=== PATIENT | male | born 1945 | race Caucasian/White ===

== ENCOUNTER 2023-02-10 18:30 | Outpatient (RCR) | payer MEDICARE, OTHER, SELFPAY | END 2023-03-06 23:59 | disposition home or self-care (01) | LOC: MM 18:30 | PROVIDERS: PCP Family Medicine; Visit Provider Internal Medicine | DX: Z51.81 Encounter for therapeutic drug level monitoring (principal); Z79.01 Long term (current) use of anticoagulants; I82.409 Acute embolism and thrombosis of unspecified deep veins of unspecified lower extremity | CPT/HCPCS: 85610; G0463 ==

== ENCOUNTER 2023-02-14 07:14 | Outpatient (OUT) | payer MEDICARE, OTHER, SELFPAY ==
[2023-02-14 07:53] LABS: Anion Gap 8.2; BUN Creatinine Ratio 20.2; Calcium 9.2 mg/dL (8.5-10.1); Carbon Dioxide 34.7 mmol/L (21.0-32.0); Chloride 102 mmol/L (98-107); Estimated GFR (African America >60 (>=60); Estimated GFR (Non-African Ame 54 (>=60); Glucose 92 mg/dL (74-106); Potassium 3.9 mmol/L (3.5-5.1); Sodium 141 mmol/L (136-145)
[2023-02-14 07:55] LABS: Chol HDL Ratio 3.4; Cholesterol 189 mg/dL (<=200); HDL Cholesterol 56 mg/dL (40-60); Triglycerides 85 mg/dL (<=150)
== END 2023-02-14 07:15 ==
LOC: LAB 07:14
PROVIDERS: PCP Internal Medicine
DX: I50.32 Chronic diastolic (congestive) heart failure (principal); E78.5 Hyperlipidemia, unspecified
CPT/HCPCS: 36415; 80048; 80061

== ENCOUNTER 2023-03-11 10:35 | Outpatient (RCR) | payer MEDICARE, OTHER, SELFPAY | END 2023-04-06 17:13 | disposition home or self-care (01) | LOC: MM 10:35 | PROVIDERS: PCP Internal Medicine; Visit Provider Internal Medicine | DX: Z51.81 Encounter for therapeutic drug level monitoring (principal); Z79.01 Long term (current) use of anticoagulants; I82.409 Acute embolism and thrombosis of unspecified deep veins of unspecified lower extremity; Z86.711 Personal history of pulmonary embolism ==

== ENCOUNTER 2023-03-13 07:43 | Outpatient (OUT) | payer MEDICARE, OTHER, SELFPAY ==
[2023-03-13 08:47] LABS: Basophils Percent Auto 0.5 % (0.2-2.0); Eosinophils Absolute Auto 0.1 10^3/uL (0.0-0.7); Eosinophils Percent Auto 1.3 % (0.9-7.0); Hematocrit 38.8 % (42.0-54.0); Hemoglobin 12.5 g/dL (14.0-18.0); Immature Granulocytes Abs Auto 0.04 10^3/uL (0.00-0.03); Immature Granulocytes Pct Auto 0.5 % (0.0-0.5); Lymphocytes Absolute Auto 1.9 10^3/uL (1.2-3.8); Lymphocytes Percent Auto 24.5 % (20.5-60.0); Mean Corpuscular HGB Conc 32.2 g/dL (29.9-35.2); Mean Corpuscular Hemoglobin 29.6 pg (25.9-34.0); Mean Corpuscular Volume 91.7 fL (80.0-94.0); Mean Platelet Volume 9.9 fL (9.5-13.5); Monocytes Absolute Auto 0.6 10^3/uL (0.3-0.8); Monocytes Percent Auto 7.4 % (1.7-12.0); Neutrophils Absolute Auto 5.1 10^3/uL (1.4-6.5); Neutrophils Percent Auto 65.8 % (43.0-75.0); Platelet Count 263 10^3/uL (150-450); Red Blood Count 4.23 10^6/uL (4.70-6.10); White Blood Count 7.7 10^3/uL (4.0-11.0)
[2023-03-13 09:45] LABS: Alanine Aminotransferase 15 U/L (16-63); Albumin Globulin Ratio 1.1; Albumin Level 3.4 g/dL (3.4-5.0); Alkaline Phosphatase 92 U/L (46-116); Anion Gap 6.6; Aspartate Amino Transferase 14 U/L (15-37); Bilirubin Total 0.5 mg/dL (0.2-1.0); Calcium 8.7 mg/dL (8.5-10.1); Carbon Dioxide 33.8 mmol/L (21.0-32.0); Chloride 104 mmol/L (98-107); Chol HDL Ratio 2.6; Cholesterol 141 mg/dL (<=200); Estimated GFR (African America >60 (>=60); Estimated GFR (Non-African Ame 58 (>=60); Free T3 1.69 pg/mL (2.18-3.98); Glucose 84 mg/dL (74-106); HDL Cholesterol 54 mg/dL (40-60); LDL Cholesterol Calculated 72.4 mg/dL; Potassium 3.4 mmol/L (3.5-5.1); Sodium 141 mmol/L (136-145); Thyroid Stimulating Hormone 1.453 uIU/mL (0.358-3.740); Total Protein 6.4 g/dL (6.4-8.2); Triglycerides 73 mg/dL (<=150); VLDL CHOLESTEROL 14.6 mg/dL
[2023-03-13 09:46] LABS: Estimated Average Glucose 117 mg/dL; Glycohemoglobin A1C 5.7 % (4.5-6.2)
[2023-03-13 10:03] LABS: Prostate Specific Antigen Scrn 0.29 ng/mL (<=4.00)
== END 2023-03-13 07:44 | disposition home or self-care (01) ==
LOC: LAB 07:44
PROVIDERS: PCP Family Medicine; Visit Provider Family Medicine
DX: R53.83 Other fatigue (principal); I10 Essential (primary) hypertension; G47.33 Obstructive sleep apnea (adult) (pediatric); E11.40 Type 2 diabetes mellitus with diabetic neuropathy, unspecified; E78.5 Hyperlipidemia, unspecified; Z12.5 Encounter for screening for malignant neoplasm of prostate
CPT/HCPCS: 36415; 80053; 80061; 83036; 84436; 84443; 84479; 84481; 85025; G0103

== ENCOUNTER 2023-04-07 10:03 | Outpatient (RCR) | payer MEDICARE, OTHER, SELFPAY | END 2023-05-07 17:47 | disposition home or self-care (01) | LOC: MM 10:03 | PROVIDERS: PCP Family Medicine; Visit Provider Internal Medicine | DX: Z51.81 Encounter for therapeutic drug level monitoring (principal); Z79.01 Long term (current) use of anticoagulants; I82.409 Acute embolism and thrombosis of unspecified deep veins of unspecified lower extremity; Z86.711 Personal history of pulmonary embolism | CPT/HCPCS: 85610; G0463 ==

== ENCOUNTER 2023-04-09 07:37 | Outpatient (OUT) | payer MEDICARE, OTHER, SELFPAY ==
[2023-04-09 12:48] VITALS: BP 156/95; PULSE 70; RESP 20; TEMP 37.1; O2SAT 97
--- NOTE | 2023-04-09 12:48 | PC.NURSE ---
Pt. 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 Pt. ambulates with cane. VSS. Denies questions on medication. Medicated with Leqvio 284mg sq to left arm. No bleeding to site. Pt. tolerated without c/o. Pt. taken to car via w/c per this RN. Pt. d/c'd to home.
[2023-04-09] MEDS: INCLISIRAN SODIUM 284 MG/1.5 ML SYRINGE SQ (13:02)
== END 2023-04-09 07:38 | disposition home or self-care (01) ==
LOC: INF 07:38
PROVIDERS: PCP Family Medicine; Visit Provider Nurse Practitioner Family
DX: E78.2 Mixed hyperlipidemia (principal)
CPT/HCPCS: 96372; G0463; J1306

== ENCOUNTER 2023-04-15 13:58 | Outpatient (OUT) | payer MEDICARE, OTHER, SELFPAY ==
--- NOTE | 2023-04-15 14:32 | CA_ITS ---
Patient: YANN FRANCIS Exam Date: 04/15/2023 : 1945 Gender:M Ordering : ERNIE PRECIADOO Admission #: [id number] Family : Order #: [id number] CLICK HERE TO VIEW EXAM ECHOCARDIOGRAM REPORT PROCEDURE: CA ECHO DOPPLER COMPLETE INDICATIONS: Atrial fibrillation, pacemaker, hypertension, DE, PTCA COMPARISON: None. DESCRIPTION: COMPLETE ECHOCARDIOGRAM Real-time transthoracic echocardiography with 2D, M-mode, spectral and color flow Doppler performed. QUALITY: Technically difficult due to patients condition. LEFT VENTRICLE: Normal chamber size. Mild concentric left ventricular hypertrophy. Systolic function is difficult to assess due to poor endocardial border definition but appears at the lower limits of normal. LV EF: Lower limits of normal left ventricular ejection fraction, (50-55%). DIASTOLIC: Diastolic function is indeterminate. ATRIAL SEPTUM: LEFT ATRIUM: Normal chamber size. RIGHT ATRIUM: Normal chamber size. RIGHT VENTRICLE: Normal chamber size. Normal systolic function. Pacer wire present. TRICUSPID VALVE: Normal mobility and thickness. No stenosis with trivial regurgitation. No evidence of pulmonary hypertension. RVSP 32 mmHg MITRAL VALVE: Normal mobility and thickness. No evidence of mitral valve stenosis. There is no mitral annular calcification. No mitral regurgitation. AORTIC VALVE: Not well visualized. No evidence of stenosis. Trivial aortic regurgitation. AORTIC ROOT: Normal diameter and appearance. PULMONIC VALVE: Not well visualized. PERICARDIUM: No evidence of pericardial effusion. IVC: Not well visualized. PLEURA: CONCLUSION: 1. Technically difficult study with poor sound transmission. 2. Mild concentric left ventricular hypertrophy. 3. Systolic function is difficult to assess but appears at the lower limits of normal. LVEF is 50 to 55%. 4. Normal right ventricular size and systolic function. 5. No evidence of significant valvular dysfunction. 6. Normal right-sided pressures. Adult Echocardiography Procedure Report Left Ventricle LVEDD (3.7 - 5.6 cm): 3.76 cm LVESD (2.2 - 4.0 cm): 2.46 cm LVIVS thickness (0.6 - 1.2 cm): 1.25 cm LVPW thickness (0.5 - 1.0 cm): 1.29 cm e': 0.09 m/s E - e': 4.27 LVOT Max Gradient: 2.30 mm[Hg] LVOT Area (cm2): 0.76 m/s Peak Velocity (LVOT): 0.76 m/s Mean Velocity (LVOT): 0.55 m/s LVOT Diameter 2.45 cm Left Atrium LA Volume Index (2D A2C): 30.62 ml/m2 Mitral Valve MV E to A Ratio: 0.40 Mitral Valve A-Wave Peak Velocity: 0.92 m/s Mitral Valve E-Wave Peak Velocity: 0.37 m/s Right Ventricle Aorta AO Root Diam: 3.38 cm Aortic Valve AoV Area (Peak Johnathon): 2.95 cm2, 2.95 cm2 AoV Area (VTI): 2.71 cm2, 2.71 cm2 Peak Velocity(Antegrade Flow): 1.21 m/s Peak Gradient(Antegrade Flow): 5.89 mm[Hg] Mean Velocity(Antegrade Flow): 0.82 m/s Mean Gradient(Antegrade Flow): 3.16 mm[Hg] Velocity Time Integral: 23.52 cm Tricuspid Valve Peak Velocity (Regurgitant Flow): 2.68 m/s Pulmonic Valve Right Atrium Right Atrium Systolic Pressure: 49.63 ml, 49.63 ml Dictated by: Pacheco Hopson M.D. on 04/15/2023 at 17:06 Approved by: Pacheco Hopson M.D. on 04/15/2023 at 17:10
== END 2023-04-15 13:59 | disposition home or self-care (01) ==
LOC: CARD 13:58
PROVIDERS: PCP Family Medicine; Visit Provider Internal Medicine Cardiovascular Disease
DX: I48.0 Paroxysmal atrial fibrillation (principal)
CPT/HCPCS: 93306

== ENCOUNTER 2023-05-08 10:44 | Outpatient (RCR) | payer MEDICARE, OTHER, SELFPAY | END 2023-06-05 17:07 | disposition home or self-care (01) | LOC: MM 10:44 | PROVIDERS: PCP Family Medicine; Visit Provider Internal Medicine | DX: Z51.81 Encounter for therapeutic drug level monitoring (principal); Z79.01 Long term (current) use of anticoagulants; I82.409 Acute embolism and thrombosis of unspecified deep veins of unspecified lower extremity; I25.2 Old myocardial infarction | CPT/HCPCS: 85610; G0463 ==

== ENCOUNTER 2023-06-03 11:59 | Outpatient (OUT) | payer MEDICARE, OTHER, SELFPAY ==
[2023-06-03 07:49] LABS: Basophils Absolute Auto 0.1 10^3/uL (0.0-0.1); Basophils Percent Auto 0.7 % (0.2-2.0); Eosinophils Absolute Auto 0.1 10^3/uL (0.0-0.7); Eosinophils Percent Auto 1.2 % (0.9-7.0); Hemoglobin 13.9 g/dL (14.0-18.0); Immature Granulocytes Abs Auto 0.02 10^3/uL (0.00-0.03); Immature Granulocytes Pct Auto 0.2 % (0.0-0.5); Lymphocytes Absolute Auto 2.1 10^3/uL (1.2-3.8); Lymphocytes Percent Auto 26.6 % (20.5-60.0); Mean Corpuscular HGB Conc 32.3 g/dL (29.9-35.2); Mean Corpuscular Hemoglobin 30.2 pg (25.9-34.0); Mean Corpuscular Volume 93.5 fL (80.0-94.0); Monocytes Absolute Auto 0.6 10^3/uL (0.3-0.8); Monocytes Percent Auto 7.1 % (1.7-12.0); Neutrophils Absolute Auto 5.2 10^3/uL (1.4-6.5); Neutrophils Percent Auto 64.2 % (43.0-75.0); Platelet Count 185 10^3/uL (150-450); Red Cell Distribution Width 12.8 % (11.0-15.0); White Blood Count 8.1 10^3/uL (4.0-11.0)
[2023-06-03 08:09] LABS: Prothrombin Time 16.5 sec (9.0-11.6)
== END 2023-06-03 12:00 | disposition home or self-care (01) ==
LOC: LAB 06-04 11:59
PROVIDERS: PCP Family Medicine
DX: H02.002 Unspecified entropion of right lower eyelid (principal)
CPT/HCPCS: 36415; 85025; 85610

== ENCOUNTER 2023-06-08 03:46 | Outpatient (RCR) | payer MEDICARE, OTHER, SELFPAY | END 2023-07-07 17:48 | disposition home or self-care (01) | LOC: MM 03:46 | PROVIDERS: PCP Family Medicine; Visit Provider Internal Medicine | DX: Z51.81 Encounter for therapeutic drug level monitoring (principal); Z79.01 Long term (current) use of anticoagulants; I25.2 Old myocardial infarction; I82.409 Acute embolism and thrombosis of unspecified deep veins of unspecified lower extremity | CPT/HCPCS: 85610; G0463 ==

== ENCOUNTER 2023-07-08 00:33 | Outpatient (RCR) | payer MEDICARE, OTHER, SELFPAY | END 2023-08-06 16:53 | disposition home or self-care (01) | LOC: MM 00:33 | PROVIDERS: PCP Family Medicine; Visit Provider Internal Medicine | DX: Z51.81 Encounter for therapeutic drug level monitoring (principal); Z79.01 Long term (current) use of anticoagulants; I82.409 Acute embolism and thrombosis of unspecified deep veins of unspecified lower extremity; Z86.711 Personal history of pulmonary embolism | CPT/HCPCS: 85610; G0463 ==

== ENCOUNTER 2023-07-28 12:11 | Outpatient (RCR) | payer MEDICARE, OTHER, SELFPAY ==
[2023-07-28 12:45] VITALS: BP 158/78; PULSE 64; RESP 20; TEMP 36.5; O2SAT 95
--- NOTE | 2023-07-28 13:20 | PC.NURSE ---
1245: Arrived in department for med administration. Denies discomfort except feeling cold. Pleasant and conversive. Denies discomfort at this time. Med administered as ordered; tolerated well. Discharged ambulatory to private vehicle. No distress noted.
[2023-07-28] MEDS: INCLISIRAN SODIUM 284 MG/1.5 ML SYRINGE SQ (14:17)
== END 2023-08-06 23:59 | disposition home or self-care (01) ==
LOC: INF 12:11
PROVIDERS: PCP Family Medicine; Visit Provider Nurse Practitioner Family
DX: E78.2 Mixed hyperlipidemia (principal); Z51.81 Encounter for therapeutic drug level monitoring; Z79.01 Long term (current) use of anticoagulants; I82.409 Acute embolism and thrombosis of unspecified deep veins of unspecified lower extremity; Z86.711 Personal history of pulmonary embolism
CPT/HCPCS: 85610; 96372; G0463; J1306

== ENCOUNTER 2023-08-07 09:40 | Outpatient (RCR) | payer MEDICARE, OTHER, SELFPAY | END 2023-09-04 15:21 | disposition home or self-care (01) | LOC: MM 09:40 | PROVIDERS: PCP Family Medicine; Visit Provider Internal Medicine | DX: Z51.81 Encounter for therapeutic drug level monitoring (principal); Z79.01 Long term (current) use of anticoagulants; Z86.711 Personal history of pulmonary embolism ==

== ENCOUNTER 2023-09-07 02:48 | Outpatient (RCR) | payer MEDICARE, OTHER, SELFPAY | END 2023-10-07 17:06 | disposition home or self-care (01) | LOC: MM 02:48 | PROVIDERS: PCP Family Medicine; Visit Provider Internal Medicine | DX: Z51.81 Encounter for therapeutic drug level monitoring (principal); Z79.01 Long term (current) use of anticoagulants; I82.409 Acute embolism and thrombosis of unspecified deep veins of unspecified lower extremity | CPT/HCPCS: 85610; G0463 ==

== ENCOUNTER 2023-10-08 01:41 | Outpatient (RCR) | payer MEDICARE, OTHER, SELFPAY | END 2023-11-05 17:39 | disposition home or self-care (01) | LOC: MM 01:41 | PROVIDERS: PCP Family Medicine; Visit Provider Internal Medicine | DX: Z51.81 Encounter for therapeutic drug level monitoring (principal); Z79.01 Long term (current) use of anticoagulants; I82.409 Acute embolism and thrombosis of unspecified deep veins of unspecified lower extremity | CPT/HCPCS: 85610; G0463 ==

== ENCOUNTER 2023-11-06 03:21 | Outpatient (RCR) | payer MEDICARE, OTHER, SELFPAY | END 2023-12-04 13:59 | disposition home or self-care (01) | LOC: MM 03:21 | PROVIDERS: PCP Family Medicine; Visit Provider Internal Medicine | DX: Z51.81 Encounter for therapeutic drug level monitoring (principal); Z79.01 Long term (current) use of anticoagulants; I82.409 Acute embolism and thrombosis of unspecified deep veins of unspecified lower extremity; Z86.711 Personal history of pulmonary embolism | CPT/HCPCS: 85610; G0463 ==

== ENCOUNTER 2023-12-07 00:16 | Outpatient (RCR) | payer MEDICARE, OTHER, SELFPAY | END 2024-01-05 17:57 | disposition home or self-care (01) | LOC: MM 00:16 | PROVIDERS: PCP Family Medicine; Visit Provider Internal Medicine | DX: Z51.81 Encounter for therapeutic drug level monitoring (principal); Z79.01 Long term (current) use of anticoagulants; I82.409 Acute embolism and thrombosis of unspecified deep veins of unspecified lower extremity ==

== ENCOUNTER 2024-01-06 04:37 | Outpatient (RCR) | payer MEDICARE, OTHER, SELFPAY | END 2024-02-05 11:54 | disposition home or self-care (01) | LOC: MM 04:37 | PROVIDERS: PCP Family Medicine; Visit Provider Internal Medicine | DX: Z51.81 Encounter for therapeutic drug level monitoring (principal); Z79.01 Long term (current) use of anticoagulants; I82.409 Acute embolism and thrombosis of unspecified deep veins of unspecified lower extremity | CPT/HCPCS: 85610; G0463 ==

== ENCOUNTER 2024-02-08 03:11 | Outpatient (RCR) | payer MEDICARE, OTHER, SELFPAY | END 2024-03-04 10:20 | disposition home or self-care (01) | LOC: MM 03:11 | PROVIDERS: PCP Family Medicine; Visit Provider Internal Medicine | DX: Z51.81 Encounter for therapeutic drug level monitoring (principal); Z79.01 Long term (current) use of anticoagulants; I82.409 Acute embolism and thrombosis of unspecified deep veins of unspecified lower extremity | CPT/HCPCS: 85610; G0463 ==

== ENCOUNTER 2024-03-07 00:33 | Outpatient (RCR) | payer MEDICARE, OTHER, SELFPAY | END 2024-04-06 10:15 | disposition home or self-care (01) | LOC: MM 00:33 | PROVIDERS: PCP Family Medicine; Visit Provider Internal Medicine | DX: Z51.81 Encounter for therapeutic drug level monitoring (principal); Z79.01 Long term (current) use of anticoagulants; I82.409 Acute embolism and thrombosis of unspecified deep veins of unspecified lower extremity | CPT/HCPCS: 85610; G0463 ==

== ENCOUNTER 2024-03-07 07:36 | Outpatient (RCR) | payer MEDICARE, OTHER, SELFPAY ==
[2024-03-07 12:50] VITALS: BP 120/76; PULSE 55; TEMP 36.2; O2SAT 97
[2024-03-07] MEDS: INCLISIRAN SODIUM 284 MG/1.5 ML SYRINGE SQ (12:53)
== END 2024-03-17 15:36 | disposition home or self-care (01) ==
LOC: INF 07:36
PROVIDERS: PCP Family Medicine; Visit Provider Nurse Practitioner Family
DX: E78.2 Mixed hyperlipidemia (principal)
CPT/HCPCS: 96372; J1306

== ENCOUNTER 2024-03-15 12:52 | Outpatient (OUT) | payer MEDICARE, OTHER, SELFPAY ==
--- NOTE | 2024-03-15 12:54 | CA_ITS ---
Patient Name: YANN FRANCIS MR#: [id number] : 1945 Exam Date: 03/15/2024 Ordering Doctor: DR EDUARD MARCELO M.D. ECHOCARDIOGRAM REPORT PROCEDURE: CA ECHO DOPPLER COMPLETE INDICATIONS: Diastolic heart failure, Atrial fibrillation COMPARISON: None. DESCRIPTION: COMPLETE ECHOCARDIOGRAM Real-time transthoracic echocardiography with 2D, M-mode, spectral and color flow Doppler performed. QUALITY: Technical quality was good. LEFT VENTRICLE: Normal chamber size. Thickened septal wall. LV EF: Global left ventricular systolic function is moderately decreased. Visual estimation of left ventricular ejection fraction is 35-40%. Global hypokinesis. DIASTOLIC: Grade 1 diastolic dysfunction. ATRIAL SEPTUM: Inadequately seen. LEFT ATRIUM: Mild dilatation. RIGHT ATRIUM: Mild dilatation. RIGHT VENTRICLE: Normal chamber size. Normal right ventricular systolic function. Pacer wire present. TRICUSPID VALVE: Normal mobility and thickness. No stenosis with trivial regurgitation. No evidence of pulmonary hypertension. RVSP 23mmHg MITRAL VALVE: Normal mobility and thickness. No evidence of mitral valve stenosis. There is no mitral annular calcification. No mitral regurgitation. AORTIC VALVE: Normal trileaflet appearance. No visible sclerosis. Normal leaflet mobility. No evidence of aortic valve stenosis. No aortic regurgitation. AORTIC ROOT: Normal diameter and appearance. PULMONIC VALVE: Grossly normal. No stenosis. No regurgitation. PERICARDIUM: No evidence of pericardial effusion. IVC: Collapses with inspirations. Normal size CONCLUSION: 1. Global left ventricular systolic function is moderately reduced; visually estimated ejection fraction of 35 to 40% 2. Right ventricle is normal in size and systolic function 3. Grade 1 diastolic dysfunction 4. Biatrial enlargement 5. No significant valvular abnormalities Adult Echocardiography Procedure Report Left Ventricle LVEDD (3.7 - 5.6 cm): 4.92 cm LVESD (2.2 - 4.0 cm): 4.09 cm LVIVS thickness (0.6 - 1.2 cm): 1.79 cm LVPW thickness (0.5 - 1.0 cm): 0.82 cm e': 0.08 m/s E - e': 6.38 LVOT Max Gradient: 2.18 mm[Hg] LVOT Area (cm2): 0.74 m/s Peak Velocity (LVOT): 0.74 m/s Mean Velocity (LVOT): 0.48 m/s LVOT Diameter 2.00 cm Left Atrium LA Volume Index (2D A2C): 36.77 ml/m2 Left Atrium Systolic Dimension: 3.38 cm Mitral Valve MV E to A Ratio: 0.55 Mitral Valve A-Wave Peak Velocity: 0.88 m/s Mitral Valve E-Wave Peak Velocity: 0.49 m/s Right Ventricle RV Internal Diastolic Dimension: 3.58 cm Aorta AO Root Diam: 3.35 cm Aortic Valve AoV Area (Peak Johnathon): 1.98 cm2, 1.98 cm2 AoV Area (VTI): 1.81 cm2, 1.81 cm2 Peak Velocity(Antegrade Flow): 1.17 m/s Peak Gradient(Antegrade Flow): 5.49 mm[Hg] Mean Velocity(Antegrade Flow): 0.79 m/s Mean Gradient(Antegrade Flow): 2.91 mm[Hg] Velocity Time Integral: 23.92 cm Tricuspid Valve Peak Velocity (Regurgitant Flow): 2.23 m/s Pulmonic Valve Mean Gradient: 2.86 mm[Hg] Mean Velocity: 0.81 m/s Peak Velocity: 1.13 m/s Peak Gradient: 5.08 mm[Hg] Right Atrium Right Atrium Systolic Pressure: 58.33 ml, 58.33 ml Dictated by: Dai Sanabria M.D. on 03/16/2024 at 10:34 Approved by: Dai Sanabria M.D. on 03/16/2024 at 10:40
== END 2024-03-15 12:53 | disposition home or self-care (01) ==
LOC: CARD 12:52
PROVIDERS: PCP Family Medicine; Visit Provider Internal Medicine Interventional Cardiology
DX: I50.32 Chronic diastolic (congestive) heart failure (principal); I48.0 Paroxysmal atrial fibrillation
CPT/HCPCS: 93306; 93356

== ENCOUNTER 2024-04-01 07:23 | Outpatient (OUT) | payer MEDICARE, OTHER, SELFPAY ==
--- NOTE | 2024-04-01 | PCN_ITS ---
CARDIAC STRESS TEST Requesting Physician: Pacheco Hopson M.D. Procedure Date: 04/01/2024 PERFORMING PROVIDER: Jesús Payne M.D. INDICATION: Heart failure with reduced ejection fraction. STRESS TEST PROTOCOL: Lexiscan myocardial perfusion imaging. Resting heart rate: 75 Max heart rate: 78 Resting blood pressure: 148/88 Maximum blood pressure: 148/88 CONCLUSION: 1. Resting EKG demonstrated paced rhythm. 2. EKG portion of stress test is non-diagnostic due to the paced rhythm. 3. Please refer to separately interpreted and reported nuclear myocardial perfusion imaging. MTDD
--- NOTE | 2024-04-01 07:15 | NM_ITS ---
Patient Name: YANN FRANCIS MR#: [id number] : 1945 Exam Date: 04/01/2024 Ordering Doctor: DR EDUARD MARCELO M.D. RADIOLOGY REPORT PROCEDURE: NM HUY PERF SPECT REST STR COMPARISON: None. INDICATIONS: ACUTE ON CHRONIC SYSTOLIC CONGESTIVE HEART FAILURE TECHNIQUE: Exam Description: Stress/Rest one day protocol gated SPECT Rest Imagin.1 mCi Tc-99m Cardiolite IV on 04/01/2024 Stress Imaging 30.7 mCi Tc-99m Cardiolite IV on 04/01/2024 Exercise Protocol: 0.4 mg Lexiscan given IV Heart Rate (bpm): Rest: 75 Max: 78 PMHR: 55 Blood Pressure: Rest: 148/88 Max: 148/88 Symptoms: Rest and peak stress ECG findings were pending and the exercise portion of the study was pending per attending physician Dr. GALEANA . For more details please see separate cardiac stress test report. FINDINGS: QUALITY OF STUDY: PERFUSION DEFECT: LOCATION: Basal inferior. Mid-inferior. [place]. SIZE: Small (1-2 segments). SEVERITY: Moderate. TYPE: Persistent. WALL MOTION: Moderate hypokinesis: Global LV SIZE: Enlarged; EDV 145 mL. TID / TCD: None; 1.1 LVEF: Abnormal. Calculated EF 46%. SUMMARY: Myocardial perfusion imaging study has ABNORMAL findings. CONCLUSION: 1. 1. No acute or reversible ischemia. 2. Fixed mild ischemia involving the inferior wall and apex. 3. Global hypokinesis of the left ventricle. 4. Mild ventriculomegaly and low left ventricle ejection fraction. Dictated by: Wei Schwartz M.D. on 04/04/2024 at 15:51 Approved by: Wei Schwartz M.D. on 04/04/2024 at 16:03
--- OUTSIDE RECORDS SUMMARY | 2024-04-01 07:25 | XMS_ITS | CCD ---
Author Organization [facility] Care Team Providers Care Material Controller Name Role Phone DORCAS CHIN AM Unavailable Unavailable Arthur, Rashad Unavailable Unavailable HOY, CHARLIE Unavailable Unavailable MARKER, ODESSA J Unavailable Unavailable [place] Unavailable Unavailable DORCAS CHIN AM Unavailable Unavailable [place] Unavailable Unavailable KARIM, ARIANA Unavailable Unavailable PHYSICIAN, DEFAULT Unavailable Unavailable PHYSICIAN, DEFAULT Unavailable Unavailable HOY, CHARLIE Unavailable Unavailable UNKNOWN, PROVIDER Unavailable Unavailable UNKNOWN, PROVIDER Unavailable Unavailable HOY, CHARLIE Unavailable Unavailable HOY, CHARLIE Unavailable Unavailable HUANG, TIGIST Unavailable Unavailable UNKNOWN, PROVIDER Unavailable Unavailable HOY, CHARLIE Unavailable Unavailable HOY, CHARLIE Unavailable Unavailable Lincoln Charlie Primary Care Physician [phone] CUCA MEJIA Attending Unavailable Charan HARRELL Attending Unavailable FAWWAD, GONSALEZ H Admitting Unavailable HOY ., DR GUERRA Primary Care Unavailable FAWWAD, GONSALEZ H Attending Unavailable FAWWAD, GONSALEZ H Attending Unavailable FAWWAD, GONSALEZ H Admitting Unavailable HOY .DR GUERRA Primary Care Unavailable FAWWAD, GONSALEZ H Attending Unavailable FAWWAD, GONSALEZ H Admitting Unavailable HOY .DR GUERRA Primary Care Unavailable FAWWAD, GONSALEZ H Attending Unavailable FAWWAD, GONSALEZ H Admitting Unavailable HOY .DR GUERRA Primary Care Unavailable FAWWAD, GONSALEZ H Attending Unavailable FAWWAD, GONSALEZ H Admitting Unavailable HOY .DR GUERRA Primary Care Unavailable FAWWAD, GONSALEZ H Attending Unavailable FAWWAD, GONSALEZ H Admitting Unavailable HOY .DR GUERRA Primary Care Unavailable FAWWAD, GONSALEZ H Attending Unavailable FAWWAD, GONSALEZ H Admitting Unavailable HOY .DR GUERRA Primary Care Unavailable FAWWAD, GONSALEZ H Admitting Unavailable HOY ., DR GUERRA Primary Care Unavailable FAWWAD, GONSALEZ H Attending Unavailable MATTHEW, REGGIE Attending Unavailable MATTHEW, REGGIE Admitting Unavailable MATTHEW, REGGIE Consulting Unavailable HOY ., DR GUERRA Primary Care Unavailable MATTHEW, REGGIE Attending Unavailable MATTHEW, REGGIE Admitting Unavailable MATTHEW, REGGIE Consulting Unavailable HOY ., DR GUERRA Primary Care Unavailable HOY ., DR GUERRA Primary Care Unavailable SAM JR ., DR JADON Norris Consulting Unavaila ble SAM JR ., DR JADON Norris Attending Unavaila ble SAM JR ., DR JADON Norris Admitting Unavaila ble MATTHEW, REGGIE Admitting Unavailable MATTHEW, REGGIE Consulting Unavailable HOY ., DR GUERRA Primary Care Unavailable MATTHEW, REGGIE Attending Unavailable FAWWAD, GONSALEZ H Attending Unavailable FAWWAD, GONSALEZ H Admitting Unavailable HOY ., DR GUERRA Primary Care Unavailable FAWWAD, GOSNALEZ H Attending Unavailable HOY ., DR GUERRA Primary Care Unavailable FAWWAD, GONSALEZ H Admitting Unavailable FAWWAD, GONSALEZ H Admitting Unavailable HOY ., DR GUERRA Primary Care Unavailable FASIGIFREDO, GONSALEZ H Attending Unavailable ERNIE PRINGLE Referring Unavailable JUDSON HUI Attending Unavailable ERNIE PRINGLE Referring Unavailable EDUARD MARCELO Attending Unavailable ERNIE PRINGLE Referring Unavailable Allergies Allergy Classification Reported Allergen(s) Allergy Type Date of Onset Reaction(s) Facility (3 sources) black walnut pollen extract; Translations: [[id number] REDUCTASE INHIBITORS] Drug Allergy 2 [facility] (2 sources) celecoxib Drug Allergy 2 [facility] (2 sources) HMG-CoA reductase inhibitor; Translations: [statins] Drug allergy Unknown (qualifier value) [facility] (1 source) celecoxib; Translations: [CELECOXIB] Drug Allergy [facility] Medications Current Medications Medication Drug Class(es) Dates Sig (Normalized) Sig (Original) amitriptyline hydrochloride 25 mg oral tablet (1 source) Tricyclic Antidepressant Start: 06-07-2019 take 1 mg by mouth once daily at bedtime amitriptyline 25 mg Tab mg tab(s), Oral, Once a day (at bedtime), Refills(s) 0 Start Date: 06/07/19 Status: Ordered aspirin 81 mg oral tablet (1 source) Platelet Aggregation Inhibitor, Nonsteroidal Anti-inflammatory Drug Start: 06-07-2019 take 1 mg by mouth once daily Adult Aspirin 81 mg oral tablet, chewable mg tab(s), Chewed, Daily, Refills(s) 0 Start Date: 06/07/19 Status: Ordered carvedilol 3.125 mg oral tablet (1 source) alpha-Adrenergic Yuridia, beta-Adrenergic Yuridia Start: 06-07-2019 take 1 mg by mouth twice daily carvedilol 3.125 mg Tab mg tab(s), Oral, BID, Refills(s) 0 Start Date: 06/07/19 Status: Ordered docusate sodium 100 mg oral capsule (1 source) Start: 06-07-2019 take 1 capsule by mouth twice daily as needed for constipation Colace 100 mg Cap 100 mg = 1 cap(s), Oral, BID, PRN for constipation, # 20 cap(s), Refills(s) 0 Start Date: 06/07/19 Status: Ordered erythromycin 0.005 mg/mg ophthalmic ointment (1 source) Macrolide, Macrolide Antimicrobial Start: 08-26-2022 take 3 g into the eye(s) once daily in the evening erythromycin Opth 0.5% Oint Refill(s) 0, 3 gm, APPLY A THIN LAYER TO BOTH EYES EVERY EVENING Start Date: 08/26/22 Status: Ordered ferrous fumarate 325 mg oral tablet (1 source) Start: 06-13-2020 take 1 mg by mouth once daily ferrous fumarate 325 mg oral tablet mg tab(s), Oral, Daily, Refills(s) 0 Start Date: 06/13/20 Status: Ordered Iron 100 Plus (2 sources) Start: 06-07-2019 take 1 tablet by mouth once daily Iron 100 Plus tab(s), Oral, Daily, Refill(s) 0 Start Date: 06/07/19 Status: Ordered Start: 06-07-2019 take 1 tablet by zachery once daily Iron 100 Plus tab(s), Oral, Daily, Refill(s) 0 Start Date: 06/07/19 Status: Ordered 24 hr isosorbide mononitrate 30 mg extended release oral tablet (1 source) Nitrate Vasodilator Start: 06-13-2020 take 1 mg by mouth once daily in the morning isosorbide mononitrate 30 mg ER Tab mg tab(s), Oral, qAM, Refills(s) 0 Start Date: 06/13/20 Status: Ordered Melatonin (1 source) Start: 06-07-2019 melatonin Once a day (at bedtime), Refills(s) 0 Start Date: 06/07/19 Status: Ordered NIFEdipine 30 mg oral tablet (1 source) Dihydropyridine Calcium Channel Yuridia Start: 06-07-2019 take 1 mg by mouth once daily NIFEdipine 30 mg ER Tab mg tab(s), Oral, Daily, Refills(s) 0 Start Date: 06/07/19 Status: Ordered omeprazole 40 mg delayed release oral capsule (1 source) Proton Pump Inhibitor Start: 06-13-2020 take 1 mg by mouth once daily omeprazole 40 mg Cap-DR mg cap(s), Oral, Daily, Refills(s) 0 Start Date: 06/13/20 Status: Ordered Potassium Acetate (1 source) Start: 06-07-2019 potassium acetate Refills(s) 0 Start Date: 06/07/19 Status: Ordered temazepam 30 mg oral capsule (1 source) Benzodiazepine Start: 06-13-2020 take 1 capsule by mouth once daily at bedtime as needed for sleep temazepam 30 mg Cap 30 mg = 1 cap(s), Oral, Once a day (at bedtime), PRN for sleep, Refills(s) 0 Start Date: 06/13/20 Status: Ordered torsemide 20 mg oral tablet (1 source) Loop Diuretic Start: 06-07-2019 take 1 mg by mouth once daily torsemide 20 mg Tab mg tab(s), Oral, Daily, Refills(s) 0 Start Date: 06/07/19 Status: Ordered Vitamin D3 (1 source) Start: 06-07-2019 Vitamin D3 Refills(s) 0 Start Date: 06/07/19 Status: Ordered warfarin sodium 5 mg oral tablet (2 sources) Vitamin K Antagonist Start: 08-26-2022 warfarin 5 mg Tab 108 EA, TAKE DAILY DIRECTED BY COUMADIN CLINIC, Refills(s) 0 Start Date: 08/26/22 Status: Ordered Start: 06-07-2019 warfarin Oral, Daily, Refills(s) 0 Start Date: 06/07/19 Status: Ordered Completed/Discontinued Medications Medication Drug Class(es) Dates Sig (Normalized) Sig (Original) 1 ml enoxaparin sodium 150 mg/ml prefilled syringe (1 source) Low Molecular Weight Heparin Start: 08-26-2022 enoxaparin 150 mg/1 mL SC Mag 10 mL, INJECT 1 SYRINGE SUBCUTANEOUSLY ONCE EVERY EVENING, Refills(s) 0 Start Date: 08/26/22 Status: Ordered Problems Active Problems Problem Classification Problem Date Documented Da te Episodic/Chronic Acute myocardial infarction (1 source) Myocardial infarction 06-03-2019 Chronic Cardiac dysrhythmias (2 sources) Paroxysmal atrial fibrillation; Translations: [Paroxysmal atrial fibrillation] Onset: 10-22-2022 Chronic Chronic kidney disease (2 sources) Chronic kidney disease, unspecified; Translations: [Chronic kidney disease, stage 3 (moderate)] Onset: 05-14-2017 Chronic Conduction disorders (8 sources) Presence of cardiac pacemaker; Translations: [Atrioventricular block, second degree] Onset: 05-14-2017 Chronic Congestive heart failure; nonhypertensive (7 sources) Unspecified diastolic (congestive) heart failure; Translations: [Chronic diastolic (congestive) heart failure] Onset: 05-14-2017 Chronic Coronary atherosclerosis and other heart disease (11 sources) Atherosclerotic heart disease of [place] coronary artery without angina pectoris; 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] Onset: 05-14-2017 06-03-2019 Chronic Coronary atherosclerosis and other heart disease (3 sources) Presence of coronary angioplasty implant and graft; Translations: [PRESENCE OF CORONARY ANGIOPLASTY IMPLANT AND GRAFT] Onset: 05-14-2017 Episodic Diabetes mellitus with complications (1 source) Type 2 diabetes mellitus with diabetic chronic kidney disease; Translations: [TYPE 2 DIABETES MELLITUS W DIABETIC CHRONIC KIDNEY DISEASE] Onset: 05-14-2017 Chronic Diabetes mellitus without complication (1 source) Diabetes mellitus 06-03-2019 Chronic Disorders of lipid metabolism (6 sources) Mixed hyperlipidemia; Translations: [MIXED HYPERLIPIDEMIA] Onset: 07-01-2022 Chronic Esophageal disorders (1 source) Gastro-esophageal reflux disease without esophagitis; Translations: [GASTRO-ESOPHAGEAL REFLUX DISEASE WITHOUT ESOPHAGITIS] Onset: 05-14-2017 Chronic Essential hypertension (3 sources) Hypertensive disorder; Translations: [Essential (primary) hypertension] Onset: 10-22-2022 06-03-2019 Chronic Genitourinary symptoms and ill-defined conditions (1 source) Urge incontinence of urine 06-12-2020 Chronic Hyperplasia of prostate (7 sources) Benign prostatic hyperplasia without lower urinary tract symptoms; Translations: [Benign prostatic hypertrophy with outflow obstruction] Onset: 06-10-2017 Chronic Hypertension with complications and secondary hypertension (2 sources) Hypertensive chronic kidney disease with stage 1 through stage 4 chronic kidney disease, or unspecified chronic kidney disease; Translations: [Hypertensive heart and chronic kidney disease with heart failure and stage 1 through stage 4 chronic kidney disease, or unspecified chronic kidney disease] Onset: 05-14-2017 Chronic Mood disorders (1 source) Depressive disorder 06-03-2019 Chronic Nutritional deficiencies (1 source) Vitamin D deficiency, unspecified; Translations: [VITAMIN D DEFICIENCY, UNSPECIFIED] Onset: 05-14-2017 Chronic Osteoarthritis (1 source) Unspecified osteoarthritis, unspecified site; Translations: [UNSPECIFIED OSTEOARTHRITIS, UNSPECIFIED SITE] Onset: 06-10-2017 Chronic Other aftercare (3 sources) medical terminologist (current) use of anticoagulants; Translations: [medical terminologist (current) use of aspirin] Onset: 05-14-2017 Episodic Other aftercare (5 sources) Encounter for therapeutic drug level monitoring; Translations: [ENC THERAPEUTC DRUG LEVL MONITORING] Onset: 01-03-2023 Episodic Other diseases of kidney and ureters (1 source) Urinary tract obstruction; Translations: [Other obstructive and reflux uropathy] Onset: 08-26-2022 Episodic Other nutritional; endocrine; and metabolic disorders (1 source) Body mass index 40+ - severely obese 06-03-2019 Chronic Other nutritional; endocrine; and metabolic disorders (1 source) Morbid obesity 06-03-2019 Chronic Peripheral and visceral atherosclerosis (1 source) Peripheral vascular disease 06-03-2019 Chronic Phlebitis; thrombophlebitis and thromboembolism (2 sources) 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; Translations: [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] Onset: 10-22-2022 Chronic Phlebitis; thrombophlebitis and thromboembolism (8 sources) Personal history of other venous thrombosis and embolism; Translations: [Acute embolism and thrombosis of unspecified deep veins of unspecified lower extremity] Onset: 05-14-2017 Episodic Pulmonary heart disease (4 sources) Personal history of pulmonary embolism; Translations: [PERSONAL HISTORY OF PULMONARY EMBOLISM] Onset: 06-10-2017 Episodic Residual codes; unclassified (1 source) Sleep apnea 06-03-2019 Chronic Screening or history of mental health and substance abuse (2 sources) Personal history of nicotine dependence; Translations: [Ex-smoker] Onset: 05-14-2017 06-03-2019 Episodic Systemic lupus erythematosus and connective tissue disorders (1 source) Sicca syndrome, unspecified; Translations: [SICCA SYNDROME, UNSPECIFIED] Onset: 06-10-2017 Chronic Unclassified (1 source) Obstructive sleep apnea (adult) (pediatric); Translations: [OBSTRUCTIVE SLEEP APNEA (ADULT) (PEDIATRIC)] Onset: 05-14-2017 Chronic Unclassified (1 source) medical terminologist (current) use of oral hypoglycemic drugs; Translations: [MUSEUM DOCENT (CURRENT) USE OF ORAL HYPOGLYCEMIC DRUGS] Onset: 05-14-2017 Unclassified (2 sources) Unknown / UNK(Unknown) Onset: 05-14-2017 Unclassified (1 source) Stenosis of coronary artery stent, initial encounter; Translations: [STENOSIS OF CORONARY ARTERY STENT, INITIAL ENCOUNTER] Onset: 06-10-2017 Unclassified (1 source) Drug therapy finding 06-03-2019 Past or Other Problems Problem Classification Problem Date Documented Date Episodic/Chronic Complication of device; implant or graft (1 source) Displacement of cardiac electrode, initial encounter; Translations: [DISPLACEMENT OF CARDIAC ELECTRODE, INITIAL ENCOUNTER] Onset: 05-14-2017 Episodic Deficiency and other anemia (1 source) Iron deficiency anemia, unspecified; Translations: [IRON DEFICIENCY ANEMIA, UNSPECIFIED] Onset: 05-14-2017 Episodic Genitourinary symptoms and ill-defined conditions (10 sources) Nocturia; Translations: [Nocturia] Onset: 08-26-2022 Episodic Malaise and fatigue (1 source) Other fatigue; Translations: [OTHER FATIGUE] Onset: 06-10-2017 Episodic Other lower respiratory disease (1 source) Shortness of breath; Translations: [SHORTNESS OF BREATH] Onset: 06-10-2017 Episodic Unclassified (4 sources) Abnormal result of other cardiovascular function study; Translations: [ABNORMAL RESULT OF OTHER CARDIOVASCULAR FUNCTION STUDY] Onset: 06-10-2017 Episodic Results Test Name Value Interpretation Reference Range Facility 36on 03-24-2024 36 Regarding echo resul t from 03/16/2024: MD Sarah Velarde MA Let's get a stress test and see him in the office after that to optimize medical therapy. Patient's made aware. Order faxed to [facility]. [facility] Office Visiton 02-19-2024 Follow-up visit [id number] Panfilo Francis 1945 M Date Provider Department Center 02/19/2024 [facility]EDUARD MARCELO CALLIE Flaherty [facility] Family History Adopted: Yes Level of Service:08547 [place] OFFICE/OUTPATIENT ESTABLISHED MOD MDM 30 MIN [facility] Office Visiton 08-24-2023 Follow-up visit [id number] Panfilo Francis 1945 M Date Provider Department Center 08/24/2023 [place]JUDSON HUI CALLIE Flaherty [facility] Family History Adopted: Yes Level of Service:13963 [place] OFFICE/OUTPATIENT ESTABLISHED MOD MDM 30 MIN [facility] Ambulatory Visit Summaryon 1 10-27-2021 Ambulatory Visit Summary DYLON FRANCIS :1945 Visit Date:08/26/2022 Ambulatory Visit Instructions Your Diagnosis BPH with urinary obstruction Nocturia Frequent urination Other obstructive and reflux uropathy Tests Performed Urnls Dip Stick Auto w/o Microscopy POC 78020 Your Care Team Attending Physician - CUCA MEJIA PA-C Primary Care Physician - Charlie Stark MD This Is Your Medications List Contact prescribing physician if questions or concerns NIFEdipine (NIFEdipine 30 mg ER Tab) amitriptyline (amitriptyline 25 mg Tab) aspirin (Adult Aspirin 81 mg oral tablet, chewable) carvedilol (carvedilol 3.125 mg Tab) cholecalciferol (Vitamin D3) docusate (Colace 100 mg Cap) enoxaparin (enoxaparin 150 mg/1 mL SC Mag) erythromycin ophthalmic (erythromycin Opth 0.5% Oint) ferrous fumarate (ferrous fumarate 325 mg oral tablet) isosorbide mononitrate (isosorbide mononitrate 30 mg ER Tab) melatonin multivitamin with iron (Iron 100 Plus) multivitamin with iron (Iron 100 Plus) omeprazole (omeprazole 40 mg Cap-DR) potassium acetate temazepam (temazepam 30 mg Cap) torsemide (torsemide 20 mg Tab) warfarin warfarin (warfarin 5 mg Tab) Procedures Performed TURP - Transurethral resection of prostate (03/12/2016), Cystourethroscopy with dilation of urethral stricture (02/08/2016), Laser ablation of prostate (07/06/2013), Amputation of finger, Cataract surgery, Circumcision, Colonoscopy, Implantation of heart pacemaker, Placement of stent in cardiac conduit, Procedure on back, Procedure on knee, Tonsillectomy and adenoidectomy. Discharge Vitals Height 178 cm Height 70 in Weight 98.2 kg Weight 216.04 lb BMI 30.99 What to do next You Need to Schedule the Following Appointments Follow Up with CUCA MEJIA PA-C, URL When: Comments: PRN Where: [address] [place] [address] [id number] Medications What How Much When Instructions Unchanged amitriptyline (amitriptyline 25 mg Tab) By Mouth Once a day (at bedtime) Contact prescribing physician if questions or concerns Unchanged aspirin (Adult Aspirin 81 mg oral tablet, chewable) Chewed Every day Contact prescribing physician if questions or concerns Unchanged carvedilol (carvedilol 3.125 mg Tab) By Mouth 2 times a day Contact prescribing physician if questions or concerns Unchanged cholecalciferol (Vitamin D3) Contact prescribing physician if questions or concerns Unchanged docusate (Colace 100 mg Cap) 1 Capsules By Mouth 2 times a day as needed for for constipation Contact prescribing physician if questions or concerns Unchanged enoxaparin (enoxaparin 150 mg/ 1 mL SC Mag) 10 mL, INJECT 1 SYRINGE SUBCUTANEOUSLY ONCE EVERY EVENING Contact prescribing physician if questions or concerns Unchanged erythromycin ophthalmic (erythromycin Opth 0.5% Oint) 3 gm, APPLY A THIN LAYER TO BOTH EYES EVERY EVENING Contact prescribing physician if questions or concerns Unchanged ferrous fumarate (ferrous fumarate 325 mg oral tablet) By Mouth Every day Contact prescribing physician if questions or concerns Unchanged isosorbide mononitrate (isosorbide mononitrate 30 mg ER Tab) By Mouth Once a day (in the morning) Contact prescribing physician if questions or concerns Unchanged melatonin Once a day (at bedtime) Contact prescribing physician if questions or concerns Unchanged multivitamin with iron (Iron 100 Plus) By Mouth Every day Contact prescribing physician if questions or concerns Unchanged multivitamin with iron (Iron 100 Plus) By Mouth Every day Contact prescribing physician if questions or concerns Unchanged NIFEdipine (NIFEdipine 30 mg ER Tab) By Mouth Every day Contact prescribing physician if questions or concerns Unchanged omeprazole (omeprazole 40 mg Cap-DR) By Mouth Every day Contact prescribing physician if questions or concerns Unchanged potassium acetate Contact prescribing physician if questions or concerns Unchanged temazepam (temazepam 30 mg Cap) 1 Capsules By Mouth Once a day (at bedtime) as needed for for sleep Contact prescribing physician if questions or concerns Unchanged torsemide (torsemide 20 mg Tab) By Mouth Every day Contact prescribing physician if questions or concerns Unchanged warfarin By Mouth Every day Contact prescribing physician if questions or concerns Unchanged warfarin (warfarin 5 mg Tab) 108 EA, TAKE DAILY DIRECTED BY COUMADIN CLINIC Contact prescribing physician if questions or concerns Test Results Urnls Dip Stick Auto w/o Microscopy POC 18799 (08/26/2022) Bilirubin Urine Dipstick - Negative Blood Urine Dipstick - Negative Glucose Urine Dipstick - Negative Ketones Urine Dipstick - Negative Leukocytes Urine Dipstick - Trace Nitrite Urine Dipstick - Negative Protein Urine Dipstick - Negative Specific [place] Urine Dipstick - 1.015 Urine Appearance Urine Dipstick - Clear Urine Color Urine Dipstick - Yellow Urobilinogen Urine Dipstick - Normal (more content not included)... Normal [facility] Lab Reportson 08-26-2022 Lab Reports [id number] Normal [facility] Patient Educationon 08-26-20 22 Patient Education Urology Benign Prostatic Hyperplasia Benign prostatic hyperplasia (BPH) is an enlarged prostate gland that is caused by the normal aging process and not by cancer. The prostate is a walnut-sized gland that is involved in the production of semen. It is located in front of the rectum and below the bladder. The bladder stores urine and the urethra is the tube that carries the urine out of the body. The prostate may get bigger as a man gets older. An enlarged prostate can press on the urethra. This can make it harder to pass urine. The build-up of urine in the bladder can cause infection. Back pressure and infection may progress to bladder damage and kidney (renal) failure. What are the causes? This condition is part of a normal aging process. However, not all men develop problems from this condition. If the prostate enlarges away from the urethra, urine flow will not be blocked. If it enlarges toward the urethra and compresses it, there will be problems passing urine. What increases the risk? This condition is more likely to develop in men over the age of 50 years. What are the signs or symptoms? Symptoms of this condition include: ? Getting up often during the night to urinate. ? Needing to urinate frequently during the day. ? Difficulty starting urine flow. ? Decrease in size and strength of your urine stream. ? Leaking (dribbling) after urinating. ? Inability to pass urine. This needs immediate treatment. ? Inability to completely empty your bladder. ? Pain when you pass urine. This is more common if there is also an infection. ? Urinary tract infection (UTI). How is this diagnosed? This condition is diagnosed based on your medical history, a physical exam, and your symptoms. Tests will also be done, such as: ? A post-void bladder scan. This measures any amount of urine that may remain in your bladder after you finish urinating. ? A digital rectal exam. In a rectal exam, your health care provider checks your prostate by putting a lubricated, gloved finger into your rectum to feel the back of your prostate gland. This exam detects the size of your gland and any abnormal lumps or growths. ? An exam of your urine (urinalysis). ? A prostate specific antigen (PSA) screening. This is a blood test used to screen for prostate cancer. ? An ultrasound. This test uses sound waves to electronically produce a picture of your prostate gland. Your health care provider may refer you to a specialist in kidney and prostate diseases (urologist). How is this treated? Once symptoms begin, your health care provider will monitor your condition (active surveillance or watchful waiting). Treatment for this condition will depend on the severity of your condition. Treatment may include: ? Observation and yearly exams. This may be the only treatment needed if your condition and symptoms are mild. ? Medicines to relieve your symptoms, including: ? Medicines to shrink the prostate. ? Medicines to relax the muscle of the prostate. ? Surgery in severe cases. Surgery may include: ? Prostatectomy. In this procedure, the prostate tissue is removed completely through an open incision or with a laparoscope or robotics. ? Transurethral resection of the prostate (TURP). In this procedure, a tool is inserted through the opening at the tip of the penis (urethra). It is used to cut away tissue of the inner core of the prostate. The pieces are removed through the same opening of the penis. This removes the blockage. ? Transurethral incision (TUIP). In this procedure, small cuts are made in the prostate. This lessens the prostate's pressure on the urethra. ? Transurethral microwave thermotherapy (TUMT). This procedure uses microwaves to create heat. The heat destroys and removes a small amount of prostate tissue. ? Transurethral needle ablation (TUNA). This procedure uses radio frequencies to destroy and remove a small amount of prostate tissue. ? Interstitial laser coagulation (ILC). This procedure uses a laser to destroy and remove a small amount of prostate tissue. ? Transurethral electrovaporization (TUVP). This procedure uses electrodes to destroy and remove a small amount of prostate tissue. ? Prostatic urethral lift. This procedure inserts an implant to push the lobes of the prostate away from the urethra. Follow these instructions at home: ? Take skew-iba-[id number] and prescription medicines only as told by your health care provider. ? Monitor your symptoms for any changes. Contact your health care provider with any changes. ? Avoid drinking large amounts of liquid before going to bed or out in public. ? Avoid or reduce how much caffeine or alcohol you drink. ? Give yourself time when you urinate. ? Keep all follow-up visits as told by your health care provider. This is important. Contact a health care provider if: ? You have unexplained back pain. ? Your symptoms do not get better with treatment. ? You d (more content not included)... Normal [facility] Urology Office/Clinic Noteon 08-26-2022 Urology Office/Clinic Note Chief Complaint 1yr PSA HPI Staff DLS pt here today for 1yr w/PSA due to BPH, nocturia and hesitancy. PSA done 08/25/22 0.27 Increased frequency, attributes to water pills. Gets up 1x/night to void. Denies all other complaints at this time. History of Present Illness staff HPI reviewed and agree. Review of Systems PHQ Score Initial Depression Screen Score: 0 no fever, chills, malaise, myalgia. no rash/lesions. no chest pain, palpitations, or SOB. no abdominal pain, nausea, vomiting. no unilateral calf swelling, redness, pain Physical Exam Vitals & Measurements HT: 70 in HT: 178 cm WT: 98.2 kg WT: 216.04 lb BMI: 30.99 General: nontoxic, NAD Mouth: moist mucosa Lungs: normal respiratory effort Cardio: regular rate, good distal perfusion Abdomen: nondistended, no suprapubic distention or tenderness, no CVA tenderness Neurologic: Grossly normal Skin: No rashes or suspicious lesions Assessment/Plan 1. BPH with urinary obstruction (N40.1: Benign prostatic hyperplasia with lower urinary tract symptoms) S/P TURP 03/2016. Pt is currently not taking any BPH medications. Pt denies any recent bothersome urinary sxs. UA today shows trace leukocytes only. pt asymptomatic. PSA 0.27 done 08/25/2022 0.27 done 07/26/2021 0.54 done 06/08/2020 I discussed stopping the PSA checks, due to the PSA stability, and his advancing age. He is aware that his chances of developing and having problems from prostate cancer at this point are quite low. He agrees to stop the PSA checks. 2. Nocturia (R35.1: Nocturia) 1x intermittent 3. Frequent urination (R35.0: Frequency of micturition) Pt states he has increased frequency, but is likely due to water pills. Other obstructive and reflux uropathy (N13.8: Other obstructive and reflux uropathy) offered 1 yr f/u vs PRN. pt agrees w PRN f/u. Pt to call if he encounters any issues. Follow-up With When Contact Information CUCA MEJIA PA-C, URL [address] [place] [address] [phone] Additional Instructions: PRN Patient Education Benign Prostatic Hyperplasia Maadlyn Toledo, personally scribed for Cuca Mejia on 08/26/2022 13:31:22. . Documentation recorded by the scribbal Pedroza accurately reflects the services(s) I performed and decisions made by me. Authenticated by Cuca Mejia PA-C on 08/26/2022 14:28:51. Problem List/Past Medical History Ongoing Anticoagulated BMI 40.0-44.9, adult BPH with urinary obstruction Former smoker Frequent urination Hesitancy Morbid obesity Nocturia Poor urinary stream Urge incontinence Urinary hesitancy Weak urine stream Historical CAD - Coronary artery disease Depression Diabetes mellitus Hypertension Myocardial infarction PVD-peripheral vascular disease Sleep apnea Procedure/Surgical History TURP - Transurethral resection of prostate (03/12/2016), Cystourethroscopy with dilation of urethral stricture (02/08/2016), Laser ablation of prostate (07/06/2013), Amputation of finger, Cataract surgery, Circumcision, Colonoscopy, Implantation of heart pacemaker, Placement of stent in cardiac conduit, Procedure on back, Procedure on knee, Tonsillectomy and adenoidectomy. Medications Adult Aspirin 81 mg oral tablet, chewable, Chewed, Daily amitriptyline 25 mg Tab, Oral, Once a day (at bedtime) carvedilol 3.125 mg Tab, Oral, BID Colace 100 mg Cap, 100 mg= 1 cap(s), Oral, BID, PRN enoxaparin 150 mg/1 mL SC Mag erythromycin Opth 0.5% Oint ferrous fumarate 325 mg oral tablet, Oral, Daily Iron 100 Plus, Oral, Daily Iron 100 Plus, Oral, Daily isosorbide mononitrate 30 mg ER Tab, Oral, qAM melatonin, Once a day (at bedtime) NIFEdipine 30 mg ER Tab, Oral, Daily omeprazole 40 mg Cap-DR, Oral, Daily potassium acetate temazepam 30 mg Cap, 30 mg= 1 cap(s), Oral, Once a day (at bedtime), PRN torsemide 20 mg Tab, Oral, Daily Vitamin D3 warfarin, Oral, Daily warfarin 5 mg Tab Allergies statins (Unknown) Social History Alcohol - Denies Alcohol Use, 06/03/2019 Substance Abuse - Denies Substance Abuse, 06/03/2019 Tobacco Former smoker, quit more than 30 days ago Tobacco Use:. Never Smokeless Tobacco Use:., 08/26/2022 Family History Family history is negative Lab Results Ambulatory Point of Care Results Bilirubin Urine Dipstick: Negative (08/26/22 12:57:00) Blood Urine Dipstick: Negative (08/26/22 12:57:00) Glucose Urine Dipstick: Negative (08/26/22 12:57:00) Ketones Urine Dipstick: Negative (08/26/22 12:57:00) Leukocytes Urine Dipstick: Trace (08/26/22 12:57:00) Nitrite Urine Dipstick: Negative (08/26/22 12:57:00) Protein Urine Dipstick: Negative (08/26/22 12:57:00) Specific [place] Urine Dipstick: 1.015 (08/26/22 12:57:00) Urine Appearance Urine Dipstick: Clear (08/26/22 12:57:00) Urine Color Urine Dipstick: Yellow (08/26/22 12:57:00) Urobilinogen Urine Dipstick: Normal 0.2-1 E (more content not included)... Normal [facility] Comment on above: Result Comment: Electronically Signed By : CUCA MEJIA PA-C\.br\Date and Time Signed: 08/26/22 14:29 EST\.br\Electronically Co-Signed By: Madalyn Pedroza\.br\Date and Time Co-Signed: 08/26/22 13:31 EST PROF CHEM 8 (BAS METB)on Anion gap [Moles/Vol] 5.7 mmol/L Normal [facility] Comment on above: Performed By: #### BMP #### [facility] [address] [address] [address] Wili Cardona Calcium [Mass/Vol] 8.5 mg/dL Normal 8.5-10.1 [facility] Comment on above: Performed By: #### BMP #### [facility] [address] [address] [address] Wili Cardona Chloride [Moles/Vol] 100 mmol/L Normal 98-107 [facility] Comment on above: Performed By: #### BMP #### [facility] [address] [address] [address] Wili Cardona CO2 [Moles/Vol] 36.1 mmol/L Critically high 21.0-32.0 [facility] Comment on above: Performed By: #### BMP #### [facility] [address] [address] [address] Wili Cardona Creatinine [Mass/Vol] 1.29 mg/dL Normal 0.70-1.30 [facility] Comment on above: Performed By: #### BMP #### [facility] [address] [address] [address] Wili Cardona EGFR-AF [place] >60 Normal >=60 [facility] Comment on above: Performed By: #### BMP #### [facility] [address] [place] [address] Dr. Wili Cardona EGFR-NON AF [place] 54 mL/min/1.73m2 Critically low >=60 [facility] Comment on above: Performed By: #### BMP #### [facility] [address] [place] [address] Dr. Wili Cardona Glucose [Mass/Vol] 131 mg/dL Critically high 74-106 [facility] Comment on above: Performed By: #### BMP #### [facility] [address] [place] [address] Dr. Wili Cardona Potassium [Moles/Vol] 3.8 mmol/L Normal 3.5-5.1 [facility] Comment on above: Performed By: #### BMP #### [facility] [address] [place] [address] Dr. Wili Cardona Sodium [Moles/Vol] 138 mmol/L Normal 136-145 [facility] Comment on above: Performed By: #### BMP #### [facility] [address] [place] [address] Dr. Wili Cardona Urea nitrogen [Mass/Vol] 23.0 mg/dL Critically high 7.0-18.0 [facility] Comment on above: Performed By: #### BMP #### [facility] [address] [place] [address] Dr. Wili Cardona Urea nitrogen/Creatin ine [Mass ratio] 17.8 mg/mg Normal [facility] Comment on above: Performed By: #### BMP #### [facility] [address] [place] [address] Dr. Wili Cardona CBC AUTO DIFFon 08-10-2022 BASO # 0.0 103/ul Normal 0.0-0.1 [facility] Comment on above: Performed By: #### CBC #### [facility] [address] [place] [address] Dr. Wili Cardona Basophils/100 WBC (Bld) 0.3 % Normal 0.2-2.0 [facility] Comment on above: Performed By: #### CBC #### [facility] [address] [address] [address] Wili Cardona EO # 0.1 103/ul Normal 0.0-0.7 [facility] Comment on above: Performed By: #### CBC #### [facility] [address] [place] [address] Dr. Wili Cardona Eosinophils/100 WBC (Bld) 1.5 % Normal 0.9-7.0 [facility] Comment on above: Performed By: #### CBC #### [facility] [address] [place] [address] Dr. Wili Cardona Erythrocyte distribution width (RBC) [Ratio] 13.4 % Normal 11.0-15.0 [facility] Comment on above: Performed By: #### CBC #### [facility] [address] [place] [address] Dr. Wili Cardona Hematocrit (Bld) [Volume fraction] 41.1 % Critically low 42.0-54.0 [facility] Comment on above: Performed By: #### CBC #### [facility] [address] [place] [address] Dr. Wili Cardona Hemoglobin (Bld) [Mass/Vol] 13.3 g/dL Critically low 14.0-18.0 [facility] Comment on above: Performed By: #### CBC #### [facility] [address] [place] [address] Dr. Wili Cardona IG # 0.02 10e3/ul Normal 0.00-0.03 [facility] Comment on above: Performed By: #### CBC #### [facility] [address] [place] [address] Dr. Wili Cardona IG % 0.3 % Normal 0.0-0.5 [facility] Comment on above: Performed By: #### CBC #### [facility] [address] [place] [address] Dr. Wili Cardona LYMPH # 1.5 103/ul Normal 1.2-3.8 [facility] Comment on above: Performed By: #### CBC #### [facility] [address] [place] [address] Dr. Wili Cardona Lymphocytes/100 WBC (Bld) 22.7 % Normal 20.5-60.0 [facility] Comment on above: Performed By: #### CBC #### [facility] [address] [place] [address] Dr. Wili Cardona MANUAL DIFF REQ NO Normal [facility] Comment on above: Performed By: #### CBC #### [facility] [address] [place] [address] Dr. Wili Cardona MCH (RBC) [Entitic mass] 30.0 pg Normal 25.9-34.0 [facility] Comment on above: Performed By: #### CBC #### [facility] [address] [place] [address] Dr. Wili Cardona MCHC (RBC) [Mass/Vol] 32.4 g/dL Normal 29.9-35.2 [facility] Comment on above: Performed By: #### CBC #### [facility] [address] [place] [address] Dr. Wili Cardona MCV (RBC) [Entitic vol] 92.6 fL Normal 80.0-94.0 [facility] Comment on above: Performed By: #### CBC #### [facility] [address] [place] [address] Dr. Wili Cardona MONO # 0.5 103/ul Normal 0.3-0.8 [facility] Comment on above: Performed By: #### CBC #### [facility] [address] [place] [address] Dr. Wili Cardona Monocytes/100 WBC (Bld) 7.4 % Normal 1.7-12.0 [facility] Comment on above: Performed By: #### CBC #### [facility] [address] [address] [address] Wili Cardona NEUT # 4.5 103/ul Normal 1.4-6.5 [facility] Comment on above: Performed By: #### CBC #### [facility] [address] [address] [address] Wili Cardona Neutrophils/100 WBC (Bld) 67.8 % Normal 43.0-75.0 [facility] Comment on above: Performed By: #### CBC #### [facility] [address] [place] [address] Dr. Wili Cardona Platelet mean volume (Bld) [Entitic vol] 9.5 fL Normal 9.5-13.5 [facility] Comment on above: Performed By: #### CBC #### [facility] [address] [place] [address] Dr. Wili Cardona PLT 151 103/ul Normal 150-450 [facility] Comment on above: Performed By: #### CBC #### [facility] [address] [place] [address] Dr. Wili Cardona RBC 4.44 106/ul Critically low 4.70-6.10 [facility] Comment on above: Performed By: #### CBC #### [facility] [address] [place] [address] Dr. Wili Cardona WBC 6.6 103/ul Normal 4.0-11.0 [facility] Comment on above: Performed By: #### CBC #### [facility] [address] [place] [address] Dr. Wili Cardona LIPID PROFILEon 04-16-2022 CHOL-HDL RATIO NORM SEE BELOW Normal [facility] Comment on above: Result Comment: 3.3 - 4.4 LOW RISK 4.4 - 7.1 AVERAGE RISK 7.1 - 11.0 MODERATE RISK >11.0 HIGH RISK Performed By: #### L IPID, CMP #### [facility] [address] [place] [address] Dr. Wili Cardona Cholesterol [Mass/Vol] 213 mg/dL Critically high <=200 [facility] Comment on above: Performed By: #### LIPID, CMP #### [facility] [address] [address] [address] Wili Cardona Cholesterol in HDL [Mass/Vol] 54 mg/dL Normal 40-60 [facility] Comment on above: Performed By: #### LIPID, CMP #### [facility] [address] [address] [address] Wili Cardona Cholesterol in LDL [Mass/Vol] 147.2 mg/dL Normal [facility] Comment on above: Performed By: #### LIPID, CMP #### [facility] [address] [address] [address] Wili Cardona Cholesterol.tota l/Cholesterol in HDL [Mass ratio] 3.9 {ratio} Normal [facility] Comment on above: Performed By: #### LIPID, CMP #### [facility] [address] [place] [address] Dr. Wili Cardona HDL NORMAL > or = 60 mg/dl - LO W CARDIOVASCULAR RISK <40 mg/dl - HIGH CARDIOVASCULAR RISK Normal [facility] Comment on above: Performed By: #### LIPID, CMP #### [facility] [address] [place] [address] Dr. Wili Cardona LDL CALC NORMAL SEE BELOW Normal [facility] Comment on above: Result Comment: <100 mg/dl OPTIMAL 100 - 129 mg/dl NEAR OR ABOVE OPTIMAL 130 - 159 mg/dl BORDERLINE HIGH 160 - 189 mg/dl HIGH >190 mg/dl VERY HIGH Performed By: #### L IPID, CMP #### [facility] [address] [address] [address] Wili Cardona Triglyceride [Mass/Vol] 59 mg/dL Normal <=150 [facility] Comment on above: Performed By: #### LIPID, CMP #### [facility] [address] [place] [address] Dr. Wili Cardona VLDL CALC 11.8 mg/dL Normal [facility] Comment on above: Performed By: #### LIPID, CMP #### [facility] [address] [address] [address] Wili Cardona PROF 14(COMP METB)on 022 Albumin [Mass/Vol] 3.2 g/dL Critically low 3.4-5.0 [facility] Comment on above: Performed By: #### LIPID, CMP #### [facility] [address] [address] [address] Wili Cardona Albumin/Globulin [Mass ratio] 0.9 {ratio} Normal [facility] Comment on above: Performed By: #### LIPID, CMP #### [facility] [address] [place] [address] Dr. Wili Cardona ALP [Catalytic activity/Vol] 83 U/L Normal 46-116 [facility] Comment on above: Performed By: #### LIPID, CMP #### [facility] [address] [place] [address] Dr. Wili Cardona ALT [Catalytic activity/Vol] 17 U/L Normal 16-63 [facility] Comment on above: Performed By: #### LIPID, CMP #### [facility] [address] [place] [address] Dr. Wili Cardona Anion gap [Moles/Vol] 10.6 mmol/L Normal [facility] Comment on above: Performed By: #### LIPID, CMP #### [facility] [address] [place] [address] Dr. Wili Cardona AST [Catalytic activity/Vol] 16 U/L Normal 15-37 [facility] Comment on above: Performed By: #### LIPID, CMP #### [facility] [address] [place] [address] Dr. Wili Cardona Bilirubin [Mass/Vol] 0.6 mg/dL Normal 0.2-1.0 [facility] Comment on above: Performed By: #### LIPID, CMP #### [facility] [address] [place] [address] Dr. Wili Cardona Calcium [Mass/Vol] 8.9 mg/dL Normal 8.5-10.1 [facility] Comment on above: Performed By: #### LIPID, CMP #### [facility] [address] [place] [address] Dr. Wili Cardona Chloride [Moles/Vol] 102 mmol/L Normal 98-107 [facility] Comment on above: Performed By: #### LIPID, CMP #### [facility] [address] [place] [address] Dr. Wili Cardona CO2 [Moles/Vol] 32.7 mmol/L Critically high 21.0-32.0 [facility] Comment on above: Performed By: #### LIPID, CMP #### [facility] [address] [place] [address] Dr. Wili Cardona Creatinine [Mass/Vol] 1.13 mg/dL Normal 0.70-1.30 [facility] Comment on above: Performed By: #### LIPID, CMP #### [facility] [address] [place] [address] Dr. Wili Cardona EGFR-AF [place] >60 Normal >=60 [facility] Comment on above: Performed By: #### LIPID, CMP #### [facility] [address] [place] [address] Dr. Wili Cardona EGFR-NON AF [place] >60 Normal >=60 [facility] Comment on above: Performed By: #### LIPID, CMP #### [facility] [address] [place] [address] Dr. Wili Cardona Globulin (S) [Mass/Vol] 3.4 g/dL Normal [facility] Comment on above: Performed By: #### LIPID, CMP #### [facility] [address] [place] [address] Dr. Wili Cardona Glucose [Mass/Vol] 85 mg/dL Normal 74-106 [facility] Comment on above: Performed By: #### LIPID, CMP #### [facility] [address] [place] [address] Dr. Wili Cardona Potassium [Moles/Vol] 5.3 mmol/L Critically high 3.5-5.1 [facility] Comment on above: Performed By: #### LIPID, CMP #### [facility] [address] [place] [address] Dr. Wili Cardona Protein [Mass/Vol] 6.6 g/dL Normal 6.4-8.2 [facility] Comment on above: Performed By: #### LIPID, CMP #### [facility] [address] [address] [address] Wili Cardona Sodium [Moles/Vol] 140 mmol/L Normal 136-145 [facility] Comment on above: Performed By: #### LIPID, CMP #### [facility] [address] [address] [address] Wili Cardona Urea nitrogen [Mass/Vol] 21.0 mg/dL Critically high 7.0-18.0 [facility] Comment on above: Performed By: #### LIPID, CMP #### [facility] [address] [address] [address] Wili Cardona Urea nitrogen/Creatin ine [Mass ratio] 18.6 mg/mg Normal [facility] Comment on above: Performed By: #### LIPID, CMP #### [facility] [address] [place] [address] Dr. Wili Cardona Ambulatory Clinical Summaryo 09-03-2021 Ambulatory Clinical Summary {[id number] Normal [facility] Patient Educationon 09-03-20 Patient Education Urology Benign Prostatic Hyperplasia Benign prostatic hyperplasia (BPH) is an enlarged prostate gland that is caused by the normal aging process and not by cancer. The prostate is a walnut-sized gland that is involved in the production of semen. It is located in front of the rectum and below the bladder. The bladder stores urine and the urethra is the tube that carries the urine out of the body. The prostate may get bigger as a man gets older. An enlarged prostate can press on the urethra. This can make it harder to pass urine. The build-up of urine in the bladder can cause infection. Back pressure and infection may progress to bladder damage and kidney (renal) failure. What are the causes? This condition is part of a normal aging process. However, not all men develop problems from this condition. If the prostate enlarges away from the urethra, urine flow will not be blocked. If it enlarges toward the urethra and compresses it, there will be problems passing urine. What increases the risk? This condition is more likely to develop in men over the age of 50 years. What are the signs or symptoms? Symptoms of this condition include: ? Getting up often during the night to urinate. ? Needing to urinate frequently during the day. ? Difficulty starting urine flow. ? Decrease in size and strength of your urine stream. ? Leaking (dribbling) after urinating. ? Inability to pass urine. This needs immediate treatment. ? Inability to completely empty your bladder. ? Pain when you pass urine. This is more common if there is also an infection. ? Urinary tract infection (UTI). How is this diagnosed? This condition is diagnosed based on your medical history, a physical exam, and your symptoms. Tests will also be done, such as: ? A post-void bladder scan. This measures any amount of urine that may remain in your bladder after you finish urinating. ? A digital rectal exam. In a rectal exam, your health care provider checks your prostate by putting a lubricated, gloved finger into your rectum to feel the back of your prostate gland. This exam detects the size of your gland and any abnormal lumps or growths. ? An exam of your urine (urinalysis). ? A prostate specific antigen (PSA) screening. This is a blood test used to screen for prostate cancer. ? An ultrasound. This test uses sound waves to electronically produce a picture of your prostate gland. Your health care provider may refer you to a specialist in kidney and prostate diseases (urologist). How is this treated? Once symptoms begin, your health care provider will monitor your condition (active surveillance or watchful waiting). Treatment for this condition will depend on the severity of your condition. Treatment may include: ? Observation and yearly exams. This may be the only treatment needed if your condition and symptoms are mild. ? Medicines to relieve your symptoms, including: ? Medicines to shrink the prostate. ? Medicines to relax the muscle of the prostate. ? Surgery in severe cases. Surgery may include: ? Prostatectomy. In this procedure, the prostate tissue is removed completely through an open incision or with a laparoscope or robotics. ? Transurethral resection of the prostate (TURP). In this procedure, a tool is inserted through the opening at the tip of the penis (urethra). It is used to cut away tissue of the inner core of the prostate. The pieces are removed through the same opening of the penis. This removes the blockage. ? Transurethral incision (TUIP). In this procedure, small cuts are made in the prostate. This lessens the prostate's pressure on the urethra. ? Transurethral microwave thermotherapy (TUMT). This procedure uses microwaves to create heat. The heat destroys and removes a small amount of prostate tissue. ? Transurethral needle ablation (TUNA). This procedure uses radio frequencies to destroy and remove a small amount of prostate tissue. ? Interstitial laser coagulation (ILC). This procedure uses a laser to destroy and remove a small amount of prostate tissue. ? Transurethral electrovaporization (TUVP). This procedure uses electrodes to destroy and remove a small amount of prostate tissue. ? Prostatic urethral lift. This procedure inserts an implant to push the lobes of the prostate away from the urethra. Follow these instructions at home: ? Take ulsu-kja-zyisdtb and prescription medicines only as told by your health care provider. ? Monitor your symptoms for any changes. Contact your health care provider with any changes. ? Avoid drinking large amounts of liquid before going to bed or out in public. ? Avoid or reduce how much caffeine or alcohol you drink. ? Give yourself time when you urinate. ? Keep all follow-up visits as told by your health care provider. This is important. Contact a health care provider if: ? You have unexplained back pain. ? Your symptoms do not get better with treatment. ? You d (more content not included)... Normal [facility] Urology Office/Clinic Noteon 09-03-2021 Urology Office/Clinic Note Chief Complaint Patient in office for f/u to PSA HPI Staff Patient in office for f/u to PSA. Previous PSA was done on 06/12/2020 w/a result of 0.33. Most recent PSA was done on 07/26/2021 w/a result of 0.27. States he has been doing well. States he continues to take his water pill as prescribed. Denies any issues or concerns at this time. Dysuria: denies Incomplete bladder emptying: denies Hematuria: denies Frequency: admits, due to water pill Urgency: admits, due to water pill Nocturia: 1 x a night Stream: steady Leaking: denies Post void dripping: denies Wearing pads/ Depends: denies Urge incontinence: denies Stress incontinence: denies Incontinence without Sensory Awareness: denies Abdominal pain: denies Flank pain: denies Sexual complaints: _ History of Present Illness reviewed UA. reviewed PSA. reviewed last encounter. There have been no associated fever, chills, flank pain or blood in the urine. Review of Systems ROS - Provider Constitutional: denies weight loss, denies hot flashes. Eyes: denies eye problems. Gastrointestinal: denies nausea, denies vomiting. Cardiovascular: denies chest pain or angina. Integumentary: no dryness Musculoskeletal: denies musculoskeletal symptoms. ENMT: denies otolaryngeal symptoms. Respiratory: no shortness of breath. Heme/Lymph: denies easy bleeding tendency, denies easy bruising tendency. Psychiatric: no confusion, no anxiety. Genitourinary: denies dysuria, denies hematuria, denies discharge, denies urinary frequency, moderate urinary hesitancy, mild nocturia, denies incontinence, denies genital sores, denies decreased libido, and denies erectile dysfunction. Physical Exam Vitals & Measurements HR: 78(Peripheral) BP: 140/86 WT: 102.6 kg WT: 102.6 kg General Appearance: alert, no distress, well nourished, well developed male. Genitourinary: normal scrotum, normal testes, normal urethra, normal epididymis, normal vas deferens/spermatic cord. Flank Pain: none. Bladder: nonpalpable. Prostate: normal prostate, estimated weight 40 gms, no hard nodule observed. Assessment/Plan This patient has a history of prostatic hyperplasia and is status post transurethral resection of the prostate in 2015. Today states he is voiding without any issues other than occasional urgency. Urinalysis is negative for infection and his PSA is 0.27 ng/mL. Prostate exam reveals a 40 g nonnodular benign feeling prostate. Patient appears to be fairly stable at this point. Our plan will be to check another PSA in 1 year. Contact office if he has any change in his voiding pattern between now and his next visit. 1. BPH with urinary obstruction (N40.1: Benign prostatic hyperplasia with lower urinary tract symptoms) S/P TURP 03/2016. Pt is currently not taking any BPH medications, and is not voicing any urinary concerns. Recent PSA was done 07/26/2021 and was at 0.27. PUJA today was normal. Pt is to call the office if there is any changes in urinary sx. Pt will return in 1 year with PSA. Ordered: PSA Total Urnls Dip Stick Auto w/o Microscopy POC 89100 2. Nocturia (R35.1: Nocturia) 1-2x intermittent Ordered: PSA Total Urnls Dip Stick Auto w/o Microscopy POC 50176 3. Urinary hesitancy (R39.11: Hesitancy of micturition) Pt states that early in the mornings he has a problem getting the stream started, but he has the urge. Ordered: PSA Total I have reviewed the previous health record information and history for this patient from Dr. Harrell Follow-up With When Contact Information Flaco Guzman MD, Jadon Norris, URO In 1 year 09/03/2022 [facility] [address], [place] [address]- Additional Instructions: PSA Patient Education Benign Prostatic Hyperplasia I, Le Fernandes, personally scribed for Dr. Sam on 09/03/2021 12:23:36. . Documentation recorded by the scribe, Le Fernandes, accurately reflects the services(s) I performed and decisions made by me. Authenticated by Dr. Sam on 09/03/2021 12:41:41. Problem List/Past Medical History Ongoing Anticoagulated BMI 40.0-44.9, adult BPH with urinary obstruction Former smoker Frequent urination Hesitancy Morbid obesity Nocturia Poor urinary stream Urge incontinence Urinary hesitancy Weak urine stream Historical CAD - Coronary artery disease Depression Diabetes mellitus Hypertension Myocardial infarction PVD-peripheral vascular disease Sleep apnea Procedure/Surgical History TURP - Transurethral resection of prostate (03/12/2016), Cystourethroscopy with dilation of urethral stricture (02/08/2016), Laser ablation of prostate (07/06/2013), Amputation of finger, Cataract surgery, Circumcision, Colonoscopy, Implantation of heart pacemaker, Placement of stent in cardiac conduit, Procedure on back, Procedure on knee, Tonsillectomy and adenoidectomy. Medications Adult Aspirin 81 mg oral ta (more content not included)... Normal [facility] Comment on above: Result Comment: Electronically Signed By : Flaco Guzman MD, Jadon Norris\.br\Date and Time Signed: 09/03/21 12:42 EST\.br\Electronically Co-Signed By: Le Fernandes MA\.br\Date and Time Co-Signed: 09/03/21 12:23 EST BASIC METABOLIC PANELon 10-0 Calcium 9.0 mg/dL Normal 8.6-10.3 [facility] Comment on above: Order Comment: No: Do not add to previou s draw Performed By: #### 1 0070, [id number], [id number] ####[facility] [place] [address], [facility] Chloride 102 mmol/L Normal 98-107 [facility] Comment on above: Order Comment: No: Do not add to previou s draw Performed By: #### 1 0070, [id number], 00400 ####[facility] [place] [address], [facility] CO2 28 mmol/L Normal 21-31 [facility] Comment on above: Order Comment: No: Do not add to previou s draw Performed By: #### 1 0070, 39278, 36546 ####[facility] [place] [address], [facility] Creatinine 1.17 mg/dL Normal 0.70-1.30 [facility] Comment on above: Order Comment: No: Do not add to previou s draw Performed By: #### 1 0070, 78968, 91354 ####[facility] [place] [address], [facility] eGFR (black) mL/min/{1.73_m2} Normal >60 [facility] Comment on above: Order Comment: No: Do not add to previou s draw Result Comment: Calc ulation may not be valid for patients over 70 years Performed By: #### 1 0070, 75671, 45596 ####[facility] [place] [address], [facility] eGFR (non-black) mL/min/{1.73_m2} Normal >60 [facility] Comment on above: Order Comment: No: Do not add to previou s draw Result Comment: Calc ulation may not be valid for patients over 70 years Performed By: #### 1 0070, 34445, 77131 ####[facility] [place] [address], [facility] Glucose mass conc 87 mg/dL Normal 70-100 [facility] Comment on above: Order Comment: No: Do not add to previou s draw Performed By: #### 1 0070, 40004, 96785 ####[facility] [place] [address], [facility] Potassium molar conc 4.3 mmol/L Normal 3.5-5.1 [facility] Comment on above: Order Comment: No: Do not add to previou s draw Performed By: #### 1 0070, 14908, 89407 ####[facility] [place] [address], [facility] Sodium 136 mmol/L Normal 136-145 [facility] Comment on above: Order Comment: No: Do not add to previou s draw Performed By: #### 1 0070, 32731, 48109 ####[facility] [place] [address], [facility] Urea nitrogen 15 mg/dL Normal 7-25 [facility] Comment on above: Order Comment: No: Do not add to previou s draw Performed By: #### 1 0070, 27256, 01143 ####[facility] [place] [address], [facility] Cardiovascular Lab Reporton 06-12-2017 Cardiovascular Lab Report [facility] Patient Name: Panfilo Francise [facility] MR #: [id number] Physician: Eduard Kathleen M.D.Medicine Service Date: 06/11/2017Division of Birthdate: 4Cardiology Room #: 3AB [id number]ovascular[place] [id number], [place] [address]Ctutf Fax Cardiovascular Laboratory ReportCARDIAC CATHETERIZATION REPORTINDICATION:Dylon Francis is a 71-year-old man, known to have coronary artery diseasestatus post stenting procedures in the past. He was recently evaluated inCardiology Clinic because of recent onset symptoms of shortness of breathon exertion and severe fatigue. A stress test showed lateral ischemia. Hewas referred for cardiac catheterization. He was admitted the night beforefor pre-cath hydration given his chronic kidney insufficiency.PROCEDURES:1. Bilateral selective coronary angiography.2. Limited left femoral angiography.3. Successful balloon dilatation and drug-eluting stenting of 90% stenosis in the proximal ramus vessel with reduction of the stenosis to 0% by deployment of a PROMUS Premier 3.5 x 16 mm drug-eluting stent.4. Administration of intracoronary nitroglycerin.5. Deployment of a vascular access closure device.METHOD:The procedure was explained to the patient with risks and benefits. Hesigned informed consent. He was brought to laborer operator in a fasting state.The Cesar's test was favorable on the left. Access in the left radialartery was attempted using ultrasound guidance, however this artery wasvery small and deemed not usable. Ultrasound of the right radial arterywas performed and this was also deemed to be too small and not usable forcardiac catheterization.Using micropuncture technique, access was obtained under ultrasoundguidance in the left common femoral artery. The inner cannula of themicropuncture catheter was advanced. Limited left femoral angiography wasperformed. The access was deemed to be at a suboptimal location, thereforethis was abandoned and manual compression applied for hemostasis. Accesswas repeated at a higher location using the same technique, limited leftfemoral angiography confirmed adequate position, therefore the access sitewas upsized using serial dilation with a stiff micropuncture catheterfollowed by a dilator of a 5-Slovenian pinnacle sheath. Eventually, we wereable to overcome the subcutaneous tissue and advance the 5-Slovenian pinnaclesheath and secure it in place.Using the angled Glidewire, the wire was advanced across the previouslyplaced aortic stent graft intraluminally and this allowed tracking of5-Slovenian diagnostic catheters. Bilateral selective coronary angiographywas then performed using a 5-Slovenian JL4 and AR modified diagnosticcatheters. Angiography was performed in multiple views.Heparin was administered intravenously and therapeutic ACT confirmed duringthe procedure. A 5-Slovenian XB3.5 guiding catheter was advanced and used toengage the left main coronary ostium. A Unocoinwater wire was advanced intothe distal ramus vessel. Balloon angioplasty in the proximal ramus wasperformed using Emerge 3.0 x 12 mm balloon, inflated at 12 atmospheres.Angiography revealed suboptimal results. Therefore, this was treated usingdeployment of a PROMUS Premier 3.5 x 16 mm drug-eluting stent deployed at11 atmospheres with repeated inflations. Angiography after administrationof intracoronary nitroglycerin showed excellent result with reduction ofthe stenosis to 0%. No evidence of dissection or perforation. The guidingcatheter was removed. The procedure was concluded. The patient was loadedwith 600 mg of Plavix at the end of the procedure. The left femoralarteriotomy site was managed with a 6-Slovenian Angio-Seal device with goodhemostasis. He tolerated the procedure well. He was transferred back tohis room.Total fluoro time 14.05 minutes.Total air Karma 2.016 Gy.Total contrast volume 100 mL.HEMODYNAMICS:AO 158/90, mean 112.CORONARY ANGIOGRAPHY:This is a right dominant circulation.Left main. This arises from left coronary cusp. It trifurcates into leftanterior descending, ramus, and circumflex vessels. Left main free ofdisease.Left anterior descending. This has a previously placed stent in its midsegment. The stent has diffuse 20% in-stent restenosis. A large 1stseptal branch is seen with high-grade stenosis.Ramus vessel. This is a large vessel, it has a 90% proximal stenosis whichwas reduced to 0% by balloon angioplasty and drug-eluting stenting asabove. The mid segment of the ramus vessel has 40% stenosis, followingwhich the vessel bifurcates into 2 branches which were free of significantdisease.Circumflex vessel. This is small and nondominant and free of disease.Right coronary artery. This arises from the right coronary cusp. This nancy large and dominant vessel, has 20% proximal and 20% mid stenosis,distally it bifurcates into PDA and PLV branches. The PLV branch has apreviously placed stent which is patent.LIMITED LEFT FEMORAL ANGIOGRAPHY:This showed initially access to be in the left profunda femoris. Accesswas abandoned and repeat access was confirmed in the left common femoralartery. There were no obstructive lesions noted in the femoral artery orits proximal branches.SUMMARY OF THE FINDINGS:1. Severe single-vessel coronary artery disease.2. 90% stenosis in the proximal ramus vessel reduced to 0% by balloon angioplasty and drug-eluting stenting.3. 40% stenosis in the mid ramus.4. 20% in-stent restenosis in the mid LAD.5. 20% proximal and mid RCA stenosis and patent PLV stent.6. Small nondominant circumflex with free of disease.RECOMMENDATIONS:1. Aspirin and statin therapy for life.2. Plavix therapy for minimum of 1 year after drug-eluting stenting.3. Resume warfarin therapy for DVT.4. Consider stopping aspirin in 3-6 months and continue plavix and warfarin therapy to reduce the risk of bleeding.5. Follow up in Cardiology Clinic.Electronically Signed by:Eduard Marcelo M.D. 06/13/2017 10:57 P Eduard Macrelo M.D.Date Dict: 06/11/2017/07:38 P/Eduard Marcelo M.D.Date Trans: 06/12/2017 04:56 P/Reji_JN:[id number]: Charlie Stark M.D. [place] [id number] [facility] [address] [facility] [id number] Normal [facility] POC GLUCOSE LABon 06-12-2017 Glucose mass conc 82 mg/dL Normal 70-100 [facility] Comment on above: Performed By: #### 95456, 65544, 04228 # ###[place] [address] Glucose mass conc 146 mg/dL High 70-100 [facility] Comment on above: Performed By: #### 83366, 80166, 89284 # ###[facility] BASIC METABOLIC PANELon 10-0 Calcium 8.5 mg/dL Low 8.6-10.3 [facility] Comment on above: Order Comment: No: Do not add to previou s draw Performed By: #### 5 6101 ####[facility] Chloride 104 mmol/L Normal 98-107 [facility] Comment on above: Order Comment: No: Do not add to previou s draw Performed By: #### 5 6101 ####[facility] CO2 28 mmol/L Normal 21-31 [facility] Comment on above: Order Comment: No: Do not add to previou s draw Performed By: #### 5 6101 ####[facility] Creatinine 1.29 mg/dL Normal 0.70-1.30 [facility] Comment on above: Order Comment: No: Do not add to previou s draw Performed By: #### 5 6101 ####[facility] eGFR (black) mL/min/{1.73_m2} Normal >60 [facility] Comment on above: Order Comment: No: Do not add to previou s draw Result Comment: Calc ulation may not be valid for patients over 70 years Performed By: #### 5 6101 ####[facility] [place] [address], [facility] eGFR (non-black) 55 ml/min/1.73sq m Abnormal >60 [facility] Comment on above: Order Comment: No: Do not add to previou s draw Result Comment: Calc ulation may not be valid for patients over 70 years Performed By: #### 5 6101 ####[facility] [place] [address], [facility] Glucose mass conc 76 mg/dL Normal 70-100 [facility] Comment on above: Order Comment: No: Do not add to previou s draw Performed By: #### 5 6101 ####[facility] [place] [address], [facility] Potassium molar conc 4.0 mmol/L Normal 3.5-5.1 [facility] Comment on above: Order Comment: No: Do not add to previou s draw Performed By: #### 5 6101 ####[facility] [place] [address], [facility] Sodium 139 mmol/L Normal 136-145 [facility] Comment on above: Order Comment: No: Do not add to previou s draw Performed By: #### 5 6101 ####[facility] [place] [address], [facility] Urea nitrogen 25 mg/dL Normal 7-25 [facility] Comment on above: Order Comment: No: Do not add to previou s draw Performed By: #### 5 6101 ####[facility] [place] [address], [facility] POC GLUCOSE LABon 06-11-2017 Glucose mass conc 70 mg/dL Normal 70-100 [facility] Comment on above: Performed By: #### 69730, 10585, 28393 # ###[facility] [place] [address], [place] Glucose mass conc 57 mg/dL Low 70-100 [facility] Comment on above: Performed By: #### 31034 ####[facility] [id number], [facility] Glucose mass conc 93 mg/dL Normal 70-100 [facility] Comment on above: Performed By: #### 95397 ####[facility] [facility] [place] [address], [facility] Glucose mass conc 64 mg/dL Low 70-100 [facility] Comment on above: Performed By: #### 01181 ####[facility] [facility] [place] [address], [facility] Glucose mass conc 75 mg/dL Normal 70-100 [facility] Comment on above: Performed By: #### 00727 ####[facility] [facility].[address] PROTHROMBIN TIMEon 7 INR Coag RelTime (PPP) 1.11 {INR} Normal 0.91-1.16 [facility] Comment on above: Order Comment: No: Do not add to previou s draw Result Comment: ACCC P RECOMMENDED INR FOR WARFARIN THERAPY CONDITION INRPROPHYLAXIS OF VENOUS THROMBOSIS 2-3(HIGH-RISK SURGERY)TREATMENT OF VENOUS THROMBOSIS 2-3TREATMENT OF PULMONARY EMBOLISM 2-3PREVENTION OF SYSTEMIC EMBOLISM: 2-3 ACUTE MYOCARDIAL INFARCTION TISSUE HEART VALVES VALVULAR HEART DISEASE ATRIAL FIBRILLATION RECURRENT SYSTEMIC EMBOLISMMECHANICAL HEART VALVE 2.5-3.5 FROM: ORAL ANTICOAGULANTS. MECHANISM OF ACTION, CLINICALEFFECTIVENESS, AND OPTIMAL THERAPEUTIC RANGE. [id number]. Performed By: #### 5 6101 ####[facility] Prothrombin time (PT) Coag time (PPP) 14.4 s Normal 12.3-14.8 [facility] Comment on above: Order Comment: No: Do not add to previou s draw Result Comment: ALL RESULTS MUST BE INTERPRETED WITH RESPECT TO BLOOD DRAWING ARTIFACTOR DILUTION ERROR OF ANTICOAGULANT AT THE TIME OF SAMPLING. Performed By: #### 5 6101 ####[facility] BASIC METABOLIC PANELon 10-0 Calcium 9.2 mg/dL Normal 8.6-10.3 [facility] Comment on above: Order Comment: No: Do not add to previou s draw Performed By: #### 5 6101 ####[facility] Chloride 100 mmol/L Normal 98-107 [facility] Comment on above: Order Comment: No: Do not add to previou s draw Performed By: #### 5 6101 ####[facility] [place] [address], [facility] CO2 29 mmol/L Normal 21-31 [facility] Comment on above: Order Comment: No: Do not add to previou s draw Performed By: #### 5 6101 ####[facility] Creatinine 1.56 mg/dL High 0.70-1.30 [facility] Comment on above: Order Comment: No: Do not add to previou s draw Performed By: #### 5 6101 ####[facility] eGFR (black) 53 ml/min/1.73sq m Abnormal >60 [facility] Comment on above: Order Comment: No: Do not add to previou s draw Result Comment: Calc ulation may not be valid for patients over 70 years Performed By: #### 5 6101 ####[facility] eGFR (non-black) 44 ml/min/1.73sq m Abnormal >60 [facility] Comment on above: Order Comment: No: Do not add to previou s draw Result Comment: Calc ulation may not be valid for patients over 70 years Performed By: #### 5 6101 ####[facility] Glucose mass conc 88 mg/dL Normal 70-100 [facility] Comment on above: Order Comment: No: Do not add to previou s draw Performed By: #### 5 6101 ####[facility] [facility].[address] Potassium molar conc 4.3 mmol/L Normal 3.5-5.1 [facility] Comment on above: Order Comment: No: Do not add to previou s draw Performed By: #### 5 6101 ####[facility] Sodium 138 mmol/L Normal 136-145 [facility] Comment on above: Order Comment: No: Do not add to previou s draw Performed By: #### 5 6101 ####[facility] [address] Urea nitrogen 29 mg/dL High 7-25 [facility] Comment on above: Order Comment: No: Do not add to previou s draw Performed By: #### 5 6101 ####[facility] CBC W/DIFFon 06-10-2017 Basophils Auto #/vol (Bld) 0.4 % Normal 0.0-2.0 [facility] Comment on above: Order Comment: No: Do not add to previou s draw Performed By: #### 5 6101 ####[facility] [place] [address], [facility] Eosinophils/100 leukocytes 2.1 % Normal 0.0-5.0 [facility] Comment on above: Order Comment: No: Do not add to previou s draw Performed By: #### 5 6101 ####[facility] Erythrocyte distribution width Auto Ratio (RBC) 14.9 % Normal 11.5-16.9 [facility] Comment on above: Order Comment: No: Do not add to previou s draw Performed By: #### 5 [id number] ####[facility] Erythrocytes (RBC) 4.60 mill/mm3 Normal 4.30-5.90 [facility] Comment on above: Order Comment: No: Do not add to previou s draw Performed By: #### 5 6101 ####[facility] Hematocrit (HCT) 40.0 % Normal 39.0-55.0 [facility] Comment on above: Order Comment: No: Do not add to previou s draw Performed By: #### 5 6101 ####[facility] [place] [address], [facility] Hemoglobin mass conc (Bld) 12.9 g/dL Low 13.9-16.3 [facility] Comment on above: Order Comment: No: Do not add to previou s draw Performed By: #### 5 6101 ####[facility] [place] [address], [facility] Lymphocytes/100 leukocytes 21.0 % Normal 20.0-40.0 [facility] Comment on above: Order Comment: No: Do not add to previou s draw Performed By: #### 5 6101 ####[facility] MCH 27.9 pg Normal 24.0-32.0 [facility] Comment on above: Order Comment: No: Do not add to previou s draw Performed By: #### 5 6101 ####[facility] [place] [address], [facility] MCHC mass conc (RBC) 32.1 g/dL Normal 32.0-36.0 [facility] Comment on above: Order Comment: No: Do not add to previou s draw Performed By: #### 5 6101 ####[facility] MCV 87.0 fL Normal 80.0-100.0 [facility] Comment on above: Order Comment: No: Do not add to previou s draw Performed By: #### 5 6101 ####[facility] METHOD Normal RBC Morphology Normal [facility] Comment on above: Order Comment: No: Do not add to previou s draw Performed By: #### 5 6101 ####[facility] MONOS 6.6 % Normal 2-8 [facility] Comment on above: Order Comment: No: Do not add to previou s draw Performed By: #### 5 6101 ####[facility] [place] [address], [facility] Neutrophils/100 leukocytes 69.9 % Normal 50-70 [facility] Comment on above: Order Comment: No: Do not add to previou s draw Performed By: #### 5 6101 ####[facility] [place] [address], [place] PLAT CNT 210 Thou/mm3 Normal 100-400 [facility] Comment on above: Order Comment: No: Do not add to previou s draw Performed By: #### 5 6101 ####[facility] WBC (Leukocytes) 8.7 Thou/mm3 Normal 4.0-10.0 [facility] Comment on above: Order Comment: No: Do not add to previou s draw Performed By: #### 5 6101 ####[facility] POC GLUCOSE LABon 06-10-2017 Glucose mass conc 97 mg/dL Normal 70-100 [facility] Comment on above: Performed By: #### [id number] ####[facility] PROTHROMBIN TIMEon 7 INR Coag RelTime (PPP) 1.10 {INR} Normal 0.91-1.16 [facility] Comment on above: Order Comment: No: Do not add to previou s draw Result Comment: ACC[facility] P RECOMMENDED INR FOR WARFARIN THERAPY CONDITION INRPROPHYLAXIS OF VENOUS THROMBOSIS 2-3(HIGH-RISK SURGERY)TREATMENT OF VENOUS THROMBOSIS 2-3TREATMENT OF PULMONARY EMBOLISM 2-3PREVENTION OF SYSTEMIC EMBOLISM: 2-3 ACUTE MYOCARDIAL INFARCTION TISSUE HEART VALVES VALVULAR HEART DISEASE ATRIAL FIBRILLATION RECURRENT SYSTEMIC EMBOLISMMECHANICAL HEART VALVE 2.5-3.5 FROM: ORAL ANTICOAGULANTS. MECHANISM OF ACTION, CLINICALEFFECTIVENESS, AND OPTIMAL THERAPEUTIC RANGE. [id number];108:231S-246S. Performed By: #### 5 6101 ####[facility] [facility].[address] Prothrombin time (PT) Coag time (PPP) 14.3 s Normal 12.3-14.8 [facility] Comment on above: Order Comment: No: Do not add to previou s draw Result Comment: ALL RESULTS MUST BE INTERPRETED WITH RESPECT TO BLOOD DRAWING ARTIFACTOR DILUTION ERROR OF ANTICOAGULANT AT THE TIME OF SAMPLING. Performed By: #### 5 6101 ####[facility] [facility].[address] Discharge Summaryon 05-18-20 Discharge Summary MR#: [id number] Admitted: 05/13/2017 Discharged: 05/16/2017 Date of : 1945 Physician: Dorcas Chin M.D. DISCHARGE SUMMARYDISCHARGING ATTENDING: Dr. Dorcas Chin.PRIMARY DIAGNOSES:1. Symptomatic advanced second-degree AV block, dual chamber (right atrium and right ventricle) AICD.2. Bradycardia.SECONDARY DIAGNOSES:1. Coronary artery disease, drug-eluting stent to LAD in 2010 and 2011. PCI and SHER to the posterolateral ventricular branch of RCA in 2003.2. Diastolic heart failure.3. Peripheral vascular disease.4. Hypertension.5. Diabetes.6. CKD.7. Obstructive sleep apnea.8. Bilateral DVT and pulmonary embolism, on Coumadin. IVC Trapeze filter placement in 2006. He was evaluated at [facility] for thrombosed IVC filter and was told that conservative management is the best option.9. Iron deficiency anemia.PROCEDURE:1. Dual chamber right atrium and right ventricular AICD on 05/14/2017.2. Right ventricular lead repositioning on 05/15/2017.HPI: Mr. Francis is a 71 years old male who was transferred from [facility] with a presyncopal episode and fatigue. His family reported thathe was dizzy, lightheaded and incoherent after dinner. EKG at [facility] showed high-degree AV block with subsequent bradycardia in the 30sto 40s. There was a concern of TIA given the episode of incoherence.However, no focal neurological findings were detected and brain CT did notshow any bleeding or ischemic changes. The patient then developedhigh-grade, second-degree AV block and complete heart block intermittently.The patient reported similar presyncopal episode of fatigue in the past.He was transferred to [facility] with symptomatic high second-degree AV block forpacemaker insertion.During hospital stay to [facility], the patient had episode of dizziness when hewas bradycardic. EKG and telemonitor showed second-degree Mobitz type 1 AVblock, second-degree 2-1 block and advanced second-degree AV block withmultiple nonconducting P-waves and bradycardia, heart rate in the 40s and60s.The patient went for pacemaker insertion on 05/14/2017. No bleeding orhematoma was seen at the device incision site. Overnight, there wasepisode of non-capturing beats. Device was interrogated and the pacemakerchest x-ray showed displaced right ventricular lead towards theinterventricular septum. Subsequently, the patient went for rightventricular lead repositioning on 05/15/2017. After lead repositioning,telemetry shows sinus rhythm, 61 to 70 beats per minute, AV paced, andblood pressure 108/87. The patient's condition was stable upon discharge.INSTRUCTIONS: The patient was instructed to keep the left arm sling at thebedtime for 6 weeks and to keep the elbow below the shoulder level.The patient will follow up the ICD device in device clinic in 1 week. Anappointment was set at 05/22/[address] Charlie Stark and the patient willfollow up with Dr. Brad Boogie in 1 month. The appointment was set at1.DISCHARGE MEDICATION: Include the following.1. Aspirin 81 mg once per day.2. Coreg 3.125 twice per day.3. Isosorbide mononitrate 30 mg at bedtime.4. Nifedipine 60 mg once daily.5. Torsemide 20 mg once daily.6. Warfarin 5 mg once daily.7. Temazepam 15 mg at bedtime.8. Omeprazole 20 mg once daily.9. KCL 40 Aury once daily.10. Glimepiride 2 mg once daily.11. Ferrous sulfate 325 twice per day.12. Vitamin D3, 2000 units capsule at bedtime.13. Colace 100 mg once at bedtime.14. Metformin 500 mg twice per day.P.R.N. MEDICATIONS:1. Acetaminophen 500 mg 2 tablets orally every 6 hours as needed.2. MiraLAX 17 g every day as needed.Reviewed By:Diaz Teran MD 05/19/2017 09:47 PElectronically Signed by:Dorcsa Chin M.D. 06/08/2017 01:30 A ____Dorcas Chin M.D. I personally saw this patient on the day of the encounter, performed thekey portion(s) of the service and participated in the management andconfirm the resident's documentation. Please note there may be anadditional personal documentation from me. Date Dict: 05/17/2017/08:48 P/SCAR Gutierrezate Trans: 05/18/2017 02:15 A/[id number]: Charlie Stark M.D. [address] [place] [address] [place] [facility] Cardiovascular Lab Reporton 05-17-2017 Cardiovascular Lab Report [facility] Patient Name: Dylon Francis [facility] MR #: [id number] Physician: Dorcas Chin,Department of M.D.Medicine Service Date: 05/15/2017Division of Birthdate: 4Cardiology Room #: 3AB [id number] [facility] [address]Phone Fax Cardiovascular Laboratory ReportPROCEDURE: Revision of RV lead.INDICATION: The patient had a pacemaker implant yesterday and was in bed,on bed rest and the next morning, the check of the device was good and thatthe interrogation showed normal pacing and sensing function. The patientwent down for x-ray and the patient told us that the patient's arms wereraised for the x-ray and afterwards, review of the x-ray showed that thelead was not in the septum, but was down in the apex. Interrogationfollowing this showed that the RV sensing and pacing was much different.Thus, the patient was brought down for revision.PROCEDURE IN DETAIL: The patient was consented prior to the procedure.This included the possibility of needing a longer lead. The patient wasbrought to the EP lab and then antibiotics were initiated as the patientwas put on continuous EKG, blood pressure, and oxygenation monitoring. Theleft upper chest was prepped and draped in usual sterile fashion. 1%lidocaine was used to locally anesthetize the incision from the pacemakerpocket and moderate sedation was used. Please see nursing notes formoderate sedation protocol. The incision was opened and blunt sharpdissection was used down to the pocket. Electrocautery was used tomaintain hemostasis and the device was taken out of the pocket. Both the Aand B are shorter leads than usual. There were only 4-5 inches on the RAlead from the suturing sleeve to the entry of the device port. There werefew more inches actually on the RV lead from the suturing sleeve to theport of the pacemaker. The lead was disconnected from the RV port (RVlead) and a stylet with a 3/4 stockbridge curve was forwarded down the lead andthe lead tip was retracted with a wrench under fluoroscopic guidance andthe lead was then repositioned in the septal portion. However, this didnot have as quite of sensing, thus the lesser curve stylet was used andthis was in slightly better position and a 3rd stylet with even less of acurve was used and this was in optimal position with R-waves of 10-12 mVamplitude and threshold was 0.4 V at 0.4 milliseconds. The lead was thenre-sutured to the pocket floor including the prepectoral fascia andpectoralis muscle and it was then reconnected to the device and irrigationwas done before the device was put into the pocket and then furtherirrigation was done with the device inside the pocket and then the pocketwas closed in 3 layers using 2-0, 3-0, and 4-0 durable suture. The toplayer was done in subcuticular technique and Dermabond glue was then placedand then this was followed by sterile Steri-Strips, Telfa, and Tegaderm.The patient tolerated the procedure well.DEVICE DATA:1. Repositioned lead.2. RV lead, Biotronik Solia S53.3. Model #41960, serial #[id number]. RV sensing was 12 mV.5. RV pacing threshold was 0.4 V at 0.4 milliseconds.6. RV lead impedance 682 ohms.7. RA lead retained and capped inside the port of the pacer.8. The check showed a P-wave of 3.4 mV, a threshold of 0.8 V at 0.4 milliseconds and the impedance was 448 ohms.9. This is a Biotronik Solia S45 cm, model #445993 and serial #[id number].Retained pulse generator model Eluna 8 DR-T, model #835180 and serial#[id number].FINAL CONCLUSIONS:1. Successful repositioning of RV lead.2. We elected since the RA lead had retained and had a very short distance from the suturing sleeve to the port of the device, that I would just use the 53 cm for the RV and this had good pacing and sensing characteristics with repositioning. If this should not stay, it should be considered that the RA lead actually be removed (45 cm) and the existing RV lead (53 cm) be used for and a new 60 cm lead be used for the RV. Hopefully, this will not be needed. The patient is going home with a sling, but I believe the radiographic technique that was done was probably the culprit of dislodging the RV lead.Electronically Signed by:Dorcas Chin M.D. 06/08/2017 01:30 A Dorcas Chin M.D.Date Dict: 05/16/2017/05:30 P/Dorcas Chin M.D.Date Trans: 05/17/2017 06:31 A/Reji_JN:[id number]: Charlie Stark M.D. [address] [place] [address] Normal [facility] BASIC METABOLIC PANELon 09-0 Calcium 8.4 mg/dL Low 8.6-10.3 [facility] Comment on above: Order Comment: No: Do not add to previou s draw Performed By: #### 5 0608 ####[facility] [place] [address], [facility] Chloride 101 mmol/L Normal 98-107 [facility] Comment on above: Order Comment: No: Do not add to previou s draw Performed By: #### 5 0608 ####[facility] [place] [address], [facility] CO2 31 mmol/L Normal 21-31 [facility] Comment on above: Order Comment: No: Do not add to previou s draw Performed By: #### 5 0608 ####[facility] [place] [address], [facility] Creatinine 1.39 mg/dL High 0.70-1.30 [facility] Comment on above: Order Comment: No: Do not add to previou s draw Performed By: #### 5 0608 ####[facility] [place] [address], [facility] eGFR (black) mL/min/{1.73_m2} Normal >60 [facility] Comment on above: Order Comment: No: Do not add to previou s draw Result Comment: Calc ulation may not be valid for patients over 70 years Performed By: #### 5 0608 ####[facility] [place] [address], [facility] eGFR (non-black) 50 ml/min/1.73sq m Abnormal >60 [facility] Comment on above: Order Comment: No: Do not add to previou s draw Result Comment: Calc ulation may not be valid for patients over 70 years Performed By: #### 5 0608 ####[facility] Glucose mass conc 70 mg/dL Normal 70-100 [facility] Comment on above: Order Comment: No: Do not add to previou s draw Performed By: #### 5 0608 ####[facility]3000 [facility] Potassium molar conc 4.0 mmol/L Normal 3.5-5.1 [facility] Comment on above: Order Comment: No: Do not add to previou s draw Performed By: #### 5 0608 ####[facility]3000 [facility].[address] Sodium 137 mmol/L Normal 136-145 [facility] Comment on above: Order Comment: No: Do not add to previou s draw Performed By: #### 5 0608 ####[facility] [facility].[address] Urea nitrogen 20 mg/dL Normal 7-25 [facility] Comment on above: Order Comment: No: Do not add to previou s draw Performed By: #### 5 0608 ####[facility]3000 [facility].[address] CBC W/DIFFon 05-16-2017 Basophils Auto #/vol (Bld) 0.5 % Normal 0.0-2.0 [facility] Comment on above: Order Comment: No: Do not add to previou s draw Performed By: #### 5 0608 ####[facility] Eosinophils/100 leukocytes 3.3 % Normal 0.0-5.0 [facility] Comment on above: Order Comment: No: Do not add to previou s draw Performed By: #### 5 0608 ####[facility] Erythrocyte distribution width Auto Ratio (RBC) 15.0 % Normal 11.5-16.9 [facility] Comment on above: Order Comment: No: Do not add to previou s draw Performed By: #### 5 0608 ####[facility] [facility] Erythrocytes (RBC) 4.59 mill/mm3 Normal 4.30-5.90 [facility] Comment on above: Order Comment: No: Do not add to previou s draw Performed By: #### 5 0608 ####[facility]3000 [facility].[address] Hematocrit (HCT) 40.0 % Normal 39.0-55.0 [facility] Comment on above: Order Comment: No: Do not add to previou s draw Performed By: #### 5 0608 ####[facility] [facility].[address] Hemoglobin mass conc (Bld) 12.8 g/dL Low 13.9-16.3 [facility] Comment on above: Order Comment: No: Do not add to previou s draw Performed By: #### 5 0608 ####[facility] [facility] [place] [address], [facility] Lymphocytes/100 leukocytes 20.3 % Normal 20.0-40.0 [facility] Comment on above: Order Comment: No: Do not add to previou s draw Performed By: #### 5 0608 ####[facility] [facility].[address] MCH 27.9 pg Normal 24.0-32.0 [facility] Comment on above: Order Comment: No: Do not add to previou s draw Performed By: #### 5 0608 ####[facility] [place] [address], [facility] MCHC mass conc (RBC) 32.1 g/dL Normal 32.0-36.0 [facility] Comment on above: Order Comment: No: Do not add to previou s draw Performed By: #### 5 0608 ####[facility] [place] [address], [facility] MCV 87.2 fL Normal 80.0-100.0 [facility] Comment on above: Order Comment: No: Do not add to previou s draw Performed By: #### 5 0608 ####[facility] [place] [address], [facility] METHOD Normal [facility] Comment on above: Order Comment: No: Do not add to previou s draw Result Comment: Auto mated differential performedNormal RBC Morphology Performed By: #### 5 0608 ####[facility] [place] [address], [facility] MONOS 8.2 % High 2-8 [facility] Comment on above: Order Comment: No: Do not add to previou s draw Performed By: #### 5 0608 ####[facility] [place] [address], [facility] Neutrophils/100 leukocytes 67.7 % Normal 50-70 [facility] Comment on above: Order Comment: No: Do not add to previou s draw Performed By: #### 5 0608 ####[facility] [place] [address], [facility] PLAT CNT 183 Thou/mm3 Normal 100-400 [facility] Comment on above: Order Comment: No: Do not add to previou s draw Performed By: #### 5 0608 ####[facility] [id number], [facility] WBC (Leukocytes) 5.7 Thou/mm3 Normal 4.0-10.0 [facility] Comment on above: Order Comment: No: Do not add to previou s draw Performed By: #### 5 0608 ####[address] POC GLUCOSE LABon 05-16-2017 Glucose mass conc 120 mg/dL High 70-100 [facility] Comment on above: Performed By: #### [address] ####[place] [address], [facility] Glucose mass conc 71 mg/dL Normal 70-100 [facility] Comment on above: Performed By: #### [id number] ####[address] PORTABLE CHEST 1 VIEWon PORTABLE CHEST 1 VIEW [facility] Iugwsfban[address] [place], [place] [address] ========Patient Name: DYLON FRANCIS : 1945Sex: MAge: Race: WhiteMRN: [id number]. Location: [id number] Status: IVisit #: [id number] Date: 05/16/2017 8:00:00 AMCompleted Date: 05/16/2017 07:24 AMRequesting Provider: DIAZ TERAN Attending Provider: ROSEMARY MONTGOMERY Report Copy To: Signs & Symptoms: Post Pacemaker/AICD PlacementHistory: Patient history not availableComments: Check Pacemaker/AICD Lead PositionExam: PORTABLE CHEST 1 VIEWAccession #: [id number] PORTABLE CHEST 1 VIEW 05/16/2017 7:24 AM EDT SIGNS AND SYMPTOMS: Post Pacemaker/AICD Placement TECHNOLOGIST COMMENTS: Check Lead placement. Patient lifted arm post placement QUESTION FOR THE RADIOLOGIST: Check Pacemaker/AICD Lead Position PROTOCOL: AP(PA) view was obtained. COMPARISON: Most recent May 15, 2017 FINDINGS: Dual lead AICD remains in place with leads projecting over the expected locations of the right atrium and right ventricle. Trachea is midline. Cardiomediastinal silhouette is unchanged. No pleural effusion. No pneumothorax. There is some persistent right middle lobe atelectasis. Lungs otherwise clear. IMPRESSION: Dual lead AICD remains in place with leads projecting over the expected locations of the right atrium and right ventricle. Approved by:Gail Garcia on 05/16/2017 7:32 AM EDT. I, Matthew Serrano, have reviewed the images and report and concur with these findings. Electronically signed by:Matthew Serrano. Transcribed by: [email or web address], User Resident: GAIL GARCIAElectronically Signed by: MATTHEW SERRANO @ 05/16/2017 10:04 AMI personally read this/these film(s) with this resident Normal [facility] Comment on above: Order Comment: No: Do not add to previou s draw PROTHROMBIN TIMEon 7 INR Coag RelTime (PPP) 1.18 {INR} High 0.91-1.16 [facility] Comment on above: Order Comment: No: Do not add to previou s draw Result Comment: [facility] P RECOMMENDED INR FOR WARFARIN THERAPY CONDITION INRPROPHYLAXIS OF VENOUS THROMBOSIS 2-3(HIGH-RISK SURGERY)TREATMENT OF VENOUS THROMBOSIS 2-3TREATMENT OF PULMONARY EMBOLISM 2-3PREVENTION OF SYSTEMIC EMBOLISM: 2-3 ACUTE MYOCARDIAL INFARCTION TISSUE HEART VALVES VALVULAR HEART DISEASE ATRIAL FIBRILLATION RECURRENT SYSTEMIC EMBOLISMMECHANICAL HEART VALVE 2.5-3.5 FROM: ORAL ANTICOAGULANTS. MECHANISM OF ACTION, CLINICALEFFECTIVENESS, AND OPTIMAL THERAPEUTIC RANGE. [id number];108:231S-246S. Performed By: #### 5 0608 ####[facility]3000 [facility].[address] Prothrombin time (PT) Coag time (PPP) 15.1 s High 12.3-14.8 [facility] Comment on above: Order Comment: No: Do not add to previou s draw Result Comment: ALL RESULTS MUST BE INTERPRETED WITH RESPECT TO BLOOD DRAWING ARTIFACTOR DILUTION ERROR OF ANTICOAGULANT AT THE TIME OF SAMPLING. Performed By: #### 5 0608 ####[facility] [facility].[address] APTTon 05-15-2017 aPTT 31.8 s Normal 25.0-35.0 [facility] Comment on above: Order Comment: if not already doneNo: Do not add to previous draw Result Comment: ALL RESULTS MUST BE INTERPRETED WITH RESPECT TO BLOOD DRAWING ARTIFACTOR DILUTION ERROR OF ANTICOAGULANT AT THE TIME OF SAMPLING.THE APTT SHOULD NOT BE USED TO MONITOR UNFRACTIONATED HEPARIN THERAPY, THIS LABORATORY NO LONGER HAS AN ESTABLISHED THERAPEUTIC RANGE BASEDON THE APTT. IT IS RECOMMENDED THAT THE UFH - HEPARIN ASSAY (ANTI-XAACTIVITY) BE USED FOR THIS PURPOSE. Performed By: #### 5 6101, 09595 ####[facility] [facility].[address] BASIC METABOLIC PANELon Calcium 8.8 mg/dL Normal 8.6-10.3 [facility] Comment on above: Order Comment: if not already doneNo: Do not add to previous draw Performed By: #### 5 610, 63609 ####[facility] [place] [address], [facility] Chloride 103 mmol/L Normal 98-107 [facility] Comment on above: Order Comment: if not already doneNo: Do not add to previous draw Performed By: #### 5 610, 18880 ####[facility] [place] [address], [place] CO2 29 mmol/L Normal 21-31 [facility] Comment on above: Order Comment: if not already doneNo: Do not add to previous draw Performed By: #### 5 610, 00903 ####[facility] [id number], [facility] Creatinine 1.71 mg/dL High 0.70-1.30 [facility] Comment on above: Order Comment: if not already doneNo: Do not add to previous draw Performed By: #### 5 610, 15237 ####[facility] [place] [address], [facility] eGFR (black) 48 ml/min/1.73sq m Abnormal >60 [facility] Comment on above: Order Comment: if not already doneNo: Do not add to previous draw Result Comment: Calc ulation may not be valid for patients over 70 years Performed By: #### 5 610, 47555 ####[facility] [place] [address], [facility] eGFR (non-black) 39 ml/min/1.73sq m Abnormal >60 [facility] Comment on above: Order Comment: if not already doneNo: Do not add to previous draw Result Comment: Calc ulation may not be valid for patients over 70 years Performed By: #### 5 6101, 95528 ####[facility] [place] [address], [place] Glucose mass conc 94 mg/dL Normal 70-100 [facility] Comment on above: Order Comment: if not already doneNo: Do not add to previous draw Performed By: #### 5 6101, 67111 ####[facility] [facility].[address] Potassium molar conc 4.9 mmol/L Normal 3.5-5.1 [facility] Comment on above: Order Comment: if not already doneNo: Do not add to previous draw Performed By: #### 5 610, 87850 ####[facility] [facility].[address] Sodium 138 mmol/L Normal 136-145 [facility] Comment on above: Order Comment: if not already doneNo: Do not add to previous draw Performed By: #### 5 610, 33782 ####[facility] Urea nitrogen 24 mg/dL Normal 7-25 [facility] Comment on above: Order Comment: if not already doneNo: Do not add to previous draw Performed By: #### 5 6100, 44332 ####[facility] [facility].[address] CBC W/DIFFon 05-15-2017 Basophils Auto #/vol (Bld) 0.4 % Normal 0.0-2.0 [facility] Comment on above: Order Comment: Unknown Performed By: #### 5 102 ####[facility] [facility].[address] Eosinophils/100 leukocytes 1.8 % Normal 0.0-5.0 [facility] Comment on above: Order Comment: Unknown Performed By: #### 5 102 ####[place] [address] [facility].[address] Erythrocyte distribution width Auto Ratio (RBC) 14.9 % Normal 11.5-16.9 [facility] Comment on above: Order Comment: Unknown Performed By: #### 5 102 ####[facility] [facility].[address] Erythrocytes (RBC) 4.72 mill/mm3 Normal 4.30-5.90 [facility] Comment on above: Order Comment: Unknown Performed By: #### 5 0103 ####[facility] [facility].[address] Hematocrit (HCT) 41.0 % Normal 39.0-55.0 [facility] Comment on above: Order Comment: Unknown Performed By: #### 0103 ####[facility] Hemoglobin mass conc (Bld) 13.1 g/dL Low 13.9-16.3 [facility] Comment on above: Order Comment: Unknown Performed By: #### 5 3 ####[facility] [facility].[address] Lymphocytes/100 leukocytes 14.3 % Low 20.0-40.0 [facility] Comment on above: Order Comment: Unknown Performed By: #### 5 0103 ####[facility] [facility].[address] MCH 27.7 pg Normal 24.0-32.0 [facility] Comment on above: Order Comment: Unknown Performed By: #### 5 0103 ####[facility] MCHC mass conc (RBC) 31.9 g/dL Low 32.0-36.0 [facility] Comment on above: Order Comment: Unknown Performed By: #### 5 0103 ####[facility] MCV 86.8 fL Normal 80.0-100.0 [facility] Comment on above: Order Comment: Unknown Performed By: #### 5 3 ####[facility] [facility] [place] [address], [facility] METHOD Normal [facility] Comment on above: Order Comment: Unknown Result Comment: Auto mated differential performedNormal RBC Morphology Performed By: #### 5 0103 ####[facility] [facility] [place] [address], [facility] MONOS 7.0 % Normal 2-8 [facility] Comment on above: Order Comment: Unknown Performed By: #### 5 0103 ####[facility] [facility] [place] [address], [facility] Neutrophils/100 leukocytes 76.5 % High 50-70 [facility] Comment on above: Order Comment: Unknown Performed By: #### 5 0103 ####[address] [place] [address], [facility] PLAT CNT 204 Thou/mm3 Normal 100-400 [facility] Comment on above: Order Comment: Unknown Performed By: #### 5 0103 ####[facility] [facility] [place] [address], [facility] WBC (Leukocytes) 6.1 Thou/mm3 Normal 4.0-10.0 [facility] Comment on above: Order Comment: Unknown Performed By: #### 5 0103 ####[address] [place] [address], [facility] CHEST AND LATERALon 05-15-20 [facility] LATERAL [facility] [address] [place] [id number] ========Patient Name: DYLON FRANCIS : 1945Sex: MAge: Race: WhiteMRN: [id number]. Location: [id number] Status: IVisit #: [id number] Date: 05/15/2017 7:00:00 AMCompleted Date: 05/15/2017 08:35 AMRequesting Provider: VANDANA BLANCO Attending Provider: ROSEMARY MONTGOMERY Report Copy To: Signs & Symptoms: Post Pacemaker/AICD PlacementHistory: Patient history not availableComments: Check Pacemaker/AICD Lead Position, Chest X-ray PA \EANDE\ LAT in Dept ;DO NOT lift affected arm above shoulder. S/P pacemaker/ICD implant. Verify lead placementExam: CHEST AND LATERALAccession #: [id number] CHEST AND LATERAL 05/15/2017 8:35 AM EDT SIGNS AND SYMPTOMS: Post Pacemaker/AICD Placement TECHNOLOGIST COMMENTS: evaluation s/p pacemaker placement QUESTION FOR THE RADIOLOGIST: Check Pacemaker/AICD Lead Position, Chest X-ray PA \EANDE\ LAT in Dept ;DO NOT lift affected arm above shoulder. S/P pacemaker/ICD implant. Verify lead placement PROTOCOL: AP(PA) and Lateral views were obtained. COMPARISON: November 16, 2014 FINDINGS: Upper mediastinum unremarkable. Heart appears enlarged but is magnified by AP portable technique and limited depth of inspiration. Right midlung atelectasis and left lower lung atelectasis along the diaphragm. No focal pneumonia or pleural effusion bony thorax unremarkable IMPRESSION: Atelectasis right midlung and left lower lobe. Electronically signed by:Malika Mendiola. Transcribed by: [email or web address], User Resident: Electronically Signed by: MALIKA MENDIOLA @ 05/15/2017 10:18 AM Normal [facility] Comment on above: Order Comment: if not already doneNo: Do not add to previous draw Cardiovascular Lab Reporton 05-15-2017 Cardiovascular Lab Report [facility] Patient Name: Dylon Francis [facility] MR #: [id number] Physician: DIANA Gtzepartment of Service Date: 05/14/2017Medicine Birthdate: [birth year]Division of Room #: 3AB [id number] [facility].[place], [place] [address]Htvrs Fax Cardiovascular Laboratory ReportPROCEDURE: Dual-chamber pacemaker implantation.PSYCHOPAEDIC NURSE: Vandana Blanco M.D.REASON FOR THE PROCEDURE: Complete heart block, second-degree high-gradeAV block, 2-1 AV block, syncope, presyncope, and bradycardia. The patientis a 71-year-old male who has extensive history of coronary artery diseasewith PCI to LAD in 2011 and also in 2010 he had another PCI to LAD, alsoPCI to RCA in 2003. He has had subsequent left heart catheterizationsincluding a few years ago that did not show any interval increase incoronary artery disease, bilateral DVTs, diverticulosis, left thighhematoma, NSTEMI, GERD, Sjogren's, BPH, vitamin D deficiency, andhyponatremia, who presented to the hospital at [facility] because he had beenhaving presyncopal episodes and extreme fatigue. His family thought he hada stroke and on 05/13/2017, he was brought to [facility]. The 1st EKG showedhigh-degree AV block with subsequent bradycardia in the 30s to 40s. Fabricio developed high-grade second-degree AV block and complete heart blockintermittently. Therefore, after looking at his findings and doing anechocardiogram that showed no significant change in the wall motionabnormality and the EF that was essentially greater than 35% with New Yorkheart Association class 2-3 symptoms, we decided to implant a dual-chamberpacemaker. After discussion of the risks, benefits, specifics, andalternatives, we decided to have him sign a consent form and bring him downto the EP lab.OPERATIVE REPORT: On 03/13/2017, the patient was brought to the EP lab, hewas prepped and draped in a sterile manner. Sedation and antibiotics weregiven per nursing notes. Subsequently after draping was done, a smallincision was made in the deltopectoral groove about 3 cm in length.Subsequently, venogram was performed of the left upper extremity. Afterthe performance of the venogram with 5 mL of contrast, access was obtainedwith the use of micropuncture needle. The access was actuallyextrathoracic axillary with no touching of anything in the thoracic cavityinside the lungs. Subsequently, after access was obtained, a micropuncturesheath was placed in a micropuncture wire. The wire was exchanged for aJ-wire. The sheath was then removed and 6-Slovenian sheath was implanted overthe J wire. A double wiring was done. The 6-Slovenian sheath was removed.One of the wires was preserved for later, the other wire had implantationof a new 6-Slovenian lead. After removal of the wire, the ventricular leadwas placed in the RV mid septum with excellent parameters. Subsequently,the sheath was torn, the lead was tied into place. The atrial lead wasthen implanted through a 6-Slovenian sheath that was placed over the otherJ-wire. The atrial lead parameters were not excellent, therefore theposition was repositioned. However, after the sheath was torn, there wasprobably a micro dislodgement because the P waves were decreasing inamplitude and also the threshold had become higher, therefore the lead wasrepositioned yet again with excellent parameters. The sheath was hadalready been torn, the lead was tied into place. After tying the leads inplace, hemostatic suture was placed actually around the venotomy site aswell. After creating the pocket, extensive irrigation was done of thepocket with antibiotic solution. After that was done, the device wasconnected to the leads. The device was placed in the pocket more,antibiotic solution irrigation was used to clean the pocket subsequently,any areas that were bleeding were electrocauterized. A stay suture wasplaced through the header then closure was performed with 2-0, 3-0, 4-0sutures followed by Dermabond, Steri-Strips, and Tegaderm. The patienttolerated the procedure well. There was minimal blood loss. There was 5mL of contrast, there was 5.2 minutes fluoroscopy.IMPRESSION:1. Successful implantation of a Biotronik dual-chamber pacemaker.2. The specifics of device are as follows. The device is a Taylor 8 DRT Pro MRI, model #889669, the serial #[id number]. The date of implant is 05/14/2017. The atrial lead is a Biotronik Solia S 45 cm, serial #[id number]. The threshold for the atrial lead is 1.4 V at 0.4 milliseconds, the P wave was 4.4 mV and the impedance is 448 ohms. The ventricular lead is a Biotronik Solia S 53, serial #[id number], model #692421. The threshold for the ventricular lead is 1 V at 0.4 milliseconds, the R-wave is 8.9 mV and impedance is 526 ohms. The mode pacing is DDD CLS 60-130.3. The patient tolerated the procedure well. There were no complications.4. 5 mL of contrast for left upper extremity venography.5. 5.2 minutes of fluoroscopy.6. Conscious sedation was used for the procedure.7. Standard postoperative care, two doses of antibiotics will be given overnight.8. Chest x-ray will be performed then subsequently along with device interrogation.9. Follow up in Device Clinic in 1 week and then 1 month.10. Postoperative care discussed with patient and family.Electronically Signed by:Ariana Ramos DO 05/21/2017 04:32 P Sindy Gtz Dict: 05/14/2017/05:38 P/Sindy Gtz Trans: 05/15/2017 02:03 P/[id number]: Charlie Stark M.D. [address] [facility] [id number] Normal [facility] MAGNESIUM BLOODon 05-15-2017 Magnesium 2.2 mg/dL Normal 1.9-2.7 [facility] Comment on above: Order Comment: if not already doneNo: Do not add to previous draw Performed By: #### 5 6101, 03457 ####[facility] [place] [address], [facility] PHOSPHORUS BLOODon 7 Phosphate 3.2 mg/dL Normal 2.5-5.0 [facility] Comment on above: Order Comment: Unknown Performed By: #### 4 1000, 94463, 88114 ####[facility] [facility] [place] [address], [place] POC GLUCOSE LABon 05-15-2017 Glucose mass conc 84 mg/dL Normal 70-100 [facility] Comment on above: Performed By: #### 45901 ####[facility] [facility] [place] [address], [place] Glucose mass conc 72 mg/dL Normal 70-100 [facility] Comment on above: Performed By: #### 87495, 73963 ####[facility] [facility] [place] [address], [place] Glucose mass conc 63 mg/dL Low 70-100 [facility] Comment on above: Performed By: #### 44705, 35531 ####[facility] [facility] [place] [address], [place] Glucose mass conc 60 mg/dL Low 70-100 [facility] Comment on above: Performed By: #### 96734, 96127 ####[facility] [facility] [place] [address], [place] Glucose mass conc 82 mg/dL Normal 70-100 [facility] Comment on above: Performed By: #### 97359, 84764 ####[facility] [facility] [place] [address], [place] Glucose mass conc 68 mg/dL Low 70-100 [facility] Comment on above: Performed By: #### 94778, 77164 ####[facility] [place] [address], [place] Glucose mass conc 95 mg/dL Normal 70-100 [facility] Comment on above: Performed By: #### 40792 ####[facility] [facility].[address] PROTHROMBIN TIMEon 7 INR Coag RelTime (PPP) 1.34 {INR} High 0.91-1.16 [facility] Comment on above: Order Comment: if not already doneNo: Do not add to previous draw Result Comment: [facility] P RECOMMENDED INR FOR WARFARIN THERAPY CONDITION INRPROPHYLAXIS OF VENOUS THROMBOSIS 2-3(HIGH-RISK SURGERY)TREATMENT OF VENOUS THROMBOSIS 2-3TREATMENT OF PULMONARY EMBOLISM 2-3PREVENTION OF SYSTEMIC EMBOLISM: 2-3 ACUTE MYOCARDIAL INFARCTION TISSUE HEART VALVES VALVULAR HEART DISEASE ATRIAL FIBRILLATION RECURRENT SYSTEMIC EMBOLISMMECHANICAL HEART VALVE 2.5-3.5 FROM: ORAL ANTICOAGULANTS. MECHANISM OF ACTION, CLINICALEFFECTIVENESS, AND OPTIMAL THERAPEUTIC RANGE. [id number]. Performed By: #### 5 6101, 89990 ####[facility] [facility].[address] Prothrombin time (PT) Coag time (PPP) 16.7 s High 12.3-14.8 [facility] Comment on above: Order Comment: if not already doneNo: Do not add to previous draw Result Comment: ALL RESULTS MUST BE INTERPRETED WITH RESPECT TO BLOOD DRAWING ARTIFACTOR DILUTION ERROR OF ANTICOAGULANT AT THE TIME OF SAMPLING. Performed By: #### 5 6101, 43634 ####[facility] [facility] [place] [address], [facility] APTTon 05-14-2017 aPTT 33.2 s Normal 25.0-35.0 [facility] Comment on above: Order Comment: if not already doneNo: Do not add to previous draw Result Comment: ALL RESULTS MUST BE INTERPRETED WITH RESPECT TO BLOOD DRAWING ARTIFACTOR DILUTION ERROR OF ANTICOAGULANT AT THE TIME OF SAMPLING.THE APTT SHOULD NOT BE USED TO MONITOR UNFRACTIONATED HEPARIN THERAPY, THIS LABORATORY NO LONGER HAS AN ESTABLISHED THERAPEUTIC RANGE BASEDON THE APTT. IT IS RECOMMENDED THAT THE UFH - HEPARIN ASSAY (ANTI-XAACTIVITY) BE USED FOR THIS PURPOSE. Performed By: #### 5 6101, 09719 ####[facility] BASIC METABOLIC PANELon 09-0 Calcium 8.9 mg/dL Normal 8.6-10.3 [facility] Comment on above: Order Comment: No: Do not add to previou s draw Performed By: #### 1 0070, 47518, 08404 ####[facility] [place] [address], [facility] Chloride 103 mmol/L Normal 98-107 [facility] Comment on above: Order Comment: No: Do not add to previou s draw Performed By: #### 1 0070, 50981, 68935 ####[facility] [place] [address], [facility] CO2 26 mmol/L Normal 21-31 [facility] Comment on above: Order Comment: No: Do not add to previou s draw Performed By: #### 1 0070, 86889, 61889 ####[facility] [place] [address], [facility] Creatinine 1.42 mg/dL High 0.70-1.30 [facility] Comment on above: Order Comment: No: Do not add to previou s draw Performed By: #### 1 0070, 35090, 80194 ####[facility] [place] [address], [facility] eGFR (black) 59 ml/min/1.73sq m Abnormal >60 [facility] Comment on above: Order Comment: No: Do not add to previou s draw Result Comment: Calc ulation may not be valid for patients over 70 years Performed By: #### 1 0070, 23784, 92782 ####[facility] [place] [address], [facility] eGFR (non-black) 49 ml/min/1.73sq m Abnormal >60 [facility] Comment on above: Order Comment: No: Do not add to previou s draw Result Comment: Calc ulation may not be valid for patients over 70 years Performed By: #### 1 0070, 87833, 68428 ####[facility] [place] [address], [facility] Glucose mass conc 74 mg/dL Normal 70-100 [facility] Comment on above: Order Comment: No: Do not add to previou s draw Performed By: #### 1 0070, 88836, 02759 ####[facility] [place] [address], [facility] Potassium molar conc 4.3 mmol/L Normal 3.5-5.1 [facility] Comment on above: Order Comment: No: Do not add to previou s draw Performed By: #### 1 0070, 96084, 29448 ####[facility] [place] [address], [facility] Sodium 136 mmol/L Normal 136-145 [facility] Comment on above: Order Comment: No: Do not add to previou s draw Performed By: #### 1 0070, 63101, 30460 ####[facility] [place] [address], [facility] Urea nitrogen 24 mg/dL Normal 7-25 [facility] Comment on above: Order Comment: No: Do not add to previou s draw Performed By: #### 1 0070, 88286, 67003 ####[facility] CBC COMPLETE BLOOD COUNTon 0 05-14-2017 Erythrocyte distribution width Auto Ratio (RBC) 14.9 % Normal 11.5-16.9 [facility] Comment on above: Order Comment: No: Do not add to previou s draw Performed By: #### 5 0608 ####[facility] Erythrocytes (RBC) 4.51 mill/mm3 Normal 4.30-5.90 [facility] Comment on above: Order Comment: No: Do not add to previou s draw Performed By: #### 5 0608 ####[address] Hematocrit (HCT) 39.1 % Normal 39.0-55.0 [facility] Comment on above: Order Comment: No: Do not add to previou s draw Performed By: #### 5 0608 ####[facility] Hemoglobin mass conc (Bld) 12.6 g/dL Low 13.9-16.3 [facility] Comment on above: Order Comment: No: Do not add to previou s draw Performed By: #### 5 0608 ####[facility] MCH 28.0 pg Normal 24.0-32.0 [facility] Comment on above: Order Comment: No: Do not add to previou s draw Performed By: #### 5 0608 ####[facility] MCHC mass conc (RBC) 32.3 g/dL Normal 32.0-36.0 [facility] Comment on above: Order Comment: No: Do not add to previou s draw Performed By: #### 5 0608 ####[facility] [place] [address], [facility] MCV 86.9 fL Normal 80.0-100.0 [facility] Comment on above: Order Comment: No: Do not add to previou s draw Performed By: #### 5 0608 ####[facility] [place] [address], [facility] PLAT CNT 210 Thou/mm3 Normal 100-400 [facility] Comment on above: Order Comment: No: Do not add to previou s draw Performed By: #### 5 0608 ####[facility] [place] [address], [facility] WBC (Leukocytes) 6.3 Thou/mm3 Normal 4.0-10.0 [facility] Comment on above: Order Comment: No: Do not add to previou s draw Performed By: #### 5 0608 ####[facility] MAGNESIUM BLOODon 05-14-2017 Magnesium 2.1 mg/dL Normal 1.9-2.7 [facility] Comment on above: Order Comment: No: Do not add to previou s draw Performed By: #### 1 0070, 77660, 19099 ####[facility] [place] [address], [facility] PHOSPHORUS BLOODon 7 Phosphate 2.9 mg/dL Normal 2.5-5.0 [facility] Comment on above: Order Comment: No: Do not add to previou s draw Performed By: #### 1 0070, 22205, 84419 ####[facility] [place] [address], [facility] PROTHROMBIN TIMEon 7 INR Coag RelTime (PPP) 1.52 {INR} High 0.91-1.16 [facility] Comment on above: Order Comment: No: Do not add to previou s draw Result Comment: [facility] P RECOMMENDED INR FOR WARFARIN THERAPY CONDITION INRPROPHYLAXIS OF VENOUS THROMBOSIS 2-3(HIGH-RISK SURGERY)TREATMENT OF VENOUS THROMBOSIS 2-3TREATMENT OF PULMONARY EMBOLISM 2-3PREVENTION OF SYSTEMIC EMBOLISM: 2-3 ACUTE MYOCARDIAL INFARCTION TISSUE HEART VALVES VALVULAR HEART DISEASE ATRIAL FIBRILLATION RECURRENT SYSTEMIC EMBOLISMMECHANICAL HEART VALVE 2.5-3.5 FROM: ORAL ANTICOAGULANTS. MECHANISM OF ACTION, CLINICALEFFECTIVENESS, AND OPTIMAL THERAPEUTIC RANGE. [id number]. Performed By: #### [id number] ####[facility] [facility] [place] [address], [facility] Prothrombin time (PT) Coag time (PPP) 18.5 s High 12.3-14.8 [facility] Comment on above: Order Comment: No: Do not add to previou s draw Result Comment: ALL RESULTS MUST BE INTERPRETED WITH RESPECT TO BLOOD DRAWING ARTIFACTOR DILUTION ERROR OF ANTICOAGULANT AT THE TIME OF SAMPLING. Performed By: #### [id number] ####[facility] [facility] [place] [address], [facility] INR Coag RelTime (PPP) 1.58 {INR} High 0.91-1.16 [facility] Comment on above: Order Comment: if not already doneNo: Do not add to previous draw Result Comment: [facility] RECOMMENDED INR FOR WARFARIN THERAPY CONDITION INRPROPHYLAXIS OF VENOUS THROMBOSIS 2-3(HIGH-RISK SURGERY)TREATMENT OF VENOUS THROMBOSIS 2-3TREATMENT OF PULMONARY EMBOLISM 2-3PREVENTION OF SYSTEMIC EMBOLISM: 2-3 ACUTE MYOCARDIAL INFARCTION TISSUE HEART VALVES VALVULAR HEART DISEASE ATRIAL FIBRILLATION RECURRENT SYSTEMIC EMBOLISMMECHANICAL HEART VALVE 2.5-3.5 FROM: ORAL ANTICOAGULANTS. MECHANISM OF ACTION, CLINICALEFFECTIVENESS, AND OPTIMAL THERAPEUTIC RANGE. [id number]. Performed By: #### 5 [id number], [id number] ####[facility] Prothrombin time (PT) Coag time (PPP) 19.1 s High 12.3-14.8 [facility] Comment on above: Order Comment: if not already doneNo: Do not add to previous draw Result Comment: ALL RESULTS MUST BE INTERPRETED WITH RESPECT TO BLOOD DRAWING ARTIFACTOR DILUTION ERROR OF ANTICOAGULANT AT THE TIME OF SAMPLING. Performed By: #### 5 [id number], [id number] ####[facility] [facility].[address] Encounters Encounter Date Encounter Type Care Provider Facility Start: 02-19-2024 End: 02-19-2024 ambulatory EDUARD MARCELO [facility] Start: 12-23-2023 End: 12-23-2023 ambulatory [facility] Start: 09-29-2023 End: 09-29-2023 ambulatory [facility] Start: 08-24-2023 End: 08-24-2023 ambulatory [facility] Start: 04-01-2023 End: 04-01-2023 ambulatory [facility] Start: 01-05-2023 End: 02-04-2023 ambulatory GONSALEZ H FAWWAD Facility:[facility] Start: 12-08-2022 End: 01-02-2023 ambulatory GONSALEZ H FAWWAD Facility:[facility] Start: 11-05-2022 End: 12-05-2022 ambulatory GONSALEZ H FAWWAD Facility:[facility] Start: 10-08-2022 End: 11-05-2022 ambulatory GONSALEZ H FAWWAD Facility:[facility] Start: 09-08-2022 End: 10-08-2022 ambulatory GONSALEZ H FAWWAD Facility:[facility] Start: 08-26-2022 End: 08-27-2022 ambulatory CUCA MEJIA Facility:[facility] Start: 08-26-2022 End: 08-26-2022 Patient encounter procedure CUCA MEJIA [facility] Start: 08-25-2022 End: 08-26-[address] CHARLIE STARK . Facility:[facility] Start: 08-07-2022 End: 09-07-2022 ambulatory GONSALEZ H FAWWAD Facility:[facility] Start: 07-08-2022 End: 08-06-2022 ambulatory GONSALEZ H FAWWAD Facility:[facility] Start: 07-01-2022 End: 07-01-2022 ambulatory REGGIE MATTHEW Facility:[facility] Start: 06-08-2022 End: 07-07-2022 ambulatory GONSALEZ H FAWWAD Facility:[facility] Start: 05-08-2022 End: 06-07-2022 ambulatory GONSALEZ H FAWWAD Facility:[facility] Start: 05-06-2022 End: 05-07-2022 ambulatory REGGIE MATTHEW Facility:[facility] Start: 04-16-2022 End: 04-17-2022 ambulatory REGGIE MATTHEW Facility:[facility] Start: 04-07-2022 End: 05-07-2022 ambulatory GONSALEZ H FAWWAD Facility:[facility] Start: 03-07-2022 End: 04-04-2022 ambulatory GONSALEZ H FAWWAD Facility:[facility] Start: 09-03-2021 End: 09-04-2021 ambulatory Charan HARRELL Facility:[facility] Start: 06-10-2017 End: 06-12-2017 Ambulatory TIGIST HUANG Facility:[facility] Start: 06-04-2017 End: 06-13-2017 Ambulatory PROVIDER UNKNOWN Facility:[facility] Start: 06-02-2017 End: 06-03-2017 Ambulatory DEFAULT PHYSICIAN Facility:[facility] Start: 05-14-2017 End: 05-16-2017 Evaluation and management of inpatient DORCAS CHIN Facility:[facility] Procedures Date Procedure Procedure Detail Performing Clinician Start: 08-25-2022 PSA screening SHAIKH MARTY MEI Comment on above: Performed By: #### P SAD #### [facility] [address] [address] [address] Wili Cardona Start: 05-15-2017 REVISION OF CARDIAC LEAD IN HEART, PERCUTANEOUS APPROACH DORCAS CHIN Start: 05-14-2017 INSERT PACE. DUAL CH AM IN CHEST SUBCU/FASCIA, OPEN ARIANA KARIM Start: 05-14-2017 INSERTION OF PACEMAK ER LEAD INTO R VENTRICLE, PERC APPROACH ARIANA [employer] Start: 05-14-2017 INSERTION OF PACEMAK ER LEAD INTO RIGHT ATRIUM, PERC APPROACH ARIANA [employer] Start: 03-12-2016 Transurethral prostatectomy CUCA MEJIA Start: 02-08-2016 Cystourethroscopy wi th dilation of urethral stricture CUCA MEJIA Start: 07-06-2013 Laser ablation of prostate CUCA MEJIA Amputation of finger , except thumb CUCA MEJIA Comment on above: Rt. hand pinky finge r Cataract surgery CUCA PE RRY Circumcision CUCA MEJIA Colonoscopy CUCA MEJIA Implantation of card iac pacemaker CUCA MEJIA Placement of stent i n cardiac conduit CUCA MEJIA Procedure on back CUCA P ERRY Procedure on knee CUCA P ERRY Tonsillectomy and adenoidectomy CUCA MEJIA Payers Date Payer Category Payer Medicare [id number] 1961 Medicare [id number] 1959 Private Health Insurance [id number] 1945 Unknown [id number] 2.16.8 [id number] 1943 Unknown [id number] 2.16.8 [id number] 1943 Unknown [id number] 2.16.84 [id number] 1943 Unknown [id number] 2.16.84 [id number] 1943 Unknown [id number] 2.16.84 0.1.040118.3.579.2.593 1943 Unknown [id number] 2.16.84 0.1.689690.3.579.2.593 1943 Unknown [id number] 2.16.84 0.1.125276.3.579.2.593 1943 Unknown [id number] 2.16.84 0.1.890559.3.579.2.593 1943 Unknown [id number] 2.16.84 0.1.001186.3.579.2.593 1943 Unknown [id number] 2.16.84 0.1.120543.3.579.2.593 1943 Unknown [id number] 2.16.84 0.1.812292.3.579.2.593 1943 Unknown [id number] 2.16.84 0.1.247648.3.579.2.593 1943 Unknown [id number] 2.16.84 0.1.156975.3.579.2.593 1943 Unknown [id number] 2.16.84 0.1.320434.3.579.2.593 1943 Unknown [id number] 2.16.84 0.1.065113.3.579.2.593 1943 Unknown [id number] 2.16.84 0.1.003712.3.579.2.593 1943 Unknown [id number] 2.16.84 [id number] Medicare [id number] Unknown Social History Date Type Detail Facility Start: 08-26-2022 Tobacco smoking status Ex-smoker (fi nding) [facility] Tobacco smoking status Never [facility] Sex Assigned At Male [facility] Functional Status Date Assessment Result Facility 08-26-2022 Functional Status N/A [facility] Progress note 02-19-2024 Note Date & Type Note Facility 02-19-2024 Note [facility] - [facility] Subjective Dylon Francis is a 78 y.o. year old male patient being seen for 6 mo follow up CAD, diastolic heart failure, and PAF. Last dose of Leqvio was done in Jul 2023. He denies chest pain, SOB, palpitations, lightheadedness/syncope, and bleeding on warfarin. No recent labs or imaging. His device was interrogated in December 2023. 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 (CMS/HCC) IVC thrombosis (CMS/HCC) BMI 40.0-44.9, adult (CMS/HCC) Nocturia Obesity Morbid obesity (CMS/HCC) Pain in both lower extremities Paroxysmal atrial fibrillation (CMS/HCC) Peripheral vascular disease (CMS/HCC) Poor urinary stream Weak urine stream Primary hypertension Stage 3 chronic kidney disease (CMS/HCC) Swelling of lower leg Type 2 diabetes mellitus without complication (CMS/HCC) Urge incontinence Urinary hesitancy Anemia Cardiac pacemaker in situ Daily use of moist tobacco Diabetes mellitus (CMS/HCC) History of deep venous thrombosis Osteoarthritis Pulmonary embolism (CMS/HCC) Sleep apnea Vitamin D deficiency Irritable bowel syndrome Persistent insomnia Pure hypercholesterolemia Family History Adopted: Yes Social History Tobacco Use Smoking status: Former Types: Cigarettes Smokeless tobacco: Never Substance Use Topics Alcohol use: Never HPI Mr Francis is seen in follow up. He is a 78 yo man with history of coronary artery disease and diastolic heart failure, Paroxysmal atrial fibrillation, status post cardiac pacemaker.. Additional medical history includes: Hypertension, diabetes, coronary artery disease, peripheral artery disease, chronic renal insufficiency Cr ~1.39 on 05/16/2017; Bilateral DVT November 2014 in the setting of bowel surgery (no longer on anticoagulation). He previously underwent prostate surgery and had a left left DVT after that and is now on coumadin. He is s/p IVC filter placement in 2006. He was evaluated at [facility] and then at [facility] for thrombosed IVC filter and was told that conservative management is the best option. Previously he was admitted to [facility] with high grade AV block and underwent placement of dual chamber pacemaker. He is intolerant to statins and is on Leqvio therapy. Today he reports that he has been doing reasonably well. He denies chest pain. He has no significant shortness of breath on exertion. He has no leg edema. No dizziness or lightheadedness. He uses a cane to assist with ambulation. His blood pressure has been elevated. Recent device check shows complete heart block underlying rhythm with 100% ventricular pacing. Review of Systems Respiratory: Positive for cough. Hematologic/Lymphatic: Bruises/bleeds easily. Musculoskeletal: Positive for arthritis, joint pain and muscle weakness. Neurological: Positive for focal weakness, numbness and weakness. All other systems reviewed and are negative. Objective Visit Vitals BP 144/86 (BP Location: Left arm, Patient Position: Sitting) Pulse 60 Ht 1.778 m (5' 10 ) Wt 98 kg (216 lb) SpO2 96% BMI 30.99 kg/m??? Smoking Status Former BSA 2.2 m??? Physical Exam Constitutional: Appearance: He is well-developed. He is obese. He is not ill-appearing. HENT: Head: Normocephalic and atraumatic. Nose: Nose normal. Eyes: General: No scleral icterus. Pupils: Pupils are equal, round, and reactive to light. Neck: Thyroid: No thyromegaly. Vascular: No JVD. Cardiovascular: Rate and Rhythm: Normal rate and regular rhythm. Pulses: Radial pulses are 2+ on the right side and 2+ on the left side. Heart sounds: Normal heart sounds. No murmur heard. No friction rub. No gallop. Pulmonary: Effort: Pulmonary effort is normal. No respiratory distress. Breath sounds: Normal breath sounds. No wheezing or rales. Chest: Chest wall: No tenderness. Abdominal: General: Bowel sounds are normal. There is no distension. Palpations: Abdomen is soft. Tenderness: There is no abdominal tenderness. Musculoskeletal: General: No swelling. Cervical back: Neck supple. Comments: Uses a cane to assist with ambulation Skin: General: Skin is warm and dry. Neurological: General: No focal deficit present. Mental Status: He is alert and oriented to person, place, and time. Psychiatric: Mood and Affect: Mood normal. Behavior: Behavior is cooperative. Judgment: Judgment normal (more content not included)... [facility] Progress note 08-24-2023 Note Date & Type Note Facility 08-24-2023 Note Patient here for 6 m o follow up CAD, diastolic heart failure, and hypertension. Due for routine device interrogation next month. Had routine labs in March 2023. Denies chest pain, SOB, palpitations, lightheadedness/syncope, and bleeding on warfarin. Review of Systems HENT: Positive for nosebleeds. Musculoskeletal: Positive for arthritis, joint pain and muscle weakness. Neurological: Positive for numbness. All other systems reviewed and are negative. [facility] Progress note 08-24-2023 Note Date & Type Note Facility 08-24-2023 Note PR Electrophysiology Consult Note Reason for visit: 6-month follow-up 08/24/23 He has been feeling well with no complaints of chest pain, shortness of breath, JAQUEZ, LE edema continues to get his Leqvio injection device check 03/2023 shows normal device function stable thresholds, RV paced 100% TTE 04/15/2023 shows normal LVEF, LA normal size, mild concentric LVH 10/2022 HPI: Dylon Francis is a 77 y.o. 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 He has not taken any of his medications yet today because he did not have to worry about going to the bathroom while at the office. He is currently getting Leqvio injection for cholesterol due to statin intolerance. When this was prescribed he was to be started on Zetia but patient states he has never taken Zetia. His most recent device check showed device was functioning well with normal thresholds and impedance. There were no concerns for arrhythmias. ---- Previous per Matthew RODRIGUEZ 04/15/2022: Mr. Francis presents to clinic for routine follow-up. 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 C/o frequent falls, states he doesn't alwasy watch where he's going or tries to do things too quickly and he loses his balance. He also frequently trips over the cat. He notes that he forgot to take his torsemide on Thursday and he gained 6 pounds in 1 day. Yesterday he was down about 1.5 pounds after he resumed his torsemide. He states he is watching his fluid intake and limiting sodium. Denies complaints of chest pain, dyspnea at rest or exertion, orthopnea, PND, dizziness/lightheadedness, palpitations, syncope. Prior testing: Blood testing 10/11/2020: Hemoglobin 13.5, platelets 191, potassium 4.2, BUN 28, creatinine 1.48, GFR 49, LFTs within normal limits, at high-sensitivity troponin normal, INR 1.77. Device interrogation 09/26/20: normal functioning device Echocardiogram 05/14/2017: Global left ventricular systolic function is normal (Visually estimated EF 55%). Concentric left ventricular hypertrophy. Regional wall motion abnormalities. The right ventricle is mildly enlarged. The left atrium is normal in size. Mild aortic dilatation . No pericardial effusion. 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 CTA abdomen 11/30/2013: no significant renal artery stenosis; Echocardiogram 02/14/2015 at [facility]: preserved LV systolic function, moderate diastolic dysfunction, and normal right sided pressures. cardiac catheterization on 06/11/2017 1. Severe single-vessel coronary artery disease. 2. 90% stenosis in the proximal ramus vessel reduced to 0% by balloon angioplasty and Promus drug-eluting stenting. 3. 40% stenosis in the mid ramus. 4. 20% in-stent restenosis in the mid LAD. 5. 20% proximal and mid RCA stenosis and patent PLV stent. 6. Small nondominant circumflex with free of disease. Device check 06/18/2018 showed underlying CHB with normal function of the pacemaker. Pacemaker check 03/26/2020: Episodes of atrial fibrillation noted. PMH: Past Medical History: Diagnosis Date CAD (coronary artery disease) CKD (chronic kidney disease), stage III (CMS/HCC) Diabetes (CMS/HCC) Diastolic heart failure (CMS/HCC) History of (more content not included)... [facility] Discharge instructions 08-26-2022 Note Date & Type Note Facility 08-26-2022 Hospital Discharge instructions Patient Education 08/26/2022 13:11:27 Benign Prostatic Hyperplasia Benign Prostatic Hyperplasia Benign prostatic hyperplasia (BPH) is an enlarged prostate gland that is caused by the normal aging process and not by cancer. The prostate is a walnut-sized gland that is involved in the production of semen. It is located in front of the rectum and below the bladder. The bladder stores urine and the urethra is the tube that carries the urine out of the body. The prostate may get bigger as a man gets older. An enlarged prostate can press on the urethra. This can make it harder to pass urine. The build-up of urine in the bladder can cause infection. Back pressure and infection may progress to bladder damage and kidney (renal) failure. What are the causes? This condition is part of a normal aging process. However, not all men develop problems from this condition. If the prostate enlarges away from the urethra, urine flow will not be blocked. If it enlarges toward the urethra and compresses it, there will be problems passing urine. What increases the risk? This condition is more likely to develop in men over the age of 50 years. What are the signs or symptoms? Symptoms of this condition include: Getting up often during the night to urinate. Needing to urinate frequently during the day. Difficulty starting urine flow. Decrease in size and strength of your urine stream. Leaking (dribbling) after urinating. Inability to pass urine. This needs immediate treatment. Inability to completely empty your bladder. Pain when you pass urine. This is more common if there is also an infection. Urinary tract infection (UTI). How is this diagnosed? This condition is diagnosed based on your medical history, a physical exam, and your symptoms. Tests will also be done, such as: A post-void bladder scan. This measures any amount of urine that may remain in your bladder after you finish urinating. A digital rectal exam. In a rectal exam, your health care provider checks your prostate by putting a lubricated, gloved finger into your rectum to feel the back of your prostate gland. This exam detects the size of your gland and any abnormal lumps or growths. An exam of your urine (urinalysis). A prostate specific antigen (PSA) screening. This is a blood test used to screen for prostate cancer. An ultrasound. This test uses sound waves to electronically produce a picture of your prostate gland. Your health care provider may refer you to a specialist in kidney and prostate diseases (urologist). How is this treated? Once symptoms begin, your health care provider will monitor your condition (active surveillance or watchful waiting). Treatment for this condition will depend on the severity of your condition. Treatment may include: Observation and yearly exams. This may be the only treatment needed if your condition and symptoms are mild. Medicines to relieve your symptoms, including: ?Medicines to shrink the prostate. ?Medicines to relax the muscle of the prostate. Surgery in severe cases. Surgery may include: ?Prostatectomy. In this procedure, the prostate tissue is removed completely through an open incision or with a laparoscope or robotics. ?Transurethral resection of the prostate (TURP). In this procedure, a tool is inserted through the opening at the tip of the penis (urethra). It is used to cut away tissue of the inner core of the prostate. The pieces are removed through the same opening of the penis. This removes the blockage. ?Transurethral incision (TUIP). In this procedure, small cuts are made in the prostate. This lessens the prostate's pressure on the urethra. ?Transurethral microwave thermotherapy (TUMT). This procedure uses microwaves to create heat. The heat destroys and removes a small amount of prostate tissue. ?Transurethral needle ablation (TUNA). This procedure uses radio frequencies to destroy and remove a small amount of prostate tissue. ?Interstitial laser coagulation (ILC). This procedure uses a laser to destroy and remove a small amount of prostate tissue. ?Transurethral electrovaporization (TUVP). This procedure uses electrodes to destroy and remove a small amount of prostate tissue. ?Prostatic urethral lift. This procedure inserts an implant to push the lobes of the prostate away from the urethra. Follow these instructions at home: Take dujz-trq-mcucuir and prescription medicines only as told by your health care provider. Monitor your symptoms for any changes. Contact your health care provider with any changes. Avoid drinking large amounts of liquid before going to bed or out in public. Avoid or reduce how much caffeine or alcohol you drink. Give yourself time when you urinate. Keep all follow-up visits as told by your health care provider. This is important. Contact a health care provider if: You have unexplained back pain. Your symptoms do not get better with treatment. You develop side effects from the medicine you are taking. Your urine becomes very dark or has a bad smell. Your lower abdomen becomes distended and you have trouble passing your urine. Get help right away if: You have a fever or chills. You suddenly cannot urinate. You feel lightheaded, or very dizzy, or you faint. There are large amounts of blood or clots in the urine. Your urinary problems become hard to manage. You develop moderate to severe low back or flank pain. The flank is the side of your body between the ribs and the hip. These symptoms may represent a serious problem that is an emergency. Do not wait to see if the symptoms will go away. Get medical help right away. Call your local emergency services (911 in the [place] Do not drive yourself to the hospital. Summary Benign prostatic hyperplasia (BPH) is an enlarged prostate that is caused by the normal aging process and not by cancer. An enlarged prostate can press on the urethra. This can make it hard to pass urine. This condition is part of a normal aging process and is more likely to develop in men over the age of 50 years. Get help right away if you suddenly cannot urinate. This information is not intended to replace advice given to you by your health care provider. Make sure you discuss any questions you have with your health care provider. Document Released: 08/24/2006 Document Revised: 07/19/2019 Document Reviewed: 09/28/2017 [employer] [place] Patient Education 2020 [email or web address] Follow Up Care 09/03/2021 12:26:25 With:CUCA MEJIA PA-C, URL Address: [address] [place] [place] [id number] When: Unknown Comments:PRN [facility] Evaluation + Plan note Note Date & Type Note Facility Evaluation + Plan note No data available for this section [facility] Progress note Note Date & Type Note Facility Progress note No data available for this section [facility] Summary Purpose Family History No Family History Records FoundNo Family History Records FoundNo Family History Records FoundNo Family History Records Found Advance Directives No Advanced Directives Records FoundNo Advanced Directives Records FoundNo Advanced Directives Records FoundNo Advanced Directives Records Found Additional Source Comments (unrecognized sect ion and content) No Status Records FoundNo Status Records FoundNo Status Records FoundNo Status Records Found INFORMATION SOURCE (unrecogn ized section and content) DATE CREATED AUTHOR 03/02/2018 [facility] DATE CREATED AUTHOR AUTHOR'S ORGANIZ ATION 08/29/[address] [facility] DATE CREATED AUTHOR AUTHOR'S ORGANIZ ATION 02/13/2023 [facility] DATE CREATED AUTHOR AUTHOR'S ORGANIZ ATION 03/28/2024 [facility] Patient Care team informatio n (unrecognized section and content) Personnel Name: Charlie Stark MD Address: Address: [address] [place] [id number] FOR RECORDS PERTAINING TO PATIENTS WHO ARE OR HAVE BEEN ENROLLED IN A CHEMICAL DEPENDENCY/SUBSTANCEABUSE PROGRAM, SOME INFORMATION MAY BE OMITTED. This clinical summary was aggregated from multiple sources. Caution should be exercised in using it in the provision of clinical care. This summary normalizes information from multiple sources, and as a consequence, information in this document may materially change the coding, format and clinical context of patient data. In addition, data may be omitted in some cases. CLINICAL DECISIONS SHOULD BE BASED ON THE PRIMARY CLINICAL RECORDS. [facility] [employer] [facility]. provides no warranty or guarantee of the accuracy or completeness of information in this document.
[2024-04-01] MEDS: REGADENOSON 0.4 MG/5 ML SYRINGE IV (09:21)
--- NOTE | 2024-04-01 09:24 | PC.NURSE ---
Nursing Note Cardiac Stress Test Reviewed: Medication, allergies and patient history reviewed. Stress Test: [x ] Patient tolerated stress test well. [ ] Patient unable to tolerate walking on treadmill. Switched to Lexiscan stress test. [x ] No chest pain noted per patient [ ] Chest pain that resolved prior to leaving stress lab. [x ] No dyspnea noted. [ ] Dyspnea that resolved prior to leaving stress lab. [x ] Patient left stress lab asymptomatic and hemodynamically stable. [ ] Patient taken to the Emergency Room due to non-resolving symptoms following stress test. [ ] Patient achieved target heart rate. [ ] Patient unable to achieve target heart rate. [ ] Aminophylline administered as reversal agent to Lexiscan (Regadenoson). [ ] Nitro administered. Nursing Comments: Patient complained of some nausea after the administration of lexiscan which resolved prior to leaving the room.
== END 2024-04-01 07:24 | disposition home or self-care (01) ==
LOC: NM 07:23
PROVIDERS: PCP Family Medicine; Visit Provider Internal Medicine Interventional Cardiology
DX: I50.23 Acute on chronic systolic (congestive) heart failure (principal)
CPT/HCPCS: 78452; 93017; A9500; J2785

== ENCOUNTER 2024-04-07 00:25 | Outpatient (RCR) | payer MEDICARE, OTHER, SELFPAY | END 2024-05-06 10:20 | disposition home or self-care (01) | LOC: MM 00:25 | PROVIDERS: PCP Family Medicine; Visit Provider Internal Medicine | DX: Z51.81 Encounter for therapeutic drug level monitoring (principal); Z79.01 Long term (current) use of anticoagulants; I82.409 Acute embolism and thrombosis of unspecified deep veins of unspecified lower extremity ==

== ENCOUNTER 2024-04-08 07:19 | Outpatient (OUT) | payer MEDICARE, OTHER, SELFPAY ==
--- OUTSIDE RECORDS SUMMARY | 2024-04-08 07:23 | XMS_ITS | CCD ---
Author Organization [facility] Care Team Providers Care Facilities Plant Engineer Name Role Phone DORCAS CHIN AM Unavailable Unavailable Arthur, Rashad Unavailable Unavailable HOY, CHARLIE Unavailable Unavailable MARKER, ODESSA J Unavailable Unavailable LA Unavailable Unavailable DORCAS CHIN AM Unavailable Unavailable LA Unavailable Unavailable KARIM, ARIANA Unavailable Unavailable PHYSICIAN, DEFAULT Unavailable Unavailable PHYSICIAN, DEFAULT Unavailable Unavailable HOY, CHARLIE Unavailable Unavailable UNKNOWN, PROVIDER Unavailable Unavailable UNKNOWN, PROVIDER Unavailable Unavailable HOY, CHARLIE Unavailable Unavailable HOY, CHARLIE Unavailable Unavailable HUANG, TIGIST Unavailable Unavailable UNKNOWN, PROVIDER Unavailable Unavailable HOY, CHARLIE Unavailable Unavailable HOY, CHARLIE Unavailable Unavailable Lincoln Charlie Primary Care Physician CUCA MEJIA Attending Unavailable Charan HARRELL Attending [...] Care Unavailable FAWWAD, GONSALEZ H Attending Unavailable HOY ., DR GUERRA [...] (3 sources) black walnut pollen extract; Translations: [ZAGCQCO-FUW-KNA REDUCTASE INHIBITORS] Drug Allergy 2 [facility] (2 sources) celecoxib Drug Allergy 2 [facility] (2 sources) HMG-CoA reductase inhibitor; Translations: [statins] Drug allergy Unknown (qualifier value) 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 Patient's made aware. Order faxed to [facility]. [facility] Office Visiton 02-19-2024 Follow-up visit [id number] Panfilo Francis 1945 M Date Provider Department Center 02/19/2024 [facility]-EDUARD MARCELO CALLIE Flaherty [facility] Family History Adopted: Yes Level of Service:95154 LA OFFICE/OUTPATIENT ESTABLISHED MOD MDM 30 MIN [facility] Office Visiton 08-24-2023 Follow-up visit [id number] Panfilo Francis 1945 M Date Provider Department Center 08/24/2023 Estella-JUDSON HUI CALLIE Flaherty [facility] Family History Adopted: Yes Level of Service:82902 LA OFFICE/OUTPATIENT ESTABLISHED MOD MDM 30 MIN [facility] Ambulatory Visit Summaryon 1 10-27-2021 Ambulatory Visit Summary DYLON FRANCIS :1945 Visit Date:08/26/2022 Ambulatory Visit Instructions Your Diagnosis BPH with urinary obstruction Nocturia Frequent urination Other obstructive and reflux uropathy Tests Performed Urnls Dip Stick Auto w/o Microscopy POC 69531 Your Care Team Attending Physician - CUCA [...] PRN Where: [address] [place] [place] [address] [phone] Medications What How Much When Instructions Unchanged [...] Urnls Dip Stick Auto w/o Microscopy POC 90667 (08/26/2022) Bilirubin Urine Dipstick - Negative Blood Urine Dipstick - Negative Glucose Urine Dipstick - Negative Ketones Urine Dipstick - Negative Leukocytes Urine Dipstick - Trace Nitrite Urine Dipstick - Negative Protein Urine Dipstick - Negative Specific [place] Urine Dipstick - 1.015 Urine Appearance Urine Dipstick - Clear Urine Color Urine Dipstick - Yellow Urobilinogen Urine Dipstick - Normal (more content not included)... Normal [facility] Lab Reportson 08-26-2022 Lab Reports [id number] Normal [facility] Patient Educationon 08-26-20 22 Patient Education [...] Follow these instructions at home: ? Take fxue-lyy-kdaqegi and prescription medicines only as told by [...] You d (more content not included)... Normal [facility] Urology Office/Clinic Noteon 08-26-2022 Urology Office/Clinic [...] When Contact Information CUCA MEJIA PA-C, URL [address] [place] [address] [phone] Additional Instructions: PRN Patient Education Benign Prostatic Hyperplasia Madalyn [place], personally scribed for Cuca Mejia on [...] Protein Urine Dipstick: Negative (08/26/22 12:57:00) Specific [place] Urine Dipstick: 1.015 (08/26/22 12:57:00) Urine Appearance Urine Dipstick: Clear (08/26/22 12:57:00) Urine Color Urine Dipstick: Yellow (08/26/22 12:57:00) Urobilinogen Urine Dipstick: Normal 0.2-1 E (more content not included)... Normal [facility] Comment on above: Result Comment: Electronically Signed By : CUCA MEJIA PA-C\.br\Date and Time Signed: 08/26/22 14:29 EST\.br\Electronically Co-Signed By: Madalyn Pedroza\.br\Date and Time Co-Signed: 08/26/22 13:31 EST PROF CHEM 8 (BAS METB)on Anion gap [Moles/Vol] 5.7 mmol/L Normal [facility] Comment on above: Performed By: #### BMP #### [facility] [address] [address] [address] Wili Cardona Calcium [Mass/Vol] 8.5 mg/dL Normal 8.5-10.1 [facility] Comment on above: Performed By: #### BMP #### [facility] [address] [address] [address] Wili Cardona Chloride [Moles/Vol] 100 mmol/L Normal 98-107 [facility] Comment on above: Performed By: #### BMP #### [facility] [address] [address] [address] Wili Cardona CO2 [Moles/Vol] 36.1 mmol/L Critically high 21.0-32.0 [facility] Comment on above: Performed By: #### BMP #### [facility] [address] [address] [address] Wili Cardona Creatinine [Mass/Vol] 1.29 mg/dL Normal 0.70-1.30 [facility] Comment on above: Performed By: #### BMP #### [facility] [address] [address] [address] Wili Cardona EGFR-AF JORDANIAN >60 Normal >=60 [facility] Comment on above: Performed By: #### BMP #### [facility] [address] [place] [address] Dr. Wili Cardona EGFR-NON AF JORDANIAN 54 mL/min/1.73m2 Critically low >=60 [facility] Comment on above: Performed By: #### BMP #### [facility] [address] [place] [address] Dr. Wili Cardona Glucose [Mass/Vol] 131 mg/dL Critically high 74-106 [facility] Comment on above: Performed By: #### BMP #### [facility] [address] [place] [address] Dr. Wili Cardona Potassium [Moles/Vol] 3.8 mmol/L Normal 3.5-5.1 [facility] Comment on above: Performed By: #### BMP #### [facility] [address] [place] [address] Dr. Wili Cardona Sodium [Moles/Vol] 138 mmol/L Normal 136-145 [facility] Comment on above: Performed By: #### BMP #### [facility] [address] [place] [address] Dr. Wili Cardona Urea nitrogen [Mass/Vol] 23.0 mg/dL Critically high 7.0-18.0 [facility] Comment on above: Performed By: #### BMP #### [facility] [address] [place] [address] Dr. Wili Cardona Urea nitrogen/Creatin ine [Mass ratio] 17.8 mg/mg Normal [facility] Comment on above: Performed By: #### BMP #### [facility] [address] [place] [address] Dr. Wili Cardona CBC AUTO DIFFon 08-10-2022 BASO # 0.0 103/ul Normal 0.0-0.1 [facility] Comment on above: Performed By: #### CBC #### [facility] [address] [place] [address] Dr. Wili Cardona Basophils/100 WBC (Bld) 0.3 % Normal 0.2-2.0 [facility] Comment on above: Performed By: #### CBC #### [facility] [address] [address] [address] Wili Cardona EO # 0.1 103/ul Normal 0.0-0.7 [facility] Comment on above: Performed By: #### CBC #### [facility] [address] [place] [address] Dr. Wlii Cardona Eosinophils/100 WBC (Bld) 1.5 % Normal 0.9-7.0 [facility] Comment on above: Performed By: #### CBC #### [facility] [address] [place] [address] Dr. Wili Cardona Erythrocyte distribution width (RBC) [Ratio] 13.4 % Normal 11.0-15.0 [facility] Comment on above: Performed By: #### CBC #### [facility] [address] [place] [address] Dr. Wili Cardona Hematocrit (Bld) [Volume fraction] 41.1 % Critically low 42.0-54.0 [facility] Comment on above: Performed By: #### CBC #### [facility] [address] [place] [address] Dr. Wili Cardona Hemoglobin (Bld) [Mass/Vol] 13.3 g/dL Critically low 14.0-18.0 [facility] Comment on above: Performed By: #### CBC #### [facility] [address] [place] [address] Dr. Wili Cardona IG # 0.02 10e3/ul Normal 0.00-0.03 [facility] Comment on above: Performed By: #### CBC #### [facility] [address] [place] [address] Dr. Wili Cardona IG % 0.3 % Normal 0.0-0.5 [facility] Comment on above: Performed By: #### CBC #### [facility] [address] [place] [address] Dr. Wili Cardona LYMPH # 1.5 103/ul Normal 1.2-3.8 [facility] Comment on above: Performed By: #### CBC #### [facility] [address] [place] [address] Dr. Wili Cardona Lymphocytes/100 WBC (Bld) 22.7 % Normal 20.5-60.0 [facility] Comment on above: Performed By: #### CBC #### [facility] [address] [place] [address] Dr. Wili Cardona MANUAL DIFF REQ NO Normal [facility] Comment on above: Performed By: #### CBC #### [facility] [address] [place] [address] Dr. Wili Cardona MCH (RBC) [Entitic mass] 30.0 pg Normal 25.9-34.0 [facility] Comment on above: Performed By: #### CBC #### [facility] [address] [place] [address] Dr. Wili Cardona MCHC (RBC) [Mass/Vol] 32.4 g/dL Normal 29.9-35.2 [facility] Comment on above: Performed By: #### CBC #### [facility] [address] [place] [address] Dr. Wili Cardona MCV (RBC) [Entitic vol] 92.6 fL Normal 80.0-94.0 [facility] Comment on above: Performed By: #### CBC #### [facility] [address] [place] [address] Dr. Wili Cardona MONO # 0.5 103/ul Normal 0.3-0.8 [facility] Comment on above: Performed By: #### CBC #### [facility] [address] [place] [address] Dr. Wili Cardona Monocytes/100 WBC (Bld) 7.4 % Normal 1.7-12.0 [facility] Comment on above: Performed By: #### CBC #### [facility] [address] [address] [address] Wili Cardona NEUT # 4.5 103/ul Normal 1.4-6.5 [facility] Comment on above: Performed By: #### CBC #### [facility] [address] [address] [address] Wili Cardona Neutrophils/100 WBC (Bld) 67.8 % Normal 43.0-75.0 [facility] Comment on above: Performed By: #### CBC #### [facility] [address] [place] [address] Dr. Wili Cardona Platelet mean volume (Bld) [Entitic vol] 9.5 fL Normal 9.5-13.5 [facility] Comment on above: Performed By: #### CBC #### [facility] [address] [place] [address] Dr. Wili Cardona PLT 151 103/ul Normal 150-450 [facility] Comment on above: Performed By: #### CBC #### [facility] [address] [place] [address] Dr. Wili Cardona RBC 4.44 106/ul Critically low 4.70-6.10 [facility] Comment on above: Performed By: #### CBC #### [facility] [address] [place] [address] Dr. Wili Cardona WBC 6.6 103/ul Normal 4.0-11.0 [facility] Comment on above: Performed By: #### CBC #### [facility] [address] [place] [address] Dr. Wili Cardona LIPID PROFILEon 04-16-2022 CHOL-HDL RATIO NORM SEE BELOW Normal [facility] Comment on above: Result Comment: 3.3 - 4.4 LOW RISK 4.4 - 7.1 AVERAGE RISK 7.1 - 11.0 MODERATE RISK >11.0 HIGH RISK Performed By: #### L IPID, CMP #### [facility] [address] [place] [address] Dr. Wili Cardona Cholesterol [Mass/Vol] 213 mg/dL Critically high <=200 [facility] Comment on above: Performed By: #### LIPID, CMP #### [facility] [address] [address] [address] Wili Cardona Cholesterol in HDL [Mass/Vol] 54 mg/dL Normal 40-60 [facility] Comment on above: Performed By: #### LIPID, CMP #### [facility] [address] [address] [address] Wili Cardona Cholesterol in LDL [Mass/Vol] 147.2 mg/dL Normal [facility] Comment on above: Performed By: #### LIPID, CMP #### [facility] [address] [address] [address] Wili Cardona Cholesterol.tota l/Cholesterol in HDL [Mass ratio] 3.9 {ratio} Normal [facility] Comment on above: Performed By: #### LIPID, CMP #### [facility] [address] [place] [address] Dr. Wili Cardona HDL NORMAL > or = 60 mg/dl - LO W CARDIOVASCULAR RISK <40 mg/dl - HIGH CARDIOVASCULAR RISK Normal [facility] Comment on above: Performed By: #### LIPID, CMP #### [facility] [address] [place] [address] Dr. Wili Cardona LDL CALC NORMAL SEE BELOW Normal [facility] Comment on above: Result Comment: <100 mg/dl OPTIMAL 100 - 129 mg/dl NEAR OR ABOVE OPTIMAL 130 - 159 mg/dl BORDERLINE HIGH 160 - 189 mg/dl HIGH >190 mg/dl VERY HIGH Performed By: #### L IPID, CMP #### [facility] [address] [address] [address] Wili Cardona Triglyceride [Mass/Vol] 59 mg/dL Normal <=150 [facility] Comment on above: Performed By: #### LIPID, CMP #### [facility] [address] [place] [address] Dr. Wili Cardona VLDL CALC 11.8 mg/dL Normal [facility] Comment on above: Performed By: #### LIPID, CMP #### [facility] [address] [address] [address] Wili Cardona PROF 14(COMP METB)on 022 Albumin [Mass/Vol] 3.2 g/dL Critically low 3.4-5.0 [facility] Comment on above: Performed By: #### LIPID, CMP #### [facility] [address] [address] [address] Wili Cardona Albumin/Globulin [Mass ratio] 0.9 {ratio} Normal [facility] Comment on above: Performed By: #### LIPID, CMP #### [facility] [address] [place] [address] Dr. Wili Cardona ALP [Catalytic activity/Vol] 83 U/L Normal 46-116 [facility] Comment on above: Performed By: #### LIPID, CMP #### [facility] [address] [place] [address] Dr. Wili Cardona ALT [Catalytic activity/Vol] 17 U/L Normal 16-63 [facility] Comment on above: Performed By: #### LIPID, CMP #### [facility] [address] [place] [address] Dr. Wili Cardona Anion gap [Moles/Vol] 10.6 mmol/L Normal [facility] Comment on above: Performed By: #### LIPID, CMP #### [facility] [address] [place] [address] Dr. Wili Cardona AST [Catalytic activity/Vol] 16 U/L Normal 15-37 [facility] Comment on above: Performed By: #### LIPID, CMP #### [facility] [address] [place] [address] Dr. Wili Cardona Bilirubin [Mass/Vol] 0.6 mg/dL Normal 0.2-1.0 [facility] Comment on above: Performed By: #### LIPID, CMP #### [facility] [address] [place] [address] Dr. Wili Cardona Calcium [Mass/Vol] 8.9 mg/dL Normal 8.5-10.1 [facility] Comment on above: Performed By: #### LIPID, CMP #### [facility] [address] [place] [address] Dr. Wili Cardona Chloride [Moles/Vol] 102 mmol/L Normal 98-107 [facility] Comment on above: Performed By: #### LIPID, CMP #### [facility] [address] [place] [address] Dr. Wili Cardona CO2 [Moles/Vol] 32.7 mmol/L Critically high 21.0-32.0 [facility] Comment on above: Performed By: #### LIPID, CMP #### [facility] [address] [place] [address] Dr. Wili Cardona Creatinine [Mass/Vol] 1.13 mg/dL Normal 0.70-1.30 [facility] Comment on above: Performed By: #### LIPID, CMP #### [facility] [address] [place] [address] Dr. Wili Cardona EGFR-AF JORDANIAN >60 Normal >=60 [facility] Comment on above: Performed By: #### LIPID, CMP #### [facility] [address] [place] [address] Dr. Wili Cardona EGFR-NON AF JORDANIAN >60 Normal >=60 [facility] Comment on above: Performed By: #### LIPID, CMP #### [facility] [address] [place] [address] Dr. Wili Cardona Globulin (S) [Mass/Vol] 3.4 g/dL Normal [facility] Comment on above: Performed By: #### LIPID, CMP #### [facility] [address] [place] [address] Dr. Wili Cardona Glucose [Mass/Vol] 85 mg/dL Normal 74-106 [facility] Comment on above: Performed By: #### LIPID, CMP #### [facility] [address] [place] [address] Dr. Wili Cardona Potassium [Moles/Vol] 5.3 mmol/L Critically high 3.5-5.1 [facility] Comment on above: Performed By: #### LIPID, CMP #### [facility] [address] [place] [address] Dr. Wili Cardona Protein [Mass/Vol] 6.6 g/dL Normal 6.4-8.2 [facility] Comment on above: Performed By: #### LIPID, CMP #### [facility] [address] [address] [address] Wili Cardona Sodium [Moles/Vol] 140 mmol/L Normal 136-145 [facility] Comment on above: Performed By: #### LIPID, CMP #### [facility] [address] [address] [address] Wili Cardona Urea nitrogen [Mass/Vol] 21.0 mg/dL Critically high 7.0-18.0 [facility] Comment on above: Performed By: #### LIPID, CMP #### [facility] [address] [address] [address] Wili Cardona Urea nitrogen/Creatin ine [Mass ratio] 18.6 mg/mg Normal [facility] Comment on above: Performed By: #### LIPID, CMP #### [facility] [address] [place] [address] Dr. Wili Cardona Ambulatory Clinical Summaryo 09-03-2021 Ambulatory Clinical Summary {[id number]}CD:[id number] Normal [facility] Patient Educationon 09-03-20 Patient Education Urology [...] Follow these instructions at home: ? Take ycmg-pdq-nwpfozd and prescription medicines only as told by [...] You d (more content not included)... Normal [facility] Urology Office/Clinic Noteon 09-03-2021 Urology Office/Clinic [...] Urnls Dip Stick Auto w/o Microscopy POC 11934 2. Nocturia (R35.1: Nocturia) 1-2x intermittent Ordered: PSA Total Urnls Dip Stick Auto w/o Microscopy POC 09482 3. Urinary hesitancy (R39.11: Hesitancy of micturition) Pt states that early in the mornings he has a problem getting the stream started, but he has the urge. Ordered: PSA Total I have reviewed the previous health record information and history for this patient from Dr. Harrell Follow-up With When Contact Information Flaco Guzman MD, Jadon Norris, URO In 1 year 09/03/2022 [facility] [address], [place] [address]- Additional Instructions: PSA Patient Education Benign Prostatic [...] oral ta (more content not included)... Normal [facility] Comment on above: Result Comment: Electronically Signed By : Flaco Guzman MD, Jadon Norris\.br\Date and Time Signed: 09/03/21 12:42 EST\.br\Electronically Co-Signed By: Le Fernandes MA\.br\Date and Time Co-Signed: 09/03/21 12:23 EST BASIC METABOLIC PANELon 10-0 Calcium 9.0 mg/dL Normal 8.6-10.3 [facility] Comment on above: Order Comment: No: Do not add to previou s draw Performed By: #### 1 0070, 53977, 70723 ####[facility] [place] [address], [facility] Chloride 102 mmol/L Normal 98-107 [facility] Comment on above: Order Comment: No: Do not add to previou s draw Performed By: #### 1 0070, 38685, 52238 ####[facility] [place] [address], [facility] CO2 28 mmol/L Normal 21-31 [facility] Comment on above: Order Comment: No: Do not add to previou s draw Performed By: #### 1 0070, 06603, 72308 ####[facility] [place] [address], [facility] Creatinine 1.17 mg/dL Normal 0.70-1.30 [facility] Comment on above: Order Comment: No: Do not add to previou s draw Performed By: #### 1 0070, 83819, 10880 ####[facility] [place] [address], [facility] eGFR (black) mL/min/{1.73_m2} Normal >60 [facility] Comment on above: Order Comment: No: Do not add to previou s draw Result Comment: Calc ulation may not be valid for patients over 70 years Performed By: #### 1 0070, 07417, 49359 ####[facility] [place] [address], [facility] eGFR (non-black) mL/min/{1.73_m2} Normal >60 [facility] Comment on above: Order Comment: No: Do not add to previou s draw Result Comment: Calc ulation may not be valid for patients over 70 years Performed By: #### 1 0070, 61078, 18553 ####[facility] [place] [address], [facility] Glucose mass conc 87 mg/dL Normal 70-100 [facility] Comment on above: Order Comment: No: Do not add to previou s draw Performed By: #### 1 0070, 08800, 34771 ####[facility] [place] [address], [facility] Potassium molar conc 4.3 mmol/L Normal 3.5-5.1 [facility] Comment on above: Order Comment: No: Do not add to previou s draw Performed By: #### 1 0070, 28907, 21510 ####[facility] [place] [address], [facility] Sodium 136 mmol/L Normal 136-145 [facility] Comment on above: Order Comment: No: Do not add to previou s draw Performed By: #### 1 0070, 12890, 01951 ####[facility], [place] [address], [facility] Urea nitrogen 15 mg/dL Normal 7-25 [facility] Comment on above: Order Comment: No: Do not add to previou s draw Performed By: #### 1 0070, 93560, 59050 ####[facility] [place] [address], [facility] Cardiovascular Lab Reporton 06-12-2017 Cardiovascular Lab Report [facility] Patient Name: Panfilo Francise [facility] MR #: [id number] Physician: Eduard Kathleen M.D.Medicine Service Date: 06/11/2017Division of Birthdate: 4Cardiology Room #: 3AB [id number] CardiovascularEric Ville [address].[place], [place] [address]Kgtgl Fax Cardiovascular Laboratory ReportCARDIAC CATHETERIZATION REPORTINDICATION:Dylon Francis [...] Hesigned informed consent. 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 Eventually, we wereable to overcome the subcutaneous tissue and advance the 5-Syrian pinnaclesheath and secure it in place.Using the angled Glidewire, the wire was advanced across the previouslyplaced aortic stent graft intraluminally and this allowed tracking of5-Syrian diagnostic catheters. Bilateral selective coronary angiographywas then performed using a 5-Syrian JL4 and AR modified diagnosticcatheters. Angiography was performed in multiple views.Heparin was administered intravenously and therapeutic ACT confirmed duringthe procedure. A 5-Syrian XB3.5 guiding catheter was advanced and used toengage the left main coronary ostium. A Vidcasterwater wire was advanced intothe distal ramus vessel. [...] left femoralarteriotomy site was managed with a 6-Syrian Angio-Seal device with goodhemostasis. He tolerated the [...] by:Eduard Marcelo M.D. 06/13/2017 10:57 P Eduard Marcelo M.D.Date Dict: 06/11/2017/07:38 P/Eduard Marcelo M.D.Date Trans: 06/12/2017 04:56 P/Reji_JN:[id number]: Charlie Stark M.D. [place] [id number] [facility] [place] [facility] [address] Normal [facility] POC GLUCOSE LABon 06-12-2017 Glucose mass conc 82 mg/dL Normal 70-100 [facility] Comment on above: Performed By: #### 35241, [id number], [id number] # ###[place] [id number] Glucose mass conc 146 mg/dL High 70-100 [facility] Comment on above: Performed By: #### 45263, 22449, 28946 # ###[facility] BASIC METABOLIC PANELon 10-0 Calcium 8.5 mg/dL Low 8.6-10.3 [facility] Comment on above: Order Comment: No: Do not add to previou s draw Performed By: #### 5 6101 ####[facility] Chloride 104 mmol/L Normal 98-107 [facility] Comment on above: Order Comment: No: Do not add to previou s draw Performed By: #### 5 6101 ####[facility] CO2 28 mmol/L Normal 21-31 [facility] Comment on above: Order Comment: No: Do not add to previou s draw Performed By: #### 5 6101 ####[facility] Creatinine 1.29 mg/dL Normal 0.70-1.30 [facility] Comment on above: Order Comment: No: Do not add to previou s draw Performed By: #### 5 6101 ####[facility] eGFR (black) mL/min/{1.73_m2} Normal >60 [facility] Comment on above: Order Comment: No: Do not add to previou s draw Result Comment: Calc ulation may not be valid for patients over 70 years Performed By: #### 5 6101 ####[facility] [place] [address], [facility] eGFR (non-black) 55 ml/min/1.73sq m Abnormal >60 [facility] Comment on above: Order Comment: No: Do not add to previou s draw Result Comment: Calc ulation may not be valid for patients over 70 years Performed By: #### 5 6101 ####[facility] [place] [address], [facility] Glucose mass conc 76 mg/dL Normal 70-100 [facility] Comment on above: Order Comment: No: Do not add to previou s draw Performed By: #### 5 6101 ####[facility] [place] [address], [facility] Potassium molar conc 4.0 mmol/L Normal 3.5-5.1 [facility] Comment on above: Order Comment: No: Do not add to previou s draw Performed By: #### 5 6101 ####[facility] [place] [address], [facility] Sodium 139 mmol/L Normal 136-145 [facility] Comment on above: Order Comment: No: Do not add to previou s draw Performed By: #### 5 6101 ####[facility] [place] [address], [facility] Urea nitrogen 25 mg/dL Normal 7-25 [facility] Comment on above: Order Comment: No: Do not add to previou s draw Performed By: #### 5 6101 ####[facility] [place] [address], [facility] POC GLUCOSE LABon 06-11-2017 Glucose mass conc 70 mg/dL Normal 70-100 [facility] Comment on above: Performed By: #### 33852, 28975, 33345 # ###[facility] [place] [address], [place] Glucose mass conc 57 mg/dL Low 70-100 [facility] Comment on above: Performed By: #### 56080 ####[facility] [id number], [facility] Glucose mass conc 93 mg/dL Normal 70-100 [facility] Comment on above: Performed By: #### 10837 ####[facility] [facility] [place] [address], [facility] Glucose mass conc 64 mg/dL Low 70-100 [facility] Comment on above: Performed By: #### 55879 ####[facility] [facility] [place] [address], [facility] Glucose mass conc 75 mg/dL Normal 70-100 [facility] Comment on above: Performed By: #### 86092 ####[facility] [facility].[address] PROTHROMBIN TIMEon 7 INR Coag RelTime (PPP) 1.11 {INR} Normal 0.91-1.16 [facility] Comment on above: Order Comment: No: Do [...] OF ACTION, CLINICALEFFECTIVENESS, AND OPTIMAL THERAPEUTIC RANGE. [id number];108:231S-246S. Performed By: #### 5 6101 ####[facility] Prothrombin time (PT) Coag time (PPP) 14.4 s Normal 12.3-14.8 [facility] Comment on above: Order Comment: No: Do not add to previou s draw Result Comment: ALL RESULTS MUST BE INTERPRETED WITH RESPECT TO BLOOD DRAWING ARTIFACTOR DILUTION ERROR OF ANTICOAGULANT AT THE TIME OF SAMPLING. Performed By: #### 5 6101 ####[facility] BASIC METABOLIC PANELon 10-0 Calcium 9.2 mg/dL Normal 8.6-10.3 [facility] Comment on above: Order Comment: No: Do not add to previou s draw Performed By: #### 5 6101 ####[facility] Chloride 100 mmol/L Normal 98-107 [facility] Comment on above: Order Comment: No: Do not add to previou s draw Performed By: #### 5 6101 ####[facility] [place] [address], [facility] CO2 29 mmol/L Normal 21-31 [facility] Comment on above: Order Comment: No: Do not add to previou s draw Performed By: #### 5 6101 ####[facility] Creatinine 1.56 mg/dL High 0.70-1.30 [facility] Comment on above: Order Comment: No: Do not add to previou s draw Performed By: #### 5 6101 ####[facility] eGFR (black) 53 ml/min/1.73sq m Abnormal >60 [facility] Comment on above: Order Comment: No: Do not add to previou s draw Result Comment: Calc ulation may not be valid for patients over 70 years Performed By: #### 5 6101 ####[facility] eGFR (non-black) 44 ml/min/1.73sq m Abnormal >60 [facility] Comment on above: Order Comment: No: Do not add to previou s draw Result Comment: Calc ulation may not be valid for patients over 70 years Performed By: #### 5 6101 ####[facility] Glucose mass conc 88 mg/dL Normal 70-100 [facility] Comment on above: Order Comment: No: Do not add to previou s draw Performed By: #### 5 6101 ####[facility]3000 [facility].[address] Potassium molar conc 4.3 mmol/L Normal 3.5-5.1 [facility] Comment on above: Order Comment: No: Do not add to previou s draw Performed By: #### 5 6101 ####[facility] Sodium 138 mmol/L Normal 136-145 [facility] Comment on above: Order Comment: No: Do not add to previou s draw Performed By: #### 5 6101 ####[facility] Urea nitrogen 29 mg/dL High 7-25 [facility] Comment on above: Order Comment: No: Do not add to previou s draw Performed By: #### 5 6101 ####[facility] CBC W/DIFFon 06-10-2017 Basophils Auto #/vol (Bld) 0.4 % Normal 0.0-2.0 [facility] Comment on above: Order Comment: No: Do not add to previou s draw Performed By: #### 5 6101 ####[facility] [place] [address], [facility] Eosinophils/100 leukocytes 2.1 % Normal 0.0-5.0 [facility] Comment on above: Order Comment: No: Do not add to previou s draw Performed By: #### 5 6101 ####[facility] Erythrocyte distribution width Auto Ratio (RBC) 14.9 % Normal 11.5-16.9 [facility] Comment on above: Order Comment: No: Do not add to previou s draw Performed By: #### 5 6101 ####[facility] Erythrocytes (RBC) 4.60 mill/mm3 Normal 4.30-5.90 [facility] Comment on above: Order Comment: No: Do not add to previou s draw Performed By: #### 5 6101 ####[facility] Hematocrit (HCT) 40.0 % Normal 39.0-55.0 [facility] Comment on above: Order Comment: No: Do not add to previou s draw Performed By: #### 5 6101 ####[facility] [place] [address], [facility] Hemoglobin mass conc (Bld) 12.9 g/dL Low 13.9-16.3 [facility] Comment on above: Order Comment: No: Do not add to previou s draw Performed By: #### 5 6101 ####[facility] [place] [address], [facility] Lymphocytes/100 leukocytes 21.0 % Normal 20.0-40.0 [facility] Comment on above: Order Comment: No: Do not add to previou s draw Performed By: #### 5 6101 ####[facility] MCH 27.9 pg Normal 24.0-32.0 [facility] Comment on above: Order Comment: No: Do not add to previou s draw Performed By: #### 5 6101 ####[facility] [place] [address], [facility] MCHC mass conc (RBC) 32.1 g/dL Normal 32.0-36.0 [facility] Comment on above: Order Comment: No: Do not add to previou s draw Performed By: #### 5 6101 ####[facility] MCV 87.0 fL Normal 80.0-100.0 [facility] Comment on above: Order Comment: No: Do not add to previou s draw Performed By: #### 5 6101 ####[facility] METHOD Normal RBC Morphology Normal [facility] Comment on above: Order Comment: No: Do not add to previou s draw Performed By: #### 5 6101 ####[facility] MONOS 6.6 % Normal 2-8 [facility] Comment on above: Order Comment: No: Do not add to previou s draw Performed By: #### 5 6101 ####[facility] [place] [address], [facility] Neutrophils/100 leukocytes 69.9 % Normal 50-70 [facility] Comment on above: Order Comment: No: Do not add to previou s draw Performed By: #### 5 6101 ####[facility] [place] [address], [place] PLAT CNT 210 Thou/mm3 Normal 100-400 [facility] Comment on above: Order Comment: No: Do not add to previou s draw Performed By: #### 5 6101 ####[facility] WBC (Leukocytes) 8.7 Thou/mm3 Normal 4.0-10.0 [facility] Comment on above: Order Comment: No: Do not add to previou s draw Performed By: #### 5 6101 ####[facility] POC GLUCOSE LABon 06-10-2017 Glucose mass conc 97 mg/dL Normal 70-100 [facility] Comment on above: Performed By: #### 51784 ####[facility] PROTHROMBIN TIMEon 7 INR Coag RelTime (PPP) 1.10 {INR} Normal 0.91-1.16 [facility] Comment on above: Order Comment: No: Do [...] OF ACTION, CLINICALEFFECTIVENESS, AND OPTIMAL THERAPEUTIC RANGE. [id number];108:231S-246S. Performed By: #### 5 6101 ####[facility] [facility].[address] Prothrombin time (PT) Coag time (PPP) 14.3 s Normal 12.3-14.8 [facility] Comment on above: Order Comment: No: Do not add to previou s draw Result Comment: ALL RESULTS MUST BE INTERPRETED WITH RESPECT TO BLOOD DRAWING ARTIFACTOR DILUTION ERROR OF ANTICOAGULANT AT THE TIME OF SAMPLING. Performed By: #### 5 6101 ####[facility] [facility].[address] Discharge Summaryon 05-18-20 Discharge Summary MR#: [id number] [facility] Admitted: 05/13/2017 Discharged: [...] placement in 2006. He was evaluated at [facility] and [facility] for thrombosed IVC filter and was told that conservative management is the best option.9. Iron deficiency anemia.PROCEDURE:1. Dual chamber right atrium and right ventricular AICD on 05/14/2017.2. Right ventricular lead repositioning on 05/15/2017.HPI: Mr. Francis is a 71 years old male who was transferred from [facility] with a presyncopal episode and fatigue. His family reported thathe was dizzy, lightheaded and incoherent after dinner. EKG at [facility] showed high-degree AV block with [...] fatigue in the past.He was transferred to [facility] with symptomatic high second-degree AV block forpacemaker insertion.During hospital stay to [facility], the patient had episode of dizziness when [...] By:Diaz Teran MD 05/19/2017 09:47 PElectronically Signed by:Dorcas Chin M.D. 06/08/2017 01:30 A ____Dorcas Chin M.D. I personally saw this patient on the day of the encounter, performed thekey portion(s) of the service and participated in the management andconfirm the resident's documentation. Please note there may be anadditional personal documentation from me. Date Dict: 05/17/2017/08:48 P/SCAR Gutierrezate Trans: 05/18/2017 02:15 [id number]: Charlie Stark M.D. [address] [place] [address] [place] [facility] Cardiovascular Lab Reporton 05-17-2017 Cardiovascular Lab Report [facility] Patient Name: Dylon Francis [facility] MR #: [id number] Physician: Dorcas Chin,Department of M.D.Medicine Service Date: 05/15/2017Division of Birthdate: 4Cardiology Room #: 3AB [id number] CardiovascularServicDebra [place] [address]Phone Fax Cardiovascular Laboratory ReportPROCEDURE: Revision of RV [...] (RVlead) and a stylet with a 3/4 karuk curve was forwarded down the lead andthe [...] lead.2. RV lead, Biotronik Solia S53.3. Model #18958, serial #[id number]. RV sensing was 12 mV.5. RV pacing threshold was 0.4 V at 0.4 milliseconds.6. RV lead impedance 682 ohms.7. RA lead retained and capped inside the port of the pacer.8. The check showed a P-wave of 3.4 mV, a threshold of 0.8 V at 0.4 milliseconds and the impedance was 448 ohms.9. This is a Biotronik Solia S45 cm, model #098722 and serial #[id number].Retained pulse generator model Eluna 8 DR-T, model #807901 and serial#[id number].FINAL CONCLUSIONS:1. Successful repositioning of RV lead.2. We [...] 05/16/2017/05:30 P/Dorcas Chin M.D.Date Trans: 05/17/2017 06:31 A/[id number]_JN:[id number]: Charlie Stark M.D. [address] [place] [address] Normal [facility] BASIC METABOLIC PANELon 09-0 Calcium 8.4 mg/dL Low 8.6-10.3 [facility] Comment on above: Order Comment: No: Do not add to previou s draw Performed By: #### 5 0608 ####[facility] [place] [address], [facility] Chloride 101 mmol/L Normal 98-107 [facility] Comment on above: Order Comment: No: Do not add to previou s draw Performed By: #### 5 0608 ####[facility] [place] [address], [facility] CO2 31 mmol/L Normal 21-31 [facility] Comment on above: Order Comment: No: Do not add to previou s draw Performed By: #### 5 0608 ####[facility] [place] [address], [facility] Creatinine 1.39 mg/dL High 0.70-1.30 [facility] Comment on above: Order Comment: No: Do not add to previou s draw Performed By: #### 5 0608 ####[facility] [place] [address], [facility] eGFR (black) mL/min/{1.73_m2} Normal >60 [facility] Comment on above: Order Comment: No: Do not add to previou s draw Result Comment: Calc ulation may not be valid for patients over 70 years Performed By: #### 5 0608 ####[facility] [place] [address], [facility] eGFR (non-black) 50 ml/min/1.73sq m Abnormal >60 [facility] Comment on above: Order Comment: No: Do not add to previou s draw Result Comment: Calc ulation may not be valid for patients over 70 years Performed By: #### 5 0608 ####[facility] Glucose mass conc 70 mg/dL Normal 70-100 [facility] Comment on above: Order Comment: No: Do not add to previou s draw Performed By: #### 5 0608 ####[facility]3000 [facility].[address] Potassium molar conc 4.0 mmol/L Normal 3.5-5.1 [facility] Comment on above: Order Comment: No: Do not add to previou s draw Performed By: #### 5 0608 ####[facility] [facility].[address] Sodium 137 mmol/L Normal 136-145 [facility] Comment on above: Order Comment: No: Do not add to previou s draw Performed By: #### 5 0608 ####[facility] [facility].[address] Urea nitrogen 20 mg/dL Normal 7-25 [facility] Comment on above: Order Comment: No: Do not add to previou s draw Performed By: #### 5 0608 ####[facility] [facility].[address] CBC W/DIFFon 05-16-2017 Basophils Auto #/vol (Bld) 0.5 % Normal 0.0-2.0 [facility] Comment on above: Order Comment: No: Do not add to previou s draw Performed By: #### 5 0608 ####[facility] Eosinophils/100 leukocytes 3.3 % Normal 0.0-5.0 [facility] Comment on above: Order Comment: No: Do not add to previou s draw Performed By: #### 5 0608 ####[facility] Erythrocyte distribution width Auto Ratio (RBC) 15.0 % Normal 11.5-16.9 [facility] Comment on above: Order Comment: No: Do not add to previou s draw Performed By: #### 5 0608 ####[facility]3000 [facility].[address] Erythrocytes (RBC) 4.59 mill/mm3 Normal 4.30-5.90 [facility] Comment on above: Order Comment: No: Do not add to previou s draw Performed By: #### 5 0608 ####[facility] [facility].[address] Hematocrit (HCT) 40.0 % Normal 39.0-55.0 [facility] Comment on above: Order Comment: No: Do not add to previou s draw Performed By: #### 5 0608 ####[facility] [facility].[address] Hemoglobin mass conc (Bld) 12.8 g/dL Low 13.9-16.3 [facility] Comment on above: Order Comment: No: Do not add to previou s draw Performed By: #### 5 0608 ####[facility] [facility] [place] [address], [facility] Lymphocytes/100 leukocytes 20.3 % Normal 20.0-40.0 [facility] Comment on above: Order Comment: No: Do not add to previou s draw Performed By: #### 5 0608 ####[facility] [facility].[address] MCH 27.9 pg Normal 24.0-32.0 [facility] Comment on above: Order Comment: No: Do not add to previou s draw Performed By: #### 5 0608 ####[facility] [place] [address], [facility] MCHC mass conc (RBC) 32.1 g/dL Normal 32.0-36.0 [facility] Comment on above: Order Comment: No: Do not add to previou s draw Performed By: #### 5 0608 ####[facility] [place] [address], [facility] MCV 87.2 fL Normal 80.0-100.0 [facility] Comment on above: Order Comment: No: Do not add to previou s draw Performed By: #### 5 0608 ####[facility] [place] [address], [facility] METHOD Normal [facility] Comment on above: Order Comment: No: Do not add to previou s draw Result Comment: Auto mated differential performedNormal RBC Morphology Performed By: #### 5 0608 ####[facility] [place] [address], [facility] MONOS 8.2 % High 2-8 [facility] Comment on above: Order Comment: No: Do not add to previou s draw Performed By: #### 5 0608 ####[facility] [place] [address], [facility] Neutrophils/100 leukocytes 67.7 % Normal 50-70 [facility] Comment on above: Order Comment: No: Do not add to previou s draw Performed By: #### 5 0608 ####[facility] [place] [address], [facility] PLAT CNT 183 Thou/mm3 Normal 100-400 [facility] Comment on above: Order Comment: No: Do not add to previou s draw Performed By: #### 5 0608 ####[facility] [id number], [facility] WBC (Leukocytes) 5.7 Thou/mm3 Normal 4.0-10.0 [facility] Comment on above: Order Comment: No: Do not add to previou s draw Performed By: #### 5 0608 ####[address] POC GLUCOSE LABon 05-16-2017 Glucose mass conc 120 mg/dL High 70-100 [facility] Comment on above: Performed By: #### [id number] ####[place] [address], [facility] Glucose mass conc 71 mg/dL Normal 70-100 [facility] Comment on above: Performed By: #### [address] ####[address] PORTABLE CHEST 1 VIEWon PORTABLE CHEST 1 VIEW [facility] Pwvtfrail[address] [place], [place] [address] ========Patient Name: DYLON FRANCIS : 1945Sex: MAge: Race: WhiteMRN: [id number]. Location: [id number] Status: IVisit #: [id number] Date: 05/16/2017 8:00:00 AMCompleted Date: 05/16/2017 07:24 AMRequesting Provider: DIAZ TERAN Attending Provider: ROSEMARY MONTGOMERY Report Copy To: Signs & Symptoms: Post Pacemaker/AICD PlacementHistory: Patient history not availableComments: Check Pacemaker/AICD Lead PositionExam: PORTABLE CHEST 1 VIEWAccession #: [id number] PORTABLE CHEST 1 VIEW 05/16/2017 7:24 AM [...] findings. Electronically signed by:Matthew Serrano. Transcribed by: [email or web address], User Resident: GAIL GARCIAElectronically Signed by: MATTHEW SERRANO @ 05/16/2017 10:04 AMI personally read this/these film(s) with this resident Normal [facility] Comment on above: Order Comment: No: Do not add to previou s draw PROTHROMBIN TIMEon 7 INR Coag RelTime (PPP) 1.18 {INR} High 0.91-1.16 [facility] Comment on above: Order Comment: No: Do [...] OF ACTION, CLINICALEFFECTIVENESS, AND OPTIMAL THERAPEUTIC RANGE. [id number];108:231S-246S. Performed By: #### 5 0608 ####[facility] [facility].[address] Prothrombin time (PT) Coag time (PPP) 15.1 s High 12.3-14.8 [facility] Comment on above: Order Comment: No: Do not add to previou s draw Result Comment: ALL RESULTS MUST BE INTERPRETED WITH RESPECT TO BLOOD DRAWING ARTIFACTOR DILUTION ERROR OF ANTICOAGULANT AT THE TIME OF SAMPLING. Performed By: #### 5 0608 ####[facility] [facility].[address] APTTon 05-15-2017 aPTT 31.8 s Normal 25.0-35.0 [facility] Comment on above: Order Comment: if not [...] THIS PURPOSE. Performed By: #### 5 6101, 12127 ####[facility] [facility].[address] BASIC METABOLIC PANELon Calcium 8.8 mg/dL Normal 8.6-10.3 [facility] Comment on above: Order Comment: if not already doneNo: Do not add to previous draw Performed By: #### 5 610, 58234 ####[facility] [place] [address], [facility] Chloride 103 mmol/L Normal 98-107 [facility] Comment on above: Order Comment: if not already doneNo: Do not add to previous draw Performed By: #### 5 610, 68127 ####[facility] [place] [address], [place] CO2 29 mmol/L Normal 21-31 [facility] Comment on above: Order Comment: if not already doneNo: Do not add to previous draw Performed By: #### 5 610, 45923 ####[facility] [id number], [facility] Creatinine 1.71 mg/dL High 0.70-1.30 [facility] Comment on above: Order Comment: if not already doneNo: Do not add to previous draw Performed By: #### 5 610, 72331 ####[facility] [place] [address], [facility] eGFR (black) 48 ml/min/1.73sq m Abnormal >60 [facility] Comment on above: Order Comment: if not already doneNo: Do not add to previous draw Result Comment: Calc ulation may not be valid for patients over 70 years Performed By: #### 5 610, 63300 ####[facility] [place] [address], [facility] eGFR (non-black) 39 ml/min/1.73sq m Abnormal >60 [facility] Comment on above: Order Comment: if not already doneNo: Do not add to previous draw Result Comment: Calc ulation may not be valid for patients over 70 years Performed By: #### 5 6101, 04630 ####[facility] [place] [address], [place] Glucose mass conc 94 mg/dL Normal 70-100 [facility] Comment on above: Order Comment: if not already doneNo: Do not add to previous draw Performed By: #### 5 6101, 38187 ####[facility] [facility].[address] Potassium molar conc 4.9 mmol/L Normal 3.5-5.1 [facility] Comment on above: Order Comment: if not already doneNo: Do not add to previous draw Performed By: #### 5 610, 23288 ####[facility] [facility].[address] Sodium 138 mmol/L Normal 136-145 [facility] Comment on above: Order Comment: if not already doneNo: Do not add to previous draw Performed By: #### 5 610, 72419 ####[facility] Urea nitrogen 24 mg/dL Normal 7-25 [facility] Comment on above: Order Comment: if not already doneNo: Do not add to previous draw Performed By: #### 5 6100, 61854 ####[facility] [facility].[address] CBC W/DIFFon 05-15-2017 Basophils Auto #/vol (Bld) 0.4 % Normal 0.0-2.0 [facility] Comment on above: Order Comment: Unknown Performed By: #### 5 102 ####[facility] [facility].[address] Eosinophils/100 leukocytes 1.8 % Normal 0.0-5.0 [facility] Comment on above: Order Comment: Unknown Performed By: #### 5 102 ####[place] [id number] [facility].[address] Erythrocyte distribution width Auto Ratio (RBC) 14.9 % Normal 11.5-16.9 [facility] Comment on above: Order Comment: Unknown Performed By: #### 5 102 ####[facility] [facility].[address] Erythrocytes (RBC) 4.72 mill/mm3 Normal 4.30-5.90 [facility] Comment on above: Order Comment: Unknown Performed By: #### 5 0103 ####[facility] [facility].[address] Hematocrit (HCT) 41.0 % Normal 39.0-55.0 [facility] Comment on above: Order Comment: Unknown Performed By: #### 0103 ####[facility] Hemoglobin mass conc (Bld) 13.1 g/dL Low 13.9-16.3 [facility] Comment on above: Order Comment: Unknown Performed By: #### 5 3 ####[facility] [facility].[address] Lymphocytes/100 leukocytes 14.3 % Low 20.0-40.0 [facility] Comment on above: Order Comment: Unknown Performed By: #### 5 0103 ####[facility] [facility].[address] MCH 27.7 pg Normal 24.0-32.0 [facility] Comment on above: Order Comment: Unknown Performed By: #### 5 0103 ####[facility] MCHC mass conc (RBC) 31.9 g/dL Low 32.0-36.0 [facility] Comment on above: Order Comment: Unknown Performed By: #### 5 0103 ####[facility] MCV 86.8 fL Normal 80.0-100.0 [facility] Comment on above: Order Comment: Unknown Performed By: #### 5 3 ####[facility] [facility] [place] [address], [facility] METHOD Normal [facility] Comment on above: Order Comment: Unknown Result Comment: Auto mated differential performedNormal RBC Morphology Performed By: #### 5 0103 ####[facility] [facility] [place] [address], [facility] MONOS 7.0 % Normal 2-8 [facility] Comment on above: Order Comment: Unknown Performed By: #### 5 0103 ####[facility] [facility] [place] [address], [facility] Neutrophils/100 leukocytes 76.5 % High 50-70 [facility] Comment on above: Order Comment: Unknown Performed By: #### 5 0103 ####[address] [place] [address], [facility] PLAT CNT 204 Thou/mm3 Normal 100-400 [facility] Comment on above: Order Comment: Unknown Performed By: #### 5 0103 ####[facility] [facility] [place] [address], [facility] WBC (Leukocytes) 6.1 Thou/mm3 Normal 4.0-10.0 [facility] Comment on above: Order Comment: Unknown Performed By: #### 5 0103 ####[address] [place] [address], [facility] CHEST AND LATERALon 05-15-20 CHEST AND LATERAL [facility]Department of Zdadarjzk[address] [place] [id number] ========Patient Name: DYLON FRANCIS : 1945Sex: MAge: Race: WhiteMRN: [id number]. Location: [id number] Status: IVisit #: [id number] Date: 05/15/2017 7:00:00 AMCompleted Date: 05/15/2017 08:35 AMRequesting Provider: VANDANA BLANCO Attending Provider: ROSEMARY MONTGOMERY Report Copy To: Signs & Symptoms: Post Pacemaker/AICD PlacementHistory: Patient history not availableComments: Check Pacemaker/AICD Lead Position, Chest X-ray PA \EANDE\ LAT in Dept ;DO NOT lift affected arm above shoulder. S/P pacemaker/ICD implant. Verify lead placementExam: CHEST AND LATERALAccession #: [id number] CHEST AND LATERAL 05/15/2017 8:35 AM EDT [...] lobe. Electronically signed by:Malika Mendiola. Transcribed by: [email or web address], User Resident: Electronically Signed by: MALIKA MENDIOLA @ 05/15/2017 10:18 AM Normal [facility] Comment on above: Order Comment: if not already doneNo: Do not add to previous draw Cardiovascular Lab Reporton 05-15-2017 Cardiovascular Lab Report [facility] Patient Name: Dylon Francis [facility] MR #: [id number] Physician: DIANA Gtzepartment of Service Date: 05/14/2017Medicine Birthdate: 4Division of Room #: 3AB [id number] [facility], [place] [address]Udnao Fax Cardiovascular Laboratory ReportPROCEDURE: Dual-chamber pacemaker implantation.MARK UP DESIGNER: Vandana Blanco M.D.REASON FOR THE PROCEDURE: Complete [...] andhyponatremia, who presented to the [place] because he had beenhaving presyncopal episodes and extreme fatigue. His family thought he hada stroke and on 05/13/2017, he was brought to [facility]. The 1st EKG showedhigh-degree AV block with [...] aJ-wire. The sheath was then removed and 6-Syrian sheath was implanted overthe J wire. A double wiring was done. The 6-Syrian sheath was removed.One of the wires was preserved for later, the other wire had implantationof a new 6-Syrian lead. After removal of the wire, the ventricular leadwas placed in the RV mid septum with excellent parameters. Subsequently,the sheath was torn, the lead was tied into place. The atrial lead wasthen implanted through a 6-Syrian sheath that was placed over the otherJ-wire. [...] a Taylor 8 DRT Pro MRI, model #138497, the serial #[id number]. The date of implant is 05/14/2017. The atrial lead is a Biotronik Solia S 45 cm, serial #[id number]. The threshold for the atrial lead is 1.4 V at 0.4 milliseconds, the P wave was 4.4 mV and the impedance is 448 ohms. The ventricular lead is a Biotronik Solia S 53, serial #[id number], model #216892. The threshold for the ventricular lead is [...] Dict: 05/14/2017/05:38 P/Sindy Gtz Trans: 05/15/2017 02:03 P/[id number]: Charlie Stark M.D. [address] [facility] [address] Normal [facility] MAGNESIUM BLOODon 05-15-2017 Magnesium 2.2 mg/dL Normal 1.9-2.7 [facility] Comment on above: Order Comment: if not already doneNo: Do not add to previous draw Performed By: #### 5 6101, 99004 ####[facility] [place] [address], [facility] PHOSPHORUS BLOODon 7 Phosphate 3.2 mg/dL Normal 2.5-5.0 [facility] Comment on above: Order Comment: Unknown Performed By: #### 4 1000, 31550, 67968 ####[facility]3000 [facility] [place] [address], [place] POC GLUCOSE LABon 05-15-2017 Glucose mass conc 84 mg/dL Normal 70-100 [facility] Comment on above: Performed By: #### 91842 ####[facility]3000 [facility] [place] [address], [place] Glucose mass conc 72 mg/dL Normal 70-100 [facility] Comment on above: Performed By: #### 67840, 08251 ####[facility] [facility] [place] [address], [place] Glucose mass conc 63 mg/dL Low 70-100 [facility] Comment on above: Performed By: #### 40660, 53944 ####[facility] [facility] [place] [address], [place] Glucose mass conc 60 mg/dL Low 70-100 [facility] Comment on above: Performed By: #### 04693, 84034 ####[facility] [facility] [place] [address], [place] Glucose mass conc 82 mg/dL Normal 70-100 [facility] Comment on above: Performed By: #### 18963, 78584 ####[facility] [facility] [place] [address], [place] Glucose mass conc 68 mg/dL Low 70-100 [facility] Comment on above: Performed By: #### 75277, 25339 ####[facility] [place] [address], [place] Glucose mass conc 95 mg/dL Normal 70-100 [facility] Comment on above: Performed By: #### 46122 ####[facility] [facility].[address] PROTHROMBIN TIMEon 7 INR Coag RelTime (PPP) 1.34 {INR} High 0.91-1.16 [facility] Comment on above: Order Comment: if not [...] OF ACTION, CLINICALEFFECTIVENESS, AND OPTIMAL THERAPEUTIC RANGE. [id number];108:231S-246S. Performed By: #### 5 6101, 89469 ####[facility] [facility].[address] Prothrombin time (PT) Coag time (PPP) 16.7 s High 12.3-14.8 [facility] Comment on above: Order Comment: if not already doneNo: Do not add to previous draw Result Comment: ALL RESULTS MUST BE INTERPRETED WITH RESPECT TO BLOOD DRAWING ARTIFACTOR DILUTION ERROR OF ANTICOAGULANT AT THE TIME OF SAMPLING. Performed By: #### 5 6101, 18979 ####[facility] [facility] [place] [address], [facility] APTTon 05-14-2017 aPTT 33.2 s Normal 25.0-35.0 [facility] Comment on above: Order Comment: if not [...] THIS PURPOSE. Performed By: #### 5 6101, 80236 ####[facility] BASIC METABOLIC PANELon 09-0 Calcium 8.9 mg/dL Normal 8.6-10.3 [facility] Comment on above: Order Comment: No: Do not add to previou s draw Performed By: #### 1 0070, 19877, 53768 ####[facility] [place] [address], [facility] Chloride 103 mmol/L Normal 98-107 [facility] Comment on above: Order Comment: No: Do not add to previou s draw Performed By: #### 1 0070, 98093, 30035 ####[facility] [place] [address], [facility] CO2 26 mmol/L Normal 21-31 [facility] Comment on above: Order Comment: No: Do not add to previou s draw Performed By: #### 1 0070, 54102, 33272 ####[facility] [place] [address], [facility] Creatinine 1.42 mg/dL High 0.70-1.30 [facility] Comment on above: Order Comment: No: Do not add to previou s draw Performed By: #### 1 0070, 60755, 99359 ####[facility] [place] [address], [facility] eGFR (black) 59 ml/min/1.73sq m Abnormal >60 [facility] Comment on above: Order Comment: No: Do not add to previou s draw Result Comment: Calc ulation may not be valid for patients over 70 years Performed By: #### 1 0070, 43812, 46464 ####[facility] [place] [address], [facility] eGFR (non-black) 49 ml/min/1.73sq m Abnormal >60 [facility] Comment on above: Order Comment: No: Do not add to previou s draw Result Comment: Calc ulation may not be valid for patients over 70 years Performed By: #### 1 0070, 51255, 11459 ####[facility] [place] [address], [facility] Glucose mass conc 74 mg/dL Normal 70-100 [facility] Comment on above: Order Comment: No: Do not add to previou s draw Performed By: #### 1 0070, 10916, 96403 ####[facility] [place] [address], [facility] Potassium molar conc 4.3 mmol/L Normal 3.5-5.1 [facility] Comment on above: Order Comment: No: Do not add to previou s draw Performed By: #### 1 0070, 83585, 56394 ####[facility] [place] [address], [facility] Sodium 136 mmol/L Normal 136-145 [facility] Comment on above: Order Comment: No: Do not add to previou s draw Performed By: #### 1 0070, 78117, 77151 ####[facility] [place] [address], [facility] Urea nitrogen 24 mg/dL Normal 7-25 [facility] Comment on above: Order Comment: No: Do not add to previou s draw Performed By: #### 1 0070, 72938, 88920 ####[facility] CBC COMPLETE BLOOD COUNTon 0 05-14-2017 Erythrocyte distribution width Auto Ratio (RBC) 14.9 % Normal 11.5-16.9 [facility] Comment on above: Order Comment: No: Do not add to previou s draw Performed By: #### 5 0608 ####[facility] Erythrocytes (RBC) 4.51 mill/mm3 Normal 4.30-5.90 [facility] Comment on above: Order Comment: No: Do not add to previou s draw Performed By: #### 5 0608 ####[address] Hematocrit (HCT) 39.1 % Normal 39.0-55.0 [facility] Comment on above: Order Comment: No: Do not add to previou s draw Performed By: #### 5 0608 ####[facility] Hemoglobin mass conc (Bld) 12.6 g/dL Low 13.9-16.3 [facility] Comment on above: Order Comment: No: Do not add to previou s draw Performed By: #### 5 0608 ####[facility] MCH 28.0 pg Normal 24.0-32.0 [facility] Comment on above: Order Comment: No: Do not add to previou s draw Performed By: #### 5 0608 ####[facility] MCHC mass conc (RBC) 32.3 g/dL Normal 32.0-36.0 [facility] Comment on above: Order Comment: No: Do not add to previou s draw Performed By: #### 5 0608 ####[facility] [place] [address], [facility] MCV 86.9 fL Normal 80.0-100.0 [facility] Comment on above: Order Comment: No: Do not add to previou s draw Performed By: #### 5 0608 ####[facility] [place] [address], [facility] PLAT CNT 210 Thou/mm3 Normal 100-400 [facility] Comment on above: Order Comment: No: Do not add to previou s draw Performed By: #### 5 0608 ####[facility] [place] [address], [facility] WBC (Leukocytes) 6.3 Thou/mm3 Normal 4.0-10.0 [facility] Comment on above: Order Comment: No: Do not add to previou s draw Performed By: #### 5 0608 ####[facility] MAGNESIUM BLOODon 05-14-2017 Magnesium 2.1 mg/dL Normal 1.9-2.7 [facility] Comment on above: Order Comment: No: Do not add to previou s draw Performed By: #### 1 0070, 61248, 15950 ####[facility] [place] [address], [facility] PHOSPHORUS BLOODon 7 Phosphate 2.9 mg/dL Normal 2.5-5.0 [facility] Comment on above: Order Comment: No: Do not add to previou s draw Performed By: #### 1 0070, 18936, 47304 ####[facility] [place] [address], [facility] PROTHROMBIN TIMEon 7 INR Coag RelTime (PPP) 1.52 {INR} High 0.91-1.16 [facility] Comment on above: Order Comment: No: Do [...] OF ACTION, CLINICALEFFECTIVENESS, AND OPTIMAL THERAPEUTIC RANGE. [id number];108:231S-246S. Performed By: #### 5 6101 ####[facility] [facility] [place] [address], [facility] Prothrombin time (PT) Coag time (PPP) 18.5 s High 12.3-14.8 [facility] Comment on above: Order Comment: No: Do not add to previou s draw Result Comment: ALL RESULTS MUST BE INTERPRETED WITH RESPECT TO BLOOD DRAWING ARTIFACTOR DILUTION ERROR OF ANTICOAGULANT AT THE TIME OF SAMPLING. Performed By: #### 5 6101 ####[facility] [facility] [place] [address], [facility] INR Coag RelTime (PPP) 1.58 {INR} High 0.91-1.16 [facility] Comment on above: Order Comment: if not already doneNo: Do not add to previous draw Result Comment: [facility] P RECOMMENDED INR FOR WARFARIN THERAPY CONDITION INRPROPHYLAXIS OF VENOUS THROMBOSIS 2-3(HIGH-RISK SURGERY)TREATMENT OF VENOUS THROMBOSIS 2-3TREATMENT OF PULMONARY EMBOLISM 2-3PREVENTION OF SYSTEMIC EMBOLISM: 2-3 ACUTE MYOCARDIAL INFARCTION TISSUE HEART VALVES VALVULAR HEART DISEASE ATRIAL FIBRILLATION RECURRENT SYSTEMIC EMBOLISMMECHANICAL HEART VALVE 2.5-3.5 FROM: ORAL ANTICOAGULANTS. MECHANISM OF ACTION, CLINICALEFFECTIVENESS, AND OPTIMAL THERAPEUTIC RANGE. [id number];108:231S-246S. Performed By: #### 5 6101, 39646 ####[facility] Prothrombin time (PT) Coag time (PPP) 19.1 s High 12.3-14.8 [facility] Comment on above: Order Comment: if not already doneNo: Do not add to previous draw Result Comment: ALL RESULTS MUST BE INTERPRETED WITH RESPECT TO BLOOD DRAWING ARTIFACTOR DILUTION ERROR OF ANTICOAGULANT AT THE TIME OF SAMPLING. Performed By: #### 5 6101, 30885 ####[facility] [facility].[address] Encounters Encounter Date Encounter Type Care Provider Facility Start: 02-19-2024 End: 02-19-2024 ambulatory EDUARD MARCEL[facility] Start: 12-23-2023 End: 12-23-2023 ambulatory [facility] Start: 09-29-2023 End: 09-29-2023 ambulatory [facility] Start: 08-24-2023 End: 08-24-2023 ambulatory JUDSON [facility] Start: 04-01-2023 End: 04-01-2023 ambulatory [facility] Start: 01-05-2023 End: 02-04-2023 ambulatory GONSALEZ H FAWWAD Facility:[facility] Start: 12-08-2022 End: 01-02-2023 ambulatory GONSALEZ H FAWWAD Facility:[facility] Start: 11-05-2022 End: 12-05-2022 ambulatory GONSALEZ H FAWWAD Facility:[facility] Start: 10-08-2022 End: 11-05-2022 ambulatory GONSALEZ H FAWWAD Facility:[facility] Start: 09-08-2022 End: 10-08-2022 ambulatory GONSALEZ H FAWWAD Facility:[facility] Start: 08-26-2022 End: 08-27-2022 ambulatory CUCA MEJIA Facility:[facility] Start: 08-26-2022 End: 08-26-2022 Patient encounter procedure CUCA MEJIA [facility] Start: 08-25-2022 End: 08-26-[address] CHARLIE [...] Start: 09-03-2021 End: 09-04-2021 ambulatory Charan HARRELL Facility:[facility] Start: 06-10-2017 End: 06-12-2017 Ambulatory TIGIST HUANG Facility:[facility] Start: 06-04-2017 End: 06-13-2017 Ambulatory PROVIDER UNKNOWN Facility:[facility] Start: 06-02-2017 End: 06-03-2017 Ambulatory DEFAULT PHYSICIAN Facility:[facility] Start: 05-14-2017 End: 05-16-2017 Evaluation and management of inpatient DORCAS CHIN Facility:[facility] Procedures Date Procedure Procedure Detail Performing Clinician Start: 08-25-2022 PSA screening SHAIKH MARTY MEI Comment on above: Performed By: #### P SAD #### [facility] [address] [address] [address] Wili Cardona Start: 05-15-2017 REVISION OF CARDIAC LEAD IN HEART, PERCUTANEOUS APPROACH DORCAS CHIN Start: 05-14-2017 INSERT PACE. DUAL CH AM IN CHEST SUBCU/FASCIA, OPEN ARIANA KARIM Start: 05-14-2017 INSERTION OF PACEMAK ER LEAD INTO R VENTRICLE, PERC APPROACH ARIANA [place]AR[place] Wars Start: 05-14-2017 INSERTION OF PACEMAK ER LEAD INTO RIGHT ATRIUM, PERC APPROACH ARIANA Auditude Start: 03-12-2016 Transurethral prostatectomy CUCA MEJIA Start: [...] MEJIA Payers Date Payer Category Payer Medicare [id number] 1961 Medicare [id number] 1961 Private Health Insurance [id number] 1943 Unknown [id number] 2.16.8 [id number] 1943 Unknown [id number] 2.16.8 40.1.332411.3.579.2.727 1943 Unknown [id number] 2.16.84 0.1.869947.3.579.2.593 1943 Unknown [id number] 2.16.84 0.1.692752.3.579.2.593 1943 Unknown [id number] 2.16.84 0.1.834749.3.579.2.593 1943 Unknown [id number] 2.16.84 0.1.060860.3.579.2.593 1943 Unknown [id number] 2.16.84 0.1.309869.3.579.2.593 1943 Unknown [id number] 2.16.84 0.1.426556.3.579.2.593 1943 Unknown [id number] 2.16.84 0.1.306899.3.579.2.593 1943 Unknown [id number] 2.16.84 0.1.320221.3.579.2.593 1943 Unknown [id number] 2.16.84 0.1.845912.3.579.2.593 1943 Unknown [id number] 2.16.84 0.1.306474.3.579.2.593 1943 Unknown [id number] 2.16.84 0.1.182258.3.579.2.593 1943 Unknown [id number] 2.16.84 0.1.469929.3.579.2.593 1943 Unknown [id number] 2.16.84 0.1.162826.3.579.2.593 1943 Unknown [id number] 2.16.84 0.1.253374.3.579.2.593 1943 Unknown [id number] 2.16.84 0.1.030981.3.579.2.593 Medicare [id number] Unknown Social History Date Type Detail Facility Start: 08-26-2022 Tobacco smoking status Ex-smoker (fi nding) [facility] Tobacco smoking status Never [facility] Sex Assigned At Male [facility] Functional Status Date Assessment Result Facility 08-26-2022 Functional Status N/A [facility] Progress note 02-19-2024 Note Date & Type Note Facility 02-19-2024 Note [facility] Subjective Dylon Francis is a 78 [...] placement in 2006. He was evaluated at [facility] and then at [facility] for thrombosed IVC filter and was told that conservative management is the best option. 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 [facility] Progress note 08-24-2023 Note Date & Type [...] All other systems reviewed and are negative. [facility] Progress note 08-24-2023 Note Date & Type Note Facility 08-24-2023 Note [facility] Note Reason for visit: 6-month [...] renal artery stenosis; Echocardiogram 02/14/2015 at the [facility]: preserved LV systolic function, moderate diastolic dysfunction, [...] (CMS/HCC) History of (more content not included)... [facility] Hospital Discharge instructions 08-26-2022 Note Date & [...] urethra. Follow these instructions at home: Take joxb-wom-fezubsz and prescription medicines only as told by [...] 08/24/2006 Document Revised: 07/19/2019 Document Reviewed: 09/28/2017 [employer] Patient Education 2020 [employer]. Follow Up Care 09/03/2021 12:26:25 With:CUCA MEJIA PA-C, URL Address: [address] [place] [address] [phone] When: Unknown Comments:PRN [facility] Evaluation + Plan note Note Date & Type Note Facility Evaluation + Plan note No data available for this section [facility] Progress note Note Date & Type Note Facility Progress note No data available for this section [facility] Summary Purpose Family History No Family History [...] and content) DATE CREATED AUTHOR 03/02/2018 [facility] DATE CREATED AUTHOR AUTHOR'S ORGANIZ ATION 08/29/2022 [facility] DATE CREATED AUTHOR AUTHOR'S ORGANIZ ATION 02/13/2023 [facility] DATE CREATED AUTHOR AUTHOR'S ORGANIZ ATION 03/28/2024 [facility] Patient Care team informatio n (unrecognized section and content) Personnel Name: Charlie Stark MD Address: Address: [address] [place] [id number] FOR RECORDS PERTAINING TO PATIENTS WHO ARE [...] BE BASED ON THE PRIMARY CLINICAL RECORDS. [facility] [employer] [facility]. provides no warranty or guarantee of the accuracy or completeness of information in this document.
[2024-04-08 08:46] LABS: Alanine Aminotransferase 21 U/L (16-63); Albumin Globulin Ratio 1.2; Albumin Level 3.6 g/dL (3.4-5.0); Alkaline Phosphatase 97 U/L (46-116); Aspartate Amino Transferase 16 U/L (15-37); Bilirubin Direct 0.2 mg/dL (0.0-0.2); Bilirubin Total 0.6 mg/dL (0.2-1.0); Chol HDL Ratio 2.3; Cholesterol 137 mg/dL (<=200); HDL Cholesterol 60 mg/dL (40-60); LDL Cholesterol Calculated 61.6 mg/dL; Total Protein 6.6 g/dL (6.4-8.2); Triglycerides 77 mg/dL (<=150); VLDL CHOLESTEROL 15.4 mg/dL
== END 2024-04-08 07:20 | disposition home or self-care (01) ==
LOC: LAB 07:20
PROVIDERS: PCP Family Medicine; Visit Provider Internal Medicine Interventional Cardiology
DX: E78.2 Mixed hyperlipidemia (principal)
CPT/HCPCS: 36415; 80061; 80076

== ENCOUNTER 2024-05-09 01:46 | Outpatient (RCR) | payer MEDICARE, OTHER, SELFPAY | END 2024-06-06 23:47 | disposition home or self-care (01) | LOC: MM 01:46 | PROVIDERS: PCP Family Medicine; Visit Provider Internal Medicine | DX: Z51.81 Encounter for therapeutic drug level monitoring (principal); Z79.01 Long term (current) use of anticoagulants; I82.409 Acute embolism and thrombosis of unspecified deep veins of unspecified lower extremity | CPT/HCPCS: 85610; G0463 ==

== ENCOUNTER 2024-06-02 10:28 | Outpatient (OUT) | payer MEDICARE, OTHER, SELFPAY ==
--- OUTSIDE RECORDS SUMMARY | 2024-06-02 10:48 | XMS_ITS | CCD ---
Author Organization [facility] Care Team Providers Care Yarn Skeins Examiner Name Role Phone DORCAS CHIN AM Unavailable Unavailable Arthur, Rashad Unavailable Unavailable HOY, CHARLIE Unavailable Unavailable MARKER, ODESSA J Unavailable Unavailable ME Unavailable Unavailable DORCAS CHIN AM Unavailable Unavailable ME Unavailable Unavailable KARIM, ARIANA Unavailable Unavailable PHYSICIAN, [...] HOY ., DR GUERRA Primary Care Unavailable FAWLENNOXD, GONSALEZ H Attending Unavailable ERNIE PRINGLE Referring Unavailable JUDSON HUI Attending Unavailable ERNIE PRINGLE Referring Unavailable EDUARD MARCEOL Attending Unavailable EDUARD MARCELO Attending Unavailable Allergies Allergy Classification Reported Allergen(s) Allergy Type Date of Onset Reaction(s) Facility (3 sources) black walnut pollen extract; Translations: [CJAUDAW-KIL-LCT REDUCTASE INHIBITORS] Drug Allergy 2 [facility] Repository (2 sources) celecoxib Drug Allergy 2 [facility] (2 sources) HMG-CoA reductase inhibitor; Translations: [statins] Drug allergy Unknown (qualifier value) [facility] (1 source) celecoxib; Translations: [CELECOXIB] Drug Allergy 4 [facility] Medications Current Medications Medication Drug [...] Onset: 05-14-2017 Chronic Congestive heart failure; nonhypertensive (9 sources) Unspecified diastolic (congestive) heart failure; Translations: [Chronic diastolic (congestive) heart failure] Onset: 05-14-2017 Chronic Coronary atherosclerosis and other heart disease (11 sources) Atherosclerotic heart disease of [place] coronary artery without angina pectoris; Translations: [Old [...] Onset: 06-10-2017 Chronic Other aftercare (3 sources) 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; Translations: [[facility] [...] (PEDIATRIC)] Onset: 05-14-2017 Chronic Unclassified (1 source) [facility] (current) use of oral hypoglycemic drugs; Translations: [SENIOR CARE (CURRENT) USE OF ORAL HYPOGLYCEMIC DRUGS] Onset: [...] Test Name Value Interpretation Reference Range Facility Office Visiton 04-13-2024 Follow-up visit [id number] Panfilo Francis 1945 M Date Provider Department Center 04/13/2024 EDUARD PRUITT Family History Adopted: Yes Level of Service:15907 ME OFFICE/OUTPATIENT ESTABLISHED MOD MDM 30 MIN [facility] 36on 04-12-2024 36 Regarding stress zachary t result from 04/01/2024: MD Sarah Velarde MA Let's see him in follow up to optimize medical therapy, he will then need a follow up echo to check response and 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 Scheduled patient for follow up with Dr. Marcelo on 04/13/2024. [facility] 36on 03-24-2024 36 Regarding echo resul t from 03/16/2024: MD Sarah Velarde MA Let's get a stress test and see him in the office after that to optimize medical therapy. Patient's made aware. Order faxed to [facility]. [facility] Office Visiton 02-19-2024 Follow-up visit [id number] Panfilo Francis 1945 M Date Provider Department Center 02/19/2024 EDUARD PRUITT Family History Adopted: Yes Level of Service:74198 ME OFFICE/OUTPATIENT ESTABLISHED MOD MDM 30 MIN [facility] Office Visiton 08-24-2023 Follow-up visit [id number] Panfilo Francis 1945 M Date Provider Department Center 08/24/2023 JUDSON RED Family History Adopted: Yes Level of Service:23438 ME OFFICE/OUTPATIENT ESTABLISHED MOD MDM 30 MIN [facility] Ambulatory Visit Summaryon 1 10-27-2021 Ambulatory Visit Summary DYLON FRANCIS :1945 Visit Date:08/26/2022 Ambulatory Visit Instructions Your Diagnosis BPH with urinary obstruction Nocturia Frequent urination Other obstructive and reflux uropathy Tests Performed Urnls Dip Stick Auto w/o Microscopy POC 43078 Your Care Team Attending Physician - CUCA [...] Appointments Follow Up with CUCA MEJIA PA-C, KELLY When: Comments: PRN Where: [address] [place] [address] [phone] Medications What How Much When Instructions Unchanged [...] Urnls Dip Stick Auto w/o Microscopy POC 63885 (08/26/2022) Bilirubin Urine Dipstick - Negative Blood Urine Dipstick - Negative Glucose Urine Dipstick - Negative Ketones Urine Dipstick - Negative Leukocytes Urine Dipstick - Trace Nitrite Urine Dipstick - Negative Protein Urine Dipstick - Negative Specific [place] Urine Dipstick - 1.015 Urine Appearance Urine Dipstick - Clear Urine Color Urine Dipstick - Yellow Urobilinogen Urine Dipstick - Normal (more content not included)... Normal [facility] Lab Reportson 08-26-2022 Lab Reports [id number]:127 Normal [facility] Patient Educationon 08-26-20 22 Patient Education Urology [...] Follow these instructions at home: ? Take stxi-epy-aqonjdg and prescription medicines only as told by [...] You d (more content not included)... Normal [facility] Urology Office/Clinic Noteon 08-26-2022 Urology Office/Clinic Note [...] any issues. Follow-up With When Contact Information JACKIE WELLS, CUCA Callahan, URL [address] [place] [address] [phone] Additional Instructions: PRN Patient Education Benign Prostatic Hyperplasia I, Madalyn Pedroza, personally scribed for Cuca Mejia on 08/26/2022 [...] Protein Urine Dipstick: Negative (08/26/22 12:57:00) Specific [place] Urine Dipstick: 1.015 (08/26/22 12:57:00) Urine Appearance Urine Dipstick: Clear (08/26/22 12:57:00) Urine Color Urine Dipstick: Yellow (08/26/22 12:57:00) Urobilinogen Urine Dipstick: Normal 0.2-1 E (more content not included)... Normal [facility] Comment on above: Result Comment: Electronically Signed By : CUCA MEJIA PA-C\.br\Date and Time Signed: 08/26/22 14:29 EST\.br\Electronically Co-Signed By: Madalyn Pedroza\.br\Date and Time Co-Signed: 08/26/22 13:31 EST PROF CHEM 8 (BAS METB)on Anion gap [Moles/Vol] 5.7 mmol/L Normal [facility] Comment on above: Performed By: #### BMP #### [facility] [address] [address] [address] Wili Cardona Calcium [Mass/Vol] 8.5 mg/dL Normal 8.5-10.1 [facility] Comment on above: Performed By: #### BMP #### [facility] [address] [address] [address] Wili Cardona Chloride [Moles/Vol] 100 mmol/L Normal 98-107 [facility] Comment on above: Performed By: #### BMP #### [facility] [address] [place] [address] Dr. Wili Cardona CO2 [Moles/Vol] 36.1 mmol/L Critically high 21.0-32.0 [facility] Comment on above: Performed By: #### BMP #### [facility] [address] [place] [address] Dr. Wili Cardona Creatinine [Mass/Vol] 1.29 mg/dL Normal 0.70-1.30 [facility] Comment on above: Performed By: #### BMP #### [facility] [address] [place] [address] Dr. Wili Cardona EGFR-AF GREENLANDIC >60 Normal >=60 [facility] Comment on above: Performed By: #### BMP #### [facility] [address] [place] [address] Dr. Wili Cardona EGFR-NON AF GRE[place] 54 mL/min/1.73m2 Critically low >=60 [facility] Comment on above: Performed By: #### BMP #### [facility] [address] [address] [address] Wili Cardona Glucose [Mass/Vol] 131 mg/dL Critically high 74-106 [facility] Comment on above: Performed By: #### BMP #### [facility] [address] [place] [address] Dr. Wili Cardona Potassium [Moles/Vol] 3.8 mmol/L Normal 3.5-5.1 [facility] Comment on above: Performed By: #### BMP #### [facility] [address] [place] [address] Dr. Wili Cardona Sodium [Moles/Vol] 138 mmol/L Normal 136-145 [facility] Comment on above: Performed By: #### BMP #### [facility] [address] [place] [address] Dr. Wili Cardona Urea nitrogen [Mass/Vol] 23.0 mg/dL Critically high 7.0-18.0 [facility] Comment on above: Performed By: #### BMP #### [facility] [address] [place] [address] Dr. Wili Cardona Urea nitrogen/Creatin ine [Mass ratio] 17.8 mg/mg Normal [facility] Comment on above: Performed By: #### BMP #### [facility] [address] [place] [address] Dr. Wili Cardona CBC AUTO DIFFon 04-16-2022 BASO # 0.0 103/ul Normal 0.0-0.1 [facility] Comment on above: Performed By: #### CBC #### [facility] [address] [place] [address] Dr. Wili Cardona Basophils/100 WBC (Bld) 0.3 % Normal 0.2-2.0 [facility] Comment on above: Performed By: #### CBC #### [facility] [address] [place] [address] Dr. Wili Cardona EO # 0.1 103/ul Normal 0.0-0.7 [facility] Comment on above: Performed By: #### CBC #### [facility] [address] [place] [address] Dr. Wili Cardona Eosinophils/100 WBC (Bld) 1.5 % Normal 0.9-7.0 [facility] Comment on above: Performed By: #### CBC #### [facility] [address] [place] [address] Dr. Wili Cardona Erythrocyte distribution width (RBC) [Ratio] 13.4 % Normal 11.0-15.0 [facility] Comment on above: Performed By: #### CBC #### [facility] [address] [place] [address] Dr. Wili Cardona Hematocrit (Bld) [Volume fraction] 41.1 % Critically low 42.0-54.0 [facility] Comment on above: Performed By: #### CBC #### [facility] [address] [place] [address] Dr. Wili Cardona Hemoglobin (Bld) [Mass/Vol] 13.3 g/dL Critically low 14.0-18.0 [facility] Comment on above: Performed By: #### CBC #### [facility] [address] [place] [address] Dr. Wili Cardona IG # 0.02 10e3/ul Normal 0.00-0.03 [facility] Comment on above: Performed By: #### CBC #### [facility] [address] [place] [address] Dr. Wili Cardona IG % 0.3 % Normal 0.0-0.5 [facility] Comment on above: Performed By: #### CBC #### [facility] [address] [place] [address] Dr. Wili Cardona LYMPH # 1.5 103/ul Normal 1.2-3.8 [facility] Comment on above: Performed By: #### CBC #### [facility] [address] [place] [address] Dr. Wili Cardona Lymphocytes/100 WBC (Bld) 22.7 % Normal 20.5-60.0 [facility] Comment on above: Performed By: #### CBC #### [facility] [address] [place] [address] Dr. Wili Cardona MANUAL DIFF REQ NO Normal [facility] Comment on above: Performed By: #### CBC #### [facility] [address] [place] [address] Dr. Wili Cardona MCH (RBC) [Entitic mass] 30.0 pg Normal 25.9-34.0 [facility] Comment on above: Performed By: #### CBC #### [facility] [address] [place] [address] Dr. Wili Cardona MCHC (RBC) [Mass/Vol] 32.4 g/dL Normal 29.9-35.2 [facility] Comment on above: Performed By: #### CBC #### [facility] [address] [address] [address] Wili Cardona MCV (RBC) [Entitic vol] 92.6 fL Normal 80.0-94.0 [facility] Comment on above: Performed By: #### CBC #### [facility] [address] [place] [address] Dr. Wili Cardona MONO # 0.5 103/ul Normal 0.3-0.8 [facility] Comment on above: Performed By: #### CBC #### [facility] [address] [place] [address] Dr. Wili Cardona Monocytes/100 WBC (Bld) 7.4 % Normal 1.7-12.0 [facility] Comment on above: Performed By: #### CBC #### [facility] [address] [place] [address] Dr. Wili Cardona NEUT # 4.5 103/ul Normal 1.4-6.5 [facility] Comment on above: Performed By: #### CBC #### [facility] [address] [place] [address] Dr. Wili Cardona Neutrophils/100 WBC (Bld) 67.8 % Normal 43.0-75.0 [facility] Comment on above: Performed By: #### CBC #### [facility] [address] [place] [address] Dr. Wili Cardona Platelet mean volume (Bld) [Entitic vol] 9.5 fL Normal 9.5-13.5 [facility] Comment on above: Performed By: #### CBC #### [facility] [address] [place] [address] Dr. Wili Cardona PLT 151 103/ul Normal 150-450 [facility] Comment on above: Performed By: #### CBC #### [facility] [address] [place] [address] Dr. Wili Cardona RBC 4.44 106/ul Critically low 4.70-6.10 [facility] Comment on above: Performed By: #### CBC #### [facility] [address] [address] [address] Wili Cardona WBC 6.6 103/ul Normal 4.0-11.0 [facility] Comment on above: Performed By: #### CBC #### [facility] [address] [address] [address] Wili Cardona LIPID PROFILEon 04-16-2022 CHOL-HDL RATIO NORM SEE BELOW Normal [facility] Comment on above: Result Comment: 3.3 - 4.4 LOW RISK 4.4 - 7.1 AVERAGE RISK 7.1 - 11.0 MODERATE RISK >11.0 HIGH RISK Performed By: #### L IPID, CMP #### [facility] [address] [address] [address] Wili Cardona Cholesterol [Mass/Vol] 213 mg/dL Critically high <=200 [facility] Comment on above: Performed By: #### LIPID, CMP #### [facility] [address] [address] [address] Wili Cardona Cholesterol in HDL [Mass/Vol] 54 mg/dL Normal 40-60 [facility] Comment on above: Performed By: #### LIPID, CMP #### [facility] [address] [address] [address] Wili Cardona Cholesterol in LDL [Mass/Vol] 147.2 mg/dL Normal [facility] Comment on above: Performed By: #### LIPID, CMP #### [facility] [address] [address] [address] Wili Cardona Cholesterol.tota l/Cholesterol in HDL [Mass ratio] 3.9 {ratio} Normal [facility] Comment on above: Performed By: #### LIPID, CMP #### [facility] [address] [address] [address] Wili Cardona HDL NORMAL > or = 60 mg/dl - LO W CARDIOVASCULAR RISK <40 mg/dl - HIGH CARDIOVASCULAR RISK Normal [facility] Comment on above: Performed By: #### LIPID, CMP #### [facility] [address] [address] [address] Wili Cardona LDL CALC NORMAL SEE BELOW Normal [facility] Comment on above: Result Comment: <100 mg/dl OPTIMAL 100 - 129 mg/dl NEAR OR ABOVE OPTIMAL 130 - 159 mg/dl BORDERLINE HIGH 160 - 189 mg/dl HIGH >190 mg/dl VERY HIGH Performed By: #### L IPID, CMP #### [facility] [address] [place] [address] Dr. Wili Cardona Triglyceride [Mass/Vol] 59 mg/dL Normal <=150 [facility] Comment on above: Performed By: #### LIPID, CMP #### [facility] [address] [place] [address] Dr. Wili Cardona VLDL CALC 11.8 mg/dL Normal [facility] Comment on above: Performed By: #### LIPID, CMP #### [facility] [address] [place] [address] Dr. Wili Cardona PROF 14(COMP METB)on 022 Albumin [Mass/Vol] 3.2 g/dL Critically low 3.4-5.0 [facility] Comment on above: Performed By: #### LIPID, CMP #### [facility] [address] [place] [address] Dr. Wili Cardona Albumin/Globulin [Mass ratio] 0.9 {ratio} Normal [facility] Comment on above: Performed By: #### LIPID, CMP #### [facility] [address] [place] [address] Dr. Wili Cardona ALP [Catalytic activity/Vol] 83 U/L Normal 46-116 [facility] Comment on above: Performed By: #### LIPID, CMP #### [facility] [address] [place] [address] Dr. Wili Cardona ALT [Catalytic activity/Vol] 17 U/L Normal 16-63 [facility] Comment on above: Performed By: #### LIPID, CMP #### [facility] [address] [place] [address] Dr. Wili Cardona Anion gap [Moles/Vol] 10.6 mmol/L Normal [facility] Comment on above: Performed By: #### LIPID, CMP #### [facility] [address] [place] [address] Dr. Wili Cardona AST [Catalytic activity/Vol] 16 U/L Normal 15-37 [facility] Comment on above: Performed By: #### LIPID, CMP #### [facility] [address] [place] [address] Dr. Wili Cardona Bilirubin [Mass/Vol] 0.6 mg/dL Normal 0.2-1.0 [facility] Comment on above: Performed By: #### LIPID, CMP #### [facility] [address] [place] [address] Dr. Wili Cardona Calcium [Mass/Vol] 8.9 mg/dL Normal 8.5-10.1 [facility] Comment on above: Performed By: #### LIPID, CMP #### [facility] [address] [place] [address] Dr. Wili Cardona Chloride [Moles/Vol] 102 mmol/L Normal 98-107 [facility] Comment on above: Performed By: #### LIPID, CMP #### [facility] [address] [place] [address] Dr. Wili Cardona CO2 [Moles/Vol] 32.7 mmol/L Critically high 21.0-32.0 [facility] Comment on above: Performed By: #### LIPID, CMP #### [facility] [address] [place] [address] Dr. Wili Cardona Creatinine [Mass/Vol] 1.13 mg/dL Normal 0.70-1.30 [facility] Comment on above: Performed By: #### LIPID, CMP #### [facility] [address] [place] [address] Dr. Wili Cardona EGFR-AF GRE[place] >60 Normal >=60 [facility] Comment on above: Performed By: #### LIPID, CMP #### [facility] [address] [place] [address] Dr. Wili Cardona EGFR-NON AF [place] >60 Normal >=60 [facility] Comment on above: Performed By: #### LIPID, CMP #### [facility] [address] [place] [address] Dr. Wili Cardona Globulin (S) [Mass/Vol] 3.4 g/dL Normal [facility] Comment on above: Performed By: #### LIPID, CMP #### [facility] [address] [address] [address] Wili Cardona Glucose [Mass/Vol] 85 mg/dL Normal 74-106 [facility] Comment on above: Performed By: #### LIPID, CMP #### [facility] [address] [address] [address] Wili Cardona Potassium [Moles/Vol] 5.3 mmol/L Critically high 3.5-5.1 [facility] Comment on above: Performed By: #### LIPID, CMP #### [facility] [address] [address] [address] Wili Cardona Protein [Mass/Vol] 6.6 g/dL Normal 6.4-8.2 [facility] Comment on above: Performed By: #### LIPID, CMP #### [facility] [address] [address] [address] Wili Cardona Sodium [Moles/Vol] 140 mmol/L Normal 136-145 [facility] Comment on above: Performed By: #### LIPID, CMP #### [facility] [address] [address] [address] Wili Cardona Urea nitrogen [Mass/Vol] 21.0 mg/dL Critically high 7.0-18.0 [facility] Comment on above: Performed By: #### LIPID, CMP #### [facility] [address] [address] [address] Wili Cardona Urea nitrogen/Creatin ine [Mass ratio] 18.6 mg/mg Normal [facility] Comment on above: Performed By: #### LIPID, CMP #### [facility] [address] [address] [address] Wili Cardona Ambulatory Clinical Summaryo n 09-03-2021 Ambulatory Clinical Summary {[id number]}CD:[id number] Normal [facility] Patient Educationon 09-03-20 Patient Education Urology Benign [...] Follow these instructions at home: ? Take kegd-zfy-mjaqsmw and prescription medicines only as told by [...] You d (more content not included)... Normal [facility] Urology Office/Clinic Noteon 09-03-2021 Urology Office/Clinic Note [...] post transurethral resection of the prostate in 2016. Today states he is voiding without any [...] Urnls Dip Stick Auto w/o Microscopy POC 29847 2. Nocturia (R35.1: Nocturia) 1-2x intermittent Ordered: PSA Total Urnls Dip Stick Auto w/o Microscopy POC 37333 3. Urinary hesitancy (R39.11: Hesitancy of micturition) Pt states that early in the mornings he has a problem getting the stream started, but he has the urge. Ordered: PSA Total I have reviewed the previous health record information and history for this patient from Dr. Harrell Follow-up With When Contact Information Flaco Guzman MD, Jadon Norris URO In 1 year 09/03/[address] [facility] [address] [place] [address]- Additional Instructions: PSA Patient Education Benign Prostatic [...] oral ta (more content not included)... Normal [facility] Comment on above: Result Comment: Electronically Signed By : Flaco Guzman MD, Jadon Norris\.br\Date and Time Signed: 09/03/21 12:42 EST\.br\Electronically Co-Signed By: Le Fernandes MA\.br\Date and Time Co-Signed: 09/03/21 12:23 EST BASIC METABOLIC PANELon 10-0 Calcium 9.0 mg/dL Normal 8.6-10.3 [facility] Comment on above: Order Comment: No: Do not add to previou s draw Performed By: #### 1 0070, 97654, [id number] ####[facility] [facility] [place] [address], [facility] Chloride 102 mmol/L Normal 98-107 [facility] Comment on above: Order Comment: No: Do not add to previou s draw Performed By: #### 1 0070, 41513, 04895 ####[facility] [place] [address], [facility] CO2 28 mmol/L Normal 21-31 [facility] Comment on above: Order Comment: No: Do not add to previou s draw Performed By: #### 1 0070, 67683, 47802 ####[facility] [facility] [place] [address], [facility] Creatinine 1.17 mg/dL Normal 0.70-1.30 [facility] Comment on above: Order Comment: No: Do not add to previou s draw Performed By: #### 1 0070, 88813, 25065 ####[facility] [place] [address], [facility] eGFR (black) mL/min/{1.73_m2} Normal >60 [facility] Comment on above: Order Comment: No: Do not add to previou s draw Result Comment: Calc ulation may not be valid for patients over 70 years Performed By: #### 1 0070, 28275, 14917 ####[facility] [place] [address], [facility] eGFR (non-black) mL/min/{1.73_m2} Normal >60 [facility] Comment on above: Order Comment: No: Do not add to previou s draw Result Comment: Calc ulation may not be valid for patients over 70 years Performed By: #### 1 0070, 52116, 98227 ####[facility] [facility] [place] [address], [facility] Glucose mass conc 87 mg/dL Normal 70-100 [facility] Comment on above: Order Comment: No: Do not add to previou s draw Performed By: #### 1 0070, 10761, 04011 ####[facility] [place] [address], [facility] Potassium molar conc 4.3 mmol/L Normal 3.5-5.1 [facility] Comment on above: Order Comment: No: Do not add to previou s draw Performed By: #### 1 0070, 91665, 18930 ####[facility] [address], [facility] Sodium 136 mmol/L Normal 136-145 [facility] Comment on above: Order Comment: No: Do not add to previou s draw Performed By: #### 1 0070, 61222, 95644 ####[facility] Urea nitrogen 15 mg/dL Normal 7-25 [facility] Comment on above: Order Comment: No: Do not add to previou s draw Performed By: #### 1 0070, 21652, 02520 ####[facility] Cardiovascular Lab Reporton 06-12-[address] [facility] Patient Name: Dylon Francis [facility] MR #: [id number] Physician: Eduard Wang M.D.Medicine Service Date: 06/11/2017Division of Birthdate: 4Cardiology Room #: 3AB [id number] CardiovascularServ[place]Stephen [place] [address]Phone Fax Cardiovascular Laboratory ReportCARDIAC CATHETERIZATION REPORTINDICATION:Dylon Francis [...] Hesigned informed consent. He was brought to cath lab technologist in a fasting state.The Cesar's test was [...] micropuncture catheterfollowed by a dilator of a 5-Cameroonian pinnacle sheath. Eventually, we wereable to overcome the subcutaneous tissue and advance the 5-Cameroonian pinnaclesheath and secure it in place.Using the angled Glidewire, the wire was advanced across the previouslyplaced aortic stent graft intraluminally and this allowed tracking of5-Cameroonian diagnostic catheters. Bilateral selective coronary angiographywas then performed using a 5-Cameroonian JL4 and AR modified diagnosticcatheters. Angiography was performed in multiple views.Heparin was administered intravenously and therapeutic ACT confirmed duringthe procedure. A 5-Cameroonian XB3.5 guiding catheter was advanced and used toengage the left main coronary ostium. A Standard Treasury[place] wire was advanced intothe distal ramus vessel. [...] left femoralarteriotomy site was managed with a 6-Cameroonian Angio-Seal device with goodhemostasis. He tolerated the [...] 06/11/2017/07:38 P/Eduard Marcelo M.D.Date Trans: 06/12/2017 04:56 P/mmoDN_JN:[id number]: Charlie Stark M.D. [address] [facility] [address] Normal [facility] POC GLUCOSE LABon 06-12-2017 Glucose mass conc 82 mg/dL Normal 70-100 [facility] Comment on above: Performed By: #### 88368, 39435, 71301 # ###[facility] [place] [address], [facility] Glucose mass conc 146 mg/dL High 70-100 [facility] Comment on above: Performed By: #### 14553, 03147, 29124 # ###[facility] [place] [address], [facility] BASIC METABOLIC PANELon 10-0 Calcium 8.5 mg/dL Low 8.6-10.3 [facility] Comment on above: Order Comment: No: Do not add to previou s draw Performed By: #### 5 6101 ####[facility] [place] [address], [place] Chloride 104 mmol/L Normal 98-107 [facility] Comment on above: Order Comment: No: Do not add to previou s draw Performed By: #### 5 6101 ####[facility] [place] [address], [place] CO2 28 mmol/L Normal 21-31 [facility] Comment on above: Order Comment: No: Do not add to previou s draw Performed By: #### 5 6101 ####[facility] [place] [address], [place] Creatinine 1.29 mg/dL Normal 0.70-1.30 [facility] Comment on above: Order Comment: No: Do not add to previou s draw Performed By: #### 5 6101 ####[facility] [place] [address], [facility] eGFR (black) mL/min/{1.73_m2} Normal >60 [facility] Comment on above: Order Comment: No: Do not add to previou s draw Result Comment: Calc ulation may not be valid for patients over 70 years Performed By: #### 5 6101 ####[facility] [place] [address], [facility] eGFR (non-black) 55 ml/min/1.73sq m Abnormal >60 [facility] Comment on above: Order Comment: No: Do not add to previou s draw Result Comment: Calc ulation may not be valid for patients over 70 years Performed By: #### 5 6101 ####[facility] [place] [address], [facility] Glucose mass conc 76 mg/dL Normal 70-100 [facility] Comment on above: Order Comment: No: Do not add to previou s draw Performed By: #### 5 6101 ####[facility] [place] [address], [place] Potassium molar conc 4.0 mmol/L Normal 3.5-5.1 [facility] Comment on above: Order Comment: No: Do not add to previou s draw Performed By: #### 5 6101 ####[facility] [place] [address], [place] Sodium 139 mmol/L Normal 136-145 [facility] Comment on above: Order Comment: No: Do not add to previou s draw Performed By: #### 5 6101 ####[facility] [place] [address], [place] Urea nitrogen 25 mg/dL Normal 7-25 [facility] Comment on above: Order Comment: No: Do not add to previou s draw Performed By: #### 5 6101 ####[facility] [facility] [place] [address], [facility] POC GLUCOSE LABon 06-11-2017 Glucose mass conc 70 mg/dL Normal 70-100 [facility] Comment on above: Performed By: #### 24348, 42258, 37357 # ###[facility] [facility] [place] [address], [facility] Glucose mass conc 57 mg/dL Low 70-100 [facility] Comment on above: Performed By: #### 51522 ####[facility] [facility] [place] [address], [facility] Glucose mass conc 93 mg/dL Normal 70-100 [facility] Comment on above: Performed By: #### 10645 ####[facility] [facility] [place] [address], [facility] Glucose mass conc 64 mg/dL Low 70-100 [facility] Comment on above: Performed By: #### 07293 ####[facility] [facility] [place] [address], [facility] Glucose mass conc 75 mg/dL Normal 70-100 [facility] Comment on above: Performed By: #### 70958 ####[facility] [facility].[address] PROTHROMBIN TIMEon 7 INR Coag RelTime (PPP) 1.11 {INR} Normal 0.91-1.16 [facility] Comment on above: Order Comment: No: [...] OF ACTION, CLINICALEFFECTIVENESS, AND OPTIMAL THERAPEUTIC RANGE. [id number];108:231S-246S. Performed By: #### 5 6101 ####[facility] Prothrombin time (PT) Coag time (PPP) 14.4 s Normal 12.3-14.8 [facility] Comment on above: Order Comment: No: Do not add to previou s draw Result Comment: ALL RESULTS MUST BE INTERPRETED WITH RESPECT TO BLOOD DRAWING ARTIFACTOR DILUTION ERROR OF ANTICOAGULANT AT THE TIME OF SAMPLING. Performed By: #### 5 6101 ####[facility] [facility].[address] BASIC METABOLIC PANELon 10-0 Calcium 9.2 mg/dL Normal 8.6-10.3 [facility] Comment on above: Order Comment: No: Do not add to previou s draw Performed By: #### 5 6101 ####[facility] [facility] [place] [address], [facility] Chloride 100 mmol/L Normal 98-107 [facility] Comment on above: Order Comment: No: Do not add to previou s draw Performed By: #### 5 6101 ####[facility] [place] [address], [facility] CO2 29 mmol/L Normal 21-31 [facility] Comment on above: Order Comment: No: Do not add to previou s draw Performed By: #### 5 6101 ####[facility] [place] [address], [facility] Creatinine 1.56 mg/dL High 0.70-1.30 [facility] Comment on above: Order Comment: No: Do not add to previou s draw Performed By: #### 5 6101 ####[facility] [place] [address], [facility] eGFR (black) 53 ml/min/1.73sq m Abnormal >60 [facility] Comment on above: Order Comment: No: Do not add to previou s draw Result Comment: Calc ulation may not be valid for patients over 70 years Performed By: #### 5 6101 ####[facility] [place] [address], [facility] eGFR (non-black) 44 ml/min/1.73sq m Abnormal >60 [facility] Comment on above: Order Comment: No: Do not add to previou s draw Result Comment: Calc ulation may not be valid for patients over 70 years Performed By: #### 5 6101 ####[facility] [place] [address], [facility] Glucose mass conc 88 mg/dL Normal 70-100 [facility] Comment on above: Order Comment: No: Do not add to previou s draw Performed By: #### 5 6101 ####[facility] [place] [address], [facility] Potassium molar conc 4.3 mmol/L Normal 3.5-5.1 [facility] Comment on above: Order Comment: No: Do not add to previou s draw Performed By: #### 5 6101 ####[facility] [place] [address], [facility] Sodium 138 mmol/L Normal 136-145 [facility] Comment on above: Order Comment: No: Do not add to previou s draw Performed By: #### 5 6101 ####[facility] [place] [address], [facility] Urea nitrogen 29 mg/dL High 7-25 [facility] Comment on above: Order Comment: No: Do not add to previou s draw Performed By: #### 5 6101 ####[facility] CBC W/DIFFon 06-10-2017 Basophils Auto #/vol (Bld) 0.4 % Normal 0.0-2.0 [facility] Comment on above: Order Comment: No: Do not add to previou s draw Performed By: #### 5 6101 ####[facility] Eosinophils/100 leukocytes 2.1 % Normal 0.0-5.0 [facility] Comment on above: Order Comment: No: Do not add to previou s draw Performed By: #### 5 6101 ####[facility] Erythrocyte distribution width Auto Ratio (RBC) 14.9 % Normal 11.5-16.9 [facility] Comment on above: Order Comment: No: Do not add to previou s draw Performed By: #### 5 6101 ####[facility] [place] [address], [facility] Erythrocytes (RBC) 4.60 mill/mm3 Normal 4.30-5.90 [facility] Comment on above: Order Comment: No: Do not add to previou s draw Performed By: #### 5 6101 ####[facility] Hematocrit (HCT) 40.0 % Normal 39.0-55.0 [facility] Comment on above: Order Comment: No: Do not add to previou s draw Performed By: #### 5 6101 ####[facility] [facility] Hemoglobin mass conc (Bld) 12.9 g/dL Low 13.9-16.3 [facility] Comment on above: Order Comment: No: Do not add to previou s draw Performed By: #### 5 6101 ####[facility] Lymphocytes/100 leukocytes 21.0 % Normal 20.0-40.0 [facility] Comment on above: Order Comment: No: Do not add to previou s draw Performed By: #### 5 6101 ####[facility] MCH 27.9 pg Normal 24.0-32.0 [facility] Comment on above: Order Comment: No: Do not add to previou s draw Performed By: #### 5 6101 ####[facility] [facility].[address] MCHC mass conc (RBC) 32.1 g/dL Normal 32.0-36.0 [facility] Comment on above: Order Comment: No: Do not add to previou s draw Performed By: #### 5 6101 ####[facility] [facility].[address] MCV 87.0 fL Normal 80.0-100.0 [facility] Comment on above: Order Comment: No: Do not add to previou s draw Performed By: #### 5 6101 ####[facility] [facility].[address] METHOD Normal RBC Morphology Normal [facility] Comment on above: Order Comment: No: Do not add to previou s draw Performed By: #### 5 6101 ####[facility] [place] [address], [facility] MONOS 6.6 % Normal 2-8 [facility] Comment on above: Order Comment: No: Do not add to previou s draw Performed By: #### 5 6101 ####[facility] [place] [address], [facility] Neutrophils/100 leukocytes 69.9 % Normal 50-70 [facility] Comment on above: Order Comment: No: Do not add to previou s draw Performed By: #### 5 6101 ####[facility] [facility] [place] [address], [facility] PLAT CNT 210 Thou/mm3 Normal 100-400 [facility] Comment on above: Order Comment: No: Do not add to previou s draw Performed By: #### 5 6101 ####[facility] [facility] [place] [address], [facility] WBC (Leukocytes) 8.7 Thou/mm3 Normal 4.0-10.0 [facility] Comment on above: Order Comment: No: Do not add to previou s draw Performed By: #### 5 6101 ####[facility] [facility].[address] POC GLUCOSE LABon 06-10-2017 Glucose mass conc 97 mg/dL Normal 70-100 [facility] Comment on above: Performed By: #### 87753 ####[facility] [facility].[address] PROTHROMBIN TIMEon 7 INR Coag RelTime (PPP) 1.10 {INR} Normal 0.91-1.16 [facility] Comment on above: Order Comment: No: [...] OF ACTION, CLINICALEFFECTIVENESS, AND OPTIMAL THERAPEUTIC RANGE. [id number];108:231S-246S. Performed By: #### 5 6101 ####[place] [address] [address] Prothrombin time (PT) Coag time (PPP) 14.3 s Normal 12.3-14.8 [facility] Comment on above: Order Comment: No: Do not add to previou s draw Result Comment: ALL RESULTS MUST BE INTERPRETED WITH RESPECT TO BLOOD DRAWING ARTIFACTOR DILUTION ERROR OF ANTICOAGULANT AT THE TIME OF SAMPLING. Performed By: #### 5 6101 ####[facility] Discharge Summaryon 05-18-20 17 Discharge Summary MR#: [id number] [facility] Admitted: 05/13/2017 [...] placement in 2006. 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 Iron deficiency anemia.PROCEDURE:1. Dual chamber right atrium and right ventricular AICD on 05/14/2017.2. Right ventricular lead repositioning on 05/15/2017.HPI: Mr. Francis is a 71 years old male who was transferred from [facility] with a presyncopal episode and fatigue. His family reported thathe was dizzy, lightheaded and incoherent after dinner. EKG at [facility] showed high-degree AV block with subsequent bradycardia in the 30sto 40s. There was a concern of TIA given the episode of incoherence.However, no focal neurological findings were detected and brain CT did notshow any bleeding or ischemic changes. The patient then developedhigh-grade, second-degree AV block and complete heart block intermittently.The patient reported similar presyncopal episode of fatigue in the past.He was transferred to [facility] with symptomatic high second-degree AV block forpacemaker insertion.During hospital stay to [facility], the patient had episode of dizziness [...] Dict: 05/17/2017/08:48 P/SCAR Gutierrezate Trans: 05/18/2017 02:15 A/EuniceN_JN:[id number]: Charlie Stark M.D. [address] [place] [address] [place] [facility] Cardiovascular Lab Reporton 05-17-[address] [facility] Patient Name: Dylon Francis [facility] MR #: [id number] Physician: Dorcas Chin,Department of M.D.Medicine Service Date: 05/15/2017Division of Birthdate: 4Cardiology Room #: 3AB [id number] [place]ovascular[place] [address] [place], [place] [address]Vaudz Fax Cardiovascular Laboratory ReportPROCEDURE: Revision of RV [...] (RVlead) and a stylet with a 3/4 teller curve was forwarded down the lead andthe [...] lead.2. RV lead, Biotronik Solia S53.3. Model #87735, serial #[id number]. RV sensing was 12 mV.5. RV pacing threshold was 0.4 V at 0.4 milliseconds.6. RV lead impedance 682 ohms.7. RA lead retained and capped inside the port of the pacer.8. The check showed a P-wave of 3.4 mV, a threshold of 0.8 V at 0.4 milliseconds and the impedance was 448 ohms.9. This is a Biotronik Solia S45 cm, model #673177 and serial #[id number].Retained pulse generator model Eluna 8 DR-T, model #922480 and serial#[id number].FINAL CONCLUSIONS:1. Successful repositioning of RV lead.2. We [...] 05/16/2017/05:30 P/Dorcas Chin M.D.Date Trans: 05/17/2017 06:31 A/mmoDN_JN:[id number]: Charlie Stark M.D. [address] [facility] [address] Normal [facility] BASIC METABOLIC PANELon 09-0 Calcium 8.4 mg/dL Low 8.6-10.3 [facility] Comment on above: Order Comment: No: Do not add to previou s draw Performed By: #### 5 0608 ####[place] [address] [facility] [place] [address], [facility] Chloride 101 mmol/L Normal 98-107 [facility] Comment on above: Order Comment: No: Do not add to previou s draw Performed By: #### 5 0608 ####[facility] [facility] [place] [address], [facility] CO2 31 mmol/L Normal 21-31 [facility] Comment on above: Order Comment: No: Do not add to previou s draw Performed By: #### 5 0608 ####[facility] [facility] [place] [address], [facility] Creatinine 1.39 mg/dL High 0.70-1.30 [facility] Comment on above: Order Comment: No: Do not add to previou s draw Performed By: #### 5 0608 ####[facility] [place] [address], [facility] eGFR (black) mL/min/{1.73_m2} Normal >60 [facility] Comment on above: Order Comment: No: Do not add to previou s draw Result Comment: Calc ulation may not be valid for patients over 70 years Performed By: #### 5 0608 ####[facility] [place] [address], [facility] eGFR (non-black) 50 ml/min/1.73sq m Abnormal >60 [facility] Comment on above: Order Comment: No: Do not add to previou s draw Result Comment: Calc ulation may not be valid for patients over 70 years Performed By: #### 5 0608 ####[facility] [place] [address], [facility] Glucose mass conc 70 mg/dL Normal 70-100 [facility] Comment on above: Order Comment: No: Do not add to previou s draw Performed By: #### 5 0608 ####[facility] [place] [address], [facility] Potassium molar conc 4.0 mmol/L Normal 3.5-5.1 [facility] Comment on above: Order Comment: No: Do not add to previou s draw Performed By: #### 5 0608 ####[facility] [place] [address], [facility] Sodium 137 mmol/L Normal 136-145 [facility] Comment on above: Order Comment: No: Do not add to previou s draw Performed By: #### 5 0608 ####[facility] [place] [address], [facility] Urea nitrogen 20 mg/dL Normal 7-25 [facility] Comment on above: Order Comment: No: Do not add to previou s draw Performed By: #### 5 0608 ####[facility] CBC W/DIFFon 05-16-2017 Basophils Auto #/vol (Bld) 0.5 % Normal 0.0-2.0 [facility] Comment on above: Order Comment: No: Do not add to previou s draw Performed By: #### 5 0608 ####[facility] [facility].[address] Eosinophils/100 leukocytes 3.3 % Normal 0.0-5.0 [facility] Comment on above: Order Comment: No: Do not add to previou s draw Performed By: #### 5 0608 ####[facility] [facility].[address] Erythrocyte distribution width Auto Ratio (RBC) 15.0 % Normal 11.5-16.9 [facility] Comment on above: Order Comment: No: Do not add to previou s draw Performed By: #### 5 0608 ####[facility] [facility].[address] Erythrocytes (RBC) 4.59 mill/mm3 Normal 4.30-5.90 [facility] Comment on above: Order Comment: No: Do not add to previou s draw Performed By: #### 5 0608 ####[facility] [facility].[address] Hematocrit (HCT) 40.0 % Normal 39.0-55.0 [facility] Comment on above: Order Comment: No: Do not add to previou s draw Performed By: #### 5 0608 ####[facility] Hemoglobin mass conc (Bld) 12.8 g/dL Low 13.9-16.3 [facility] Comment on above: Order Comment: No: Do not add to previou s draw Performed By: #### 5 0608 ####[facility] Lymphocytes/100 leukocytes 20.3 % Normal 20.0-40.0 [facility] Comment on above: Order Comment: No: Do not add to previou s draw Performed By: #### 5 0608 ####[facility] MCH 27.9 pg Normal 24.0-32.0 [facility] Comment on above: Order Comment: No: Do not add to previou s draw Performed By: #### 5 0608 ####[facility] MCHC mass conc (RBC) 32.1 g/dL Normal 32.0-36.0 [facility] Comment on above: Order Comment: No: Do not add to previou s draw Performed By: #### 5 0608 ####[facility] [facility].[address] MCV 87.2 fL Normal 80.0-100.0 [facility] Comment on above: Order Comment: No: Do not add to previou s draw Performed By: #### 5 0608 ####[facility] [facility].[address] METHOD Normal [facility] Comment on above: Order Comment: No: Do not add to previou s draw Result Comment: Auto mated differential performedNormal RBC Morphology Performed By: #### 5 0608 ####[facility] MONOS 8.2 % High 2-8 [facility] Comment on above: Order Comment: No: Do not add to previou s draw Performed By: #### 5 0608 ####[facility] Neutrophils/100 leukocytes 67.7 % Normal 50-70 [facility] Comment on above: Order Comment: No: Do not add to previou s draw Performed By: #### 5 0608 ####[place] [address], [facility] PLAT CNT 183 Thou/mm3 Normal 100-400 [facility] Comment on above: Order Comment: No: Do not add to previou s draw Performed By: #### 5 0608 ####[address] WBC (Leukocytes) 5.7 Thou/mm3 Normal 4.0-10.0 [facility] Comment on above: Order Comment: No: Do not add to previou s draw Performed By: #### 5 0608 ####[address] POC GLUCOSE LABon 05-16-2017 Glucose mass conc 120 mg/dL High 70-100 [facility] Comment on above: Performed By: #### [address]240 ####[address] Glucose mass conc 71 mg/dL Normal 70-100 [facility] Comment on above: Performed By: #### 31254 ####[address] PORTABLE CHEST 1 VIEWon PORTABLE CHEST 1 VIEW [facility] Ullroszwk[address] [place] [address] ========Patient Name: DYLON FRANCIS : 1945Sex: MAge: Race: WhiteMRN: [id number]. Location: [id number] Status: IVisit #: [id number] Date: 05/16/2017 8:00:00 AMCompleted Date: 05/16/2017 07:24 AMRequesting Provider: DIAZ TERAN Attending Provider: ROSEMARY MONTGOMERY Report Copy To: Signs & Symptoms: Post Pacemaker/AICD PlacementHistory: Patient history not availableComments: Check Pacemaker/AICD Lead PositionExam: PORTABLE CHEST 1 VIEWAccession #: [id number] PORTABLE CHEST 1 VIEW 05/16/2017 7:24 AM [...] findings. Electronically signed by:Matthew Serrano. Transcribed by: [email or web address], User Resident: GAIL GARCIAElectronically Signed by: MATTHEW SERRANO @ 05/16/2017 10:04 AMI personally read this/these film(s) with this resident Normal [facility] Comment on above: Order Comment: No: Do not add to previou s draw PROTHROMBIN TIMEon 7 INR Coag RelTime (PPP) 1.18 {INR} High 0.91-1.16 [facility] Comment on above: Order Comment: No: [...] OF ACTION, CLINICALEFFECTIVENESS, AND OPTIMAL THERAPEUTIC RANGE. [id number];108:231S-246S. Performed By: #### 5 0608 ####[facility] [facility].[address] Prothrombin time (PT) Coag time (PPP) 15.1 s High 12.3-14.8 [facility] Comment on above: Order Comment: No: Do not add to previou s draw Result Comment: ALL RESULTS MUST BE INTERPRETED WITH RESPECT TO BLOOD DRAWING ARTIFACTOR DILUTION ERROR OF ANTICOAGULANT AT THE TIME OF SAMPLING. Performed By: #### 5 0608 ####[facility] [facility].[address] APTTon 05-15-2017 aPTT 31.8 s Normal 25.0-35.0 [facility] Comment on above: Order Comment: if [...] THIS PURPOSE. Performed By: #### 5 6101, 51879 ####[facility] BASIC METABOLIC PANELon 09-0 Calcium 8.8 mg/dL Normal 8.6-10.3 [facility] Comment on above: Order Comment: if not already doneNo: Do not add to previous draw Performed By: #### 5 6101, 35934 ####[place] [address] [facility].[address] Chloride 103 mmol/L Normal 98-107 [facility] Comment on above: Order Comment: if not already doneNo: Do not add to previous draw Performed By: #### 5 6101, 75316 ####[place] [address] [facility].[address] CO2 29 mmol/L Normal 21-31 [facility] Comment on above: Order Comment: if not already doneNo: Do not add to previous draw Performed By: #### 5 6101, 15362 ####[place] [address] [facility].[address] Creatinine 1.71 mg/dL High 0.70-1.30 [facility] Comment on above: Order Comment: if not already doneNo: Do not add to previous draw Performed By: #### 5 6101, 27692 ####[place] [address] [facility].[address] eGFR (black) 48 ml/min/1.73sq m Abnormal >60 [facility] Comment on above: Order Comment: if not already doneNo: Do not add to previous draw Result Comment: Calc ulation may not be valid for patients over 70 years Performed By: #### 5 6101, 24795 ####[facility] eGFR (non-black) 39 ml/min/1.73sq m Abnormal >60 [facility] Comment on above: Order Comment: if not already doneNo: Do not add to previous draw Result Comment: Calc ulation may not be valid for patients over 70 years Performed By: #### 5 6101, 22338 ####[facility] [place] [address], [facility] Glucose mass conc 94 mg/dL Normal 70-100 [facility] Comment on above: Order Comment: if not already doneNo: Do not add to previous draw Performed By: #### 5 610, 75340 ####[facility] [facility].[address] Potassium molar conc 4.9 mmol/L Normal 3.5-5.1 [facility] Comment on above: Order Comment: if not already doneNo: Do not add to previous draw Performed By: #### 5 610, 81579 ####[facility] [facility] [place] [address], [facility] Sodium 138 mmol/L Normal 136-145 [facility] Comment on above: Order Comment: if not already doneNo: Do not add to previous draw Performed By: #### 5 6101, 74719 ####[facility] [facility] [place] [address], [facility] Urea nitrogen 24 mg/dL Normal 7-25 [facility] Comment on above: Order Comment: if not already doneNo: Do not add to previous draw Performed By: #### 5 610, 21576 ####[facility] [place] [address], [facility] CBC W/DIFFon 05-15-2017 Basophils Auto #/vol (Bld) 0.4 % Normal 0.0-2.0 [facility] Comment on above: Order Comment: Unknown Performed By: #### 5 0103 ####[facility] [place] [address], [facility] Eosinophils/100 leukocytes 1.8 % Normal 0.0-5.0 [facility] Comment on above: Order Comment: Unknown Performed By: #### 5 0103 ####[facility] [place] [address], [facility] Erythrocyte distribution width Auto Ratio (RBC) 14.9 % Normal 11.5-16.9 [facility] Comment on above: Order Comment: Unknown Performed By: #### 5 0103 ####[facility] [place] [address], [facility] Erythrocytes (RBC) 4.72 mill/mm3 Normal 4.30-5.90 [facility] Comment on above: Order Comment: Unknown Performed By: #### 5 0103 ####[facility] [place] [address], [facility] Hematocrit (HCT) 41.0 % Normal 39.0-55.0 [facility] Comment on above: Order Comment: Unknown Performed By: #### 5 0103 ####[facility] [place] [address], [facility] Hemoglobin mass conc (Bld) 13.1 g/dL Low 13.9-16.3 [facility] Comment on above: Order Comment: Unknown Performed By: #### 5 0103 ####[facility] [place] [address], [facility] Lymphocytes/100 leukocytes 14.3 % Low 20.0-40.0 [facility] Comment on above: Order Comment: Unknown Performed By: #### 5 3 ####[facility] [place] [address], [facility] MCH 27.7 pg Normal 24.0-32.0 [facility] Comment on above: Order Comment: Unknown Performed By: #### 5 0103 ####[facility] [place] [address], [facility] MCHC mass conc (RBC) 31.9 g/dL Low 32.0-36.0 [facility] Comment on above: Order Comment: Unknown Performed By: #### 5 0103 ####[facility] [place] [address], [facility] MCV 86.8 fL Normal 80.0-100.0 [facility] Comment on above: Order Comment: Unknown Performed By: #### 5 0103 ####[facility] [place] [address], [facility] METHOD Normal [facility] Comment on above: Order Comment: Unknown Result Comment: Auto mated differential performedNormal RBC Morphology Performed By: #### 5 0103 ####[facility] [place] [address], [facility] MONOS 7.0 % Normal 2-8 [facility] Comment on above: Order Comment: Unknown Performed By: #### 5 0103 ####[facility] [place] [address], [facility] Neutrophils/100 leukocytes 76.5 % High 50-70 [facility] Comment on above: Order Comment: Unknown Performed By: #### 5 0103 ####[facility] [place] [address], [facility] PLAT CNT 204 Thou/mm3 Normal 100-400 [facility] Comment on above: Order Comment: Unknown Performed By: #### 5 0103 ####[facility] [place] [address], [facility] WBC (Leukocytes) 6.1 Thou/mm3 Normal 4.0-10.0 [facility] Comment on above: Order Comment: Unknown Performed By: #### 5 3 ####[facility] [facility] [address] CHEST AND LATERALon 05-15-20 CHEST AND LATERAL [facility] Vguumwsyp[address] [place] [address] ========Patient Name: DYLON FRANCIS : 1945Sex: MAge: Race: WhiteMRN: [id number]. Location: [id number] Status: IVisit #: [id number] Date: 05/15/2017 7:00:00 AMCompleted Date: 05/15/2017 08:35 AMRequesting Provider: VANDANA BLANCO Attending Provider: ROSEMARY MONTGOMERY Report Copy To: Signs & Symptoms: Post Pacemaker/AICD PlacementHistory: Patient history not availableComments: Check Pacemaker/AICD Lead Position, Chest X-ray PA \EANDE\ LAT in Dept ;DO NOT lift affected arm above shoulder. S/P pacemaker/ICD implant. Verify lead placementExam: CHEST AND LATERALAccession #: [id number] CHEST AND LATERAL 05/15/2017 8:35 AM EDT [...] lobe. Electronically signed by:Malika Mendiola. Transcribed by: [email or web address], User Resident: Electronically Signed by: MALIKA MENDIOLA @ 05/15/2017 10:18 AM Normal [facility] Comment on above: Order Comment: if not already doneNo: Do not add to previous draw Cardiovascular Lab Reporton 05-15-[address] [facility] Patient Name: Dylon Francis [facility] MR #: [id number] Physician: DINAA Gtzepartment of Service Date: 05/14/2017Medicine Birthdate: 4Division of Room #: 3AB [id number] CardiovascularServicNocona General Hospitaler[address] [place] [address] 74935Bbhpz Fax Cardiovascular Laboratory ReportPROCEDURE: Dual-chamber pacemaker implantation.RAILWAY EQUIPMENT OPERATOR: Vandana Blanco M.D.REASON FOR THE PROCEDURE: Complete [...] andhyponatremia, who presented to the hospital at [place] because he had beenhaving presyncopal episodes and extreme fatigue. His family thought he hada stroke and on 05/13/2017, he was brought to [facility]. The 1st EKG showedhigh-degree AV block with subsequent bradycardia in the 30s to 40s. Hethen developed high-grade second-degree AV block and complete [...] aJ-wire. The sheath was then removed and 6-Cameroonian sheath was implanted overthe J wire. A double wiring was done. The 6-Cameroonian sheath was removed.One of the wires was preserved for later, the other wire had implantationof a new 6-Cameroonian lead. After removal of the wire, the ventricular leadwas placed in the RV mid septum with excellent parameters. Subsequently,the sheath was torn, the lead was tied into place. The atrial lead wasthen implanted through a 6-Cameroonian sheath that was placed over the otherJ-wire. [...] are as follows. The device is a [employer] 8 DRT Pro MRI, model #412141, the serial #[id number]. The date of implant is 05/14/2017. The atrial lead is a Biotronik Solia S 45 cm, serial #[id number]. The threshold for the atrial lead is 1.4 V at 0.4 milliseconds, the P wave was 4.4 mV and the impedance is 448 ohms. The ventricular lead is a Biot[employer] Solia S 53, serial #[id number], model #513932. The threshold for the ventricular lead is [...] Dict: 05/14/2017/05:38 P/Sindy Gtz Trans: 05/15/2017 02:03 P/mmoDN_JN:[id number]: Charlie Stark M.D. [address] [place] [address] Normal [facility] MAGNESIUM BLOODon 05-15-2017 Magnesium 2.2 mg/dL Normal 1.9-2.7 [facility] Comment on above: Order Comment: if not already doneNo: Do not add to previous draw Performed By: #### 5 6101, 09639 ####[place] [address] [place] [address], [facility] PHOSPHORUS BLOODon 7 Phosphate 3.2 mg/dL Normal 2.5-5.0 [facility] Comment on above: Order Comment: Unknown Performed By: #### 4 1000, 69079, 00556 ####[place] [address] POC GLUCOSE LABon 05-15-2017 Glucose mass conc 84 mg/dL Normal 70-100 [facility] Comment on above: Performed By: #### 18115 ####[place] [address], [facility] Glucose mass conc 72 mg/dL Normal 70-100 [facility] Comment on above: Performed By: #### 27514, 28372 ####[place] [address], [facility] Glucose mass conc 63 mg/dL Low 70-100 [facility] Comment on above: Performed By: #### 37102, 85475 ####[facility] [address] [place] [address], [facility] Glucose mass conc 60 mg/dL Low 70-100 [facility] Comment on above: Performed By: #### 16253, 80159 ####[facility] [address] [place] [address], [facility] Glucose mass conc 82 mg/dL Normal 70-100 [facility] Comment on above: Performed By: #### 71534, 93411 ####[facility] [facility] [place] [address], [facility] Glucose mass conc 68 mg/dL Low 70-100 [facility] Comment on above: Performed By: #### 31968, 13156 ####[facility] [facility] [place] [address], [facility] Glucose mass conc 95 mg/dL Normal 70-100 [facility] Comment on above: Performed By: #### 56186 ####[facility] [place], [place] [address] [place] [address] PROTHROMBIN TIMEon 7 INR Coag RelTime (PPP) 1.34 {INR} High 0.91-1.16 [facility] Comment on above: Order Comment: if [...] OF ACTION, CLINICALEFFECTIVENESS, AND OPTIMAL THERAPEUTIC RANGE. [id number];108:231S-246S. Performed By: #### 5 6101, 59796 ####[facility] Prothrombin time (PT) Coag time (PPP) 16.7 s High 12.3-14.8 [facility] Comment on above: Order Comment: if not already doneNo: Do not add to previous draw Result Comment: ALL RESULTS MUST BE INTERPRETED WITH RESPECT TO BLOOD DRAWING ARTIFACTOR DILUTION ERROR OF ANTICOAGULANT AT THE TIME OF SAMPLING. Performed By: #### 5 6101, 60481 ####[facility] APTTon 05-14-2017 aPTT 33.2 s Normal 25.0-35.0 [facility] Comment on above: Order Comment: if [...] THIS PURPOSE. Performed By: #### 5 6101, 59621 ####[facility] [facility].[address] BASIC METABOLIC PANELon Calcium 8.9 mg/dL Normal 8.6-10.3 [facility] Comment on above: Order Comment: No: Do not add to previou s draw Performed By: #### 1 0070, 80811, 79779 ####[facility] [place] [address], [facility] Chloride 103 mmol/L Normal 98-107 [facility] Comment on above: Order Comment: No: Do not add to previou s draw Performed By: #### 1 0070, 95871, 95481 ####[facility] [place] [address], [facility] CO2 26 mmol/L Normal 21-31 [facility] Comment on above: Order Comment: No: Do not add to previou s draw Performed By: #### 1 0070, 81963, 03785 ####[facility] Creatinine 1.42 mg/dL High 0.70-1.30 [facility] Comment on above: Order Comment: No: Do not add to previou s draw Performed By: #### 1 0070, 80979, 87913 ####[facility]3000 [facility].[address] eGFR (black) 59 ml/min/1.73sq m Abnormal >60 [facility] Comment on above: Order Comment: No: Do not add to previou s draw Result Comment: Calc ulation may not be valid for patients over 70 years Performed By: #### 1 0070, 02705, 29180 ####[facility] [facility].[address] eGFR (non-black) 49 ml/min/1.73sq m Abnormal >60 [facility] Comment on above: Order Comment: No: Do not add to previou s draw Result Comment: Calc ulation may not be valid for patients over 70 years Performed By: #### 1 0070, 01895, 49674 ####[facility] [facility] [place] [address], [facility] Glucose mass conc 74 mg/dL Normal 70-100 [facility] Comment on above: Order Comment: No: Do not add to previou s draw Performed By: #### 1 0070, 51944, 81909 ####[facility] [facility] [place] [address], [facility] Potassium molar conc 4.3 mmol/L Normal 3.5-5.1 [facility] Comment on above: Order Comment: No: Do not add to previou s draw Performed By: #### 1 0070, 50593, 48391 ####[facility], [place] [address] [place] [address] Sodium 136 mmol/L Normal 136-145 [facility] Comment on above: Order Comment: No: Do not add to previou s draw Performed By: #### 1 0070, 60871, 23648 ####[facility] [place] [address], [facility] Urea nitrogen 24 mg/dL Normal 7-25 [facility] Comment on above: Order Comment: No: Do not add to previou s draw Performed By: #### 1 0070, 58298, 86039 ####[facility] CBC COMPLETE BLOOD COUNTon 0 05-14-2017 Erythrocyte distribution width Auto Ratio (RBC) 14.9 % Normal 11.5-16.9 [facility] Comment on above: Order Comment: No: Do not add to previou s draw Performed By: #### 5 0608 ####[facility] Erythrocytes (RBC) 4.51 mill/mm3 Normal 4.30-5.90 [facility] Comment on above: Order Comment: No: Do not add to previou s draw Performed By: #### 5 0608 ####[facility] [place] [address], [facility] Hematocrit (HCT) 39.1 % Normal 39.0-55.0 [facility] Comment on above: Order Comment: No: Do not add to previou s draw Performed By: #### 5 0608 ####[facility] [place] [address], [facility] Hemoglobin mass conc (Bld) 12.6 g/dL Low 13.9-16.3 [facility] Comment on above: Order Comment: No: Do not add to previou s draw Performed By: #### 5 0608 ####[facility] MCH 28.0 pg Normal 24.0-32.0 [facility] Comment on above: Order Comment: No: Do not add to previou s draw Performed By: #### 5 0608 ####[facility] MCHC mass conc (RBC) 32.3 g/dL Normal 32.0-36.0 [facility] Comment on above: Order Comment: No: Do not add to previou s draw Performed By: #### 5 0608 ####[facility] [facility].[address] MCV 86.9 fL Normal 80.0-100.0 [facility] Comment on above: Order Comment: No: Do not add to previou s draw Performed By: #### 5 0608 ####[facility] [facility].[address] PLAT CNT 210 Thou/mm3 Normal 100-400 [facility] Comment on above: Order Comment: No: Do not add to previou s draw Performed By: #### 5 0608 ####[facility] [facility].[address] WBC (Leukocytes) 6.3 Thou/mm3 Normal 4.0-10.0 [facility] Comment on above: Order Comment: No: Do not add to previou s draw Performed By: #### 5 0608 ####[facility] MAGNESIUM BLOODon 05-14-2017 Magnesium 2.1 mg/dL Normal 1.9-2.7 [facility] Comment on above: Order Comment: No: Do not add to previou s draw Performed By: #### 1 0070, 88227, 32427 ####[facility] [facility] [place] [address], [facility] PHOSPHORUS BLOODon 7 Phosphate 2.9 mg/dL Normal 2.5-5.0 [facility] Comment on above: Order Comment: No: Do not add to previou s draw Performed By: #### 1 0070, 51839, 95464 ####[facility] [facility] [place] [address], [facility] PROTHROMBIN TIMEon 7 INR Coag RelTime (PPP) 1.52 {INR} High 0.91-1.16 [facility] Comment on above: Order Comment: No: [...] OF ACTION, CLINICALEFFECTIVENESS, AND OPTIMAL THERAPEUTIC RANGE. [id number];108:231S-246S. Performed By: #### 5 6101 ####[facility] Prothrombin time (PT) Coag time (PPP) 18.5 s High 12.3-14.8 [facility] Comment on above: Order Comment: No: Do not add to previou s draw Result Comment: ALL RESULTS MUST BE INTERPRETED WITH RESPECT TO BLOOD DRAWING ARTIFACTOR DILUTION ERROR OF ANTICOAGULANT AT THE TIME OF SAMPLING. Performed By: #### 5 6101 ####[facility] [facility].[address] INR Coag RelTime (PPP) 1.58 {INR} High 0.91-1.16 [facility] Comment on above: Order Comment: if [...] OF ACTION, CLINICALEFFECTIVENESS, AND OPTIMAL THERAPEUTIC RANGE. [id number];108:231S-246S. Performed By: #### 5 6101, 77460 ####[facility] [facility].[address] Prothrombin time (PT) Coag time (PPP) 19.1 s High 12.3-14.8 [facility] Comment on above: Order Comment: if not already doneNo: Do not add to previous draw Result Comment: ALL RESULTS MUST BE INTERPRETED WITH RESPECT TO BLOOD DRAWING ARTIFACTOR DILUTION ERROR OF ANTICOAGULANT AT THE TIME OF SAMPLING. Performed By: #### 5 6101, 53529 ####[facility] [facility] [place] [address], [facility] Encounters Encounter Date Encounter Type Care Provider Facility Start: 04-13-2024 End: 04-13-2024 ambulatory [facility] Start: 02-19-2024 End: 02-19-2024 ambulatory [facility] Start: 12-23-2023 End: 12-23-2023 ambulatory [facility] Start: 09-29-2023 End: 09-29-2023 ambulatory [facility] Start: 08-24-2023 End: 08-24-2023 ambulatory [facility] Start: 01-05-2023 End: 02-04-2023 ambulatory GONSALEZ H [facility] Facility:[facility] Start: 12-08-2022 End: 01-02-2023 ambulatory GONSALEZ H [facility] Facility:[facility] Start: 11-05-2022 End: 12-05-2022 ambulatory GONSALEZ H [facility]AD Facility: Start: 10-08-2022 End: 11-05-2022 ambulatory GONSALEZ H [facility]AD Facility:[facility] Start: 09-08-2022 End: 10-08-2022 ambulatory GONSALEZ H [facility]AD Facility: Start: 08-26-2022 End: 08-27-2022 ambulatory CUCA MEJIA Facility:[facility] Start: 08-26-2022 End: 08-26-2022 Patient encounter procedure CUCA MEJIA [facility] Start: 08-25-2022 End: 08-26-[address] CHARLIE STARK . Facility:[facility] Start: 08-07-2022 End: 09-07-2022 ambulatory GONSALEZ H [facility]AD Facility:[facility] Start: 07-08-2022 End: 08-06-2022 ambulatory GONSALEZ H FAWWAD Facility:[facility]1 Start: 07-01-2022 End: 07-01-2022 ambulatory REGGIE SMART Facility:[facility] Start: 06-08-2022 End: 07-07-2022 ambulatory SHAIKH Jason FAYE Facility: Start: 05-08-2022 End: 06-07-2022 ambulatory SHAIKH Jason FAYE Facility:[facility] Start: 05-06-2022 End: 05-07-2022 ambulatory REGGIE SMART Facility:[facility] Start: 04-16-2022 End: 04-17-2022 ambulatory REGGIE SMART Facility:[facility] Start: 04-07-2022 End: 05-07-2022 ambulatory SHAIKH Jason FAYE Facility:[facility] Start: 03-07-2022 End: 04-04-2022 ambulatory SHAIKH Jason FAYE Facility: Start: 09-03-2021 End: 09-04-2021 ambulatory Charan HARRELL Facility:[facility] Start: 06-10-2017 End: 06-12-2017 Ambulatory TIGIST HUANG Facility:[facility] Start: 06-04-2017 End: 06-13-2017 Ambulatory PROVIDER UNKNOWN Facility:[facility] Start: 06-02-2017 End: 06-03-2017 Ambulatory DEFAULT PHYSICIAN Facility:[facility] Start: 05-14-2017 End: 05-16-2017 Evaluation and management of inpatient DORCAS CHIN Facility:[facility] Procedures Date Procedure Procedure Detail Performing Clinician Start: 08-25-2022 PSA screening SHAIKH MARTY MEI Comment on above: Performed By: #### P SAD #### [facility] [address] [place] [address] Dr. Wili Cardona Start: 05-15-2017 REVISION OF CARDIAC LEAD IN HEART, PERCUTANEOUS APPROACH DORCAS CHIN Start: 05-14-2017 INSERT PACE. DUAL CH AM IN CHEST SUBCU/FASCIA, OPEN ARIANA KARIM Start: 05-14-2017 INSERTION OF PACEMAK ER LEAD INTO R VENTRICLE, PERC APPROACH ARIANA KARIM Start: 05-14-2017 INSERTION OF PACEMAK ER LEAD INTO RIGHT ATRIUM, PERC APPROACH ARIANA KARIM Start: 03-12-2016 Transurethral prostatectomy CUCA MEJIA Start: 02-08-2016 Cystourethroscopy wi th dilation of urethral stricture CUCA JACKIE Start: 07-06-2013 Laser ablation of prostate CUCA MEJIA Amputation of finger , except thumb CUCA MEJIA Comment on above: Rt. hand pinky finge r Cataract surgery [facility] MARTINEZ RRY Circumcision [facility] MEJIA Colonoscopy [facility] MEJIA Implantation of card iac pacemaker CUCA MEJIA Placement of stent i n cardiac conduit CUCA MEJIA Procedure on back CUCA Ahn ERRFlavio Procedure on knee CUCA FARAH Tonsillectomy and adenoidectomy CUCA MEJIA Payers Date Payer Category Payer Medicare [id number] 1961 Medicare [id number] 1959 Private Health Insurance [id number] 1945 Unknown [id number] 2.16.8 [id number] 1945 Unknown [id number] 2.16.8 40.1.158135.3.579.2.727 1945 Unknown [id number] 2.16.84 0.1.981609.3.579.2.593 1945 Unknown [id number] 2.16.84 0.1.191127.3.579.2.593 1945 Unknown [id number] 2.16.84 0.1.058595.3.579.2.593 1943 Unknown [id number] 2.16.84 0.1.403091.3.579.2.593 1943 Unknown [id number] 2.16.84 0.1.815116.3.579.2.593 1945 Unknown [id number] 2.16.84 0.1.041780.3.579.2.593 1943 Unknown [id number] 2.16.84 0.1.828024.3.579.2.593 1943 Unknown [id number] 2.16.84 0.1.175530.3.579.2.593 1943 Unknown [id number] 2.16.84 0.1.501557.3.579.2.593 1943 Unknown [id number] 2.16.84 0.1.938994.3.579.2.593 1943 Unknown [id number] 2.16.84 0.1.783922.3.579.2.593 1943 Unknown [id number] 2.16.84 0.1.126298.3.579.2.593 1943 Unknown [id number] 2.16.84 0.1.862393.3.579.2.593 1943 Unknown [id number] 2.16.84 0.1.207285.3.579.2.593 1945 Unknown [id number] 2.16.84 0.1.967074.3.579.2.593 Medicare [id number] Unknown Social History Date Type Detail Facility Start: 08-26-2022 Tobacco smoking status Ex-smoker (fi nding) [facility] Tobacco smoking status Never [facility] Sex Assigned At Male [facility] Functional Status Date Assessment Result Facility 08-26-2022 Functional Status N/A [facility] Progress note 04-13-2024 Note Date & Type Note Facility 04-13-2024 Note [facility] Subjective Dylon Frnacis is a 78 y.o. year old male patient being seen for follow up echo and stress test. Also had liver and lipid profile last week. He has been on Leqvio injections for 1 year now. Amlodipine 5mg was added at last apt in February 2024. BP elevated today in clinic but he states he hasn't taken his medications yet today. He usually takes them around 11am and forgot to take them prior to apt. Patient still denies chest pain, SOB, palpitations, lightheadedness/syncope, and bleeding on warfarin. 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) BMI 40.0-44.9, adult ([facility]/HCC) Nocturia Obesity Morbid obesity ([facility]/HCC) Pain in both lower extremities Paroxysmal atrial fibrillation ([facility]/HCC) Peripheral vascular disease ([facility]) Poor urinary stream Weak urine stream Primary hypertension Stage 3 chronic kidney disease ([facility]/HCC) Swelling of lower leg Type 2 diabetes mellitus without complication ([facility]/HCC) Urge incontinence Urinary hesitancy Anemia Cardiac pacemaker in situ Daily use of moist tobacco Diabetes mellitus ([facility]/HCC) History of deep venous thrombosis Osteoarthritis Pulmonary embolism ([facility]/HCC) Sleep apnea Vitamin D deficiency Irritable bowel [...] placement in 2006. He was evaluated at [facility] and then at [facility] for thrombosed IVC filter and was told that conservative management is the best option. Previously he was admitted to [facility] with high grade AV block and underwent placement of dual chamber pacemaker. He is intolerant to statins and is on Leqvio therapy. I saw him most recently on 02/19/2020 for. His recent device check showed 100% RV pacing. I checked an echocardiogram that showed an ejection fraction of 35 to 40%. I then checked a stress test that did not show evidence of ischemia and an ejection fraction that was reduced. Today he is seen in the office to review the results of the testing and decide on further steps in management. he reports that he has been doing reasonably well. He denies chest pain. He has no significant shortness of breath on exertion. He has no leg edema. No dizziness or lightheadedness. He uses a cane to assist with ambulation. His blood pressure has been elevated. Review of Systems HENT: Positive for hearing loss. Respiratory: Positive for cough. Hematologic/Lymphatic: Bruises/bleeds easily. Musculoskeletal: Positive for arthritis, joint pain and muscle weakness. Neurological: Positive for focal weakness, numbness and weakness. All other systems reviewed and are negative. Objective Visit Vitals BP 166/90 (BP Location: Right arm, Patient Position: Sitting) Pulse 58 Ht 1.778 m (5' 10 ) Wt 96.2 kg (212 lb) SpO2 99% BMI 30.42 kg/m??? Smoking Status Former BSA 2.18 m??? Physical Exam Constitutional: Appearance: He is [...] wall: No tenderness. Abdominal: General: Bowel sounds (more content not included)... [facility] Progress note 02-19-2024 Note Date & Type Note Facility 02-19-2024 Note [facility] Subjective Dylon Francis is a 78 [...] placement in 2006. He was evaluated at [facility] and then at [facility] for thrombosed IVC filter and was told that conservative management is the best option. Previously he was admitted to [facility] with high grade AV block and [...] Judgment: Judgment normal (more content not included)... [facility] Progress note 08-24-2023 Note Date & [...] All other systems reviewed and are negative. [facility] Progress note 08-24-2023 Note Date & Type Note Facility 08-24-2023 Note [facility] Reason for visit: 6-month [...] right posterolateral branch; 30% proximal RCA disease 2006: Pulmonary embolism and DVT, underwent IVC Trapeze filter placement 2006: aortic and iliac stent graft 10x55 Palmaz 2003: PCI to right posterolateral branch of the RCA Bilateral lower extremity arterial ultrasound 09/03/2011: minimal to mild arterial disease bilaterally. CTA abdomen 11/30/2013: no significant renal artery stenosis; Echocardiogram 02/14/[address] [facility]: preserved LV systolic function, moderate [...] (CMS/HCC) History of (more content not included)... [facility] Discharge instructions 08-26-2022 Note Date [...] urethra. Follow these instructions at home: Take [id number] and prescription medicines only as told by [...] 08/24/2006 Document Revised: 07/19/2019 Document Reviewed: 09/28/2017 [email or web address]. Follow Up Care 09/03/2021 12:26:25 With:JACKIE WELLS, [facility] Callahan, URL Address: [address] [place] [address] [phone] When: Unknown Comments:PRN [facility] Evaluation + Plan note Note Date & Type Note Facility Evaluation + Plan note No data available for this section [facility] Progress note Note Date & Type Note Facility Progress note No data available for this section [facility] Summary Purpose Family History No [...] and content) DATE CREATED AUTHOR 03/02/2018 [facility] DATE CREATED AUTHOR AUTHOR'S ORGANIZ ATION [facility]/29/2022 [facility] DATE CREATED AUTHOR AUTHOR'S ORGANIZ ATION 02/13/2023 [facility] DATE CREATED AUTHOR AUTHOR'S ORGANIZ ATION 04/14/2024 [facility] Patient Care team informatio n (unrecognized section and content) Personnel Name: Charlie Stark MD Address: Address: [address] [place] [address] FOR RECORDS PERTAINING TO PATIENTS WHO ARE [...] BE BASED ON THE PRIMARY CLINICAL RECORDS. [employer] provides no warranty or guarantee of the accuracy or completeness of information in this document.
[2024-06-02 12:48] LABS: Anion Gap 6.2; BUN Creatinine Ratio 18.6; Calcium 9.2 mg/dL (8.5-10.1); Carbon Dioxide 33.3 mmol/L (21.0-32.0); Chloride 101 mmol/L (98-107); Estimated GFR (African America >60 (>=60); Estimated GFR (Non-African Ame 59 (>=60); Glucose 79 mg/dL (74-106); Potassium 4.5 mmol/L (3.5-5.1); Sodium 136 mmol/L (136-145)
== END 2024-06-02 10:29 | disposition home or self-care (01) ==
LOC: LAB 10:33
PROVIDERS: PCP Family Medicine; Visit Provider Internal Medicine Interventional Cardiology
DX: I50.22 Chronic systolic (congestive) heart failure (principal)
CPT/HCPCS: 36415; 80048

== ENCOUNTER 2024-06-07 02:35 | Outpatient (RCR) | payer MEDICARE, OTHER, SELFPAY | END 2024-07-07 23:26 | disposition home or self-care (01) | LOC: MM 02:35 | PROVIDERS: PCP Family Medicine; Visit Provider Internal Medicine | DX: Z51.81 Encounter for therapeutic drug level monitoring (principal); Z79.01 Long term (current) use of anticoagulants; I82.409 Acute embolism and thrombosis of unspecified deep veins of unspecified lower extremity | CPT/HCPCS: 85610; G0463 ==

== ENCOUNTER 2024-07-08 13:35 | Outpatient (RCR) | payer MEDICARE, OTHER, SELFPAY | END 2024-08-06 23:59 | disposition home or self-care (01) | LOC: MM 13:35 | PROVIDERS: PCP Family Medicine; Visit Provider Internal Medicine | DX: Z51.81 Encounter for therapeutic drug level monitoring (principal); Z79.01 Long term (current) use of anticoagulants; I82.409 Acute embolism and thrombosis of unspecified deep veins of unspecified lower extremity | CPT/HCPCS: 85610; G0463 ==

== ENCOUNTER 2024-08-02 12:52 | Outpatient (OUT) | payer MEDICARE, OTHER, SELFPAY ==
--- NOTE | 2024-08-02 13:00 | CA_ITS ---
Patient Name: YANN FRANCIS MR#: [id number] : 1945 Exam Date: 08/02/2024 Ordering Doctor: DR EDUARD HOPSON M.D. ECHOCARDIOGRAM REPORT PROCEDURE: CA ECHO DOPPLER COMPLETE INDICATIONS: Heart failure with reduced ejection fraction, cardiac stents, hypertension, diabetes, pacemaker COMPARISON: None. DESCRIPTION: COMPLETE ECHOCARDIOGRAM Real-time transthoracic echocardiography with 2D, M-mode, spectral and color flow Doppler performed. QUALITY: Technical quality was adequate. LEFT VENTRICLE: Normal chamber size. Thickened septal wall. Mild to moderate concentric hypertrophy. Abnormal septal motion likely due to pacing. Systolic function is difficult to assess due to abnormal septal motion and poor sound transmission but appears moderately reduced. LV EF: Moderately reduced left ventricular ejection fraction, (40%). DIASTOLIC: ATRIAL SEPTUM: LEFT ATRIUM: Normal chamber size. RIGHT ATRIUM: Normal chamber size. RIGHT VENTRICLE: Normal chamber size. Normal systolic function. TRICUSPID VALVE: Normal mobility and thickness. No stenosis with trivial regurgitation. No evidence of pulmonary hypertension. RVSP 23 mmHg MITRAL VALVE: Normal mobility and thickness. No evidence of mitral valve stenosis. Mild mitral annular calcification. No mitral regurgitation. AORTIC VALVE: Normal trileaflet appearance. No visible sclerosis. Normal leaflet mobility. No evidence of aortic valve stenosis. Trivial aortic regurgitation. AORTIC ROOT: Normal diameter and appearance. PULMONIC VALVE: Not well visualized. PERICARDIUM: No evidence of pericardial effusion. IVC: Not well visualized. PLEURA: CONCLUSION: 1. The left ventricle is normal in size. Systolic function is difficult to assess but appears to be moderately reduced. Estimated LVEF is 40%. 2. Normal right ventricular size and systolic function. 3. No significant valvular dysfunction. 4. Normal right-sided pressures. Adult Echocardiography Procedure Report Left Ventricle LVEDD (3.7 - 5.6 cm): 4.41 cm LVESD (2.2 - 4.0 cm): 2.66 cm LVIVS thickness (0.6 - 1.2 cm): 1.21 cm LVPW thickness (0.5 - 1.0 cm): 1.64 cm e': 0.09 m/s E - e': 5.13 LVOT Max Gradient: 1.67 mm[Hg] LVOT Area (cm2): 0.65 m/s Peak Velocity (LVOT): 0.65 m/s Mean Velocity (LVOT): 0.42 m/s LVOT Diameter 2.33 cm Left Atrium LA Volume Index (2D A2C): 35.60 ml/m2 Left Atrium Systolic Dimension: 2.94 cm Mitral Valve MV E to A Ratio: 0.52 Mitral Valve A-Wave Peak Velocity: 0.92 m/s Mitral Valve E-Wave Peak Velocity: 0.47 m/s Right Ventricle Aorta AO Root Diam: 3.95 cm Aortic Valve AoV Area (Peak Johnathon): 3.06 cm2, 3.06 cm2 AoV Area (VTI): 3.42 cm2, 3.42 cm2 Peak Velocity(Antegrade Flow): 0.90 m/s Peak Gradient(Antegrade Flow): 3.21 mm[Hg] Mean Velocity(Antegrade Flow): 0.60 m/s Mean Gradient(Antegrade Flow): 1.73 mm[Hg] Velocity Time Integral: 18.71 cm Tricuspid Valve Peak Velocity (Regurgitant Flow): 2.24 m/s Pulmonic Valve Right Atrium Right Atrium Systolic Pressure: 54.84 ml, 54.84 ml Dictated by: Eduard Hopson M.D. on 08/02/2024 at 18:46 Approved by: Eduard Hopson M.D. on 08/02/2024 at 18:51
== END 2024-08-02 12:53 | disposition home or self-care (01) ==
LOC: CARD 12:52
PROVIDERS: PCP Family Medicine; Visit Provider Internal Medicine Interventional Cardiology
DX: I50.22 Chronic systolic (congestive) heart failure (principal)
CPT/HCPCS: 93306

== ENCOUNTER 2024-08-08 06:17 | Outpatient (RCR) | payer MEDICARE, OTHER, SELFPAY | END 2024-09-06 09:06 | disposition home or self-care (01) | LOC: MM 06:17 | PROVIDERS: PCP Family Medicine; Visit Provider Internal Medicine | DX: Z51.81 Encounter for therapeutic drug level monitoring (principal); Z79.01 Long term (current) use of anticoagulants ==

== ENCOUNTER 2024-09-08 01:54 | Outpatient (RCR) | payer MEDICARE, OTHER, SELFPAY | END 2024-10-07 14:27 | disposition home or self-care (01) | LOC: MM 01:54 | PROVIDERS: PCP Family Medicine; Visit Provider Internal Medicine | DX: Z51.81 Encounter for therapeutic drug level monitoring (principal); Z79.01 Long term (current) use of anticoagulants | CPT/HCPCS: 85610; G0463 ==

== ENCOUNTER 2024-10-10 00:35 | Outpatient (RCR) | payer MEDICARE, OTHER, SELFPAY | END 2024-11-04 10:19 | disposition home or self-care (01) | LOC: MM 00:35 | PROVIDERS: PCP Family Medicine; Visit Provider Internal Medicine | DX: Z51.81 Encounter for therapeutic drug level monitoring (principal); Z79.01 Long term (current) use of anticoagulants | CPT/HCPCS: 85610; G0463 ==

== ENCOUNTER 2024-11-05 06:37 | Outpatient (RCR) | payer MEDICARE, OTHER, SELFPAY | END 2024-12-02 09:56 | disposition home or self-care (01) | LOC: MM 06:37 | PROVIDERS: PCP Family Medicine; Visit Provider Internal Medicine | DX: Z51.81 Encounter for therapeutic drug level monitoring (principal); Z79.01 Long term (current) use of anticoagulants; I82.409 Acute embolism and thrombosis of unspecified deep veins of unspecified lower extremity | CPT/HCPCS: 85610; G0463 ==

== ENCOUNTER 2024-12-14 13:06 | Outpatient (RCR) | payer MEDICARE, OTHER, SELFPAY | END 2025-01-04 14:40 | disposition home or self-care (01) | LOC: MM 13:06 | PROVIDERS: PCP Family Medicine; Visit Provider Family Medicine | DX: Z51.81 Encounter for therapeutic drug level monitoring (principal); Z79.01 Long term (current) use of anticoagulants; I82.409 Acute embolism and thrombosis of unspecified deep veins of unspecified lower extremity | CPT/HCPCS: 85610; G0463 ==

== ENCOUNTER 2025-01-05 04:54 | Outpatient (RCR) | payer MEDICARE, OTHER, SELFPAY | END 2025-02-04 07:17 | disposition home or self-care (01) | LOC: MM 04:54 | PROVIDERS: PCP Family Medicine; Visit Provider Family Medicine | DX: Z51.81 Encounter for therapeutic drug level monitoring (principal); Z79.01 Long term (current) use of anticoagulants | CPT/HCPCS: 85610; G0463 ==

== ENCOUNTER 2025-01-24 13:52 | Outpatient (OUT) | payer MEDICARE, OTHER, SELFPAY ==
--- NOTE | 2025-01-24 14:00 | CA_ITS ---
Patient Name: YANN FRANCIS MR#: [id number] : 1945 Exam Date: 01/24/2025 Ordering Doctor: DR EDUARD HOPSON M.D. ECHOCARDIOGRAM REPORT PROCEDURE: CA ECHO DOPPLER COMPLETE INDICATIONS: Chronic systolic heart failure, pacemaker, diabetes, hypertension COMPARISON: None. DESCRIPTION: COMPLETE ECHOCARDIOGRAM Real-time transthoracic echocardiography with 2D, M-mode, spectral and color flow Doppler performed. QUALITY: LEFT VENTRICLE: Normal chamber size. Moderate concentric left ventricular hypertrophy. Systolic function is at the lower limits of normal. LV EF: Lower limits of normal left ventricular ejection fraction, (50%). DIASTOLIC: Grade I diastolic dysfunction. ATRIAL SEPTUM: LEFT ATRIUM: Moderate dilatation. RIGHT ATRIUM: Normal chamber size. RIGHT VENTRICLE: Normal chamber size. Normal systolic function. Pacer wire present. TRICUSPID VALVE: Normal mobility and thickness. No stenosis with trivial regurgitation. Doppler studies reveal mildly (35-45) elevated right sided pressures. RVSP 44 mmHg MITRAL VALVE: Normal mobility and thickness. No evidence of mitral valve stenosis. There is no mitral annular calcification. AORTIC VALVE: Normal trileaflet appearance. No visible sclerosis. Normal leaflet mobility. No evidence of aortic valve stenosis. Trivial aortic regurgitation. AORTIC ROOT: Normal diameter and appearance, measuring 3.9 cm. PULMONIC VALVE: Not well visualized. PERICARDIUM: No evidence of pericardial effusion. IVC: IVC is dilated (2.3 cm), does not collapse. PLEURA: CONCLUSION: 1. Moderate concentric ventricular hypertrophy with low normal systolic function. LVEF is estimated at 50%. 2. Normal right ventricular size and systolic function. 3. No significant valvular dysfunction. 4. Moderate left atrial dilatation. 5. Mildly elevated right-sided pressures. RVSP is 44 mmHg. Adult Echocardiography Procedure Report Left Ventricle LVEDD (3.7 - 5.6 cm): 4.37 cm LVESD (2.2 - 4.0 cm): 3.68 cm LVIVS thickness (0.6 - 1.2 cm): 1.31 cm LVPW thickness (0.5 - 1.0 cm): 1.40 cm e': 0.13 m/s E - e': 3.01 LVOT Max Gradient: 1.80 mm[Hg] LVOT Area (cm2): 0.67 m/s Peak Velocity (LVOT): 0.67 m/s Mean Velocity (LVOT): 0.46 m/s LVOT Diameter 2.48 cm Left Atrium LA Volume Index (2D A2C): 36.24 ml/m2 Left Atrium Systolic Dimension: 3.96 cm Mitral Valve MV E to A Ratio: 0.42 Mitral Valve A-Wave Peak Velocity: 0.93 m/s Mitral Valve E-Wave Peak Velocity: 0.39 m/s Right Ventricle Aorta AO Root Diam: 3.89 cm Aortic Valve AoV Area (Peak Johnathon): 3.43 cm2, 3.43 cm2 AoV Area (VTI): 3.41 cm2, 3.41 cm2 Peak Velocity(Antegrade Flow): 0.94 m/s Peak Gradient(Antegrade Flow): 3.56 mm[Hg] Mean Velocity(Antegrade Flow): 0.67 m/s Mean Gradient(Antegrade Flow): 2.00 mm[Hg] Velocity Time Integral: 20.29 cm Tricuspid Valve Peak Velocity (Regurgitant Flow): 2.69 m/s Pulmonic Valve Peak Velocity: 0.79 m/s Peak Gradient: 2.49 mm[Hg] Right Atrium Right Atrium Systolic Pressure: 37.73 ml, 37.73 ml Dictated by: Eduard Hopson M.D. on 01/24/2025 at 18:25 Approved by: Eduard Hopson M.D. on 01/24/2025 at 18:28
== END 2025-01-24 13:53 | disposition home or self-care (01) ==
LOC: CARD 13:52
PROVIDERS: PCP Family Medicine; Visit Provider Internal Medicine Interventional Cardiology
DX: I50.22 Chronic systolic (congestive) heart failure (principal)
CPT/HCPCS: 93306; 93356

== ENCOUNTER 2025-01-26 14:27 | Outpatient (OUT) | payer MEDICARE, OTHER, SELFPAY ==
--- OUTSIDE RECORDS SUMMARY | 2024-11-21 04:03 | XMS_ITS ---
Author Organization [facility] in [place] Address [address] [place] [address] Care Team Providers Care Spanner Operator Name Role Phone Omid Stark Primary Care Provider [phone] REASON FOR VISIT refill Medications Medication SIG (Take, Route, Fr equency, Duration) Notes Start Date End Date Status Temazepam 30 MG 1 capsule at bedtime as needed Orally dx G47.00 Once a day for 30 days 11/21/2024 Active Encounters Encounter Location Date Provider Diagnosis [facility] [address] [place] [address] 11/21/2024 Omid Stark Other insomnia G47. 09 Assessments Encounter Date Diagnosis (ICD Code) Assessment Notes Treatment Notes Treatment Clinical Notes Section Notes 11/21/2024 Other insomnia (ICD-10 - G47.09) Plan Of Treatment Medication Medication Name Sig Start Date Stop Date Notes Temazepam 30 MG 1 capsule at bedtime as needed Orally dx G47.00 Once a day for 30 days 11/21/2024 Progress Notes * Dylon FRANCIS KDOB: [birth year] (78 yo M)Acc No.[id number]:11/21/2024 Patient: Sushant KEVINDylon :1945 A ge:78 Y S ex:Male Address:[address] [place] [id number] * Refills Refill Temazepam Capsule, 30 MG, Orally dx G47.00, 30, 1 capsule at bedtime as needed, Once a day, 30 days, Refills=0 * true * Date: Generated for Sergio quintero/Gurwinder/Willy on: 0 01/26/2025 02:29 PM EDT
--- OUTSIDE RECORDS SUMMARY | 2024-12-21 12:41 | XMS_ITS ---
Author Organization [facility] in [place] Address [address] [place] [address] Care Team Providers Care Solar Energy Systems Designer Name Role Phone Omid Stark Primary Care Provider REASON FOR VISIT rf Temazepam Medications Medication SIG (Take, Route, Fr equency, Duration) Notes Start Date End Date Status Temazepam 30 MG 1 capsule at bedtime as needed Orally dx G47.00 Once a day for 30 days 12/21/2024 Active Encounters Encounter Location Date Provider Diagnosis [facility] [address] [place] [address] 12/21/2024 Omid Stark Other insomnia G47.0 9 Assessments Encounter Date Diagnosis (ICD Code) Assessment Notes Treatment Notes Treatment Clinical Notes Section Notes 12/21/2024 Other insomnia (ICD-10 - G47.09) Plan Of Treatment Medication Medication Name Sig Start Date Stop Date Notes Temazepam 30 MG 1 capsule at bedtime as needed Orally dx G47.00 Once a day for 30 days 12/21/2024 Progress Notes * Dylon FRANCIS KDOB: [birth year] (79 yo M)Acc No.[id number]:12/21/2024 Patient: Sushant KEVINDylon :1945 A ge:79 Y S ex:Male Address:[address] [place] [id number] * Refills Refill Temazepam Capsule, 30 MG, Orally dx G47.00, 30, 1 capsule at bedtime as needed, Once a day, 30 days, Refills=0 * true * Date: Generated for Sergio quintero/Gurwinder/Zuleykaitting on: 0 01/26/2025 02:29 PM EDT
--- OUTSIDE RECORDS SUMMARY | 2025-01-06 11:35 | XMS_ITS ---
Author Name Auto Generated Organization OHIP Care Team Providers Care Ammonium Nitrate Crystallizer Name Role Phone ERNIE PRINGLE Referring Unavailable ERNIE PRINGLE Referring Unavailable EDUARD HOPSON Attending Unavailable ERNIE PRINGLE Referring Unavailable EDUARD HOPSON Attending Unavailable EDUARD HOPSON Attending Unavailable EDUARD HOPSON Attending Unavailable PROBLEMS DATE TYPE CONDITION / CODE ATTENDING STATUS [facility] 01/06/2025 Admitting Diagnosis Encounter for adjustment and management of other part of cardiac pacemaker / Z45.018(ICD-10) RONNIE [facility] 08/24/2023 Admitting Diagnosis Personal history of other venous thrombosis and embolism / Z86.718(ICD-10) EDUARD HOPSON [facility] 08/24/2023 Admitting Diagnosis Presence of cardiac pacemaker / Z95.0(ICD-10) EDUARD HOPSON [facility] 10/22/2022 Admitting Diagnosis Atherosclerotic heart disease of [place] coronary artery with other forms of angina pectoris / I25.118(ICD-10) EDUARD HOPSON [facility] 10/22/2022 Admitting Diagnosis Paroxysmal atrial fibrillation / I48.0(ICD-10) EDUARD HOPSON [facility] 10/22/2022 Admitting Diagnosis Essential (primary) hypertension / I10(ICD-10) FOZIA [facility] 10/22/2022 Admitting Diagnosis Mixed hyperlipidemia / E78.2(ICD-10) FOZIA [facility] 10/22/2022 Admitting Diagnosis 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 / I82.220(ICD-10) FOZIA [facility] 08/22/2024 Admitting Diagnosis Chronic systolic (congestive) heart failure / I50.22(ICD-10) FOZIA [facility] 08/22/2024 Admitting Diagnosis Presence of coronary angioplasty implant and graft / Z95.5(ICD-10) FOZIA [facility] 08/22/2024 Admitting Diagnosis Personal history of pulmonary embolism / Z86.711(ICD-10) FOZIA [facility] 06/28/2024 Admitting Diagnosis Encounter for adjustment and management of automatic implantable cardiac defibrillator / Z45.02(ICD-10) [facility] 10/22/2022 Admitting Diagnosis Chronic diastolic (congestive) heart failure / I50.32(ICD-10) FOZIA [facility] PROCEDURES No Procedure Records Found RESULTS ORDERS ONLY Observed: 09/08/2024 12:00 AM Status: COMPLETED Source: [facility] [id number] Dylon Francis 12/1945 M Date Provider Department [place] 09/08/2024 8-BRAN NICOLE [facility] Krystina Hodges Family History Adopted: Yes PROGRESS Observed: 08/22/2024 11:15 AM Status: COMPLETED Source: [facility] Cardiology - Krystina Hodges [facility] Subjective Dylon Francis is a 78 y.o. year old male patient being seen for 3 mo follow up chronic systolic heart failure, PAF, CAD, and hyperlipidemia. Had echo last month, and device interrogation in Jun. Patient denies chest pain, SOB, and palpitations. Says he had Covid-19 a few weeks ago and was very lightheaded upon standing. He states this is starting to improve. Denies syncope and bleeding on warfarin. Patient Active Problem [...] Irritable bowel syndrome Persistent insomnia Pure hypercholesterolemia Sensorineural hearing loss, bilateral Encounter for fitting and adjustment of hearing aid Family History Adopted: Yes Social History Tobacco [...] placement in 2006. He was evaluated at [facility] and then at [facility] for thrombosed IVC filter and was told that conservative management is the best option. Previously he was admitted to [email or web address]] with high grade AV block and underwent [...] and an ejection fraction that was reduced. At the visit of 04/13/2024 I added Farxiga and spironolactone and Entresto. I stopped amlodipine and torsemide. At visit of 06/03/2024 I increased carvedilol to 18.75 mg twice daily. A follow-up echocardiogram performed August 02, 2024 showed LVEF at 40%. Today he reports that he has been doing reasonably well. He denies chest pain. He has no significant shortness of breath on exertion. He has no leg edema. No dizziness or lightheadedness. He uses a cane to assist with ambulation. Review of Systems HENT: Positive for hearing loss. Respiratory: Positive for cough. Hematologic/Lymphatic: Bruises/bleeds easily. Musculoskeletal: Positive for arthritis, joint pain and muscle weakness. Neurological: Positive for focal weakness, light-headedness, numbness and weakness. All other systems reviewed and are negative. Objective Visit Vitals BP 122/74 (BP Location: Left arm, Patient Position: Sitting) Pulse 73 Ht 1.778 m (5' 10 ) Wt 93.4 kg (206 lb) SpO2 91% BMI 29.56 kg/m??? Smoking Status Former BSA 2.15 m??? Physical Exam Constitutional: Appearance: He is [...] normal. Behavior: Behavior is cooperative. Judgment: Judgment normal. Allergies Allergies Allergen Reactions Celecoxib Itching Xbywvqj-Iip-Fax Reductase Inhibitors Other and Rash Medications Current Outpatient Medications: amitriptyline (Elavil) 25 mg tablet, Take 1 tablet every day by oral route., Disp: , Rfl: aspirin 81 mg EC tablet, in the morning., Disp: , Rfl: carvedilol (Coreg) 6.25 mg tablet, Take 3 tablets (18.75 mg) by mouth with breakfast and with evening meal., Disp: 540 tablet, Rfl: 3 cholecalciferol, vitamin D3, 50 mcg (2,000 unit) capsule, Take 1 capsule every day by oral route., Disp: , Rfl: dapagliflozin propanediol (Farxiga) 10 mg, Take 1 tablet (10 mg) by mouth in the morning., Disp: 90 tablet, Rfl: 3 ezetimibe (Zetia) 10 mg tablet, Take 1 tablet (10 mg) by mouth in the morning., Disp: 90 tablet, Rfl: 3 ferrous sulfate 325 (65 Fe) MG tablet, every 12 (twelve) hours., Disp: , Rfl: inclisiran (Leqvio) 284 mg/1.5 mL syringe, Inject 1.5 mL under the skin every 6 (six) months. Inject 1.5mL for an initial dose, again 3 months after, and then every 6 months after that, Disp: 3 mL, Rfl: 0 isosorbide mononitrate ER (Imdur) 30 mg 24 hr tablet, TAKE 1 TABLET BY MOUTH ONE TIME A DAY (Patient taking differently: Take 30 mg by mouth in the morning.), Disp: 90 tablet, Rfl: 3 nitroglycerin (Nitrostat) 0.4 mg SL tablet, nitroglycerin 0.[address] 1 TABLET (0.4 MG) BY SUBLINGUAL ROUTE AT 1ST SIGN OF ATTACK; MAY REPEAT EVERY 5 MINUTES UP TO 3 TABS; IF NO RELIEF SEEK MEDICAL HELP, Disp: , Rfl: omeprazole (PriLOSEC) [address] capsule, omeprazole 40 mg capsule,delayed release TAKE 1 CAPSULE BY MOUTH EVERY DAY, Disp: , Rfl: sacubitril-valsartan (Entresto) 24-26 mg tablet, Take 1 tablet by mouth two times daily., Disp: 180 tablet, Rfl: 3 spironolactone (Aldactone) 25 mg tablet, Take 0.5 tablets (12.5 mg) by mouth in the morning., Disp: 45 tablet, Rfl: 3 temazepam (Restoril) 30 mg capsule, TAKE 1 CAPSULE BY MOUTH EVERY NIGHT, Disp: , Rfl: warfarin (Coumadin) 5 mg tablet, warfarin 5 mg tablet TAKE DAILY DIRECTED BY COUMADIN CLINIC, Disp: , Rfl: sacubitril-valsartan (Entresto) 24-26 mg tablet, Take 1 tablet by mouth two times daily., Disp: 180 tablet, Rfl: 3 Recent Labs No visits with results within 6 Month(s) from this visit. Latest known visit with results is: Legacy Encounter on 06/07/2019 Component Date Value Ventricular Rate 06/07/2019 67 Atrial Rate 06/07/2019 67 IN Interval 06/07/2019 184 QRS DURATION 06/07/2019 180 QT Interval 06/07/2019 478 QTC CALCULATION(BEZET) 06/07/2019 505 P Bunnlevel 06/07/2019 41 R-Bunnlevel 06/07/2019 -6 T Wave Bunnlevel 06/07/2019 94 Diagnosis 06/07/2019 Value:Normal sinus rhythm Left bundle branch block Abnormal ECG When compared with ECG of 11-JUN-2017 19:56, Previous ECG has undetermined rhythm, needs review QRS duration has increased T wave inversion no longer evident in Anterior leads Confirmed by STRESS, ([id number]), editor at large Meche Alatorre ([id number]) on 06/07/2019 12:11:31 PM Blood testing 03/13/2023: Hemoglobin 12.5, platelets 263, potassium 3.4, BUN 18, creatinine 1.2, EGFR 58 LFTs normal, triglycerides 73, cholesterol 141, LDL 72, HDL 54. Blood testing 04/08/2024: LFTs normal, triglycerides 77, cholesterol 137, HDL 60, LDL 62. Blood testing 06/02/2024: Potassium 4.5, BUN 22, creatinine 1.18, EGFR 59. Imaging and other tests Echocardiogram 08/02/2024: The left ventricle is normal in size. Systolic function is difficult to assess but appears to be moderately reduced. Estimated LVEF is 40%. Normal right ventricular size and systolic function. No significant valvular dysfunction. Normal right-sided pressures. Device check 06/28/2024: RA pacing 94%, RV pacing 100%, normal device function. Underlying rhythm complete heart block. Stress test 04/01/2024: No ischemia, fixed defect involving the inferior wall and apex. Global hypokinesis of the ventricle, mild ventriculomegaly and low left ventricular ejection fraction at 46%. Resting ECG demonstrated paced rhythm. Nondiagnostic EKG portion due to paced rhythm. Echocardiogram 03/15/2024: Global left trickle systolic function is moderately reduced, visually estimated ejection fraction of 35 to 40%. Right ventricle is normal in size and systolic function. Grade 1 diastolic dysfunction. Biatrial enlargement. No significant valvular abnormalities. Cardiac device check 12/23/2023: No events, pacemaker dependent, underlying rhythm complete heart block, a pacing 89%, RV pacing 100%. Echocardiogram 04/15/2023: Technically difficult study with poor sound transmission, mild concentric left ventricular hypertrophy, systolic function is difficult to assess but appears at the lower limits of normal, LVEF is 50 to 55%, normal right ventricular size and systolic function. No evidence of significant valvular dysfunction. Normal right-sided pressures. Prior testing: Echocardiogram 05/14/2017: Global left ventricular systolic function [...] renal artery stenosis; Echocardiogram 02/14/2015 at the [facility]: preserved LV systolic function, moderate diastolic dysfunction, and normal right sided pressures. He was evaluated for chest pain and a stress test showed evidence of a small to moderate area of inferolateral ischemia. He was referred for coronary angiography on 05/04/2015. This showed Coronary artery disease with patent previously placed LAD stents with 30% in-stent restenosis, patent stent in the posterolateral ventricular branch of the right coronary artery, mild to moderate disease in the right coronary artery and ramus vessels, and moderately severe stenosis in a septal branch. He was recommended medical therapy and imdur 30 mg daily was added. cardiac catheterization on 06/11/2017, this showed: 1. Severe single-vessel coronary artery disease. 2. 90% stenosis in the proximal ramus vessel reduced to 0% by balloon angioplasty and Promus drug-eluting stenting. 3. 40% stenosis in the mid ramus. 4. 20% in-stent restenosis in the mid LAD. 5. 20% proximal and mid RCA stenosis and patent PLV stent. 6. Small nondominant circumflex with free of disease. Pacemaker check 03/26/2020: Episodes of atrial fibrillation noted. Assessment/Plan Diagnoses and all orders for this visit: Chronic systolic heart failure (CMS/HCC) - Transthoracic echo (TTE) complete; Future Paroxysmal atrial fibrillation (CMS/HCC) Primary hypertension Mixed hyperlipidemia Coronary artery disease of [place] artery of [place]yt[place] heart with stable angina pectoris (CMS/HCC) History of coronary artery stent placement IVC thrombosis (CMS/HCC) History of deep venous thrombosis Hx pulmonary embolism Cardiac pacemaker in situ He has new onset systolic heart failure with an ejection fraction 35 to 40% by echocardiography 03/2024. In the absence of ischemia there is no need for cardiac catheterization. This most likely related to RV pacing. After optimizing GDMT his follow-up echocardiogram in July 2024 showed LVEF at 40%. Currently there is no room on further optimization of GDMT. I again today discussed the possible need for HOME HEALTH ADMINISTRATOR pacing if the ejection fraction does not continue to improve or even declines further. For now he is asymptomatic and the ejection fraction being at 40% I am going to keep monitoring and repeat an echo in 6 months. At that time we can make a final determination for the need for HOME HEALTH ADMINISTRATOR pacing. Coronary artery disease: s/p stenting of the ramus 06/2017. I continue aspirin 81 mg daily. He has no angina. continue current medical therapy. He is on Leqvio. His liver and lipid panel were within normal range and his LDL is at target. Continue the same. His stress test March 2024 showed no ischemia. AV block: s/p pacemaker. Completely dependent on pacemaker and pacing 100%. we can decide in the future if there is need for HOME HEALTH ADMINISTRATOR upgrade. Hypertension: His blood pressure is controlled. Thrombosed IVC filter: medical therapy, he continues to be on warfarin. Paroxysmal atrial fibrillation: Picked up on device check. He is already on warfarin therapy. He should continue that. Follow up in 6 months with echocardiogram. Follow up in about 6 months (around 02/20/2025). Eduard Hopson MD OFFICE VISIT Observed: 08/22/2024 11:15 AM Status: COMPLETED Source: [facility] [id number] Dylon Francis [place] 12/1945 [facility] Provider Department Center 08/22/2024 EDUARD PRUITT CALLIE Hodges Family History Adopted: Yes Level of Service:10628 IN OFFICE/OUTPATIENT ESTABLISHED MOD [facility] 30 MIN OFFICE VISIT Observed: 06/03/2024 11:30 AM Status: COMPLETED Source: [facility] [id number] PennyDylon K 12/1945 [facility] Provider Department Center 06/03/2024 EDUARD PRUITT CALLIE Hodges Family History Adopted: Yes Level of Service:31661 IN OFFICE/OUTPATIENT ESTABLISHED MOD [facility] 30 MIN PROGRESS Observed: 06/03/2024 11:30 AM Status: COMPLETED Source: [facility] Cardiology [facility] Subjective Dylon Francis is a 78 y.o. year old male patient being seen for 1 mo follow up chronic systolic heart failure, PAF, CAD, and hyperlipidemia. At last month's apt he was started on Farxiga and spironolactone. Amlodipine and torsemide were stopped. BMP was drawn yesterday. He is due next month for routine device interrogation. He denies chest pain, SOB, palpitations, lightheadedness/syncope, [...] (CMS/HCC) IVC thrombosis (CMS/HCC) BMI 40.0-44.9, adult ([facility]/HCC) Nocturia Obesity Morbid obesity ([facility]/HCC) Pain in both lower extremities Paroxysmal atrial fibrillation ([facility]/HCC) Peripheral vascular disease ([facility]/HCC) Poor urinary stream Weak urine stream Primary hypertension Stage 3 chronic kidney disease ([facility]/HCC) Swelling of lower leg Type 2 diabetes mellitus without complication ([facility]/HCC) Urge incontinence Urinary hesitancy Anemia Cardiac pacemaker in situ Daily use of moist tobacco Diabetes mellitus ([facility]/HCC) History of deep venous thrombosis Osteoarthritis Pulmonary embolism ([facility]/HCC) Sleep apnea Vitamin D deficiency Irritable bowel syndrome Persistent insomnia Pure hypercholesterolemia Sensorineural hearing loss, bilateral Family History Adopted: Yes Social History Tobacco [...] placement in 2006. He was evaluated at [facility] and then at [facility] for thrombosed IVC filter and was told that conservative management is the best option. Previously he was admitted to [facility] [[email or web address]] with high grade AV block and underwent [...] and an ejection fraction that was reduced. At the visit of 04/13/2024 I added Farxiga and spironolactone and Entresto. I stopped amlodipine and torsemide. Today he reports that he has been doing reasonably well. He denies chest pain. He has no significant shortness of breath on exertion. He has no leg edema. No dizziness or lightheadedness. He uses a cane to assist with ambulation. Review of Systems HENT: Positive for hearing loss and sore throat. Respiratory: Positive for cough. Hematologic/Lymphatic: Bruises/bleeds easily. Musculoskeletal: Positive for arthritis, joint pain and muscle weakness. Neurological: Positive for focal weakness, numbness and weakness. All other systems reviewed and are negative. Objective Visit Vitals BP 136/80 (BP Location: Left arm, Patient Position: Sitting) Pulse 78 Ht 1.778 m (5' 10 ) Wt 97.1 kg (214 lb) SpO2 93% BMI 30.71 kg/m??? Smoking Status Former BSA 2.19 m??? Physical Exam Constitutional: Appearance: He is [...] normal. Behavior: Behavior is cooperative. Judgment: Judgment normal. Allergies Allergies Allergen Reactions Celecoxib Itching Xpfltmf-Dru-Fxo Reductase Inhibitors Other and Rash Medications Current Outpatient Medications: amitriptyline (Elavil) 25 mg tablet, Take 1 tablet every day by oral route., Disp: , Rfl: aspirin 81 mg EC tablet, in the morning., Disp: , Rfl: cholecalciferol, vitamin D3, 50 mcg (2,000 unit) capsule, Take 1 capsule every day by oral route., Disp: , Rfl: dapagliflozin propanediol (Farxiga) 10 mg, Take 1 tablet (10 mg) by mouth in the morning., Disp: 90 tablet, Rfl: 3 ezetimibe (Zetia) 10 mg tablet, Take 1 tablet (10 mg) by mouth in the morning., Disp: 90 tablet, Rfl: 3 ferrous sulfate 325 (65 Fe) MG tablet, every 12 (twelve) hours., Disp: , Rfl: inclisiran (Leqvio) 284 mg/1.5 mL syringe, Inject 1.5 mL under the skin every 6 (six) months. Inject 1.5mL for an initial dose, again 3 months after, and then every 6 months after that, Disp: 3 mL, Rfl: 0 isosorbide mononitrate ER (Imdur) 30 mg 24 hr tablet, TAKE 1 TABLET BY MOUTH ONE TIME A DAY, Disp: 90 tablet, Rfl: 3 nitroglycerin (Nitrostat) 0.4 mg SL tablet, nitroglycerin 0.[address] 1 TABLET (0.4 MG) BY SUBLINGUAL ROUTE AT 1ST SIGN OF ATTACK; MAY REPEAT EVERY 5 MINUTES UP TO 3 TABS; IF NO RELIEF SEEK MEDICAL HELP, Disp: , Rfl: omeprazole (PriLOSEC) [address] capsule, omeprazole 40 mg capsule,delayed release TAKE 1 CAPSULE BY MOUTH EVERY DAY, Disp: , Rfl: sacubitril-valsartan (Entresto) 24-26 mg tablet, Take 1 tablet by mouth two times daily., Disp: 180 tablet, Rfl: 3 spironolactone (Aldactone) 25 mg tablet, Take 0.5 tablets (12.5 mg) by mouth in the morning., Disp: 45 tablet, Rfl: 3 temazepam (Restoril) 30 mg capsule, TAKE 1 CAPSULE BY MOUTH EVERY NIGHT, Disp: , Rfl: warfarin (Coumadin) 5 mg tablet, warfarin 5 mg tablet TAKE DAILY DIRECTED BY COUMADIN CLINIC, Disp: , Rfl: carvedilol (Coreg) 6.25 mg tablet, Take 3 tablets (18.75 mg) by mouth with breakfast and with evening meal., Disp: 540 tablet, Rfl: 3 sacubitril-valsartan (Entresto) 24-26 mg tablet, Take 1 tablet by mouth two times daily., Disp: 180 tablet, Rfl: 3 Recent Labs No visits with results within 6 Month(s) from this visit. Latest known visit with results is: Legacy Encounter on 06/07/2019 Component Date Value Ventricular Rate 06/07/2019 67 Atrial Rate 06/07/2019 67 IN Interval 06/07/2019 184 QRS DURATION 06/07/2019 180 QT Interval 06/07/2019 478 QTC CALCULATION(BEZET) 06/07/2019 505 P Bunnlevel 06/07/2019 41 R-Bunnlevel 06/07/2019 -6 T Wave Bunnlevel 06/07/2019 94 Diagnosis 06/07/2019 Value:Normal sinus rhythm Left bundle branch block Abnormal ECG When compared with ECG of 11-JUN-2017 19:56, Previous ECG has undetermined rhythm, needs review QRS duration has increased T wave inversion no longer evident in Anterior leads Confirmed by STRESS, ([id number]), editor at large Meche Alatorre ([id number]) on 06/07/2019 12:11:31 PM Blood testing 03/13/2023: Hemoglobin 12.5, platelets 263, potassium 3.4, BUN 18, creatinine 1.2, EGFR 58 LFTs normal, triglycerides 73, cholesterol 141, LDL 72, HDL 54. Blood testing 04/08/2024: LFTs normal, triglycerides 77, cholesterol 137, HDL 60, LDL 62. Blood testing 06/02/2024: Potassium 4.5, BUN 22, creatinine 1.18, EGFR 59. Imaging and other tests Stress test 04/01/2024: No ischemia, fixed defect involving the inferior wall and apex. Global hypokinesis of the ventricle, mild ventriculomegaly and low left ventricular ejection fraction at 46%. Resting ECG demonstrated paced rhythm. Nondiagnostic EKG portion due to paced rhythm. Echocardiogram 03/15/2024: Global left trickle systolic function is moderately reduced, visually estimated ejection fraction of 35 to 40%. Right ventricle is normal in size and systolic function. Grade 1 diastolic dysfunction. Biatrial enlargement. No significant valvular abnormalities. Cardiac device check 12/23/2023: No events, pacemaker dependent, underlying rhythm complete heart block, a pacing 89%, RV pacing 100%. Echocardiogram 04/15/2023: Technically difficult study with poor sound transmission, mild concentric left ventricular hypertrophy, systolic function is difficult to assess but appears at the lower limits of normal, LVEF is 50 to 55%, normal right ventricular size and systolic function. No evidence of significant valvular dysfunction. Normal right-sided pressures. Prior testing: Echocardiogram 05/14/2017: Global left ventricular systolic function [...] renal artery stenosis; Echocardiogram 02/14/2015 at the [facility]: preserved LV systolic function, moderate diastolic dysfunction, and normal right sided pressures. He was evaluated for chest pain and a stress test showed evidence of a small to moderate area of inferolateral ischemia. He was referred for coronary angiography on 05/04/2015. This showed Coronary artery disease with patent previously placed LAD stents with 30% in-stent restenosis, patent stent in the posterolateral ventricular branch of the right coronary artery, mild to moderate disease in the right coronary artery and ramus vessels, and moderately severe stenosis in a septal branch. He was recommended medical therapy and imdur 30 mg daily was added. cardiac catheterization on 06/11/2017, this showed: 1. Severe single-vessel coronary artery disease. 2. 90% stenosis in the proximal ramus vessel reduced to 0% by balloon angioplasty and Promus drug-eluting stenting. 3. 40% stenosis in the mid ramus. 4. 20% in-stent restenosis in the mid LAD. 5. 20% proximal and mid RCA stenosis and patent PLV stent. 6. Small nondominant circumflex with free of disease. Pacemaker check 03/26/2020: Episodes of atrial fibrillation noted. Assessment/Plan Diagnoses and all orders for this visit: Chronic systolic heart failure (CMS/HCC) - carvedilol (Coreg) 6.25 mg tablet; Take 3 tablets (18.75 mg) by mouth with breakfast and with evening meal. - Transthoracic echo (TTE) complete; Future Paroxysmal atrial fibrillation (CMS/HCC) Primary hypertension Mixed hyperlipidemia Coronary artery disease of [place] artery of lyt[place] heart with stable angina pectoris (CMS/HCC) History of coronary artery stent placement IVC thrombosis (CMS/HCC) History of deep venous thrombosis Hx pulmonary embolism Cardiac pacemaker in situ He has new onset systolic heart failure with an ejection fraction 35 to 40% by echocardiography 03/2024. In the absence of ischemia there is no need for cardiac catheterization. This most likely related to RV pacing. At this time will continue to optimize medical therapy by increasing carvedilol to 18.75 mg bid. I explained to him that after optimization of GDMT we can repeat echocardiogram in the next 2 to 3 months to follow-up on his systolic function and decide on the need for HOME HEALTH ADMINISTRATOR pacing. Coronary artery disease: s/p stenting of the ramus 06/2017. I continue aspirin 81 mg daily. He has no angina. continue current medical therapy. He is on Leqvio. His liver and lipid panel were within normal range and his LDL is at target. Continue the same. His recent stress test March 2024 showed no ischemia. AV block: s/p pacemaker. Completely dependent on pacemaker and pacing 100%. Currently I am optimizing GDMT for systolic heart failure and we can decide in the future if there is need for HOME HEALTH ADMINISTRATOR upgrade. Hypertension: His blood pressure is not controlled. I am making the above changes. Thrombosed IVC filter: medical therapy, he continues to be on warfarin. Paroxysmal atrial fibrillation: Picked up on device check. He is already on warfarin therapy. He should continue that. Follow up in 2-3 months with echocardiogram. Follow up in about 3 months (around 09/02/2024). Eduard Hopson MD PROGRESS Observed: 04/13/2024 11:30 AM Status: COMPLETED Source: [facility] Cardiology - [facility] Subjective Dylon Francis is a 78 y.o. [...] placement in 2006. He was evaluated at [facility] and then at [facility] for thrombosed IVC filter and was told that conservative management is the best option. Previously he was admitted to [email or web address]] with high grade AV block and underwent [...] normal. Behavior: Behavior is cooperative. Judgment: Judgment normal. Allergies Allergies Allergen Reactions Celecoxib Itching Pjrycay-Wdk-Lpl Reductase Inhibitors Other and Rash Medications Current Outpatient Medications: amitriptyline (Elavil) 25 mg tablet, Take 1 tablet every day by oral route., Disp: , Rfl: aspirin 81 mg EC tablet, in the morning., Disp: , Rfl: carvedilol (Coreg) 6.25 mg tablet, Take 2 tablets (12.5 mg) by mouth with breakfast and with evening meal., Disp: 180 tablet, Rfl: 3 cholecalciferol, vitamin D3, 50 mcg (2,000 unit) capsule, Take 1 capsule every day by oral route., Disp: , Rfl: ezetimibe (Zetia) 10 mg tablet, Take 1 tablet (10 mg) by mouth in the morning., Disp: 90 tablet, Rfl: 3 ferrous sulfate 325 (65 Fe) MG tablet, every 12 (twelve) hours., Disp: , Rfl: inclisiran (Leqvio) 284 mg/1.5 mL syringe, Inject 1.5 mL under the skin every 6 (six) months. Inject 1.5mL for an initial dose, again 3 months after, and then every 6 months after that, Disp: 3 mL, Rfl: 0 isosorbide mononitrate ER (Imdur) 30 mg 24 hr tablet, TAKE 1 TABLET BY MOUTH ONE TIME A DAY, Disp: 90 tablet, Rfl: 3 nitroglycerin (Nitrostat) 0.4 mg SL tablet, nitroglycerin 0.[address] 1 TABLET (0.4 MG) BY SUBLINGUAL ROUTE AT 1ST SIGN OF ATTACK; MAY REPEAT EVERY 5 MINUTES UP TO 3 TABS; IF NO RELIEF SEEK MEDICAL HELP, Disp: , Rfl: omeprazole (PriLOSEC) [address] capsule, omeprazole 40 mg capsule,delayed release TAKE 1 CAPSULE BY MOUTH EVERY DAY, Disp: , Rfl: temazepam (Restoril) 30 mg capsule, TAKE 1 CAPSULE BY MOUTH EVERY NIGHT, Disp: , Rfl: warfarin (Coumadin) 5 mg tablet, warfarin 5 mg tablet TAKE DAILY DIRECTED BY COUMADIN CLINIC, Disp: , Rfl: dapagliflozin propanediol (Farxiga) 10 mg, Take 1 tablet (10 mg) by mouth in the morning., Disp: 90 tablet, Rfl: 3 sacubitril-valsartan (Entresto) 24-26 mg tablet, Take 1 tablet by mouth two times daily., Disp: 180 tablet, Rfl: 3 spironolactone (Aldactone) 25 mg tablet, Take 0.5 tablets (12.5 mg) by mouth in the morning., Disp: 45 tablet, Rfl: 3 Recent Labs No visits with results within 6 Month(s) from this visit. Latest known visit with results is: Legacy Encounter on 06/07/2019 Component Date Value Ventricular Rate 06/07/2019 67 Atrial Rate 06/07/2019 67 IN Interval 06/07/2019 184 QRS DURATION 06/07/2019 180 QT Interval 06/07/2019 478 QTC CALCULATION(BEZET) 06/07/2019 505 P Bunnlevel 06/07/2019 41 R-Bunnlevel 06/07/2019 -6 T Wave Bunnlevel 06/07/2019 94 Diagnosis 06/07/2019 Value:Normal sinus rhythm Left bundle branch block Abnormal ECG When compared with ECG of 11-JUN-2017 19:56, Previous ECG has undetermined rhythm, needs review QRS duration has increased T wave inversion no longer evident in Anterior leads Confirmed by STRESS, ([id number]), editor at large Meche Alatorre ([id number]) on 06/07/2019 12:11:31 PM Blood testing 03/13/2023: Hemoglobin 12.5, platelets 263, potassium 3.4, BUN 18, creatinine 1.2, EGFR 58 LFTs normal, triglycerides 73, cholesterol 141, LDL 72, HDL 54. Blood testing 04/08/2024: LFTs normal, triglycerides 77, cholesterol 137, HDL 60, LDL 62. Imaging and other tests Stress test 04/01/2024: No ischemia, fixed defect involving the inferior wall and apex. Global hypokinesis of the ventricle, mild ventriculomegaly and low left ventricular ejection fraction at 46%. Resting ECG demonstrated paced rhythm. Nondiagnostic EKG portion due to paced rhythm. Echocardiogram 03/15/2024: Global left trickle systolic function is moderately reduced, visually estimated ejection fraction of 35 to 40%. Right ventricle is normal in size and systolic function. Grade 1 diastolic dysfunction. Biatrial enlargement. No significant valvular abnormalities. Cardiac device check 12/23/2023: No events, pacemaker dependent, underlying rhythm complete heart block, a pacing 89%, RV pacing 100%. Echocardiogram 04/15/2023: Technically difficult study with poor sound transmission, mild concentric left ventricular hypertrophy, systolic function is difficult to assess but appears at the lower limits of normal, LVEF is 50 to 55%, normal right ventricular size and systolic function. No evidence of significant valvular dysfunction. Normal right-sided pressures. Prior testing: Echocardiogram 05/14/2017: Global left ventricular systolic function [...] 2007: aortic and iliac stent graft 10x55 Palmia 2004: PCI to right posterolateral branch of the RCA Bilateral lower extremity arterial ultrasound 09/03/2011: minimal to mild arterial disease bilaterally. CTA abdomen 11/30/2013: no significant renal artery stenosis; Echocardiogram 02/14/2015 at the [facility]: preserved LV systolic function, moderate diastolic dysfunction, and normal right sided pressures. He was evaluated for chest pain and a stress test showed evidence of a small to moderate area of inferolateral ischemia. He was referred for coronary angiography on 05/04/2015. This showed Coronary artery disease with patent previously placed LAD stents with 30% in-stent restenosis, patent stent in the posterolateral ventricular branch of the right coronary artery, mild to moderate disease in the right coronary artery and ramus vessels, and moderately severe stenosis in a septal branch. He was recommended medical therapy and imdur 30 mg daily was added. cardiac catheterization on 06/11/2017, this showed: 1. Severe single-vessel coronary artery disease. 2. 90% stenosis in the proximal ramus vessel reduced to 0% by balloon angioplasty and Promus drug-eluting stenting. 3. 40% stenosis in the mid ramus. 4. 20% in-stent restenosis in the mid LAD. 5. 20% proximal and mid RCA stenosis and patent PLV stent. 6. Small nondominant circumflex with free of disease. Pacemaker check 03/26/2020: Episodes of atrial fibrillation noted. Assessment/Plan Diagnoses and all orders for this visit: Chronic systolic heart failure (CMS/HCC) - dapagliflozin propanediol (Farxiga) 10 mg; Take 1 tablet (10 mg) by mouth in the morning. - spironolactone (Aldactone) 25 mg tablet; Take 0.5 tablets (12.5 mg) by mouth in the morning. - sacubitril-valsartan (Entresto) 24-26 mg tablet; Take 1 tablet by mouth two times daily. 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 I discussed with him that in the absence of ischemia there is no need for cardiac catheterization. This could be related to RV pacing. At this time will optimize medical therapy as follows: Add Farxiga 10 mg daily. Add spironolactone 2512.5 mg once daily. Add Entresto 24-26 mg twice daily. Stop amlodipine and torsemide. Check BMP in 2 weeks. I explained to him that after optimization of GDMT we can repeat echocardiogram in the next 2 to 3 months to follow-up on his systolic function and decide on the need for HOME HEALTH ADMINISTRATOR pacing. Coronary artery disease: s/p stenting of the ramus 06/2017. I continue aspirin 81 mg daily. He has no angina. continue current medical therapy. He is on Leqvio. His liver and lipid panel were within normal range and his LDL is at target. Continue the same. His recent stress test March 2024 showed no ischemia. AV block: s/p pacemaker. Completely dependent on pacemaker and pacing 100%. Currently I am optimizing GDMT for systolic heart failure and we can decide in the future if there is need for HOME HEALTH ADMINISTRATOR upgrade. Hypertension: His blood pressure is not controlled. I am making the above changes. Thrombosed IVC filter: medical therapy, he continues to be on warfarin. Paroxysmal atrial fibrillation: Picked up on device check. He is already on warfarin therapy. He should continue that. Follow up in about 4 weeks (around 05/11/2024). Eduard Hopson MD OFFICE VISIT Observed: 04/13/2024 11:30 AM Status: COMPLETED Source: [facility] [id number] Panfilo Francisbal Tran 12/1945 Date Provider Department Center 04/13/2024 [facility]-EDU[facility] HOPSON [facility] Family History Adopted: Yes Level of Service:83261 IN OFFICE/OUTPATIENT ESTABLISHED MOD MDM 30 MIN 36 Observed: 04/12/2024 12:03 PM Status: COMPLETED Source: [facility] Regarding stress test result from 04/01/2024: MD Bran Velarde MA Let's see him in follow up to optimize medical therapy, he will then need a follow up echo to check response and decide on HOME HEALTH ADMINISTRATOR upgrade. Scheduled patient for follow up with Dr. Hopson on 04/13/2024. 36 Observed: 03/24/2024 3:32 PM Status: COMPLETED Source: [facility] Regarding echo result from : MD Bran Velarde MA Let's get a stress test and see him in the office after that to optimize medical therapy. Patient's made aware. Order faxed to [facility]. OFFICE VISIT Observed: 02/19/2024 2:30 PM Status: COMPLETED Source: [facility] [id number] Dylon Francis 12/1945 Date Provider Department Center 02/19/2024 [facility]EDUARD HOPSON [facility] Family History Adopted: Yes Level of Service:03582 IN OFFICE/OUTPATIENT ESTABLISHED MOD [facility] 30 MIN PROGRESS Observed: 02/19/2024 2:30 PM Status: COMPLETED Source: [facility] Cardiology - [facility] Subjective Dylon Francis is a 78 [...] placement in 2006. He was evaluated at [facility] and then at [facility] for thrombosed IVC filter and was told that conservative management is the best option. Previously he was admitted to [facility] [[email or web address]] with high grade AV block and underwent [...] normal. Behavior: Behavior is cooperative. Judgment: Judgment normal. Allergies Allergies Allergen Reactions Celecoxib Itching Xwamlzn-Dum-Rvp Reductase Inhibitors Other and Rash Medications Current Outpatient Medications: amitriptyline (Elavil) 25 mg tablet, Take 1 tablet every day by oral route., Disp: , Rfl: aspirin 81 mg EC tablet, in the morning., Disp: , Rfl: carvedilol (Coreg) 6.25 mg tablet, Take 2 tablets (12.5 mg) by mouth with breakfast and with evening meal., Disp: 180 tablet, Rfl: 3 cholecalciferol, vitamin D3, 50 mcg (2,000 unit) capsule, Take 1 capsule every day by oral route., Disp: , Rfl: ezetimibe (Zetia) 10 mg tablet, Take 1 tablet (10 mg) by mouth in the morning., Disp: 90 tablet, Rfl: 3 ferrous sulfate 325 (65 Fe) MG tablet, every 12 (twelve) hours., Disp: , Rfl: inclisiran (Leqvio) 284 mg/1.5 mL syringe, Inject 1.5 mL under the skin every 6 (six) months. Inject 1.5mL for an initial dose, again 3 months after, and then every 6 months after that, Disp: 3 mL, Rfl: 0 isosorbide mononitrate ER (Imdur) 30 mg 24 hr tablet, TAKE 1 TABLET BY MOUTH ONE TIME A DAY, Disp: 90 tablet, Rfl: 3 nitroglycerin (Nitrostat) 0.4 mg SL tablet, nitroglycerin 0.[address] 1 TABLET (0.4 MG) BY SUBLINGUAL ROUTE AT 1ST SIGN OF ATTACK; MAY REPEAT EVERY 5 MINUTES UP TO 3 TABS; IF NO RELIEF SEEK MEDICAL HELP, Disp: , Rfl: omeprazole (PriLOSEC) [address] capsule, omeprazole 40 mg capsule,delayed release TAKE 1 CAPSULE BY MOUTH EVERY DAY, Disp: , Rfl: temazepam (Restoril) 30 mg capsule, TAKE 1 CAPSULE BY MOUTH EVERY NIGHT, Disp: , Rfl: torsemide (Demadex) 20 mg tablet, in the morning., Disp: , Rfl: warfarin (Coumadin) 5 mg tablet, warfarin 5 mg tablet TAKE DAILY DIRECTED BY COUMADIN CLINIC, Disp: , Rfl: amLODIPine (Norvasc) 5 mg tablet, Take 1 tablet (5 mg) by mouth in the morning., Disp: 90 tablet, Rfl: 3 Recent Labs No visits with results within 6 Month(s) from this visit. Latest known visit with results is: Legacy Encounter on 06/07/2019 Component Date Value Ventricular Rate 06/07/2019 67 Atrial Rate 06/07/2019 67 IN Interval 06/07/2019 184 QRS DURATION 06/07/2019 180 QT Interval 06/07/2019 478 QTC CALCULATION(BEZET) 06/07/2019 505 P Bunnlevel 06/07/2019 41 R-Bunnlevel 06/07/2019 -6 T Wave Bunnlevel 06/07/2019 94 Diagnosis 06/07/2019 Value:Normal sinus rhythm Left bundle branch block Abnormal ECG When compared with ECG of 11-JUN-2017 19:56, Previous ECG has undetermined rhythm, needs review QRS duration has increased T wave inversion no longer evident in Anterior leads Confirmed by STRESS, (55), editor at large Meche Alatorre ([id number]) on 06/07/2019 12:11:31 PM Blood testing 03/13/2023: Hemoglobin 12.5, platelets 263, potassium 3.4, BUN 18, creatinine 1.2, EGFR 58 LFTs normal, triglycerides 73, cholesterol 141, LDL 72, HDL 54. Imaging and other tests Cardiac device check 12/23/2023: No events, pacemaker dependent, underlying rhythm complete heart block, a pacing 89%, RV pacing 100%. Echocardiogram 04/15/2023: Technically difficult study with poor sound transmission, mild concentric left ventricular hypertrophy, systolic function is difficult to assess but appears at the lower limits of normal, LVEF is 50 to 55%, normal right ventricular size and systolic function. No evidence of significant valvular dysfunction. Normal right-sided pressures. Prior testing: Echocardiogram 05/14/2017: Global left ventricular systolic function [...] renal artery stenosis; Echocardiogram 02/14/2015 at the [facility]: preserved LV systolic function, moderate diastolic dysfunction, and normal right sided pressures. He was evaluated for chest pain and a stress test showed evidence of a small to moderate area of inferolateral ischemia. He was referred for coronary angiography on 05/04/2015. This showed Coronary artery disease with patent previously placed LAD stents with 30% in-stent restenosis, patent stent in the posterolateral ventricular branch of the right coronary artery, mild to moderate disease in the right coronary artery and ramus vessels, and moderately severe stenosis in a septal branch. He was recommended medical therapy and imdur 30 mg daily was added. cardiac catheterization on 06/11/2017, this showed: 1. Severe single-vessel coronary artery disease. 2. 90% stenosis in the proximal ramus vessel reduced to 0% by balloon angioplasty and Promus drug-eluting stenting. 3. 40% stenosis in the mid ramus. 4. 20% in-stent restenosis in the mid LAD. 5. 20% proximal and mid RCA stenosis and patent PLV stent. 6. Small nondominant circumflex with free of disease. Pacemaker check 03/26/2020: Episodes of atrial fibrillation noted. Assessment/Plan Diagnoses and all orders for this visit: Chronic diastolic heart failure (CMS/HCC) - Transthoracic echo (TTE) complete; Future Paroxysmal atrial fibrillation (CMS/HCC) - Transthoracic echo (TTE) complete; Future Primary hypertension - amLODIPine (Norvasc) 5 mg tablet; Take 1 tablet (5 mg) by mouth in the morning. 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 I continue aspirin 81 mg daily. He has no angina. continue current medical therapy. He is on Leqvio. I will check lipids and liver panel. Diastolic heart failure: compensated. continue current torsemide 20 mg daily. AV block: s/p pacemaker. Completely dependent on pacemaker and pacing 100%. I will check an echocardiogram to follow-up on ventricular function. Hypertension: His blood pressure is not controlled. I will add amlodipine 5 mg daily. I told him that he we should target a systolic blood pressure of 130 mmHg. Thrombosed IVC filter: medical therapy, he continues to be on warfarin. Paroxysmal atrial fibrillation: Picked up on device check. He is already on warfarin therapy. He should continue that. Follow up in about 1 year (around 02/18/2025). Eduard Hopson MD ALLERGIES DATE TYPE / CODE NAME / CODE REACTION SEVERITY SOURCE 08/25/2014 DRUG INGREDI/840096 003(SNOMED CT) CELECOXIB Itching [facility] 08/25/2014 Drug Class/90986939 3(SNOMED CT) [id number] REDUCTASE INHIBITORS Other~Rash [facility] ENCOUNTERS ADMIT/DISCHARGE ACCOUNT NUMBER ADMITTING ENCOUNTER CLASS LOCATION SOURCE 01/06/2025 [id number] Ambulatory Building:[facility] C [facility] 12/27/2024/ 5 [id number] Ambulatory Building:[facility] 08/22/2024/ 4 [id number] Ambulatory Building:[facility] 06/28/2024/ 4 [id number] Ambulatory Building:[facility] 06/03/2024/ 4 [id number] Ambulatory Building:[facility] 04/13/2024/ 4 [id number] Ambulatory Building:[facility] 02/19/2024/ 4 [id number] Ambulatory Building:[facility] PAYERS ENCOUNTER GUARANTOR PAYER SUBSCRIBER SOURCE 12/27/2024 Primary Insurance:MEDICAREPolicy Number: [id number] Date:[id number] Name:Medicare DYLON LOWE: [id number] [place] [address] [facility] 12/27/2024 Secondary Insurance:[facility] MEDICAREPolicy Number: [id number] Date:2024-09-07 DYLON LOWE: [id number] [place] [address] [facility] 08/22/2024 Primary Insurance:MEDICAREPolicy Number: [id number] Date:[id number] Name:Medicare DYLON LOWE: [id number] [place] [id number] [facility] 08/22/2024 Secondary Insurance:[facility] MEDICAREPolicy Number: [id number] Date:2022-09-07 DYLON LOWE: [id number] [place] [id number] [facility] 06/28/2024 Primary Insuranc e:[facility] MEDICAREPolicy Number: [id number] Date:2022-09-07 DYLON LOWE: [id number] [place] [address] [facility] 06/03/2024 Primary Insuranc e:[facility] MEDICAREPolicy Number: [id number] Date:2022-09-07 DYLON LOWE: [id number] [place] [address] [facility] 04/13/2024 Primary Insuranc e:[facility] MEDICAREPolicy Number: [id number] Date:2022-09-07 DYLON LOWE: [id number] [place] [address] [facility] 02/19/2024 Primary Insuranc e:[facility] MEDICAREPolicy Number: [id number] Date:2022-09-07 DYLON LOWE: [id number] [place] [address] [facility]
--- OUTSIDE RECORDS SUMMARY | 2025-01-23 05:27 | XMS_ITS ---
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 09 Assessments Encounter Date Diagnosis (ICD Code) Assessment Notes Treatment Notes Treatment Clinical Notes Section Notes 01/23/2025 Other insomnia (ICD-10 - G47.09) Plan Of Treatment Medication Medication Name Sig Start Date Stop Date Notes Temazepam 30 MG 1 capsule at bedtime as needed Orally dx G47.00 Once a day for 30 days 01/23/2025 Progress Notes * Dylon FRANCIS KDOB: [birth year] (79 yo M)Acc No.[id number]:01/23/2025 Patient: Sushant KEVINDylon :1945 A ge:79 Y S ex:Male Address:[address] [place] [id number] * Refills Refill Temazepam Capsule, 30 MG, Orally dx G47.00, 30, 1 capsule at bedtime as needed, Once a day, 30 days, Refills=0 * true * Date: Generated for Sergio quintero/Gurwinder/Willy on: 0 01/26/2025 02:29 PM EDT
--- OUTSIDE RECORDS SUMMARY | 2025-01-26 14:29 | XMS_ITS | Clinical Summary ---
Author Organization [facility] Address [address] [place] [address] Care Team Providers Care President [employer] Name Role Phone John Stark MD Primary Care Provider [phone] Allergies Active Allergy Reactions Criticality Noted Date Comments Celecoxib Itching 08/25/2014 Wpbnpiv-Yjh-Isf Reductase Inhibitors Other,Rash Low 08/25/2014 Medications Medication Sig Dispensed Refills Start Date End Date Status amitriptyline (Elavil) 25 mg tablet Take 1 tablet every day by oral route. Active aspirin 81 mg EC tablet in the morning. Active ferrous sulfate 325 (65 Fe) MG tablet every 12 (twelve) hours. Active nitroglycerin (Nitrostat) 0.4 mg SL tablet nitroglycerin 0.[address] 1 TABLET (0.4 MG) BY SUBLINGUAL ROUTE AT 1ST SIGN OF ATTACK; MAY REPEAT EVERY 5 MINUTES UP TO 3 TABS; IF NO RELIEF SEEK MEDICAL HELP 06/01/2017 Active omeprazole (PriLOSEC) [address] capsule omeprazole 40 mg capsule,delayed release TAKE 1 CAPSULE BY MOUTH EVERY DAY 06/13/2020 Active temazepam (Restoril) 30 mg capsule TAKE 1 CAPSULE BY MOUTH EVERY NIGHT 10/01/2022 Active warfarin (Coumadin) 5 mg tablet warfarin 5 mg tablet TAKE DAILY DIRECTED BY COUMADIN CLINIC 08/26/2022 Active cholecalciferol, vitamin D3, 50 mcg (2,000 unit) capsule Take 1 capsule every day by oral route. Active ezetimibe (Zetia) 10 mg tabletIndications:Ot her hyperlipidemia Take 1 tablet (10 mg) by mouth in the morning. 90 tablet 3 02/22/2024 Active dapagliflozin propanediol (Farxiga) 10 mgIndications:Chroni c systolic heart failure (CMS/HCC) Take 1 tablet (10 mg) by mouth in the morning. 90 tablet 3 04/13/2024 5 Active spironolactone (Aldactone) 25 mg tabletIndications:Ch ronic systolic heart failure (CMS/HCC) Take 0.5 tablets (12.5 mg) by mouth in the morning. 45 tablet 3 04/13/2024 5 Active sacubitril-valsartan (Entresto) 24-26 mg tabletIndications:Ch ronic systolic heart failure (CMS/HCC) Take 1 tablet by mouth two times daily. 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 180 tablet 3 04/18/2024 5 Active carvedilol (Coreg) 6.25 mg tabletIndications:Ch ronic systolic heart failure (CMS/HCC) Take 3 tablets (18.75 mg) by mouth with breakfast and with evening meal. 540 tablet 3 06/28/2024 5 Active isosorbide mononitrate ER (Imdur) 30 mg 24 hr tabletIndications:Ch est pain, unspecified type TAKE 1 TABLET BY MOUTH ONE TIME A DAY 90 tablet 3 06/28/2024 Active Additional Information Patient taking differently: 30 mg oral Daily, (No instructions reported), Reported on 08/22/2024 inclisiran (Leqvio) 284 mg/1.5 mL syringeIndications:M ixed hyperlipidemia Inject 1.5 mL (284 mg) under the skin every 6 (six) months. (Inject 1.5mL in Oct 2024 and again in Apr 2025.) 2 mL 09/08/2024 Active insulin aspart (NovoLOG) 100 unit/mL injection vial Inject 100 Units under the skin with breakfast, with lunch, and with evening meal. Active Active Problems Problem Noted Date Diagnosed Date Encounter for fitting and adjustment of hearing aid 08/22/2024 Sensorineural hearing loss, bilateral 06/03/2024 Irritable bowel syndrome 02/19/2024 Persistent insomnia 02/19/2024 Pure hypercholesterolemia 02/19/2024 Anemia 08/24/2023 08/24/2023 Cardiac pacemaker in situ 08/24/20232022 Daily use of moist tobacco 08/24/202308/24 Diabetes mellitus 08/24/2023 08/24/2023 History of deep venous thrombosis 08/24/2023 08/24/2023 Osteoarthritis 08/24/2023 08/24/2023 Pulmonary embolism 08/24/2023 08/24/2023 Sleep apnea 08/24/2023 08/24/2023 Vitamin D deficiency 08/24/2023 08/24/2023 Anticoagulated 10/22/2022 BPH with urinary obstruction 10/22/2022 Bradycardia 10/22/2022 Cardiovascular stress test abnormal 10/22/2022 Chest pain 10/22/2022 CAD (coronary artery disease) 10/22/2022 Assessment & Plan (10/22/2022 1:26 PM EST): Coronary artery disease is stable -Continue aspirin 81 mg, Imdur 30 mg daily, Coreg 6.25 mg twice daily and Leqvio injection -Per recent documentation I will restart Zetia and have patient follow-up in 3 to 4 months with lipids as these were not drawn with his recent labs Deep venous thrombosis of lower extremity 2022 Diastolic heart failure 10/22/2022 Assessment & Plan (10/22/2022 1:31 PM EST): - Compensated today -NYHA I-IIb -Continue GDMT: Coreg, torsemide -Consider additional medications on follow-up as it is difficult to gauge his baseline blood pressure since he has not taken medications today nor do I have recent lab work Diverticulitis of colon 10/22/2022 Perforation of colon 10/22/2022 Fatigue 10/22/2022 Former smoker 10/22/2022 Frequent urination 10/22/2022 BMI 40.0-44.9, adult 10/22/2022 Nocturia 10/22/2022 Morbid obesity 10/22/2022 Poor urinary stream 10/22/2022 Weak urine stream 10/22/2022 Stage 3 chronic kidney disease 10/22/2022 Swelling of lower leg 10/22/2022 Urge incontinence 10/22/2022 Urinary hesitancy 10/22/2022 Paroxysmal atrial fibrillation 08/17/2019 Assessment & Plan (10/22/2022 1:30 PM EST): - [id number] (age, hypertension, history of DVT, CHF) -Continue warfarin -No concerns for A-fib or arrhythmia on device check Hyperlipidemia 11/25/2016 IVC thrombosis 11/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 Pain in both lower extremities 11/25/2016 Primary hypertension 11/25/2016 Benign prostatic hyperplasia 06/01/2012 Coronary atherosclerosis 06/01/2012 Disorder of nervous system due to type 2 diabete s mellitus 06/01/2012 Dizziness and giddiness 06/01/2012 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 06/01/2012 Obesity 06/01/2012 Peripheral vascular disease 06/01/2012 Type 2 diabetes mellitus without complication Encounters Date Type Department Care Team Description 12/27/2024 1:30 PM EDT Ancillary Procedure [facility] Heart at [address] [address] Encounter for implantable defibrillator reprogramming or check from Last 3 Months Social History Tobacco Use Types Packs/Day Years Used Date Smoking Tobacco: Former Cigarettes Smokeless Tobacco: Never Tobacco Cessation:Counseling Given: Not Answered Alcohol Use Standard Drinks/Week Comments Never 0 (1 standard drink = 0.6 oz pur e alcohol) [place] Safety & Environment Answer Date Rec orded Fear of Current or Ex-Partner Not on file Emotionally Abused Not on file 10/29/2023 Physically Abused Not on file 10/29/2023 Sexually Abused Not on file 10/29/2023 Physically or Sexually Abused Not on file Sex and Gender Information Value Date Recorded Sex Assigned at Not on file Gender Identity Not on file Sexual Orientation Not on file Last Filed Vital Signs Vital Sign Reading Time Taken Comments Blood Pressure 122/74 08/22/2024 11:46 AM EST Pulse 73 08/22/2024 11:46 AM EST Temperature - - Respiratory Rate - - Oxygen Saturation 91% 08/22/2024 11:46 AM EST Inhaled Oxygen Concentration - - Weight 93.4 kg (206 lb) 08/22/2024 11:46 AM EST Height 177.8 cm (5' 10 ) 08/22/2024 11:46 AM EST Body Mass Index 29.56 08/22/2024 11:46 AM EST Plan of Treatment Upcoming Encounters Date Type Department Care Team (Late st Contact Info) Description 02/06/2025 2:00 PM EDT Office Visit [facility] Heart at [facility] [address] [place] [address] Pacheco Hopson MD [address] [facility] [place] [id number] Health Maintenance Due Date Last Done Comments Diabetes: Hemoglobin A1C 1945 Medicare Annual Wellness (AWV) 1945 Diabetes: Retinopathy Screening 12/09/1953 Depression Screening 1955 Diabetes: Urine Protein Screening 12/09/1962 Fall Risk Screening 12/09/2008 Pneumococcal Vaccine: 65+ Years (2 of 2 - PPSV23 or PCV20) 02/06/2016 12/12/2015, 08/27/2001 COVID-19 Vaccine ( season) 2024 05/31/2024, 06/30/2023, 07/23/2022, Additional history exists Adult Tetanus 02/21/2028 02/20/2018, 12/20/2002 Zoster Vaccines Completed 07/20/2019, 07/23/2018 Influenza Vaccine Completed 05/31/2024, , 07/08/2019, Additional history exists HIB Vaccines Aged Out No longer eligi ble based on patient's age to complete this topic HPV Vaccines Aged Out No longer eligi ble based on patient's age to complete this topic IPV Vaccines Aged Out No longer eligi ble based on patient's age to complete this topic Meningococcal B Vaccine Aged Out No l onger eligible based on patient's age to complete this topic Meningococcal Vaccine Aged Out No lorenzo ana eligible based on patient's age to complete this topic Rotavirus Vaccines Aged Out No longer eligible based on patient's age to complete this topic Procedures Procedure Name Priority Date/Time Associated Diagnosis Comments CARDIAC DEVICE CHECK CHECK - REMOTE Routine 01/06/2025 11:35 AM EDT Adjustment and management of cardiac pacemaker CARDIAC DEVICE CHECK - IN CLINIC - PACEMAKER DUAL CHAMBER W/ PROG Routine 01/05/2025 11:53 AM EDT Encounter for implantable defibrillator reprogramming or check from Last 3 Months Results * CARDIAC DEVICE CHECK - REMOTE - PACEMAKER (01/06/2025 11:35 AM EDT) Aaron Doan MD CV IMPLANTABLE CARDI AC DEVICE PROCEDURES CPACS * CARDIAC DEVICE CHECK - IN CLINIC - PACEMAKER DUAL CHAMBER W/ PROG (01/05/2025 11:53 AM EDT) Anatomical Region Laterality Modality Other Narrative 01/17/2025 9:46 PM EDT By using the attestations below, the signing clinician agrees that I have read and verify that the documentation has been personally reviewed by me and ensure that the documentation accurately reflects the encounter. Routine EP device follow up as per schedule. Please see attached note Aaron Doan MD CV IMPLANTABLE CARDI AC DEVICE PROCEDURES from Last 3 Months Care Teams President [employer] Relationship Specialty Start Date End Date John Stark MD [address] [facility] [place], [place] [id number] PCP - General 10/22/22
--- OUTSIDE RECORDS SUMMARY | 2025-01-26 14:30 | XMS_ITS | Clinical Summary ---
Author Organization [facility] Address [address] [place] [address] Care Team Providers Care Director [employer] Name Role Phone John Stark MD Primary Care Provider [phone] Allergies Active Allergy Reactions Criticality Noted Date Comments Phaqmyp-Wzt-Ehi Reductase Inhibitors Rash 10/17/2016 Medications aspirin, enteric coated (ASPIRIN, ENTERIC COATED) 81 mg EC tablet Take 81 mg by mouth once daily. Active torsemide (DEMADEX) 20 mg tablet Take 20 mg by mouth once daily. Active POTASSIUM ORAL Take 20 mg by mouth once daily. Active OMEPRAZOLE ORAL Take 20 mg by mouth once daily. Active isosorbide mononitrate ER (IMDUR) 30 mg 24 hr tablet Take 30 mg by mouth once daily. Active Cholecalciferol, Vitamin D3, (VITAMIN D-3) 2,000 unit cap Take by mouth. Active WARFARIN SODIUM (WARFARIN ORAL) Take by mouth. 5mg x 3 days and 7.5mg x 4 days Active FERROUS SULFATE (IRON ORAL) Take 325 mg by mouth twice daily. Active temazepam (RESTORIL) 15 mg cap Take by mouth at bedtime as needed. Active POLYETHYLENE GLYCOL 3350 (MIRALAX ORAL) Take by mouth. Active NIFEdipine XL (ADALAT CC) 30 mg 24 hr tablet Take 1 tablet by mouth once daily. 30 tablet 11/25/2016 Active Active Problems Problem Noted Date Diagnosed Date Primary hypertension 11/25/2016 Pain in both lower extremities 11/25/2016 IVC thrombosis 11/25/2016 Hyperlipidemia 11/25/2016 Social History Tobacco Use Types Packs/Day Years Used Date Smoking Tobacco: Former Smokeless Tobacco: Current Chew Sex and Gender Information Value Date Recorded Sex Assigned at Not on file Legal Sex Male 12:45 PM EST Gender Identity Not on file Sexual Orientation Not on file Last Filed Vital Signs Vital Sign Reading Time Taken Comments Blood Pressure 191/84 11/25/2016 11:28 AM EDT (from Extended Vitals) Pulse 62 11/25/2016 11:28 AM EDT (from Extended Vitals) Temperature 36.7 C (98 F) 11/25/2016 11:25 AM EDT Respiratory Rate - - Oxygen Saturation 98% 11/25/2016 11: 25 AM EDT Inhaled Oxygen Concentration - - Weight 132.8 kg (292 lb 11.2 oz) 11/25/2016 11:25 AM EDT Height 179.1 cm (5' 10.5 ) 11/25/2016 1 1:25 AM EDT Body Mass Index 41.4 11/25/2016 11:25 AM EDT Plan of Treatment Health Maintenance Due Date Last Done Comments Anxiety Screening 12/09/1961 Depression Screening 12/09/1961 DTaP,Tdap,Td Vaccine (1 - Tdap) 12/09/1962 Diabetes Screening 12/09/1988 Pneumococcal Vaccine: 50+ (1 of 1 - PCV) 12/09/1993 Shingrix Vaccine (1 of 2) 12/09/1993 RSV Vaccine (1 - 1-dose 75+ series) 12/09/2018 Covid-19 Vaccine ( - season) 2024 Advance Directive Discussion 09/07/2024 Influenza Vaccine (Season Ended) 2025 Insurance MEDICARE Member Subscriber Plan / Payer (Ef fective 2016-Present) Name:YANN FRANCIS Relation to Subscriber:Self Name:Yann Francis Payer ID:Not on file Group ID:Not on file Type:Medicare Address: [facility] [address] [place] [address] Care Teams Director Nurses' Registry Relationship Specialty Start Date End Date John Stark MD PCP - General Family Medicine 09/22/16
--- OUTSIDE RECORDS SUMMARY | 2025-01-26 14:30 | XMS_ITS | Patient Health Record ---
Author Organization [facility] in [place] Address [address] [place] [address] Care Team Providers Care Engineer Name Role Phone Omid Almeida Primary Care Provider [phone] CHARLIE ALMEIDA Unavailable [phone] Yasmin Lubin Unavailable [phone] Allergies Allergen (clinical drug ingredient) Drug/Non Drug Allergy documented on EMR Reaction Allergy Type Onset Date Status celecoxib CeleBREX Unknown Drug Allergy Active atorvastatin Lipitor Unknown Drug Allergy Acti ve Results Component Value Reference Range Notes CA echo doppler complete Reviewed date:03/16/2024 08:13:00 PM Interpretation: Performing Lab: Notes/Report: Source Facility: [place] [address] Cardiology Report Signed Patient: DYLON FRANCIS MR#: [id number] : 1945 Acct:[id number] Age/Sex: 78 / M ADM Date: 03/15/24 Loc: CARD Attending Dr: EDUADR HOPSON Ordering Physician: EDUARD HOPSON Date of Service: 03/15/24 Procedure(s): CA echo doppler complete Accession Number(s): [id number] cc: Charlie Almeida M.D.; EDUARD HOPSON Patient Name: DYLON FRANCIS MR#: [id number] : 1945 Exam Date: 03/15/2024 Ordering Doctor: DR EDUARD MOUKARBEL M.D. ECHOCARDIOGRAM REPORT PROCEDURE: CA ECHO DOPPLER COMPLETE INDICATIONS: Diastolic heart failure, Atrial fibrillation COMPARISON: None. DESCRIPTION: COMPLETE ECHOCARDIOGRAM Real-time transthoracic echocardiography with 2D, M-mode, spectral and color flow Doppler performed. QUALITY: Technical quality was good. LEFT VENTRICLE: Normal chamber size. Thickened septal wall. LV EF: Global left ventricular systolic function is moderately decreased. Visual estimation of left ventricular ejection fraction is 35-40%. Global hypokinesis. DIASTOLIC: Grade 1 diastolic dysfunction. ATRIAL SEPTUM: Inadequately seen. LEFT ATRIUM: Mild dilatation. RIGHT ATRIUM: Mild dilatation. RIGHT VENTRICLE: Normal chamber size. Normal right ventricular systolic function. Pacer wire present. TRICUSPID VALVE: Normal mobility and thickness. No stenosis with trivial regurgitation. No evidence of pulmonary hypertension. RVSP 23mmHg MITRAL VALVE: Normal mobility and thickness. No evidence of mitral valve stenosis. There is no mitral annular calcification. No mitral regurgitation. AORTIC VALVE: Normal trileaflet appearance. No visible sclerosis. Normal leaflet mobility. No evidence of aortic valve stenosis. No aortic regurgitation. AORTIC ROOT: Normal diameter and appearance. PULMONIC VALVE: Grossly normal. No stenosis. No regurgitation. PERICARDIUM: No evidence of pericardial effusion. IVC: Collapses with inspirations. Normal size CONCLUSION: 1. Global left ventricular systolic function is moderately reduced; visually estimated ejection fraction of 35 to 40% 2. Right ventricle is normal in size and systolic function 3. Grade 1 diastolic dysfunction 4. Biatrial enlargement 5. No significant valvular abnormalities Adult Echocardiography Procedure Report Left Ventricle LVEDD (3.7 - 5.6 cm): 4.92 cm LVESD (2.2 - 4.0 cm): 4.09 cm LVIVS thickness (0.6 - 1.2 cm): 1.79 cm LVPW thickness (0.5 - 1.0 cm): 0.82 cm e': 0.08 m/s E - e': 6.38 LVOT Max Gradient: 2.18 mm[Hg] LVOT Area (cm2): 0.74 m/s Peak Velocity (LVOT): 0.74 m/s Mean Velocity (LVOT): 0.48 m/s LVOT Diameter 2.00 cm Left Atrium LA Volume Index (2D A2C): 36.77 ml/m2 Left Atrium Systolic Dimension: 3.38 cm Mitral Valve MV E to A Ratio: 0.55 Mitral Valve A-Wave Peak Velocity: 0.88 m/s Mitral Valve E-Wave Peak Velocity: 0.49 m/s Right Ventricle RV Internal Diastolic Dimension: 3.58 cm Aorta AO Root Diam: 3.35 cm Aortic Valve AoV Area (Peak Johnathon): 1.98 cm2, 1.98 cm2 AoV Area (VTI): 1.81 cm2, 1.81 cm2 Peak Velocity(Antegrade Flow): 1.17 m/s Peak Gradient(Antegrade Flow): 5.49 mm[Hg] Mean Velocity(Antegrade Flow): 0.79 m/s Mean Gradient(Antegrade Flow): 2.91 mm[Hg] Velocity Time Integral: 23.92 cm Tricuspid Valve Peak Velocity (Regurgitant Flow): 2.23 m/s Pulmonic Valve Mean Gradient: 2.86 mm[Hg] Mean Velocity: 0.81 m/s Peak Velocity: 1.13 m/s Peak Gradient: 5.08 mm[Hg] Right Atrium Right Atrium Systolic Pressure: 58.33 ml, 58.33 ml Dictated by: Dai Sanabria M.D. on 03/16/2024 at 10:34 Approved by: Dai Sanabria M.D. on 03/16/2024 at 10:40 Dictated By: Dai Sanabria M.D. Signed By: 03/16/24 1041 DD/ 1040 TD/TT: Steward/Stewardess Banquet: [place] [address] Cardiology Report Signed Patient: ANGELLA FRANCIS MR#: [id number] : 1945 Acct:[id number] Age/Sex: 78 / M ADM Date: 03/15/24 Loc: CARD Attending Dr: EDUARD HOPSON Ordering Physician: EDUARD HOPSON Date of Service: 03/15/24 Procedure(s): CA ech o doppler complete Accession Number(s): [id number] cc: Charlie Almeida M.D. ; EDUARD HOPSON Patient Name: DYLON FRANCIS MR#: [id number] : 1945 Exam Date: 03/15/2024 Ordering Doctor: DR EDUARD HOPSON M.D. ECHOCARDIOGRAM REPORT PROCEDURE: CA ECHO DOPPLER COMPLETE INDICATIONS: Diastol ic heart failure, Atrial fibrillation COMPARISON: None. DESCRIPTION: COMPLET E ECHOCARDIOGRAM Real-time transthoracic echocardiography wit h 2D, M-mode, spectral and color flow Doppler performed. QUALITY: Technical quality was good. LEFT VENTRICLE: Norm al chamber size. Thickened septal wall. LV EF: Global left ventricular systolic function is moderately decreased. Visual estimation of left ventricular ejection fraction is 35-40%. Global hypokinesis. DIASTOLIC: Grade 1 diastolic dysfunction. ATRIAL SEPTUM: Inadequately seen. LEFT ATRIUM: Mild dilatation. RIGHT ATRIUM: Mild dilatation. RIGHT VENTRICLE: Nor mal chamber size. Normal right ventricular systolic function. Pacer wire present. TRICUSPID VALVE: Nor mal mobility and thickness. No stenosis with trivial regurgitation. No evidence of pulmonary hypertension. RVSP 23mmHg MITRAL VALVE: Normal mobility and thickness. No evidence of mitral valve stenosis. There is n o mitral annular calcification. No mitral regurgitation. AORTIC VALVE: Margaret l trileaflet appearance. No visible sclerosis. Normal leaflet mobility. No evidence of aortic valve stenosis. No aortic regurgitation. AORTIC ROOT: Normal diameter and appearance. PULMONIC VALVE: Quan sly normal. No stenosis. No regurgitation. PERICARDIUM: No evid ence of pericardial effusion. IVC: Collapses with inspirations. Normal size CONCLUSION: 1. Global left ventricular systolic function is moderately reduced; visually estimated ejection fraction of 35 to 40% 2. Right ventricle i s normal in size and systolic function 3. Grade 1 diastolic dysfunction 4. Biatrial enlargement 5. No significant valvular abnormalities Adult Echocardiograp hy Procedure Report Left Ventricle LVEDD (3.7 - 5.6 cm) : 4.92 cm LVESD (2.2 - 4.0 cm) : 4.09 cm LVIVS thickness (0.6 - 1.2 cm): 1.79 cm LVPW thickness (0.5 - 1.0 cm): 0.82 cm e': 0.08 m/s E - e': 6.38 LVOT Max Gradient: 2 .18 mm[Hg] LVOT Area (cm2): 0.7 4 m/s Peak Velocity (LVOT) : 0.74 m/s Mean Velocity (LVOT) : 0.48 m/s LVOT Diameter 2.00 cm Left Atrium LA Volume Index (2D A2C): 36.77 ml/m2 Left Atrium Systolic Dimension: 3.38 cm Mitral Valve MV E to A Ratio: 0.55 Mitral Valve A-Wave Peak Velocity: 0.88 m/s Mitral Valve E-Wave Peak Velocity: 0.49 m/s Right Ventricle RV Internal Diastoli c Dimension: 3.58 cm Aorta AO Root Diam: 3.35 cm Aortic Valve AoV Area (Peak Johnathon): 1.98 cm2, 1.98 cm2 AoV Area (VTI): 1.81 cm2, 1.81 cm2 Peak Velocity(Antegr silviano Flow): 1.17 m/s Peak Gradient(Antegr silviano Flow): 5.49 mm[Hg] Mean Velocity(Antegr silviano Flow): 0.79 m/s Mean Gradient(Antegr silviano Flow): 2.91 mm[Hg] Velocity Time Integr al: 23.92 cm Tricuspid Valve Peak Velocity (Regurgitant Flow): 2.23 m/s Pulmonic Valve Mean Gradient: 2.86 mm[Hg] Mean Velocity: 0.81 m/s Peak Velocity: 1.13 m/s Peak Gradient: 5.08 mm[Hg] Right Atrium Right Atrium Systoli c Pressure: 58.33 ml, 58.33 ml Dictated by: Dai Sanabria M.D. on 03/16/2024 at 10:34 Approved by: Dai Sanabria M.D. on 03/16/2024 at 10:40 Dictated By: Dai Sanabria M.D. Signed By: 03/16/24 1041 DD/ 1040 TD/TT: Steward/Stewardess Banquet: PROF DAVIDE Wilkins ([facility]) Reviewed date:06/02/2024 06:48:00 PM Interpretation: Performing Lab: Notes/Report: [facility] , Sodium 136 136-145 mmol/L Potassium 4.5 3.5-5.1 mmol/L Chloride 101 98-107 mmol/L Carbon Dioxide 33.3 21.0-32.0 mmol/L Anion Gap 6.2 Glucose 79 74-106 mg/dL Blood Urea Nitrogen 22.0 7.0-18.0 mg/dL Creatinine 1.18 0.70-1.30 mg/dL Estimated GFR ( Trudi >60 >=60 Estimated GFR (Non- Jolie 59 >=60 BUN Creatinine Ratio 18.6 Calcium 9.2 8.5-10.1 mg/dL Performing Lab: see note ML - [facility] CA echo doppler complete Reviewed date:08/02/2024 07:04:33 PM Interpretation: Performing Lab: Notes/Report: Source Facility: [facility]-[address] [place] [address] [address] Cardiology Report Signed Patient: DYLON FRANCIS MR#: [id number] : 1945 Acct:[id number] Age/Sex: 78 / M ADM Date: 08/02/24 Loc: CARD Attending Dr: EDUARD HOPSON Ordering Physician: EDUARD HOPSON Date of Service: 08/02/24 Procedure(s): CA echo doppler complete Accession Number(s): [id number] cc: Charlie Almeida M.D.; EDUARD HOPSON Patient Name: DYLON FRANCIS MR#: [id number] : 1945 Exam Date: 08/02/2024 Ordering Doctor: DR EDUARD HOPSON M.D. ECHOCARDIOGRAM REPORT PROCEDURE: CA ECHO DOPPLER COMPLETE INDICATIONS: Heart failure with reduced ejection fraction, cardiac stents, hypertension, diabetes, pacemaker COMPARISON: None. DESCRIPTION: COMPLETE ECHOCARDIOGRAM Real-time transthoracic echocardiography with 2D, M-mode, spectral and color flow Doppler performed. QUALITY: Technical quality was adequate. LEFT VENTRICLE: Normal chamber size. Thickened septal wall. Mild to moderate concentric hypertrophy. Abnormal septal motion likely due to pacing. Systolic function is difficult to assess due to abnormal septal motion and poor sound transmission but appears moderately reduced. LV EF: Moderately reduced left ventricular ejection fraction, (40%). DIASTOLIC: ATRIAL SEPTUM: LEFT ATRIUM: Normal chamber size. RIGHT ATRIUM: Normal chamber size. RIGHT VENTRICLE: Normal chamber size. Normal systolic function. TRICUSPID VALVE: Normal mobility and thickness. No stenosis with trivial regurgitation. No evidence of pulmonary hypertension. RVSP 23 mmHg MITRAL VALVE: Normal mobility and thickness. No evidence of mitral valve stenosis. Mild mitral annular calcification. No mitral regurgitation. AORTIC VALVE: Normal trileaflet appearance. No visible sclerosis. Normal leaflet mobility. No evidence of aortic valve stenosis. Trivial aortic regurgitation. AORTIC ROOT: Normal diameter and appearance. PULMONIC VALVE: Not well visualized. PERICARDIUM: No evidence of pericardial effusion. IVC: Not well visualized. PLEURA: CONCLUSION: 1. The left ventricle is normal in size. Systolic function is difficult to assess but appears to be moderately reduced. Estimated LVEF is 40%. 2. Normal right ventricular size and systolic function. 3. No significant valvular dysfunction. 4. Normal right-sided pressures. Adult Echocardiography Procedure Report Left Ventricle LVEDD (3.7 - 5.6 cm): 4.41 cm LVESD (2.2 - 4.0 cm): 2.66 cm LVIVS thickness (0.6 - 1.2 cm): 1.21 cm LVPW thickness (0.5 - 1.0 cm): 1.64 cm e': 0.09 m/s E - e': 5.13 LVOT Max Gradient: 1.67 mm[Hg] LVOT Area (cm2): 0.65 m/s Peak Velocity (LVOT): 0.65 m/s Mean Velocity (LVOT): 0.42 m/s LVOT Diameter 2.33 cm Left Atrium LA Volume Index (2D A2C): 35.60 ml/m2 Left Atrium Systolic Dimension: 2.94 cm Mitral Valve MV E to A Ratio: 0.52 Mitral Valve A-Wave Peak Velocity: 0.92 m/s Mitral Valve E-Wave Peak Velocity: 0.47 m/s Right Ventricle Aorta AO Root Diam: 3.95 cm Aortic Valve AoV Area (Peak Johnathon): 3.06 cm2, 3.06 cm2 AoV Area (VTI): 3.42 cm2, 3.42 cm2 Peak Velocity(Antegrade Flow): 0.90 m/s Peak Gradient(Antegrade Flow): 3.21 mm[Hg] Mean Velocity(Antegrade Flow): 0.60 m/s Mean Gradient(Antegrade Flow): 1.73 mm[Hg] Velocity Time Integral: 18.71 cm Tricuspid Valve Peak Velocity (Regurgitant Flow): 2.24 m/s Pulmonic Valve Right Atrium Right Atrium Systolic Pressure: 54.84 ml, 54.84 ml Dictated by: Eduard Hopson M.D. on 08/02/2024 at 18:46 Approved by: Eduard Hopson M.D. on 08/02/2024 at 18:51 Dictated By: EDUARD HOPSON Signed By: 08/02/241851 DD/ 50 TD/TT: Steward/Stewardess Banquet: [place] [address] Cardiology Report Signed Patient: ANGELLA FRANCIS MR#: [id number] : 1945 Acct:[id number] Age/Sex: 78 / M ADM Date: 08/02/24 Loc: CARD Attending Dr: EDUARD HOPSON Ordering Physician: EDUARD HOPSON Date of Service: 08/02/24 Procedure(s): CA ech o doppler complete Accession Number(s): [id number] cc: Charlie Almeida M.D. ; EDUARD HOPSON Patient Name: DYLON FRANCIS MR#: [id number] : 1945 Exam Date: 08/02/2024 Ordering Doctor: DR EDUARD HOPSON M.D. ECHOCARDIOGRAM REPORT PROCEDURE: CA ECHO DOPPLER COMPLETE INDICATIONS: Heart failure with reduced ejection fraction, cardiac stents, hypertension, diabet es, pacemaker COMPARISON: None. DESCRIPTION: COMPLET E ECHOCARDIOGRAM Real-time transthoracic echocardiography wit h 2D, M-mode, spectral and color flow Doppler performed. QUALITY: Technical quality was adequate. LEFT VENTRICLE: Norm al chamber size. Thickened septal wall. Mild to moderate concentric hypertrophy. Abnormal septal motion likely due to pacing. Systolic function is difficult to assess due to abnormal septal motion and poor sound transmiss ion but appears moderately reduced. LV EF: Moderately reduced left ventricular ejection fraction, (40%). DIASTOLIC: ATRIAL SEPTUM: LEFT ATRIUM: Normal chamber size. RIGHT ATRIUM: Normal chamber size. RIGHT VENTRICLE: Nor mal chamber size. Normal systolic function. TRICUSPID VALVE: Nor mal mobility and thickness. No stenosis with trivial regurgitation. No evidence of pulmonary hypertension. RVSP 23 mmHg MITRAL VALVE: Normal mobility and thickness. No evidence of mitral valve stenosis. Mild nadia l annular calcification. No mitral regurgitation. AORTIC VALVE: Normal trileaflet appearance. No visible sclerosis. Normal leaflet mobility. No evidence of aortic valve stenosis. Trivial aortic regurgitation. AORTIC ROOT: Normal diameter and appearance. PULMONIC VALVE: Not well visualized. PERICARDIUM: No evid ence of pericardial effusion. IVC: Not well visualized. PLEURA: CONCLUSION: 1. The left ventricl e is normal in size. Systolic function is difficult to assess but appears t o be moderately reduced. Estimated LVEF is 40%. 2. Normal right ventricular size and systolic function. 3. No significant valvular dysfunction. 4. Normal right-side d pressures. Adult Echocardiograp hy Procedure Report Left Ventricle LVEDD (3.7 - 5.6 cm) : 4.41 cm LVESD (2.2 - 4.0 cm) : 2.66 cm LVIVS thickness (0.6 - 1.2 cm): 1.21 cm LVPW thickness (0.5 - 1.0 cm): 1.64 cm e': 0.09 m/s E - e': 5.13 LVOT Max Gradient: 1 .67 mm[Hg] LVOT Area (cm2): 0.6 5 m/s Peak Velocity (LVOT) : 0.65 m/s Mean Velocity (LVOT) : 0.42 m/s LVOT Diameter 2.33 cm Left Atrium LA Volume Index (2D A2C): 35.60 ml/m2 Left Atrium Systolic Dimension: 2.94 cm Mitral Valve MV E to A Ratio: 0.52 Mitral Valve A-Wave Peak Velocity: 0.92 m/s Mitral Valve E-Wave Peak Velocity: 0.47 m/s Right Ventricle Aorta AO Root Diam: 3.95 cm Aortic Valve AoV Area (Peak Johnathon): 3.06 cm2, 3.06 cm2 AoV Area (VTI): 3.42 cm2, 3.42 cm2 Peak Velocity(Antegr silviano Flow): 0.90 m/s Peak Gradient(Antegr silviano Flow): 3.21 mm[Hg] Mean Velocity(Antegr silviano Flow): 0.60 m/s Mean Gradient(Antegr silviano Flow): 1.73 mm[Hg] Velocity Time Integr al: 18.71 cm Tricuspid Valve Peak Velocity (Regurgitant Flow): 2.24 m/s Pulmonic Valve Right Atrium Right Atrium Systoli c Pressure: 54.84 ml, 54.84 ml Dictated by: Eduard Hopson M.D. on 08/02/2024 at 18:46 Approved by: Eduard Hopson M.D. on 08/02/2024 at 18:51 Dictated By: EDUARD HOPSON Signed By: 08/02/241851 DD/ 50 TD/TT: Steward/Stewardess Banquet: TRACIE echo doppler complete Reviewed date:01/24/2025 08:43:09 PM Interpretation: Performing Lab: Notes/Report: Source Facility: [place] [address] Cardiology Report Signed Patient: DYLON FRANCIS MR#: [id number] : 1945 Acct:[id number] Age/Sex: 79 / M ADM Date: 01/24/25 Loc: CARD Attending Dr: EDUARD HOPSON Ordering Physician: EDUARD HOPSON Date of Service: 01/24/25 Procedure(s): CA echo doppler complete Accession Number(s): [id number] cc: Charlie Almeida M.D.; EDUARD HOPSON Patient Name: DYLON FRANCIS MR#: [id number] : 1945 Exam Date: 01/24/2025 Ordering Doctor: DR EDUARD HOPSON M.D. ECHOCARDIOGRAM REPORT PROCEDURE: CA ECHO DOPPLER COMPLETE INDICATIONS: Chronic systolic heart failure, pacemaker, diabetes, hypertension COMPARISON: None. DESCRIPTION: COMPLETE ECHOCARDIOGRAM Real-time transthoracic echocardiography with 2D, M-mode, spectral and color flow Doppler performed. QUALITY: LEFT VENTRICLE: Normal chamber size. Moderate concentric left ventricular hypertrophy. Systolic function is at the lower limits of normal. LV EF: Lower limits of normal left ventricular ejection fraction, (50%). DIASTOLIC: Grade I diastolic dysfunction. ATRIAL SEPTUM: LEFT ATRIUM: Moderate dilatation. RIGHT ATRIUM: Normal chamber size. RIGHT VENTRICLE: Normal chamber size. Normal systolic function. Pacer wire present. TRICUSPID VALVE: Normal mobility and thickness. No stenosis with trivial regurgitation. Doppler studies reveal mildly (35-45) elevated right sided pressures. RVSP 44 mmHg MITRAL VALVE: Normal mobility and thickness. No evidence of mitral valve stenosis. There is no mitral annular calcification. AORTIC VALVE: Normal trileaflet appearance. No visible sclerosis. Normal leaflet mobility. No evidence of aortic valve stenosis. Trivial aortic regurgitation. AORTIC ROOT: Normal diameter and appearance, measuring 3.9 cm. PULMONIC VALVE: Not well visualized. PERICARDIUM: No evidence of pericardial effusion. IVC: IVC is dilated (2.3 cm), does not collapse. PLEURA: CONCLUSION: 1. Moderate concentric ventricular hypertrophy with low normal systolic function. LVEF is estimated at 50%. 2. Normal right ventricular size and systolic function. 3. No significant valvular dysfunction. 4. Moderate left atrial dilatation. 5. Mildly elevated right-sided pressures. RVSP is 44 mmHg. Adult Echocardiography Procedure Report Left Ventricle LVEDD (3.7 - 5.6 cm): 4.37 cm LVESD (2.2 - 4.0 cm): 3.68 cm LVIVS thickness (0.6 - 1.2 cm): 1.31 cm LVPW thickness (0.5 - 1.0 cm): 1.40 cm e': 0.13 m/s E - e': 3.01 LVOT Max Gradient: 1.80 mm[Hg] LVOT Area (cm2): 0.67 m/s Peak Velocity (LVOT): 0.67 m/s Mean Velocity (LVOT): 0.46 m/s LVOT Diameter 2.48 cm Left Atrium LA Volume Index (2D A2C): 36.24 ml/m2 Left Atrium Systolic Dimension: 3.96 cm Mitral Valve MV E to A Ratio: 0.42 Mitral Valve A-Wave Peak Velocity: 0.93 m/s Mitral Valve E-Wave Peak Velocity: 0.39 m/s Right Ventricle Aorta AO Root Diam: 3.89 cm Aortic Valve AoV Area (Peak Johnathon): 3.43 cm2, 3.43 cm2 AoV Area (VTI): 3.41 cm2, 3.41 cm2 Peak Velocity(Antegrade Flow): 0.94 m/s Peak Gradient(Antegrade Flow): 3.56 mm[Hg] Mean Velocity(Antegrade Flow): 0.67 m/s Mean Gradient(Antegrade Flow): 2.00 mm[Hg] Velocity Time Integral: 20.29 cm Tricuspid Valve Peak Velocity (Regurgitant Flow): 2.69 m/s Pulmonic Valve Peak Velocity: 0.79 m/s Peak Gradient: 2.49 mm[Hg] Right Atrium Right Atrium Systolic Pressure: 37.73 ml, 37.73 ml Dictated by: Eduard Hopson M.D. on 01/24/2025 at 18:25 Approved by: Eduard Hopson M.D. on 01/24/2025 at 18:28 Dictated By: EDUARD HOPSON Signed By: 01/24/251828 DD/ 27 TD/TT: Steward/Stewardess Banquet: [place] [address] Cardiology Report Signed Patient: ANGELLA FRANCIS MR#: [id number] : 1945 Acct:[id number] Age/Sex: 79 / M ADM Date: 01/24/25 Loc: CARD Attending Dr: EDUARD HOPSON Ordering Physician: EDUARD HOPSON Date of Service: 01/24/25 Procedure(s): CA ech o doppler complete Accession Number(s): [id number] cc: Charlie Almeida M.D. ; EDUARD HOPSON Patient Name: DYLON FRANCIS MR#: [id number] : 1945 Exam Date: 01/24/2025 Ordering Doctor: DR EDUARD HOPSON M.D. ECHOCARDIOGRAM REPORT PROCEDURE: CA ECHO DOPPLER COMPLETE INDICATIONS: Chronic systolic heart failure, pacemaker, diabetes, hypertension COMPARISON: None. DESCRIPTION: COMPLET E ECHOCARDIOGRAM Real-time transthoracic echocardiography wit h 2D, M-mode, spectral and color flow Doppler performed. QUALITY: LEFT VENTRICLE: Norm al chamber size. Moderate concentric left ventricular hypertrophy. Systoli c function is at the lower limits of normal. LV EF: Lower limits of normal left ventricular ejection fraction, (50%). DIASTOLIC: Grade I diastolic dysfunction. ATRIAL SEPTUM: LEFT ATRIUM: Moderat e dilatation. RIGHT ATRIUM: Normal chamber size. RIGHT VENTRICLE: Nor mal chamber size. Normal systolic function. Pacer wire present. TRICUSPID VALVE: Nor mal mobility and thickness. No stenosis with trivial regurgitation. Doppl er studies reveal mildly (35-45) elevated right sided pressures. RVSP 44 mmHg MITRAL VALVE: Normal mobility and thickness. No evidence of mitral valve stenosis. There is n o mitral annular calcification. AORTIC VALVE: Normal trileaflet appearance. No visible sclerosis. Normal leaflet mobility. No evidence of aortic valve stenosis. Trivial aortic regurgitation. AORTIC ROOT: Normal diameter and appearance, measuring 3.9 cm. PULMONIC VALVE: Not well visualized. PERICARDIUM: No evid ence of pericardial effusion. IVC: IVC is dilated (2.3 cm), does not collapse. PLEURA: CONCLUSION: 1. Moderate concentr ic ventricular hypertrophy with low normal systolic function. LVEF is estimated at 50%. 2. Normal right ventricular size and systolic function. 3. No significant valvular dysfunction. 4. Moderate left atr ial dilatation. 5. Mildly elevated right-sided pressures. RVSP is 44 mmHg. Adult Echocardiograp hy Procedure Report Left Ventricle LVEDD (3.7 - 5.6 cm) : 4.37 cm LVESD (2.2 - 4.0 cm) : 3.68 cm LVIVS thickness (0.6 - 1.2 cm): 1.31 cm LVPW thickness (0.5 - 1.0 cm): 1.40 cm e': 0.13 m/s E - e': 3.01 LVOT Max Gradient: 1 .80 mm[Hg] LVOT Area (cm2): 0.6 7 m/s Peak Velocity (LVOT) : 0.67 m/s Mean Velocity (LVOT) : 0.46 m/s LVOT Diameter 2.48 cm Left Atrium LA Volume Index (2D A2C): 36.24 ml/m2 Left Atrium Systolic Dimension: 3.96 cm Mitral Valve MV E to A Ratio: 0.42 Mitral Valve A-Wave Peak Velocity: 0.93 m/s Mitral Valve E-Wave Peak Velocity: 0.39 m/s Right Ventricle Aorta AO Root Diam: 3.89 cm Aortic Valve AoV Area (Peak Johnathon): 3.43 cm2, 3.43 cm2 AoV Area (VTI): 3.41 cm2, 3.41 cm2 Peak Velocity(Antegr silviano Flow): 0.94 m/s Peak Gradient(Antegr silviano Flow): 3.56 mm[Hg] Mean Velocity(Antegr silviano Flow): 0.67 m/s Mean Gradient(Antegr silviano Flow): 2.00 mm[Hg] Velocity Time Integr al: 20.29 cm Tricuspid Valve Peak Velocity (Regurgitant Flow): 2.69 m/s Pulmonic Valve Peak Velocity: 0.79 m/s Peak Gradient: 2.49 mm[Hg] Right Atrium Right Atrium Systoli c Pressure: 37.73 ml, 37.73 ml Dictated by: Eduard Hopson M.D. on 01/24/2025 at 18:25 Approved by: Eduard Hopson M.D. on 01/24/2025 at 18:28 Dictated By: EDUARD HOPSON Signed By: 01/24/251828 DD/ 27 TD/TT: Steward/Stewardess Banquet: NASEEM anna perf SPECT rest str Reviewed date:04/04/2024 08:47:09 PM Interpretation: Performing Lab: Notes/Report: Source Facility: [place] [address] Nuclear Medicine Report Signed Patient: DYLON FRANCIS MR#: [id number] : 1945 Acct:[id number] Age/Sex: 78 / M ADM Date: 04/01/24 Loc: NASEEM Attending Dr: EDUARD HOPSON Ordering Physician: EDUARD HOPSON Date of Service: 04/01/24 Procedure(s): NM anna perf SPECT rest str Accession Number(s): [id number] cc: Charlie Almeida M.D.; EDUARD HOPSON Patient Name: DYLON FRANCIS MR#: [id number] : 1945 Exam Date: 04/01/2024 Ordering Doctor: DR EDUARD HOPSON M.D. RADIOLOGY REPORT PROCEDURE: NM ANNA PERF SPECT REST STR COMPARISON: None. INDICATIONS: ACUTE ON CHRONIC SYSTOLIC CONGESTIVE HEART FAILURE TECHNIQUE: Exam Description: Stress/Rest one day protocol gated SPECT Rest Imagin.1 mCi Tc-99m Cardiolite IV on 04/01/2024 Stress Imaging 30.7 mCi Tc-99m Cardiolite IV on 04/01/2024 Exercise Protocol: 0.4 mg Lexiscan given IV Heart Rate (bpm): Rest: 75 Max: 78 PMHR: 55 Blood Pressure: Rest: 148/88 Max: 148/88 Symptoms: Rest and peak stress ECG findings were pending and the exercise portion of the study was pending per attending physician [facility] . For more details please see separate cardiac stress test report. FINDINGS: QUALITY OF STUDY: PERFUSION DEFECT: LOCATION: Basal inferior. Mid-inferior. [place]. SIZE: Small (1-2 segments). SEVERITY: Moderate. TYPE: Persistent. WALL MOTION: Moderate hypokinesis: Global LV SIZE: Enlarged; EDV 145 mL. TID / TCD: None; 1.1 LVEF: Abnormal. Calculated EF 46%. SUMMARY: Myocardial perfusion imaging study has ABNORMAL findings. CONCLUSION: 1. 1. No acute or reversible ischemia. 2. Fixed mild ischemia involving the inferior wall and apex. 3. Global hypokinesis of the left ventricle. 4. Mild ventriculomegaly and low left ventricle ejection fraction. Dictated by: Wei Schwartz M.D. on 04/04/2024 at 15:51 Approved by: Wei Schwartz M.D. on 04/04/2024 at 16:03 Dictated By: Wei Schwartz M.D. Signed By: 04/04/24 1604 DD/ 02 TD/TT: Steward/Stewardess Banquet: [place] [address] Nuclear Medicine Report Signed Patient: ANGELLA FRANCIS MR#: [id number] : 1945 Acct:[id number] Age/Sex: 78 / M ADM Date: 04/01/24 Loc: [place] Attending Dr: EDUARD HOPSON Ordering Physician: EDUARD HOPSON Date of Service: 04/01/24 Procedure(s): NM anna perf SPECT rest str Accession Number(s): [id number] cc: Charlie Almeida M.D. ; EDUARD HOPSON Patient Name: DYLON FRANCIS MR#: [id number] : 1945 Exam Date: 04/01/2024 Ordering Doctor: DR EDUARD HOPSON M.D. RADIOLOGY REPORT PROCEDURE: NM ANNA PE RF SPECT REST STR COMPARISON: None. INDICATIONS: ACUTE O N CHRONIC SYSTOLIC CONGESTIVE HEART FAILURE TECHNIQUE: Exam Description: Stress/Rest one day protocol gated SPECT Rest Imagin.1 m Ci Tc-99m Cardiolite IV on 04/01/2024 Stress Imaging 30.7 mCi Tc-99m Cardiolite IV on 04/01/2024 Exercise Protocol: 0 .4 mg Lexiscan given IV Heart Rate (bpm): Re st: 75 Max: 78 PMHR: 55 Blood Pressure: Rest : 148/88 Max: 148/88 Symptoms: Rest and peak stress ECG findings were pending and the exercise portion of the study was pending pe r attending physician Dr. GALEANA . For more details please see separate cardiac stress test report. FINDINGS: QUALITY OF STUDY: PERFUSION DEFECT: LOCATION: Basal inferior. Mid-inferior. [place]. SIZE: Small (1-2 segments). SEVERITY: Moderate. TYPE: Persistent. WALL MOTION: Moderat e hypokinesis: Global LV SIZE: Enlarged; E DV 145 mL. TID / TCD: None; 1.1 LVEF: Abnormal. Calculated EF 46%. SUMMARY: Myocardial perfusion imaging study has ABNORMAL findings. CONCLUSION: 1. 1. No acute or reversible ischemia. 2. Fixed mild ischem ia involving the inferior wall and apex. 3. Global hypokinesi s of the left ventricle. 4. Mild ventriculome [place] and low left ventricle ejection fraction. Dictated by: Wei Schwartz M.D. on 04/04/2024 at 15:51 Approved by: Wei Schwartz M.D. on 04/04/2024 at 16:03 Dictated By: Wei Schwartz M.D. Signed By: 04/04/24 1604 DD/ 1603 TD/TT: Steward/Stewardess Banquet: LIVER PROFILE Reviewed date:04/10/2024 04:54:32 PM Interpretation: Performing Lab: Notes/Report: [facility] , Bilirubin Total 0.6 0.2-1.0 mg/dL Bilirubin Direct 0.2 0.0-0.2 mg/dL Aspartate Amino Transferase 16 15-37 U/L Alanine Aminotransferase 21 16-63 U/L Alkaline Phosphatase 97 46-116 U/L Total Protein 6.6 6.4-8.2 g/dL Albumin Level 3.6 3.4-5.0 g/dL Globulin 3.0 Albumin Globulin Ratio 1.2 Performing Lab: see note ML - [facility] LB LIPID PROFILE Reviewed date:04/10/2024 04:54:32 PM Interpretation: Performing Lab: Notes/Report: [facility] , Triglycerides 77 <=150 mg/dL Cholesterol 137 <=200 mg/dL HDL Cholesterol 60 40-60 mg/dL <40 mg/dl - HIGH CARDIOVASCULAR RISK > or =60 mg/dl - LOW CARDIOVASCULAR RISK LDL Cholesterol Calculated 61.6 >190 mg/dl VERY HIGH 160-189 mg/dl HIGH 100-129 mg/dl NEAR OR ABOVE OPTIMAL 130-159 mg/dl BORDERLINE HIGH <100 mg/dl OPTIMAL VLDL CHOLESTEROL 15.4 Chol HDL Ratio 2.3 >11.0 HIGH RISK 7.1 - 11.0 MODERATE RISK 4.4 - 7.1 AVERAGE RISK 3.3 - 4.4 LOW RISK Performing Lab: see note ML - [facility] Reason For Referral No Information Medications Medication SIG (Take, Route, Frequency, Duration) Notes Start Date End Date Status Warfarin Sodium 5 MG 1 tablet Orally once daily for 90 days Active Ferrous Sulfate 325 (65 Fe) MG 1 tablet Orally BID Active Warfarin Sodium 7.5 MG 1 tablet Orally Once a day for 90 days Active Amitriptyline HCl 25 MG TAKE 1 TABLET BY MOUTH EVERYDAY AT BEDTIME for 90 Active Isosorbide Mononitrate ER 30 MG 1 tablet in the morning Orally Once a day Active Temazepam 30 MG 1 capsule at bedtime as needed Orally dx G47.00 Once a day for 30 days 01/23/2025 Active Amoxicillin-Pot Clavulanate 875-125 MG 1 tablet Orally every 12 hrs for 10 days 06/09/2024 Not-Taking Leqvio 284 MG/1.5ML as directed Subcutaneous every 6 months 06/09/2024 Active Aspirin Adult Low Dose 81 MG 1 tablet Orally Once a day 03/02/2024 Active Melatonin 10 MG 2 Orally Q HS Active Azithromycin 250 MG 2 tabs today then 1 tab Orally daily for 5 days 08/10/2024 Active Mupirocin 2 % 1 application Externally Twice a day for 5 days 06/09/2024 Active Carvedilol 6.25 MG 3 tablet with food Orally Twice a day Active Omeprazole 40 MG 1 capsule 30 minutes before morning meal Orally Once a day for 90 days Active Colace 100 MG 1 capsule as needed Orally Once a day Active Paxlovid (300/100) 20 x 150 MG & 10 x 100MG 3 tablets Orally Twice a day for 5 days Normal creatinine 08/10/2024 Active dexAMETHasone 6 MG 1 tablet Orally daily for 5 days 08/10/2024 Active Spironolactone 25 MG 1/2 tablet Orally once a day 06/09/2024 Active Entresto 24-26 MG 1 tablet Orally Twice a day 06/09/2024 Active Ezetimibe 10 MG 1 tablet on hold Orally Once a day Active Vitamin D3 50 MCG (1999 UT) 1 capsule Orally Once a day Active Farxiga 10 MG 1 tablet Orally Once a day 06/09/2024 Active Immunizations Vaccine Route Administration Date Status Comme nts Comirnaty Pfizer Syringe Pre-Filled 30 mcg/0.3 mL Unknown 06/30/2023 Administered Comirnaty Pfizer Syringe Pre-Filled 30 mcg/0.3 mL Unknown 05/31/2024 Administered Flu, Fluad (0237-6042) ([id number]) 65 yrs+, single-dose syringe IM Intramuscular 06/15/2023 Administered SARS-COV-2 (COVID 19 Pfizer 30mcg/0.3mL) Unknown 11/12/2020 Administered SARS-COV-2 (COVID 19 Pfizer 30mcg/0.3mL) Unknown 12/04/2020 Administered SARS-COV-2 (COVID 19 Pfizer 30mcg/0.3mL) Unknown 09/11/2021 Administered SARS-COV-2 (COVID 19) bivalent 30 mcg/0.3 ml dose Unknown 07/23/2022 Administered Tdap (Boostrix) Unknown 02/20/2018 Administered Social History Tobacco Use: Social History Observation Description Date Details (start date - stop date) Former Smoker 09/07/1949 - 09/07/1973 Tobacco Use/Smoking Question Answer Notes Patient is a former smoker When did you start smoking? 09/07/1949 When did you stop smoking? 09/07/1973 Alcohol Screen (Audit-C) Question Answer Notes Did you have a drink containing alcohol in the p ast year? 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) Active confirmed Problem Information temporarily unavailable History of falling (Z91.81) Active confirmed Problem Information temporarily unavailable Presence of other vascular implants and grafts (Z95.828) Active confirmed Problem Information temporarily unavailable Fatigue (R53.83) Active confirmed Problem Information temporarily unavailable Hypertension (I10) Active confirmed Problem Information temporarily unavailable Pulmonary embolism (I26.99) Active confirmed Problem Information temporarily unavailable Bradycardia (R00.1) Active confirmed Problem Information temporarily unavailable Depression (F32.9) Active confirmed Problem Information temporarily unavailable Obstructive sleep apnea (G47.33) Active confirmed Problem Information temporarily unavailable Insomnia (G47.00) Active confirmed Problem Information temporarily unavailable Acute bronchitis (J20.9) Active confirmed Problem Information temporarily unavailable Well adult (Z00.00) Active confirmed Problem Information temporarily unavailable Diverticulitis (K57.92) Active confirmed Problem Information temporarily unavailable Over weight (E66.3) Active confirmed Problem Information temporarily unavailable 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) Active confirmed Problem Information temporarily unavailable Diabetes mellitus with neuropathy (E11.40) Active confirmed Problem Information temporarily unavailable Premature ventricular contraction (I49.3) Active confirmed Problem Information temporarily unavailable Stable angina (I20.9) Active confirmed Problem Information temporarily unavailable History of TN (myocardial infarction) (I25.2) Active confirmed Problem Information temporarily unavailable S/P coronary artery stent placement (Z95.5) Active confirmed Problem Information temporarily unavailable Other peripheral vascular disease (I73.89) Active confirmed Problem Information temporarily unavailable Sjoegren syndrome (M35.00) Active confirmed Problem Information temporarily unavailable Coronary heart disease (I25.10) Active confirmed Problem Information temporarily unavailable Presence of permanent cardiac pacemaker (Z95.0) Active confirmed Problem Information temporarily unavailable Diastolic HF (heart failure) (I50.30) Active confirmed Problem Information temporarily unavailable 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) Active confirmed Problem Information temporarily unavailable Presence of ileostomy (Z93.2) Active confirmed Problem Information temporarily unavailable Acute deep vein thrombosis (DVT) (I82.409) Active confirmed Problem Information temporarily unavailable Cat scratch (W55.03XA) Active confirmed Problem Information temporarily unavailable Other injury of unspecified body region, initial encounter (T14.8XXA) Active confirmed Problem Information temporarily unavailable 2nd degree AV block (I44.1) Active confirmed Problem Information temporarily unavailable Diabetes mellitus (E11.9) Active confirmed Problem Information temporarily unavailable COVID-19 virus infection (U07.1) Active confirmed Problem Information temporarily unavailable Chronic kidney disease, stage 3 unspecified (N18.30) Active confirmed Problem Information temporarily unavailable Low back pain, unspecified (M54.50) Active confirmed Vital Signs Heart Rate 78 /min 09/08/2024 Temperature 97.6 degrees Fahrenheit 09/08/2024 Respiratory Rate 16 /min 05/19/2024 Blood pressure diastolic 80 mm Hg 06/09/2024 Oximetry 98 % 09/08/2024 Height 70 in 09/08/2024 Blood pressure systolic 122 mm Hg 06/09/2024 Weight 220.6 lbs 06/09/2024 BMI 31.65 kg/m2 06/09/2024 Encounters Encounter Location Date Provider Diagnosis [facility] [address] [place] [address] 06/09/2024 Omid Hoy Hypertension I10 and Cat scratch W55.03XA [facility] ([facility]) [address] [place] [address] 05/19/2024 Yasmin Lubin Diabetes mellitus with neuropathy E11.40 ; Pain in left toe(s) M79.675 and Pain in right toe(s) M79.674 [facility] ([facility]) [address] [place] [address] 09/08/2024 Yasmin Lubin Diabetes mellitus with neuropathy E11.40 ; Pain in right toe(s) M79.674 and Pain in left toe(s) M79.675 [facility] ([place], [place]) [address] [facility] [place] [address] 02/23/2024 CHARLIE HOY Other insomnia G47.09 [facility] ([place], [place] [address] [facility] [address] 03/02/2024 CHARLIE HOY [facility] [address] [place] [address] 03/16/2024 Omid Hoy [facility] [address] [place] [address] 03/23/2024 Omid Hoy Other insomnia G47.09 [facility] ([place], [place] [address] [facility] [place] [address] 04/25/2024 Omid Hoy Other insomnia G47.09 [facility] ([place], [place] [address] [facility] [address] 05/24/[address] [facility] ([place] [place] [address] [facility] [address] 05/24/2024 Omid Hoy Other insomnia G47.09 [facility] [address] [facility] [place] [address] 05/26/[address] [facility] ([place], [place] [address] [facility] [place] [address] 06/22/2024 Omid Hoy Other insomnia G47.09 [facility] ([place] [place] [address] [facility] [place] [address] 07/22/2024 Omid Hoy Other insomnia G47.09 [facility] [address] [facility] [place] [address] 08/02/2024 Omid Hoy [facility] [address] [place] [address] 08/10/[address] [facility] ([place], [place] [address] [facility] [place] [address] 08/23/2024 Omid Hoy Other insomnia G47.09 [facility] [address] [place] [address] 09/19/2024 Omid Hoy Other insomnia G47.09 [facility] [address] [place] [address] 10/17/2024 Omid Hoy Other insomnia G47.09 [facility] ([place], [place] [address] [facility] [place] [address] 11/21/2024 Omid Hoy Other insomnia G47.09 [facility] [address] [place] [address] 12/21/2024 Omid Hoy Other insomnia G47.09 [facility] ([place], [place] [address] [facility] [place] [address] 01/23/2025 Omid Hoy Other insomnia G47.09 Assessments Encounter Date Diagnosis (ICD Code) Assessment Notes Treatment Notes Treatment Clinical Notes Section Notes 06/09/2024 Hypertension (ICD-10 - I10) 06/09/2024 Cat scratch (ICD-10 - W55.03XA) 09/08/2024 Diabetes mellitus with neuropathy (ICD-10 - E11.40) The patient is a pleasant 78-year-old gentleman with history of diet-controlled type 2 diabetes with neuropathy who presents for diabetic foot check and routine nail care. Skin is in good condition and I have no concerns at this time in regards to wounds. Toenails 1 through 10 were sharply debrided without incident. He noted pain relief postprocedure. He is to continue to monitor the condition of his feet at least daily. Wear supportive shoe gear. Follow-up in 1 year or as needed for nail care. 09/08/2024 Pain in right toe(s) (ICD-10 - M79.674) 02/23/2024 Other insomnia (ICD-10 - G47.09) 03/23/2024 Other insomnia (ICD-10 - G47.09) 04/25/2024 Other insomnia (ICD-10 - G47.09) 05/24/2024 Other insomnia (ICD-10 - G47.09) 06/22/2024 Other insomnia (ICD-10 - G47.09) 07/22/2024 Other insomnia (ICD-10 - G47.09) 08/23/2024 Other insomnia (ICD-10 - G47.09) 09/19/2024 Other insomnia (ICD-10 - G47.09) 10/17/2024 Other insomnia (ICD-10 - G47.09) 11/21/2024 Other insomnia (ICD-10 - G47.09) 12/21/2024 Other insomnia (ICD-10 - G47.09) 01/23/2025 Other insomnia (ICD-10 - G47.09) 05/19/2024 Diabetes mellitus with neuropathy (ICD-10 - E11.40) The patient is a pleasant 78-year-old gentleman with history of type 2 diabetes and neuropathy who presents for evaluation of painful elongated toenails of both feet. After verbal consent, toenails 1 through 10 were sharply debrided with nail nippers without incident. He noted pain relief postprocedure. No ulcerative or preulcerative lesions are noted on examination today. He may follow-up as needed. 05/19/2024 Pain in left toe(s) (ICD-10 - M79.675) 05/19/2024 Pain in right toe(s) (ICD-10 - M79.674) 09/08/2024 Pain in left toe(s) (ICD-10 - M79.675) Plan Of Treatment Pending Test Test Name Order Date CMP (COMPLETE METABOLIC PANEL) 3 HEMOGLOBIN A1C (GLYCO) 03/11/2023 LIPID PANEL (CHOL/TRIG/HDL/LDL) 03/11/20 23 CBC WITH DIFF 03/11/2023 PSA, PROSTATE-SPECIFIC ANTIGEN 3 THYROID PANEL (T4/TSH/FREE T3) 3 Insurance Providers Payer Name Payer Address Payer Phone Subscriber Number Group Number Insured Name Patient Relationship to Insured Coverage Start Date Coverage End Date MEDICARE [employer] [address] [address] [place], [place] [id number] Dylon Francis Self - patient is the insured [facility] [address] [address] [place], [place] [id number] Guru Dylon Self - patient is the insured Medical (General) History Medical History History ICD Code Over weight E66.3 COVID-19 virus infection U07.1 Other injury of unspecified body region, initial encounter T14.8XXA Fatigue R53.83 Depression F32.9 Abdominal varicosities I86.8 Acute bronchitis J20.9 Adhesive capsulitis of left shoulder M75 .02 Presence of permanent cardiac pacemaker Z95.0 2nd degree AV block I44.1 Premature ventricular contraction I49.3 Diabetes mellitus with neuropathy E11.40 Well adult Z00.00 History of falling Z91.81 Stable angina I20.9 Acute deep vein thrombosis (DVT) I82.409 Coronary heart disease I25.10 Diastolic HF (heart failure) I50.30 Bradycardia R00.1 Chronic kidney disease, stage 3 unspecif ied N18.30 Other peripheral vascular disease I73.89 Presence of ileostomy Z93.2 Presence of other vascular implants and grafts Z95.828 History of TN (myocardial infarction) I2 5.2 Obstructive sleep apnea G47.33 S/P coronary artery stent placement Z95. 5 Diabetes mellitus E11.9 Hypertension I10 Insomnia G47.00 Sjoegren syndrome M35.00 Diverticulitis K57.92 Low back pain, unspecified M54.50 Pulmonary embolism I26.99 Arterial occlusive disease I74.9 Surgical History Surgery Date(Month/Year) TURP Colon resection Cataract Extraction Back Surgery Abdominal Surgery Matt Filter Placement Tonsillectomy 05/2017 Pacemaker Placement Heart Cath w/ stent placement 06/2017
--- OUTSIDE RECORDS SUMMARY | 2025-01-26 14:30 | XMS_ITS | Clinical Summary ---
Author Organization [employer] [facility] Address [id number] [address] [place] [address] Care Team Providers Care Sales Marketing Director Name Role Phone Unavailable Primary Care Provider Unavailabl e Social History Tobacco Use Types Packs/Day Years Used Date Smoking Tobacco: Never Assessed Childcare Answer Date Recorded Childcare Unknown 02/16/2019 Employment Answer Date Recorded Employment Unknown 02/16/2019 Sex and Gender Information Value Date Recorded Sex Assigned at Not on file Legal Sex Male 12:10 PM EDT Gender Identity Not on file Sexual Orientation Not on file Plan of Treatment Not on file Medical Devices Not on file
--- NOTE | 2025-01-26 14:46 | PM.WCHP ---
Wound Care H&P: HPI History of Present Illness Narrative: Mr. Garvey is a pleasant 79-year-old gentleman with history of type 2 diabetes, coronary artery disease, and peripheral neuropathy who presents for routine nail care. He does not know what his last hemoglobin A1c was. He states his blood sugars have been well-controlled. He does complain of numbness and paresthesias in his feet which he attributes to neuropathy. Exam Narrative: Exam Narrative: Derm: Toenails 1 through 10 are thickened, elongated, and painful.? No evidence of paronychia.? Skin is diffusely dry, thin, and atrophic.? Hemosiderin staining present on the lower legs bilaterally. Vascular: DP and PT pulses are nonpalpable bilaterally.? Capillary refill is less than 3 seconds to all toes. Digital hair is absent bilaterally. Superficial varicosities are noted. Edema noted of both ankles. Neuro: Vibratory sensation is present bilaterally.? Achilles deep tendon reflex is absent bilaterally.? Protective sensation was tested with a monofilament and is present in 0/5 areas tested on the right and 0/5 areas tested on the left.? Musculoskeletal: No gross deformity.? Strength 5/5 in all planes bilaterally Assessment and Plan Assessment and Plan (1) Tinea unguium: (2) Nail dystrophy: (3) Diminished pulses in lower extremity: (4) Type 2 diabetes mellitus with diabetic neuropathy, unspecified: (5) Type 2 diabetes mellitus with other circulatory complications: Plan Routine nail care performed. Follow-up in 3 months or as needed. Acute Procedures Podiatry Nail Debridement Class B Findings Absent posterior tibial pulse: bilateral Advanced trophic changes as evidenced by any three of the following: decreased hair growth, nail changes (thickening), pigmentary changes (discoloring) and skin texture (thin or shiny) Absent dorsalis pedis pulse: bilateral Class C Findings Claudication: No Temperature changes: No Edema: Yes Nail debridement paresthesia (abnormal spontaneous sensations in the feet): Yes Burning: No Qualifies If: Qualifiers If:: A patient qualifies for nail debridement if they have: 1 class A finding (Q7) 2 class B findings (Q8) OR 1 class B & 2 class C findings in addition to a primary condition (Q9) Nail Procedure Nail Procedure Time out: Yes Nail procedure: other (Toenail debridement toes 1 through 10) Number of affected nails: 10 Location (toes): left and right Procedure successful: Yes Patient tolerated procedure: well and no complications Additional comments: Toenails 1 through 10 were sharply debrided with nail nippers without incident. The patient noted pain relief postprocedure.
== END 2025-01-26 14:28 | disposition home or self-care (01) ==
LOC: WC 14:27
PROVIDERS: PCP Family Medicine; Visit Provider Physician Assistant
DX: B35.1 Tinea unguium (principal); L60.3 Nail dystrophy; I70.213 Atherosclerosis of native arteries of extremities with intermittent claudication, bilateral legs; E11.8 Type 2 diabetes mellitus with unspecified complications; E11.59 Type 2 diabetes mellitus with other circulatory complications
CPT/HCPCS: 11721

== ENCOUNTER 2025-02-05 07:43 | Outpatient (RCR) | payer MEDICARE, OTHER, SELFPAY | END 2025-03-02 14:41 | disposition home or self-care (01) | LOC: MM 07:43 | PROVIDERS: PCP Family Medicine; Visit Provider Family Medicine | DX: Z51.81 Encounter for therapeutic drug level monitoring (principal); Z79.01 Long term (current) use of anticoagulants; I82.409 Acute embolism and thrombosis of unspecified deep veins of unspecified lower extremity | CPT/HCPCS: 85610; G0463 ==

== ENCOUNTER 2025-02-25 07:03 | Outpatient (OUT) | payer MEDICARE, OTHER, SELFPAY ==
--- OUTSIDE RECORDS SUMMARY | 2025-02-25 07:07 | XMS_ITS | CCD ---
Author Organization [facility] Care Team Providers Care Psychiatry Resident Name Role Phone DORCAS CHIN AM Unavailable [...] CHARLIE Unavailable Unavailable HOY, CHARLIE Unavailable Unavailable Omid Starklas Primary Care Physician FAWWAD, GONSALEZ H Admitting Unavailable HOY ., [...] Care Unavailable FAWWAD, GONSALEZ H Attending Unavailable BING, REGGIE Attending Unavailable BING, REGGIE Admitting Unavailable BING, REGGIE Consulting Unavailable HOY ., DR GUERRA Primary Care Unavailable BING, REGGIE Attending Unavailable BING, REGGIE Admitting Unavailable BING, REGGIE Consulting Unavailable HOY ., DR GUERRA Primary Care Unavailable HOY ., DR GUERRA Primary Care Unavailable BEBA WAGNER ., DR JADON Norris Consulting Unavaila ble YODER JR ., DR JADON Norris Attending Unavaila ble YODER JR ., DR JADON Norris Admitting Unavaila ble BING, REGGIE Admitting Unavailable BING, REGGIE Consulting Unavailable HOY ., DR GUERRA Primary Care Unavailable BING, REGGIE Attending Unavailable FAWWAD, GONSALEZ H Attending Unavailable FAWWAD, GONSALEZ H Admitting Unavailable HOY ., DR GUERRA Primary Care Unavailable FAWWAD, GONSALEZ H Attending Unavailable HOY ., DR GUERRA Primary Care Unavailable FAWWAD, GONSALEZ H Admitting Unavailable FAWWAD, GONSALEZ H Admitting Unavailable HOY ., DR GUERRA Primary Care Unavailable FAWWAD, GONSALEZ H Attending Unavailable DOTTYUKAEDUARD ACOSTA Attending Unavailable MOUKARBEL, EDUARD Attending Unavailable MOUKARBELEDUARD Attending Unavailable PINOERNIE Woodward Referring Unavailable PINOERNIE Referring Unavailable PINOERNIE Referring Unavailable PINO, ERNIE Referring Unavailable MOUKARBEL, EDUARD Attending Unavailable MOUKAEDUARD ACOSTA Attending Unavailable Allergies Allergy Classification Reported Allergen(s) Allergy Type Date of Onset Reaction(s) Facility (3 sources) black walnut pollen extract; Translations: [[id number] REDUCTASE INHIBITORS] Drug Allergy 2 [facility] (2 sources) celecoxib Drug Allergy 2 [facility] (2 sources) HMG-CoA reductase inhibitor; Translations: [statins] Drug allergy Unknown (qualifier value) [facility] (1 source) celecoxib; Translations: [CELECOXIB] Drug Allergy 4 [facility] Medications Current Medications Medication Drug [...] Start: 06-07-2019 take 1 tablet by zachery th once daily Iron 100 Plus tab(s), Oral, [...] 3 (moderate)] Onset: 05-14-2017 Chronic Conduction disorders (10 sources) Presence of cardiac pacemaker; Translations: [Atrioventricular block, second degree] Onset: 05-14-2017 Chronic Congestive heart failure; nonhypertensive (9 sources) Unspecified diastolic (congestive) heart failure; Translations: [Chronic diastolic (congestive) heart failure] Onset: 05-14-2017 Chronic Coronary atherosclerosis and other heart disease (11 sources) Atherosclerotic heart disease of rincon coronary artery without angina pectoris; 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] Onset: 05-14-2017 06-03-2019 Chronic Diabetes mellitus with complications (1 source) Type [...] Onset: 06-10-2017 Chronic Other aftercare (3 sources) 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; Translations: [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) use of aspirin] Onset: 05-14-2017 Episodic [...] of inferior vena cava] Onset: 10-22-2022 Chronic Residual codes; unclassified (1 source) Sleep apnea [...] (PEDIATRIC)] Onset: 05-14-2017 Chronic Unclassified (1 source) 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; Translations: [CUSTODIAL (CURRENT) USE OF ORAL HYPOGLYCEMIC DRUGS] Onset: 05-14-2017 Unclassified (2 sources) Unknown / UNK(Unknown) Onset: 05-14-2017 Unclassified (1 source) Stenosis of coronary artery stent, initial encounter; Translations: [STENOSIS OF CORONARY ARTERY STENT, INITIAL ENCOUNTER] Onset: 06-10-2017 Unclassified (1 source) Drug therapy finding 06-03-2019 Past or Other Problems Problem Classification Problem Date Documented Da te Episodic/Chronic Complication of device; implant or graft (1 source) Displacement of cardiac electrode, initial encounter; Translations: [DISPLACEMENT OF CARDIAC ELECTRODE, INITIAL ENCOUNTER] Onset: 05-14-2017 Episodic Coronary atherosclerosis and other heart disease (3 sources) Presence of coronary angioplasty implant and graft; Translations: [PRESENCE OF CORONARY ANGIOPLASTY IMPLANT AND GRAFT] Onset: 05-14-2017 Episodic Deficiency and other anemia (1 source) Iron deficiency anemia, unspecified; Translations: [IRON DEFICIENCY ANEMIA, UNSPECIFIED] Onset: 05-14-2017 Episodic Genitourinary symptoms and ill-defined conditions (10 sources) Nocturia; Translations: [Nocturia] Onset: 08-26-2022 Episodic Malaise and fatigue (1 source) Other fatigue; Translations: [OTHER FATIGUE] Onset: 06-10-2017 Episodic Other lower respiratory disease (1 source) Shortness of breath; Translations: [SHORTNESS OF BREATH] Onset: 06-10-2017 Episodic Phlebitis; thrombophlebitis and thromboembolism (8 sources) Personal history of other venous thrombosis and embolism; Translations: [Acute embolism and thrombosis of unspecified deep veins of unspecified lower extremity] Onset: 05-14-2017 Episodic Pulmonary heart disease (4 sources) Personal history of pulmonary embolism; Translations: [PERSONAL HISTORY OF PULMONARY EMBOLISM] Onset: 06-10-2017 Episodic Unclassified (4 sources) Abnormal result of other cardiovascular function study; Translations: [ABNORMAL RESULT OF OTHER CARDIOVASCULAR FUNCTION STUDY] Onset: 06-10-2017 Episodic Results Test Name Value Interpretation Reference Range Facility Office Visiton 02-06-2025 Follow-up visit [id number] Panfilo Francis 1945 M Date Provider Department Center 02/06/2025 EDUARD PRUITT Family History Adopted: Yes Family Status - Relation Status Age at Mother Father Level of Service:93437 [place] OFFICE/OUTPATIENT ESTABLISHED MOD MDM 30 MIN Normal [facility] Orders Onlyon 01-20-2025 Orders Only [id number] Panfilo Francis 1945 M Date Provider Department Center 01/20/2025 Yaniv-ERNIE PRINGLE [facility]ARD [facility] Family History Adopted: Yes Normal [facility] Orders Onlyon 09-08-2024 Orders Only [id number] Panfilo Francis 1945 M Date Provider Department Center 09/08/2024 BRAN VALIENTE CALLIE [facility] Family History Adopted: Yes Normal [facility] Office Visiton 08-22-2024 Follow-up visit [id number] Panfilo Francis 1945 M Date Provider Department Center 08/22/2024 EDUARD PRUITT CALLIE [facility] Family History Adopted: Yes Level of Service:36090 [place] OFFICE/OUTPATIENT ESTABLISHED MOD MDM 30 MIN Normal [facility] Office Visiton 06-03-2024 Follow-up visit [id number] Panfilo Francis 1945 M Date Provider Department Center 06/03/2024 EDUARD PRUITT CALLIE [facility] Family History Adopted: Yes Level of Service:22168 [place] OFFICE/OUTPATIENT ESTABLISHED MOD MDM 30 MIN Normal [facility] Office Visiton 04-13-2024 Follow-up visit [id number] Panfilo Francis 1945 M Date Provider Department Center 04/13/2024 EDUARD PRUITT CALLIE [facility] Family History Adopted: Yes Level of Service:05765 [place] OFFICE/OUTPATIENT ESTABLISHED MOD MDM 30 MIN Normal [facility] 36on 04-12-2024 36 Regarding stress zachary t result from 04/01/2024: MD Bran Velarde MA Let's see him in follow up to optimize medical therapy, he will then need a follow up echo to check response and decide on [employer] upgrade. Scheduled patient for follow up with Dr. Hopson on 04/13/2024. Normal [facility] 36on 03-24-2024 36 Regarding echo resul t from 03/16/2024: MD Bran Velarde MA Let's get a stress test and see him in the office after that to optimize medical therapy. Patient's made aware. Order faxed to [facility]. [facility] Office Visiton 02-19-2024 Follow-up visit [id number] Panfilo Francis 1945 M Date Provider Department Center 02/19/2024 EDUARD PRUITT [facility] Family History Adopted: Yes Level of Service:83335 [place] OFFICE/OUTPATIENT ESTABLISHED MOD MDM 30 MIN [facility] PROF CHEM 8 (BAS METB)on Anion gap [Moles/Vol] 5.7 mmol/L Normal [facility] Comment on above: Performed By: #### BMP #### [facility] [address] [place] [address] Dr. Wili Cardona Calcium [Mass/Vol] 8.5 mg/dL Normal 8.5-10.1 [facility] Comment on above: Performed By: #### BMP #### [facility] [address] [address] [address] Wili Cardona Chloride [Moles/Vol] 100 mmol/L Normal 98-107 [facility] Comment on above: Performed By: #### BMP #### [facility] [address] [address] [address] Wili Cardona CO2 [Moles/Vol] 36.1 mmol/L Critically high 21.0-32.0 [facility] Comment on above: Performed By: #### BMP #### [facility] [address] [address] [address] Wili Cardona Creatinine [Mass/Vol] 1.29 mg/dL Normal 0.70-1.30 [facility] Comment on above: Performed By: #### BMP #### [facility] [address] [address] [address] Wili Cardona EGFR-AF PERUVIAN >60 Normal >=60 [facility] Comment on above: Performed By: #### BMP #### [facility] [address] [address] [address] Wili Cardona EGFR-NON AF PERUVIAN 54 mL/min/1.73m2 Critically low >=60 [facility] Comment on above: Performed By: #### BMP #### [facility] [address] [address] [address] Wili Cardona Glucose [Mass/Vol] 131 mg/dL Critically high 74-106 [facility] Comment on above: Performed By: #### BMP #### [facility] [address] [place] [address] Dr. Wili Cardona Potassium [Moles/Vol] 3.8 mmol/L Normal 3.5-5.1 [facility] Comment on above: Performed By: #### BMP #### [facility] [address] [address] [address] Wili Cardona Sodium [Moles/Vol] 138 mmol/L Normal 136-145 [facility] Comment on above: Performed By: #### BMP #### [facility] [address] [place] [address] Dr. Wili Cardona Urea nitrogen [Mass/Vol] 23.0 mg/dL Critically high 7.0-18.0 [facility] Comment on above: Performed By: #### BMP #### [facility] [address] [place] [address] Dr. Wili Cardona Urea nitrogen/Creatin ine [Mass ratio] 17.8 mg/mg Normal [facility] Comment on above: Performed By: #### BMP #### [facility] [address] [place] [address] Dr. Wili Cardona CBC AUTO DIFFon 04-16-2022 BASO # 0.0 103/ul Normal 0.0-0.1 [facility] Comment on above: Performed By: #### CBC #### [facility] [address] [address] [address] Wili Cardona Basophils/100 WBC (Bld) 0.3 % Normal 0.2-2.0 [facility] Comment on above: Performed By: #### CBC #### [facility] [address] [place] [address] Dr. Wili Cardona EO # 0.1 103/ul Normal 0.0-0.7 [facility] Comment on above: Performed By: #### CBC #### [facility] [address] [place] [address] Dr. Wili Cardona Eosinophils/100 WBC (Bld) 1.5 % Normal 0.9-7.0 [facility] Comment on above: Performed By: #### CBC #### [facility] [address] [place] [address] Dr. Wili Cardona Erythrocyte distribution width (RBC) [Ratio] 13.4 % Normal 11.0-15.0 [facility] Comment on above: Performed By: #### CBC #### [facility] [address] [place] [address] Dr. Wili Cardona Hematocrit (Bld) [Volume fraction] 41.1 % Critically low 42.0-54.0 [facility] Comment on above: Performed By: #### CBC #### [facility] [address] [place] [address] Dr. Wili Cardona Hemoglobin (Bld) [Mass/Vol] 13.3 g/dL Critically low 14.0-18.0 [facility] Comment on above: Performed By: #### CBC #### [facility] [address] [place] [address] Dr. Wili Cardona IG # 0.02 10e3/ul Normal 0.00-0.03 [facility] Comment on above: Performed By: #### CBC #### [facility] [address] [place] [address] Dr. Wili Cardona IG % 0.3 % Normal 0.0-0.5 [facility] Comment on above: Performed By: #### CBC #### [facility] [address] [place] [address] Dr. Wili Cardona LYMPH # 1.5 103/ul Normal 1.2-3.8 [facility] Comment on above: Performed By: #### CBC #### [facility] [address] [place] [address] Dr. Wili Cardona Lymphocytes/100 WBC (Bld) 22.7 % Normal 20.5-60.0 [facility] Comment on above: Performed By: #### CBC #### [facility] [address] [place] [address] Dr. Wili Cardona MANUAL DIFF REQ NO Normal [facility] Comment on above: Performed By: #### CBC #### [facility] [address] [place] [address] Dr. Wili Cardona MCH (RBC) [Entitic mass] 30.0 pg Normal 25.9-34.0 [facility] Comment on above: Performed By: #### CBC #### [facility] [address] [place] [address] Dr. Wili Cardona MCHC (RBC) [Mass/Vol] 32.4 g/dL Normal 29.9-35.2 [facility] Comment on above: Performed By: #### CBC #### [facility] [address] [place] [address] Dr. Wili Cardona MCV (RBC) [Entitic vol] 92.6 fL Normal 80.0-94.0 [facility] Comment on above: Performed By: #### CBC #### [facility] [address] [place] [address] Dr. Wili Cardona MONO # 0.5 103/ul Normal 0.3-0.8 [facility] Comment on above: Performed By: #### CBC #### [facility] [address] [place] [address] Dr. Wili Cardona Monocytes/100 WBC (Bld) 7.4 % Normal 1.7-12.0 [facility] Comment on above: Performed By: #### CBC #### [facility] [address] [place] [address] Dr. Wili Cardona NEUT # 4.5 103/ul Normal 1.4-6.5 [facility] Comment on above: Performed By: #### CBC #### [facility] [address] [address] [address] Wili Cardona Neutrophils/100 WBC (Bld) 67.8 % Normal 43.0-75.0 [facility] Comment on above: Performed By: #### CBC #### [facility] [address] [address] [address] Wili Cardona Platelet mean volume (Bld) [Entitic vol] 9.5 fL Normal 9.5-13.5 [facility] Comment on above: Performed By: #### CBC #### [facility] [address] [place] [address] Dr. Wili Cardona PLT 151 103/ul Normal 150-450 [facility] Comment on above: Performed By: #### CBC #### [facility] [address] [place] [address] Dr. Wili Cardona RBC 4.44 106/ul Critically low 4.70-6.10 [facility] Comment on above: Performed By: #### CBC #### [facility] [address] [place] [address] Dr. Wili Cardona WBC 6.6 103/ul Normal 4.0-11.0 [facility] Comment on above: Performed By: #### CBC #### [facility] [address] [place] [address] Dr. Wili Cardona LIPID PROFILEon 04-16-2022 CHOL-HDL RATIO NORM SEE BELOW Normal [facility] Comment on above: Result Comment: 3.3 - 4.4 LOW RISK 4.4 - 7.1 AVERAGE RISK 7.1 - 11.0 MODERATE RISK >11.0 HIGH RISK Performed By: #### L IPID, CMP #### [facility] [address] [place] [address] Dr. Wlii Cardona Cholesterol [Mass/Vol] 213 mg/dL Critically high <=200 [facility] Comment on above: Performed By: #### LIPID, CMP #### [facility] [address] [address] [address] Wili Cardona Cholesterol in HDL [Mass/Vol] 54 mg/dL Normal 40-60 [facility] Comment on above: Performed By: #### LIPID, CMP #### [facility] [address] [address] [address] Wili Cardona Cholesterol in LDL [Mass/Vol] 147.2 mg/dL Normal [facility] Comment on above: Performed By: #### LIPID, CMP #### [facility] [address] [address] [address] Wili Cardona Cholesterol.tota l/Cholesterol in HDL [Mass ratio] 3.9 {ratio} Normal [facility] Comment on above: Performed By: #### LIPID, CMP #### [facility] [address] [address] [address] Wili Cardona HDL NORMAL > or = 60 mg/dl - LO W CARDIOVASCULAR RISK <40 mg/dl - HIGH CARDIOVASCULAR RISK Normal [facility] Comment on above: Performed By: #### LIPID, CMP #### [facility] [address] [address] [address] Wili Cardona LDL CALC NORMAL SEE BELOW Normal [facility] Comment on above: Result Comment: <100 mg/dl OPTIMAL 100 - 129 mg/dl NEAR OR ABOVE OPTIMAL 130 - 159 mg/dl BORDERLINE HIGH 160 - 189 mg/dl HIGH >190 mg/dl VERY HIGH Performed By: #### L IPID, CMP #### [facility] [address] [address] [address] Wili Cardona Triglyceride [Mass/Vol] 59 mg/dL Normal <=150 [facility] Comment on above: Performed By: #### LIPID, CMP #### [facility] [address] [address] [address] Wili Cardona VLDL CALC 11.8 mg/dL Normal [facility] Comment on above: Performed By: #### LIPID, CMP #### [facility] [address] [address] [address] Wili Cardona PROF 14(COMP METB)on 022 Albumin [Mass/Vol] 3.2 g/dL Critically low 3.4-5.0 [facility] Comment on above: Performed By: #### LIPID, CMP #### [facility] [address] [address] [address] Wili Cardona Albumin/Globulin [Mass ratio] 0.9 {ratio} Normal [facility] Comment on above: Performed By: #### LIPID, CMP #### [facility] [address] [address] [address] Wili Cardona ALP [Catalytic activity/Vol] 83 U/L Normal 46-116 [facility] Comment on above: Performed By: #### LIPID, CMP #### [facility] [address] [address] [address] Wili Cardona ALT [Catalytic activity/Vol] 17 U/L Normal 16-63 [facility] Comment on above: Performed By: #### LIPID, CMP #### [facility] [address] [place] [address] Dr. Wili Cardona Anion gap [Moles/Vol] 10.6 mmol/L Normal [facility] Comment on above: Performed By: #### LIPID, CMP #### [facility] [address] [address] [address] Wili Cardona AST [Catalytic activity/Vol] 16 U/L Normal 15-37 [facility] Comment on above: Performed By: #### LIPID, CMP #### [facility] [address] [place] [address] Dr. Wili Cardona Bilirubin [Mass/Vol] 0.6 mg/dL Normal 0.2-1.0 [facility] Comment on above: Performed By: #### LIPID, CMP #### [facility] [address] [place] [address] Dr. Wili Cardona Calcium [Mass/Vol] 8.9 mg/dL Normal 8.5-10.1 [facility] Comment on above: Performed By: #### LIPID, CMP #### [facility] [address] [address] [address] Wili Cardona Chloride [Moles/Vol] 102 mmol/L Normal 98-107 [facility] Comment on above: Performed By: #### LIPID, CMP #### [facility] [address] [address] [address] Wili Cardona CO2 [Moles/Vol] 32.7 mmol/L Critically high 21.0-32.0 [facility] Comment on above: Performed By: #### LIPID, CMP #### [facility] [address] [address] [address] Wili Cardona Creatinine [Mass/Vol] 1.13 mg/dL Normal 0.70-1.30 [facility] Comment on above: Performed By: #### LIPID, CMP #### [facility] [address] [address] [address] Wili Cardona EGFR-AF PERUVIAN >60 Normal >=60 [facility] Comment on above: Performed By: #### LIPID, CMP #### [facility] [address] [place] [address] Dr. Wili Cardona EGFR-NON AF PERUVIAN >60 Normal >=60 [facility] Comment on above: Performed By: #### LIPID, CMP #### [facility] [address] [place] [address] Dr. Wili Cardona Globulin (S) [Mass/Vol] 3.4 g/dL Normal [facility] Comment on above: Performed By: #### LIPID, CMP #### [facility] [address] [place] [address] Dr. Wili Cardona Glucose [Mass/Vol] 85 mg/dL Normal 74-106 [facility] Comment on above: Performed By: #### LIPID, CMP #### [facility] [address] [place] [address] Dr. Wili Cardona Potassium [Moles/Vol] 5.3 mmol/L Critically high 3.5-5.1 [facility] Comment on above: Performed By: #### LIPID, CMP #### [facility] [address] [place] [address] Dr. Wili Cardona Protein [Mass/Vol] 6.6 g/dL Normal 6.4-8.2 [facility] Comment on above: Performed By: #### LIPID, CMP #### [facility] [address] [address] [address] Wili Cardona Sodium [Moles/Vol] 140 mmol/L Normal 136-145 [facility] Comment on above: Performed By: #### LIPID, CMP #### [facility] [address] [address] [address] Wili Cardona Urea nitrogen [Mass/Vol] 21.0 mg/dL Critically high 7.0-18.0 [facility] Comment on above: Performed By: #### LIPID, CMP #### [facility] [address] [address] [address] Wili Cardona Urea nitrogen/Creatin ine [Mass ratio] 18.6 mg/mg Normal [facility] Comment on above: Performed By: #### LIPID, CMP #### [facility] [address] [address] [address] Wili Cardona BASIC METABOLIC PANELon 10-0 Calcium 9.0 mg/dL Normal 8.6-10.3 [facility] Comment on above: Order Comment: No: Do not add to previou s draw Performed By: #### 1 0070, [id number], [id number] ####[facility] [facility] [place] [address], [facility] Chloride 102 mmol/L Normal 98-107 [facility] Comment on above: Order Comment: No: Do not add to previou s draw Performed By: #### 1 0070, [id number], [id number] ####[facility] [facility] [place] [address], [facility] CO2 28 mmol/L Normal 21-31 [facility] Comment on above: Order Comment: No: Do not add to previou s draw Performed By: #### 1 0070, [id number], [id number] ####[facility] [facility] [place] [address], [facility] Creatinine 1.17 mg/dL Normal 0.70-1.30 [facility] Comment on above: Order Comment: No: Do not add to previou s draw Performed By: #### 1 0070, [id number], 75774 ####[facility] [place] [address], [facility] eGFR (black) mL/min/{1.73_m2} Normal >60 [facility] Comment on above: Order Comment: No: Do not add to previou s draw Result Comment: Calc ulation may not be valid for patients over 70 years Performed By: #### 1 0070, 55275, 30748 ####[facility] [place] [address], [facility] eGFR (non-black) mL/min/{1.73_m2} Normal >60 [facility] Comment on above: Order Comment: No: Do not add to previou s draw Result Comment: Calc ulation may not be valid for patients over 70 years Performed By: #### 1 0070, 18056, 01894 ####[facility] [place] [address], [facility] Glucose mass conc 87 mg/dL Normal 70-100 [facility] Comment on above: Order Comment: No: Do not add to previou s draw Performed By: #### 1 0070, 11825, 76920 ####[facility] [place] [address], [facility] Potassium molar conc 4.3 mmol/L Normal 3.5-5.1 [facility] Comment on above: Order Comment: No: Do not add to previou s draw Performed By: #### 1 0070, 46095, 89462 ####[facility] [place] [address], [facility] Sodium 136 mmol/L Normal 136-145 [facility] Comment on above: Order Comment: No: Do not add to previou s draw Performed By: #### 1 0070, 49568, 17958 ####[facility] [place] [address], [facility] Urea nitrogen 15 mg/dL Normal 7-25 [facility] Comment on above: Order Comment: No: Do not add to previou s draw Performed By: #### 1 0070, 46437, 39015 ####[facility] [place] [address], [facility] Cardiovascular Lab Reporton 06-12-2017 Cardiovascular Lab Report [facility] Patient Name: Dylon Francis [facility] MR #: [id number] Physician: Eduard Wang M.D.Medicine Service Date: 06/11/2017Division of Birthdate: 4Cardiology Room #: 3AB [id number] [facility]ovascularServicTexas [facility] [facility], [place] [address]Jocml Fax Cardiovascular Laboratory ReportCARDIAC CATHETERIZATION REPORTINDICATION:Dylon Francis [...] Hesigned informed consent. He was brought to lab specialist in a fasting state.The Cesar's test was [...] micropuncture catheterfollowed by a dilator of a 5-Greenlandic pinnacle sheath. Eventually, we wereable to overcome the subcutaneous tissue and advance the 5-Greenlandic pinnaclesheath and secure it in place.Using the angled Glidewire, the wire was advanced across the previouslyplaced aortic stent graft intraluminally and this allowed tracking of5-Greenlandic diagnostic catheters. Bilateral selective coronary angiographywas then performed using a 5-Greenlandic JL4 and AR modified diagnosticcatheters. Angiography was performed in multiple views.Heparin was administered intravenously and therapeutic ACT confirmed duringthe procedure. A 5-Greenlandic XB3.5 guiding catheter was advanced and used toengage the left main coronary ostium. A Common Curriculumwater wire was advanced intothe distal ramus vessel. [...] left femoralarteriotomy site was managed with a 6-Greenlandic Angio-Seal device with goodhemostasis. He tolerated the [...] Follow up in Cardiology Clinic.Electronically Signed by:Eduard Hopson M.D. 06/13/2017 10:57 P Eduard Hopson M.D.Date Dict: 06/11/2017/07:38 P/Eduard Hopson M.D.Date Trans: 06/12/2017 04:56 P/Reji_JN:[id number]: Charlie Stark M.D. [place] [id number] [facility] [place] [address] Normal [facility] POC GLUCOSE LABon 06-12-2017 Glucose mass conc 82 mg/dL Normal 70-100 [facility] Comment on above: Performed By: #### 31368, 30765, 81094 # ###[facility] [place] [address], [facility] Glucose mass conc 146 mg/dL High 70-100 [facility] Comment on above: Performed By: #### 58388, 65113, 98753 # ###[facility] BASIC METABOLIC PANELon 10-0 Calcium 8.5 mg/dL Low 8.6-10.3 [facility] Comment on above: Order Comment: No: Do not add to previou s draw Performed By: #### 5 6101 ####[facility] [place] [address], [facility] Chloride 104 mmol/L Normal 98-107 [facility] Comment on above: Order Comment: No: Do not add to previou s draw Performed By: #### 5 6101 ####[facility] [place] [address], [facility] CO2 28 mmol/L Normal 21-31 [facility] Comment on above: Order Comment: No: Do not add to previou s draw Performed By: #### 5 6101 ####[facility] [place] [address], [facility] Creatinine 1.29 mg/dL Normal 0.70-1.30 [facility] Comment on above: Order Comment: No: Do not add to previou s draw Performed By: #### 5 6101 ####[facility] [place] [address], [facility] eGFR (black) mL/min/{1.73_m2} Normal >60 [facility] Comment on above: Order Comment: No: Do not add to previou s draw Result Comment: Calc ulation may not be valid for patients over 70 years Performed By: #### 5 6101 ####[facility] [place] [address], [facility] eGFR (non-black) 55 ml/min/1.73sq m Abnormal >60 [facility] Comment on above: Order Comment: No: Do not add to previou s draw Result Comment: Calc ulation may not be valid for patients over 70 years Performed By: #### 5 6101 ####[facility] [place] [address], [facility] Glucose mass conc 76 mg/dL Normal 70-100 [facility] Comment on above: Order Comment: No: Do not add to previou s draw Performed By: #### 5 6101 ####[facility] [place] [address], [facility] Potassium molar conc 4.0 mmol/L Normal 3.5-5.1 [facility] Comment on above: Order Comment: No: Do not add to previou s draw Performed By: #### 5 6101 ####[facility] [place] [address], [facility] Sodium 139 mmol/L Normal 136-145 [facility] Comment on above: Order Comment: No: Do not add to previou s draw Performed By: #### 5 6101 ####[facility] [place] [address], [facility] Urea nitrogen 25 mg/dL Normal 7-25 [facility] Comment on above: Order Comment: No: Do not add to previou s draw Performed By: #### 5 6101 ####[facility] [place] [address], [facility] POC GLUCOSE LABon 06-11-2017 Glucose mass conc 70 mg/dL Normal 70-100 [facility] Comment on above: Performed By: #### 06228, 96936, 84457 # ###[facility] [facility] [place] [address], [facility] Glucose mass conc 57 mg/dL Low 70-100 [facility] Comment on above: Performed By: #### 09804 ####[facility] [facility] [place] [address], [facility] Glucose mass conc 93 mg/dL Normal 70-100 [facility] Comment on above: Performed By: #### 85706 ####[facility] [facility] [place] [address], [facility] Glucose mass conc 64 mg/dL Low 70-100 [facility] Comment on above: Performed By: #### 66827 ####[facility] [facility] [place] [address], [facility] Glucose mass conc 75 mg/dL Normal 70-100 [facility] Comment on above: Performed By: #### 20768 ####[facility] [place] [address], [facility] PROTHROMBIN TIMEon 7 INR Coag RelTime (PPP) 1.11 {INR} Normal 0.91-1.16 [facility] Comment on above: Order Comment: No: [...] OF ACTION, CLINICALEFFECTIVENESS, AND OPTIMAL THERAPEUTIC RANGE. [id number];108:231S-246S. Performed By: #### 5 6101 ####[facility] Prothrombin time (PT) Coag time (PPP) 14.4 s Normal 12.3-14.8 [facility] Comment on above: Order Comment: No: Do not add to previou s draw Result Comment: ALL RESULTS MUST BE INTERPRETED WITH RESPECT TO BLOOD DRAWING ARTIFACTOR DILUTION ERROR OF ANTICOAGULANT AT THE TIME OF SAMPLING. Performed By: #### 5 6101 ####[facility] [place] [address], [facility] BASIC METABOLIC PANELon 10-0 Calcium 9.2 mg/dL Normal 8.6-10.3 [facility] Comment on above: Order Comment: No: Do not add to previou s draw Performed By: #### 5 6101 ####[facility] [facility] [place] [address], [facility] Chloride 100 mmol/L Normal 98-107 [facility] Comment on above: Order Comment: No: Do not add to previou s draw Performed By: #### 5 6101 ####[facility] [place] [address], [facility] CO2 29 mmol/L Normal 21-31 [facility] Comment on above: Order Comment: No: Do not add to previou s draw Performed By: #### 5 6101 ####[facility] [place] [address], [facility] Creatinine 1.56 mg/dL High 0.70-1.30 [facility] Comment on above: Order Comment: No: Do not add to previou s draw Performed By: #### 5 6101 ####[facility] [place] [address], [facility] eGFR (black) 53 ml/min/1.73sq m Abnormal >60 [facility] Comment on above: Order Comment: No: Do not add to previou s draw Result Comment: Calc ulation may not be valid for patients over 70 years Performed By: #### 5 6101 ####[facility] [place] [address], [facility] eGFR (non-black) 44 ml/min/1.73sq m Abnormal >60 [facility] Comment on above: Order Comment: No: Do not add to previou s draw Result Comment: Calc ulation may not be valid for patients over 70 years Performed By: #### 5 6101 ####[facility] [place] [address], [facility] Glucose mass conc 88 mg/dL Normal 70-100 [facility] Comment on above: Order Comment: No: Do not add to previou s draw Performed By: #### 5 6101 ####[facility] [place] [address], [facility] Potassium molar conc 4.3 mmol/L Normal 3.5-5.1 [facility] Comment on above: Order Comment: No: Do not add to previou s draw Performed By: #### 5 6101 ####[facility] [place] [address], [facility] Sodium 138 mmol/L Normal 136-145 [facility] Comment on above: Order Comment: No: Do not add to previou s draw Performed By: #### 5 6101 ####[facility] Urea nitrogen 29 mg/dL High 7-25 [facility] Comment on above: Order Comment: No: Do not add to previou s draw Performed By: #### 5 6101 ####[facility] CBC W/DIFFon 06-10-2017 Basophils Auto #/vol (Bld) 0.4 % Normal 0.0-2.0 [facility] Comment on above: Order Comment: No: Do not add to previou s draw Performed By: #### 5 6101 ####[facility] Eosinophils/100 leukocytes 2.1 % Normal 0.0-5.0 [facility] Comment on above: Order Comment: No: Do not add to previou s draw Performed By: #### 5 6101 ####[facility] Erythrocyte distribution width Auto Ratio (RBC) 14.9 % Normal 11.5-16.9 [facility] Comment on above: Order Comment: No: Do not add to previou s draw Performed By: #### 5 6101 ####[facility] Erythrocytes (RBC) 4.60 mill/mm3 Normal 4.30-5.90 [facility] Comment on above: Order Comment: No: Do not add to previou s draw Performed By: #### 5 6101 ####[facility] Hematocrit (HCT) 40.0 % Normal 39.0-55.0 [facility] Comment on above: Order Comment: No: Do not add to previou s draw Performed By: #### 5 6101 ####[facility] Hemoglobin mass conc (Bld) 12.9 g/dL Low 13.9-16.3 [facility] Comment on above: Order Comment: No: Do not add to previou s draw Performed By: #### 5 6101 ####[facility] [place] [address], [facility] Lymphocytes/100 leukocytes 21.0 % Normal 20.0-40.0 [facility] Comment on above: Order Comment: No: Do not add to previou s draw Performed By: #### 5 6101 ####[facility] [place] [address], [facility] MCH 27.9 pg Normal 24.0-32.0 [facility] Comment on above: Order Comment: No: Do not add to previou s draw Performed By: #### 5 6101 ####[facility] [place] [address], [facility] MCHC mass conc (RBC) 32.1 g/dL Normal 32.0-36.0 [facility] Comment on above: Order Comment: No: Do not add to previou s draw Performed By: #### 5 6101 ####[facility] [place] [address], [facility] MCV 87.0 fL Normal 80.0-100.0 [facility] Comment on above: Order Comment: No: Do not add to previou s draw Performed By: #### 5 6101 ####[facility] [place] [address], [facility] METHOD Normal RBC Morphology Normal [facility] Comment on above: Order Comment: No: Do not add to previou s draw Performed By: #### 5 6101 ####[facility] [place] [address], [facility] MONOS 6.6 % Normal 2-8 [facility] Comment on above: Order Comment: No: Do not add to previou s draw Performed By: #### 5 6101 ####[facility] [place] [address], [facility] Neutrophils/100 leukocytes 69.9 % Normal 50-70 [facility] Comment on above: Order Comment: No: Do not add to previou s draw Performed By: #### 5 6101 ####[facility] [place] [address], [facility] PLAT CNT 210 Thou/mm3 Normal 100-400 [facility] Comment on above: Order Comment: No: Do not add to previou s draw Performed By: #### 5 6101 ####[facility] [facility].[address] WBC (Leukocytes) 8.7 Thou/mm3 Normal 4.0-10.0 [facility] Comment on above: Order Comment: No: Do not add to previou s draw Performed By: #### 5 6101 ####[facility] [facility].[address] POC GLUCOSE LABon 06-10-2017 Glucose mass conc 97 mg/dL Normal 70-100 [facility] Comment on above: Performed By: #### [id number] ####[facility] [facility].[address] PROTHROMBIN TIMEon 7 INR Coag RelTime (PPP) 1.10 {INR} Normal 0.91-1.16 [facility] Comment on above: Order Comment: No: [...] OF ACTION, CLINICALEFFECTIVENESS, AND OPTIMAL THERAPEUTIC RANGE. [id number];108:231S-246S. Performed By: #### 5 6101 ####[facility] [facility].[address] Prothrombin time (PT) Coag time (PPP) 14.3 s Normal 12.3-14.8 [facility] Comment on above: Order Comment: No: Do not add to previou s draw Result Comment: ALL RESULTS MUST BE INTERPRETED WITH RESPECT TO BLOOD DRAWING ARTIFACTOR DILUTION ERROR OF ANTICOAGULANT AT THE TIME OF SAMPLING. Performed By: #### 5 6101 ####[facility] [facility].[address] Discharge Summaryon 05-18-20 Discharge Summary MR#: [id number] [facility] Dylon Francis Admitted: 05/13/2017 [...] placement in 2006. He was evaluated at [facility] and [facility] for thrombosed IVC filter and was told that conservative management is the best option.9. Iron deficiency anemia.PROCEDURE:1. Dual chamber right atrium and right ventricular AICD on 05/14/2017.2. Right ventricular lead repositioning on 05/15/2017.HPI: Mr. Francis is a 71 years old male who was transferred from [facility] with a presyncopal episode and fatigue. His family reported thathe was dizzy, lightheaded and incoherent after dinner. EKG at [facility] showed high-degree AV block with subsequent [...] fatigue in the past.He was transferred to [facility] with symptomatic high second-degree AV block forpacemaker insertion.During hospital stay to [facility], the patient had episode of [...] personal documentation from me. Date Dict: 05/17/2017/08:48 Jimy/SCAR Gutierrezate Trans: 05/18/2017 02:15 A/EuniceN_JN:[id number]: Charlie Stark M.D. [place] [id number] [facility] [phone] [place] [facility] Cardiovascular Lab Reporton 05-17-2017 Cardiovascular Lab Report [facility] Patient Name: Dylon Francis [facility] MR #: [id number] Physician: Dorcas Chin,Department of M.D.Medicine Service Date: 05/15/2017Division of Birthdate: 4Cardiology Room #: 3AB [id number] Cardiovascular[address], [place] [address]Wvbpc Fax Cardiovascular Laboratory ReportPROCEDURE: Revision of RV [...] (RVlead) and a stylet with a 3/4 [place] curve was forwarded down the lead andthe [...] lead.2. RV lead, Biotronik Solia S53.3. Model #74293, serial #[id number]. RV sensing was 12 mV.5. RV pacing threshold was 0.4 V at 0.4 milliseconds.6. RV lead impedance 682 ohms.7. RA lead retained and capped inside the port of the pacer.8. The check showed a P-wave of 3.4 mV, a threshold of 0.8 V at 0.4 milliseconds and the impedance was 448 ohms.9. This is a Biotronik Solia S45 cm, model #697506 and serial #[id number].Retained pulse generator model Eluna 8 DR-T, model #914682 and serial#[id number].FINAL CONCLUSIONS:1. Successful repositioning of RV lead.2. We [...] 05/16/2017/05:30 P/Dorcas Chin M.D.Date Trans: 05/17/2017 06:31 A/mmoDN_JN:[id number]: Charlie Stark M.D. [address] [place] [address] Normal [facility] BASIC METABOLIC PANELon 09-0 Calcium 8.4 mg/dL Low 8.6-10.3 [facility] Comment on above: Order Comment: No: Do not add to previou s draw Performed By: #### 5 0608 ####[facility] [facility] [place] [address], [facility] Chloride 101 mmol/L Normal 98-107 [facility] Comment on above: Order Comment: No: Do not add to previou s draw Performed By: #### 5 0608 ####[facility] [facility] [place] [address], [facility] CO2 31 mmol/L Normal 21-31 [facility] Comment on above: Order Comment: No: Do not add to previou s draw Performed By: #### 5 0608 ####[facility] [facility] [place] [address], [facility] Creatinine 1.39 mg/dL High 0.70-1.30 [facility] Comment on above: Order Comment: No: Do not add to previou s draw Performed By: #### 5 0608 ####[facility] [place] [address], [facility] eGFR (black) mL/min/{1.73_m2} Normal >60 [facility] Comment on above: Order Comment: No: Do not add to previou s draw Result Comment: Calc ulation may not be valid for patients over 70 years Performed By: #### 5 0608 ####[facility] eGFR (non-black) 50 ml/min/1.73sq m Abnormal >60 [facility] Comment on above: Order Comment: No: Do not add to previou s draw Result Comment: Calc ulation may not be valid for patients over 70 years Performed By: #### 5 0608 ####[facility] [place] [address], [facility] Glucose mass conc 70 mg/dL Normal 70-100 [facility] Comment on above: Order Comment: No: Do not add to previou s draw Performed By: #### 5 0608 ####[facility] [place] [address], [facility] Potassium molar conc 4.0 mmol/L Normal 3.5-5.1 [facility] Comment on above: Order Comment: No: Do not add to previou s draw Performed By: #### 5 0608 ####[facility] [facility] [place] [address], [facility] Sodium 137 mmol/L Normal 136-145 [facility] Comment on above: Order Comment: No: Do not add to previou s draw Performed By: #### 5 0608 ####[facility] [facility] [place] [address], [facility] Urea nitrogen 20 mg/dL Normal 7-25 [facility] Comment on above: Order Comment: No: Do not add to previou s draw Performed By: #### 5 0608 ####[facility] [place] [address], [facility] CBC W/DIFFon 05-16-2017 Basophils Auto #/vol (Bld) 0.5 % Normal 0.0-2.0 [facility] Comment on above: Order Comment: No: Do not add to previou s draw Performed By: #### 5 0608 ####[facility] [place] [address], [facility] Eosinophils/100 leukocytes 3.3 % Normal 0.0-5.0 [facility] Comment on above: Order Comment: No: Do not add to previou s draw Performed By: #### 5 0608 ####[facility] [place] [address], [facility] Erythrocyte distribution width Auto Ratio (RBC) 15.0 % Normal 11.5-16.9 [facility] Comment on above: Order Comment: No: Do not add to previou s draw Performed By: #### 5 0608 ####[facility] [place] [address], [facility] Erythrocytes (RBC) 4.59 mill/mm3 Normal 4.30-5.90 [facility] Comment on above: Order Comment: No: Do not add to previou s draw Performed By: #### 5 0608 ####[facility] [place] [address], [facility] Hematocrit (HCT) 40.0 % Normal 39.0-55.0 [facility] Comment on above: Order Comment: No: Do not add to previou s draw Performed By: #### 5 0608 ####[facility] [place] [address], [facility] Hemoglobin mass conc (Bld) 12.8 g/dL Low 13.9-16.3 [facility] Comment on above: Order Comment: No: Do not add to previou s draw Performed By: #### 5 0608 ####[facility] [place] [address], [facility] Lymphocytes/100 leukocytes 20.3 % Normal 20.0-40.0 [facility] Comment on above: Order Comment: No: Do not add to previou s draw Performed By: #### 5 0608 ####[facility] MCH 27.9 pg Normal 24.0-32.0 [facility] Comment on above: Order Comment: No: Do not add to previou s draw Performed By: #### 5 0608 ####[facility] MCHC mass conc (RBC) 32.1 g/dL Normal 32.0-36.0 [facility] Comment on above: Order Comment: No: Do not add to previou s draw Performed By: #### 5 0608 ####[facility] [facility].[address] MCV 87.2 fL Normal 80.0-100.0 [facility] Comment on above: Order Comment: No: Do not add to previou s draw Performed By: #### 5 0608 ####[facility] [facility].[address] METHOD Normal [facility] Comment on above: Order Comment: No: Do not add to previou s draw Result Comment: Auto mated differential performedNormal RBC Morphology Performed By: #### 5 0608 ####[facility] MONOS 8.2 % High 2-8 [facility] Comment on above: Order Comment: No: Do not add to previou s draw Performed By: #### 5 0608 ####[facility].[address] Neutrophils/100 leukocytes 67.7 % Normal 50-70 [facility] Comment on above: Order Comment: No: Do not add to previou s draw Performed By: #### 5 0608 ####[facility] [facility] [place] [address], [facility] PLAT CNT 183 Thou/mm3 Normal 100-400 [facility] Comment on above: Order Comment: No: Do not add to previou s draw Performed By: #### 5 0608 ####[facility] [facility] [place] [address], [facility] WBC (Leukocytes) 5.7 Thou/mm3 Normal 4.0-10.0 [facility] Comment on above: Order Comment: No: Do not add to previou s draw Performed By: #### 5 0608 ####[place] [address] POC GLUCOSE LABon 05-16-2017 Glucose mass conc 120 mg/dL High 70-100 [facility] Comment on above: Performed By: #### [address]9866 ####[address] Glucose mass conc 71 mg/dL Normal 70-100 [facility] Comment on above: Performed By: #### 72381 ####[address] PORTABLE CHEST 1 VIEWon PORTABLE CHEST 1 VIEW [facility] Fnyzsjnmc[address] [place] [address] ========Patient Name: DYLON FRANCIS : 1945Sex: MAge: Race: WhiteMRN: [id number]. Location: [id number] Status: IVisit #: [id number] Date: 05/16/2017 8:00:00 AMCompleted Date: 05/16/2017 07:24 AMRequesting Provider: DIAZ TERAN Attending Provider: ROSEMARY MONTGOMERY Report Copy To: Signs & Symptoms: Post Pacemaker/AICD PlacementHistory: Patient history not availableComments: Check Pacemaker/AICD Lead PositionExam: PORTABLE CHEST 1 VIEWAccession #: [id number] PORTABLE CHEST 1 VIEW 05/16/2017 7:24 AM [...] findings. Electronically signed by:Matthew Serrano. Transcribed by: [email or web address], User Resident: GAIL GARCIAElectronically Signed by: MATTHEW SERRANO @ 05/16/2017 10:04 AMI personally read this/these film(s) with this resident Normal [facility] Comment on above: Order Comment: No: Do not add to previou s draw PROTHROMBIN TIMEon 7 INR Coag RelTime (PPP) 1.18 {INR} High 0.91-1.16 [facility] Comment on above: Order Comment: No: [...] OF ACTION, CLINICALEFFECTIVENESS, AND OPTIMAL THERAPEUTIC RANGE. [id number];108:231S-246S. Performed By: #### 5 0608 ####[facility] [facility].[address] Prothrombin time (PT) Coag time (PPP) 15.1 s High 12.3-14.8 [facility] Comment on above: Order Comment: No: Do not add to previou s draw Result Comment: ALL RESULTS MUST BE INTERPRETED WITH RESPECT TO BLOOD DRAWING ARTIFACTOR DILUTION ERROR OF ANTICOAGULANT AT THE TIME OF SAMPLING. Performed By: #### 5 0608 ####[facility] [facility].[address] APTTon 05-15-2017 aPTT 31.8 s Normal 25.0-35.0 [facility] Comment on above: Order Comment: if [...] FOR THIS PURPOSE. Performed By: #### 5 610, 97551 ####[facility] BASIC METABOLIC PANELon 09-0 Calcium 8.8 mg/dL Normal 8.6-10.3 [facility] Comment on above: Order Comment: if not already doneNo: Do not add to previous draw Performed By: #### 5 610, 20916 ####[facility] Chloride 103 mmol/L Normal 98-107 [facility] Comment on above: Order Comment: if not already doneNo: Do not add to previous draw Performed By: #### 5 610, 59575 ####[place] [address] [facility].[address] CO2 29 mmol/L Normal 21-31 [facility] Comment on above: Order Comment: if not already doneNo: Do not add to previous draw Performed By: #### 5 610, 57533 ####[place] [address] [facility].[address] Creatinine 1.71 mg/dL High 0.70-1.30 [facility] Comment on above: Order Comment: if not already doneNo: Do not add to previous draw Performed By: #### 5 610, 97955 ####[facility] eGFR (black) 48 ml/min/1.73sq m Abnormal >60 [facility] Comment on above: Order Comment: if not already doneNo: Do not add to previous draw Result Comment: Calc ulation may not be valid for patients over 70 years Performed By: #### 5 610, 40594 ####[facility] eGFR (non-black) 39 ml/min/1.73sq m Abnormal >60 [facility] Comment on above: Order Comment: if not already doneNo: Do not add to previous draw Result Comment: Calc ulation may not be valid for patients over 70 years Performed By: #### 5 6101, 55199 ####[facility] [place] [address], [facility] Glucose mass conc 94 mg/dL Normal 70-100 [facility] Comment on above: Order Comment: if not already doneNo: Do not add to previous draw Performed By: #### 5 6101, 91072 ####[facility] [place] [address], [facility] Potassium molar conc 4.9 mmol/L Normal 3.5-5.1 [facility] Comment on above: Order Comment: if not already doneNo: Do not add to previous draw Performed By: #### 5 6101, 07327 ####[facility] [place] [address], [facility] Sodium 138 mmol/L Normal 136-145 [facility] Comment on above: Order Comment: if not already doneNo: Do not add to previous draw Performed By: #### 5 6101, 99277 ####[facility] [place] [address], [facility] Urea nitrogen 24 mg/dL Normal 7-25 [facility] Comment on above: Order Comment: if not already doneNo: Do not add to previous draw Performed By: #### 5 6101, 03908 ####[facility] [place] [address], [facility] CBC W/DIFFon 05-15-2017 Basophils Auto #/vol (Bld) 0.4 % Normal 0.0-2.0 [facility] Comment on above: Order Comment: Unknown Performed By: #### 5 0103 ####[facility] Eosinophils/100 leukocytes 1.8 % Normal 0.0-5.0 [facility] Comment on above: Order Comment: Unknown Performed By: #### 5 0103 ####[facility] Erythrocyte distribution width Auto Ratio (RBC) 14.9 % Normal 11.5-16.9 [facility] Comment on above: Order Comment: Unknown Performed By: #### 5 0103 ####[facility] Erythrocytes (RBC) 4.72 mill/mm3 Normal 4.30-5.90 [facility] Comment on above: Order Comment: Unknown Performed By: #### 5 0103 ####[facility] Hematocrit (HCT) 41.0 % Normal 39.0-55.0 [facility] Comment on above: Order Comment: Unknown Performed By: #### 5 0103 ####[facility] Hemoglobin mass conc (Bld) 13.1 g/dL Low 13.9-16.3 [facility] Comment on above: Order Comment: Unknown Performed By: #### 5 0103 ####[facility] [place] [address], [facility] Lymphocytes/100 leukocytes 14.3 % Low 20.0-40.0 [facility] Comment on above: Order Comment: Unknown Performed By: #### 5 0103 ####[facility] [place] [address], [facility] MCH 27.7 pg Normal 24.0-32.0 [facility] Comment on above: Order Comment: Unknown Performed By: #### 5 0103 ####[facility] [place] [address], [facility] MCHC mass conc (RBC) 31.9 g/dL Low 32.0-36.0 [facility] Comment on above: Order Comment: Unknown Performed By: #### 5 0103 ####[facility] [place] [address], [facility] MCV 86.8 fL Normal 80.0-100.0 [facility] Comment on above: Order Comment: Unknown Performed By: #### 5 0103 ####[facility] [place] [address], [facility] METHOD Normal [facility] Comment on above: Order Comment: Unknown Result Comment: Auto mated differential performedNormal RBC Morphology Performed By: #### 5 0103 ####[facility] [facility] [place] [address], [facility] MONOS 7.0 % Normal 2-8 [facility] Comment on above: Order Comment: Unknown Performed By: #### 5 0103 ####[facility] [facility] [place] [address], [facility] Neutrophils/100 leukocytes 76.5 % High 50-70 [facility] Comment on above: Order Comment: Unknown Performed By: #### 5 0103 ####[facility] [facility] [place] [address], [facility] PLAT CNT 204 Thou/mm3 Normal 100-400 [facility] Comment on above: Order Comment: Unknown Performed By: #### 5 0103 ####[facility] [place] [address], [facility] WBC (Leukocytes) 6.1 Thou/mm3 Normal 4.0-10.0 [facility] Comment on above: Order Comment: Unknown Performed By: #### 5 0103 ####[facility] [place] [address], [facility] CHEST AND LATERALon 05-15-20 17 CHEST AND LATERAL [facility] Zclrfsvjq[address] [place] [address] ========Patient Name: DYLON FRANCIS : 1945Sex: MAge: Race: WhiteMRN: [id number]. Location: [id number] Status: IVisit #: [id number] Date: 05/15/2017 7:00:00 AMCompleted Date: 05/15/2017 08:35 AMRequesting Provider: VANDANA BLANCO Attending Provider: ROSEMARY MONTGOMERY Report Copy To: Signs & Symptoms: Post Pacemaker/AICD PlacementHistory: Patient history not availableComments: Check Pacemaker/AICD Lead Position, Chest X-ray PA \EANDE\ LAT in Dept ;DO NOT lift affected arm above shoulder. S/P pacemaker/ICD implant. Verify lead placementExam: CHEST AND LATERALAccession #: [id number] CHEST AND LATERAL 05/15/2017 8:35 AM EDT [...] lobe. Electronically signed by:Malika Mendiola. Transcribed by: [id number], User Resident: Electronically Signed by: MALIKA MENDIOLA @ 05/15/2017 10:18 AM Normal [facility] Comment on above: Order Comment: if not already doneNo: Do not add to previous draw Cardiovascular Lab Reporton 05-15-2017 Cardiovascular Lab Report [facility] Patient Name: Dylon Francis [facility] MR #: [id number] Physician: DIANA Gtzepartment of Service Date: 05/14/2017Medicine Birthdate: [birth year]Division of Room #: 3AB [id number] CardiovascularServicB[facility]er[address] [place], [place] [address]Rtzea Fax Cardiovascular Laboratory ReportPROCEDURE: Dual-chamber pacemaker implantation.FRUIT PACKER: Vandana Blanco M.D.REASON FOR THE PROCEDURE: Complete [...] andhyponatremia, who presented to the hospital at [place] because he had beenhaving presyncopal episodes and extreme fatigue. His family thought he hada stroke and on 05/13/2017, he was brought to [facility]. The 1st EKG showedhigh-degree AV [...] aJ-wire. The sheath was then removed and 6-Greenlandic sheath was implanted overthe J wire. A double wiring was done. The 6-Greenlandic sheath was removed.One of the wires was preserved for later, the other wire had implantationof a new 6-Greenlandic lead. After removal of the wire, the ventricular leadwas placed in the RV mid septum with excellent parameters. Subsequently,the sheath was torn, the lead was tied into place. The atrial lead wasthen implanted through a 6-Greenlandic sheath that was placed over the otherJ-wire. [...] are as follows. The device is a [employer] Delivery 8 DRT Pro MRI, model #253170, the serial #[id number]. The date of implant is 05/14/2017. The atrial lead is a Biotronik Solia S 45 cm, serial #[id number]. The threshold for the atrial lead is 1.4 V at 0.4 milliseconds, the P wave was 4.4 mV and the impedance is 448 ohms. The ventricular lead is a Biotronik Solia S 53, serial #[id number], model #682248. The threshold for the ventricular lead is [...] Dict: 05/14/2017/05:38 P/Sindy Gtz Trans: 05/15/2017 02:03 P/mmoDN_JN:[id number]: Charlie Stark M.D. [address] [place] [address] Normal [facility] MAGNESIUM BLOODon 05-15-2017 Magnesium 2.2 mg/dL Normal 1.9-2.7 [facility] Comment on above: Order Comment: if not already doneNo: Do not add to previous draw Performed By: #### 5 6101, 25014 ####[facility] [facility] [place] [address], [facility] PHOSPHORUS BLOODon 7 Phosphate 3.2 mg/dL Normal 2.5-5.0 [facility] Comment on above: Order Comment: Unknown Performed By: #### 4 1000, 59150, 69864 ####[facility] [facility] [place] [address], [facility] POC GLUCOSE LABon 05-15-2017 Glucose mass conc 84 mg/dL Normal 70-100 [facility] Comment on above: Performed By: #### 44375 ####[facility] [facility] [place] [address], [facility] Glucose mass conc 72 mg/dL Normal 70-100 [facility] Comment on above: Performed By: #### 73272, 23638 ####[place] [address] [facility] [place] [address], [facility] Glucose mass conc 63 mg/dL Low 70-100 [facility] Comment on above: Performed By: #### 94986, 68412 ####[facility] [facility] [place] [address], [place] Glucose mass conc 60 mg/dL Low 70-100 [facility] Comment on above: Performed By: #### 47779, 79245 ####[facility] [facility] [place] [address], [place] Glucose mass conc 82 mg/dL Normal 70-100 [facility] Comment on above: Performed By: #### 89693, 22928 ####[facility] [facility] [place] [address], [facility] Glucose mass conc 68 mg/dL Low 70-100 [facility] Comment on above: Performed By: #### 81841, 59359 ####[facility] [place] [address], [facility] Glucose mass conc 95 mg/dL Normal 70-100 [facility] Comment on above: Performed By: #### 46678 ####[facility] [facility] [place] [address], [facility] PROTHROMBIN TIMEon 7 INR Coag RelTime (PPP) 1.34 {INR} High 0.91-1.16 [facility] Comment on above: Order Comment: if not [...] OF ACTION, CLINICALEFFECTIVENESS, AND OPTIMAL THERAPEUTIC RANGE. [id number];108:231S-246S. Performed By: #### 5 6101, 63149 ####[facility] [facility] [place] [address], [facility] Prothrombin time (PT) Coag time (PPP) 16.7 s High 12.3-14.8 [facility] Comment on above: Order Comment: if not already doneNo: Do not add to previous draw Result Comment: ALL RESULTS MUST BE INTERPRETED WITH RESPECT TO BLOOD DRAWING ARTIFACTOR DILUTION ERROR OF ANTICOAGULANT AT THE TIME OF SAMPLING. Performed By: #### 5 6101, 14282 ####[facility] APTTon 05-14-2017 aPTT 33.2 s Normal 25.0-35.0 [facility] Comment on above: Order Comment: if [...] THIS PURPOSE. Performed By: #### 5 6101, 19280 ####[facility] BASIC METABOLIC PANELon Calcium 8.9 mg/dL Normal 8.6-10.3 [facility] Comment on above: Order Comment: No: Do not add to previou s draw Performed By: #### 1 0070, 26407, 80841 ####[facility] [place] [address], [facility] Chloride 103 mmol/L Normal 98-107 [facility] Comment on above: Order Comment: No: Do not add to previou s draw Performed By: #### 1 0070, 83155, 64583 ####[facility] [place] [address], [facility] CO2 26 mmol/L Normal 21-31 [facility] Comment on above: Order Comment: No: Do not add to previou s draw Performed By: #### 1 0070, 47013, 86660 ####[facility] [place] [address], [facility] Creatinine 1.42 mg/dL High 0.70-1.30 [facility] Comment on above: Order Comment: No: Do not add to previou s draw Performed By: #### 1 0070, 90238, 02297 ####[facility] [place] [address], [facility] eGFR (black) 59 ml/min/1.73sq m Abnormal >60 [facility] Comment on above: Order Comment: No: Do not add to previou s draw Result Comment: Calc ulation may not be valid for patients over 70 years Performed By: #### 1 0070, 30302, 80265 ####[facility] [place] [address], [facility] eGFR (non-black) 49 ml/min/1.73sq m Abnormal >60 [facility] Comment on above: Order Comment: No: Do not add to previou s draw Result Comment: Calc ulation may not be valid for patients over 70 years Performed By: #### 1 0070, 28966, 35366 ####[facility] [place] [address], [facility] Glucose mass conc 74 mg/dL Normal 70-100 [facility] Comment on above: Order Comment: No: Do not add to previou s draw Performed By: #### 1 0, 40403, 18965 ####[facility] [place] [address], [place] Potassium molar conc 4.3 mmol/L Normal 3.5-5.1 [facility] Comment on above: Order Comment: No: Do not add to previou s draw Performed By: #### 1 0070, 21413, 36539 ####[facility] [place] [address], [place] Sodium 136 mmol/L Normal 136-145 [facility] Comment on above: Order Comment: No: Do not add to previou s draw Performed By: #### 1 0070, 40635, 69970 ####[facility] [place] [address], [facility] Urea nitrogen 24 mg/dL Normal 7-25 [facility] Comment on above: Order Comment: No: Do not add to previou s draw Performed By: #### 1 0070, 23714, 99180 ####[facility] CBC COMPLETE BLOOD COUNTon 0 05-14-2017 Erythrocyte distribution width Auto Ratio (RBC) 14.9 % Normal 11.5-16.9 [facility] Comment on above: Order Comment: No: Do not add to previou s draw Performed By: #### 5 0608 ####[facility] Erythrocytes (RBC) 4.51 mill/mm3 Normal 4.30-5.90 [facility] Comment on above: Order Comment: No: Do not add to previou s draw Performed By: #### 5 0608 ####[facility] [place] [address], [facility] Hematocrit (HCT) 39.1 % Normal 39.0-55.0 [facility] Comment on above: Order Comment: No: Do not add to previou s draw Performed By: #### 5 0608 ####[facility] [place] [address], [facility] Hemoglobin mass conc (Bld) 12.6 g/dL Low 13.9-16.3 [facility] Comment on above: Order Comment: No: Do not add to previou s draw Performed By: #### 5 0608 ####[facility] [place] [address], [facility] MCH 28.0 pg Normal 24.0-32.0 [facility] Comment on above: Order Comment: No: Do not add to previou s draw Performed By: #### 5 0608 ####[facility] MCHC mass conc (RBC) 32.3 g/dL Normal 32.0-36.0 [facility] Comment on above: Order Comment: No: Do not add to previou s draw Performed By: #### 5 0608 ####[facility] MCV 86.9 fL Normal 80.0-100.0 [facility] Comment on above: Order Comment: No: Do not add to previou s draw Performed By: #### 5 0608 ####[facility], [place] [address] [place] [address] PLAT CNT 210 Thou/mm3 Normal 100-400 [facility] Comment on above: Order Comment: No: Do not add to previou s draw Performed By: #### 5 0608 ####[facility] WBC (Leukocytes) 6.3 Thou/mm3 Normal 4.0-10.0 [facility] Comment on above: Order Comment: No: Do not add to previou s draw Performed By: #### 5 0608 ####[facility] MAGNESIUM BLOODon 05-14-2017 Magnesium 2.1 mg/dL Normal 1.9-2.7 [facility] Comment on above: Order Comment: No: Do not add to previou s draw Performed By: #### 1 0070, 15011, 89355 ####[facility] [place] [address], [facility] PHOSPHORUS BLOODon 7 Phosphate 2.9 mg/dL Normal 2.5-5.0 [facility] Comment on above: Order Comment: No: Do not add to previou s draw Performed By: #### 1 0070, 14953, 36759 ####[facility] PROTHROMBIN TIMEon 7 INR Coag RelTime (PPP) 1.52 {INR} High 0.91-1.16 [facility] Comment on above: Order Comment: No: [...] OF ACTION, CLINICALEFFECTIVENESS, AND OPTIMAL THERAPEUTIC RANGE. [id number];108:231S-246S. Performed By: #### 5 6101 ####[facility] [facility].[address] Prothrombin time (PT) Coag time (PPP) 18.5 s High 12.3-14.8 [facility] Comment on above: Order Comment: No: Do not add to previou s draw Result Comment: ALL RESULTS MUST BE INTERPRETED WITH RESPECT TO BLOOD DRAWING ARTIFACTOR DILUTION ERROR OF ANTICOAGULANT AT THE TIME OF SAMPLING. Performed By: #### 5 6101 ####[facility] [facility].[address] INR Coag RelTime (PPP) 1.58 {INR} High 0.91-1.16 [facility] Comment on above: Order Comment: if [...] OF ACTION, CLINICALEFFECTIVENESS, AND OPTIMAL THERAPEUTIC RANGE. [id number];108:231S-246S. Performed By: #### 5 6101, 74099 ####[place] [address] Prothrombin time (PT) Coag time (PPP) 19.1 s High 12.3-14.8 [facility] Comment on above: Order Comment: if not already doneNo: Do not add to previous draw Result Comment: ALL RESULTS MUST BE INTERPRETED WITH RESPECT TO BLOOD DRAWING ARTIFACTOR DILUTION ERROR OF ANTICOAGULANT AT THE TIME OF SAMPLING. Performed By: #### [id number] ####[place] [id number] Encounters Encounter Date Encounter Type Care Provider Facility Start: 02-21-2025 ambulatory Facility:Aicha Flaherty Start: 02-06-2025 End: 02-06-2025 ambulatory [facility] Start: 01-31-2025 ambulatory [facility] Start: 01-06-2025 ambulatory [facility] Start: 12-27-2024 End: 12-27-2024 ambulatory [facility] Start: 08-22-2024 End: 08-22-2024 ambulatory [facility] Start: 06-28-2024 End: 06-28-2024 ambulatory [facility] Start: 06-03-2024 End: 06-03-2024 ambulatory [facility] Start: 04-13-2024 End: 04-13-2024 ambulatory [facility] Start: 02-19-2024 End: 02-19-2024 ambulatory [facility] Start: 01-05-2023 End: 02-04-2023 ambulatory GONSALEZ H FAWWAD Facility:[facility] Start: 12-08-2022 End: 01-02-2023 ambulatory GONSALEZ H FAWWAD Facility:[facility] Start: 11-05-2022 End: 12-05-2022 ambulatory GONSALEZ H FAWWAD Facility:[facility] Start: 10-08-2022 End: 11-05-2022 ambulatory GONSALEZ H FAWWAD Facility:[facility] Start: 09-08-2022 End: 10-08-2022 ambulatory GONSALEZ H FAWWAD Facility:[facility]1 Start: 08-26-2022 End: 08-26-2022 Patient encounter procedure DOMINGO MEJIA [facility] Start: 08-25-2022 End: 08-26-[address] CHARLIE STARK . Facility:[facility] Start: 08-07-2022 End: 09-07-2022 ambulatory GONSALEZ H FAWWAD Facility:[facility] Start: 07-08-2022 End: 08-06-2022 ambulatory GONSALEZ H FAWWAD Facility:[facility] Start: 07-01-2022 End: 07-01-2022 ambulatory REGGIE SMART Facility:[facility] Start: 06-08-2022 End: 07-07-2022 ambulatory SHAIKH Jason FAYE Facility:[facility] Start: 05-08-2022 End: 06-07-2022 ambulatory SHAIKH Jason PIÑAD Facility:[facility] Start: 05-06-2022 End: 05-07-2022 ambulatory REGGIE SMART Facility:[facility] Start: 04-16-2022 End: 04-17-2022 ambulatory REGGIE SMART Facility:[facility] Start: 04-07-2022 End: 05-07-2022 ambulatory SHAIKH Jason FAYE Facility:[facility] Start: 03-07-2022 End: 04-04-2022 ambulatory SHAIKH Jason FAYE Facility:[facility] Start: 06-10-2017 End: 06-12-2017 Ambulatory TIGIST HUANG Facility:[facility] Start: 06-04-2017 End: 06-13-2017 Ambulatory PROVIDER UNKNOWN Facility:[facility] Start: 06-02-2017 End: 06-03-2017 Ambulatory DEFAULT PHYSICIAN Facility:[facility] Start: 05-14-2017 End: 05-16-2017 Evaluation and management of inpatient DORCAS CHIN Facility:[facility] Procedures Date Procedure Procedure Detail Performing Clinician Start: 08-25-2022 PSA screening GONSALEZJason MEI Comment on above: Performed By: #### P SAD #### [facility] [address] [place] [address] Dr. Wili Cardona Start: 05-15-2017 REVISION OF CARDIAC LEAD IN HEART, PERCUTANEOUS APPROACH DORCAS CHIN Start: 05-14-2017 INSERT PACE. DUAL CH AM IN CHEST SUBCU/FASCIA, OPEN ARIANA KAR Start: 05-14-2017 INSERTION OF PACEMAK ER LEAD INTO R VENTRICLE, PERC APPROACH ARIANA KAR Start: 05-14-2017 INSERTION OF PACEMAK ER LEAD INTO RIGHT ATRIUM, PERC APPROACH ARIANA KAR Start: 03-12-2016 Transurethral prostatectomy DOMINGO MEJIA Start: 02-08-2016 Cystourethroscopy wi th dilation of urethral stricture DOMINGO MEJIA Start: 07-06-2013 Laser ablation of prostate DOMINGO MEJIA Amputation of finger , except thumb DOMINGO MEJIA Comment on above: Rt. hand pinkwendy levye r Cataract surgery DOMINGO MARTINEZ RRY Circumcision DOMINGO MEJIA Colonoscopy DOMINGO MEJIA Implantation of card iac pacemaker DOMINGO MEJIA Placement of stent i n cardiac conduit DOMINGO MEJIA Procedure on back DOMINGO FARAH Procedure on knee DOMINGO FARAH Tonsillectomy and adenoidectomy DOMINGO MEJIA Payers Date Payer Category Payer Medicare [id number] 1961 Private Health Insurance [id number] 1945 Unknown [id number] 2.16.84 [id number] 1945 Unknown [id number] 2.16.84 [id number] 1945 Unknown [id number] 2.16.84 0.1.147811.3.579.2.593 1945 Unknown [id number] 2.16.84 0.1.004250.3.579.2.593 1943 Unknown [id number] 2.16.84 0.1.666335.3.579.2.593 1943 Unknown [id number] 2.16.84 0.1.128112.3.579.2.593 1943 Unknown [id number] 2.16.84 0.1.836266.3.579.2.593 1943 Unknown [id number] 2.16.84 0.1.151405.3.579.2.593 1943 Unknown [id number] 2.16.84 0.1.919662.3.579.2.593 1943 Unknown [id number] 2.16.84 0.1.010602.3.579.2.593 1943 Unknown [id number] 2.16.84 0.1.001036.3.579.2.593 1943 Unknown [id number] 2.16.84 0.1.521375.3.579.2.593 1943 Unknown [id number] 2.16.84 0.1.374471.3.579.2.593 1943 Unknown [id number] 2.16.84 0.1.773363.3.579.2.593 1943 Unknown [id number] 2.16.84 [id number] Medicare [id number] Unknown Social History Date Type Detail Facility Start: 08-26-2022 Tobacco smoking status Ex-smoker (fi nding) [facility] Tobacco smoking status Never [facility] Sex Assigned At Male [facility] Functional Status Date Assessment Result Facility 08-26-2022 Functional Status N/A [facility] Progress note 02-06-2025 Note Date & Type Note Facility 02-06-2025 Note [facility] Subjective Dylon Francis is a 79 y.o. year old male patient being seen for 6 mo follow up with ECHO. Patient states he feels great> patient states he has no cardiac complaints. Patient Active Problem List Diagnosis Anticoagulated Benign [...] Paroxysmal atrial fibrillation (CMS/HCC) Peripheral vascular disease Poor urinary stream Weak urine stream Primary hypertension Stage 3 chronic kidney disease (CMS/HCC) Swelling of lower leg Type 2 diabetes mellitus without complication (CMS/HCC) Urge incontinence Urinary hesitancy Anemia Cardiac pacemaker in situ Daily use of moist tobacco Diabetes mellitus ([facility]/HCC) History of deep venous thrombosis Osteoarthritis Pulmonary embolism (CMS/HCC) Sleep apnea Vitamin D deficiency Irritable bowel syndrome Persistent insomnia Pure hypercholesterolemia Sensorineural hearing loss, bilateral Encounter for fitting and adjustment of hearing aid Family History Adopted: Yes Social History Tobacco Use Smoking status: Former Types: Cigarettes Smokeless tobacco: Never Substance Use Topics Alcohol use: Never Drug use: Never HPI Mr Francis is seen in follow up. He is a 79 yo man with history of coronary artery [...] placement in 2006. He was evaluated at [facility] and then at [facility] for thrombosed IVC filter and was told that conservative management is the best option. Previously he was admitted to [facility] with high grade AV block [...] he reports that he has been doing well. He denies chest pain. He has no shortness of breath on exertion. He has no leg edema. No dizziness or lightheadedness. He uses a cane to assist with ambulation. Review of Systems HENT: Positive for hearing loss. Hematologic/Lymphatic: Bruises/bleeds easily. Musculoskeletal: Positive for arthritis, joint pain and muscle weakness. Neurological: Positive for focal weakness, light-headedness, numbness and weakness. All other systems reviewed and are negative. Objective Visit Vitals BP 145/84 (BP Location: Left arm, Patient Position: Sitting) Pulse 76 Ht 1.778 m (5' 10 ) Wt 96.6 kg (213 lb) SpO2 98% BMI 30.56 kg/m??? Smoking Status Former BSA 2.18 m??? [...] no abdominal tenderness. Musculoskeletal: General: No swelling. Ce (more content not included)... [facility] Progress note 08-22-2024 Note Date & Type Note Facility 08-22-2024 Note [facility] Subjective Dylon Francis is a [...] placement in 2006. He was evaluated at [facility] and then at [facility] for thrombosed IVC filter and was told that conservative management is the best option. Previously he was admitted to [facility] with high grade AV block [...] Pulmonary effort is normal. No respiratory distress. Ness (more content not included)... [facility] Progress note 06-03-2024 Note Date & Type Note Facility 06-03-2024 Note [facility] Subjective Dylon Francis is a [...] to iatrogenic pulmonary embolism (CMS/HCC) IVC thrombosis ([facility]/HCC) BMI 40.0-44.9, adult ([facility]) Nocturia Obesity Morbid obesity ([facility]) Pain in both lower extremities Paroxysmal atrial fibrillation ([facility]/HCC) Peripheral vascular disease ([facility]/HCC) Poor urinary stream Weak urine stream Primary hypertension Stage 3 chronic kidney disease (CMS/HCC) Swelling of lower leg Type 2 diabetes mellitus without complication ([facility]/HCC) Urge incontinence Urinary hesitancy Anemia Cardiac pacemaker in situ Daily use of moist tobacco Diabetes mellitus ([facility]/HCC) History of deep venous thrombosis Osteoarthritis Pulmonary embolism ([facility]/HCC) Sleep apnea Vitamin D deficiency Irritable bowel [...] placement in 2006. He was evaluated at [facility] and then at [facility] for thrombosed IVC filter and was told that conservative management is the best option. Previously he was admitted to [facility] with high grade AV block [...] There is no distension. Palpations: Abdomen is (more content not included)... [facility] Progress note 04-13-2024 Note Date & Type Note Facility 04-13-2024 Note [facility] Subjective Dylon Francis is a [...] placement in 2006. He was evaluated at [facility] and then at [facility] for thrombosed IVC filter and was told that conservative management is the best option. Previously he was admitted to [facility] with high grade AV block [...] General: Bowel sounds (more content not included)... [facility] Progress note 02-19-2024 Note Date & Type Note Facility 02-19-2024 Note [facility] Subjective Dylon Francis is a [...] placement in 2006. He was evaluated at [facility] and then at [facility] for thrombosed IVC filter and was told that conservative management is the best option. Previously he was admitted to [facility] with high grade AV block [...] Judgment: Judgment normal (more content not included)... [facility] Discharge instructions 08-26-2022 Note Date [...] urethra. Follow these instructions at home: Take [id number]-ajl-rxaphti and prescription medicines only as told by [...] 08/24/2006 Document Revised: 07/19/2019 Document Reviewed: 09/28/2017 [employer] Patient Education 2020 [employer]. Follow Up Care 09/03/2021 12:26:25 With:JACKIE WELLS, DOMINGO Callahan, URL Address: [address] [place] [address] [phone] When: Unknown Comments:PRN [facility] Evaluation + Plan note Note Date & Type Note Facility Evaluation + Plan note No data available for this section [facility] Progress note Note Date & Type Note Facility Progress note No data available for this section [facility] Summary Purpose Family History No Family [...] section and content) DATE CREATED AUTHOR 03/02/2018 [facility] DATE CREATED AUTHOR AUTHOR'S ORGANIZ ATION 02/13/2023 [facility] DATE CREATED AUTHOR AUTHOR'S ORGANIZ ATION 02/07/2025 [facility] DATE CREATED AUTHOR AUTHOR'S ORGANIZ ATION 02/23/2025 [facility] Patient Care team informatio n (unrecognized section and content) Personnel Name: Charlie Stark MD Address: Address: [address] [place] [id number] FOR RECORDS PERTAINING TO PATIENTS WHO [...] BE BASED ON THE PRIMARY CLINICAL RECORDS. [facility] [employer] [facility]. provides no warranty or guarantee of the accuracy or completeness of information in this document.
[2025-02-25 07:34] LABS: Basophils Absolute Auto 0.1 10^3/uL (0.0-0.1); Eosinophils Absolute Auto 0.1 10^3/uL (0.0-0.7); Eosinophils Percent Auto 1.8 % (0.9-7.0); Hematocrit 43.2 % (42.0-54.0); Hemoglobin 14.1 g/dL (14.0-18.0); Immature Granulocytes Abs Auto 0.03 10^3/uL (0.00-0.03); Immature Granulocytes Pct Auto 0.4 % (0.0-0.5); Lymphocytes Absolute Auto 1.9 10^3/uL (1.2-3.8); Lymphocytes Percent Auto 28.2 % (20.5-60.0); Mean Corpuscular HGB Conc 32.6 g/dL (29.9-35.2); Mean Corpuscular Volume 91.9 fL (80.0-94.0); Mean Platelet Volume 9.4 fL (9.5-13.5); Monocytes Absolute Auto 0.5 10^3/uL (0.3-0.8); Monocytes Percent Auto 8.1 % (1.7-12.0); Neutrophils Absolute Auto 4.1 10^3/uL (1.4-6.5); Neutrophils Percent Auto 60.5 % (43.0-75.0); Platelet Count 193 10^3/uL (150-450); Red Cell Distribution Width 13.2 % (11.0-15.0); White Blood Count 6.7 10^3/uL (4.0-11.0)
[2025-02-25 08:01] LABS: Alanine Aminotransferase 21 U/L (16-63); Albumin Globulin Ratio 1.2; Albumin Level 3.4 g/dL (3.4-5.0); Alkaline Phosphatase 91 U/L (46-116); Anion Gap 10.4; Aspartate Amino Transferase 19 U/L (15-37); BUN Creatinine Ratio 23.2; Bilirubin Total 0.5 mg/dL (0.2-1.0); Calcium 8.6 mg/dL (8.5-10.1); Carbon Dioxide 33.4 mmol/L (21.0-32.0); Chloride 100 mmol/L (98-107); Chol HDL Ratio 2.4; Cholesterol 148 mg/dL (<=200); Estimated GFR (African America >60 (>=60 mL/min/1.73m^2); Estimated GFR (Non-African Ame >60 (>=60 mL/min/1.73m^2); Free T3 2.06 pg/mL (2.18-3.98); Globulin 2.8 g/dL; Glucose 79 mg/dL (74-106); HDL Cholesterol 62 mg/dL (40-60); Potassium 4.8 mmol/L (3.5-5.1); Sodium 139 mmol/L (136-145); Thyroid Stimulating Hormone 2.758 uIU/mL (0.358-3.740); Total Protein 6.2 g/dL (6.4-8.2); Triglycerides 52 mg/dL (<=150); Uric Acid 3.4 mg/dL (3.5-7.2); VLDL CHOLESTEROL 10.4 mg/dL
[2025-02-25 08:41] LABS: Prostate Specific Antigen Scrn 0.18 ng/mL (<=4.00)
[2025-02-25 08:55] LABS: Estimated Average Glucose 123 mg/dL; Glycohemoglobin A1C 5.9 % (4.5-6.2)
[2025-02-26 11:09] LABS: Insulin 3.3 uIU/mL (2.6-24.9)
== END 2025-02-25 07:04 | disposition home or self-care (01) ==
LOC: LAB 07:04
PROVIDERS: PCP Family Medicine; Visit Provider Family Medicine
DX: R53.83 Other fatigue (principal); E11.40 Type 2 diabetes mellitus with diabetic neuropathy, unspecified; I49.3 Ventricular premature depolarization; I50.30 Unspecified diastolic (congestive) heart failure; G47.33 Obstructive sleep apnea (adult) (pediatric); D22.9 Melanocytic nevi, unspecified; E78.5 Hyperlipidemia, unspecified; Z12.12 Encounter for screening for malignant neoplasm of rectum; Z12.5 Encounter for screening for malignant neoplasm of prostate; I11.0 Hypertensive heart disease with heart failure
CPT/HCPCS: 36415; 80053; 80061; 83036; 83525; 83880; 84436; 84443; 84481; 84550; 85025; G0103

== ENCOUNTER 2025-02-26 08:00 | Outpatient (REF) | payer MEDICARE, OTHER, SELFPAY ==
--- OUTSIDE RECORDS SUMMARY | 2025-02-27 10:23 | XMS_ITS | Clinical Summary ---
Author Organization [facility] Address [address] [place] [address] Care Team Providers Care Television Production Assistant Name Role Phone John Stark MD Primary Care Provider Allergies Active Allergy Reactions Criticality Noted Date Comments Celecoxib Itching 08/25/2014 Ebagiwn-Iik-Ilh Reductase Inhibitors Other,Rash Low 08/25/2014 Medications amitriptyline (Elavil) 25 mg tablet Take 1 tablet every day by oral route. Active aspirin 81 mg EC tablet in the morning. Acti ve ferrous sulfate 325 (65 Fe) MG tablet every 12 (twelve) hours. Active nitroglycerin (Nitrostat) 0.4 mg SL tablet nitroglycerin 0.[address] 1 TABLET (0.4 MG) BY SUBLINGUAL ROUTE AT 1ST SIGN OF ATTACK; MAY REPEAT EVERY 5 MINUTES UP TO 3 TABS; IF NO RELIEF SEEK MEDICAL HELP 06/01/20 17 Active omeprazole (PriLOSEC) [address] capsule omeprazole 40 mg capsule,delayed release TAKE 1 CAPSULE BY MOUTH EVERY DAY 06/13/20 20 Active temazepam (Restoril) 30 mg capsule TAKE 1 CAPSULE BY MOUTH EVERY NIGHT 10/01/19 23 Active warfarin (Coumadin) 5 mg tablet warfarin 5 mg tablet TAKE DAILY DIRECTED BY COUMADIN CLINIC 08/26/20 22 Active cholecalciferol, vitamin D3, 50 mcg (2,000 unit) capsule Take 1 capsule every day by oral route. Active dapagliflozin propanediol (Farxiga) 10 mgIndications:Chr onic systolic heart failure (CMS/HCC) Take 1 tablet (10 mg) by mouth in the morning. 90 tablet 3 04/13/20 24 025 Active Additional Information Patient not taking.Reported on 02/06/2025 spironolactone (Aldactone) 25 mg tabletIndications :Chronic systolic heart failure (CMS/HCC) Take 0.5 tablets (12.5 mg) by mouth in the morning. 45 tablet 3 04/13/20 24 025 Active sacubitril-valsar donato (Entresto) 24-26 mg tabletIndications :Chronic systolic heart failure (CMS/HCC) Take 1 tablet by mouth two times daily. 180 tablet 3 04/13/20 24 025 Active sacubitril-valsar donato (Entresto) 24-26 mg tabletIndications :Acute combined systolic and diastolic heart failure (CMS/HCC) Take 1 tablet by mouth two times daily. 180 tablet 3 04/18/20 24 025 Active Additional Information Patient not taking.Reported on 02/06/2025 carvedilol (Coreg) 6.25 mg tabletIndications :Chronic systolic heart failure (CMS/HCC) Take 3 tablets (18.75 mg) by mouth with breakfast and with evening meal. 540 tablet 3 06/28/20 24 025 Active isosorbide mononitrate ER (Imdur) 30 mg 24 hr tabletIndications :Chest pain, unspecified type TAKE 1 TABLET BY MOUTH ONE TIME A DAY 90 tablet 3 06/28/20 24 Active Additional Information Patient taking differently: 30 mg oral Daily, (No instructions reported), Reported on 08/22/2024 inclisiran (Leqvio) 284 mg/1.5 mL syringeIndication s:Mixed hyperlipidemia Inject 1.5 mL (284 mg) under the skin every 6 (six) months. (Inject 1.5mL in Oct 2024 and again in Apr 2025.) 2 mL 09/08/19 25 Active insulin aspart (NovoLOG) 100 unit/mL injection vial Inject 100 Units under the skin with breakfast, with lunch, and with evening meal. 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 90 tablet 3 02/07/20 25 026 Active ezetimibe (Zetia) 10 mg tabletIndications :Other hyperlipidemia Take 1 tablet (10 mg) by mouth in the morning. 90 tablet 3 02/22/20 24 025 Discontin ued(Reord er) Active Problems Problem Noted Date Diagnosed Date [...] & Plan (10/22/2022 1:30 PM EST): - [id number] (age, hypertension, history of DVT, CHF) [...] Encounters Date Type Department Care Team Description 02/06/2025 2:00 PM EDT Office Visit [address] [id number] Pacheco Hopson MD Heart failure with improved ejection fraction (HFimpEF) (CMS/HCC) (Primary Dx); Paroxysmal atrial fibrillation (CMS/HCC); Primary hypertension; Mixed hyperlipidemia; Coronary artery disease of [place] artery of [place] heart with stable angina pectoris; History of coronary artery stent placement; IVC thrombosis (CMS/HCC); History of deep venous thrombosis; Hx pulmonary embolism; Cardiac pacemaker in situ; Chronic systolic heart failure (CMS/HCC) 01/20/2025 2:30 PM EDT Ancillary Procedure [facility] [address] [place] [phone] Adjustment and management of cardiac pacemaker 01/20/2025 Orders Only [facility] [address] [place] [address] Aaron Doan MD 12/27/2024 1:30 PM EDT Ancillary Procedure [facility] [address] [place] [address] Encounter for implantable defibrillator reprogramming or check from Last 3 Months Family History * Patient is adopted Relation Name Status Comments Father Mother Social History Tobacco Use Types Packs/Day Years [...] at Not on file Legal Sex Male 10:00 PM EDT Gender Identity Not on file Sexual Orientation Not on file Last Filed Vital Signs Vital Sign Reading Time Taken Comments Blood Pressure 145/84 02/06/2025 2:16 PM EDT Pulse 76 02/06/2025 2:16 PM EDT Temperature - - Respiratory Rate - - Oxygen Saturation 98% 02/06/2025 2:16 PM EDT Inhaled Oxygen Concentration - - Weight 96.6 kg (213 lb) 02/06/2025 2:16 PM EDT Height 177.8 cm (5' 10 ) 02/06/2025 2:16 PM EDT Body Mass Index 30.56 02/06/2025 2:16 PM EDT Plan of Treatment Health Maintenance Due Date Last Done Comments Diabetes: Hemoglobin A1C 1945 Medicare Annual Wellness (AWV) 1945 Diabetes: Retinopathy Screening 12/09/1953 Depression Screening 1955 Diabetes: Urine Protein Screening 12/09/1962 Fall Risk Screening 12/09/2008 Pneumococcal Vaccine: 50+ Years (2 of 2 - PPSV23, PCV20, or PCV21) 02/06/2016 12/12/2015, 08/27/2001 COVID-19 Vaccine ( season) [...] CARDIAC DEVICE CHECK CHECK - REMOTE Routine 01/31/2025 12:55 PM EDT Adjustment and management of cardiac pacemaker CARDIAC DEVICE CHECK - REMOTE - PACEMAKER Routine 01/20/2025 12:00 AM EDT CARDIAC DEVICE CHECK CHECK - REMOTE Routine 01/06/2025 11:35 AM EDT Adjustment and management of cardiac pacemaker CARDIAC DEVICE CHECK - IN CLINIC - PACEMAKER DUAL CHAMBER W/ PROG Routine 01/05/2025 11:53 AM EDT Encounter for implantable defibrillator reprogramming or check from Last 3 Months Results * CARDIAC DEVICE CHECK - REMOTE - PACEMAKER (01/31/2025 12:55 PM EDT) Only the most recent of2 resultswithin the time period is included. us Aaron Doan MD CV IMPLANTABLE CARDIAC DEVICE [place] OCEDURES Final Result CPACS * Cardiac device check - Remote pacemaker (01/20/2025 12:00 AM EDT) Anatomical Region Laterality Modality Other 01/20/2025 Aaron Doan MD CV IMPLANTABLE CARDIAC DEVICE [place] OCEDURES Final Result * CARDIAC DEVICE CHECK - IN CLINIC [...] attached note Aaron Doan MD CV IMPLANTABLE CARDIAC DEVICE [place] OCEDURES Final Result from Last 3 Months [place] [id number] [place] [address] Care Teams Television Production Assistant Relationship Specialty Start Date End Date John Stark MD [address] [place] [address] PCP - General 10/22/22
--- OUTSIDE RECORDS SUMMARY | 2025-02-27 10:23 | XMS_ITS | Clinical Summary ---
Author Organization [facility] Address [facility][id number] [address] [place] [address] Care Team Providers Care Dietetics Director Name Role Phone Unavailable Primary Care [...]
--- OUTSIDE RECORDS SUMMARY | 2025-02-27 10:23 | XMS_ITS | Clinical Summary ---
Author Organization [facility] Address [address] [place] [address] Care Team Providers Care Wall Mirror Department Supervisor Name Role Phone John Stark MD Primary Care Provider [phone] Allergies Active Allergy Reactions Criticality Noted Date Comments Puyzcgu-Hbl-Xjy Reductase Inhibitors Rash 10/17/2016 Medications aspirin, enteric [...] file Group ID:Not on file Type:Medicare Address: [facility] [address] MEDICARE RAILROAD Care Teams Wall Mirror Department Supervisor Relationship Specialty Start Date End Date John Stark MD PCP - General Family Medicine 09/22/16
--- OUTSIDE RECORDS SUMMARY | 2025-02-27 10:23 | XMS_ITS | Referral Summary ---
Author Organization [facility] Address [address] [place] [id number] Care Team Providers Care Tuber Helper Name Role Phone John Stark MD Primary Care Provider [phone] Encounters Date Type Department Care Team Description 02/06/2025 2:00 PM EDT Office Visit [address] [address] Pacheco Hopson MD Heart failure with improved ejection fraction (HFimpEF) (CMS/HCC) (Primary Dx); Paroxysmal atrial fibrillation (CMS/HCC); Primary hypertension; Mixed hyperlipidemia; Coronary artery disease of [place] artery of [place] heart with stable angina pectoris; History of coronary artery stent placement; IVC thrombosis (CMS/HCC); History of deep venous thrombosis; Hx pulmonary embolism; Cardiac pacemaker in situ; Chronic systolic heart failure (CMS/HCC) 01/20/[address] [facility] [address] [place] [phone] Aaron Doan MD 01/20/2025 2:30 PM EDT Ancillary Procedure 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 Aaron Doan MD CV IMPLANTABLE CARDIAC DEVICE [place] OCEDURES Final Result CPACS * Cardiac device check - Remote pacemaker (01/20/2025 12:00 AM EDT) Anatomical Region Laterality Modality Other 01/20/2025 Aaron Doan MD CV IMPLANTABLE CARDIAC DEVICE [place] OCEDURES Final Result * CARDIAC DEVICE CHECK [...] Aaron Doan MD CV IMPLANTABLE CARDIAC DEVICE [place] OCEDURES Final Result from Last 3 [place] [id number] [facility] Care Teams Tuber Helper Relationship Specialty Start Date End Date John Stark MD [address] [facility] [place] [address] PCP - General 10/22/22
[2025-02-27 11:03] LABS: Internal Control Within Normal Limits; Occult Blood Positive
== END 2025-02-26 08:01 | disposition home or self-care (01) ==
LOC: LAB 08:00
PROVIDERS: PCP Family Medicine; Visit Provider Family Medicine
DX: R53.83 Other fatigue (principal); E11.40 Type 2 diabetes mellitus with diabetic neuropathy, unspecified; I49.3 Ventricular premature depolarization; I50.30 Unspecified diastolic (congestive) heart failure; G47.33 Obstructive sleep apnea (adult) (pediatric); E78.5 Hyperlipidemia, unspecified; Z12.12 Encounter for screening for malignant neoplasm of rectum; D22.9 Melanocytic nevi, unspecified; Z12.5 Encounter for screening for malignant neoplasm of prostate; I11.0 Hypertensive heart disease with heart failure
CPT/HCPCS: G0328

== ENCOUNTER 2025-03-07 02:38 | Outpatient (RCR) | payer MEDICARE, OTHER, SELFPAY | END 2025-04-06 16:37 | disposition home or self-care (01) | LOC: MM 02:38 | PROVIDERS: PCP Family Medicine; Visit Provider Family Medicine | DX: Z51.81 Encounter for therapeutic drug level monitoring (principal); Z79.01 Long term (current) use of anticoagulants | CPT/HCPCS: 85610; G0463 ==

== ENCOUNTER 2025-03-09 07:52 | Outpatient (RCR) | payer MEDICARE, OTHER, SELFPAY ==
[2025-03-09 13:11] VITALS: BP 153/88; PULSE 73; TEMP 36.3; O2SAT 95
[2025-03-09] MEDS: INCLISIRAN SODIUM 284 MG/1.5 ML SYRINGE SQ (13:16)
== END 2025-04-06 23:59 | disposition home or self-care (01) ==
LOC: INF 07:52
PROVIDERS: PCP Family Medicine; Visit Provider Nurse Practitioner Family
DX: I25.10 Atherosclerotic heart disease of native coronary artery without angina pectoris (principal); E78.5 Hyperlipidemia, unspecified
CPT/HCPCS: 96372; J1306

== ENCOUNTER 2025-04-07 00:42 | Outpatient (RCR) | payer MEDICARE, OTHER, SELFPAY | END 2025-05-04 12:36 | disposition home or self-care (01) | LOC: MM 00:42 | PROVIDERS: PCP Family Medicine; Visit Provider Family Medicine | DX: Z51.81 Encounter for therapeutic drug level monitoring (principal); Z79.01 Long term (current) use of anticoagulants; I82.499 Acute embolism and thrombosis of other specified deep vein of unspecified lower extremity | CPT/HCPCS: 85610; G0463 ==

== ENCOUNTER 2025-04-25 12:45 | Outpatient (OUT) | payer MEDICARE, OTHER, SELFPAY ==
--- OUTSIDE RECORDS SUMMARY | 2024-05-24 08:30 | XMS_ITS | Encounter Summary ---
Author Name [facility] ([place] Organization [facility] [place] Address [address] [place] [id number] Care Team Providers Care Fitness Studies Teacher Name Role Phone DENNIS JOSHI Primary Care Provider Unavail able Insurance Providers: All historical and current Section Date Range: From patient's date of to the date document was created. This section includes the names of all active insurance providers for the patient. Insurance Provider Type of Coverage Plan Name Start of Policy Coverage End of Policy Coverage Group Number Member ID Insurance Provider's Telephone Number Policy Romo's Name Patient's Relationship to Policy Romo MEDICARE (WNR) MEDICARE (M) PART B Jun 07, 2001 PART B [id number] [place] TERI PATIENT MEDICARE (WNR) MEDICARE (M) PART A Jun 07, 2001 PART A [id number] [place] PATIENT MEDICARE (WNR) MEDICARE (M) PART B Jun 07, 2001 PART B [id number] [place]AN[place] PATIENT MEDICARE (WNR) MEDICARE (M) PART A January 05, 1999 PART A [id number] [place] PATIENT [facility] RETIREE RAILR OAD EMP NATL Sep 07, 2018 [id number] [place] FRANCIS PATIENT Selected Encounter This section includes the information on record at [place] for the Encounter. Date/Time Encounter Type Encounter Description Reason Provider Source May 24, 2024 12:30 PM HEARING AID EXAM BOTH EARS AUDIOLOGY ICD-10-CM H90.3 Sensorineural hearing loss, bilateral MICHELE GARZA IHE Encounter Template Text not used by [facility] Assessments - Encounter Diagnoses This section includes the primary and secondary diagnoses documented for the Encounter. Date/Time Primary/Secondary Diagnosis Diagnosis Name Provider Source May 24, 2024 01:37 PM PRIMARY Sensorineural hearing loss, bilateral [facility] May 24, 2024 01:37 PM SECONDARY Encounter for fitting and adjustment of hearing aid [facility] May 24, 2024 01:37 PM SECONDARY Tinnitus, bilateral [facility] Plan of Treatment: Future Appointments (+ 6 months) and Future Tests (+/- 45 days) The Plan of Treatment section includes future care activities for the patient [facility]. This section includes future appointments and future orders which are active, pending or scheduled. Future Appointments This section includes appointments that were scheduled to occur 6 months from the date of the Encounter, up to a maximum of 20 appointments. The data comes from all [place] treatment facilities. Appointment Date/Time Appointment Type Appointme nt Facility Name May 31, 2024 01:30 PM AMBULATORY - NONE [facility] Jul 28, 2024 11:30 AM AMBULATORY [facility] Active, Pending, and Scheduled Orders This section includes a listing of several types of active, pending, and scheduled orders, including clinic medications orders, diagnostic test orders, procedure orders and consult orders; where the start date of the order is 45 days before the date of the Encounter or 45 days after the date of theEncounter. The data comes from all [place] treatment [facility]. Test Date/Time Test Type Test Details Facility Name May 05, 2024 12:00 AM Laboratory - Chemi stry Order MICROALBUMIN/CREATININ E RATIO PANEL URINE, RANDOM SP ONCE [facility] Lab Results: +/- 30 days of the encounter This section includes the Chemistry and Hematology Lab Results on record with [place] for the patient. Radiology Reports and Pathology Reports are provided separately, in subsequent sections. Lab Results This section contains the Chemistry/Hematology Results that were resulted 30 days before or 30 daysafter the date of the Encounter. Date/Time Source Result Type Result - Unit Interpretation Reference Range Specimen Type Comment May 24, 2024 01:36 PM [facility] HEMOGLOBIN A1C BLOOD Specimen Type: BLOOD Comment: Values obtained from A1C measurements can vary. For typical A1C assays, a reported value of 7.0 could actually be between 6.72 and 7.28 if measured by a reference method. A reported value of 9.0 could actually be between 8.73 and 9.27. Ref: http://www.[email or web address] org/CAPdata.asp Ordering Provider: DALLIN SAMAYOA Report Released Date/Time: Jun 05, 2023 02:30 PM Reporting Lab: [address] [address] Performing Lab: [address] [address] HEMOGLOBIN A1C 6.1 H 3.6-5.7 May 24, 2024 01:36 PM [facility] LIPID PROFILE PLASMA Specimen Type: PLASMA Comment: LDL REF RANGE: OPTIMAL: <100 mg/dL BORDERLINE HIGH: 130-159 mg/dL LDL HIGH: 160-189 mg/dL VERY HIGH: >=190 TRIG REF RANGE: NORMAL <150 mg/dL BORDERLINE HIGH: 150-199 mg/dL TRIG HIGH: 200-499 mg/dL VERY HIGH: >=500 mg/dL CREA eGFR was calculated using the CKD-EPI 2020 equation. Ordering Provider: DALLIN SAMAYOA Report Released Date/Time: Jun 05, 2023 02:30 PM Reporting Lab: [address] [address] Performing Lab: [address] [address] CHOLESTEROL 146 mg/dL 0-200 LDL CHOLESTEROL 80 mg/dL 0-100 HDL CHOLESTEROL 51 mg/dL 40-60 TRIGLYCERIDE 113 mg/dL 0-150 May 24, 2024 01:36 PM [facility] FERRITIN PLASMA Specimen Type: PLASMA No comment entered. Ordering Provider: DALLIN SAMAYOA Report Released Date/Time: Jun 05, 2023 02:30 PM Reporting Lab: [address] [address] Performing Lab: [address] [address] FERRITIN 984.3 ng/mL H 21.81-574.66 May 24, 2024 01:36 PM [facility] IRON GROUP SERUM Specimen Type: SERUM No comment entered. Ordering Provider: DALLIN SAMAYOA Report Released Date/Time: Jun 05, 2023 02:30 PM Reporting Lab: [address] [place] [id number] Performing Lab: [address] [id number] TIBC 174 ug/dL 265-400 IRON 73 ug/dL 50-170 TIBC% 42.0 May 24, 2024 01:36 PM [facility] MAGNESIUM PLASMA Specimen Type: PLASMA Comment: LDL REF RANGE: OPTIMAL: <100 mg/dL BORDERLINE HIGH: 130-159 mg/dL LDL HIGH: 160-189 mg/dL VERY HIGH: >=190 TRIG REF RANGE: NORMAL <150 mg/dL BORDERLINE HIGH: 150-199 mg/dL TRIG HIGH: 200-499 mg/dL VERY HIGH: >=500 mg/dL CREA eGFR was calculated using the CKD-EPI 2020 equation. Ordering Provider: DALLIN SAMAYOA Report Released Date/Time: Jun 05, 2023 02:30 PM Reporting Lab: [address] [address] Performing Lab: [place] [phone] MAGNESIUM 2.4 mg/dL 1.6-2.6 May 24, 2024 01:36 PM [facility] COMPREHENSIVE METABOLIC PANEL PLASMA S pecimen Type: PLASMA Comment: LDL REF RANGE: OPTIMAL: <100 mg/dL BORDERLINE HIGH: 130-159 mg/dL LDL HIGH: 160-189 mg/dL VERY HIGH: >=190 TRIG REF RANGE: NORMAL <150 mg/dL BORDERLINE HIGH: 150-199 mg/dL TRIG HIGH: 200-499 mg/dL VERY HIGH: >=500 mg/dL CREA eGFR was calculated using the CKD-EPI 2020 equation. Ordering Provider: DALLIN SAMAYOA Report Released Date/Time: Jun 05, 2023 02:30 PM Reporting Lab: [address] [address] Performing Lab: [place] [id number] ALBUMIN 4.1 g/dL 3.2-4.6 ALKALINE PHOSPHATASE 89 U/L 46-116 ALT/SGPT 15 U/L 0-55 AST/SGOT 23 U/L 5-34 BUN 25 mg/dL H 9-23 CALCIUM 9.5 mg/dL 8.5-10.1 CREATININE 1.4 mg/dL H 0.7-1.3 CO2 28 mmol/L 22-29 GLUCOSE 101 mg/dL H 74-100 PROTEIN, TOTAL 6.8 g/dL 6.4-8.3 SODIUM 137 mmol/L 136-145 CHLORIDE 102 mmol/L 98-107 BILIRUBIN, TOTAL 0.4 mg/dL 0.2-1.2 POTASSIUM 5.1 mmol/L 3.5-5.1 ANION GAP 12.0 mmol/L 10-20 EGFR (CALCULATED) 51.0 mL/min May 24, 2024 01:36 PM [facility] CBC BLOOD Specimen Type: BLOOD No comment entered. Ordering Provider: DALLIN SAMAYOA Report Released Date/Time: Jun 05, 2023 02:30 PM Reporting Lab: [address] [address] Performing Lab: [address] [address] WBC COUNT 6.2 10*3/uL 3.6-11.0 RBC COUNT 4.58 10*6/uL 4.47-5.83 HGB 13.9 g/dL 13.6-17.4 HCT 42.4 40.0-51.0 MCV 92.6 fL 80.0-96.0 MCH 30.4 pg 27.0-31.0 MCHC 32.9 g/dL 31.5-36.5 PLT 197 10*3/uL 150-400 LYMPHS % 29.3 21.0-51.0 MONOCYTES % 6.5 4.0-8.0 NUCLEATED RBC/100WBC 0.0 /100{WBCs} None Established-None Established RDW 13.8 11.2-15.8 NEUTROPHIL % 62.3 54.0-78.0 EOSINOPHIL % 1.2 0.0-3.0 BASOPHIL % 0.7 0.0-3.0 ABSOLUTE LYMPHOCYTE COUNT 1.8 10*3/uL 0. 8-5.0 ABSOLUTE NEUTROPHIL COUNT 3.9 10*3/uL 1. 9-8.6 ABSOLUTE BASOPHIL COUNT 0.0 10*3/uL 0.0- 0.3 ABSOLUTE MONOCYTE COUNT 0.4 10*3/uL 0.1- 0.9 ABSOLUTE EOSINOPHIL COUNT 0.1 10*3/uL 0. 0-0.3 MPV 8.8 fL 7.4-11.4 Social History: Smoking Status (Most current) and Tobacco Use (All prior to encounter date) This section includes the most current, and the historical, smoking and tobacco- related health factors from the [place] facility where the Encounter took place. Current Smoking Status This section includes the most current smoking, or tobacco-related health factor, from the [place] facility where the Encounter took place. Date/Time Current Smoking Status Comment Facil ity Jun 05, 2023 02:00 PM VA-TOBACCO QUIT 15 YRS OR MORE [facility] Tobacco Use History This section includes a history of the smoking, or tobacco-related health factors, that were collected on or before the date of the Encounter. The data comes from the [place] facility where the Encounter took place. Date/Time Smoking Status/Tobacco Use Comment F acility Jun 05, 2023 02:00 PM VA-TOBACCO QUIT 15 YRS OR MORE [facility] Jul 12, 2018 03:09 PM VA-TOBACCO FORMER USER [facility] Jul 12, 2018 03:09 PM VA-TOBACCO QUIT < 1 YEAR [facility] Aug 28, 2017 09:02 AM CURRENT TOBACCO USER [facility] Aug 28, 2017 09:02 AM SMOKING CESSATION NO [facility] Aug 28, 2017 09:02 AM TOBACCO OFFERRED PT MEDS (PROVID ER) [facility] Aug 28, 2017 09:02 AM TOBACCO OFFERRED STOP SMOKING CL [facility] Dec 12, 2015 11:07 AM CURRENT TOBACCO USER [facility] Jul 05, 2014 08:57 AM CURRENT TOBACCO USER [facility] Mar 22, 2013 10:30 AM CURRENT TOBACCO USER [facility] Apr 05, 2012 02:36 PM CURRENT TOBACCO USER [facility] Feb 18, 2011 09:33 AM CURRENT TOBACCO USER [facility] Feb 08, 2010 09:30 AM CURRENT TOBACCO USER [facility] January 23, 2009 03:36 PM CURRENT TOBACCO USER [facility] January 23, 2009 03:36 PM TOBACCO OFFERRED STOP SMOKING CL [facility] Dec 28, 2007 02:56 PM CURRENT TOBACCO USER [facility] Dec 28, 2007 02:56 PM TOBACCO OFFERRED PT MEDS (PROVID ER) [facility] Dec 28, 2007 02:56 PM TOBACCO OFFERRED STOP SMOKING [facility] Nov 30, 2007 12:58 PM CURRENT TOBACCO USER [facility] Nov 30, 2007 12:58 PM TOBACCO OFFERRED STOP SMOKING [facility] Nov 05, 2006 08:09 AM CURRENT TOBACCO USER [facility] Nov 05, 2006 08:09 AM TOBACCO OFFERRED PT MEDS (PROVID ER) [facility] Nov 05, 2006 08:09 AM TOBACCO OFFERRED STOP SMOKING CL [facility] Jul 24, 2006 01:30 PM TOBACCO CURRENT USER [facility] Jun 25, 2005 09:30 AM TOBACCO CURRENT USER [facility] May 28, 2004 09:31 AM TOBACCO CURRENT USER [facility] Jul 04, 2003 09:43 AM TOBACCO FORMER USER MORE [address] [facility] Dec 20, 2002 08:37 AM TOBACCO CURRENT TX PROGRAM [facility] Dec 20, 2002 08:37 AM TOBACCO CURRENT USER [facility] Nov 26, 2001 09:17 AM TOBACCO FORMER USER LESS [address] [facility] Nov 26, 2001 09:17 AM TOBACCO FORMER USER MORE 12 [facility] Oct 28, 2000 10:59 AM TOBACCO FORMER USER LESS 12 [facility] Oct 28, 2000 10:59 AM TOBACCO FORMER USER MORE 12 [facility] Encounter Notes: All associated encounter notes This section contains the clinical notes associated to the Encounter. Date/Time Encounter Note(s) Provider Source May 24, 2024 08:40 AM AUDIOLOGY NOTE: LOCAL TITLE: AUDIOLOGY ASSESSMENT (T) STANDARD TITLE: AUDIOLOGY NOTE DATE OF NOTE: MAY 24, 2024@08:40 ENTRY DATE: MAY 24, 2024@08:41 AUTHOR: PAT GARZA COSIGNER: URGENCY: STATUS: COMPLETED Previous Hearing Aids: (2) 2020 Phonak RICs (2) 2016 Unitron RICs History: here today to have his hearing tested and obtain new hearing aids. Alpha would like to continue with rechargeable RICs; his current hearing aids are not producing sound, however, are charging. He reports constant bilateral tinnitus, described as buzzing . Alpha describes having a tympanoplasty done privately ~2-3 years ago, however, is not sure if it has held up . denied pain, pressure, vertigo, and family history of hearing loss. Annual C- SSRS screen completed during today's appointment. 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 Left: clear. Reliability: Good Pure Tone Audiometry: High Frequency Headphones Right Ear: Moderately-severe to severe sensorineural hearing loss. Left Ear: Moderate to severe sensorineural hearing loss. Speech Audiometry: Recorded CNC 50 word list with masking. Right Ear: Poor WRS (54%), List: 1 at 90 dBHL Left Ear: Poor WRS (56%), List: 6 at 80 dBHL Tympanometry: Right: Flat, Type B tymp with large ECV, consistent with perforation. Left: Normal, Type A tymp. Acoustic Reflexes: Right: Left: Could not maintain seal 500Hz: 100+ 1kHz: 105+ 2kHz: 105+ Recommendation(s): -Offered ENT referral for perforation, right; declined -Input new thresholds in NIC, connected hearing aids, updated firmware, and updated programming accordingly -Current c-shells defective/missing wax guard grommet and will need to be sent in for repair; replaced with new receivers and domes to wear in the interim -Will send c-shells in for repair; KEEP TO ATTACH AT FITTING -Updated binaural amplification; discussed options with -Will use scans on file -RTC order placed for [facility] DUENAS -Encouraged to see Primary care team for overall health needs ORDER: (2) Tamiko Avery L90-RL with c-shells with canal locks; power receivers; low emission 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
--- OUTSIDE RECORDS SUMMARY | 2024-05-25 05:12 | XMS_ITS | Encounter Summary ---
Author Name Department of [facility] ([place]) Organization [facility] of [facility] ([place]) Address [address] [place] [id number] Care Team Providers Care Molecular Genetic Pathologist Name Role Phone DENNIS JOSHI Primary Care [...] PART B Jun 07, 2001 PART B [id number] [place] PATIENT MEDICARE (WNR) MEDICARE (M) PART B Jun 07, 2001 PART B [id number] [phone] [place] FRANCIS PATIENT MEDICARE (WNR) MEDICARE (M) PART A Jun 07, 2001 PART A [id number] [phone] [place] PATIENT MEDICARE (WNR) MEDICARE (M) PART A January 05, 1999 PART A [id number] [place] [address] [facility]IL[facility] Sep 07, 2018 [id number] [phone] [place] PATIENT Selected Encounter This section includes the information on record at [place] for the Encounter. Date/Time Encounter Type Encounter Description Reason Pro vider Source May 25, 2024 09:12 AM Outpatient Encounter ADMIN PAT ACTIVTIES (MASNONCT) IHE Encounter Template Text not used by [place] Plan of Treatment: Future Appointments (+ 6 months) and Future Tests (+/- 45 days) The Plan of Treatment section includes future care activities for the [facility] This section includes future appointments and future orders which are active, pending or scheduled. Future Appointments This section includes appointments that were scheduled to occur 6 months from the date of the Encounter, up to a maximum of 20 appointments. The data comes from all [facility] facilities. Appointment Date/Time Appointment Type Appointme nt Facility Name May 31, 2024 01:30 PM AMBULATORY - NONE [facility] Jul 28, 2024 11:30 AM AMBULATORY - NONE [facility] Active, Pending, and Scheduled Orders This section includes a listing of several types of active, pending, and scheduled orders, including clinic medications orders, diagnostic test orders, procedure orders and consult orders; where the start date of the order is 45 days before the date of the Encounter or 45 days after the date of theEncounter. The data comes from all [facility] facilities. Test Date/Time Test Type Test Details Facility Name May 05, 2024 12:00 AM Laboratory - Chemi stry Order MICROALBUMIN/CREATININ E RATIO PANEL URINE, RANDOM SP ONCE [facility] Lab Results: +/- 30 days of the encounter This section includes the Chemistry and Hematology Lab Results on record with [place] for the patient. Radiology Reports and Pathology Reports are provided separately, in subsequent sections. Lab Results This section contains the Chemistry/Hematology Results that were resulted 30 days before or 30 daysafter the date of the Encounter. Date/Time Source Result Type Result - Unit Interpretation Reference Range Specimen Type Comment May 24, 2024 01:36 PM [facility] HEMOGLOBIN A1C BLOOD Specimen Type: BLOOD Comment: [...] Jun 05, 2023 02:30 PM Reporting Lab: [facility] [address] [facility] [phone] Performing Lab: [address] [address] HEMOGLOBIN A1C 6.1 H 3.6-5.7 May 24, 2024 01:36 PM [facility] LIPID PROFILE PLASMA Specimen Type: PLASMA Comment: [...] Jun 05, 2023 02:30 PM Reporting Lab: [address] [address] Performing Lab: [address] [address] CHOLESTEROL 146 mg/dL 0-200 LDL CHOLESTEROL 80 mg/dL 0-100 HDL CHOLESTEROL 51 mg/dL 40-60 TRIGLYCERIDE 113 mg/dL 0-150 May 24, 2024 01:36 PM [facility] IRON GROUP SERUM Specimen Type: SERUM No comment entered. Ordering Provider: DALLIN SAMAYOA Report Released Date/Time: Jun 05, 2023 02:30 PM Reporting Lab: [address] [address] Performing Lab: [address] [address] TIBC 174 ug/dL 265-400 IRON 73 ug/dL 50-170 TIBC% 42.0 May 24, 2024 01:36 PM [facility] FERRITIN PLASMA Specimen Type: PLASMA No comment entered. Ordering Provider: DALLIN SAMAYOA Report Released Date/Time: Jun 05, 2023 02:30 PM Reporting Lab: [address] [address] Performing Lab: [address] [address] FERRITIN 984.3 ng/mL H 21.81-574.66 May 24, 2024 01:36 PM [facility] MAGNESIUM PLASMA Specimen Type: PLASMA Comment: LDL [...] Jun 05, 2023 02:30 PM Reporting Lab: [address] [address] Performing Lab: [place] [id number] MAGNESIUM 2.4 mg/dL 1.6-2.6 May 24, 2024 01:36 PM [facility] COMPREHENSIVE METABOLIC PANEL PLASMA S pecimen Type: [...] Jun 05, 2023 02:30 PM Reporting Lab: [address] [address] Performing Lab: [address] [address] ALBUMIN 4.1 g/dL 3.2-4.6 ALKALINE PHOSPHATASE 89 [...] 51.0 mL/min May 24, 2024 01:36 PM [facility] CBC BLOOD Specimen Type: BLOOD No comment entered. Ordering Provider: DALLIN SAMAYOA Report Released Date/Time: Jun 05, 2023 02:30 PM Reporting Lab: [facility] [address] [facility] [address] Performing Lab: [facility] [address] [facility] [address] WBC COUNT 6.2 10*3/uL 3.6-11.0 RBC COUNT [...] and tobacco- related health factors from the [place] facility where the Encounter took place. Current Smoking Status This section includes the most current smoking, or tobacco-related health factor, from the [place] facility where the Encounter took place. Date/Time Current Smoking Status Arnaldo craig Aug 28, 2017 09:02 AM SMOKING CESSATION [address] [facility] Encounter Notes: All associated encounter notes This section contains the clinical notes associated to the Encounter. Date/Time Encounter Note(s) Provider Source May 25, 2024 09:12 AM LETTERS: LOCAL TITLE: SCHEDULING CONTACT ATTEMPT LETTER STANDARD TITLE: LETTERS DATE OF NOTE: MAY 25, 2024@09:12 ENTRY DATE: MAY 25, 2024@09:12:17 AUTHOR: RAI ZHENG EXP COSIGNER: URGENCY: STATUS: COMPLETED [facility] [id number] [place] [id number] May YANN PENNY [address] [place] [address] [place] has received a request to schedule you for a Return to Clinic Order appointment. We attempted to contact you via telephone on May and we were unable to reach you. This is our 2nd attempt to reach you. It is important that you contact us by Jun to schedule your appointment. Please call us at [phone] at extension [phone] between the hours of 8:00 AM to 4:30 PM EST, Thursday through Thursday to schedule your appointment. If you already made an appointment, please disregard this notification. We look forward to your call and thank you for your service. [facility] [address] [place] [address] RAI ZHENG [facility]
--- OUTSIDE RECORDS SUMMARY | 2024-05-31 09:30 | XMS_ITS | Encounter Summary ---
Author Name [facility] [place] Organization [facility] ([place]) Address [address] [place] [id number] Care Team Providers Care Field Marketing Manager Name Role Phone DENNIS JOSHI Primary Care [...] PART B Jun 07, 2001 PART B [id number] [place] TERI PATIENT MEDICARE (WNR) MEDICARE (M) PART A Jun 07, 2001 PART A [id number] [place]ANCIS PATIENT MEDICARE (WNR) MEDICARE (M) PART B Jun 07, 2001 PART B [id number] [place]IS PATIENT MEDICARE (WNR) MEDICARE (M) PART A January 05, 1999 PART A [id number] [phone] [place] FR[place] TERI PATIENT [facility] RAILR OAD [facility] Sep 07, 2018 [id number] [phone] [place] FRANCIS PATIENT Selected Encounter This section includes the information on record at [place] for the Encounter. Date/Time Encounter Type Encounter Description Reason Provider Source May 31, 2024 01:30 PM OFFICE O/P EST MOD 30 MIN PRIMARY CARE/MEDICINE ICD-10-CM E11.9 Type 2 diabetes mellitus without complications DALLIN SAMAYOA [place] Encounter Template Text not used by [place] Assessments - Encounter Diagnoses This section includes the primary and secondary diagnoses documented for the Encounter. 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 DALLIN SAMAYOA [facility] May 31, 2024 02:05 PM SECONDARY Chronic kidney disease, stage 3a DALLIN SAMAYOA [facility] May 31, 2024 02:05 PM SECONDARY Encounter for immunization VU GRIMM [facility] May 31, 2024 02:05 PM SECONDARY Essential (primary) hypertension DALLIN SAMAYOA [facility] May 31, 2024 02:05 PM SECONDARY Hyperlipidemia, unspecified DALLIN SAMAYOA [facility] May 31, 2024 02:05 PM SECONDARY Personal history of pulmonary embolism DALLIN SAMAYOA [facility] May 31, 2024 02:05 PM SECONDARY Presence of cardiac pacemaker DALLIN SAMAYOA [facility] May 31, 2024 02:05 PM SECONDARY Sleep apnea, unspecified DALLIN SAMAYOA [facility] May 31, 2024 02:05 PM SECONDARY Unspecified diastolic (congestive) heart failure DALLIN SAMAYOA [facility] Plan of Treatment: Future Appointments (+ 6 months) and Future Tests (+/- 45 days) The Plan of Treatment section includes future care activities for the patient from all [place] treatmentfacilities. This section includes future appointments and future orders which are active, pending or scheduled. Future Appointments This section includes appointments that were scheduled to occur 6 months from the date of the Encounter, up to a maximum of 20 appointments. The data comes from all [place] treatment facilities. Appointment Date/Time Appointment Type Appointme nt Facility Name Jul 28, 2024 11:30 AM AMBULATORY - NONE CLEVELDARYA Rojas [facility] Active, Pending, and Scheduled Orders This section includes a listing of several types of active, pending, and scheduled orders, including clinic medications orders, diagnostic test orders, procedure orders and consult orders; where the start date of the order is 45 days before the date of the Encounter or 45 days after the date of theEncounter. The data comes from all [place] treatment facilities. Test Date/Time Test Type Test Details Facility Name May 05, 2024 12:00 AM Laboratory - Chemi stry Order MICROALBUMIN/CREATININ E RATIO PANEL URINE, RANDOM SP ONCE [facility] Lab Results: +/- 30 days of the encounter This section includes the Chemistry and Hematology Lab Results on record with [place] for the patient. Radiology Reports and Pathology Reports are provided separately, in subsequent sections. Lab Results This section contains the Chemistry/Hematology Results that were resulted 30 days before or 30 daysafter the date of the Encounter. Date/Time Source Result Type Result - Unit Interpretation Reference Range Specimen Type Comment May 24, 2024 01:36 PM [facility] HEMOGLOBIN A1C BLOOD Specimen Type: BLOOD Comment: [...] Jun 05, 2023 02:30 PM Reporting Lab: [address] [address] Performing Lab: [address] [address] HEMOGLOBIN A1C 6.1 H 3.6-5.7 May 24, 2024 01:36 PM [facility] FERRITIN PLASMA Specimen Type: PLASMA No comment entered. Ordering Provider: DALLIN SAMAYOA Report Released Date/Time: Jun 05, 2023 02:30 PM Reporting Lab: [address] [address] Performing Lab: [place] [id number] FERRITIN 984.3 ng/mL H 21.81-574.66 May 24, 2024 01:36 PM [facility] IRON GROUP SERUM Specimen Type: SERUM No comment entered. Ordering Provider: DALLIN SAMAYOA Report Released Date/Time: Jun 05, 2023 02:30 PM Reporting Lab: [address] [address] Performing Lab: [place] [phone] TIBC 174 ug/dL 265-400 IRON 73 ug/dL 50-170 TIBC% 42.0 May 24, 2024 01:36 PM [facility] LIPID PROFILE PLASMA Specimen Type: PLASMA Comment: [...] Jun 05, 2023 02:30 PM Reporting Lab: [address] [address] Performing Lab: [address] [address] CHOLESTEROL 146 mg/dL 0-200 LDL CHOLESTEROL 80 mg/dL 0-100 HDL CHOLESTEROL 51 mg/dL 40-60 TRIGLYCERIDE 113 mg/dL 0-150 May 24, 2024 01:36 PM [facility] MAGNESIUM PLASMA Specimen Type: PLASMA Comment: LDL [...] Jun 05, 2023 02:30 PM Reporting Lab: [address] [address] Performing Lab: [address] [address] MAGNESIUM 2.4 mg/dL 1.6-2.6 May 24, 2024 01:36 PM [facility] COMPREHENSIVE METABOLIC PANEL PLASMA S pecimen Type: [...] Jun 05, 2023 02:30 PM Reporting Lab: [address] [address] Performing Lab: [address] [address] ALBUMIN 4.1 g/dL 3.2-4.6 ALKALINE PHOSPHATASE 89 [...] 51.0 mL/min May 24, 2024 01:36 PM [facility] CBC BLOOD Specimen Type: BLOOD No comment entered. Ordering Provider: DALLIN SAMAYOA Report Released Date/Time: Jun 05, 2023 02:30 PM Reporting Lab: [address] [address] Performing Lab: [address] [address] WBC COUNT 6.2 10*3/uL 3.6-11.0 RBC COUNT [...] 10*3/uL 0. 0-0.3 MPV 8.8 fL 7.4-11.4 Immunizations: All administered on the encounter date This section contains immunizations associated to the Encounter. Immunization Series Date Issued Administered By Site Reaction Lot Number CVX Code Drug Night Time Babysitter Comment(s) Source COVID-19 (PFIZER), MRNA, LNP-S, PF, CORRINE-SUCROSE, 30 MCG/0.3 ML (AGES 12+ YEARS) 1 May 31, 2024 VU GRIMM RIGHT DELTO ID [id number] [employer] ADMINISTERE D AT [place], Patient tolerated injection well. RONAL DUENAS INFLUENZA, HIGH-DOSE, TRIVALENT, PF May 31, 2024 VU GRIMM LEFT DELTO ID [id number] 135 [employer] PASTE[employer] ADMINISTERE D AT [place], Patient tolerated injection well. RONAL DUENAS Social History: Smoking Status (Most current) and Tobacco Use (All prior to encounter date) This section includes the most current, and the historical, smoking and tobacco- related health factors from the [place] facility where the Encounter took place. Current Smoking Status This section includes the most current smoking, or tobacco-related health factor, from the [place] facility where the Encounter took place. Date/Time Current Smoking Status Comment Alan craig May 31, 2024 01:30 PM VA-TOBACCO FORMER USER [facility] Tobacco Use History This section includes a history of the smoking, or tobacco-related health factors, that were collected on or before the date of the Encounter. The data comes from the [place] facility where the Encounter took place. Date/Time Smoking Status/Tobacco Use Comment F acility May 31, 2024 01:30 PM VA-TOBACCO QUIT 15 YRS OR MORE [facility] Jun 05, 2023 02:00 PM VA-TOBACCO FORMER USER [facility] Jun 05, 2023 02:00 PM VA-TOBACCO QUIT 15 YRS OR MORE [facility] Jul 12, 2018 03:09 PM VA-TOBACCO FORMER USER [facility] Jul 12, 2018 03:09 PM VA-TOBACCO QUIT < 1 YEAR [facility] Aug 28, 2017 09:02 AM CURRENT TOBACCO USER [facility] Aug 28, 2017 09:02 AM SMOKING CESSATION NO [facility] Aug 28, 2017 09:02 AM TOBACCO OFFERRED PT MEDS (PROVID ER) [facility] Aug 28, 2017 09:02 AM TOBACCO OFFERRED STOP SMOKING CL [facility] Dec 12, 2015 11:07 AM CURRENT TOBACCO USER [facility] Jul 05, 2014 08:57 AM CURRENT TOBACCO USER [facility] Mar 22, 2013 10:30 AM CURRENT TOBACCO USER [facility] Apr 05, 2012 02:36 PM CURRENT TOBACCO USER [facility] Feb 18, 2011 09:33 AM CURRENT TOBACCO USER [facility] Feb 08, 2010 09:30 AM CURRENT TOBACCO USER [facility] January 23, 2009 03:36 PM CURRENT TOBACCO USER [facility] January 23, 2009 03:36 PM TOBACCO OFFERRED STOP SMOKING CL [facility] Dec 28, 2007 02:56 PM CURRENT TOBACCO USER [facility] Dec 28, 2007 02:56 PM TOBACCO OFFERRED PT MEDS (PROVID ER) [facility] Dec 28, 2007 02:56 PM TOBACCO OFFERRED STOP SMOKING CL [facility] Nov 30, 2007 12:58 PM CURRENT TOBACCO USER [facility] Nov 30, 2007 12:58 PM TOBACCO OFFERRED STOP SMOKING CL [facility] Nov 05, 2006 08:09 AM CURRENT TOBACCO USER [facility] Nov 05, 2006 08:09 AM TOBACCO OFFERRED PT MEDS (PROVID ER) [facility] Nov 05, 2006 08:09 AM TOBACCO OFFERRED STOP SMOKING CL [facility] Jul 24, 2006 01:30 PM TOBACCO CURRENT USER [facility] Jun 25, 2005 09:30 AM TOBACCO CURRENT USER [facility] May 28, 2004 09:31 AM TOBACCO CURRENT USER [facility] Jul 04, 2003 09:43 AM TOBACCO FORMER USER MORE [address] [facility] Dec 20, 2002 08:37 AM TOBACCO CURRENT TX PROGRAM [facility] Dec 20, 2002 08:37 AM TOBACCO CURRENT USER [facility] Nov 26, 2001 09:17 AM TOBACCO FORMER USER LESS [address] [facility] Nov 26, 2001 09:17 AM TOBACCO FORMER USER MORE [address] [facility] Oct 28, 2000 10:59 AM TOBACCO FORMER USER LESS [address] [facility] Oct 28, 2000 10:59 AM TOBACCO FORMER USER MORE [address] [facility] Encounter Notes: All associated encounter notes This section contains the clinical notes associated to the Encounter. Date/Time Encounter Note(s) Provider Source May 31, 2024 05:08 PM NURSING MEDICATION MGT NOTE: LOCAL TITLE: MEDICATION ADMINISTRATION NOTE (T) STANDARD TITLE: NURSING MEDICATION MGT NOTE DATE OF NOTE: MAY 31, 2024@17:08 ENTRY DATE: MAY 31, 2024@17:08:36 AUTHOR: VU GRIMM EXP COSIGNER: URGENCY: STATUS: COMPLETED Influenza Vaccine Influenza, High-Dose, Trivalent, Preservative Free (Fluzone-Syringe) Administered: INFLUENZA, HIGH-DOSE, TRIVALENT, PF Date Administered: May 31, 2024 14:00 Night Time Babysitter: SANOFI PASTEUR Lot: [id number] Exp Date: Mar 06, [address] [facility]: [phone] Admin Route/Site: INTRAMUSCULAR/LEFT DELTOID Dosage: 0.5mL Vaccine Information Statement(s): INFLUENZA(FLU) VACC(INACTIVATED OR RECOMBINANT)VIS Apr 12, 2021 ([place]) Order By: Policy Administered By: Vu Grimm Comment: Patient tolerated injection well. The Influenza Vaccine Information Statement (VIS) was reviewed with the patient/caregiver which lists the benefits and risks of the vaccine and the risks of not receiving the Influenza vaccine. The patient/caregiver denied any prior severe reaction to this vaccine or its components or a severe allergic reaction, such as anaphylaxis, to any vaccine or any injectable therapy. The patient/caregiver gave verbal consent to receive the vaccine. COVID-19 Vaccine Pfizer Monovalent (Comirnaty) Administered: COVID-19 (PFIZER), MRNA, LNP-S, PF, CORRINE-SUCROSE, 30 MCG/0.3 ML (AGES 12+ YEARS) Date Administered: May 31, 2024 14:00 Series: Series 1 Night Time Babysitter: [employer] Lot: [id number] Exp Date: Dec 06, 2024 Admin Route/Site: INTRAMUSCULAR/RIGHT DELTOID Dosage: 0.3mL Vaccine Information Statement(s): COVID-19 MRNA VACCINE (12+ YRS) VACCINE VIS Jun 25, 2023 ([place]) Order By: Policy Administered By: Vu Grimm Comment: Patient tolerated injection well. Vaccine administered without complications. The following education was provided: Immunization Administration Education: The patient and/or health and safety representative was given the corresponding VIS which lists the benefits and side effects of the vaccine and which reviews the risks of not receiving the vaccine. The VIS was reviewed with the patient and/or health and safety representative and they were given an opportunity to ask questions. The patient and/or health and safety representative was provided education on how to decrease the risk of infection including social distancing and use of good hand hygiene. The patient and/or health and safety representative denied any prior severe reaction to the vaccine or its components. The patient and/or health and safety representative gave verbal consent to receive the vaccine. /kathryn/ VU GRIMM LICENSED PRACTICAL NURSE Signed: 05/31/2024 17:11 [facility] May 31, 2024 01:34 PM INTERNAL MEDICINE OUTPATIENT NOTE: LOCAL TITLE: PRIMARY CARE OUTPATIENT NOTE (T) STANDARD TITLE: INTERNAL MEDICINE OUTPATIENT NOTE DATE OF NOTE: MAY 31, 2024@13:34 ENTRY DATE: MAY 31, 2024@13:34:31 AUTHOR: DALLIN SAMAYOA EXP COSIGNER: URGENCY: STATUS: COMPLETED PRIMARY CARE OUTPATIENT NOTE (T) Has ADDENDA In-person Note Emergency contact number obtained/confirmed. 78yo Reason for Visit: cc: annual visit. cont with current meds. avoid eating b/w meals, lost wt. little physical activity. quit smoking, using nicotine sean. denies any alcohol use. hpi: 78y w/m with hx of diabetes with obesity, htn, hld, cad with diana x 6, pacemaker, wlals HF, ckd 3A, mick, dvt/pe and tobacco use. lmd - dr. ramires. cardio - dr. conde. pulm - dr. moore. uro - dr. patel 23 Active Problems PROBLEM LAST MOD PROVIDER Diabetes mellitus 07/23/2018 DALLIN SAMAYOA Sleep apnea 07/23/2018 DALLIN SAMAYOA Hyperlipidemia 08/28/2017 DALLIN SAMAYOA Chronic kidney disease stage 3 08/28/2017 DALLIN SAMAYOA Cardiac pacemaker in situ 08/28/2017 DALLIN SAMAYOA Chronic renal impairment 03/25/2015 KENYAYARELI Diastolic heart failure 08/28/2017 DALLIN SAMAYOA H/O: Deep vein thrombosis 08/28/2017 DALLIN SAMAYOA Other B-complex deficiencies 08/20/2014 ABDIRIZAK DARNELL Anemia 07/08/2014 ABDIRIZAK DARNELL Vitamin D deficiency 11/06/2013 GHISLAINEYARELI Reddy Pulmonary embolism 08/28/2017 DALLIN SAMAYOA Osteoarthritis 11/06/2013 VENKATAMAXIMILIANOYARELI Reddy Uses moist tobacco daily (SNOMED CT 845958951) 08/28/2017 DALLIN SAMAYOA Irritable Bowel Syndrome 07/09/2007 EDDIE GUPTA Hypertrophy (Benign) 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 Urinary 10/28/2006 EDDIE GUPTA obstruction and other lower Uri Diabetes Mellitus Type II or unspecified with 07/28/2016 NADYA SINGH unspecified complications Hypercholesterolemia 05/28/2001 EDDIE GUPTA Morbid obesity (SNOMED CT 578862671) 07/28/2016 NADYA SINGH Essential hypertension (SNOMED CT 67848879) 07/28/2016 NADYA SINGH Coronary arteriosclerosis (SNOMED CT 46082494) 02/27/2017 NADYA SINGH 5 STENTS Persistent disorder of initiating or maintaining 12/06/1999 BRYCE AGUSTIN Other psychalgia 12/06/1999 WENDI BRITT REVIEW OF SYSTEMS: const: (-) fever (-)chills (-)fatigue (-) changes in weight (-)night sweats heent: (-)headache (-)vision changes (-)hearing changes (-)tinnitis (-) earache (-)sore throat (-)nasal congestion (-)dysphagia (-odynophagia (-)hoarseness neck: (-)pain (-)stiffness (-)swelling lymph: (-)swollen (-)tender (-) cervical (-)axillary (-)inguinal endo: (-)polyuria (-)polydipsia (-)polyphagia (-)fatigue (-)weight gain/loss (-)heat or cold intolerance cor: (-)cp (-)sob (-)dizziness (-)palpitations (-)yang (-)edema (-)pnd (-)yang ()orthopnea pulm: (-)cough (-)congestion (-)sob (-)wheezing (-)pain with breathing (-)hemoptysis gi: (-)abd pain (-)nausea (-)vomitting (-)dysphagia (-)constipation (-) diarrhea (-)blood in stool (-)change in stool (-)dark stools (-)mucus in stool gu: (-)dysuria (-)frequency (-)urgency (-)malodorous (-)dribbling (-) hematuria (-)nocturia msk: (-)muscle pain (-)weakness (-)spasms (-)muscle tone (-)back pain (-)joint pain neuro: (-)headache (-)change in vision (-)weakness (-)change in memory (-)seizures (-)abnormal movements (-) tremors (-)radiculopathy integ: (-)rash (-)lesions (-)itching (-)xerosis psyche: (-)anxiety (-)depression (-)ptsd PATIENT ALLERGIES DETAILED ALLERGIES/ADVERSE REACTIONS Type: DRUG Date/Time Reactant Severity Reaction 08/14/2008 08:31 ZETIA 10MG TAB MUSCLE PAIN 11/05/2006 08:53 CRESTOR 10MG TAB MUSCLE PAIN 12/15/2003 16:32 FLUVASTATIN PAIN,JOINT 07/04/2003 10:03 PRAVACHOL TABLET UNKNOWN 03/27/2003 09:33 ATORVASTATIN UNKNOWN 02/16/2002 13:38 SIMVASTATIN UNKNOWN AMRS - MEDS (REC SUCCINCT) Active and Recently Inpatient, Outpatient and Clinic Medications (including Supplies): Active Outpatient Medications Status ======= 1) SACUBITRIL 24MG/VALSARTAN 26MG TAB TAKE 1 TABLET BY ACTIVE MOUTH TWICE A DAY FOR CHRONIC HEART FAILURE 2) TORSEMIDE 20MG TAB TAKE ONE TABLET BY MOUTH EVERY ACTIVE MORNING Active Non-VA Medications Status ======= 1) Non-VA AMITRIPTYLINE HCL 25MG TAB 25MG MOUTH EVERY ACTIVE EVENING 2) Non-VA ASPIRIN 81MG EC TAB 81MG MOUTH EVERY DAY ACTIVE 3) Non-VA CARVEDILOL 6.25MG TAB 6.25MG MOUTH TWICE A DAY ACTIVE 4) Non-VA CHOLECALCIF 25MCG (D3-1,000UNIT) TAB 3000UNIT ACTIVE MOUTH EVERY DAY 5) Non-VA DIPHENHYDRAMINE HCL 50MG CAP 50MG MOUTH AT ACTIVE BEDTIME 6) Non-VA DOCUSATE NA 100MG CAP 100MG MOUTH EVERY ACTIVE EVENING 7) Non-VA EZETIMIBE 10MG TAB 10MG MOUTH EVERY DAY ACTIVE 8) Non-VA FERROUS SULFATE 325MG TAB 325MG MOUTH TWICE A ACTIVE DAY 9) Non-VA ISOSORBIDE MONONITRATE 30MG SA TAB 30MG MOUTH ACTIVE EVERY DAY 10) Non-VA MELATONIN CAP/TAB 20MG MOUTH AT BEDTIME ACTIVE 11) Non-VA OMEPRAZOLE 20MG EC CAP 40MG MOUTH EVERY ACTIVE MORNING, ON AN EMPTY STOMACH 12) Non-VA POLYETHYLENE GLYCOL 3350 ORAL PWDR 1 CAPFUL ACTIVE (17GM) IN 8 OUNCES OF LIQUID AND TAKE BY MOUTH EVERY OTHER DAY 13) Non-VA TEMAZEPAM 30MG CAP 30MG MOUTH AT BEDTIME ACTIVE NEEDED 14) Non-VA ZZWARFARIN (EQV-COUMADIN) 7.5MG TAB 7.5MG ACTIVE MOUTH AT BEDTIME 16 Total Medications PHYSICAL EXAM: Vital Signs: T: 97.8 F [36.6 C] (05/31/2024 13:20) P: 82 (05/31/2024 13:20) R: 16 (05/31/2024 13:20) BP: 127/78 (05/31/2024 13:30) Pain: 0 (05/31/2024 13:20) Height: 68 in [172.7 cm] (07/28/2016 12:57) Weight: 218 lb [98.88 kg] (05/31/2024 13:20) Pulse Ox: 99% (05/31/2024 13:20) pe gen: 78 y w/m alert ox4, well-groomed and dressed, ambulatory with use of a single point cane. heent: normocephalic anicteric perrla eomi (+)corrective lenses. nares patent. eacs and tms without lamine, bulging or retractions. old perf noted AD. oral mucosa/hypopharynx moist and pink. uvula midline. no oral lesions noted. (+) hearing aides. edentulous upper neck: supple. trachea midline. no bruits noted lymph: no ant/post cerv adenopathy noted endo: no thyromegaly noted cor: hrrr without m, c or g chst: ctab. chest symm. pacer left upper chest wall abd: soft, nt, nd, bs x4 ausc. no organomegaly/bruits noted msk: (+)5/5 ue/le prox and distally integ: no rashes or lesions noted. neuro: pt alert ox4, perrla, eomi, cn 2 - 12 intact. gait normal. no tremors or abnormal movements noted psyche: mood/affect appropriate. recent and remote memory intact ASSESSMENT/PLAN: 1) dm with obesity- a1c = 6.1- diet controlled. reviewed a heart healthy/diab diet. daily activities as toelrated 2) hypertension - well-controlled on current meds 3) lpjwecdhqvgibr-zvmy-magkspegdp on zetia 4) cad with hx of diana x 6- asym. cont with current meds. followed per cardio 5) pacemaker- followed per cardio 6) walls HF- asym. cont with current meds 7) ckd stage 3A- stable. stay hydrated. avoid nsaids and dark sodas 8) mick- cont with cpap nightly 9) hx of dvt and pe- cont with current meds. has nonfunctioning jeronimo filter 10) hx of tobacco use- cont with abstinence. 11) meds and labs reviewed with pt. copies provided to pt 12) reviewed a heart healthy diet of no added salt, diet low in fat, chol and processed foods. increase fluids, fruits, veg, fiber and bran in diet. daily exercise as tolerated. emphasized safety HEALTH MAINTENANCE/CLINICAL REMINDERS: Clinical Reminders Activity Sexual Orientation: The patient thinks of their sexual orientation as: Straight or Heterosexual Alcohol Use Screen (AUDIT-C) (Provider): Alcohol Screen: SCREEN FOR ALCOHOL (AUDIT-C) An alcohol screening test (AUDIT-C) was negative (score=0). 1. How often did you have a drink containing alcohol in the past year? Consider a drink to be a 12 ounce can or bottle of regular beer, 8 ounces of malt liquor, a 5 ounce glass of table wine, or a 1.5 ounce shot of liquor (like scotch, gin, or vodka). Never 2. How many drinks containing alcohol did you have on a typical day when you were drinking in the past year? Response not required due to responses to other questions. 3. How often did you have six or more drinks on one occasion in the past year? Response not required due to responses to other questions. Depression Screening (Provider): Perform PHQ-2 A PHQ-2 screen was performed. The score was 0 which is a negative screen for depression. Over the past two weeks, how often have you been bothered by the following problems? 1. Little interest or pleasure in doing things Not at all 2. Feeling down, depressed, or hopeless Not at all MEDICATION RECONCILIATION Medication Reconciliation report reviewed and discussed with patient/caregiver. VA prescription medications, non-VA prescription medications, OTC and herbal medications reviewed: Patient/caregiver verifies that the list is complete and accurate and voices understanding. FOLLOW-UP: annual with labs 1-2 wks prior including cbc, cmp, mg, lipids, a1c and microalb I am the Attending Physician. TOTAL TIME SPENT: Spent 31 minutes in care of this patient today including review of records, exam, and placing orders. /kathryn/ DALLIN SAMAYOA PHYSICIAN Signed: 05/31/2024 14:05 04/03/2025 ADDENDUM STATUS: COMPLETED Farxiga recommended by police stenographer. Jardiance is formulary. Ordered for patient. /kathryn/ DENNIS JOSHI NURSE PRACTITIONER Signed: 04/03/2025 15:58 [facility] SAM[facility] May 31, 2024 01:23 PM PRIMARY CARE NURSI NG NOTE: LOCAL TITLE: OUTPATIENT NURSING INTAKE NOTE (T) STANDARD TITLE: PRIMARY CARE NURSING NOTE DATE OF NOTE: MAY 31, 2024@13:23 ENTRY DATE: MAY 31, 2024@13:23:28 AUTHOR: VU GRIMM COSIGNER: URGENCY: STATUS: COMPLETED Hemoglobin A1C Results: Collection DT Specimen Test Name Result Units Ref Range 05/24/2024 13:36 BLOOD HEMOGLOBIN A1C 6.1 H % 3.6 - 5.7 Comment: Values obtained from A1C measurements can vary. For typical A1C Comment: assays, a reported value of 7.0 could actually be between 6.72 and Comment: 7.28 if measured by a reference method. A reported value of 9.0 Comment: could actually be between 8.73 and 9.27. Ref: Comment: [email or web address]://[email or web address]/[email or web address] 05/24/2021 10:05 BLOOD HEMOGLOBIN A1C 5.8 H % 3.6 - 5.7 01/22/2021 09:47 BLOOD HEMOGLOBIN A1C 6.0 H % 3.6 - 5.7 Review Allergies Allergies reviewed and updated per protocol. ALLERGIES/ADVERSE REACTIONS Type: DRUG Date/Time Reactant Severity Reaction 08/14/2008 08:31 ZETIA 10MG TAB MUSCLE PAIN 11/05/2006 08:53 CRESTOR 10MG TAB MUSCLE PAIN 12/15/2003 16:32 FLUVASTATIN PAIN,JOINT 07/04/2003 10:03 PRAVACHOL TABLET UNKNOWN 03/27/2003 09:33 ATORVASTATIN UNKNOWN 02/16/2002 13:38 SIMVASTATIN UNKNOWN New blood pressure reading was documented at this visit. 127/78 MEDICATION LIST REVIEW REPORT Patient states no change in documented OTC/Herbals at this visit. 1. Has the patient been feeling sad or distressed? No 2. Has the patient been having personal or family problems? No 3. Has the patient been experiencing worry and/or stress? No 4. Has the patient been having problems with drugs and/or alcohol? No 5. Crisis Line pocket card was provided to patient. No/patient declined [facility] ('s [place], [place] and [place]) What matters most to you? Comment: Getting rid of the neuropathy Clinical Reminders Activity Alcohol Use Screen (AUDIT-C): Alcohol Screen: SCREEN FOR ALCOHOL (AUDIT-C) An alcohol screening test (AUDIT-C) was negative (score=0). 1. How often did you have a drink containing alcohol in the past year? Consider a drink to be a 12 ounce can or bottle of regular beer, 8 ounces of malt liquor, a 5 ounce glass of table wine, or a 1.5 ounce shot of liquor (like scotch, gin, or vodka). Never 2. How many drinks containing alcohol did you have on a typical day when you were drinking in the past year? Response not required due to responses to other questions. 3. How often did you have six or more drinks on one occasion in the past year? Response not required due to responses to other questions. COVID-19 Immunization: Depression Screening: Perform PHQ-2 A PHQ-2 screen was performed. The score was 1 which is a negative screen for depression. Over the past two weeks, how often have you been bothered by the following problems? 1. Little interest or pleasure in doing things Several days 2. Feeling down, depressed, or hopeless Not at all Fall Screen: Patient was asked if he/she has had any falls within the past 12 months. Patient states he/she has had two or more falls in the past 12 months. Teaching Method: Verbal discussion Education Topic: Falls Risk Level of Understanding: Good Foot Exam: PAVE: Frail/Elderly Screen: ADL Screen Record INDEX of ADL. Score = 18 1. Bathing: either sponge bath, tub bath or shower. Receives no assistance (gets in and out of tub by self, if tub is usual means of bathing). 2. Dressing: gets clothes from closets and drawers, including under-clothes, outer garments and using fasteners (including braces if worn). Gets clothes and dresses self without assistance. 3. Toileting: going to the toilet room for bowel and urine elimination; cleaning self after elimination and arranging clothes. (May use cane, walker, or wheelchair, and manage bedpan or commode, emptying same next morning). No assistance needed. 4. Transfer: Moves in and out of bed, or chair, without assistance (may use support object like cane or walker). 5. Continence: Controls urination and bowel movement completely by self. 6. Feeding: Feeds self without assistance. IADL Screen: Ability to use telephone: (1 point) Operates Telephone on own initiative; looks up and dials numbers. Shopping: (1 point) Takes care of all shopping needs independently. Food preparation: (1 point) Plans, prepares, and serves adequate meals independently. Housekeeping: (1 point) Performs light daily tasks such as dishwashing, bed making. Laundry: (1 point) Launders small items, rinses socks, stockings, etc. Mode of transportation: (1 point) Travels independently on public transportation or drives own car. Responsibility for own medications: (0 points) Takes responsibility if medication is prepared in advance in separate dosages. Ability to handle finances: (1 point) Manages financial matters independently (budgets, writes checks, pays rent and bills, goes to bank); collects and keeps track of income. Total score: 7 points 8 = High function, independent 0 = Low function, dependent Patient Education Documentation: LEARNING NEEDS ASSESSMENT: Learning Preference: Visual Hearing Hands-on Written (in nightmute language) Barriers to Learning: Visual Limitations : Glasses Physical Limitations : Utilizes cane Hearing Limitations : Hearimng aids Social Influences Related to Educational Needs: No social barriers to learning Pneumococcal PPSV23 (Pneumovax): The patient declines to receive the recommended dose of PPSV23 vaccine. Immunization: PNEUMOCOCCAL POLYSACCHARIDE PPV23 Refusal Reason: PATIENT DECISION Patient refuses all immunization(s) in the PneumoPPV group Date Documented: 05/31/24 13:37 Tobacco Use Screening: The patient is a former tobacco user. The patient quit fifteen or more years ago. /kathryn/ [facility] LICENSED PRACTICAL NURSE Signed: 05/31/2024 13:38 [facility]
--- OUTSIDE RECORDS SUMMARY | 2025-03-23 04:01 | XMS_ITS ---
Author Organization The [facility] in [place] Address [address] [place] [address] Care Team Providers Care Steward Dishwasher Name Role Phone Omid Stark Primary Care Provider REASON FOR VISIT rf temazepam Medications Medication SIG (Take, Route, Fr equency, Duration) Notes Start Date End Date Status Temazepam 30 MG 1 capsule at bedtime as needed Orally dx G47.00 Once a day for 30 days 03/23/2025 Active Encounters Encounter Location Date Provider Diagnosis [facility] [address] [place] [address] 03/23/2025 Omid Stark Fatigue R53.83 Assessments Encounter Date Diagnosis (ICD Code) Assessment Notes Treatment Notes Treatment Clinical Notes Section Notes 03/23/2025 Fatigue (ICD-10 - R53.83) Plan Of Treatment Medication Medication Name Sig Start Date Stop Date Notes Temazepam 30 MG 1 capsule at bedtime as needed Orally dx G47.00 Once a day for 30 days 03/23/2025 Progress Notes * Dylon FRANCIS KDOB: [birth year] (79 yo M)Acc No.[id number]:03/23/2025 Patient: Sushant KEVINDylon :1945 A ge:79 Y S ex:Male Address:[address] [place] [address] * Refills Refill Temazepam Capsule, 30 MG, Orally dx G47.00, 30, 1 capsule at bedtime as needed, Once a day, 30 days, Refills=0 * true * Date: Generated for Sergio quintero/Gurwinder/Zuleykaitting on: 0 04/25/2025 12:47 PM EDT
--- OUTSIDE RECORDS SUMMARY | 2025-04-24 03:54 | XMS_ITS ---
Author Organization The [facility] in [place] Address [address] [place] [address] Care Team Providers Care Web Methods Developer Name Role Phone Omid Stark Primary Care Provider [phone] REASON FOR VISIT refill Medications Medication SIG (Take, Route, Fr equency, Duration) Notes Start Date End Date Status Temazepam 30 MG 1 capsule at bedtime as needed Orally dx G47.00 Once a day for 30 days 04/24/2025 Active Encounters Encounter Location Date Provider Diagnosis [facility] [address] [place] [facility] [place] [place] [address] 04/24/2025 Omid Stark Fatigue R53.83 Assessments Encounter Date Diagnosis (ICD Code) Assessment Notes Treatment Notes Treatment Clinical Notes Section Notes 04/24/2025 Fatigue (ICD-10 - R53.83) Plan Of Treatment Medication Medication Name Sig Start Date Stop Date Notes Temazepam 30 MG 1 capsule at bedtime as needed Orally dx G47.00 Once a day for 30 days 04/24/2025 Progress Notes * Dylon FRANCIS KDOB: [birth year] (79 yo M)Acc No.[id number]:04/24/2025 Patient: Sushant KEVINDylon :1945 A ge:79 Y S ex:Male Address:[address] [place] [id number] * Refills Refill Temazepam Capsule, 30 MG, Orally dx G47.00, 30, 1 capsule at bedtime as needed, Once a day, 30 days, Refills=0 * true * Date: Generated for Sergio quintero/Gurwinder/Willy on: 0 04/25/2025 12:47 PM EDT
--- OUTSIDE RECORDS SUMMARY | 2025-04-25 06:23 | XMS_ITS ---
Author Organization The [facility] in [place] Address [address] [place] [address] Care Team Providers Care Human Resources Analyst Name Role Phone Omid Stark Primary Care Provider [phone] REASON FOR VISIT Labs Encounters Encounter Location Date Provider Diagnosis [facility] [address] [place] [address] 04/25/2025 Omid Stark Fatigue R53.83 Assessments Encounter Date Diagnosis (ICD Code) Assessment Notes Treatment Notes Treatment Clinical Notes Section Notes 04/25/2025 Fatigue (ICD-10 - R53.83) Plan Of Treatment Pending Test Test Name Order Date CBC AUTO DIFF 04/25/2025 FERRITIN 04/25/2025 IRON 04/25/2025 PROF 14(COMP METB) 04/25/2025 Progress Notes * Dylon FRANCIS KDOB: [birth year] (79 yo M)Acc No.[id number]:04/25/2025 Patient: Sushant KEVINDylon :1945 A ge:79 Y S ex:Male Address:[address] [place] [phone] Subjective: * Chief Complaints: * L abs * Medical History: * Surgical History: * Hospitalization/Major Diagno stic Procedure: * Medications: Objective: * Vitals: * Physical Examination: Assessment: * Assessment: 1. F atigue - R53.83 (Primary) Plan: * Treatment: * Procedure Codes: * true * Date: Generated for Printi ng/Faxing/Willy on: 0 04/25/2025 12:47 PM EDT
--- OUTSIDE RECORDS SUMMARY | 2025-04-25 07:46 | XMS_ITS | Continuity of Care Document ---
Author Name [facility] Organization [facility] Care Team Providers Care Gang Investigator Name Role Phone [facility] Unavailable Unavailable Problems Combined list of problems from Department of Defense and Veterans Affairs facilities. It does not include entries that were removed or entered in error. Problem Status Onset Date Problem Type Date of Resolution Comments Source Anemia Active Condition [facility] Cardiac pacemaker in situ Active Condition [facility] Chronic kidney disease Active Condition [facility] Chronic kidney disease due to type 2 diabetes mellitus (SNOMED CT 030082358844) Active Condition [facility] Chronic kidney disease stage 3 Active Condition [facility] Chronic kidney disease stage 3A Active Condition [facility] Coronary arteriosclerosis (SNOMED CT 43108696) Active Condition Feb 27, 2017 Entered By: NADYA SINGH Comment: 5 STENTS [facility] Diabetes mellitus Active Condition [facility] Diastolic heart failure Active Condition [facility] Essential hypertension (SNOMED CT 98444670) Active Condition [facility] H/O: Deep vein thrombosis Active Condition [facility] Hypercholesterolemia Active Condition [facility] Hyperlipidemia Active Condition [facility] Hypertrophy (Benign) 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 Urinary obstruction and other lower Uri Active Condition [facility] Irritable Bowel Syndrome Active Condition [facility] Morbid obesity (SNOMED CT [id number]) Active Condition [facility] Osteoarthritis Active Condition [facility] PERSISTENT INSOMNIA Active Condition [facility] PSYCHOGENIC PAIN NEC Active Condition [facility] Pulmonary embolism Active Condition [facility] Sleep apnea Active Condition [facility] Uses moist tobacco daily (SNOMED CT 797834363) Active Condition [facility] Vitamin B 12 Deficiency Active Condition [facility] Vitamin D deficiency Active Condition [facility] Diagnosis: ICD-10-CM Z46.1 Encounter for fitting and adjustment of hearing aid Active Diagnosis [facility] Diagnosis: ICD-10-CM E11.9 Type 2 diabetes mellitus without complications Active Diagnosis [facility] Diagnosis: ICD-10-CM H90.3 Sensorineural hearing loss, bilateral Active Diagnosis [facility] Medications Combined list of outpatient medications from Department of Defense and Veterans Affairs facilities.Medications provided include 1) outpatient medications from the last 15 months, and 2) patient-reported medications. Medication Details Route Status Patient Instructions Prescription Expires Prescription Number Last Dispense Date Ordering Provider Order Date Order Qty Source AMITRIPTYLI NE HCL 25MG TAB TAKE ONE TABLET BY MOUTH EVERY EVENING ORAL ACTIVE DALLIN SAMAYOA 2018 [facility] ASPIRIN 81MG TAB,EC TAKE ONE TABLET BY MOUTH EVERY DAY ORAL ACTIVE DALLIN SAMAYOA R 2022 [facility] CARVEDILOL 6.25MG TAB TAKE ONE TABLET BY MOUTH TWICE A DAY ORAL ACTIVE DALLIN SAMAYOA R 2022 [facility] CHOLECALCIF LISA 25MCG (1,000UNIT) TAB TAKE THREE TABLETS BY MOUTH EVERY DAY ORAL ACTIVE MALICDEMYARELI 2015 [facility] DIPHENHYDRA MINE HCL 50MG CAP TAKE 1 CAPSULE BY MOUTH AT BEDTIME ORAL ACTIVE MALICDEYARELI Reddy 2014 [facility] DOCUSATE NA 100MG CAP TAKE 1 CAPSULE BY MOUTH EVERY EVENING ORAL ACTIVE MALICDEBarry RASHIDA 2014 [facility] EMPAGLIFLOZ IN 25MG TAB TAKE ONE-HALF TABLET BY MOUTH EVERY MORNING FOR HEART FAILURE ORAL ACTIVE 04/04/2026 [id number] [place] JOSHI 2024 45 [facility] EZETIMIBE 10MG TAB TAKE ONE TABLET BY MOUTH EVERY DAY ORAL ACTIVE DALLIN SAMAYOA R 2022 [facility] FERROUS SO4 325MG TAB TAKE ONE TABLET BY MOUTH TWICE A DAY ORAL ACTIVE DALLIN SAMAYOA 2016 [facility] ISOSORBIDE MONONITRATE 30MG TAB,SA TAKE ONE TABLET BY MOUTH EVERY DAY ORAL ACTIVE MALICDEYARELI Reddy 2015 [facility] MELATONIN CAP/TAB TAKE 20MG BY MOUTH AT BEDTIME ORAL ACTIVE DALLIN SAMAYOA R 2018 [facility] OMEPRAZOLE 20MG CAP,EC TAKE 2 CAPSULES BY MOUTH EVERY MORNING, ON AN EMPTY STOMACH ORAL ACTIVE DALLIN SAMAYOA 2016 [facility] POLYETHYLEN E GLYCOL 3350 PWDR,ORAL STIR 1 CAPFUL (17GM) IN 8 OUNCES OF LIQUID AND TAKE BY MOUTH EVERY OTHER DAY ORAL ACTIVE YARELI ZAMBRANO 2014 [facility] SACUBITRIL 24MG/VALSAR HOOD 26MG TAB TAKE 1 TABLET BY MOUTH TWICE A DAY FOR CHRONIC HEART FAILURE ORAL DISCONT INUED 04/20/2025 [id number] DALLIN SAMAYOA R 2023 180 [facility] SACUBITRIL 49MG/VALSAR HOOD 51MG TAB TAKE ONE-HALF TABLET BY MOUTH TWICE A DAY NOTE STENGTH/ DIRECTIO NS ORAL ACTIVE 04/04/2026 [id number] [place] JOSHI 2024 90 [facility] SACUBITRIL 49MG/VALSAR HOOD 51MG TAB TAKE ONE-HALF TABLET BY MOUTH TWICE A DAY NOTE STENGTH/ DIRECTIO NS ORAL DISCONT INUED 10/13/2025 [id number] DALLIN SAMAYOA R 2024 90 [facility] TEMAZEPAM 30MG CAP TAKE 1 CAPSULE BY MOUTH AT BEDTIME NEEDED ORAL ACTIVE DALLIN SAMAYOA 2018 [facility] WARFARIN NA 7.5MG TAB TAKE ONE TABLET BY MOUTH AT BEDTIME ORAL ACTIVE DALLIN SAMAYOA 2016 [facility] Allergies, Adverse Reactions, Alerts Combined list of allergies from Department of Defense and Veterans Affairs facilities. It does not include entries that were removed or entered in error. Substance Category Reaction Severity Reaction type Status Date Reported Comments Source ATORVASTATIN Propensity to adverse reactions to drug (finding) active 3 [facility] CRESTOR 10MG TAB Propensity to adverse reactions to drug (finding) Muscle pain active 7 [facility] FLUVASTATIN Propensity to adverse reactions to drug (finding) PAIN,JOIN T active 4 [facility] PRAVACHOL TABLET Propensity to adverse reactions to drug (finding) active 3 [facility] SIMVASTATIN Propensity to adverse reactions to drug (finding) active 2 [facility] ZETIA 10MG TAB Propensity to adverse reactions to drug (finding) Muscle pain active 8 [facility] Immunizations Combined list of available immunizations from the Department of Defense and Veterans Affairs facilities. Immunization Series Date Given Administered By Site Reaction Lot Number CVX Code Drug Provider Network Mgr Status Comments Source COVID-19 ([employer]), MRNA, LNP-S, PF, CORRINE-SUCROSE, 30 MCG/0.3 ML (AGES 12+ YEARS) 1 2023 RO[place]ARY DAV[place] [id number] 309 complet ed ADMINISTE RED AT [place], Patient tolerated injection well. [facility]ON[facility] INFLUENZA, HIGH-DOSE, TRIVALENT, PF 2023 ROSEMARY DAVID LEFT DELTO ID [id number] 135 complet ed ADMINISTE RED AT [place], Patient tolerated injection well. [facility] COVID-19 ([employer]), MRNA, LNP-S, PF, CORRINE-SUCROSE, 30 MCG/0.3 ML (AGES 12+ YEARS) 2022 309 complet ed HISTORICA L INFORMATI ON - FROM OTHER REGISTRY, [facility] COVID-19 ([employer]), MRNA, LNP-S, BIVALENT, PF, 30 MCG/0.3 ML DOSE 4 2021 300 complet ed [facility]IST[facility]ICA L INFORMATI ON - FROM OTHER REGISTRY, [facility] INFLUENZA VACCINE, QUADRIVALENT, ADJUVANTED 3 2021 205 complet ed HISTORICA L INFORMATI ON - FROM OTHER REGISTRY, [facility] COVID-19 ([employer]), MRNA, LNP-S, PF, 30 MCG/0.3 ML DOSE 3 2021 208 complet ed H[facility]ORICA L INFORMATI ON - FROM OTHER REGISTRY, [facility] COVID-19 ([employer]), MRNA, LNP-S, PF, 30 MCG/0.3 ML DOSE 2 2020 208 complet ed [facility]ICA L INFORMATI ON - FROM OTHER REGISTRY, [facility] COVID-19 ([employer]), MRNA, LNP-S, PF, 30 MCG/0.3 ML DOSE 1 2020 208 complet ed [facility]ICA L INFORMATI ON - FROM OTHER REGISTRY, [facility] INFLUENZA (HISTORICAL) 2018 88 complet ed local pharm [facility] ZOSTER RECOMBINANT 2017 187 complet ed [facility] INFLUENZA (HISTORICAL) 2017 88 complet ed Private PCP [facility] TDAP 1 2017 115 complet ed [facility]FORMAT[facility] ON - FROM OTHER REGISTRY, [facility] INFLUENZA, HIGH DOSE SEASONAL 2 2016 135 complet ed [facility]ICA L INFORMATI ON - FROM OTHER REGISTRY, [facility] INFLUENZA (HISTORICAL) [address] [facility] PNEUMOCOCCAL CONJUGATE PCV 13 2015 133 complet ed [facility] INFLUENZA, INJECTABLE, QUADRIVALENT, PRESERVATIVE FREE 1 2014 150 complet ed HISTORICA L INFORMATI ON - FROM OTHER REGISTRY, [facility] INFLUENZA (HISTORICAL) 2014 88 complet ed [facility] [place] [facility] INFLUENZA, SEASONAL, INJECTABLE, PRESERVATIVE FREE 2013 140 complet ed [facility] INFLUENZA, UNSPECIFIED FORMULATION 2013 88 complet ed [facility] DTAP, UNSPECIFIED FORMULATION 2013 107 complet ed [facility] INFLUENZA, UNSPECIFIED FORMULATION 2012 88 complet ed [facility] INFLUENZA (HISTORICAL) 2012 88 complet ed [facility] INFLUENZA (HISTORICAL) 2010 88 complet ed [facility] INFLUENZA, UNSPECIFIED FORMULATION 2010 88 complet ed [facility] INFLUENZA, UNSPECIFIED FORMULATION 2009 88 complet ed [facility] INFLUENZA, UNSPECIFIED FORMULATION 2008 88 complet ed [facility] INFLUENZA, UNSPECIFIED FORMULATION 2007 88 complet ed [facility] INFLUENZA, WHOLE 2002 16 complet ed [facility] TD(ADULT) UNSPECIFIED FORMULATION 2002 139 complet ed [facility] PNEUMOCOCCAL, UNSPECIFIED FORMULATION 2000 109 complet ed [facility] Results Combined list of recent chemistry, hematology and other laboratory results from Department of Defense and Veterans Affairs, ranging from 15 months to all on record, depending upon the facility. Order Name Results Value Reference Range Date Interpretation Specimen Comments Source HEMOGLOBI N A1C HEMOGLOBIN A1C/HEMOGLO BIN.TOTAL IN BLOOD 6.1 3.6 - 5.7 05/24 H Specimen Type: BLOOD Comment: Values obtained from A1C measurement s can vary. For typical A1C assays, a reported value of 7.0 could actually be between 6.72 and 7.28 if measured by a reference method. A reported value of 9.0 could actually be between 8.73 and 9.27. Ref: http://www. ngsp.org/[place] Pdata.asp Ordering Provider: PEMA SAMAYOA Report Released Date/Time: Jun 05, 2023 02:30 PM Reporting Lab: [place] [id number] Performing Lab: [place] [id number] [facility] LIPID PROFILE CHOLESTEROL [MASS/VOLUM E] IN SERUM OR PLASMA 146 mg/dL 0 - 200 05/24 Specimen Type: PLASMA Comment: LDL REF RANGE: OPTIMAL: <100 mg/dL BORDERLINE HIGH: 130-159 mg/dL LDL HIGH: 160-189 mg/dL VERY HIGH: >=190 TRIG REF RANGE: NORMAL <150 mg/dL BORDERLINE HIGH: 150-199 mg/dL TRIG HIGH: 200-499 mg/dL VERY HIGH: >=500 mg/dL CREA eGFR was calculated using the CKD-EPI 2020 equation. Ordering Provider: PEMA SAMAYOA Report Released Date/Time: Jun 05, 2023 02:30 PM Reporting Lab: [place] [id number] Performing Lab: [place] [id number] [facility] LIPID PROFILE CHOLESTEROL IN LDL [MASS/VOLUM E] IN SERUM OR PLASMA BY DIRECT ASSAY 80 mg/dL 0 - 100 05/24 Specimen Type: PLASMA Comment: LDL REF RANGE: OPTIMAL: <100 mg/dL BORDERLINE HIGH: 130-159 mg/dL LDL HIGH: 160-189 mg/dL VERY HIGH: >=190 TRIG REF RANGE: NORMAL <150 mg/dL BORDERLINE HIGH: 150-199 mg/dL TRIG HIGH: 200-499 mg/dL VERY HIGH: >=500 mg/dL CREA eGFR was calculated using the CKD-EPI 2020 equation. Ordering Provider: PEMA SAMAYOA EX R Report Released Date/Time: Jun 05, 2023 02:30 PM Reporting Lab: [place] [id number] Performing Lab: [place] [id number] LIPID PROFILE CHOLESTEROL IN HDL [MASS/VOLUM E] IN SERUM OR PLASMA 51 mg/dL 40 - 60 05/24 Specimen Type: PLASMA Comment: LDL REF RANGE: OPTIMAL: <100 mg/dL BORDERLINE HIGH: 130-159 mg/dL LDL HIGH: 160-189 mg/dL VERY HIGH: >=190 TRIG REF RANGE: NORMAL <150 mg/dL BORDERLINE HIGH: 150-199 mg/dL TRIG HIGH: 200-499 mg/dL VERY HIGH: >=500 mg/dL CREA eGFR was calculated using the CKD-EPI 2020 equation. Ordering Provider: PEMA SAMAYOA EX R Report Released Date/Time: Jun 05, 2023 02:30 PM Reporting Lab: [place] [id number] Performing Lab: [address] LIPID PROFILE TRIGLYCERID E [MASS/VOLUM E] IN SERUM OR PLASMA 113 mg/dL 0 - 150 05/24 Specimen Type: PLASMA Comment: LDL REF RANGE: OPTIMAL: <100 mg/dL BORDERLINE HIGH: 130-159 mg/dL LDL HIGH: 160-189 mg/dL VERY HIGH: >=190 TRIG REF RANGE: NORMAL <150 mg/dL BORDERLINE HIGH: 150-199 mg/dL TRIG HIGH: 200-499 mg/dL VERY HIGH: >=500 mg/dL CREA eGFR was calculated using the CKD-EPI 2020 equation. Ordering Provider: PEMA SAMAYOA EX R Report Released Date/Time: Jun 05, 2023 02:30 PM Reporting Lab: [place] [id number] Performing Lab: [address] FERRITIN FERRITIN [MASS/VOLUM E] IN SERUM OR PLASMA 984.3 ng/mL 21.81 - 574.66 05/24 H Specimen Type: PLASMA No comment entered. Ordering Provider: PEMA SAMAYOA Report Released Date/Time: Jun 05, 2023 02:30 PM Reporting Lab: [place] [id number] Performing Lab: [place] [id number] IRON GROUP IRON BINDING CAPACITY [MASS/VOLUM E] IN SERUM OR PLASMA 174 ug/dL 265 - 400 05/24 Specimen Type: SERUM No comment entered. Ordering Provider: PEMA SAMAYOA R Report Released Date/Time: Jun 05, 2023 02:30 PM Reporting Lab: [place] [id number] Performing Lab: [address] IRON GROUP IRON [MASS/VOLUM E] IN SERUM OR PLASMA 73 ug/dL 50 - 170 05/24 Specimen Type: SERUM No comment entered. Ordering Provider: PEMA SAMAYOA Report Released Date/Time: Jun 05, 2023 02:30 PM Reporting Lab: [place] [id number] Performing Lab: [place] [id number] IRON GROUP IRON/IRON BINDING CAPACITY.TO SABINA [MASS RATIO] IN SERUM OR PLASMA 42.0 05/24 Specimen Type: SERUM No comment entered. Ordering Provider: PEMA SAMAYOA Report Released Date/Time: Jun 05, 2023 02:30 PM Reporting Lab: [place] [id number] Performing Lab: [place] [id number] MAGNESIUM MAGNESIUM [MASS/VOLUM E] IN SERUM OR PLASMA 2.4 mg/dL 1.6 - 2.6 05/24 Specimen Type: PLASMA Comment: LDL REF RANGE: OPTIMAL: <100 mg/dL BORDERLINE HIGH: 130-159 mg/dL LDL HIGH: 160-189 mg/dL VERY HIGH: >=190 TRIG REF RANGE: NORMAL <150 mg/dL BORDERLINE HIGH: 150-199 mg/dL TRIG HIGH: 200-499 mg/dL VERY HIGH: >=500 mg/dL CREA eGFR was calculated using the CKD-EPI 2020 equation. Ordering Provider: PEMA SAMAYOA R Report Released Date/Time: Jun 05, 2023 02:30 PM Reporting Lab: [place] [id number] Performing Lab: [place] [id number] COMPREHEN SIVE METABOLIC PANEL ALBUMIN [MASS/VOLUM E] IN SERUM OR PLASMA 4.1 g/dL 3.2 - 4.6 05/24 Specimen Type: PLASMA Comment: LDL REF RANGE: OPTIMAL: <100 mg/dL BORDERLINE HIGH: 130-159 mg/dL LDL HIGH: 160-189 mg/dL VERY HIGH: >=190 TRIG REF RANGE: NORMAL <150 mg/dL BORDERLINE HIGH: 150-199 mg/dL TRIG HIGH: 200-499 mg/dL VERY HIGH: >=500 mg/dL CREA eGFR was calculated using the CKD-EPI 2020 equation. Ordering Provider: PEMA SAMAYOA EX R Report Released Date/Time: Jun 05, 2023 02:30 PM Reporting Lab: [place] [id number] Performing Lab: [place] [id number] [place] [address] COMPREHEN SIVE METABOLIC PANEL ALKALINE PHOSPHATASE [ENZYMATIC ACTIVITY/VO LUME] IN SERUM OR PLASMA 89 U/L 46 - 116 05/24 Specimen Type: PLASMA Comment: LDL REF RANGE: OPTIMAL: <100 mg/dL BORDERLINE HIGH: 130-159 mg/dL LDL HIGH: 160-189 mg/dL VERY HIGH: >=190 TRIG REF RANGE: NORMAL <150 mg/dL BORDERLINE HIGH: 150-199 mg/dL TRIG HIGH: 200-499 mg/dL VERY HIGH: >=500 mg/dL CREA eGFR was calculated using the CKD-EPI 2020 equation. Ordering Provider: PEMA SAMAYOA Report Released Date/Time: Jun 05, 2023 02:30 PM Reporting Lab: [place] [id number] Performing Lab: [place] [id number] [place] [address] COMPREHEN SIVE METABOLIC PANEL ALANINE AMINOTRANSF ERASE [ENZYMATIC ACTIVITY/VO LUME] IN SERUM OR PLASMA 15 U/L 0 - 55 05/24 Specimen Type: PLASMA Comment: LDL REF RANGE: OPTIMAL: <100 mg/dL BORDERLINE HIGH: 130-159 mg/dL LDL HIGH: 160-189 mg/dL VERY HIGH: >=190 TRIG REF RANGE: NORMAL <150 mg/dL BORDERLINE HIGH: 150-199 mg/dL TRIG HIGH: 200-499 mg/dL VERY HIGH: >=500 mg/dL CREA eGFR was calculated using the CKD-EPI 2020 equation. Ordering Provider: PEMA SAMAYOA Report Released Date/Time: Jun 05, 2023 02:30 PM Reporting Lab: [place] [id number] Performing Lab: [address] COMPREHEN SIVE METABOLIC PANEL ASPARTATE AMINOTRANSF ERASE [ENZYMATIC ACTIVITY/VO LUME] IN SERUM OR PLASMA 23 U/L 5 - 34 05/24 Specimen Type: PLASMA Comment: LDL REF RANGE: OPTIMAL: <100 mg/dL BORDERLINE HIGH: 130-159 mg/dL LDL HIGH: 160-189 mg/dL VERY HIGH: >=190 TRIG REF RANGE: NORMAL <150 mg/dL BORDERLINE HIGH: 150-199 mg/dL TRIG HIGH: 200-499 mg/dL VERY HIGH: >=500 mg/dL CREA eGFR was calculated using the CKD-EPI 2020 equation. Ordering Provider: PEMA SAMAYOA Report Released Date/Time: Jun 05, 2023 02:30 PM Reporting Lab: [place] [id number] Performing Lab: [address] COMPREHEN SIVE METABOLIC PANEL UREA NITROGEN [MASS/VOLUM E] IN SERUM OR PLASMA 25 mg/dL 9 - 05/24 H Specimen Type: PLASMA Comment: LDL REF RANGE: OPTIMAL: <100 mg/dL BORDERLINE HIGH: 130-159 mg/dL LDL HIGH: 160-189 mg/dL VERY HIGH: >=190 TRIG REF RANGE: NORMAL <150 mg/dL BORDERLINE HIGH: 150-199 mg/dL TRIG HIGH: 200-499 mg/dL VERY HIGH: >=500 mg/dL CREA eGFR was calculated using the CKD-EPI 2020 equation. Ordering Provider: YAO,AL EX R Report Released Date/Time: Jun 05, 2023 02:30 PM Reporting Lab: [place] [id number] Performing Lab: [place] [phone] COMPREHEN SIVE METABOLIC PANEL CALCIUM [MASS/VOLUM E] IN SERUM OR PLASMA 9.5 mg/dL 8.5 - 10.1 05/24 Specimen Type: PLASMA Comment: LDL REF RANGE: OPTIMAL: <100 mg/dL BORDERLINE HIGH: 130-159 mg/dL LDL HIGH: 160-189 mg/dL VERY HIGH: >=190 TRIG REF RANGE: NORMAL <150 mg/dL BORDERLINE HIGH: 150-199 mg/dL TRIG HIGH: 200-499 mg/dL VERY HIGH: >=500 mg/dL CREA eGFR was calculated using the CKD-EPI 2020 equation. Ordering Provider: PEMA SAMAYOA R Report Released Date/Time: Jun 05, 2023 02:30 PM Reporting Lab: [place] [id number] Performing Lab: [place] [id number] [place] [address] COMPREHEN SIVE METABOLIC PANEL CREATININE [MASS/VOLUM E] IN SERUM OR PLASMA 1.4 mg/dL 0.7 - 1.3 05/24 H Specimen Type: PLASMA Comment: LDL REF RANGE: OPTIMAL: <100 mg/dL BORDERLINE HIGH: 130-159 mg/dL LDL HIGH: 160-189 mg/dL VERY HIGH: >=190 TRIG REF RANGE: NORMAL <150 mg/dL BORDERLINE HIGH: 150-199 mg/dL TRIG HIGH: 200-499 mg/dL VERY HIGH: >=500 mg/dL CREA eGFR was calculated using the CKD-EPI 2020 equation. Ordering Provider: PEMA SAMAYOA EX R Report Released Date/Time: Jun 05, 2023 02:30 PM Reporting Lab: [place] [id number] Performing Lab: [place] [phone] COMPREHEN SIVE METABOLIC PANEL CARBON DIOXIDE, TOTAL [MOLES/VOLU ME] IN SERUM OR PLASMA 28 mmol/L 05/24 Specimen Type: PLASMA Comment: LDL REF RANGE: OPTIMAL: <100 mg/dL BORDERLINE HIGH: 130-159 mg/dL LDL HIGH: 160-189 mg/dL VERY HIGH: >=190 TRIG REF RANGE: NORMAL <150 mg/dL BORDERLINE HIGH: 150-199 mg/dL TRIG HIGH: 200-499 mg/dL VERY HIGH: >=500 mg/dL CREA eGFR was calculated using the CKD-EPI 2020 equation. Ordering Provider: PEMA SAMAYOA R Report Released Date/Time: Jun 05, 2023 02:30 PM Reporting Lab: [place] [id number] Performing Lab: [place] [id number] [facility] COMPREHEN SIVE METABOLIC PANEL GLUCOSE [MASS/VOLUM E] IN SERUM OR PLASMA 101 mg/dL 74 - 100 05/24 H Specimen Type: PLASMA Comment: LDL REF RANGE: OPTIMAL: <100 mg/dL BORDERLINE HIGH: 130-159 mg/dL LDL HIGH: 160-189 mg/dL VERY HIGH: >=190 TRIG REF RANGE: NORMAL <150 mg/dL BORDERLINE HIGH: 150-199 mg/dL TRIG HIGH: 200-499 mg/dL VERY HIGH: >=500 mg/dL CREA eGFR was calculated using the CKD-EPI 2020 equation. Ordering Provider: PEMA SAMAYOA Report Released Date/Time: Jun 05, 2023 02:30 PM Reporting Lab: [place] [id number] Performing Lab: [place] [id number] [facility] COMPREHEN SIVE METABOLIC PANEL PROTEIN [MASS/VOLUM E] IN SERUM OR PLASMA 6.8 g/dL 6.4 - 8.3 05/24 Specimen Type: PLASMA Comment: LDL REF RANGE: OPTIMAL: <100 mg/dL BORDERLINE HIGH: 130-159 mg/dL LDL HIGH: 160-189 mg/dL VERY HIGH: >=190 TRIG REF RANGE: NORMAL <150 mg/dL BORDERLINE HIGH: 150-199 mg/dL TRIG HIGH: 200-499 mg/dL VERY HIGH: >=500 mg/dL CREA eGFR was calculated using the CKD-EPI 2020 equation. Ordering Provider: PEMA SAMAYOA Report Released Date/Time: Jun 05, 2023 02:30 PM Reporting Lab: [place] [id number] Performing Lab: [place] [id number] [facility] COMPREHEN SIVE METABOLIC PANEL SODIUM [MOLES/VOLU ME] IN SERUM OR PLASMA 137 mmol/L 136 - 145 05/24 Specimen Type: PLASMA Comment: LDL REF RANGE: OPTIMAL: <100 mg/dL BORDERLINE HIGH: 130-159 mg/dL LDL HIGH: 160-189 mg/dL VERY HIGH: >=190 TRIG REF RANGE: NORMAL <150 mg/dL BORDERLINE HIGH: 150-199 mg/dL TRIG HIGH: 200-499 mg/dL VERY HIGH: >=500 mg/dL CREA eGFR was calculated using the CKD-EPI 2020 equation. Ordering Provider: PEMA SAMAYOA Report Released Date/Time: Jun 05, 2023 02:30 PM Reporting Lab: [place] [id number] Performing Lab: [place] [id number] [place] [address] COMPREHEN SIVE METABOLIC PANEL CHLORIDE [MOLES/VOLU ME] IN SERUM OR PLASMA 102 mmol/L 98 - 107 05/24 Specimen Type: PLASMA Comment: LDL REF RANGE: OPTIMAL: <100 mg/dL BORDERLINE HIGH: 130-159 mg/dL LDL HIGH: 160-189 mg/dL VERY HIGH: >=190 TRIG REF RANGE: NORMAL <150 mg/dL BORDERLINE HIGH: 150-199 mg/dL TRIG HIGH: 200-499 mg/dL VERY HIGH: >=500 mg/dL CREA eGFR was calculated using the CKD-EPI 2020 equation. Ordering Provider: PEMA SAMAYOA Report Released Date/Time: Jun 05, 2023 02:30 PM Reporting Lab: [address] [id number] Performing Lab: [place] [id number] [facility] COMPREHEN SIVE METABOLIC PANEL BILIRUBIN.T OTAL [MASS/VOLUM E] IN SERUM OR PLASMA 0.4 mg/dL 0.2 - 1.2 05/24 Specimen Type: PLASMA Comment: LDL REF RANGE: OPTIMAL: <100 mg/dL BORDERLINE HIGH: 130-159 mg/dL LDL HIGH: 160-189 mg/dL VERY HIGH: >=190 TRIG REF RANGE: NORMAL <150 mg/dL BORDERLINE HIGH: 150-199 mg/dL TRIG HIGH: 200-499 mg/dL VERY HIGH: >=500 mg/dL CREA eGFR was calculated using the CKD-EPI 2020 equation. Ordering Provider: PEMA SAMAYOA R Report Released Date/Time: Jun 05, 2023 02:30 PM Reporting Lab: [place] [id number] Performing Lab: [place] [id number] [place] [address] SIVE METABOLIC PANEL POTASSIUM [MOLES/VOLU ME] IN SERUM OR PLASMA 5.1 mmol/L 3.5 - 5.1 05/24 Specimen Type: PLASMA Comment: LDL REF RANGE: OPTIMAL: <100 mg/dL BORDERLINE HIGH: 130-159 mg/dL LDL HIGH: 160-189 mg/dL VERY HIGH: >=190 TRIG REF RANGE: NORMAL <150 mg/dL BORDERLINE HIGH: 150-199 mg/dL TRIG HIGH: 200-499 mg/dL VERY HIGH: >=500 mg/dL CREA eGFR was calculated using the CKD-EPI 2020 equation. Ordering Provider: PEMA SAMAYOA R Report Released Date/Time: Jun 05, 2023 02:30 PM Reporting Lab: [place] [id number] Performing Lab: [place] [id number] [place], [place] [id number] METABOLIC PANEL ANION GAP IN SERUM OR PLASMA 12.0 mmol/L 10 - 20 05/24 Specimen Type: PLASMA Comment: LDL REF RANGE: OPTIMAL: <100 mg/dL BORDERLINE HIGH: 130-159 mg/dL LDL HIGH: 160-189 mg/dL VERY HIGH: >=190 TRIG REF RANGE: NORMAL <150 mg/dL BORDERLINE HIGH: 150-199 mg/dL TRIG HIGH: 200-499 mg/dL VERY HIGH: >=500 mg/dL CREA eGFR was calculated using the CKD-EPI 2020 equation. Ordering Provider: PEMA SAMAYOA R Report Released Date/Time: Jun 05, 2023 02:30 PM Reporting Lab: [place] [id number] Performing Lab: [place] [id number] COMPREHEN SIVE METABOLIC PANEL GLOMERULAR FILTRATION RATE/1.73 SQ M.PREDICTED [VOLUME RATE/AREA] IN SERUM, PLASMA OR BLOOD BY CREATININE- BASED FORMULA (CKD-EPI 2020) 51.0 mL/min 05/24 Specimen Type: PLASMA Comment: LDL REF RANGE: OPTIMAL: <100 mg/dL BORDERLINE HIGH: 130-159 mg/dL LDL HIGH: 160-189 mg/dL VERY HIGH: >=190 TRIG REF RANGE: NORMAL <150 mg/dL BORDERLINE HIGH: 150-199 mg/dL TRIG HIGH: 200-499 mg/dL VERY HIGH: >=500 mg/dL CREA eGFR was calculated using the CKD-EPI 2020 equation. Ordering Provider: PEMA SAMAYOA Report Released Date/Time: Jun 05, 2023 02:30 PM Reporting Lab: [place] [id number] Performing Lab: [address] CBC LEUKOCYTES [#/VOLUME] IN BLOOD BY AUTOMATED COUNT 6.2 10*3/u L 3.6 - 11.0 05/24 Specimen Type: BLOOD No comment entered. Ordering Provider: PEMA SAMAYOA Report Released Date/Time: Jun 05, 2023 02:30 PM Reporting Lab: [place] [id number] Performing Lab: [address] CBC ERYTHROCYTE S [#/VOLUME] IN BLOOD BY AUTOMATED COUNT 4.58 10*6/u L 4.47 - 5.83 05/24 Specimen Type: BLOOD No comment entered. Ordering Provider: PEMA SAMAYOA Report Released Date/Time: Jun 05, 2023 02:30 PM Reporting Lab: [place] [id number] Performing Lab: [address] CBC HEMOGLOBIN [MASS/VOLUM E] IN BLOOD 13.9 g/dL 13.6 - 17.4 05/24 Specimen Type: BLOOD No comment entered. Ordering Provider: PEMA SAMAYOA R Report Released Date/Time: Jun 05, 2023 02:30 PM Reporting Lab: [place] [id number] Performing Lab: [place] [id number] CBC HEMATOCRIT [VOLUME FRACTION] OF BLOOD BY AUTOMATED COUNT 42.4 40.0 - 51.0 05/24 Specimen Type: BLOOD No comment entered. Ordering Provider: PEMA SAMAYOA Report Released Date/Time: Jun 05, 2023 02:30 PM Reporting Lab: [place] [id number] Performing Lab: [place] [id number] [place] [address] CBC MCV [ENTITIC VOLUME] BY AUTOMATED COUNT 92.6 fL 80.0 - 96.0 05/24 Specimen Type: BLOOD No comment entered. Ordering Provider: PEMA SAMAYOA Report Released Date/Time: Jun 05, 2023 02:30 PM Reporting Lab: [place] [id number] Performing Lab: [place] [id number] CBC MCH [ENTITIC MASS] BY AUTOMATED COUNT 30.4 pg 27.0 - 31.0 05/24 Specimen Type: BLOOD No comment entered. Ordering Provider: PEMA SAMAYOA Report Released Date/Time: Jun 05, 2023 02:30 PM Reporting Lab: [place] [id number] Performing Lab: [place] [id number] CBC MCHC [MASS/VOLUM E] BY AUTOMATED COUNT 32.9 g/dL 31.5 - 36.5 05/24 Specimen Type: BLOOD No comment entered. Ordering Provider: PEMA SAMAYOA Report Released Date/Time: Jun 05, 2023 02:30 PM Reporting Lab: [place] [id number] Performing Lab: [place] [id number] [place] [address] CBC PLATELETS [#/VOLUME] IN BLOOD BY AUTOMATED COUNT 197 10*3/u L 150 - 400 05/24 Specimen Type: BLOOD No comment entered. Ordering Provider: PEMA SAMAYOA Report Released Date/Time: Jun 05, 2023 02:30 PM Reporting Lab: [address] [phone] Performing Lab: [address] [id number] [place] [address] CBC LYMPHOCYTES /100 LEUKOCYTES IN BLOOD BY AUTOMATED COUNT 29.3 21.0 - 51.0 05/24 Specimen Type: BLOOD No comment entered. Ordering Provider: PEMA SAMAYOA Report Released Date/Time: Jun 05, 2023 02:30 PM Reporting Lab: [address] [phone] Performing Lab: [place] [phone] CBC MONOCYTES/1 00 LEUKOCYTES IN BLOOD BY AUTOMATED COUNT 6.5 4.0 - 8.0 05/24 Specimen Type: BLOOD No comment entered. Ordering Provider: PEMA SAMAYOA Report Released Date/Time: Jun 05, 2023 02:30 PM Reporting Lab: [address] [phone] Performing Lab: [phone] [place] [address] CBC NUCLEATED ERYTHROCYTE S/100 LEUKOCYTES [RATIO] IN BLOOD BY MANUAL COUNT 0.0 /100{W BCs} 05/24 Specimen Type: BLOOD No comment entered. Ordering Provider: PEMA SAMAYOA Report Released Date/Time: Jun 05, 2023 02:30 PM Reporting Lab: [address] [phone] Performing Lab: [address] [phone] [facility] CBC ERYTHROCYTE DISTRIBUTIO N WIDTH [RATIO] BY AUTOMATED COUNT 13.8 11.2 - 15.8 05/24 Specimen Type: BLOOD No comment entered. Ordering Provider: PEMA SAMAYOA Report Released Date/Time: Jun 05, 2023 02:30 PM Reporting Lab: [address] [address] Performing Lab: [address] [address] [facility] CBC NEUTROPHILS /100 LEUKOCYTES IN BLOOD BY AUTOMATED COUNT 62.3 54.0 - 78.0 05/24 Specimen Type: BLOOD No comment entered. Ordering Provider: PEMA SAMAYOA Report Released Date/Time: Jun 05, 2023 02:30 PM Reporting Lab: [place] [id number] Performing Lab: [place] [phone] CBC EOSINOPHILS /100 LEUKOCYTES IN BLOOD BY AUTOMATED COUNT 1.2 0.0 - 3.0 05/24 Specimen Type: BLOOD No comment entered. Ordering Provider: PEMA SAMAYOA R Report Released Date/Time: Jun 05, 2023 02:30 PM Reporting Lab: [place] [id number] Performing Lab: [place] [phone] CBC BASOPHILS/1 00 LEUKOCYTES IN BLOOD BY AUTOMATED COUNT 0.7 0.0 - 3.0 05/24 Specimen Type: BLOOD No comment entered. Ordering Provider: PEMA SAMAYOA Report Released Date/Time: Jun 05, 2023 02:30 PM Reporting Lab: [place] [id number] Performing Lab: [place] [phone] CBC LYMPHOCYTES [#/VOLUME] IN BLOOD BY AUTOMATED COUNT 1.8 10*3/u L 0.8 - 5.0 05/24 Specimen Type: BLOOD No comment entered. Ordering Provider: PEMA SAMAYOA Report Released Date/Time: Jun 05, 2023 02:30 PM Reporting Lab: [place] [id number] Performing Lab: [place] [phone] CBC NEUTROPHILS [#/VOLUME] IN BLOOD 3.9 10*3/u L 1.9 - 8.6 05/24 Specimen Type: BLOOD No comment entered. Ordering Provider: PEMA SAMAYOA R Report Released Date/Time: Jun 05, 2023 02:30 PM Reporting Lab: [place] [id number] Performing Lab: [place] [id number] [facility] CBC BASOPHILS [#/VOLUME] IN BLOOD BY AUTOMATED COUNT 0.0 10*3/u L 0.0 - 0.3 05/24 Specimen Type: BLOOD No comment entered. Ordering Provider: PEMA SAMAYOA Report Released Date/Time: Jun 05, 2023 02:30 PM Reporting Lab: [place] [id number] Performing Lab: [place] [id number] [place] [address] CBC MONOCYTES [#/VOLUME] IN BLOOD BY AUTOMATED COUNT 0.4 10*3/u L 0.1 - 0.9 05/24 Specimen Type: BLOOD No comment entered. Ordering Provider: PEMA SAMAYOA Report Released Date/Time: Jun 05, 2023 02:30 PM Reporting Lab: [place] [phone] Performing Lab: [place] [id number] [place] [address] CBC EOSINOPHILS [#/VOLUME] IN BLOOD BY AUTOMATED COUNT 0.1 10*3/u L 0.0 - 0.3 05/24 Specimen Type: BLOOD No comment entered. Ordering Provider: PEMA SAMAYOA Report Released Date/Time: Jun 05, 2023 02:30 PM Reporting Lab: [place] [id number] Performing Lab: [place] [phone] CBC PLATELET MEAN VOLUME [ENTITIC VOLUME] IN BLOOD BY AUTOMATED COUNT 8.8 fL 7.4 - 11.4 05/24 Specimen Type: BLOOD No comment entered. Ordering Provider: PEMA SAMAYOA Report Released Date/Time: Jun 05, 2023 02:30 PM Reporting Lab: [place] [id number] Performing Lab: [place] [id number] [facility] Vital Signs Combined list of inpatient and outpatient Vital Signs from Department of Defense and Veterans Affairs, ranging from 12 months to all on record, depending upon the facility. Vital Sign Value Date Comments Source SYSTOLIC BLOOD PRESSURE 157 05/31/2024 13:20:51 [facility] DIASTOLIC BLOOD PRESSURE 91 05/31/2024 13:20:51 [facility] PULSE OXIMETRY 99 05/31/2024 13:20:51 [facility] WEIGHT 218 05/31/2024 13:20:51 [facility] BMI 33 kg/m2 05/31/2024 13:20:51 [facility] PAIN 0 05/31/2024 13:20:51 [facility] TEMPERATURE 97.8 05/31/2024 13:20:51 [facility] PULSE 82 05/31/2024 13:20:51 [facility] RESPIRATION 16 05/31/2024 13:20:51 [facility] Encounters Combined list of: 1) Encounters from Department of [facility] facilities going backup to the last 18 months, not all [place] inpatient encounters are included; 2) Encounters from the Department of [facility] facilities going backup to 280 months. Location Location Details Encounter Type Encounter Number Reason For Visit Attending Provider ADM Date DC Date Status Disposition Source [facility] Outpatient Encounter [id number] 05/11 [facility] EXAM BOTH EARS [id number] Diagnos is: ICD-10- CM H90.3 Sensori neural hearing loss, bilater al PAT GARZA A 05/24 [facility] Outpatient Encounter [id number] PAT GARZA A 05/24 [facility] Outpatient Encounter [id number] [facility] Outpatient Encounter [id number] 05/31 [facility] [place] [facility] OFF[facility] O/P EST MOD 30 MIN [id number] Diagnos is: ICD-10- CM E11.9 Type 2 diabete s mellitu s without complic ations YAO,A MAURICIO R 05/31 [facility] EVALUATION [id number] Diagnos is: ICD-10- CM Z46.1 Encount er for fitting and adjustm ent of hearing aid DMITRY JACKSON 07/28 [facility] Outpatient Encounter [id number] 04/03 [facility] Outpatient Encounter [id number] 04/03 [facility] Social History Combined list of available smoking, tobacco, and other social history from Department of Defense and Veterans Affairs facilities. Social History Type Response Date Comment Sourc e Tobacco smoking status [facility] VA-TOBACCO FORMER USER 05/31/2024 [facility] History of tobacco use [place]-TOBACCO QUIT 1 5 YRS OR MORE 05/31/2024 [facility] History of tobacco use VA-TOBACCO FORMER USER 06/05/2023 [facility] History of tobacco use VA-TOBACCO QUIT < 1 YEAR 07/12/2018 [facility] History of tobacco use SMOKING CESSATION NO 08/28/2017 [facility] History of tobacco use CURRENT TOBACCO USER 12/12/2015 [facility] History of tobacco use CURRENT TOBACCO USER 07/05/2014 [facility] History of tobacco use CURRENT TOBACCO USER 03/22/2013 [facility] History of tobacco use CURRENT TOBACCO USER 04/05/2012 [facility] History of tobacco use CURRENT TOBACCO USER 02/18/2011 [facility] History of tobacco use CURRENT TOBACCO USER 02/08/2010 [facility] History of tobacco use CURRENT TOBACCO USER 01/23/2009 [facility] History of tobacco use CURRENT TOBACCO USER 12/28/2007 [facility] History of tobacco use CURRENT TOBACCO USER 11/30/2007 [facility] History of tobacco use CURRENT TOBACCO USER 11/05/2006 [facility] History of tobacco use TOBACCO CURRENT USER 07/24/2006 [facility] History of tobacco use TOBACCO CURRENT USER 06/25/2005 [facility] History of tobacco use TOBACCO CURRENT USER 05/28/2004 [facility] History of tobacco use TOBACCO FORMER US ER MORE 12 MONTHS 07/04/2003 [facility] History of tobacco use TOBACCO CURRENT USER 12/20/2002 [facility] History of tobacco use TOBACCO FORMER US ER MORE 12 MONTHS 11/26/2001 [facility] History of tobacco use TOBACCO FORMER US ER MORE 12 MONTHS 10/28/2000 [facility] Plan of Care List of future care activities from Department of Veterans Affairs facilities. Additional future care activities may be listed in the Assessment and Plan section. Date/Time Care Activity Care Activity Detail Facili ty 05/16/2025 AMBULATORY - NONE AMBULATORY - NONE [facility]
--- OUTSIDE RECORDS SUMMARY | 2025-04-25 12:47 | XMS_ITS | Patient Health Record ---
Author Organization [facility] [place] Address [address] [place] [address] Care Team Providers Care Rn Utilization Management Um Name Role Phone Omid Stark Primary Care Provider [phone] [place], Yasmin Unavailable [phone] Allergies Allergen (clinical drug ingredient) Drug/Non Drug Allergy documented on EMR Reaction Allergy Type Onset Date Status celecoxib CeleBREX Unknown Drug Allergy Active atorvastatin Lipitor Unknown Drug Allergy Acti ve Results Component Value Reference Range Notes BNP Reviewed date:02/25/2025 01:48:46 PM Interpretation: Performing Lab: Notes/Report: [facility] , NT Pro B Type Natriuretic Pept 1799.0 <=1800.0 pg/mL Performing Lab: see note ML - [facility] LB CBC AUTO DIFF Reviewed date:02/25/2025 01:48:45 PM Interpretation: Performing Lab: Notes/Report: [facility] , White Blood Count 6.7 4.0-11.0 10 3/uL Red Blood Count 4.70 4.70-6.10 10 6/uL Hemoglobin 14.1 14.0-18.0 g/dL Hematocrit 43.2 42.0-54.0 % Mean Corpuscular Volume 91.9 80.0-94.0 fL Mean Corpuscular Hemoglobin 30.0 25.9-34.0 pg Mean Corpuscular HGB Conc 32.6 29.9-35.2 g/dL Red Cell Distribution Width 13.2 11.0-15.0 % Platelet Count 193 150-450 10 3/uL Mean Platelet Volume 9.4 9.5-13.5 fL Neutrophils Percent Auto 60.5 43.0-75.0 % Lymphocytes Percent Auto 28.2 20.5-60.0 % Monocytes Percent Auto 8.1 1.7-12.0 % Eosinophils Percent Auto 1.8 0.9-7.0 % Basophils Percent Auto 1.0 0.2-2.0 % Immature Granulocytes Pct Auto 0.4 0.0-0.5 % Neutrophils Absolute Auto 4.1 1.4-6.5 10 3/uL Lymphocytes Absolute Auto 1.9 1.2-3.8 10 3/uL Monocytes Absolute Auto 0.5 0.3-0.8 10 3/uL Eosinophils Absolute Auto 0.1 0.0-0.7 10 3/uL Basophils Absolute Auto 0.1 0.0-0.1 10 3/uL Immature Granulocytes Abs Auto 0.03 0.00-0.03 10 3/uL Performing Lab: see note ML - [facility] FREE T3 Reviewed date:02/25/2025 01:48:45 PM Interpretation: Performing Lab: Notes/Report: [facility] , Free T3 2.06 2.18-3.98 pg/mL Performing Lab: see note - [facility] GLYCOHEMOGLOBIN A1C Reviewed date:02/25/2025 01:48:45 PM Interpretation: Performing Lab: Notes/Report: [facility] , Glycohemoglobin A1C 5.9 4.5-6.2 % ACTION SUGGESTED ADA THERAPEUTIC TARGET < 7.0 > 7.0 ADA RECOMMENDED LIMIT 4.0 - 6.0 Estimated Average Glucose 123 Performing Lab: see note - [facility] INSULIN Reviewed date:02/26/2025 12:10:22 PM Interpretation: Performing Lab: Notes/Report: [facility] , Insulin 3.3 2.6-24.9 uIU/mL [address] [place], [place] [id number] Environmental Engineering Professor: James Sanders PhD, Phone: [phone] Performed at: [facility] Performing Lab: see note - [facility] LB LIPID PROFILE Reviewed date:02/25/2025 01:48:45 PM Interpretation: Performing Lab: Notes/Report: [facility] , Triglycerides 52 <=150 mg/dL Cholesterol 148 <=200 mg/dL HDL Cholesterol 62 40-60 mg/dL > or =60 mg/dl - LOW CARDIOVASCULAR RISK <40 mg/dl - HIGH CARDIOVASCULAR RISK LDL Cholesterol Calculated 76.0 160-189 mg/dl HIGH <100 mg/dl OPTIMAL 130-159 mg/dl BORDERLINE HIGH 100-129 mg/dl NEAR OR ABOVE OPTIMAL >190 mg/dl VERY HIGH VLDL CHOLESTEROL 10.4 Chol HDL Ratio 2.4 3.3 - 4.4 LOW RISK 4.4 - 7.1 AVERAGE RISK 7.1 - 11.0 MODERATE RISK >11.0 HIGH RISK Performing Lab: see note - [facility] PROF 14(COMP METB) Reviewed date:02/25/2025 01:48:45 PM Interpretation: Performing Lab: Notes/Report: [facility] , Sodium 139 136-145 mmol/L Potassium 4.8 3.5-5.1 mmol/L Chloride 100 98-107 mmol/L Carbon Dioxide 33.4 21.0-32.0 mmol/L Anion Gap 10.4 Glucose 79 74-106 mg/dL Blood Urea Nitrogen 26.0 7.0-18.0 mg/dL Creatinine 1.12 0.70-1.30 mg/dL Estimated GFR ( Trudi >60 >=60 mL/min/1.73m 2 Estimated GFR (Non- Jolie >60 >=60 mL/min/1.73m 2 BUN Creatinine Ratio 23.2 Calcium 8.6 8.5-10.1 mg/dL Bilirubin Total 0.5 0.2-1.0 mg/dL Aspartate Amino Transferase 19 15-37 U/L Alanine Aminotransferase 21 16-63 U/L Alkaline Phosphatase 91 46-116 U/L Total Protein 6.2 6.4-8.2 g/dL Albumin Level 3.4 3.4-5.0 g/dL Globulin 2.8 Albumin Globulin Ratio 1.2 Performing Lab: see note - [facility] LB PSA SCREENING Reviewed date:02/25/2025 01:48:46 PM Interpretation: Performing Lab: Notes/Report: [facility] , Prostate Specific Antigen Scrn 0.18 <=4.00 ng/mL Performing Lab: see note - [facility] LB T4 Reviewed date:02/25/2025 01:48:46 PM Interpretation: Performing Lab: Notes/Report: [facility] , T4 Thyroxine 5.40 4.50-12.10 ug/dL Performing Lab: see note ML - [facility] LB TSH Reviewed date:02/25/2025 01:48:46 PM Interpretation: Performing Lab: Notes/Report: [facility] , Thyroid Stimulating Hormone 2.758 0.358-3.740 uIU/mL Performing Lab: see note ML - [facility] LB URIC ACID SERUM Reviewed date:02/25/2025 01:48:46 PM Interpretation: Performing Lab: Notes/Report: [facility] , Uric Acid 3.4 3.5-7.2 mg/dL Performing Lab: see note ML - [facility] LB Occult Blood* Reviewed date:02/27/2025 08:23:15 PM Interpretation: Performing Lab: Notes/Report: [facility] , Occult Blood Positive Performing Lab: see note ML - [facility] LB CA echo doppler complete Reviewed date:01/24/2025 08:43:09 PM Interpretation: Performing Lab: Notes/Report: Source Facility: [place] [address] Cardiology Report Signed Patient: DYLON FRANCIS MR#: [id number] : 1945 Acct:[id number] Age/Sex: 79 / M ADM Date: 01/24/25 Loc: CARD Attending Dr: EDUARD HOPSON Ordering Physician: EDUARD HOPSON Date of Service: 01/24/25 Procedure(s): CA echo doppler complete Accession Number(s): [id number] cc: John Stark M.D.; EDUARD HOPSON Patient Name: DYLON FRANCIS MR#: [id number] : 1945 Exam Date: 01/24/2025 Ordering Doctor: [...] HOPSON Signed By: 01/24/251828 DD/ 27 TD/TT: Sustainability Engineer: [place] [address] Cardiology Report Signed Patient: ANGELLA FRANCIS MR#: [id number] : 1945 Acct:[id number] Age/Sex: 79 / M ADM Date: 01/24/25 Loc: CARD Attending Dr: EDUARD HOPSON Ordering Physician: EDUARD HOPSON Date of Service: 01/24/25 Procedure(s): CA ech o doppler complete Accession Number(s): [id number] cc: John Stark M.D. ; EDUARD HOPSON Patient Name: DYLON FRANCIS MR#: [id number] : 1945 Exam Date: 01/24/2025 Ordering Doctor: [...] LEFT ATRIUM: Moderat e dilatation. RIGHT ATRIUM: Margaret l chamber size. RIGHT VENTRICLE: Nor mal chamber [...] HOPSON Signed By: 01/24/251828 DD/ 27 TD/TT: Sustainability Engineer: TRACIE echo doppler complete Reviewed date:08/02/2024 07:04:33 PM Interpretation: Performing Lab: Notes/Report: Source Facility: [place] [address] Cardiology Report Signed Patient: DYLON FRANCIS MR#: [id number] : 1945 Acct:[id number] Age/Sex: 78 / M ADM Date: 08/02/24 Loc: CARD Attending Dr: EDUARD HOPSON Ordering Physician: EDUARD HOPSON Date of Service: 08/02/24 Procedure(s): CA echo doppler complete Accession Number(s): [id number] cc: John Stark M.D.; EDUARD HOPSON Patient Name: DYLON FRANCIS MR#: [id number] : 1945 Exam Date: 08/02/2024 Ordering Doctor: [...] HOPSON Signed By: 08/02/241851 DD/ 50 TD/TT: Sustainability Engineer: [place] [address] Cardiology Report Signed Patient: ANGELLA FRANCIS MR#: [id number] : 1945 Acct:[id number] Age/Sex: 78 / M ADM Date: 08/02/24 Loc: CARD Attending Dr: EDUARD HOPSON Ordering Physician: EDUARD HOPSON Date of Service: 08/02/24 Procedure(s): CA ech o doppler complete Accession Number(s): [id number] cc: John Stark M.D. ; EDUARD HOPSON Patient Name: DYLON FRANCIS MR#: [id number] : 1945 Exam Date: 08/02/2024 Ordering Doctor: [...] HOPSON Signed By: 08/02/241851 DD/ 50 TD/TT: Sustainability Engineer: PROF DAVIDE Wilkins ([facility]) Reviewed date:06/02/2024 06:48:00 PM Interpretation: Performing Lab: Notes/Report: [facility] , Sodium 136 136-145 mmol/L Potassium 4.5 3.5-5.1 mmol/L Chloride 101 98-107 mmol/L Carbon Dioxide 33.3 21.0-32.0 mmol/L Anion Gap 6.2 Glucose 79 74-106 mg/dL Blood Urea Nitrogen 22.0 7.0-18.0 mg/dL Creatinine 1.18 0.70-1.30 mg/dL Estimated GFR ( Trudi >60 >=60 Estimated GFR (Non- Jolie 59 >=60 BUN Creatinine Ratio 18.6 Calcium 9.2 8.5-10.1 mg/dL Performing Lab: see note ML - [facility] LB Reason For Referral Diagnosis 1 Nevus (D22.9) Referral Organization [facility] [place] Referring Provider First Name Omid Referring Provider Last Name Lincoln Referring Provider Speciality Family Med laura Referred Provider Fernandez Feldman Referred Provider Specialty General Surg lamine Referral Priority Routine Medications Medication SIG (Take, Route, Frequency, Duration) Notes Start Date End Date Status Omeprazole 40 MG 1 capsule 30 minutes before morning meal Orally Once a day for 90 days Active Carvedilol 6.25 MG 3 tablet with food O rally Twice a day Active Temazepam 30 MG 1 capsule at bedtime as needed Orally dx G47.00 Once a day for 30 days 04/24/2025 Active Colace 100 MG 1 capsule as needed Orally Once a day Active Spironolactone 25 MG 1/2 tablet Orally o nce a day 06/09/2024 Active Farxiga 10 MG 1 tablet Orally Once a day 06/09/2024 Active Warfarin Sodium 5 MG 1 tablet Orally onc e daily for 90 days Active Ferrous Sulfate 325 (65 Fe) MG 1 tablet Orally BID Active Warfarin Sodium 7.5 MG 1 tablet Orally O nce a day for 90 days Active Entresto 24-26 MG 1 tablet Orally Twic e a day 06/09/2024 Active Ezetimibe 10 MG 1 tablet on hold Ora lly Once a day Active Vitamin D3 50 MCG (1999 UT) 1 capsule Or ally Once a day Active Melatonin 10 MG 2 Orally Q HS Active Aspirin Adult Low Dose 81 MG 1 tablet Orally Once a day 03/02/2024 Active Amitriptyline HCl 25 MG TAKE 1 TABLET BY MOUTH EVERYDAY AT BEDTIME for 90 Active Isosorbide Mononitrate ER 30 MG 1 tablet in the morning Orally Once a day Active Leqvio 284 MG/1.5ML as directed Subcutan eous every 6 months 06/09/2024 Active Immunizations Vaccine Route Administration Date Status Comme nts Talentwire Syringe Pre-Filled 30 mcg/0.3 mL Unknown 06/30/2023 Administered Talentwire Syringe Pre-Filled 30 mcg/0.3 mL Unknown 05/31/2024 Administered Flu, Fluad ([id number]) (74929) 65 yrs+, single-dose syringe IM Intramuscular 06/15/2023 [...] ast year? No Points 0 Interpretation Negative AUDIT-C (Standard) Question Answer Notes Did you have a drink containing alcohol in the p ast year? No Points 0 Interpretation Negative Problems Problem Type SNOMED Code ICD Code Onset Dates Problem Status W/U Status Risk Notes Problem 64544205 Type 2 diabetes mellitus with diabetic neuropathy, unspecified (E11.40) Active confirmed Problem 236430225 Other insomnia (G47.09) Active confirmed Problem Information [...] confirmed Problem Information temporarily unavailable History of LA (myocardial infarction) (I25.2) Active confirmed Problem Information [...] Rate 16 /min 05/19/2024 Blood pressure diastolic 60 mm Hg 02/20/2025 Oximetry 98 % 09/08/2024 Height 70 in 02/20/2025 Blood pressure systolic 110 mm Hg 02/20/2025 Weight 211 lbs 02/20/2025 BMI 30.27 kg/m2 02/20/2025 Encounters Encounter Location Date Provider Diagnosis [facility] [address] [place] [place] [address] 06/09/2024 Omid Hoy Hypertension I10 and Cat scratch W55.03XA [facility] ([facility]) [address] [place] [address] [place] [address] 05/19/2024 Yasmin Lubin Diabetes mellitus with neuropathy E11.40 ; Pain in left toe(s) M79.675 and Pain in right toe(s) M79.674 [facility] ([facility]) [address] [place] [address] [place] [address] 09/08/2024 Yasmin Lubin Diabetes mellitus with neuropathy E11.40 ; Pain in right toe(s) M79.674 and Pain in left toe(s) M79.675 [facility] [address] [facility] [place] [address] 02/20/2025 Omid Hoy Fatigue R53.83 ; Hypertension I10 ; Diabetes mellitus with neuropathy E11.40 ; Premature ventricular contraction I49.3 ; Diastolic HF (heart failure) I50.30 ; Obstructive sleep apnea G47.[address] [facility] [address] [facility] [place] [address] 03/01/2025 Omid Hoy Other insomnia G47.09 [facility] [address] [facility] [place] [address] 03/23/2025 Omid Hoy Fatigue R53.83 [facility] [address] [facility] [place] [facility] [place] [address] 04/24/2025 Omid Hoy Fatigue R53.83 [facility] [address] [facility] [place] [facility] [place] [address] 04/25/2025 Omid Hoy Fatigue R53.83 [facility] [address] [facility] [place] [facility] [place] [address] 11/21/2024 Omid Hoy Other insomnia G47.09 [facility] [address] [facility] [place] [address] 12/21/2024 Omid Hoy Other insomnia G47.09 [facility] [address] [facility] [place] [facility] [place] [address] 01/23/2025 Omid Hoy Other insomnia G47.09 [facility] [address] [facility] [place] [address] 02/20/[address] [facility] [address] [facility] [place] [address] 02/25/[address] [facility] [address] [facility] [place] [address] 02/27/2025 Omid Hoy [facility] [address] [place] [address] 07/22/2024 Omid Hoy Other insomnia G47.09 [facility] [address] [facility] [place] [address] 08/02/[address] [facility] [address] [facility] [place] [address] 08/10/2024 Omid Hoy [facility] [address] [place] [address] 08/23/2024 Omid Hoy Other insomnia G47.09 [facility] [address] [facility] [place] [address] 09/19/2024 Omid Hoy Other insomnia G47.09 [facility] [address] [facility] [place] [address] 10/17/2024 Omid Hoy Other insomnia G47.09 [facility] [address] [place] [address] 04/25/2024 Omid Hoy Other insomnia G47.09 [facility] [address] [place] [address] 05/24/2024 Omid Hoy [facility] [address] [place] [address] 05/24/2024 Omid Hoy Other insomnia G47.09 [facility] [address] [facility] [place] [address] 05/26/2024 Omid Hoy [facility] [address] [place] [address] 06/22/2024 Omid Hoy Other insomnia G47.09 Assessments Encounter Date Diagnosis (ICD Code) Assessment Notes Treatment Notes Treatment Clinical Notes Section Notes 02/20/2025 Premature ventricular contraction (ICD-10 - I49.3) 02/20/2025 Diastolic HF (heart failure) (ICD-10 - I50.30) 04/25/2024 Other insomnia (ICD-10 - G47.09) 05/24/2024 Other insomnia (ICD-10 - G47.09) 06/22/2024 Other insomnia (ICD-10 - G47.09) 07/22/2024 Other insomnia (ICD-10 - G47.09) 08/23/2024 Other insomnia (ICD-10 - G47.09) 09/19/2024 Other insomnia (ICD-10 - G47.09) 10/17/2024 Other insomnia (ICD-10 - G47.09) 11/21/2024 Other insomnia (ICD-10 - G47.09) 12/21/2024 Other insomnia (ICD-10 - G47.09) 01/23/2025 Other insomnia (ICD-10 - G47.09) 03/01/2025 Other insomnia (ICD-10 - G47.09) 03/23/2025 Fatigue (ICD-10 - R53.83) 04/24/2025 Fatigue (ICD-10 - R53.83) 04/25/2025 Fatigue (ICD-10 - R53.83) 05/19/2024 Pain in left toe(s) (ICD-10 - M79.675) 05/19/2024 Diabetes mellitus with neuropathy (ICD-10 - [...] examination today. He may follow-up as needed. 06/09/2024 Hypertension (ICD-10 - I10) 06/09/2024 Cat scratch (ICD-10 - W55.03XA) 09/08/2024 Pain in right toe(s) (ICD-10 - M79.674) 09/08/2024 Diabetes mellitus with neuropathy (ICD-10 - [...] year or as needed for nail care. 02/20/2025 Fatigue (ICD-10 - R53.83) 02/20/2025 Hypertension (ICD-10 - I10) stabel here 02/20/2025 Diabetes mellitus with neuropathy (ICD-10 - E11.40) 05/19/2024 Pain in right toe(s) (ICD-10 - M79.674) 02/20/2025 Obstructive sleep apnea (ICD-10 - G47.33) needs meds filled 09/08/2024 Pain in left toe(s) (ICD-10 - M79.675) 02/20/2025 Nevus (ICD-10 - D22.9) Plan Of Treatment Pending Test Test Name Order Date CMP (COMPLETE METABOLIC PANEL) 3 HEMOGLOBIN A1C (GLYCO) 03/11/2023 HEMOGLOBIN A1C (GLYCO) 02/20/2025 INSULIN, TOTAL 02/20/2025 LIPID PANEL (CHOL/TRIG/HDL/LDL) 02/21/20 25 LIPID PANEL (CHOL/TRIG/HDL/LDL) 03/11/20 23 CBC WITH DIFF 03/11/2023 PSA, PROSTATE-SPECIFIC ANTIGEN 3 URIC ACID 02/20/2025 STOOL OCCULT BLOOD 02/20/2025 CBC AUTO DIFF 04/25/2025 FERRITIN 04/25/2025 IRON 04/25/2025 PROF 14(COMP METB) 04/25/2025 THYROID PANEL (T4/TSH/FREE T3) 5 THYROID PANEL (T4/TSH/FREE T3) 3 PSA, SCREENING 02/20/2025 CMP (COMP MET SMITH) w/eGFR CKD-EPI 2024 CBC WITH DIFF 02/20/2025 Insurance Providers Payer Name Payer Address Payer Phone Subscriber Number Group Number Insured Name Patient Relationship to Insured Coverage Start Date Coverage End Date MEDICARE [employer] [address] [address] [facility] [place] [id number] Dylon Francis Self - patient is the insured [facility] [address] [address] [place], [place] [id number] [phone] [id number] Dylon Francis Self - patient is the insured Medical [...] vascular implants and grafts Z95.828 History of LA (myocardial infarction) I2 5.2 Obstructive sleep apnea G47.33 S/P coronary artery stent placement Z95. 5 Diabetes mellitus E11.9 Hypertension I10 Insomnia G47.00 Sjoegren syndrome M35.00 Diverticulitis K57.92 Low back pain, unspecified M54.50 Pulmonary embolism I26.99 Arterial occlusive disease I74.9 Surgical History Surgery Date(Month/Year) Heart Cath w/ stent placement 06/2017 Pacemaker Placement Tonsillectomy 05/2017 TURP Colon resection Cataract Extraction Back Surgery Abdominal Surgery Matt Filter Placement
--- OUTSIDE RECORDS SUMMARY | 2025-04-25 12:47 | XMS_ITS | Clinical Summary ---
Author Organization [facility] Address [address] [place] [address] Care Team Providers Care Cement Paver Name Role Phone John Stark MD Primary Care Provider [phone] Allergies Active Allergy Reactions Criticality Noted Date Comments Fhhfakt-Lqy-Xse Reductase Inhibitors Rash 10/17/2016 Medications aspirin, enteric [...] Vaccine (1 - 1-dose 75+ series) 12/09/2018 Advance Directive Discussion 09/07/2024 Influenza Vaccine (#1) 2025 Insurance MEDICARE [facility] MEDICARE [employer] Care Teams Cement Paver Relationship Specialty Start Date End Date John Stark MD PCP - General Family Medicine 09/22/16
--- OUTSIDE RECORDS SUMMARY | 2025-04-25 12:47 | XMS_ITS | Clinical Summary ---
Author Organization [employer] [facility] Address [id number] [address] [place] [address] Care Team Providers Care Small Arms Repairer Name Role Phone Unavailable Primary Care Provider [...]
[2025-04-25 13:05] LABS: Hematocrit 43.9 % (42.0-54.0); Hemoglobin 14.5 g/dL (14.0-18.0); Immature Granulocytes Abs Auto 0.02 10^3/uL (0.00-0.03); Immature Granulocytes Pct Auto 0.3 % (0.0-0.5); Lymphocytes Absolute Auto 1.5 10^3/uL (1.2-3.8); Mean Corpuscular HGB Conc 33.0 g/dL (29.9-35.2); Mean Corpuscular Hemoglobin 30.7 pg (25.9-34.0); Mean Corpuscular Volume 93.0 fL (80.0-94.0); Platelet Count 195 10^3/uL (150-450); Red Blood Count 4.72 10^6/uL (4.70-6.10); White Blood Count 6.4 10^3/uL (4.0-11.0)
[2025-04-25 13:55] LABS: Alanine Aminotransferase 24 U/L (16-63); Albumin Globulin Ratio 1.2; Albumin Level 3.8 g/dL (3.4-5.0); Alkaline Phosphatase 78 U/L (46-116); Anion Gap 9.2; Aspartate Amino Transferase 21 U/L (15-37); Blood Urea Nitrogen 27.0 mg/dL (7.0-18.0); Calcium 8.9 mg/dL (8.5-10.1); Carbon Dioxide 32.3 mmol/L (21.0-32.0); Chloride 104 mmol/L (98-107); Estimated GFR (African America >60 (>=60 mL/min/1.73m^2); Estimated GFR (Non-African Ame 56 (>=60 mL/min/1.73m^2); Globulin 3.3 g/dL; Glucose 92 mg/dL (74-106); Potassium 4.5 mmol/L (3.5-5.1); Sodium 141 mmol/L (136-145); Total Protein 7.1 g/dL (6.4-8.2)
[2025-04-25 14:46] LABS: Iron 48.0 ug/dL (65.0-175.0)
[2025-04-25 17:11] LABS: Ferritin 1320.0 ng/mL (26.0-388.0)
== END 2025-04-25 12:46 | disposition home or self-care (01) ==
LOC: LAB 12:45
PROVIDERS: PCP Family Medicine; Visit Provider Family Medicine
DX: Z51.81 Encounter for therapeutic drug level monitoring (principal); Z79.01 Long term (current) use of anticoagulants; R53.83 Other fatigue
CPT/HCPCS: 36415; 80053; 82728; 83540; 85025; 85610

== ENCOUNTER 2025-04-28 12:17 | Outpatient (OUT) | payer MEDICARE, OTHER, SELFPAY ==
--- OUTSIDE RECORDS SUMMARY | 2025-04-28 12:23 | XMS_ITS | CCD ---
Author Organization [facility] Care Team Providers Care Medical Specialist Name Role Phone DORCAS CHIN AM Unavailable Unavailable Arthur, Rashad Unavailable Unavailable HOY, CHARLIE Unavailable Unavailable MARKER, ODESSA J Unavailable Unavailable GA Unavailable Unavailable DORCAS CHIN AM Unavailable Unavailable GA Unavailable Unavailable KARIM, ARIANA Unavailable Unavailable PHYSICIAN, DEFAULT Unavailable Unavailable PHYSICIAN, DEFAULT Unavailable Unavailable HOY, CHARLIE Unavailable Unavailable UNKNOWN, PROVIDER Unavailable Unavailable UNKNOWN, PROVIDER Unavailable Unavailable HOY, CHARLIE Unavailable Unavailable HOY, CHARLIE Unavailable Unavailable HUANG, TIGIST Unavailable Unavailable UNKNOWN, PROVIDER Unavailable Unavailable HOY, CHARLIE Unavailable Unavailable HOY, CHARLIE Unavailable Unavailable Charlie Stark Primary Care Physician FAWWAD, GONSALEZ H Admitting [...] HOY ., DR GUERRA Primary Care Unavailable ELLE ., DR GUERRA Primary Care Unavailable BEBA [...] Care Unavailable FAWWAD, GONSALEZ H Attending Unavailable Fernandez ROBLERO Attending Unavailable Charlie Stark Referring Unavailable PINO, ERNIE Referring Unavailable PINO, ERNIE Referring Unavailable PINO, ERNIE Referring Unavailable PINO, ERNIE Referring Unavailable MOUKARBELEDUARD Attending Unavailable MOUKARBEL, EDUARD Attending Unavailable PINO, ERNIE Referring Unavailable MOUKARBELEDUARD Attending Unavailable Allergies Allergy Classification Reported Allergen(s) Allergy Type Date of Onset Reaction(s) Facility (3 sources) black walnut pollen extract; Translations: [[id number] REDUCTASE INHIBITORS] Drug Allergy [address] [facility] Rep[facility] (3 sources) celecoxib; Translations: [CeleBREX] Drug Allergy [address] [facility] (3 sources) HMG-CoA reductase inhibitor; Translations: [statins] Drug allergy Unknown (qualifier value) [facility] (2 sources) celecoxib; Translations: [celecoxib] Drug Allergy 12-19-201 4 Itching (finding) [facility] [place] Medications Current Medications Medication Drug Class(es) Dates Sig (Normalized) Sig (Original) 1.5 ML inclisiran 189 MG/ML Prefilled Syringe [Leqvio] (1 source) Start: 03-08-2025 Leqvio 284 mg/1.5 mL subcutaneous solution 284 mg, SubCutaneous, q6mo, Refills(s) 0 Start Date: 03/08/25 Status: Ordered Repeat number: 1 amitriptyline hydrochloride 25 mg oral tablet (2 sources) Tricyclic Antidepressant Start: 06-07-2019 take 1 mg by mouth once daily at bedtime amitriptyline 25 mg Tab mg tab(s), Oral, Once a day (at bedtime), Refills(s) 0 Start Date: 06/07/19 Status: Ordered Repeat number: 1 aspirin 81 mg delayed release oral tablet (2 sources) Platelet Aggregation Inhibitor, Nonsteroidal Anti-inflammatory Drug Start: 03-08-2025 take 1 tablet by mouth once daily aspirin 81 mg Oral EC Tab 81 mg = 1 tab(s), Oral, Daily, Refills(s) 0 Start Date: 03/08/25 Status: Ordered Repeat number: 1 Start: 06-07-2019 take 1 mg by mouth once daily Adult Aspirin 81 mg oral tablet, chewable mg tab(s), Chewed, Daily, Refills(s) 0 Start Date: 06/07/19 Status: Ordered carvedilol 6.25 mg oral tablet (2 sources) alpha-Adrenergic Yuridia, beta-Adrenergic Yuridia Start: 03-08-2025 take 3 tablets by mouth twice daily Coreg 6.25 mg Tab 18.75 mg = 3 tab(s), Oral, BID, Refills(s) 0 Start Date: 03/08/25 Status: Ordered Repeat number: 1 Start: 06-07-2019 take 1 mg by mouth twice daily carvedilol 3.125 mg Tab mg tab(s), Oral, BID, Refills(s) 0 Start Date: 06/07/19 Status: Ordered dapagliflozin 10 mg oral tablet (1 source) Sodium-Glucose Cotransporter 2 Inhibitor Start: 03-08-2025 take 1 tablet by mouth once daily Farxiga 10 mg oral tablet 10 mg = 1 tab(s), Oral, Daily, Refills(s) 0 Start Date: 03/08/25 Status: Ordered Repeat number: 1 docusate sodium 100 mg oral capsule (2 sources) Start: 06-07-2019 take 1 capsule by mouth twice daily as needed for constipation Colace 100 mg Cap 100 mg = 1 cap(s), Oral, BID, PRN for constipation, # 20 cap(s), Refills(s) 0 Start Date: 06/07/19 Status: Ordered Quantity: 20.0 Unit: cap(s) Repeat number: 1 erythromycin 0.005 mg/mg ophthalmic ointment (1 source) Macrolide, Macrolide Antimicrobial Start: 08-26-2022 take 3 g into the eye(s) once daily in the evening erythromycin Opth 0.5% Oint Refill(s) 0, 3 gm, APPLY A THIN LAYER TO BOTH EYES EVERY EVENING Start Date: 08/26/22 Status: Ordered ezetimibe 10 mg oral tablet (1 source) Dietary Cholesterol Absorption Inhibitor Start: 03-08-2025 take 1 tablet by mouth once daily Zetia 10 mg Tab 10 mg = 1 tab(s), Oral, Daily, Refills(s) 0 Start Date: 03/08/25 Status: Ordered Repeat number: 1 ferrous fumarate 325 mg oral tablet (1 source) Start: 06-13-2020 take 1 mg by mouth once daily ferrous fumarate 325 mg oral tablet mg tab(s), Oral, Daily, Refills(s) 0 Start Date: 06/13/20 Status: Ordered ferrous sulfate 325 mg oral tablet (1 source) Start: 03-08-2025 take 1 tablet by mouth twice daily ferrous sulfate 325 mg Tab 325 mg = 1 tab(s), Oral, BID, Refills(s) 0 Start Date: 03/08/25 Status: Ordered Repeat number: 1 Iron 100 Plus (2 sources) Start: 06-07-2019 take 1 tablet by mouth once daily Iron 100 Plus tab(s), Oral, Daily, Refill(s) 0 Start Date: 06/07/19 Status: Ordered Start: 06-07-2019 take 1 tablet by zachery th once daily Iron 100 Plus tab(s), Oral, Daily, Refill(s) 0 Start Date: 06/07/19 Status: Ordered 24 hr isosorbide mononitrate 30 mg extended release oral tablet (2 sources) Nitrate Vasodilator Start: 06-13-2020 take 1 mg by mouth once daily in the morning isosorbide mononitrate 30 mg ER Tab mg tab(s), Oral, qAM, Refills(s) 0 Start Date: 06/13/20 Status: Ordered Repeat number: 1 melatonin 10 mg oral tablet (2 sources) Start: 03-08-2025 take 1 tablet by mouth once daily at bedtime melatonin 10 mg oral tablet 10 mg = 1 tab(s), Oral, Once a day (at bedtime), Refills(s) 0 Start Date: 03/08/25 Status: Ordered Repeat number: 1 Start: 06-07-2019 melatonin Once a day (at bedtime), Refills(s) 0 Start Date: 06/07/19 Status: Ordered NIFEdipine 30 mg oral tablet (1 source) Dihydropyridine Calcium Channel Yuridia Start: 06-07-2019 take 1 mg by mouth once daily NIFEdipine 30 mg ER Tab mg tab(s), Oral, Daily, Refills(s) 0 Start Date: 06/07/19 Status: Ordered omeprazole 40 mg delayed release oral capsule (2 sources) Proton Pump Inhibitor Start: 06-13-2020 take 1 mg by mouth once daily omeprazole 40 mg Cap-DR mg cap(s), Oral, Daily, Refills(s) 0 Start Date: 06/13/20 Status: Ordered Repeat number: 1 Potassium Acetate (1 source) Start: 06-07-2019 potassium acetate Refills(s) 0 Start Date: 06/07/19 Status: Ordered sacubitril 24 mg / valsartan 26 mg oral tablet (1 source) Angiotensin 2 Receptor Yuridia Start: 03-08-2025 take 1 tablet by mouth twice daily Entresto 24 mg-26 mg oral tablet 1 tab(s), Oral, BID, Refill(s) 0 Start Date: 03/08/25 Status: Ordered Repeat number: 1 spironolactone 25 mg oral tablet (1 source) Aldosterone Antagonist Start: 03-08-2025 spironolactone 25 mg Tab 12.5 mg = 0.5 tab(s), Oral, Daily, Refills(s) 0 Start Date: 03/08/25 Status: Ordered Repeat number: 1 temazepam 30 mg oral capsule (2 sources) Benzodiazepine Start: 06-13-2020 take 1 capsule by mouth once daily at bedtime as needed for sleep temazepam 30 mg Cap 30 mg = 1 cap(s), Oral, Once a day (at bedtime), PRN for sleep, Refills(s) 0 Start Date: 06/13/20 Status: Ordered Repeat number: 1 torsemide 20 mg oral tablet (1 source) Loop Diuretic Start: 06-07-2019 take 1 mg by mouth once daily torsemide 20 mg Tab mg tab(s), Oral, Daily, Refills(s) 0 Start Date: 06/07/19 Status: Ordered Vitamin D2 2000 intl units oral capsule (1 source) Start: 03-08-2025 take 1 capsule by mouth once daily Vitamin D2 2000 intl units oral capsule 50 mcg = 1 cap(s), Oral, Daily, cap(s), Refills(s) 0 Start Date: 03/08/25 Status: Ordered Repeat number: 1 Vitamin D3 (1 source) Start: 06-07-2019 Vitamin D3 Refills(s) 0 Start Date: 06/07/19 Status: Ordered warfarin sodium 5 mg oral tablet (3 sources) Vitamin K Antagonist Start: 08-26-2022 warfarin 5 mg Tab 108 EA, TAKE DAILY DIRECTED BY COUMADIN CLINIC, Refills(s) 0 Start Date: 08/26/22 Status: Ordered Start: 06-07-2019 warfarin Oral, Daily, Refills(s) 0 Start Date: 06/07/19 Status: Ordered Repeat number: 1 Start: 06-07-2019 warfarin Oral, Daily, Refills(s) 0 [...] Documented Da te Episodic/Chronic Acute myocardial infarction (2 sources) Myocardial infarction 06-03-2019 Chronic Cardiac dysrhythmias (4 sources) Multiple premature ventricular complexes; Translations: [Paroxysmal atrial fibrillation] Onset: 08-17-2019 03-08-2025 Chronic Chronic kidney disease (3 sources) Chronic kidney disease, unspecified; Translations: [Chronic kidney disease, stage 3 (moderate)] Onset: 05-14-2017 03-08-2025 Chronic Conduction disorders (11 sources) Presence of cardiac pacemaker; Translations: [Atrioventricular block, second degree] Onset: 05-14-2017 03-08-2025 Chronic Congestive heart failure; nonhypertensive (10 sources) Unspecified diastolic (congestive) heart failure; Translations: [Chronic diastolic (congestive) heart failure] Onset: 05-14-2017 Chronic Coronary atherosclerosis and other heart disease (13 sources) Atherosclerotic heart disease of [place] coronary artery without angina pectoris; Translations: [Old [...] Onset: 05-14-2017 Chronic Diabetes mellitus without complication (2 sources) Diabetes mellitus 06-03-2019 Chronic Disorders of lipid metabolism (7 sources) Mixed hyperlipidemia; Translations: [Hyperlipidemia] Onset: 11-25-2016 Chronic Esophageal disorders (2 sources) Gastro-esophageal reflux disease without esophagitis; Translations: [Gastroesophageal reflux disease] Onset: 05-14-2017 03-08-2025 Chronic Essential hypertension (4 sources) Hypertensive disorder; Translations: [Essential (primary) hypertension] Onset: 10-22-2022 06-03-2019 Chronic Genitourinary symptoms and ill-defined conditions (1 source) Urge incontinence of urine 06-12-2020 Chronic Hyperplasia of prostate (8 sources) Benign prostatic hyperplasia without lower urinary [...] kidney disease] Onset: 05-14-2017 Chronic Mood disorders (2 sources) Depressive disorder 06-03-2019 Chronic Nutritional deficiencies (1 source) Vitamin D deficiency, unspecified; Translations: [VITAMIN D DEFICIENCY, UNSPECIFIED] Onset: 05-14-2017 Chronic Osteoarthritis (1 source) Unspecified osteoarthritis, unspecified site; Translations: [UNSPECIFIED OSTEOARTHRITIS, UNSPECIFIED SITE] Onset: 06-10-2017 Chronic Other aftercare (3 sources) [facility] (current) use of anticoagulants; Translations: [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] Onset: 05-14-2017 Episodic Other aftercare (5 sources) Encounter for therapeutic drug level monitoring; Translations: [ENC THERAPEUTC DRUG LEVL MONITORING] Onset: 01-03-2023 Episodic Other aftercare (1 source) Long-term current use of anticoagulant 03-08-2025 Episodic Other diseases of kidney and ureters (1 source) Urinary tract obstruction; Translations: [Other obstructive and reflux uropathy] Onset: 08-26-2022 Episodic Other nutritional; endocrine; and metabolic disorders (1 source) Body mass index 40+ - severely obese 06-03-2019 Chronic Other nutritional; endocrine; and metabolic disorders (1 source) Morbid obesity 06-03-2019 Chronic Other nutritional; endocrine; and metabolic disorders (1 source) Body mass index 30+ - obesity 03-21-2025 Chronic Other nutritional; endocrine; and metabolic disorders (1 source) Obesity caused by energy imbalance 03-08-2025 Chronic Other skin disorders (1 source) Epidermoid cyst; Translations: [Epidermal cyst] Onset: 03-21-2025 Episodic Other skin disorders (1 source) Epidermoid cyst of skin 03-21-2025 Episodic Peripheral and visceral atherosclerosis (2 sources) Peripheral vascular disease 06-03-2019 Chronic Phlebitis; thrombophlebitis and thromboembolism (2 sources) 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; Translations: [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] Onset: 10-22-2022 Chronic Phlebitis; thrombophlebitis and thromboembolism (9 sources) Personal history of other venous thrombosis and embolism; Translations: [Acute embolism and thrombosis of unspecified deep veins of unspecified lower extremity] Onset: 05-14-2017 Episodic Pulmonary heart disease (5 sources) Personal history of pulmonary embolism; Translations: [H/O: pulmonary embolus] Onset: 06-10-2017 03-08-2025 Episodic Residual codes; unclassified (2 sources) Sleep apnea 06-03-2019 Chronic Residual codes; unclassified (1 source) Obstructive sleep apnea syndrome 03-08-2025 Chronic Screening or history of mental health and substance abuse (2 sources) Personal history of nicotine dependence; Translations: [Ex-smoker] Onset: 05-14-2017 06-03-2019 Episodic Systemic lupus erythematosus and connective tissue disorders (2 sources) Sicca syndrome, unspecified; Translations: [Sjogren's syndrome] Onset: 06-10-2017 03-08-2025 Chronic Unclassified (1 source) Obstructive sleep apnea (adult) (pediatric); Translations: [OBSTRUCTIVE SLEEP APNEA (ADULT) (PEDIATRIC)] Onset: 05-14-2017 Chronic Unclassified (1 source) 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) use of oral hypoglycemic drugs; Translations: [NURSING HOME (CURRENT) USE OF ORAL HYPOGLYCEMIC DRUGS] Onset: [...] Test Name Value Interpretation Reference Range Facility General Surgery Office/Clini c Noteon 03-21-2025 General Surgery Office/Clinic Note General Surgery Office/Clinic Note HPI Staff 79 year old male [...] Illness 79 yo male with h/o CAD, [place], PE, paroxysmal atrial fibrillation, on chronic warfarin, [...] infarction History of pulmonary embolism Hyperlipidemia Hypertension [facility] current use of anticoagulant Obesity due to [...] tab(s), Oral, Once a day (at bedtime) (more content not included)... [facility] Comment on above: Result Comment: Electronically Signed By : OSBALDO DELGADO, Fernandez Aly\Date and Time Signed: 03/21/25 14:29 EDT Office Visiton 02-06-2025 Follow-up visit [id number] Panfilo Francis 1945 M Date Provider Department Center 02/06/2025 EDUARD PRUITT Family History Adopted: Yes Family Status - Relation Status Age at Mother Father Level of Service:37236 [place] OFFICE/OUTPATIENT ESTABLISHED MOD [facility] 30 MIN [facility] Orders Onlyon 01-20-2025 Orders Only [id number] Panfilo Francis 1945 Date Provider Department Center 01/20/2025 ERNIE GUILLAUME [facility] CARD [place] [facility] Family History Adopted: Yes [facility] Orders Onlyon 09-08-2024 Orders Only [id number] Panfilo Francis 1945 M Date Provider Department Center 09/08/2024 BRAN VALIENTE Family History Adopted: Yes Normal [facility] Office Visiton 08-22-2024 Follow-up visit [id number] Panfilo Francis 1945 M Date Provider Department Center 08/22/2024 EDUARD PRUITT Family History Adopted: Yes Level of Service:49507 [place] OFFICE/OUTPATIENT ESTABLISHED MOD MDM 30 MIN [facility] Office Visiton 06-03-2024 Follow-up visit [id number] Panfilo Francis 1945 M Date Provider Department Center 06/03/2024 EDUARD PRUITT Family History Adopted: Yes Level of Service:62083 [place] OFFICE/OUTPATIENT ESTABLISHED MOD MDM [address] [facility] PROF CHEM 8 (BAS METB)on Anion gap [Moles/Vol] 5.7 mmol/L Normal [facility] Comment on above: Performed By: #### BMP #### [facility] [address] [address] [address] Wili Cardona Calcium [Mass/Vol] 8.5 mg/dL Normal 8.5-10.1 [facility] Comment on above: Performed By: #### BMP #### [facility] [address] [address] [address] Wili Cardona Chloride [Moles/Vol] 100 mmol/L Normal 98-107 [facility] Comment on above: Performed By: #### BMP #### [facility] [address] [address] [address] Wili Cardona CO2 [Moles/Vol] 36.1 mmol/L Critically high 21.0-32.0 [facility] Comment on above: Performed By: #### BMP #### [facility] [address] [address] [address] Wili Cardona Creatinine [Mass/Vol] 1.29 mg/dL Normal 0.70-1.30 [facility] Comment on above: Performed By: #### BMP #### [facility] [address] [address] [address] Wili Cardona EGFR-AF BRAZILIAN >60 Normal >=60 [facility] Comment on above: Performed By: #### BMP #### [facility] [address] [address] [address] Wili Cardona EGFR-NON AF BRAZILIAN 54 mL/min/1.73m2 Critically low >=60 [facility] Comment on above: Performed By: #### BMP #### [facility] [address] [address] [address] Wili Cardona Glucose [Mass/Vol] 131 mg/dL Critically high 74-106 [facility] Comment on above: Performed By: #### BMP #### [facility] [address] [address] [address] Wili Cardona Potassium [Moles/Vol] 3.8 mmol/L Normal 3.5-5.1 [facility] Comment on above: Performed By: #### BMP #### [facility] [address] [address] [address] Wili Cardona Sodium [Moles/Vol] 138 mmol/L Normal 136-145 [facility] Comment on above: Performed By: #### BMP #### [facility] [address] [place] [address] Dr. Wili Cardona Urea nitrogen [Mass/Vol] 23.0 mg/dL Critically high 7.0-18.0 [facility] Comment on above: Performed By: #### BMP #### [facility] [address] [place] [address] Dr. Wili Cardona Urea nitrogen/Creatin ine [Mass ratio] 17.8 mg/mg Normal [facility] Comment on above: Performed By: #### BMP #### [facility] [address] [place] [address] Dr. Wili Cardona CBC AUTO DIFFon 04-16-2022 BASO # 0.0 103/ul Normal 0.0-0.1 [facility] Comment on above: Performed By: #### CBC #### [facility] [address] [place] [address] Dr. Wili Cardona Basophils/100 WBC (Bld) 0.3 % Normal 0.2-2.0 [facility] Comment on above: Performed By: #### CBC #### [facility] [address] [place] [address] Dr. Wili Cardona EO # 0.1 103/ul Normal 0.0-0.7 [facility] Comment on above: Performed By: #### CBC #### [facility] [address] [place] [address] Dr. Wili Cardona Eosinophils/100 WBC (Bld) 1.5 % Normal 0.9-7.0 [facility] Comment on above: Performed By: #### CBC #### [facility] [address] [place] [address] Dr. Wili Cardona Erythrocyte distribution width (RBC) [Ratio] 13.4 % Normal 11.0-15.0 [facility] Comment on above: Performed By: #### CBC #### [facility] [address] [place] [address] Dr. Wili Cardona Hematocrit (Bld) [Volume fraction] 41.1 % Critically low 42.0-54.0 [facility] Comment on above: Performed By: #### CBC #### [facility] [address] [place] [address] Dr. Wili Cardona Hemoglobin (Bld) [Mass/Vol] 13.3 g/dL Critically low 14.0-18.0 [facility] Comment on above: Performed By: #### CBC #### [facility] [address] [place] [address] Dr. Wili Cardona IG # 0.02 10e3/ul Normal 0.00-0.03 [facility] Comment on above: Performed By: #### CBC #### [facility] [address] [place] [address] Dr. Wili Cardona IG % 0.3 % Normal 0.0-0.5 [facility] Comment on above: Performed By: #### CBC #### [facility] [address] [place] [address] Dr. Wili Cardona LYMPH # 1.5 103/ul Normal 1.2-3.8 [facility] Comment on above: Performed By: #### CBC #### [facility] [address] [place] [address] Dr. Wili Cardona Lymphocytes/100 WBC (Bld) 22.7 % Normal 20.5-60.0 [facility] Comment on above: Performed By: #### CBC #### [facility] [address] [place] [address] Dr. Wili Cardona MANUAL DIFF REQ NO Normal [facility] Comment on above: Performed By: #### CBC #### [facility] [address] [place] [address] Dr. Wili Cardona MCH (RBC) [Entitic mass] 30.0 pg Normal 25.9-34.0 [facility] Comment on above: Performed By: #### CBC #### [facility] [address] [place] [address] Dr. Wili Cardona MCHC (RBC) [Mass/Vol] 32.4 g/dL Normal 29.9-35.2 [facility] Comment on above: Performed By: #### CBC #### [facility] [address] [place] [address] Dr. Wili Cardona MCV (RBC) [Entitic vol] 92.6 fL Normal 80.0-94.0 [facility] Comment on above: Performed By: #### CBC #### [facility] [address] [place] [address] Dr. Wili Cardona MONO # 0.5 103/ul Normal 0.3-0.8 [facility] Comment on above: Performed By: #### CBC #### [facility] [address] [place] [address] Dr. Wili Cardona Monocytes/100 WBC (Bld) 7.4 % Normal 1.7-12.0 [facility] Comment on above: Performed By: #### CBC #### [facility] [address] [place] [address] Dr. Wili Cardona NEUT # 4.5 103/ul Normal 1.4-6.5 [facility] Comment on above: Performed By: #### CBC #### [facility] [address] [place] [address] Dr. Wili Cardona Neutrophils/100 WBC (Bld) 67.8 % Normal 43.0-75.0 [facility] Comment on above: Performed By: #### CBC #### [facility] [address] [place] [address] Dr. Wili Cardona Platelet mean volume (Bld) [Entitic vol] 9.5 fL Normal 9.5-13.5 [facility] Comment on above: Performed By: #### CBC #### [facility] [address] [place] [address] Dr. Wili Cardona PLT 151 103/ul Normal 150-450 [facility] Comment on above: Performed By: #### CBC #### [facility] [address] [address] [address] Wili Cardona RBC 4.44 106/ul Critically low 4.70-6.10 [facility] Comment on above: Performed By: #### CBC #### [facility] [address] [address] [address] Wili Cardona WBC 6.6 103/ul Normal 4.0-11.0 [facility] Comment on above: Performed By: #### CBC #### [facility] [address] [address] [address] Wili Cardona LIPID PROFILEon 04-16-2022 CHOL-HDL RATIO NORM SEE BELOW Normal [facility] Comment on above: Result Comment: 3.3 - 4.4 LOW RISK 4.4 - 7.1 AVERAGE RISK 7.1 - 11.0 MODERATE RISK >11.0 HIGH RISK Performed By: #### L IPID, CMP #### [facility] [address] [address] [address] Wili Cardona Cholesterol [Mass/Vol] 213 mg/dL Critically high <=200 [facility] Comment on above: Performed By: #### LIPID, CMP #### [facility] [address] [address] [address] Wili Cardona Cholesterol in HDL [Mass/Vol] 54 mg/dL Normal 40-60 [facility] Comment on above: Performed By: #### LIPID, CMP #### [facility] [address] [address] [address] Wili Cardona Cholesterol in LDL [Mass/Vol] 147.2 mg/dL Normal [facility] Comment on above: Performed By: #### LIPID, CMP #### [facility] [address] [place] [address] Dr. Wili Cardona Cholesterol.tota l/Cholesterol in HDL [Mass ratio] 3.9 {ratio} Normal [facility] Comment on above: Performed By: #### LIPID, CMP #### [facility] Laboratory [address] [place] [address] Dr. Wili Cardona HDL NORMAL > or = 60 mg/dl - LO W CARDIOVASCULAR RISK <40 mg/dl - HIGH CARDIOVASCULAR RISK Normal [facility] Comment on above: Performed By: #### LIPID, CMP #### [facility] Laboratory [address] [address] [address] Wili Cardona LDL CALC NORMAL SEE BELOW Normal [facility] Comment on above: Result Comment: <100 mg/dl OPTIMAL 100 - 129 mg/dl NEAR OR ABOVE OPTIMAL 130 - 159 mg/dl BORDERLINE HIGH 160 - 189 mg/dl HIGH >190 mg/dl VERY HIGH Performed By: #### L IPID, CMP #### [facility] Laboratory [address] [address] [address] Wili Cardona Triglyceride [Mass/Vol] 59 mg/dL Normal <=150 [facility] Comment on above: Performed By: #### LIPID, CMP #### [facility] Laboratory [address] [address] [address] Wili Cardona VLDL CALC 11.8 mg/dL Normal [facility] Comment on above: Performed By: #### LIPID, CMP #### [facility] Laboratory [address] [address] [address] Wili Cardona PROF 14(COMP METB)on 022 Albumin [Mass/Vol] 3.2 g/dL Critically low 3.4-5.0 [facility] Comment on above: Performed By: #### LIPID, CMP #### [facility] Laboratory [address] [place] [address] Dr. Wili Cardona Albumin/Globulin [Mass ratio] 0.9 {ratio} Normal [facility] Comment on above: Performed By: #### LIPID, CMP #### [facility] Laboratory [address] [address] [address] Wili Cardona ALP [Catalytic activity/Vol] 83 U/L Normal 46-116 [facility] Comment on above: Performed By: #### LIPID, CMP #### [facility] Laboratory [address] [place] [address] Dr. Wili Cardona ALT [Catalytic activity/Vol] 17 U/L Normal 16-63 [facility] Comment on above: Performed By: #### LIPID, CMP #### [facility] Laboratory [address] [address] [address] Wili Cardona Anion gap [Moles/Vol] 10.6 mmol/L Normal [facility] Comment on above: Performed By: #### LIPID, CMP #### [facility] Laboratory [address] [address] [address] Wili Cardona AST [Catalytic activity/Vol] 16 U/L Normal 15-37 [facility] Comment on above: Performed By: #### LIPID, CMP #### [facility] Laboratory [address] [address] [address] Wili Carodna Bilirubin [Mass/Vol] 0.6 mg/dL Normal 0.2-1.0 [facility] Comment on above: Performed By: #### LIPID, CMP #### [facility] Laboratory [address] [address] [address] Wili Cardona Calcium [Mass/Vol] 8.9 mg/dL Normal 8.5-10.1 [facility] Comment on above: Performed By: #### LIPID, CMP #### [facility] Laboratory [address] [address] [address] Wili Cardona Chloride [Moles/Vol] 102 mmol/L Normal 98-107 [facility] Comment on above: Performed By: #### LIPID, CMP #### [facility] Laboratory [address] [place] [address] Dr. Wili Cardona CO2 [Moles/Vol] 32.7 mmol/L Critically high 21.0-32.0 [facility] Comment on above: Performed By: #### LIPID, CMP #### [facility] Laboratory [address] [place] [address] Dr. Wili Cardona Creatinine [Mass/Vol] 1.13 mg/dL Normal 0.70-1.30 [facility] Comment on above: Performed By: #### LIPID, CMP #### [facility] Laboratory [address] [address] [address] Wili Cardona EGFR-AF BRAZILIAN >60 Normal >=60 [facility] Comment on above: Performed By: #### LIPID, CMP #### [facility] Laboratory [address] [address] [address] Wili Cardona EGFR-NON AF BRAZILIAN >60 Normal >=60 [facility] Comment on above: Performed By: #### LIPID, CMP #### [facility] [address] [address] [address] Wili Cardona Globulin (S) [Mass/Vol] 3.4 g/dL Normal [facility] Comment on above: Performed By: #### LIPID, CMP #### [facility] Laboratory [address] [address] [address] Wili Cardona Glucose [Mass/Vol] 85 mg/dL Normal 74-106 [facility] Comment on above: Performed By: #### LIPID, CMP #### [facility] Laboratory [address] [place] [address] Dr. Wili Cardona Potassium [Moles/Vol] 5.3 mmol/L Critically high 3.5-5.1 [facility] Comment on above: Performed By: #### LIPID, CMP #### [facility] Laboratory [address] [place] [address] Dr. Wili Cardona Protein [Mass/Vol] 6.6 g/dL Normal 6.4-8.2 [facility] Comment on above: Performed By: #### LIPID, CMP #### [facility] Laboratory [address] [place] [address] Dr. Wili Cardona Sodium [Moles/Vol] 140 mmol/L Normal 136-145 [facility] Comment on above: Performed By: #### LIPID, CMP #### [facility] Laboratory [address] [place] [address] Dr. Wili Cardona Urea nitrogen [Mass/Vol] 21.0 mg/dL Critically high 7.0-18.0 [facility] Comment on above: Performed By: #### LIPID, CMP #### [facility] Laboratory [address] [place] [address] Dr. Wili Cardona Urea nitrogen/Creatin ine [Mass ratio] 18.6 mg/mg Normal [facility] Comment on above: Performed By: #### LIPID, CMP #### [facility] Laboratory [address] [place] [address] Dr. Wili Cardona BASIC METABOLIC PANELon 10-0 Calcium 9.0 mg/dL Normal 8.6-10.[address] [facility] Comment on above: Order Comment: No: Do not add to previou s draw Performed By: #### 1 0070, 48810, [id number] ####[facility] [place] [address], [facility] Chloride 102 mmol/L Normal 98-[address] [facility] Comment on above: Order Comment: No: Do not add to previou s draw Performed By: #### 1 0070, 42250, 58338 ####[facility] [place] [address], [facility] CO2 28 mmol/L Normal 21-[address] [facility] Comment on above: Order Comment: No: Do not add to previou s draw Performed By: #### 1 0070, 93820, 24999 ####[facility] [place] [address], [facility] Creatinine 1.17 mg/dL Normal 0.70-1.[address] [facility] Comment on above: Order Comment: No: Do not add to previou s draw Performed By: #### 1 0070, 36231, 70354 ####[facility] eGFR (black) mL/min/{1.73_m2} Normal >[address] [facility] Comment on above: Order Comment: No: Do not add to previou s draw Result Comment: Calc ulation may not be valid for patients over 70 years Performed By: #### 1 0070, 56521, 09785 ####[facility] [place] [address], [facility] eGFR (non-black) mL/min/{1.73_m2} Normal >[address] [facility] Comment on above: Order Comment: No: Do not add to previou s draw Result Comment: Calc ulation may not be valid for patients over 70 years Performed By: #### 1 0070, 40836, 13190 ####[facility] [place] [address], [facility] Glucose mass conc 87 mg/dL Normal 70-[address] [facility] Comment on above: Order Comment: No: Do not add to previou s draw Performed By: #### 1 0070, 40586, 92272 ####[facility] [place] [address], [facility] Potassium molar conc 4.3 mmol/L Normal 3.5-5.[address] [facility] Comment on above: Order Comment: No: Do not add to previou s draw Performed By: #### 1 0070, 39694, 44006 ####[facility] [facility] [address], [facility] Sodium 136 mmol/L Normal 136-[address] [facility] Comment on above: Order Comment: No: Do not add to previou s draw Performed By: #### 1 0070, 69876, 51321 ####[facility] [place] [address], [facility] Urea nitrogen 15 mg/dL Normal 7-[address] [facility] Comment on above: Order Comment: No: Do not add to previou s draw Performed By: #### 1 0070, 96164, 66180 ####[facility] [facility].[address] Cardiovascular Lab Reporton 06-12-2017 Cardiovascular Lab Report [facility] Patient Name: Dylon Francis [facility] MR #: [id number] Physician: Eduard Wang M.D.Medicine Service Date: 06/11/2017Division of Birthdate: 4Cardiology Room #: 3AB [id number] [address]Phone Fax Cardiovascular Laboratory ReportCARDIAC CATHETERIZATION REPORTINDICATION:Dylon Francis [...] micropuncture catheterfollowed by a dilator of a 5-Pakistani pinnacle sheath. Eventually, we wereable to overcome the subcutaneous tissue and advance the 5-Pakistani pinnaclesheath and secure it in place.Using the angled Glidewire, the wire was advanced across the previouslyplaced aortic stent graft intraluminally and this allowed tracking of5-Pakistani diagnostic catheters. Bilateral selective coronary angiographywas then performed using a 5-Pakistani JL4 and AR modified diagnosticcatheters. Angiography was performed in multiple views.Heparin was administered intravenously and therapeutic ACT confirmed duringthe procedure. A 5-Pakistani XB3.5 guiding catheter was advanced and used toengage the left main coronary ostium. A Prowater wire was advanced intothe distal ramus vessel. [...] left femoralarteriotomy site was managed with a 6-Pakistani Angio-Seal device with goodhemostasis. He tolerated the [...] 06/11/2017/07:38 P/Eduard Hopson M.D.Date Trans: 06/12/2017 04:56 P/nithinoDN_JN:[id number]: Charlie Stark M.D. [address] [facility] [address] [facility] POC GLUCOSE LABon 06-12-2017 Glucose mass conc 82 mg/dL Normal 70-[address] [facility] Comment on above: Performed By: #### 57267, 54323, 08397 # ###[facility] [facility] [place] [address], [facility] Glucose mass conc 146 mg/dL High 70-[address] [facility] Comment on above: Performed By: #### 29622, 79934, 94532 # ###[facility] [place] [address], [facility] BASIC METABOLIC PANELon Calcium 8.5 mg/dL Low 8.6-10.[address] [facility] Comment on above: Order Comment: No: Do not add to previou s draw Performed By: #### 5 6101 ####[facility] [place] [address], [facility] Chloride 104 mmol/L Normal 98-[address] [facility] Comment on above: Order Comment: No: Do not add to previou s draw Performed By: #### 5 6101 ####[facility] [place] [address], [place] CO2 28 mmol/L Normal 21-[address] [facility] Comment on above: Order Comment: No: Do not add to previou s draw Performed By: #### 5 6101 ####[facility] [place] [address], [facility] Creatinine 1.29 mg/dL Normal 0.70-1.[address] [facility] Comment on above: Order Comment: No: Do not add to previou s draw Performed By: #### 5 6101 ####[facility] [place] [address], [facility] eGFR (black) mL/min/{1.73_m2} Normal >[address] [facility] Comment on above: Order Comment: No: Do not add to previou s draw Result Comment: Calc ulation may not be valid for patients over 70 years Performed By: #### 5 6101 ####[facility] [place] [address], [facility] eGFR (non-black) 55 ml/min/1.73sq m Abnormal >[address] [facility] Comment on above: Order Comment: No: Do not add to previou s draw Result Comment: Calc ulation may not be valid for patients over 70 years Performed By: #### 5 6101 ####[facility] [place] [address], [place] Glucose mass conc 76 mg/dL Normal 70-[address] [facility] Comment on above: Order Comment: No: Do not add to previou s draw Performed By: #### 5 6101 ####[facility] [place] [address], [facility] Potassium molar conc 4.0 mmol/L Normal 3.5-5.[address] [facility] Comment on above: Order Comment: No: Do not add to previou s draw Performed By: #### 5 6101 ####[facility] [place] [address], [facility] Sodium 139 mmol/L Normal 136-[address] [facility] Comment on above: Order Comment: No: Do not add to previou s draw Performed By: #### 5 6101 ####[facility] [place] [address], [facility] Urea nitrogen 25 mg/dL Normal 7-[address] [facility] Comment on above: Order Comment: No: Do not add to previou s draw Performed By: #### 5 6101 ####[facility] [place] [address], [facility] POC GLUCOSE LABon 06-11-2017 Glucose mass conc 70 mg/dL Normal 70-[address] [facility] Comment on above: Performed By: #### 82860, 20657, 20688 # ###[facility] [place] [address], [place] Glucose mass conc 57 mg/dL Low 70-[address] [facility] Comment on above: Performed By: #### 26611 ####[facility] [place] [address], [place] Glucose mass conc 93 mg/dL Normal 70-[address] [facility] Comment on above: Performed By: #### 34954 ####[facility] [place] [address], [place] Glucose mass conc 64 mg/dL Low 70-[address] [facility] Comment on above: Performed By: #### 23279 ####[facility] Glucose mass conc 75 mg/dL Normal 70-[address] [facility] Comment on above: Performed By: #### 81841 ####[facility] PROTHROMBIN TIMEon 7 INR Coag RelTime (PPP) 1.11 {INR} Normal 0.91-1.[address] [facility] Comment on above: Order Comment: No: [...] OF ACTION, CLINICALEFFECTIVENESS, AND OPTIMAL THERAPEUTIC RANGE. [id number];108:231S-246S. Performed By: #### 5 6101 ####[facility] Prothrombin time (PT) Coag time (PPP) 14.4 s Normal 12.3-14.[address] [facility] Comment on above: Order Comment: No: Do not add to previou s draw Result Comment: ALL RESULTS MUST BE INTERPRETED WITH RESPECT TO BLOOD DRAWING ARTIFACTOR DILUTION ERROR OF ANTICOAGULANT AT THE TIME OF SAMPLING. Performed By: #### 5 6101 ####[facility] [place] [address], [facility] BASIC METABOLIC PANELon 10-0 Calcium 9.2 mg/dL Normal 8.6-10.[address] [facility] Comment on above: Order Comment: No: Do not add to previou s draw Performed By: #### 5 6101 ####[facility] [place] [address], [facility] Chloride 100 mmol/L Normal 98-[address] [facility] Comment on above: Order Comment: No: Do not add to previou s draw Performed By: #### 5 6101 ####[facility] [place] [address], [facility] CO2 29 mmol/L Normal 21-[address] [facility] Comment on above: Order Comment: No: Do not add to previou s draw Performed By: #### 5 6101 ####[facility] [place] [address], [facility] Creatinine 1.56 mg/dL High 0.70-1.[address] [facility] Comment on above: Order Comment: No: Do not add to previou s draw Performed By: #### 5 6101 ####[facility] [place] [address], [facility] eGFR (black) 53 ml/min/1.73sq m Abnormal >[address] [facility] Comment on above: Order Comment: No: Do not add to previou s draw Result Comment: Calc ulation may not be valid for patients over 70 years Performed By: #### 5 6101 ####[facility] [place] [address], [facility] eGFR (non-black) 44 ml/min/1.73sq m Abnormal >[address] [facility] Comment on above: Order Comment: No: Do not add to previou s draw Result Comment: Calc ulation may not be valid for patients over 70 years Performed By: #### 5 6101 ####[facility] Glucose mass conc 88 mg/dL Normal 70-[address] [facility] Comment on above: Order Comment: No: Do not add to previou s draw Performed By: #### 5 6101 ####[facility] Potassium molar conc 4.3 mmol/L Normal 3.5-5.[address] [facility] Comment on above: Order Comment: No: Do not add to previou s draw Performed By: #### 5 6101 ####[facility] [facility] Sodium 138 mmol/L Normal 136-[address] [facility] Comment on above: Order Comment: No: Do not add to previou s draw Performed By: #### 5 6101 ####[facility] [facility].[address] Urea nitrogen 29 mg/dL High 7-[address] [facility] Comment on above: Order Comment: No: Do not add to previou s draw Performed By: #### 5 6101 ####[facility] CBC W/DIFFon 06-10-2017 Basophils Auto #/vol (Bld) 0.4 % Normal 0.0-2.[address] [facility] Comment on above: Order Comment: No: Do not add to previou s draw Performed By: #### 5 6101 ####[facility] Eosinophils/100 leukocytes 2.1 % Normal 0.0-5.[address] [facility] Comment on above: Order Comment: No: Do not add to previou s draw Performed By: #### 5 6101 ####[facility] Erythrocyte distribution width Auto Ratio (RBC) 14.9 % Normal 11.5-16.[address] [facility] Comment on above: Order Comment: No: Do not add to previou s draw Performed By: #### 5 6101 ####[facility] Erythrocytes (RBC) 4.60 mill/mm3 Normal 4.30-5.[address] [facility] Comment on above: Order Comment: No: Do not add to previou s draw Performed By: #### 5 6101 ####[facility] [facility] Hematocrit (HCT) 40.0 % Normal 39.0-55.[address] [facility] Comment on above: Order Comment: No: Do not add to previou s draw Performed By: #### 5 6101 ####[facility] Hemoglobin mass conc (Bld) 12.9 g/dL Low 13.9-16.[address] [facility] Comment on above: Order Comment: No: Do not add to previou s draw Performed By: #### 5 6101 ####[facility] [place] [address], [facility] Lymphocytes/100 leukocytes 21.0 % Normal 20.0-40.[address] [facility] Comment on above: Order Comment: No: Do not add to previou s draw Performed By: #### 5 6101 ####[facility] [place] [address], [facility] MCH 27.9 pg Normal 24.0-32.[address] [facility] Comment on above: Order Comment: No: Do not add to previou s draw Performed By: #### 5 6101 ####[facility] [place] [address], [facility] MCHC mass conc (RBC) 32.1 g/dL Normal 32.0-36.[address] [facility] Comment on above: Order Comment: No: Do not add to previou s draw Performed By: #### 5 6101 ####[facility] [place] [address], [facility] MCV 87.0 fL Normal 80.0-100.[address] [facility] Comment on above: Order Comment: No: Do not add to previou s draw Performed By: #### 5 6101 ####[facility] [place] [address], [facility] METHOD Normal RBC Morphology Normal [facility] Comment on above: Order Comment: No: Do not add to previou s draw Performed By: #### 5 6101 ####[facility] [place] [address], [place] MONOS 6.6 % Normal 2-[address] [facility] Comment on above: Order Comment: No: Do not add to previou s draw Performed By: #### 5 6101 ####[facility] [place] [address], [place] Neutrophils/100 leukocytes 69.9 % Normal 50-[address] [facility] Comment on above: Order Comment: No: Do not add to previou s draw Performed By: #### 5 6101 ####[facility] [place] [address], [place] PLAT CNT 210 Thou/mm3 Normal 100-[address] [facility] Comment on above: Order Comment: No: Do not add to previou s draw Performed By: #### 5 6101 ####[facility] [place] [address], [place] WBC (Leukocytes) 8.7 Thou/mm3 Normal 4.0-10.[address] [facility] Comment on above: Order Comment: No: Do not add to previou s draw Performed By: #### 5 6101 ####[facility] [facility].[address] POC GLUCOSE LABon 06-10-2017 Glucose mass conc 97 mg/dL Normal 70-[address] [facility] Comment on above: Performed By: #### 54399 ####[facility] [facility].[address] PROTHROMBIN TIMEon 7 INR Coag RelTime (PPP) 1.10 {INR} Normal 0.91-1.[address] [facility] Comment on above: Order Comment: No: [...] OF ACTION, CLINICALEFFECTIVENESS, AND OPTIMAL THERAPEUTIC RANGE. [id number];108:231S-246S. Performed By: #### 5 6101 ####[facility] [place] [address], [facility] Prothrombin time (PT) Coag time (PPP) 14.3 s Normal 12.3-14.[address] [facility] Comment on above: Order Comment: No: Do not add to previou s draw Result Comment: ALL RESULTS MUST BE INTERPRETED WITH RESPECT TO BLOOD DRAWING ARTIFACTOR DILUTION ERROR OF ANTICOAGULANT AT THE TIME OF SAMPLING. Performed By: #### 5 6101 ####[facility] Discharge Summaryon 05-18-20 Discharge Summary MR#: [id number] [facility] Ad[facility]: [...] placement in 2006. 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 Iron deficiency anemia.PROCEDURE:1. Dual chamber right atrium and right ventricular AICD on 05/14/2017.2. Right ventricular lead repositioning on 05/15/2017.HPI: Mr. Francis is a 71 years old male who was transferred from [facility] with a presyncopal episode and fatigue. His family reported thathe was dizzy, lightheaded and incoherent after dinner. EKG at [facility] showed high-degree AV block [...] fatigue in the past.He was transferred to [facility] with symptomatic high second-degree AV block forpacemaker insertion.During hospital stay to [facility], the patient had episode of dizziness [...] Dict: 05/17/2017/08:48 P/SCAR Gutierrezate Trans: 05/18/2017 02:15 A/mmCamposN_JN:[id number]: Charlie Stark M.D. [address], [facility] [place] [address] [place] [facility] Cardiovascular Lab Reporton 05-17-2017 Cardiovascular Lab Report [facility] Patient Name: Dylon Francis [facility] MR #: [id number] Physician: Dorcas Chin,Department of M.D.Medicine Service Date: 05/15/2017Division of Birthdate: 4Cardiology Room #: 3AB [id number] [address]Wevlx Fax Cardiovascular Laboratory ReportPROCEDURE: Revision of RV [...] (RVlead) and a stylet with a 3/4 solomon curve was forwarded down the lead andthe [...] lead.2. RV lead, Biotronik Solia S53.3. Model #08942, serial #[id number]. RV sensing was 12 mV.5. RV pacing threshold was 0.4 V at 0.4 milliseconds.6. RV lead impedance 682 ohms.7. RA lead retained and capped inside the port of the pacer.8. The check showed a P-wave of 3.4 mV, a threshold of 0.8 V at 0.4 milliseconds and the impedance was 448 ohms.9. This is a Biotronik Solia S45 cm, model #202034 and serial #[id number].Retained pulse generator model Eluna 8 DR-T, model #755284 and serial#[id number].FINAL CONCLUSIONS:1. Successful repositioning of RV lead.2. We [...] 05/16/2017/05:30 P/Dorcas Chin M.D.Date Trans: 05/17/2017 06:31 A/Reji_JN:[id number]: Charlie Stark M.D. [address] [place] [address] [facility] BASIC METABOLIC PANELon 09-0 Calcium 8.4 mg/dL Low 8.6-10.[address] Hospital Comment on above: Order Comment: No: Do not add to previou s draw Performed By: #### 5 0608 ####[facility] [place] [address], [facility] Chloride 101 mmol/L Normal 98-[address] [facility] Comment on above: Order Comment: No: Do not add to previou s draw Performed By: #### 5 0608 ####[facility] [place] [address], [facility] CO2 31 mmol/L Normal 21-[address] [facility] Comment on above: Order Comment: No: Do not add to previou s draw Performed By: #### 5 0608 ####[facility] [place] [address], [facility] Creatinine 1.39 mg/dL High 0.70-1.[address] [facility] Comment on above: Order Comment: No: Do not add to previou s draw Performed By: #### 5 0608 ####[facility] [facility] [place] [address], [facility] eGFR (black) mL/min/{1.73_m2} Normal >[address] [facility] Comment on above: Order Comment: No: Do not add to previou s draw Result Comment: Calc ulation may not be valid for patients over 70 years Performed By: #### 5 0608 ####[facility] [facility] [place] [address], [facility] eGFR (non-black) 50 ml/min/1.73sq m Abnormal >[address] [facility] Comment on above: Order Comment: No: Do not add to previou s draw Result Comment: Calc ulation may not be valid for patients over 70 years Performed By: #### 5 0608 ####[facility] [place] [address], [facility] Glucose mass conc 70 mg/dL Normal 70-[address] [facility] Comment on above: Order Comment: No: Do not add to previou s draw Performed By: #### 5 0608 ####[facility] [facility].[address] Potassium molar conc 4.0 mmol/L Normal 3.5-5.[address] [facility] Comment on above: Order Comment: No: Do not add to previou s draw Performed By: #### 5 0608 ####[facility] [facility].[address] Sodium 137 mmol/L Normal 136-[address] [facility] Comment on above: Order Comment: No: Do not add to previou s draw Performed By: #### 5 0608 ####[facility] [facility].[address] Urea nitrogen 20 mg/dL Normal 7-[address] [facility] Comment on above: Order Comment: No: Do not add to previou s draw Performed By: #### 5 0608 ####[facility] [facility].[address] CBC W/DIFFon 05-16-2017 Basophils Auto #/vol (Bld) 0.5 % Normal 0.0-2.[address] [facility] Comment on above: Order Comment: No: Do not add to previou s draw Performed By: #### 5 0608 ####[facility] Eosinophils/100 leukocytes 3.3 % Normal 0.0-5.[address] [facility] Comment on above: Order Comment: No: Do not add to previou s draw Performed By: #### 5 0608 ####[facility] [facility].[address] Erythrocyte distribution width Auto Ratio (RBC) 15.0 % Normal 11.5-16.[address] [facility] Comment on above: Order Comment: No: Do not add to previou s draw Performed By: #### 5 0608 ####[facility] [facility] Erythrocytes (RBC) 4.59 mill/mm3 Normal 4.30-5.[address] [facility] Comment on above: Order Comment: No: Do not add to previou s draw Performed By: #### 5 0608 ####[facility] [facility].[address] Hematocrit (HCT) 40.0 % Normal 39.0-55.[address] [facility] Comment on above: Order Comment: No: Do not add to previou s draw Performed By: #### 5 0608 ####[facility] [facility].[address] Hemoglobin mass conc (Bld) 12.8 g/dL Low 13.9-16.[address] [facility] Comment on above: Order Comment: No: Do not add to previou s draw Performed By: #### 5 0608 ####[facility] Lymphocytes/100 leukocytes 20.3 % Normal 20.0-40.[address] [facility] Comment on above: Order Comment: No: Do not add to previou s draw Performed By: #### 5 0608 ####[facility] [facility].[address] MCH 27.9 pg Normal 24.0-32.[address] [facility] Comment on above: Order Comment: No: Do not add to previou s draw Performed By: #### 5 0608 ####[facility] [facility].[address] MCHC mass conc (RBC) 32.1 g/dL Normal 32.0-36.[address] [facility] Comment on above: Order Comment: No: Do not add to previou s draw Performed By: #### 5 0608 ####[facility] [place] [address], [facility] MCV 87.2 fL Normal 80.0-100.[address] [facility] Comment on above: Order Comment: No: Do not add to previou s draw Performed By: #### 5 0608 ####[facility] [place] [address], [facility] METHOD Normal [facility] Comment on above: Order Comment: No: Do not add to previou s draw Result Comment: Auto mated differential performedNormal RBC Morphology Performed By: #### 5 0608 ####[facility] [place] [address], [facility] MONOS 8.2 % High 2-[address] [facility] Comment on above: Order Comment: No: Do not add to previou s draw Performed By: #### 5 0608 ####[facility] [place] [address], [facility] Neutrophils/100 leukocytes 67.7 % Normal 50-[address] [facility] Comment on above: Order Comment: No: Do not add to previou s draw Performed By: #### 5 0608 ####[facility] [place] [address], [facility] PLAT CNT 183 Thou/mm3 Normal 100-[address] [facility] Comment on above: Order Comment: No: Do not add to previou s draw Performed By: #### 5 0608 ####[facility] [place] [address], [facility] WBC (Leukocytes) 5.7 Thou/mm3 Normal 4.0-10.[address] [facility] Comment on above: Order Comment: No: Do not add to previou s draw Performed By: #### 5 0608 ####[facility] [place] [address], [facility] POC GLUCOSE LABon 05-16-2017 Glucose mass conc 120 mg/dL High 70-100 [facility] Comment on above: Performed By: #### 43592 ####[facility] [place] [address], [facility] Glucose mass conc 71 mg/dL Normal 70-100 [facility] Comment on above: Performed By: #### 30117 ####[facility] [place], [place] [address] PORTABLE CHEST 1 VIEWon PORTABLE CHEST [address] [facility] Ofoldwfcf[address] [place] [address] ========Patient Name: DYLON FRANCIS : 1945Sex: MAge: Race: WhiteMRN: [id number]. Location: [id number] Status: IVisit #: [id number] Date: 05/16/2017 8:00:00 AMCompleted Date: 05/16/2017 07:24 AMRequesting Provider: DIAZ TERAN Attending Provider: ROSEMARY MONTGOMERY Report Copy To: Signs & Symptoms: Post Pacemaker/AICD PlacementHistory: Patient history not availableComments: Check Pacemaker/AICD Lead PositionExam: PORTABLE CHEST 1 VIEWAccession #: [id number] PORTABLE CHEST 1 VIEW 05/16/2017 7:24 AM [...] findings. Electronically signed by:Matthew Serrano. Transcribed by: [email or web address], User Resident: GAIL GARCIAElectronically Signed by: MATTHEW SERRANO @ 05/16/2017 10:04 AMI personally read this/these film(s) with this resident Normal [facility] Comment on above: Order Comment: No: Do not add to previou s draw PROTHROMBIN TIMEon 7 INR Coag RelTime (PPP) 1.18 {INR} High 0.91-1.[address] [facility] Comment on above: Order Comment: No: [...] OF ACTION, CLINICALEFFECTIVENESS, AND OPTIMAL THERAPEUTIC RANGE. [id number];108:231S-246S. Performed By: #### 5 0608 ####[facility] [facility].[address] Prothrombin time (PT) Coag time (PPP) 15.1 s High 12.3-14.[address] [facility] Comment on above: Order Comment: No: Do not add to previou s draw Result Comment: ALL RESULTS MUST BE INTERPRETED WITH RESPECT TO BLOOD DRAWING ARTIFACTOR DILUTION ERROR OF ANTICOAGULANT AT THE TIME OF SAMPLING. Performed By: #### 5 0608 ####[facility] [facility].[address] APTTon 05-15-2017 aPTT 31.8 s Normal 25.0-35.[address] [facility] Comment on above: Order Comment: if [...] THIS PURPOSE. Performed By: #### 5 6101, 24224 ####[facility] [facility].[address] BASIC METABOLIC PANELon Calcium 8.8 mg/dL Normal 8.6-10.[address] [facility] Comment on above: Order Comment: if not already doneNo: Do not add to previous draw Performed By: #### 5 6101, 80576 ####[facility] [facility].[address] Chloride 103 mmol/L Normal 98-[address] [facility] Comment on above: Order Comment: if not already doneNo: Do not add to previous draw Performed By: #### 5 610, 12926 ####[facility] [place] [address], [facility] CO2 29 mmol/L Normal 21-[address] [facility] Comment on above: Order Comment: if not already doneNo: Do not add to previous draw Performed By: #### 5 610, 81455 ####[facility] [place] [address], [facility] Creatinine 1.71 mg/dL High 0.70-1.[address] [facility] Comment on above: Order Comment: if not already doneNo: Do not add to previous draw Performed By: #### 5 6101, 55122 ####[facility] [place] [address], [facility] eGFR (black) 48 ml/min/1.73sq m Abnormal >[address] [facility] Comment on above: Order Comment: if not already doneNo: Do not add to previous draw Result Comment: Calc ulation may not be valid for patients over 70 years Performed By: #### 5 610, 39839 ####[facility] [place] [address], [facility] eGFR (non-black) 39 ml/min/1.73sq m Abnormal >[address] [facility] Comment on above: Order Comment: if not already doneNo: Do not add to previous draw Result Comment: Calc ulation may not be valid for patients over 70 years Performed By: #### 5 6101, 04428 ####[facility] [place] [address], [place] Glucose mass conc 94 mg/dL Normal 70-[address] [facility] Comment on above: Order Comment: if not already doneNo: Do not add to previous draw Performed By: #### 5 6101, 23595 ####[facility] [place] [address], [place] Potassium molar conc 4.9 mmol/L Normal 3.5-5.[address] [facility] Comment on above: Order Comment: if not already doneNo: Do not add to previous draw Performed By: #### 5 6101, 29698 ####[facility] Sodium 138 mmol/L Normal 136-[address] [facility] Comment on above: Order Comment: if not already doneNo: Do not add to previous draw Performed By: #### 5 6101, 63740 ####[facility] Urea nitrogen 24 mg/dL Normal 7-[address] [facility] Comment on above: Order Comment: if not already doneNo: Do not add to previous draw Performed By: #### 5 610, 98560 ####[facility] CBC W/DIFFon 05-15-2017 Basophils Auto #/vol (Bld) 0.4 % Normal 0.0-2.[address] [facility] Comment on above: Order Comment: Unknown Performed By: #### 5 102 ####[place] [address] [facility] Eosinophils/100 leukocytes 1.8 % Normal 0.0-5.[address] [facility] Comment on above: Order Comment: Unknown Performed By: #### 5 102 ####[facility] Erythrocyte distribution width Auto Ratio (RBC) 14.9 % Normal 11.5-16.[address] [facility] Comment on above: Order Comment: Unknown Performed By: #### 5 3 ####[facility] Erythrocytes (RBC) 4.72 mill/mm3 Normal 4.30-5.[address] [facility] Comment on above: Order Comment: Unknown Performed By: #### 5 102 ####[facility] [facility].[address] Hematocrit (HCT) 41.0 % Normal 39.0-55.[address] [facility] Comment on above: Order Comment: Unknown Performed By: #### 5 0103 ####[facility] [facility] Hemoglobin mass conc (Bld) 13.1 g/dL Low 13.9-16.[address] [facility] Comment on above: Order Comment: Unknown Performed By: #### 5 0103 ####[place] [address] Lymphocytes/100 leukocytes 14.3 % Low 20.0-40.[address] [facility] Comment on above: Order Comment: Unknown Performed By: #### 5 0103 ####[address] MCH 27.7 pg Normal 24.0-32.[address] [facility] Comment on above: Order Comment: Unknown Performed By: #### 5 0103 ####[place] [address] MCHC mass conc (RBC) 31.9 g/dL Low 32.0-36.[address] [facility] Comment on above: Order Comment: Unknown Performed By: #### 5 0103 ####[place] [address] MCV 86.8 fL Normal 80.0-100.[address] [facility] Comment on above: Order Comment: Unknown Performed By: #### 5 0103 ####[place] [address], [facility] METHOD Normal [facility] Comment on above: Order Comment: Unknown Result Comment: Auto mated differential performedNormal RBC Morphology Performed By: #### 5 0103 ####[facility] [place] [address], [place] MONOS 7.0 % Normal 2-[address] [facility] Comment on above: Order Comment: Unknown Performed By: #### 5 0103 ####[facility] Neutrophils/100 leukocytes 76.5 % High 50-[address] [facility] Comment on above: Order Comment: Unknown Performed By: #### 5 0103 ####[facility] [place] [address], [facility] PLAT CNT 204 Thou/mm3 Normal 100-[address] [facility] Comment on above: Order Comment: Unknown Performed By: #### 5 0103 ####[place] [address] WBC (Leukocytes) 6.1 Thou/mm3 Normal 4.0-10.[address] [facility] Comment on above: Order Comment: Unknown Performed By: #### 5 0103 ####[facility] CHEST AND LATERALon 05-15-[address] [facility] [address] [facility]Department [facility] [address]yt[address]nut[address] [place], [place] [address] ========Patient Name: DYLON FRANCIS : 1945Sex: MAge: Race: WhiteMRN: [id number]. Location: [id number] Status: IVisit #: [id number] Date: 05/15/2017 7:00:00 AMCompleted Date: 05/15/2017 08:35 AMRequesting Provider: VANDANA BLANCO Attending Provider: ROSEMARY MONTGOMERY Report Copy To: Signs & Symptoms: Post Pacemaker/AICD PlacementHistory: Patient history not availableComments: Check Pacemaker/AICD Lead Position, Chest X-ray PA \EANDE\ LAT in Dept ;DO NOT lift affected arm above shoulder. S/P pacemaker/ICD implant. Verify lead placementExam: CHEST AND LATERALAccession #: [id number] CHEST AND LATERAL 05/15/2017 8:35 AM EDT [...] lobe. Electronically signed by:Malika Mendiola. Transcribed by: [email or web address], User Resident: Electronically Signed by: MALIKA MENDIOLA @ 05/15/2017 10:18 AM [address] [facility] Comment on above: Order Comment: if not already doneNo: Do not add to previous draw Cardiovascular Lab Reporton 05-15-2017 Cardiovascular Lab Report [facility] Patient Name: Dylon Francis [facility] MR #: [id number] Physician: Kel Gtzartment of Service Date: 05/14/2017Medicine Birthdate: [birth year]Division of Room #: 3AB [id number] CardiovascularServicesPat[place] [phone] Fax Cardiovascular Laboratory ReportPROCEDURE: Dual-chamber pacemaker implantation.INTAKE ASSESSOR: Vandana Blanco M.D.REASON FOR THE PROCEDURE: Complete [...] andhyponatremia, who presented to the hospital at [place] because he had beenhaving presyncopal episodes and extreme fatigue. His family thought he hada stroke and on 05/13/2017, he was brought to [facility]. The 1st EKG showedhigh-degree AV block [...] aJ-wire. The sheath was then removed and 6-Pakistani sheath was implanted overthe J wire. A double wiring was done. The 6-Pakistani sheath was removed.One of the wires was preserved for later, the other wire had implantationof a new 6-Pakistani lead. After removal of the wire, the ventricular leadwas placed in the RV mid septum with excellent parameters. Subsequently,the sheath was torn, the lead was tied into place. The atrial lead wasthen implanted through a 6-Pakistani sheath that was placed over the otherJ-wire. [...] a Taylor 8 DRT Pro MRI, model #041752, the serial #[id number]. The date of implant is 05/14/2017. The atrial lead is a Biotronik Solia S 45 cm, serial #[id number]. The threshold for the atrial lead is 1.4 V at 0.4 milliseconds, the P wave was 4.4 mV and the impedance is 448 ohms. The ventricular lead is a Biotronik Solia S 53, serial #[id number], model #080827. The threshold for the ventricular lead is [...] Dict: 05/14/2017/05:38 P/Sindy Gtz Trans: 05/15/2017 02:03 P/[id number]: Charlie Stark M.D. [address], [facility] [address] [facility] MAGNESIUM BLOODon 05-15-2017 Magnesium 2.2 mg/dL Normal 1.9-2.[address] [facility] Comment on above: Order Comment: if not already doneNo: Do not add to previous draw Performed By: #### 5 8981, 30197 ####[facility] [facility] [place] [address], [facility] PHOSPHORUS BLOODon 7 Phosphate 3.2 mg/dL Normal 2.5-5.[address] [facility] Comment on above: Order Comment: Unknown Performed By: #### 4 1000, 24060, 49247 ####[facility] [facility] [place] [address], [facility] POC GLUCOSE LABon 05-15-2017 Glucose mass conc 84 mg/dL Normal 70-100 [facility] Comment on above: Performed By: #### [address]3422 ####[place] [address], [facility] Glucose mass conc 72 mg/dL Normal 70-[address] [facility] Comment on above: Performed By: #### 86971, 16780 ####[place] [address], [facility] Glucose mass conc 63 mg/dL Low 70-[address] [facility] Comment on above: Performed By: #### 73325, 00798 ####[place] [address], [facility] Glucose mass conc 60 mg/dL Low 70-[address] [facility] Comment on above: Performed By: #### 12995, 22484 ####[place] [address], [facility] Glucose mass conc 82 mg/dL Normal 70-[address] [facility] Comment on above: Performed By: #### 64600, 88332 ####[place] [address], [facility] Glucose mass conc 68 mg/dL Low 70-[address] [facility] Comment on above: Performed By: #### 48771, 34187 ####[place] [address], [facility] Glucose mass conc 95 mg/dL Normal 70-[address] [facility] Comment on above: Performed By: #### [address] ####[address] PROTHROMBIN TIMEon 7 INR Coag RelTime (PPP) 1.34 {INR} High 0.91-1.[address] [facility] Comment on above: Order Comment: if [...] OF ACTION, CLINICALEFFECTIVENESS, AND OPTIMAL THERAPEUTIC RANGE. [id number];108:231S-246S. Performed By: #### 5 6101, 49674 ####[facility] [facility].[address] Prothrombin time (PT) Coag time (PPP) 16.7 s High 12.3-14.[address] [facility] Comment on above: Order Comment: if not already doneNo: Do not add to previous draw Result Comment: ALL RESULTS MUST BE INTERPRETED WITH RESPECT TO BLOOD DRAWING ARTIFACTOR DILUTION ERROR OF ANTICOAGULANT AT THE TIME OF SAMPLING. Performed By: #### 5 6101, 25087 ####[facility] [facility].[address] APTTon 05-14-2017 aPTT 33.2 s Normal 25.0-35.[address] [facility] Comment on above: Order Comment: if [...] THIS PURPOSE. Performed By: #### 5 6101, 24407 ####[facility] [facility] BASIC METABOLIC PANELon 09-0 Calcium 8.9 mg/dL Normal 8.6-10.[address] [facility] Comment on above: Order Comment: No: Do not add to previou s draw Performed By: #### 1 0070, 75281, 02327 ####[facility] [facility] Chloride 103 mmol/L Normal 98-[address] [facility] Comment on above: Order Comment: No: Do not add to previou s draw Performed By: #### 1 0070, 66050, 01445 ####[facility] [facility] CO2 26 mmol/L Normal 21-[address] [facility] Comment on above: Order Comment: No: Do not add to previou s draw Performed By: #### 1 0070, 71055, 07307 ####[facility] [facility] Creatinine 1.42 mg/dL High 0.70-1.[address] [facility] Comment on above: Order Comment: No: Do not add to previou s draw Performed By: #### 1 0070, 75986, 35161 ####[facility] [place] [address], [facility] eGFR (black) 59 ml/min/1.73sq m Abnormal >[address] [facility] Comment on above: Order Comment: No: Do not add to previou s draw Result Comment: Calc ulation may not be valid for patients over 70 years Performed By: #### 1 0070, 44923, 36197 ####[facility] eGFR (non-black) 49 ml/min/1.73sq m Abnormal >[address] [facility] Comment on above: Order Comment: No: Do not add to previou s draw Result Comment: Calc ulation may not be valid for patients over 70 years Performed By: #### 1 0070, 38732, 54981 ####[facility] [place] [address], [facility] Glucose mass conc 74 mg/dL Normal 70-[address] [facility] Comment on above: Order Comment: No: Do not add to previou s draw Performed By: #### 1 0070, 41091, 49087 ####[facility] [place] [address], [facility] Potassium molar conc 4.3 mmol/L Normal 3.5-5.[address] [facility] Comment on above: Order Comment: No: Do not add to previou s draw Performed By: #### 1 0070, 33033, 82200 ####[facility] [place] [address], [facility] Sodium 136 mmol/L Normal 136-[address] [facility] Comment on above: Order Comment: No: Do not add to previou s draw Performed By: #### 1 0070, 44469, 53060 ####[facility] [place] [address], [facility] Urea nitrogen 24 mg/dL Normal 7-[address] [facility] Comment on above: Order Comment: No: Do not add to previou s draw Performed By: #### 1 0070, 44502, 19263 ####[facility] [place] [address], [facility] CBC COMPLETE BLOOD COUNTon 0 05-14-2017 Erythrocyte distribution width Auto Ratio (RBC) 14.9 % Normal 11.5-16.[address] [facility] Comment on above: Order Comment: No: Do not add to previou s draw Performed By: #### 5 0608 ####[facility] [facility].[address] Erythrocytes (RBC) 4.51 mill/mm3 Normal 4.30-5.[address] [facility] Comment on above: Order Comment: No: Do not add to previou s draw Performed By: #### 5 0608 ####[facility] [facility].[address] Hematocrit (HCT) 39.1 % Normal 39.0-55.[address] [facility] Comment on above: Order Comment: No: Do not add to previou s draw Performed By: #### 5 0608 ####[address] Hemoglobin mass conc (Bld) 12.6 g/dL Low 13.9-16.[address] [facility] Comment on above: Order Comment: No: Do not add to previou s draw Performed By: #### 5 0608 ####[facility] MCH 28.0 pg Normal 24.0-32.[address] [facility] Comment on above: Order Comment: No: Do not add to previou s draw Performed By: #### 5 0608 ####[facility] [facility].[address] MCHC mass conc (RBC) 32.3 g/dL Normal 32.0-36.[address] [facility] Comment on above: Order Comment: No: Do not add to previou s draw Performed By: #### 5 0608 ####[facility] [place] [address] MCV 86.9 fL Normal 80.0-100.[address] [facility] Comment on above: Order Comment: No: Do not add to previou s draw Performed By: #### 5 0608 ####[facility] [facility] [place] [address], [facility] PLAT CNT 210 Thou/mm3 Normal 100-[address] [facility] Comment on above: Order Comment: No: Do not add to previou s draw Performed By: #### 5 0608 ####[facility] [facility] WBC (Leukocytes) 6.3 Thou/mm3 Normal 4.0-10.[address] [facility] Comment on above: Order Comment: No: Do not add to previou s draw Performed By: #### 5 [id number] ####[facility].[address] MAGNESIUM BLOODon 05-14-2017 Magnesium 2.1 mg/dL Normal 1.9-2.[address] [facility] Comment on above: Order Comment: No: Do not add to previou s draw Performed By: #### 1 0070, [id number], [id number] ####[facility] PHOSPHORUS BLOODon 7 Phosphate 2.9 mg/dL Normal 2.5-5.[address] [facility] Comment on above: Order Comment: No: Do not add to previou s draw Performed By: #### 1 0070, [id number], [id number] ####[facility] PROTHROMBIN TIMEon 7 INR Coag RelTime (PPP) 1.52 {INR} High 0.91-1.[address] [facility] Comment on above: Order Comment: No: [...] OF ACTION, CLINICALEFFECTIVENESS, AND OPTIMAL THERAPEUTIC RANGE. [id number];108:231S-246S. Performed By: #### 5 6101 ####[facility] Prothrombin time (PT) Coag time (PPP) 18.5 s High 12.3-14.[address] [facility] Comment on above: Order Comment: No: Do not add to previou s draw Result Comment: ALL RESULTS MUST BE INTERPRETED WITH RESPECT TO BLOOD DRAWING ARTIFACTOR DILUTION ERROR OF ANTICOAGULANT AT THE TIME OF SAMPLING. Performed By: #### 5 6101 ####[facility].[address] INR Coag RelTime (PPP) 1.58 {INR} High 0.91-1.[address] [facility] Comment on above: Order Comment: if [...] OF ACTION, CLINICALEFFECTIVENESS, AND OPTIMAL THERAPEUTIC RANGE. [id number];108:231S-246S. Performed By: #### 5 6101, [id number] ####[facility].[address] Prothrombin time (PT) Coag time (PPP) 19.1 s High 12.3-14.[address] [facility] Comment on above: Order Comment: if not already doneNo: Do not add to previous draw Result Comment: ALL RESULTS MUST BE INTERPRETED WITH RESPECT TO BLOOD DRAWING ARTIFACTOR DILUTION ERROR OF ANTICOAGULANT AT THE TIME OF SAMPLING. Performed By: #### 5 6101, [id number] ####[facility].[address] Encounters Encounter Date Encounter Type Care Provider Facility Start: 04-25-2025 ambulatory ERNIE [facility] Start: 03-21-2025 End: 03-21-2025 ambulatory Fernandez ROBLERO Facility:JAIME Flaherty Start: 03-21-2025 End: 03-21-2025 Patient encounter procedure Fernandez ROBLERO [facility] Krystina Start: 02-21-2025 ambulatory Fernandez ROBLERO Facility:Aicha Flaherty Start: 02-06-2025 End: 02-06-2025 ambulatory [facility] Start: 01-31-2025 ambulatory [facility] Start: 01-06-2025 ambulatory [facility] Start: 12-27-2024 End: 12-27-2024 ambulatory [facility] Start: 08-22-2024 End: 08-22-2024 ambulatory [facility] Start: 06-28-2024 End: 06-28-2024 ambulatory [facility] Start: 06-03-2024 End: 06-03-2024 ambulatory [facility] Start: 01-05-2023 End: 02-04-2023 ambulatory GONSALEZ H FAWWAD Facility:[facility] Start: 12-08-2022 End: 01-02-2023 ambulatory GONSALEZ H FAWWAD Facility:[facility] Start: 11-05-2022 End: 12-05-2022 ambulatory GONSALEZ H FAWWAD Facility:[facility] Start: 10-08-2022 End: 11-05-2022 ambulatory GONSALEZ H FAWWAD Facility:[facility] Start: 09-08-2022 End: 10-08-2022 ambulatory GONSALEZ H FAWWAD Facility:[facility] Start: 08-26-2022 End: 08-26-2022 Patient encounter procedure DOMINGO MEJIA [facility] Start: 08-25-2022 End: 08-26-[address] CHARLIE STARK . Facility:[facility] Start: 08-07-2022 End: 09-07-2022 ambulatory GONSALEZ H FAWWAD Facility:[facility] Start: 07-08-2022 End: 08-06-2022 ambulatory GONSALEZ H FAWWAD Facility:[facility] Start: 07-01-2022 End: 07-01-2022 ambulatory REGGIE BING Facility:[facility] Start: 06-08-2022 End: 07-07-2022 ambulatory [facility] Facility:[facility] Start: 05-08-2022 End: 06-07-2022 ambulatory GONSALEZ H FAWWAD Facility:[facility] Start: 05-06-2022 End: 05-07-2022 ambulatory REGGIE BING Facility:[facility] Start: 04-16-2022 End: 04-17-2022 ambulatory REGGIE BING Facility:[facility] Start: 04-07-2022 End: 05-07-2022 ambulatory GONSALEZ H FAWWAD Facility: Start: 03-07-2022 End: 04-04-2022 ambulatory SHAIKH Jason FAYE Facility: Start: 06-10-2017 End: 06-12-2017 Ambulatory TIGIST HUANG Facility:[facility] Start: 06-04-2017 End: 06-13-2017 Ambulatory PROVIDER UNKNOWN Facility:[facility] Start: 06-02-2017 End: 06-03-2017 Ambulatory DEFAULT PHYSICIAN Facility:[facility] Start: 05-14-2017 End: 05-16-2017 Evaluation and management of inpatient DORCAS CHIN Facility:[facility] Procedures Date Procedure Procedure Detail Performing Clinician Start: 08-25-2022 PSA screening SHAIKH MARTY MEI Comment on above: Performed By: #### P SAD #### [facility] [address] [place] [address] Dr. Wili Cardona Start: 05-15-2017 REVISION OF CARDIAC LEAD IN HEART, PERCUTANEOUS APPROACH DORCAS CHIN Start: 05-14-2017 INSERT PACE. DUAL CH AM IN CHEST SUBCU/FASCIA, OPEN ARIANA KARIM Start: 05-14-2017 INSERTION OF PACEMAK ER LEAD INTO R VENTRICLE, PERC APPROACH ARIANA KARIM Start: 05-14-2017 INSERTION OF PACEMAK ER LEAD INTO RIGHT ATRIUM, PERC APPROACH ARIANA Yonghong TechIM Start: 03-12-2016 Transurethral prostatectomy DOMINGO MEJIA Start: 02-08-2016 Cystourethroscopy wi dilation of urethral stricture DOMINGO MEJIA Start: 07-06-2013 Laser ablation of prostate DOMINGO MEJIA Amputation of finger , except thumb DOMINGO MEJIA Comment on above: Rt. hand pinky finge r Cataract surgery DOMINGO MICHELLE HAYNES Circumcision DOMINGO MEJIA Colonoscopy DOMINGO MEJIA Coronary artery sten t (physical object) Fernandez ROBLERO Implantation of card iac pacemaker DOMINGO MEJIA Insertion of inferio r vena caval filter Fernandez ROBLERO Intestinal obstructi on (disorder) Fernandez CONNOLLYL Placement of stent i n cardiac conduit DOMINGO MEJIA Procedure on back DOMINGO FARAH Procedure on knee DOMINGO FARAH Repair of meniscus Fernandez LARA Tonsillectomy and adenoidectomy DOMINGO MEJIA Immunizations Immunization Date Immunization Notes Care Provider Fa [facility] 05-31-2024 influenza virus vaccine, unspecified formulation Fernandez CONNOLLYL [facility] 07-23-2022 SARS-CoV-2 (COVID-19 ) mRNAMUL.[id number] Fernandez CONNOLLYL [facility] [place] 09-11-2021 SARS-CoV-2 (COVID-19 ) mRNA BNT-162b2 vax Fernandez CONNOLLYL [facility] [place] 12-04-2020 SARS-CoV-2 (COVID-19 ) mRNA BNT-162b2 vax Fernandez CONNOLLYL [facility] [place] 11-12-2020 SARS-CoV-2 (COVID-19 ) mRNA BNT-162b2 vax Fernandez CONNOLLYL [facility] Payers Date Payer Category Payer Medicare [id number] 2019 Private Health Insurance [id number] 1959 Medicare [id number] 1959 Private Health Insurance [id number] 1945 Unknown [id number] 2.16.84 [id number] 04-194 Unknown [id number] 2.16.84 0.1.765685.3.579.2.593 1945 Unknown [id number] 2.16.84 0.1.849086.3.579.2.593 -194 Unknown [id number] 2.16.84 0.1.064317.3.579.2.593 1945 Unknown [id number] 2.16.84 0.1.619960.3.579.2.593 1943 Unknown [id number] 2.16.84 0.1.976039.3.579.2.593 1943 Unknown [id number] 2.16.84 0.1.236317.3.579.2.593 1943 Unknown [id number] 2.16.84 0.1.735151.3.579.2.593 1943 Unknown [id number] 2.16.84 0.1.308894.3.579.2.593 1943 Unknown [id number] 2.16.84 0.1.445983.3.579.2.593 1943 Unknown [id number] 2.16.84 0.1.141369.3.579.2.593 1943 Unknown [id number] 2.16.84 0.1.433351.3.579.2.593 1943 Unknown [id number] 2.16.84 0.1.262659.3.579.2.593 1943 Unknown [id number] 2.16.84 0.1.443301.3.579.2.593 1943 Unknown [id number] 2.16.84 0.1.280204.3.579.2.593 1945 Unknown [id number] 2.16.8 40.1.961318.3.579.2.727 Medicare [id number] Unknown Social History Date Type Detail Facility Start: 08-26-2022 End: 03-21-2025 Tobacco smoking status Ex-smoker (finding) [facility] Tobacco smoking status Never [facility] Sex Assigned At Male [facility] Sexual Orientation [facility] [place] Start: 12-19-2009 Sex Male (finding) [facility] Functional Status Date Assessment Result Facility 08-26-2022 Functional Status N/A [facility] Progress note 02-06-2025 Note Date & Type Note Facility 02-06-2025 Note [facility] Subjective Dylon Francis is a [...] placement in 2006. He was evaluated at [facility] and then at [facility] for thrombosed IVC filter and was told that conservative management is the best option. Previously he was admitted to [facility] with high grade AV block and [...] No swelling. Ce (more content not included)... [facility] Progress note 08-22-2024 Note Date & Type Note Facility 08-22-2024 Note [place] [facility] Subjective Dylon Francis is [...] placement in 2006. He was evaluated at [facility] and then at [facility] for thrombosed IVC filter and was told that conservative management is the best option. Previously he was admitted to [facility] with high grade AV block and [...] Pulmonary effort is normal. No respiratory distress. [place] (more content not included)... [facility] Progress note 06-03-2024 Note Date & Type Note Facility 06-03-2024 Note [facility] Subjective Dylon Francis is [...] (CMS/HCC) IVC thrombosis (CMS/HCC) BMI 40.0-44.9, adult ([facility]/HCC) Nocturia Obesity Morbid obesity ([facility]/HCC) Pain in both lower extremities Paroxysmal atrial fibrillation (CMS/HCC) Peripheral vascular disease (CMS/HCC) Poor urinary stream Weak urine stream Primary hypertension Stage 3 chronic kidney disease (CMS/HCC) Swelling of lower leg Type 2 diabetes mellitus without complication (CMS/HCC) Urge incontinence Urinary hesitancy Anemia Cardiac pacemaker in situ Daily use of moist tobacco Diabetes mellitus ([facility]/HCC) History of deep venous thrombosis Osteoarthritis Pulmonary [...] placement in 2006. He was evaluated at [facility] and then at [facility] for thrombosed IVC filter and was told that conservative management is the best option. Previously he was admitted to [facility] with high grade AV block and [...] Palpations: Abdomen is (more content not included)... [facility] Hospital Discharge instructions 08-26-2022 Note Date [...] urethra. Follow these instructions at home: Take xckk-nit-sgexnfr and prescription medicines only as told by [...] 08/24/2006 Document Revised: 07/19/2019 Document Reviewed: 09/28/2017 [employer] Patient Education [employer]. Follow Up Care 09/03/2021 12:26:25 With:JACKIE WELLS, DOMINGO Callahan, URL Address: [address] [place] [address]. [place] [address] [phone] When: Unknown Comments:PRN [facility] Evaluation + Plan note Note Date & Type Note Facility Evaluation + Plan note No data available for this section [facility] Hospital Discharge instructions Note Date & Type Note Facility Hospital Discharge instructions No data available for this section [facility] [place] Progress note Note Date & Type Note Facility Progress note No data available for this section [facility] Summary Purpose Family History No Family History Records FoundNo Family History Records Found No data available for this section No Family History Records FoundNo Family History Records Found Advance Directives No Advanced Directives Records FoundNo Advanced Directives Records FoundNo Advanced Directives Records FoundNo Advanced Directives Records Found Additional Source Comments (unrecognized sect ion and content) No Status Records FoundNo Status Records FoundNo Status Records FoundNo Status Records Found INFORMATION SOURCE (unrecogn ized section and content) DATE CREATED AUTHOR 03/02/2018 [facility] DATE CREATED AUTHOR AUTHOR'S ORGANIZ ATION 02/13/2023 [facility] DATE CREATED AUTHOR AUTHOR'S ORGANIZ ATION 03/25/2025 [facility] DATE CREATED AUTHOR AUTHOR'S ORGANIZ ATION 04/27/2025 [facility] Patient Care team informatio n (unrecognized section and content) Personnel Name: Charlie Stark MD Address: Address: [address] [place] [address] Personnel Name: Charlie Stark MD Address: [address] [place] [address] [employer]: FOR RECORDS PERTAINING TO PATIENTS WHO ARE [...] BE BASED ON THE PRIMARY CLINICAL RECORDS. [facility]. provides no warranty or guarantee of the accuracy or completeness of information in this document.
[2025-04-29 04:07] LABS: CA 19-9 20 U/mL (0-35); CEA 2.5 ng/mL (0.0-4.7)
== END 2025-04-28 12:18 | disposition home or self-care (01) ==
LOC: LAB 12:17
PROVIDERS: PCP Family Medicine; Visit Provider Family Medicine
DX: R79.89 Other specified abnormal findings of blood chemistry (principal); R53.83 Other fatigue; M25.50 Pain in unspecified joint
CPT/HCPCS: 36415; 82378; 85652; 86140; 86301

== ENCOUNTER 2025-05-08 03:13 | Outpatient (RCR) | payer MEDICARE, OTHER, SELFPAY | END 2025-06-06 15:03 | disposition home health service, planned readmission (86) | LOC: MM 03:13 | PROVIDERS: PCP Family Medicine; Visit Provider Family Medicine | DX: Z51.81 Encounter for therapeutic drug level monitoring (principal); Z79.01 Long term (current) use of anticoagulants; I82.409 Acute embolism and thrombosis of unspecified deep veins of unspecified lower extremity ==

== ENCOUNTER 2025-06-07 05:24 | Outpatient (RCR) | payer MEDICARE, OTHER, SELFPAY | END 2025-07-07 23:59 | disposition home or self-care (01) | LOC: MM 05:24 | PROVIDERS: PCP Family Medicine; Visit Provider Family Medicine | DX: Z51.81 Encounter for therapeutic drug level monitoring (principal); Z79.01 Long term (current) use of anticoagulants | CPT/HCPCS: 85610; G0463 ==

== ENCOUNTER 2025-06-08 07:19 | Outpatient (OUT) | payer MEDICARE, OTHER, SELFPAY ==
--- OUTSIDE RECORDS SUMMARY | 2025-04-25 18:32 | XMS_ITS ---
Author Name Auto Generated Organization [facility] Care Team Providers Care Heart Nurse Name Role Phone Fernandez ROBLERO Attending Unavailable John Stark Referring Unavailable ERNIE PRINGLE Referring Unavailable EDUARD HOPSON Attending Unavailable EDUARD HOPSON Attending Unavailable ERNIE PRINGLE Referring Unavailable PINOERNIE Woodward Referring Unavailable PINO, ERINE Referring Unavailable ERNIE PRINGLE Referring Unavailable PROBLEMS DATE TYPE CONDITION / CODE ATTENDING STATUS [facility] 08/24/2023 Admitting Diagnosis Personal history of other venous thrombosis and embolism / Z86.718(ICD-10) FOZIA [facility] 08/24/2023 Admitting Diagnosis Presence of cardiac pacemaker / Z95.0(ICD-10) EDUARD HOPSON [facility] 10/22/2022 Admitting Diagnosis Atherosclerotic heart disease of [place] coronary artery with other forms of angina pectoris / I25.118(ICD-10) FOZIA [facility] 10/22/2022 Admitting Diagnosis Paroxysmal atrial fibrillation / I48.0(ICD-10) FOZIA [facility] 10/22/2022 Admitting Diagnosis Essential (primary) hypertension / I10(ICD-10) FOZIA [facility] 10/22/2022 Admitting Diagnosis Mixed hyperlipidemia / E78.2(ICD-[facility] Admitting Diagnosis 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 / I82.220(ICD-10) [facility] Admitting Diagnosis Chronic diastolic (congestive) heart failure / I50.32(ICD-10) [facility] Admitting Diagnosis Presence of coronary angioplasty implant and graft / Z95.5(ICD-10) [facility] Admitting Diagnosis Personal history of pulmonary embolism / Z86.711(ICD-10) [facility] Admitting Diagnosis Encounter for adjustment and management of other part of cardiac pacemaker / Z45.018(ICD-10) [facility] 12/27/2024 Admitting Diagnosis Encounter for adjustment and management of automatic implantable cardiac defibrillator / Z45.02(ICD-10) [facility] 08/22/2024 Admitting Diagnosis Chronic systolic (congestive) heart failure / I50.22(ICD-10) [facility]ED[facility] No Procedure Records Found RESULTS GENERAL SURGERY OFFICE/CLINI C NOTE Observed: 03/21/2025 1:16 PM Status: F Source: [facility] General Surgery Office/Clini c Note HPI Staff 79 year old male presents on consultation from Dr. Stark for skin lesions. Reports 2 lesions; one to mid to lower right back and one to mid to lower left back. He is unsure how long either lesions have been present. Reports the lesion on left is occasional sore; no soreness from right lesion. Denies bleeding or drainage. History of Present Illness 79 yo male with h/o CAD, MT, PE, paroxysmal atrial fibrillation, on chronic warfarin, htn, hyperlipidemia, STACEY, Sjogren syndrome; bph, second degree heart block, GERD, DMII, referred for skin lesions of lower back; present for many years; lesion on left lower back has become swollen and painful several times; drained by his daughter once; now not sore; lesion on right lower back no changes or pain; no personal h/o skin cancer;on baby asa and warfarin daily; no tobacco use. Review of Systems PHQ Score Initial Depression Screen Score: 0 SCORE ROS - Provider Constitutional: no fever, no sweats, no weight loss. Eyes: yes glasses, no blurred vision, no visual loss. ENMT: no dentures, no hoarseness, no swallowing difficulties, no hearing loss, no ear infection(s), no nose bleeds. Cardiovascular: normal blood pressure, no chest pain, regular heartbeat, no heart murmur. Respiratory: no shortness of breath, no cough, no asthma, no wheezing. Gastrointestinal: no nausea, no vomiting, no diarrhea, no constipation, no blood in stool, no change in bowel habits, no abdominal pain, no hepatitis. Genitourinary: no kidney stones, no urine infection, no dysuria. Musculoskeletal: yes pain, yes weakness. Skin: no changing moles, no rash, no skin lumps. Neurologic: no seizures, no epilepsy, no headache. Psychiatric: no emotional or psychiatric problem. Heme/Lymph: no bleeding problems, no anemia, no blood clots, no transfusions. Allergy/Immunologic: no swollen lymph nodes/glands, no IV drug abuse. Other: Additional ROS info: Except as noted in the above Review of Systems and in the History of Present Illness, all other systems have been reviewed and are negative or noncontributory. Physical Exam Vitals & Measurements HR: 72(Peripheral) RR: 16 BP: 128/88 HT: 177.8 cm HT: 70 in WT: 211.644 lb WT: 96 kg BMI: 30.37 Musculoskeletal: abnormal gait, digits and nails without infection, nodes, cyanosis, clubbing. Skin: no rashes, left lower back with superficial 8 mm epidermal cyst, no open areas, nontender, mild erythema; right lower back with dark raised area, 7 mm, nontender, no ulceration no ulcers, no subcutaneous nodules, induration. Psychiatric/Neuro: oriented to time, place, person, judgement normal, affect appropriate for age, insight intact, no focal deficits. Tests:, review of old records completed , Discussed surgical options, risks, and possible complications with patient. Assessment/Plan 1. Epidermal cyst (L72.0: Epidermal cyst) small epidermal cyst on left back, possible seborrheic keratosis verses dried, open epidermal cyst on right; asymptomatic now; patient does not wish intervention unless it is necessary; observe for now; no suspicious features; call with problems/questions. Follow-up No qualifying data available Problem List/Past Medical History Ongoing 2nd degree AV block BMI 30.0-30.9,adult BPH with urinary obstruction CAD - Coronary artery disease Depression Diabetes mellitus Diastolic heart failure Epidermal cyst GERD (gastroesophageal reflux disease) History of DVT of lower extremity History of myocardial infarction History of pulmonary embolism Hyperlipidemia Hypertension nursing home current use of anticoagulant Obesity due to excess calories STACEY (obstructive sleep apnea) Paroxysmal atrial fibrillation PVCs (premature ventricular contractions) PVD-peripheral vascular disease Sjogren syndrome Stage 3 chronic kidney disease Historical Myocardial infarction Sleep apnea Procedure/Surgical History TURP - Transurethral resection of prostate (03/12/2016), Cystourethroscopy with dilation of urethral stricture (02/08/2016), Laser ablation of prostate (07/06/2013), Amputation of finger, Bowel obstruction, Cataract surgery, Circumcision, Colonoscopy, Coronary artery stent, Implantation of heart pacemaker, Insertion of inferior vena caval filter, Meniscal repair, Procedure on back, Tonsillectomy and adenoidectomy. Medications amitriptyline 25 mg Tab, Oral, Once a day (at bedtime) aspirin 81 mg Oral EC Tab, 81 mg= 1 tab(s), Oral, Daily Colace 100 mg Cap, 100 mg= 1 cap(s), Oral, BID, PRN Coreg 6.25 mg Tab, 18.75 mg= 3 tab(s), Oral, BID Entresto 24 mg-26 mg oral tablet, 1 tab(s), Oral, BID Farxiga 10 mg oral tablet, 10 mg= 1 tab(s), Oral, Daily ferrous sulfate 325 mg Tab, 325 mg= 1 tab(s), Oral, BID isosorbide mononitrate 30 mg ER Tab, Oral, qAM Leqvio 284 mg/1.5 mL subcutaneous solution, 284 mg, SubCutaneous, q6mo melatonin 10 mg oral tablet, 10 mg= 1 tab(s), Oral, Once a day (at bedtime) omeprazole 40 mg Cap-DR, Oral, Daily spironolactone 25 mg Tab, 12.5 mg= 0.5 tab(s), Oral, Daily temazepam 30 mg Cap, 30 mg= 1 cap(s), Oral, Once a day (at bedtime), PRN Vitamin D2 2000 intl units oral capsule, 50 mcg= 1 cap(s), Oral, Daily warfarin, Oral, Daily Zetia 10 mg Tab, 10 mg= 1 tab(s), Oral, Daily Allergies CeleBREX (Itching) statins (Unknown) Social History Alcohol - Denies Alcohol Use, 06/03/2019 Substance Abuse - Denies Substance Abuse, 06/03/2019 Tobacco Former smoker, quit more than 30 days ago Tobacco Use:. Never Smokeless Tobacco Use:. Cigarettes, 2 per day. Started age 15.0 Years. Stopped age 38 Years., 03/21/2025 Family History Family history is negative Immunizations Vaccine Date Status influenza virus vaccine, inactivated 05/31/2024 Recorded SARS-CoV-2 (COVID-19) [id number] 07/23/2022 Recorded SARS-CoV-2 (COVID-19) mRNA BNT-162b2 vax 09/11/2021 Recorded SARS-CoV-2 (COVID-19) mRNA BNT-162b2 vax 12/04/2020 Recorded SARS-CoV-2 (COVID-19) mRNA BNT-162b2 vax 11/12/2020 Recorded Result Comment: Electronical ly Signed By: OSBALDO DELGADO, Fernandez Aly\Date and Time Signed: 03/21/25 14:29 EDT OFFICE VISIT Observed: 02/06/2025 2:00 PM Status: COMPLETED Source: [facility] [id number] Dylon Francis 12/1945 Date Provider Department Center 02/06/2025 EDUARD [facility] Krystina Hodges Family History Adopted: Yes Family Status - Relation Status Age at Mother Father Level of Service:83858 [place] OFFICE/OUTPATIENT ESTABLISHED MOD MDM 30 MIN PROGRESS Observed: 02/06/2025 2:00 PM Status: COMPLETED Source: [facility] Cardiology - Krystina Hodges [facility] Subjective Dylonbal Francis is a 79 y.o. year old [...] Daily use of moist tobacco Diabetes mellitus ([facility]/HCC) History of deep venous thrombosis Osteoarthritis Pulmonary embolism ([facility]/HCC) Sleep apnea Vitamin D deficiency Irritable bowel [...] placement in 2006. He was evaluated at [facility] and then at [facility] for thrombosed IVC filter and was [...] normal. Allergies Allergies Allergen Reactions Celecoxib Itching Fwdetcq-Wzf-Bef Reductase Inhibitors Other and Rash Medications Current [...] (10 mg) by mouth once daily as directed., Disp: 90 tablet, Rfl: 3 ferrous sulfate 325 (65 Fe) MG tablet, every 12 (twelve) hours., Disp: , Rfl: inclisiran (Leqvio) 284 mg/1.5 mL syringe, Inject 1.5 mL (284 mg) under the skin every 6 (six) months. (Inject 1.5mL in Oct 2024 and again in Apr 2025.), Disp: 2 mL, Rfl: 0 insulin aspart (NovoLOG) 100 unit/mL injection vial, Inject 100 Units under the skin with breakfast, with lunch, and with evening meal., Disp: , Rfl: isosorbide mononitrate ER (Imdur) 30 mg 24 [...] (10 mg) by mouth in the morning. (Patient not taking: Reported on 02/06/2025), Disp: 90 tablet, Rfl: 3 sacubitril-valsartan (Entresto) 24-26 mg tablet, Take 1 tablet by mouth two times daily. (Patient not taking: Reported on 02/06/2025), Disp: 180 tablet, Rfl: 3 Recent Labs No visits with results within 6 Month(s) from this visit. Latest known visit with results is: Legacy Encounter on 06/07/2019 Component Date Value Ventricular Rate 06/07/2019 67 Atrial Rate 06/07/2019 67 TN Interval 06/07/2019 184 QRS DURATION 06/07/2019 180 QT Interval 06/07/2019 478 QTC CALCULATION(BEZET) 06/07/2019 505 P Fulton 06/07/2019 41 R-Fulton 06/07/2019 -6 T Wave Fulton 06/07/2019 94 Diagnosis 06/07/2019 Value:Normal sinus rhythm Left bundle branch block Abnormal ECG When compared with ECG of 11-JUN-2017 19:56, Previous ECG has undetermined rhythm, needs review QRS duration has increased T wave inversion no longer evident in Anterior leads Confirmed by STRESS, ([id number]), makeup editor Meche Alatorre ([id number]) on 06/07/2019 12:11:31 PM Blood testing 03/13/2023: Hemoglobin 12.5, platelets 263, potassium 3.4, BUN 18, creatinine 1.2, EGFR 58 LFTs normal, triglycerides 73, cholesterol 141, LDL 72, HDL 54. Blood testing 04/08/2024: LFTs normal, triglycerides 77, cholesterol 137, HDL 60, LDL 62. Blood testing 06/02/2024: Potassium 4.5, BUN 22, creatinine 1.18, EGFR 59. Imaging and other tests Echocardiogram 01/24/2025: 1. Moderate concentric ventricular hypertrophy with low normal systolic function. LVEF is estimated at 50%. 2. Normal right ventricular size and systolic function. 3. No significant valvular dysfunction. 4. Moderate left atrial dilatation. 5. Mildly elevated right-sided pressures. RVSP is 44 mmHg. Cardiac device check 12/27/2024: No events. Normal function. Echocardiogram 08/02/2024: The left ventricle is normal [...] renal artery stenosis; Echocardiogram 02/14/2015 at the [facility]: preserved LV systolic function, moderate [...] Diagnoses and all orders for this visit: Heart failure with improved ejection fraction (HFimpEF) (CMS/HCC) Paroxysmal atrial fibrillation (CMS/HCC) Primary hypertension Mixed hyperlipidemia - ezetimibe (Zetia) 10 mg tablet; Take 1 tablet (10 mg) by mouth once daily as directed. Coronary artery disease of [place] artery of [place] heart with stable angina pectoris - ezetimibe (Zetia) 10 mg tablet; Take 1 tablet (10 mg) by mouth once daily as directed. History of coronary artery stent placement IVC thrombosis (CMS/HCC) History of deep venous thrombosis Hx pulmonary embolism Cardiac pacemaker in situ Heart failure with improved ejection fraction: He had new onset systolic heart failure with an ejection fraction 35 to 40% by echocardiography 03/2024. In the absence of ischemia there is no need for cardiac catheterization. This most likely related to RV pacing. After optimizing GDMT his follow-up echocardiogram in July 2024 showed LVEF at 40%. His most recent echocardiogram January 2025 showed improvement in ejection fraction to 50%. I reassured him. Given improvement in ejection fraction he does not need MEAT CARVER. Continue current GDMT for heart failure. He is not taking Farxiga due to cost. we called his and his pharmacy to confirm his medications. Coronary artery disease: s/p stenting of the [...] Completely dependent on pacemaker and pacing 100%. Recent device check showed normal function and no events. Hypertension: His blood pressure is elevated today but usually is well-controlled. Continue to monitor. Thrombosed IVC filter: medical therapy, he continues to be on warfarin. Paroxysmal atrial fibrillation: Picked up on device check. He is already on warfarin therapy. He should continue that. Follow up in about 6 months (around 08/08/2025). Eduard Hopson MD ORDERS ONLY Observed: 01/20/2025 12:00 AM Status: COMPLETED Source: [facility] [id number] Dylon Francis 12/1945 Date Provider Department Center 01/20/2025 ERNIE GUILLAUME [facility]ARD [facility] Family History Adopted: Yes ORDERS ONLY Observed: 09/08/2024 12:00 AM Status: COMPLETED Source: [facility] [id number] Dylon Francis 12/1945 M Date Provider Department Center 09/08/2024 928-[facility] Krystina [facility] Family History Adopted: Yes OFFICE VISIT Observed: 08/22/2024 11:15 AM Status: COMPLETED Source: [facility] [id number] Dylon Francis 12/1945 Date Provider Department Center 08/22/2024 Vivien[facility] Krystina [facility] Family History Adopted: Yes Level of Service:28788 [place] OFFICE/OUTPATIENT ESTABLISHED MOD MDM 30 MIN PROGRESS Observed: 08/22/2024 11:15 AM Status: COMPLETED Source: [facility] Cardiology - [facility] pital Clinic Subjective Dylon Francis is a [...] placement in 2006. He was evaluated at [facility] and then at [facility] for thrombosed IVC filter and was [...] normal. Allergies Allergies Allergen Reactions Celecoxib Itching Etpsuog-Pyd-Bru Reductase Inhibitors Other and Rash Medications Current [...] Rate 06/07/2019 67 Atrial Rate 06/07/2019 67 TN Interval 06/07/2019 184 QRS DURATION 06/07/2019 180 QT Interval 06/07/2019 478 QTC CALCULATION(BEZET) 06/07/2019 505 P Fulton 06/07/2019 41 R-Fulton 06/07/2019 -6 T Wave Fulton 06/07/2019 94 Diagnosis 06/07/2019 Value:Normal sinus rhythm Left bundle branch block Abnormal ECG When compared with ECG of 11-JUN-2017 19:56, Previous ECG has undetermined rhythm, needs review QRS duration has increased T wave inversion no longer evident in Anterior leads Confirmed by STRESS, (55), makeup editor Meche Alatorre ([id number]) on 06/07/2019 12:11:31 PM Blood testing 03/13/2023: [...] renal artery stenosis; Echocardiogram 02/14/2015 at the [facility]: preserved LV systolic function, moderate [...] hypertension Mixed hyperlipidemia Coronary artery disease of [place] artery of [place] heart with stable angina pectoris (CMS/HCC) History [...] again today discussed the possible need for MEAT CARVER pacing if the ejection fraction does not continue to improve or even declines further. For now he is asymptomatic and the ejection fraction being at 40% I am going to keep monitoring and repeat an echo in 6 months. At that time we can make a final determination for the need for MEAT CARVER pacing. Coronary artery disease: s/p stenting of [...] the future if there is need for MEAT CARVER upgrade. Hypertension: His blood pressure is controlled. Thrombosed IVC filter: medical therapy, he continues to be on warfarin. Paroxysmal atrial fibrillation: Picked up on device check. He is already on warfarin therapy. He should continue that. Follow up in 6 months with echocardiogram. Follow up in about 6 months (around 02/20/2025). Eduard Hopson MD ALLERGIES DATE TYPE / CODE NAME / CODE REACTION SEVERITY SOURCE 08/25/2014 DRUG INGREDI/662754 003(SNOMED CT) CELECOXIB Itching [facility] 08/25/2014 Drug Class/[id number] 3(SNOMED CT) LZZCWFY-RGZ-MDV REDUCTASE INHIBITORS Other~Rash Low [facility] [id number](S NOMED CT) CeleBREX [id number] [facility] [id number](S NOMED CT) statins [id number] [facility] ENCOUNTERS ADMIT/DISCHARGE ACCOUNT NUMBER ADMITTING ENCOUNTER CLASS LOCATION SOURCE 04/25/2025 [id number] Ambulatory Building:[facility] 03/21/2025/ 5 [id number] [facility] [place] [place] [place] [facility] 02/21/2025 [id number] [facility] [place] [place] [facility] 02/06/2025/ 5 [id number] Ambulatory Building:[facility] 01/31/2025 [id number] Ambulatory Building:[facility] 01/06/2025 [id number] Ambulatory Building:[facility] 12/27/2024/ 5 [id number] Ambulatory Building:[facility] 08/22/2024/ 4 [id number] Ambulatory Building:[facility] 06/28/2024/ 4 [id number] Ambulatory Building:[facility] PAYERS ENCOUNTER GUARANTOR PAYER SUBSCRIBER SOURCE 03/21/2025 DYLON LOWE: [id number] [address]Tel: ~[phone]) Primary Insurance:MEDICAREPolic y Number: [id number] Date:[id number], [place] [address]TA: DYLON YAO [facility] 03/21/2025 [facility]: [id number] Date:8854-79-23[address] [address], [place] [address]QK: DYLON YAO [facility] 02/06/2025 Primary Insurance:MEDICAREPolic y Number: [id number] Date:[id number] Name:Medicare RONNIE K WELLSDOB: [id number] [place] [address] [facility] 02/06/2025 Secondary Insurance:[facility]Policy Number: [id number] Date:2024-09-07 DYLON AGB: [id number] [place] [address] [facility] 01/31/2025 Primary Insurance:[facility] MEDICAREPolicy Number: [id number] Date:2024-09-07 DYLON AGB: [id number] [place] [address] [facility] 01/31/2025 Secondary Insurance:MEDICAREPolic y Number: [id number] Date:0546-79-43Dent Name:Medicare RONNIE K WELLSDOB: [id number] [place] [address] [facility] 12/27/2024 Primary Insurance:MEDICAREPolic y Number: [id number] Date:3047-65-07Dcck Name:Medicare RONNIE K WELLSDOB: [id number] [place] [address] [facility] 12/27/2024 Secondary Insurance:[facility] MEDICAREPolicy Number: [id number] Date:2024-09-07 DYLON AGB: [id number] [place] [address] [facility] 08/22/2024 Primary Insurance:MEDICAREPolic y Number: [id number] Date:[id number] Name:Medicare RONNIE K WELLSDOB: [id number] [place] [address] [facility] 08/22/2024 Secondary Insurance:[employer] MEDICAREPolicy Number: [id number] Date:2022-09-07 DYLON LOWE: [id number] [place] [address] [facility] 06/28/2024 Primary Insurance:[employer] MEDICAREPolicy Number: [id number] Date:2022-09-07 DYLON LOWE: [id number] [place] [address] [facility]
[2025-06-08 09:07] LABS: Alanine Aminotransferase 20 U/L (16-63); Albumin Globulin Ratio 1.1; Albumin Level 3.4 g/dL (3.4-5.0); Alkaline Phosphatase 80 U/L (46-116); Anion Gap 9.5; Aspartate Amino Transferase 22 U/L (15-37); Blood Urea Nitrogen 22.0 mg/dL (7.0-18.0); Calcium 8.4 mg/dL (8.5-10.1); Carbon Dioxide 32.6 mmol/L (21.0-32.0); Chloride 104 mmol/L (98-107); Estimated GFR (African America >60 (>=60 mL/min/1.73m^2); Estimated GFR (Non-African Ame >60 (>=60 mL/min/1.73m^2); Globulin 3.2 g/dL; Glucose 80 mg/dL (74-106); NT Pro B Type Natriuretic Pept 1449.0 pg/mL (<=1800.0); Potassium 4.1 mmol/L (3.5-5.1); Sodium 142 mmol/L (136-145); Total Protein 6.6 g/dL (6.4-8.2)
== END 2025-06-08 07:20 | disposition home or self-care (01) ==
LOC: LAB 07:19
PROVIDERS: PCP Family Medicine; Visit Provider Family Medicine
DX: E87.5 Hyperkalemia (principal); I11.0 Hypertensive heart disease with heart failure; I50.30 Unspecified diastolic (congestive) heart failure
CPT/HCPCS: 36415; 80053; 83880

== ENCOUNTER 2025-07-08 | Outpatient (RCR) | payer MEDICARE, OTHER, SELFPAY | END 2025-08-06 23:59 | disposition home or self-care (01) | LOC: MM | PROVIDERS: PCP Family Medicine; Visit Provider Family Medicine | DX: Z51.81 Encounter for therapeutic drug level monitoring (principal); Z79.01 Long term (current) use of anticoagulants; I82.409 Acute embolism and thrombosis of unspecified deep veins of unspecified lower extremity | CPT/HCPCS: 85610; G0463 ==

== ENCOUNTER 2025-08-07 12:43 | Outpatient (RCR) | payer MEDICARE, OTHER, SELFPAY | END 2025-09-06 13:00 | disposition home or self-care (01) | LOC: MM 12:43 | PROVIDERS: PCP Family Medicine; Visit Provider Internal Medicine | DX: Z51.81 Encounter for therapeutic drug level monitoring (principal); Z79.01 Long term (current) use of anticoagulants; I82.409 Acute embolism and thrombosis of unspecified deep veins of unspecified lower extremity | CPT/HCPCS: 85610; G0463 ==

== ENCOUNTER 2025-09-02 17:49 | Emergency (ER) | payer MEDICARE, OTHER, SELFPAY ==
[2025-09-02] VITALS (28 sets, daily range): BP systolic 119–170; BP diastolic 68–111; PULSE 62–95; TEMP 36.6; O2SAT 94–100; BMI 28.7
--- NOTE | 2025-09-02 17:52 | XR_ITS ---
[facility] [place] [address] Patient Name: YANN FRANCIS MRN: [id number] date: 1945 Sex: M Assigned Patient Location: ED.MAIN Current Patient Location: ED.MAIN Accession/Order Number: [id number] Exam Date: 09/02/2025 18:34 Report Date: 09/02/2025 18:58 At the request of: KELLE MICHAELS DO Procedure: XR chest 1V Plain film chest Single view HISTORY: Chest pain for 2 weeks COMPARISON: 10/11/2020 FINDINGS: SUPPORT DEVICES: None POSTSURGICAL CHANGES: Cardiac device intact HEART: Within normal limits PULMONARY NAZIA: Within normal limits MEDIASTINUM: Unremarkable LUNGS AND PLEURA: No acute lung process, pleural effusion or pneumothorax identified. BONY STRUCTURES: Intact ADDITIONAL FINDINGS None XR/XR chest 1V IMPRESSION: No acute process. Impression dictated by: Jurgen Davenport M.D. 09/02/2025 6:58 PM Dictation Location: [employer] Electronically authenticated by: [id number] Y Date: 09/02/2025 18:58
--- NOTE | 2025-09-02 17:52 | ECG_ITS ---
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 Measurements Intervals Thomas Rate: 70 P: -30 NM: 176 QRS: -29 QRSD: 152 T: 125 QT: 438 QTc: 459 Interpretive Statements AV SEQUENTIAL OR DUAL CHAMBER ELECTRONIC PACEMAKER Premature ventricular contractions 9150 abnormal ECG Compared to ECG 05/13/2017 20:21:31 Electronic pacemaker is now present Electronically Signed On 09-03-2025 13:15:39 EST by EDUARD MARCELO M.D.
--- NOTE | 2025-09-02 17:56 | ED_ITS ---
HPI HPI - General Adult General Chief complaint: Chest Pain Stated complaint: CHEST PAIN Time Seen by Provider: 09/02/25 17:52 History of Present Illness HPI narrative: Patient is an 79-year-old male presenting to the emergency department via EMS for concerns of chest pain. Patient states that over the last week he has been experiencing chest pain associated with exertion or stressful activities . Patient states that the chest pain usually last about 5 minutes before self resolving. However, tonight, he states the pain lasted 15 minutes before going away. He states the pain is located on the left side of his chest. It does not radiate to his back, arm, or jaw. It was not associate with nausea or vomiting. He states it felt like a weird pain and had to take deep breaths to make it go away . He is currently asymptomatic. No abdominal pain, nausea, or vomiting. No fevers or chills. He states he is a history of 3-4 coronary stents and a pacemaker. He states he takes warfarin for a blood thinner. Related Data Allergies Allergy/AdvReac Type Severity Reaction Status Date / Time Ykcllkc-HHO-HvR Reductase AdvReac Severe Rash Verified 09/02/25 18:04 Inhibitor Review of Systems ROS Status of ROS 10 or more systems reviewed and unremark able except as noted in history and below PFSH PFS Social History Little interest or pleasure in doing things: not at all Feeling down, depressed, or hopeless: not at all Exam Narrative Exam Narrative: CONSTITUTIONAL: Well-appearing, answering questions and following commands appropriately SKIN: Was warm and dry. EYES: No conjunctival pallor. EARS, NOSE, THROAT: No JVD. RESPIRATORY: Clear to auscultation bilaterally, no wheezes, crackles, or stridor, no use of accessory muscles CARDIOVASCULAR: Normal rate and regular rhythm. There is no S3, S4, murmur, rub. Radial and dorsalis pedis pulses are 2+ and symmetrical. GASTROINTESTINAL: Abdomen was soft, non-tender, and non-distended. There is no guarding or rebound tenderness MUSCULOSKELETAL: There was no lower extremity edema, erythema, or tenderness. NEUROLOGIC: Patient is awake and alert. Facies were symmetrical. Constitutional Vital Signs, click to edit/add: Last Vital Signs Temp 98 F 09/02/25 17:50 Pulse 67 09/02/25 19:00 Resp 15 09/02/25 19:00 BP 119/76 09/02/25 19:00 Pulse Ox 98 09/02/25 19:00 O2 Del Method Room Air 09/02/25 17:50 Course Vital Signs Vital signs: Vital Signs Temperature 98 F 09/02/25 17:50 Pulse Rate 69 09/02/25 17:50 Respiratory Rate 18 09/02/25 17:50 Blood Pressure 170/90 H 09/02/25 17:50 Pulse Oximetry 100 09/02/25 17:50 Oxygen Delivery Method Room Air 09/02/25 17:50 Temperature 98 F 09/02/25 17:50 Pulse Rate 67 09/02/25 19:00 Respiratory Rate 15 09/02/25 19:00 Blood Pressure 119/76 09/02/25 19:00 Pulse Oximetry 98 09/02/25 19:00 Oxygen Delivery Method Room Air 09/02/25 17:50 Medical Decision Making MDM Narrative Medical decision making narrative: Patient is an 79-year-old male, history significant for coronary artery disease s/p multiple coronary stents on warfarin, type 2 diabetes, and pacemaker placement, presenting to the emergency department via EMS for concerns of chest pain. His vital signs on arrival are significant hypertension otherwise within normal limits. He is afebrile and hemodynamically stable. Saturating 100% on room air no respiratory distress. His chest pain has self resolved and he is currently asymptomatic. He has an unremarkable physical examination. Differential diagnosis includes ACS, pneumothorax, symptomatic anemia, pneumonia, or other electrolyte/metabolic derangement. IV was established and laboratory studies were obtained. 12 Lead EKG: Ventricularly paced rhythm at a normal rate of [address] segment elevations using Sgarbossa criteria. Left bundle branch block, expected with a ventricular paced rhythm. Unchanged compared to prior EKG from 04/01/2024. Final impression: Ventricular paced rhythm at a normal rate. No evidence of acute myocardial ischemia. Patient signed out to Dr. Blount pending work-up. FINAL IMPRESSION: #Acute chest pain #History of coronary artery disease DISPOSITION: Signed out to oncoming ED physician CONDITION: Stable Medical Records Medical records reviewed: Yes I reviewed the patient's medical records Lab Data Lab results reviewed: Yes I reviewed the patient's lab results Labs: Lab Results 09/02/25 Range/Units 18:10 WBC 6.7 (4.0-11.0) 10^3/uL RBC 4.93 (4.70-6.10) 10^6/uL Hgb 14.8 (14.0-18.0) g/dL Hct 45.5 (42.0-54.0) % MCV 92.3 (80.0-94.0) fL MCH 30.0 (25.9-34.0) pg MCHC 32.5 (29.9-35.2) g/dL RDW 12.5 (11.0-15.0) % Plt Count 192 (150-450) 10^3/uL MPV 10.2 (9.5-13.5) fL Neut % (Auto) 59.6 (43.0-75.0) % Lymph % (Auto) 30.2 (20.5-60.0) % [place] % (Auto) 8.1 (1.7-12.0) % Eos % (Auto) 1.3 (0.9-7.0) % Baso % (Auto) 0.7 (0.2-2.0) % Neut # (Auto) 4.0 (1.4-6.5) 10^3/uL Lymph # (Auto) 2.0 (1.2-3.8) 10^3/uL [place] # (Auto) 0.5 (0.3-0.8) 10^3/uL Eos # (Auto) 0.1 (0.0-0.7) 10^3/uL Baso # (Auto) 0.1 (0.0-0.1) 10^3/uL Abs Immat Gran (auto) 0.01 (0.00-0.03) 10^3/uL Imm/Tot Granulo (auto) 0.1 (0.0-0.5) % PT 29.9 H (9.0-11.6) sec INR 3.06 Sodium 138 (136-145) mmol/L Potassium 4.1 (3.5-5.1) mmol/L Chloride 103 (98-107) mmol/L Carbon Dioxide 30.8 (21.0-32.0) mmol/L Anion Gap 8.3 BUN 28.0 H (7.0-18.0) mg/dL Creatinine 1.45 H (0.70-1.30) mg/dL Est GFR ( Amer) 57 L (>=60 mL/min/1.73m^2) Est GFR (Non-Af Amer) 47 L (>=60 mL/min/1.73m^2) BUN/Creatinine Ratio 19.3 Glucose 116 H (74-106) mg/dL Calcium 9.1 (8.5-10.1) mg/dL ECG Data Attestation: I personally reviewed and interpreted this ECG as follows: Discharge Plan Discharge Patient Disposition: Still a Patient
--- OUTSIDE RECORDS SUMMARY | 2025-09-02 18:02 | XMS_ITS | CCD ---
Author Organization [facility] Care Team Providers Care Brake Linings Coater Name Role Phone DORCAS CHIN AM Unavailable Unavailable Arthur, Rashad Unavailable Unavailable HOY, CHARLIE Unavailable Unavailable MARKER, ODESSA J Unavailable Unavailable SD Unavailable Unavailable DORCAS CHIN AM Unavailable Unavailable SD Unavailable Unavailable KARIM, ARIANA Unavailable Unavailable PHYSICIAN, DEFAULT Unavailable Unavailable PHYSICIAN, DEFAULT Unavailable Unavailable HOY, CHARLIE Unavailable Unavailable UNKNOWN, PROVIDER Unavailable Unavailable UNKNOWN, PROVIDER Unavailable Unavailable HOY, CHARLIE Unavailable Unavailable HOY, CHARLIE Unavailable Unavailable HUANG, TIGIST Unavailable Unavailable UNKNOWN, PROVIDER Unavailable Unavailable HOY, CHARLIE Unavailable Unavailable HOY, CHARLIE Unavailable Unavailable Charlie Stark Primary Care Physician [phone] FAWWAD, GONSALEZ H Admitting Unavailable HOY ., [...] ERNIE Referring Unavailable PINO, ERNIE Referring Unavailable PINOERNIE Referring Unavailable MOUKARBELEDUARD Attending Unavailable PINOERNIE Referring Unavailable MOUKARBEL, EDUARD Attending Unavailable PINOERNIE Referring Unavailable NIKHILZULEIMA IGLESIAS Referring Unavailable Allergies Allergy ClassificationReported Allergen(s)Allergy TypeDate of OnsetReaction(s) Facility (3 sources)black walnut pollen extract; Translations: [PPPXHSN-BUO-ILD REDUCTASE INHIBITORS]Drug Axymsbd46-67-9436YWXJxg [facility] Repository (3 sources)celecoxib; Translations: [CeleBREX]Drug Rixpjji21-96-5137NYQZkd [facility] Repository (3 sources)HMG-CoA reductase inhibitor; Translations: [statins]Drug allergy Unknown (qualifier value)[facility] Krystina (2 sources)celecoxib; Translations: [celecoxib]Drug Eaimatp87-20-2398Vgelhmi (finding)[facility] General Surgery Krystina Medications Current Medications MedicationDrug Class(es)DatesSig (Normalized)Sig (Original)1.5 ML inclisiran 189 MG/ML Prefilled Syringe [Leqvio] (1 source)Start: 85-41-1642Hwkxqg 284 mg/1.5 mL subcutaneous solution 284 mg, SubCutaneous, q6mo, Refills(s) 0 Start Date: 03/08/25 Status: Ordered Repeat number: 1amitriptyline hydrochloride 25 mg oral tablet (2 sources)Tricyclic AntidepressantStart: 74-41-0790gkok 1 mg by mouth once daily at bedtimeamitriptyline 25 mg Tab mg tab(s), Oral, Once a day (at bedtime), Refills(s) 0 Start Date: 06/07/19 Status: Ordered Repeat number: 1 aspirin 81 mg delayed release oral tablet (2 sources)Platelet Aggregation Inhibitor, Nonsteroidal Anti-inflammatory Drug Start: 42-43-1780bzpm 1 tablet by mouth once dailyaspirin 81 mg Oral EC Tab 81 mg = 1 tab(s), Oral, Daily, Refills(s) 0 Start Date: 03/08/25 Status: Ordered Repeat number: 1Start: 95-99-1526gzum 1 mg by mouth once dailyAdult Aspirin 81 mg oral tablet, chewable mg tab(s), Chewed, Daily, Refills(s) 0 Start Date: 06/07/19 Status: Orderedcarvedilol 6.25 mg oral tablet (2 sources)alpha-Adrenergic Yuridia, beta-Adrenergic BlockerStart: 03-08-2025 take 3 tablets by mouth twice dailyCoreg 6.25 mg Tab 18.75 mg = 3 tab(s), Oral, BID, Refills(s) 0 Start Date: 03/08/25 Status: Ordered Repeat number: 1Start: 46-66-6100koug 1 mg by mouth twice dailycarvedilol 3.125 mg Tab mg tab(s), Oral, BID, Refills(s) 0 Start Date: 06/07/19 Status: Ordereddapagliflozin 10 mg oral tablet (1 source)Sodium-Glucose Cotransporter 2 InhibitorStart: 13-08-5870uyna 1 tablet by mouth once dailyFarxiga 10 mg oral tablet 10 mg = 1 tab(s), Oral, Daily, Refills(s) 0 Start Date: 03/08/25 Status: Ordered Repeat number: 1docusate sodium 100 mg oral capsule (2 sources)Start: 25-70-7876kkrq 1 capsule by mouth twice daily as needed for constipationColace 100 mg Cap 100 mg = 1 cap(s), Oral, BID, PRN for constipation, # 20 cap(s), Refills(s) 0 Start Date: 06/07/19 Status: Ordered Quantity: 20.0 Unit: cap(s) Repeat number: 1erythromycin 0.005 mg/mg ophthalmic ointment (1 source)Macrolide, Macrolide AntimicrobialStart: 58-93-9746rjcc 3 g into the eye(s) once daily in the eveningerythromycin Opth 0.5% Oint Refill(s) 0, 3 gm, APPLY A THIN LAYER TO BOTH EYES EVERY EVENING Start Date: 08/26/22 Status: Orderedezetimibe 10 mg oral tablet (1 source)Dietary Cholesterol Absorption InhibitorStart: 04-42-2141uybq 1 tablet by mouth once dailyZetia 10 mg Tab 10 mg = 1 tab(s), Oral, Daily, Refills(s) 0 Start Date: 03/08/25 Status: Ordered Repeat number: 1ferrous fumarate 325 mg oral tablet (1 source)Start: 92-97-2230qfhd 1 mg by mouth once dailyferrous fumarate 325 mg oral tablet mg tab(s), Oral, Daily, Refills(s) 0 Start Date: 06/13/20 Status: Orderedferrous sulfate 325 mg oral tablet (1 source)Start: 28-26-9837lyvc 1 tablet by mouth twice dailyferrous sulfate 325 mg Tab 325 mg = 1 tab(s), Oral, BID, Refills(s) 0 Start Date: 03/08/25 Status: Ordered Repeat number: 1Iron 100 Plus (2 sources)Start: 19-59-6474nmmu 1 tablet by mouth once dailyIron 100 Plus tab(s), Oral, Daily, Refill(s) 0 Start Date: 06/07/19 Status: OrderedStart: 98-62-8079jcgl 1 tablet by mouth once dailyIron 100 Plus tab(s), Oral, Daily, Refill(s) 0 Start Date: 06/07/19 Status: Hymeczc67 hr isosorbide mononitrate 30 mg extended release oral tablet (2 sources)Nitrate VasodilatorStart: 62-83-1833wynj 1 mg by mouth once daily in the morningisosorbide mononitrate 30 mg ER Tab mg tab(s), Oral, qAM, Refills(s) 0 Start Date: 06/13/20 Status: Ordered Repeat number: 1melatonin 10 mg oral tablet (2 sources)Start: 84-05-3812jnmi 1 tablet by mouth once daily at bedtime melatonin 10 mg oral tablet 10 mg = 1 tab(s), Oral, Once a day (at bedtime), Refills(s) 0 Start Date: 03/08/25 Status: Ordered Repeat number: 1Start: 22-35-7258dsthpifpw Once a day (at bedtime), Refills(s) 0 Start Date: 06/07/19 Status: OrderedNIFEdipine 30 mg oral tablet (1 source)Dihydropyridine Calcium Channel BlockerStart: 35-35-2818tysi 1 mg by mouth once dailyNIFEdipine 30 mg ER Tab mg tab(s), Oral, Daily, Refills(s) 0 Start Date: 06/07/19 Status: Orderedomeprazole 40 mg delayed release oral capsule (2 sources)Proton Pump InhibitorStart: 87-85-7290cair 1 mg by mouth once daily omeprazole 40 mg Cap-DR mg cap(s), Oral, Daily, Refills(s) 0 Start Date: 06/13/20 Status: Ordered Repeat number: 1Potassium Acetate (1 source)Start: 11-17-9835yeiqyesdb acetate Refills(s) 0 Start Date: 06/07/19 Status: Orderedsacubitril 24 mg / valsartan 26 mg oral tablet (1 source)Angiotensin 2 Receptor BlockerStart: 44-53-2803cnbh 1 tablet by mouth twice dailyEntresto 24 mg-26 mg oral tablet 1 tab(s), Oral, BID, Refill(s) 0 Start Date: 03/08/25 Status: Ordered Repeat number: 1spironolactone 25 mg oral tablet (1 source)Aldosterone AntagonistStart: 49-78-3346dpazcoobvxnuth 25 mg Tab 12.5 mg = 0.5 tab(s), Oral, Daily, Refills(s) 0 Start Date: 03/08/25 Status:Ordered Repeat number: 1temazepam 30 mg oral capsule (2 sources)BenzodiazepineStart: 43-60-8084kvsi 1 capsule by mouth once daily at bedtime as needed for sleeptemazepam 30 mg Cap 30 mg = 1 cap(s), Oral, Once a day (at bedtime), PRN for sleep, Refills(s) 0 Start Date: 06/13/20 Status: Ordered Repeat number: 1torsemide 20 mg oral tablet (1 source)Loop DiureticStart: 49-01-2403rxla 1 mg by mouth once dailytorsemide 20 mg Tab mg tab(s), Oral, Daily, Refills(s) 0 Start Date: 06/07/19 Status: OrderedVitamin D2 2000 intl units oral capsule (1 source)Start: 24-60-5866ktbe 1 capsule by mouth once dailyVitamin D2 2000 intl units oral capsule 50 mcg = 1 cap(s), Oral, Daily, cap(s), Refills(s) 0 Start Date: 03/08/25 Status: Ordered Repeat number: 1Vitamin D3 (1 source)Start: 30-64-6346Iqrxxor D3 Refills(s) 0 Start Date: 06/07/19 Status: Orderedwarfarin sodium 5 mg oral tablet (3 sources)Vitamin K AntagonistStart: 88-71-4511ziqcnyzn 5 mg Tab 108 EA, TAKE DAILY DIRECTED BY COUMADIN CLINIC, Refills(s) 0 Start Date: 08/26/22 Status: OrderedStart: 22-75-4509fivabywd Oral, Daily, Refills(s) 0 Start Date: 06/07/19 Status: Ordered Repeat number: 1Start: 99-13-6620vkrzynfh Oral, Daily, Refills(s) 0 Start Date: 06/07/19 Status: Ordered Completed/Discontinued Medications MedicationDrug Class(es)DatesSig (Normalized)Sig (Original)1 ml enoxaparin sodium 150 mg/ml prefilled syringe (1 source)Low Molecular Weight HeparinStart: 71-00-0613dhyoloqkfb 150 mg/1 mL SC Mag 10 mL, INJECT 1 SYRINGE SUBCUTANEOUSLY ONCE EVERY EVENING, Refills(s)0 Start Date: 08/26/22 Status: Ordered Problems Active Problems Problem ClassificationProblemDateDocumented DateEpisodic/ChronicAcute myocardial infarction (2 sources)Myocardial bvdcfwofuj78-41-6740FkfwtmhQzejsup dysrhythmias (4 sources)Multiple premature ventricular complexes; Translations: [Paroxysmal atrial fibrillation]Onset: 840874-38-7911BronasfUadtkla kidney disease (3 sources)Chronic kidney disease, unspecified; Translations: [Chronic kidney disease, stage 3 (moderate)]Onset: 772056-25-4509MeyienhVecaihhgxh disorders (11 sources)Presence of cardiac pacemaker; Translations: [Atrioventricular block, second degree]Onset: 298162-63-1639OerofpfJshcfsklrb heart failure; nonhypertensive (10 sources)Unspecified diastolic (congestive) heart failure; Translations: [Chronic diastolic (congestive) heart failure]Onset: 44-77-5751PfzvwnbXzbohgsh atherosclerosis and other heart disease (13 sources)Atherosclerotic heart disease of [place] coronary artery without angina pectoris; Translations: [Oldmyocardial infarction]Onset: 05-14-2017 81-79-1124QkumofxWifqzlyb mellitus with complications (1 source)Type 2 diabetes mellitus with diabetic chronic kidney disease; Translations: [TYPE 2 DIABETES MELLITUS W DIABETIC CHRONIC KIDNEY DISEASE]Onset: 88-60-3199OxnkfxiQmrmlusi mellitus without complication (2 sources)Diabetes gpfsdbke31-98-8465PmyqjxmVqgbkjaer of lipid metabolism (7 sources)Mixed hyperlipidemia; Translations: [Hyperlipidemia]Onset: 11-25-2016 ChronicEsophageal disorders (2 sources)Gastro-esophageal reflux disease without esophagitis; Translations: [Gastroesophageal reflux disease]Onset: 747214-53-4205TpypcztOrlokefpu hypertension (4 sources)Hypertensive disorder; Translations: [Essential (primary) hypertension]Onset: 897321-78-6493YmworbkMesfjfipzlvox symptoms and ill- defined conditions (1 source)Urge incontinence of qrfon36-66-1049YlbfxpyTdayfspivgh of prostate (8 sources)Benign prostatic hyperplasia without lower urinary tract symptoms; Translations: [Benign prostatic hypertrophy with outflow obstruction]Onset: 56-10-9168KctfblwTzoiykyoxbao with complications and secondary hypertension (2 sources)Hypertensive chronic kidney disease with stage 1 through stage 4 chronic kidney disease, or unspecified chronic kidney disease; Translations: [Hypertensive heart and chronic kidney disease with heartfailure and stage 1 through stage 4 chronic kidney disease, or unspecified chronic kidney disease] Onset: 93-93-9151QcvxqmaPjhz disorders (2 sources)Depressive zqqunwsp29-64-1129CbiejsvXuhjwzqqixc deficiencies (1 source)Vitamin D deficiency, unspecified; Translations: [VITAMIN D DEFICIENCY, UNSPECIFIED]Onset: 88-65-1072VjkmdduHavkuhnuxqldfw (1 source)Unspecified osteoarthritis, unspecified site; Translations: [UNSPECIFIED OSTEOARTHRITIS, UNSPECIFIED SITE]Onset: 14-60-5025ShicqxhAznsg aftercare (3 sources)correction (current) use of anticoagulants; Translations: [correction (current) use of aspirin]Onset: 74-88-4582GysxozdzSadsb aftercare (5 sources)Encounter for therapeutic drug level monitoring; Translations: [ENC THERAPEUTC DRUG LEVL MONITORING]Onset: 14-91-7057FmopmfgnKjwbw aftercare (1 source)Long-term current use of lyinccmmjutuy91-47-2103XspemgsrAuznm diseases of kidney and ureters (1 source)Urinary tract obstruction; Translations: [Other obstructive and reflux uropathy]Onset: 42-24-1848AesophjsLyuee nutritional; endocrine; and metabolic disorders (1 source)Body mass index 40+ - severely glfeo39-54-5518SipnnenXchmp nutritional; endocrine; and metabolic disorders (1 source)Morbid yaiikdk37-17-5993MxzrzzfXjvmc nutritional; endocrine; and metabolic disorders (1 source)Body mass index 30+ - -39-8952SdreskgAkbkr nutritional; endocrine; and metabolic disorders (1 source)Obesity caused by energy zjxfznhve54-55-9476UonqmjgCyriq skin disorders (1 source)Epidermoid cyst; Translations: [Epidermal cyst]Onset: 03-21-2025 EpisodicOther skin disorders (1 source)Epidermoid cyst of pgcz25-83-0652VrckdonhGotgofoguq and visceral atherosclerosis (2 sources)Peripheral vascular ukiygri68-48-4036TllncqtTpteiqlxl; thrombophlebitis and thromboembolism (2 sources)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; Translations: [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]Onset: 72-63-2682Sznwwkx Residual codes; unclassified (2 sources)Sleep ihppt14-98-9421QmrgykmNlneynsf codes; unclassified (1 source)Obstructive sleep apnea hbtpotqa82-81-6602OiezqbuNdtigyfoy or history of mental health and substance abuse (2 sources)Personal history of nicotine dependence; Translations: [Ex-smoker] Onset: 199267-90-4086VqslazbsHvrkkzib lupus erythematosus and connective tissue disorders (2 sources)Sicca syndrome, unspecified; Translations: [Sjogren's syndrome]Onset: 085860-57-2166HokfpkpHpdgodzfbqnb (1 source)Obstructive sleep apnea (adult) (pediatric); Translations: [OBSTRUCTIVE SLEEP APNEA (ADULT) (PEDIATRIC)]Onset: 51-70-0278Ftqmbsy Unclassified (1 source)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; Translations: [SKILLED NURSING (CURRENT) USE OF ORAL HYPOGLYCEMIC DRUGS]Onset: 05-14-2017 Unclassified (2 sources)Unknown / UNK(Unknown)Onset: 54-19-3428Tfgivvdxszjz (1 source)Stenosis of coronary artery stent, initial encounter; Translations: [STENOSIS OF CORONARY ARTERY STENT, INITIAL ENCOUNTER]Onset: 06-10-2017 Unclassified (1 source)Drug therapy slptlcy11-17-4144 Past or Other Problems Problem ClassificationProblemDateDocumented DateEpisodic/ChronicComplication of device; implant or graft (1 source)Displacement of cardiac electrode, initial encounter; Translations: [DISPLACEMENT OF CARDIAC ELECTRODE, INITIAL ENCOUNTER]Onset: 01-52-1632Yyjdrhex Coronary atherosclerosis and other heart disease (3 sources)Presence of coronary angioplasty implant and graft; Translations: [PRESENCE OF CORONARY ANGIOPLASTYIMPLANT AND GRAFT]Onset: 15-27-0262Tnjkztfa Deficiency and other anemia (1 source)Iron deficiency anemia, unspecified; Translations: [IRON DEFICIENCY ANEMIA, UNSPECIFIED]Onset: 29-95-2084YpcwaqzgKwsxwxmvruzfi symptoms and ill- defined conditions (10 sources)Nocturia; Translations: [Nocturia]Onset: 17-19-1469IuafsmtpPqhiiwk and fatigue (1 source)Other fatigue; Translations: [OTHER FATIGUE]Onset: 67-00-5002Zcecthmx Other lower respiratory disease (1 source)Shortness of breath; Translations: [SHORTNESS OF BREATH]Onset: 15-65-6329GeffvseaIaqsrxulx; thrombophlebitis and thromboembolism (9 sources)Personal history of other venous thrombosis and embolism; Translations: [Acute embolism and thrombosis of unspecified deep veins of unspecified lower extremity]Onset: 56-15-7939ZapfugmrPpuwuinhn heart disease (5 sources)Personal history of pulmonary embolism; Translations: [H/O: pulmonary embolus]Onset: 222156-97-8642GtazgpjoWunnlijimbpk (4 sources)Abnormal result of other cardiovascular function study; Translations: [ABNORMAL RESULT OF OTHER CARDIOVASCULAR FUNCTION STUDY]Onset: 06-10-2017 Episodic Results Test NameValueInterpretationReference RangeFacilityOrders Onlyon 07-17-2025 Orders [id number] Yann Francis 1945 M Date Provider Department Center 07/17/2025 LUCIA DE LUNA [facility] Family History Adopted: Yes Family Status - Relation Status Age at Mother Father DeceasedNormalUniversity of St. [facility] HospitalGeneral Surgery Office/Clinic Noteon 82-02-1945Msizgvq Surgery Office/Clinic NoteGeneral Surgery Office/Clinic Note HPI Staff 79 year old male presents on consultation from Dr. Stark for skin lesions. Reports 2 lesions; one to mid to lower right back and one to mid to lower left back. He is unsure how long either lesions havebeen present. Reports the lesion on left is occasional sore; no soreness from right lesion. Denies bleeding or drainage. History of Present Illness 79 yo male with h/o CAD, NC, PE, paroxysmal atrial fibrillation, on chronic warfarin, htn, hyperlipidemia, STACEY, Sjogren syndrome; bph, second degree heart block, GERD, DMII, referred for skin lesionsof lower back; present for many years; lesion [...] swallowing difficulties, no hearing loss, no ear infection(s),no nose bleeds. 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 Obesity due to [...] Colonoscopy, Coronary artery stent, Implantation of heart pac emaker, Insertion of inferior vena caval filter, Meniscal [...] a day (at bedtime) (more content not included)...[facility] HospitalComment on above: Result Comment: Electronically Signed By: OSBALDO DELGADO, Fernandez Aly\Date and Time Signed: 03/21/25 14:29 EDTOffice Visiton 96-53-5058Tmnlmr-up [id number] Yann Francis 1945 M Date Provider Department Center 02/06/2025 EDUARD PRUITT [facility] Family History Adopted: Yes Family Status - Relation Status Age at Mother Father Level of Service:36065 [place] OFFICE/OUTPATIENT ESTABLISHED MOD MDM [facility] HospitalOrders Onlyon 91-21-0754Wtphmv [id number] Yann Francis 1945 M Date Provider Department Center 01/20/2025 ERNIE [facility]AUME [facility] Family History Adopted: YesNormalUniversKettering Health Main CampusOrders Onlyon 09-08-2024 Orders [id number] Yann Francis 1945 M Date Provider Department Center 09/08/2024 BRAN VALIENTE [facility] Family History Adopted: YesNormalUniversuniversity hospitals [facility] HospitalOffice Visiton 08-22-2024 Follow-up [id number] Yann Francis 1945 M Date Provider Department Center 08/22/2024 EDUARD PRUITT [facility] Family History Adopted: Yes Level of Service:82136 [place] OFFICE/OUTPATIENT ESTABLISHED MOD MDM [facility] HospitalPROF CHEM 8 (BAS METB)on 08-90-7049Rfhmo gap [Moles/Vol]5.7 mmol/LNormalThe [facility] HospitalComment on above:Performed By: #### BMP #### [facility] [address] [place] [address] Dr. Wili CardonaCalcium [Mass/Vol]8.5 mg/dLNormal8.5-10.1[facility] Comment on above:Performed By: #### BMP #### [facility] [address] [address] [address] Wili CardonaChloride [Moles/Vol]100 mmol/CSvklez89-869BznParkview Health Bryan Hospital Comment on above:Performed By: #### BMP #### [facility] [address] [address] [address] Wili CardonaCO2 [Moles/Vol]36.1 mmol/LCritically high21.0-32.0The [facility] HospitalComment on above:Performed By: #### BMP #### [facility] [address] [address] [address] Wili CardonaCreatinine [Mass/Vol]1.29 mg/dLNormal0.70-1.30The [facility] HospitalComment on above:Performed By: #### BMP #### [facility] [address] [place] [address] Dr. Wili VasquezGFR-AF ANGUILLAN>60Normal>=60The [facility] HospitalComment on above:Performed By: #### BMP #### [facility] [address] [place] [address] Dr. Wili VasquezGFR-NON AF LCZGSRYN71 mL/min/1.38r4Sxnxvanclq low>=60The [facility] HospitalComment on above:Performed By: #### BMP #### [facility] [address] [place] [address] Dr. Wili CardonaGlucose [Mass/Vol]131 mg/dLCritically bhzt43-893Dah [facility] HospitalComment on above:Performed By: #### BMP #### [facility] [address] [place] [address] Dr. Wili CardonaPotassium [Moles/Vol]3.8 mmol/LNormal3.5-5.1[facility] Comment on above:Performed By: #### BMP #### [facility] [address] [place] [address] Dr. Wili CardonaSodium [Moles/Vol]138 mmol/EMntavs344-624MuiParkview Health Bryan Hospital Comment on above:Performed By: #### BMP #### [facility] [address] [place] [address] Dr. Wili CardonaUrea nitrogen [Mass/Vol]23.0 mg/dLCritically high7.0-18.0The [facility] HospitalComment on above:Performed By: #### BMP #### [facility] [address] [place] [address] Dr. Wili Juarez nitrogen/Creatinine [Mass ratio]17.8 mg/mgNormalThe [facility] HospitalComment on above:Performed By: #### BMP #### [facility] [address] [place] [address] Dr. Wili SahuC AUTO DIFFon 53-96-5755CHCH #0.0 103/ulNormal0.0-0.1The [facility] HospitalComment on above:Performed By: #### CBC #### [facility] [address] [place] [address] Dr. Wili CardonaBasophils/100 WBC (Bld)0.3 %Normal0.2-2.0The [facility] Comment on above:Performed By: #### CBC #### [facility] [address] [place] [address] Dr. Wili Chaves #0.1 103/ulNormal0.0-0.7The [facility] HospitalComment on above: Performed By: #### CBC #### [facility] [address] [place] [address] Dr. Wili Vasquezosinophils/100 WBC (Bld)1.5 %Normal0.9-7.0The [facility] Comment on above:Performed By: #### CBC #### [facility] [address] [place] [address] Dr. Wili Vasquezrythrocyte distribution width (RBC) [Ratio]13.4 %Xhfobu53.0-15.0 The [facility] HospitalComment on above:Performed By: #### CBC #### [facility] [address] [place] [address] Dr. Wili CardonaHematocrit (Bld) [Volume fraction]41.1 %Critically low42.0-54.0 The [facility] HospitalComment on above:Performed By: #### CBC #### [facility] [address] [place] [address] Dr. Wili CardonaHemoglobin (Bld) [Mass/Vol]13.3 g/dLCritically low14.0-18.0The [facility] HospitalComment on above:Performed By: #### CBC #### [facility] [address] [place] [address] Dr. Wili Smart #0.02 10e3/ulNormal0.00-0.03The [facility] HospitalComment on above:Performed By: #### CBC #### [facility] [address] [place] [address] Dr. Wili Smart %0.3 %Normal0.0-0.5The [facility] HospitalComment on above: Performed By: #### CBC #### [facility] [address] [place] [address] Dr. Wili Fuentes #1.5 103/ulNormal1.2-3.8The [facility] HospitalComment on above:Performed By: #### CBC #### [facility] [address] [place] [address] Dr. Wili Benderhocytes/100 WBC (Bld)22.7 %Aeqbhh96.5-60.0The [facility] HospitalCombeaumont hospital on above:Performed By: #### CBC #### [facility] [address] [place] [address] Dr. Wili AlasUAL DIFF REQNONormalThe [facility] HospitalComment on above: Performed By: #### CBC #### [facility] [address] [place] [address] Dr. Wili Vega (RBC) [Entitic mass]30.0 tlZbwlmv68.9-34.0The [facility] HospitalComment on above:Performed By: #### CBC #### [facility] [address] [place] [address] Dr. Wili Vega (RBC) [Mass/Vol]32.4 g/dIRqqkxp00.9-35.2The [facility] on above:Performed By: #### CBC #### [facility] [address] [place] [address] Dr. Wili Vega (RBC) [Entitic vol]92.6 jFBtgdap62.0-94.0The [facility] HospitalCombeaumont hospital on above:Performed By: #### CBC #### [facility] [address] [place] [address] Dr. Wili Dunlap #0.5 103/ulNormal0.3-0.8The [facility] HospitalComment on above:Performed By: #### CBC #### [facility] [address] [address] [address] Wili Lynchocytes/100 WBC (Bld)7.4 %Normal1.7-12.0The [facility] Comment on above:Performed By: #### CBC #### [facility] [address] [place] [address] Dr. Wili JimenezUT #4.5 103/ulNormal1.4-6.5The [facility] HospitalComment on above:Performed By: #### CBC #### [facility] [address] [place] [address] Dr. Wili Jimenezutrophils/100 WBC (Bld)67.8 %Revgeb85.0-75.0The [facility] HospitalComment on above:Performed By: #### CBC #### [facility] [address] [place] [address] Dr. Wili CardonaPlatelet mean volume (Bld) [Entitic vol]9.5 fLNormal9.5-13.5The [facility] HospitalComment on above:Performed By: #### CBC #### [facility] [address] [place] [address] Dr. Wili CardonaPLT151 103/onYeinba285-403Gsx [facility] HospitalComment on above: Performed By: #### CBC #### [facility] [address] [place] [address] Dr. Wili CardonaRBC4.44 106/ulCritically low4.70-6.10The [facility] HospitalComment on above:Performed By: #### CBC #### [facility] [address] [place] [address] Dr. Wili CardonaWBC6.6 103/ulNormal4.0-11.0The [facility] HospitalComment on above: Performed By: #### CBC #### [facility] [address] [place] [address] Dr. Wili CardonaLIPID PROFILEon [id number]-HDL RATIO NORMSEE BELOWOhioHealth Southeastern Medical CenterComment on above:Result Comment: 3.3 - 4.4 LOW RISK 4.4 - 7.1 AVERAGE RISK 7.1 - 11.0 MODERATE RISK >11.0 HIGH RISKPerformed By: #### LIPID, CMP #### [facility] [address] [place] [address] Dr. Wili CardonaCholesterol [Mass/Vol]213 mg/dLCritically high<=200[facility] on above:Performed By: #### LIPID, CMP #### [facility] [address] [place] [address] Dr. Wili CardonaCholesterol in HDL [Mass/Vol]54 mg/zZXzolvh94-74Fdy [facility] HospitalComment on above:Performed By: #### LIPID, CMP #### [facility] [address] [place] [address] Dr. Wili CardonaCholesterol in LDL [Mass/Vol]147.2 mg/dLOhioHealth Southeastern Medical CenterComment on above:Performed By: #### LIPID, CMP #### [facility] [address] [place] [address] Dr. Wili Mandelesterflorence.total/Cholesterol in HDL [Mass ratio]3.9 {ratio} NormalThe [facility] HospitalComment on above:Performed By: #### LIPID, CMP #### [facility] [address] [place] [address] Dr. Wili CardonaHDL NORMAL> or = 60 mg/dl - LOW CARDIOVASCULAR RISK <40 mg/dl - HIGH CARDIOVASCULAR RISKOhioHealth Southeastern Medical CenterCombeaumont hospital on above:Performed By: #### LIPID, CMP #### [facility] [address] [place] [address] Dr. Wili CardonaLDL CALC NORMALSEE BELOWOhioHealth Southeastern Medical CenterComment on above:Result Comment: <100 mg/dl OPTIMAL 100 - 129 mg/dl NEAR OR ABOVE OPTIMAL 130 - 159 mg/dl BORDERLINE HIGH 160 - 189 mg/dl HIGH >190 mg/dl VERY HIGH Performed By: #### LIPID, CMP #### [facility] [address] [place] [address] Dr. Wili CardonaTriglyceride [Mass/Vol]59 mg/dLNormal<=150The [facility] Comment on above:Performed By: #### LIPID, CMP #### [facility] [address] [address] [address] Wili CardonaVLDL CALC11.8 mg/dLNormalThe [facility] HospitalComment on above: Performed By: #### LIPID, CMP #### [facility] [address] [address] [address] Wili CardonaPROF 14(COMP METB)on 07-77-1462Iiplnbo [Mass/Vol]3.2 g/dL Critically low3.4-5.0The [facility] HospitalComment on above:Performed By: #### LIPID, CMP #### [facility] [address] [place] [address] Dr. Wili CardonaAlbumin/Globulin [Mass ratio]0.9 {ratio}NormalThe [facility] HospitalComment on above:Performed By: #### LIPID, CMP #### [facility] [address] [place] [address] Dr. Wili Mcguire [Catalytic activity/Vol]83 U/JHzlezq43-468Oge [facility] HospitalComment on above:Performed By: #### LIPID, CMP #### [facility] [address] [place] [address] Dr. Wili Torres [Catalytic activity/Vol]17 U/ZWdzrdh12-72Zij [facility] HospitalComment on above:Performed By: #### LIPID, CMP #### [facility] [address] [place] [address] Dr. Wili Joshi gap [Moles/Vol]10.6 mmol/LNormalThe [facility] Comment on above:Performed By: #### LIPID, CMP #### [facility] [address] [place] [address] Dr. Wili Thao [Catalytic activity/Vol]16 U/XPxrhcs30-44Yxm [facility] HospitalComment on above:Performed By: #### LIPID, CMP #### [facility] [address] [place] [address] Dr. Wili Montesirubin [Mass/Vol]0.6 mg/dLNormal0.2-1.0[facility] Comment on above:Performed By: #### LIPID, CMP #### [facility] [address] [address] [address] Wili CardonaCalcium [Mass/Vol]8.9 mg/dLNormal8.5-10.1The [facility] Comment on above:Performed By: #### LIPID, CMP #### [facility] [address] [place] [address] Dr. Wili CardonaChloride [Moles/Vol]102 mmol/NIbgsti52-608Wnq [facility] Comment on above:Performed By: #### LIPID, CMP #### [facility] [address] [place] [address] Dr. Wili CardonaCO2 [Moles/Vol]32.7 mmol/LCritically high21.0-32.0The [facility] HospitalComment on above:Performed By: #### LIPID, CMP #### [facility] [address] [place] [address] Dr. Wili CardonaCreatinine [Mass/Vol]1.13 mg/dLNormal0.70-1.30The [facility] HospitalComment on above:Performed By: #### LIPID, CMP #### [facility] [address] [place] [address] Dr. Wili VasquezGFR-AF ANGUILLAN>60Normal>=60The [facility] HospitalComment on above:Performed By: #### LIPID, CMP #### [facility] [address] [place] [address] Dr. Wili VasquezGFR-NON AF ANGUILLAN>60Normal>=60The [facility] HospitalComment on above:Performed By: #### LIPID, CMP #### [facility] [address] [place] [address] Dr. Wili CardonaGlobulin (S) [Mass/Vol]3.4 g/dLNormalThe [facility] HospitalComment on above:Performed By: #### LIPID, CMP #### [facility] [address] [place] [address] Dr. Wili CardonaGlucose [Mass/Vol]85 mg/xUSigyvs83-131Aog [facility] Comment on above:Performed By: #### LIPID, CMP #### [facility] [address] [address] [address] Wili CardonaPotassium [Moles/Vol]5.3 mmol/LCritically high3.5-5.1The [facility] HospitalComment on above:Performed By: #### LIPID, CMP #### [facility] [address] [place] [address] Dr. Wili CardonaProtein [Mass/Vol]6.6 g/dLNormal6.4-8.2The [facility] Comment on above:Performed By: #### LIPID, CMP #### [facility] [address] [place] [address] Dr. Wili Mcdermottdium [Moles/Vol]140 mmol/DSiuvlu298-121Tet [facility] Comment on above:Performed By: #### LIPID, CMP #### [facility] [address] [place] [address] Dr. Wili CardonaUrea nitrogen [Mass/Vol]21.0 mg/dLCritically high7.0-18.0The [facility] HospitalComment on above:Performed By: #### LIPID, CMP #### [facility] [address] [place] [address] Dr. Wili Juarez nitrogen/Creatinine [Mass ratio]18.6 mg/mgNormalThe [facility] HospitalComment on above:Performed By: #### LIPID, CMP #### [facility] [address] [place] [address] Dr. Wili Philippe METABOLIC PANELon 86-24-0539Fgtnpwy4.0 mg/dLNormal8.6-10.3 The [facility] HospitalComment on above:Order Comment: No: Do not add to previous drawPerformed By: #### 30872, 56100, 93503 ####[facility] [place] [address], SHNXzlsabrr468 mmol/L Ljqeqw88-557Kwh [facility] HospitalComment on above:Order Comment: No: Do not add to previous drawPerformed By: #### 45812, 56974, 44962 ####[facility] [place] [address], [place] CO228 mmol/KMdrbyh80-73Bsa [facility] HospitalComment on above: Order Comment: No: Do not add to previous drawPerformed By: #### 46908, 82426, 86696 ####[facility] [place] [address], USACreatinine1.17 mg/dLNormal0.70-1.30The [facility] HospitalComment on above:Order Comment: No: Do not add to previous drawPerformed By: #### 29787, 51058, 88290 ####[facility] [place] [address], USAeGFR (black)mL/min/{1.73_m2}Normal>60The [facility] HospitalComment on above:Order Comment: No: Do not add to previous drawResult Comment: Calculation may not be valid for patients over 70 yearsPerformed By: #### 82908, 93598, 08538 ####[facility] [place] [address], USAeGFR (non-black) mL/min/{1.73_m2}Normal>60The [facility] HospitalComment on above:Order Comment: No: Do not add to previous drawResult Comment: Calculation may not be valid for patients over 70 yearsPerformed By: #### 61206, 95555, 47493 ####[facility] [place] [address], USAGlucose mass conc87 mg/xLUrtwaz67-697Tda [facility] HospitalComment on above:Order Comment: No: Do not add to previous drawPerformed By: #### 98664, 26288, 25678 ####[facility] [place] [address], USAPotassium molar conc4.3 mmol/LNormal3.5-5.1 The [facility] HospitalComment on above:Order Comment: No: Do not add to previous drawPerformed By: #### 22303, 37594, 52508 ####[facility] [place] [address], WAVPjzeqa971 mmol/L Lcltto865-545Iyj [facility] HospitalComment on above:Order Comment: No: Do not add to previous drawPerformed By: #### 95849, 25111, 04538 ####[facility] [facility] [place] [address], [facility] Urea mg/dLNormal7-25The [facility] HospitalComment on above:Order Comment: No: Do not add to previous drawPerformed By: #### 53595, 12263, 14500 ####[facility] [facility] [place] [address], [facility] HOSPITALCardiovascular Lab Reporton [id number] Lab Report [facility] Patient Name: Yann Francis [facility] MR #: [id number] Physician: Eduard Wang M.D.Medicine Service Date: 06/11/2017Division of Birthdate: 4Cardiology Room #: 3AB [id number] [facility] [address]Gmagt [facility] Cardiovascular Laboratory ReportCARDIAC CATHETERIZATION REPORTINDICATION:Yann Francis is a 71-year-old man, known to [...] Hesigned informed consent. He was brought to quality assurance lab technician in a fasting state.The Cesar's test was [...] limited leftfemoral angiography confirmed adequate position, therefore theaccess sitewas upsized using serial dilation with a stiff micropuncture catheterfollowed by a dilator of a 5-Senegalese pinnacle sheath. Eventually, we wereable to overcome the subcutaneous tissue and advance the 5-Senegalese pinnaclesheath and secure it in place.Using the angled Glidewire, the wire was advanced across the previouslyplaced aortic stent graft intraluminally and this allowed tracking of5-Senegalese diagnostic catheters. Bilateral selective coronary angiographywas then performed using a 5-Senegalese JL4 and AR modified diagnosticcatheters. Angiography was performed in multiple views.Heparin wasadministered intravenously and therapeutic ACT confirmed duringthe procedure. A 5-Senegalese XB3.5 guiding catheter was advanced and used toengage the left main coronary ostium. A Prowater wire was advanced intothe distal ramus vessel. Balloon angioplasty in the proximal ramus wasperformed using Emerge3.0 x 12 mm balloon, inflated at 12 [...] left femoralarteriotomy site was managed with a 6-Senegalese Angio-Seal device with goodhemostasis. He tolerated the [...] and PLV branches. The PLV branch has apreviouslyplaced stent which is patent.LIMITED LEFT FEMORAL ANGIOGRAPHY:This showed initially access to be inthe left profunda femoris. Accesswas abandoned and repeat access was confirmed in the left common fe moralartery. There were no obstructive lesions noted in [...] 06/11/2017/07:38 P/Eduard Hopson M.D.Date Trans: 06/12/2017 04:56 P/mmoDN_JN:[id number]: Charlie Stark M.D. [address], [facility] [address]VgbwyuRrxUC Health GLUCOSE LABon 96-78-0292Lfbchtx mass conc82 mg/gVHzokfh56-104Uhk [facility] HospitalComment on above:Performed By: #### 69503, 16534, 44208 ####[facility] [place] [address], [facility] HOSPITALGlucose mass zbzv169 mg/pNGcbr14-369Rum [facility] HospitalComment on above:Performed By: #### 52975, 76643, 66276 ####[facility] [facility] [place] [address], [facility] BASIC METABOLIC PANELon 48-62-2245Fpnhtzz9.5 mg/dLLow8.6-10.3The [facility] HospitalComment on above:Order Comment: No: Do not add to previous drawPerformed By: #### 70602 ####[facility] [place] [address], THGPhunphvg265 mmol/RNsxqrl74-550Yjs [facility] HospitalComment on above:Order Comment: No: Do not add to previous drawPerformed By: #### 47567 ####[facility] [place] [address], OKUIJ710 mmol/CGjrsxn31-61Djv [facility] HospitalComment on above:Order Comment: No: Do not add to previous drawPerformed By: #### 96039 ####[facility] [place] [address], USACreatinine1.29 mg/dLNormal 0.70-1.30The [facility] HospitalComment on above:Order Comment: No: Do not add to previous drawPerformed By: #### 02087 ####[facility] [facility] [place] [address], [facility]OSPITALeGFR (black) mL/min/{1.73_m2}Normal>60The [facility] HospitalComment on above:Order Comment: No: Do not add to previous drawResult Comment: Calculation may not be valid for patients over 70 yearsPerformed By: #### 11115 ####[facility] [facility] [place] [address], [place] eGFR (non-black)55 ml/min/1.73sq mAbnormal>60The [facility] HospitalComment on above:Order Comment: No: Do not add to previous drawResult Comment: Calculation may not be valid for patients over 70 yearsPerformed By: #### 13812 ####[facility] [facility] [facility] [place] [address], [facility] HOSPITALGlucose mass conc76 mg/sKYfdmmu91-133Xjk [facility] HospitalComment on above:Order Comment: No: Do not add to previous drawPerformed By: #### 16020 ####[facility] [place] [address], USAPotassium molar conc4.0 mmol/LNormal3.5-5.1The [facility] HospitalComment on above:Order Comment: No: Do not add to previous draw Performed By: #### 70758 ####[facility] [place] [address], KQZNdygzx301 mmol/PMevfkc632-544Nsm [facility] HospitalComment on above:Order Comment: No: Do not add to previous draw Performed By: #### 37611 ####[facility] [place] [address], USAUrea mvqyxbov14 mg/dLNormal7-25The [facility] HospitalComment on above:Order Comment: No: Do not add to previous draw Performed By: #### 04236 ####[facility] [place] [address], [place] GLUCOSE LABon 64-72-4936Myyiqay mass conc70 mg/dL Lmaetr91-910Ifr [facility] HospitalComment on above:Performed By: #### 04961, 11422, 42113 ####[facility] [place] [address], USAGlucose mass conc57 mg/yUVsh65-577Njo [facility] HospitalComment on above:Performed By: #### 59790 ####[facility] [place] [address], [place] Glucose mass conc93 mg/oMXawveg39-545Hbw [facility] Comment on above:Performed By: #### 86419 ####[facility] [place] [address], USAGlucose mass conc64 mg/cFOst93-935 The [facility] HospitalComment on above:Performed By: #### 75328 ####[facility] [place] [address], [place] Glucose mass conc75 mg/zGQcmmct88-861Bzj [facility] Comment on above:Performed By: #### 79870 ####[facility] [place] [address], [facility] HOSPITALPROTHROMBIN TIMEon 51-99-3613SXP Coag RelTime (PPP)1.11 {INR}Normal0.91-1.16The [facility] HospitalComment on above:Order Comment: No: Do not add to previous drawResult Comment: ACCCP RECOMMENDED INR FOR WARFARIN THERAPY CONDITION INRPROPHYLAXIS OF VENOUS THROMBOSIS 2-3(HIGH-RISK SURGERY)TREATMENT OF VENOUS THROMBOSIS 2-3TREATMENT OF PULMONARY EMBOLISM 2-3PREVENTION OF SYSTEMIC EMBOLISM: 2-3 ACUTE MYOCARDIAL INFARCTION TISSUE HEART VALVES VALVULAR HEART DISEASE ATRIAL FIBRILLATION RECURRENT SYSTEMIC EMBOLISMMECHANICAL HEART VALVE 2.5-3.5 FROM: ORAL ANTICOAGULANTS. MECHANISM OF ACTION, CLINICALEFFECTIVENESS, AND OPTIMAL THERAPEU TIC RANGE. [id number];108:231S-246S.Performed By: #### 59149 ####[facility] [facility] [place] [place] [address], [facility] HOSPITALProthrombin time (PT) Coag time (PPP)14.4 uZxivkx65.3-14.8The [facility] Comment on above:Order Comment: No: Do not add to previous drawResult Comment: ALL RESULTS MUST BE INTERPRETED WITH RESPECT TO BLOOD DRAWING ARTIFACTOR DILUTION ERROR OF ANTICOAGULANT AT THE TIME OF SAMPLING.Performed By: #### 12437 ####[facility] [facility] [place] [place] [address], [facility] BASIC METABOLIC PANELon 18-00-3783Zenxcag9.2 mg/dLNormal8.6-10.3The [facility] HospitalComment on above:Order Comment: No: Do not add to previous drawPerformed By: #### 56077 ####[facility] [place] [address], DHOOlivkmhk389 mmol/CMofrhr27-706Brw [facility] HospitalComment on above:Order Comment: No: Do not add to previous drawPerformed By: #### 05649 ####[facility] [place] [address], YZCZF449 mmol/ADijuee21-56Pqv [facility] HospitalComment on above:Order Comment: No: Do not add to previous drawPerformed By: #### 28151 ####[facility] [place] [address], USACreatinine1.56 mg/dLHigh0.70-1.30 The [facility] HospitalComment on above:Order Comment: No: Do not add to previous drawPerformed By: #### 33615 ####[facility] [place] [address], USAeGFR (black)53 ml/min/1.73sq mAbnormal>60The [facility] HospitalComment on above:Order Comment: No: Do not add to previous drawResult Comment: Calculation may not be valid for patients over 70 yearsPerformed By: #### 74947 ####[facility] [place] [address], [place] eGFR (non-black)44 ml/min/1.73sq mAbnormal>60The [facility] HospitalComment on above:Order Comment: No: Do not add to previous drawResult Comment: Calculation may not be valid for patients over 70 yearsPerformed By: #### 23830 ####[facility] [place] [address], USAGlucose mass conc88 mg/kCQjsqii58-624Uqo [facility] HospitalComment on above:Order Comment: No: Do not add to previous drawPerformed By: #### 91154 ####[facility] [facility] [place] [place] [address], USAPotassium molar conc4.3 mmol/LNormal3.5-5.1The [facility] HospitalComment on above:Order Comment: No: Do not add to previous draw Performed By: #### 74398 ####[facility] [facility] [place] [place] [address], YXQZcmhvp622 mmol/KDyzcqk147-895Max [facility] HospitalComment on above:Order Comment: No: Do not add to previous draw Performed By: #### 42237 ####[facility] [facility] [place] [place] [address], USAUrea vziecrck05 mg/dLHigh7-25The [facility] HospitalComment on above:Order Comment: No: Do not add to previous draw Performed By: #### 64345 ####[facility] [facility] [place] [place] [address], [facility]OSPITALCBC W/DIFFon 30-41-8890Fevvgkgqi Auto #/vol (Bld)0.4 % Normal0.0-2.0The [facility] HospitalComment on above:Order Comment: No: Do not add to previous drawPerformed By: #### 55939 ####[facility] [facility] [place] [place] [address], [facility] HOSPITALEosinophils/100 leukocytes2.1 %Normal0.0-5.0The [facility] HospitalComment on above:Order Comment: No: Do not add to previous drawPerformed By: #### 98371 ####[facility] [facility] [place] [place] [address], [place] Erythrocyte distribution width Auto Ratio (RBC)14.9 %Qnfbzf17.5-16.9The [facility] HospitalComment on above:Order Comment: No: Do not add to previous drawPerformed By: #### 01627 ####[facility] [place] [address], [facility] HOSPITALErythrocytes (RBC)4.60 mill/mm3 Normal4.30-5.90The [facility] HospitalComment on above:Order Comment: No: Do not add to previous drawPerformed By: #### 76714 ####[facility] [place] [address], [facility] HOSPITALHematocrit (HCT) 40.0 %Jdnijo80.0-55.0The [facility] HospitalComment on above: Order Comment: No: Do not add to previous drawPerformed By: #### 02059 ####[facility] [facility] [address], [facility] Hemoglobin mass conc (Bld)12.9 g/dLLow13.9-16.3The [facility] HospitalComment on above:Order Comment: No: Do not add to previous drawPerformed By: #### 48187 ####[facility] [facility] [place] [address], [facility] HOSPITALLymphocytes/100 qqqriiivla74.0 %Qucuij63.0-40.0The [facility] HospitalComment on above:Order Comment: No: Do not add to previous drawPerformed By: #### 04728 ####[facility] [facility] [place] [place] [address], LHQCYG46.9 ryAtomld45.0-32.0The [facility] HospitalComment on above:Order Comment: No: Do not add to previous drawPerformed By: #### 70120 ####[facility] [facility] [place] [place] [address], [facility] HOSPITALMCHC mass conc (RBC)32.1 g/uYBkzbjc21.0-36.0 The [facility] HospitalComment on above:Order Comment: No: Do not add to previous drawPerformed By: #### 84796 ####[facility] [place] [address].[place] [id number], XPVOHE41.0 wDEcsvst56.0-100.0 The [facility] HospitalComment on above:Order Comment: No: Do not add to previous drawPerformed By: #### 92403 ####[facility] [place] [address], USAMETHODNormal RBC MorphologyNormalThe [facility] HospitalComment on above:Order Comment: No: Do not add to previous drawPerformed By: #### 39274 ####[facility] [facility] [place] [place] [address], USAMONOS6.6 %Normal 2-8The [facility] HospitalComment on above:Order Comment: No: Do not add to previous drawPerformed By: #### 15023 ####[facility] [facility] [place] [place] [address], [facility]OSPITALNeutrophils/100 leukocytes 69.9 %Uedxtt02-55Ans [facility] HospitalComment on above:Order Comment: No: Do not add to previous drawPerformed By: #### 23324 ####[facility] [facility] [place] [place] [address], USAPLAT BRS450 Thou/kr8Xstlas853-720Swu [facility] HospitalComment on above: Order Comment: No: Do not add to previous drawPerformed By: #### 91798 ####[facility] [facility] [place] [place] [address], [place] WBC (Leukocytes)8.7 Thou/qm7Qyyjgd2.0-10.0The [facility] HospitalComment on above:Order Comment: No: Do not add to previous drawPerformed By: #### 35573 ####[facility] [facility] [place] [place] [address], [facility]DI[facility] HOSPITALPOC GLUCOSE LABon 51-82-8836Nmkwhaw mass conc97 mg/wXDrooal77-615 The [facility] HospitalComment on above:Performed By: #### 76098 ####[facility] [facility] PROTHROMBIN TIMEon 63-59-3169LPQ Coag RelTime (PPP)1.10 {INR}Normal0.91-1.16The [facility] HospitalComment on above:Order Comment: No: Do not add to previous drawResult Comment: ACCCP RECOMMENDED INR FOR WARFARIN THERAPY CONDITION INRPROPHYLAXIS OF VENOUS THROMBOSIS 2-3(HIGH-RISK SURGERY)TREATMENT OF VENOUS THROMBOSIS 2-3TREATMENT OF PULMONARY EMBOLISM 2-3PREVENTION OF SYSTEMIC EMBOLISM: 2-3 ACUTE MYOCARDIAL INFARCTION TISSUE HEART VALVES VALVULAR HEART DISEASE ATRIAL FIBRILLATION RECURRENT SYSTEMIC EMBOLISMMECHANICAL HEART VALVE 2.5-3.5 FROM: ORAL ANTICOAGULANTS. MECHANISM OF ACTION, CLINICALEFFECTIVENESS, AND OPTIMAL THERAPEU TIC RANGE. [id number];108:231S-246S.Performed By: #### [id number] ####[facility].[address] StreetProthrombin time (PT) Coag time (PPP)14.3 yLyfmbf61.3-14.8[facility] Comment on above:Order Comment: No: Do not add to previous drawResult Comment: ALL RESULTS MUST BE INTERPRETED WITH RESPECT TO BLOOD DRAWING ARTIFACTOR DILUTION ERROR OF ANTICOAGULANT AT THE TIME OF SAMPLING.Performed By: #### 59556 ####[facility] [place] [place] [address], [facility] Discharge Summaryon [id number] SummaryMR#: [id number] [facility] Name[facility] Yann Francis Admitted: 05/13/2017Discharged: 05/16/2017 Date of : 1945 Physician: Dorcas Chin M.D. DISCHARGE SUMMARYDISCHARGING ATTENDING: Dr. Dorcas Chin.PRIMARY DIAGNOSES:1. Symptomatic advanced second-degree AV block, dual chamber (right atrium and right ventricle) AICD.2. Bradycardia.SECONDARY DIAGNOSES:1. Coronary artery disease, drug-eluting stent to LAD in 2010 and 2011. PCI and SHER to the posterolateralventricular branch of RCA in 2003.2. Diastolic heart failure.3. Peripheral vascular disease.4. Hypertension.5. Diabetes.6. CKD.7. Obstructive sleep apnea.8. Bilateral DVT and pulmonary embolism, on Coumadin. IVC Trapeze filter placement in 2006. He was evaluated at [facility] and [facility] for thrombosed IVC filter and was told that conservative management is the best option.9. Iron deficiency anemia.PROCEDURE:1. Dual chamber right atrium and right ventricular AICD on 05/14/2017.2. Right ventricular lead repositioning on 05/15/2017.HPI: Mr. Francis is a 71 years old male who was transferred from [facility] with a presyncopal episode and fatigue. His family reported clarita the was dizzy, lightheaded and incoherent after dinner. EKG at [facility] showed high-degree AV block with subsequent [...] fatigue in the past.He was transferred to [facility] with symptomatic high second-degree AV block forpacemaker insertion.During hospital stay to [facility], the patient had episode of dizziness when hewas bradycardic. EKG and telemonitor showed second-degree Mobitz type 1 AVblock, second-degree 2-1 block and advanced second-degreeAV block withmultiple nonconducting P-waves and bradycardia, heart rate in the 40s and60s.The patient went for pacemaker insertion on 05/14/2017. No bleeding orhematoma was seen at the device incision site. Overnight, there wasepisode of non-capturing beats. Device was interrogated and the pacemakerch est x-ray showed displaced right ventricular lead towards theinterventricular septum. Subsequently,the patient went for rightventricular lead repositioning on 05/15/2017. After lead repositioning,telemetry shows sinus rhythm, 61 to 70 beats per minute, AV paced, andblood pressure 108/87. The patient's condition was stable upon discharge.INSTRUCTIONS: The patient was instructed to keep the left armsling at thebedtime for 6 weeks and to keep the elbow below the shoulder level.The patient will follow up the ICD device in device clinic in 1 week. Anappointment was set at 05/22/[address] Charlie Stark and the patient willfollow up with Dr. Brad Boogie in 1 month. The appointment was set at1 017.DISCHARGE MEDICATION: Include the following.1. Aspirin 81 mg once per day.2. Coreg 3.125 twice per day.3. Isosorbide mononitrate 30 mg at bedtime.4. Nifedipine 60 mg once daily.5. Torsemide 20 mgonce daily.6. Warfarin 5 mg once daily.7. Temazepam [...] Chin M.D. 06/08/2017 01:30 A Dorcas Chin M.D. I personally saw this patient on the day of the encounter, performed thekey portion(s) of the se rvice and participated in the management andconfirm the resident's documentation. Please note theremay be anadditional personal documentation from me. Date Dict: 05/17/2017/08:48 P/Diaz Deondre Teran Trans: 05/18/2017 02:15 A/mmoDN_JN:[id number]: Charlie Stark M.D. [address] [place] [address]RfowsoRmsSelect Medical Cleveland Clinic Rehabilitation Hospital, AvonCardiovascular Lab Reporton [id number] Lab ReportUnMiami Valley Hospital Patient Name: Yann Francis [facility] MR #: [id number] Physician: Shannon ChinDepartment of M.D.Medicine Service Date: 05/15/2017Division of Birthdate: 4Cardiology Room #: 3AB [id number] CardiovascularServices[address] [address]Bvriz Fax Cardiovascular Laboratory ReportPROCEDURE: Revision of RV lead.INDICATION: The patient had a pacemaker implant yesterday and was in bed,on bed restand the next morning, the check of the [...] (RVlead) and a stylet with a 3/4 mooretown curve wasforwarded down the lead andthe lead tip was retracted with a wrench under fluoroscopic guidance andthe lead was then repositioned in the septal portion. However, this didnot have as quite of sensing,thus the lesser curve stylet was used andthis was in slightly better position and a 3rd stylet witheven less of acurve was used and this was in optimal position with R-waves of 10-12 mVamplitude andthreshold was 0.4 V at 0.4 milliseconds. The [...] lead.2. RV lead, Biotronik Solia S53.3. Model #66183, serial #[id number]. RV sensing was 12 mV.5. RV pacing threshold was 0.4 V at 0.4 milliseconds.6. RV lead impedance 682 ohms.7. RA lead retained and capped inside the port of the pacer.8. The check showed a P-wave of 3.4 mV, a threshold of 0.8 V at 0.4 milliseconds and the impedance was 448 ohms.9. This is a Biotronik Solia S45 cm, model #649554 and serial #[id number].Retained pulse generator model Eluna 8 DR-T, model #716090 and serial#[id number].FINAL CONCLUSIONS:1. Successful repositioning of RV lead.2. We [...] for and a new 60 cm lead beused for the RV. Hopefully, this will not be needed. The patient is going home with a sling, but I believe the radiographic technique that was done was probably the culprit of dislodging the RV lead.Electronically Signed by:Dorcas Chin M.D. 06/08/2017 01:30 A Dorcas Chin M.D.Date Dict: 05/16/2017/05:30 P/Dorcas Chin M.D.Date Trans: 05/17/2017 06:31 A/mmoDN_JN:[id number]: Charlie Stark M.D. [address] [place] [address]TeqjdjRtaSelect Medical Cleveland Clinic Rehabilitation Hospital, AvonBASIC METABOLIC PANELon 80-60-0619Zoojkiz4.4 mg/dLLow8.6-10.3The [facility] HospitalComment on above:Order Comment: No: Do not add to previous drawPerformed By: #### 04596 ####[facility] [place] [address], ZHCIqzhpgou172 mmol/WSbwzbi97-575Mff [facility] HospitalComment on above:Order Comment: No: Do not add to previous drawPerformed By: #### 36146 ####[facility] [place] [address], QVALV623 mmol/HFmpwmw50-79Bss [facility] HospitalComment on above:Order Comment: No: Do not add to previous drawPerformed By: #### 41062 ####[facility] [place] [address], USACreatinine1.39 mg/dLHigh0.70-1.30 The [facility] HospitalComment on above:Order Comment: No: Do not add to previous drawPerformed By: #### 23664 ####[facility] [place] [address], [facility]OSPITALeGFR (black) mL/min/{1.73_m2}Normal>60The [facility] HospitalComment on above:Order Comment: No: Do not add to previous drawResult Comment: Calculation may not be valid for patients over 70 yearsPerformed By: #### 26235 ####[facility] [place] [address], [place] eGFR (non-black)50 ml/min/1.73sq mAbnormal>60The [facility] HospitalComment on above:Order Comment: No: Do not add to previous drawResult Comment: Calculation may not be valid for patients over 70 yearsPerformed By: #### 38640 ####[facility] [place] [address], [facility] HOSPITALGlucose mass conc70 mg/uUTeycct55-475Fax [facility] HospitalComment on above:Order Comment: No: Do not add to previous drawPerformed By: #### 65241 ####[facility] [place] [address], USAPotassium molar conc4.0 mmol/LNormal3.5-5.1The [facility] HospitalComment on above:Order Comment: No: Do not add to previous draw Performed By: #### 17757 ####[facility] [place] [address], QATSyonoc543 mmol/DXvyeus536-828Drj [facility] HospitalComment on above:Order Comment: No: Do not add to previous draw Performed By: #### 36685 ####[facility] [place] [address], USAUrea mg/dLNormal7-25The [facility] HospitalComment on above:Order Comment: No: Do not add to previous draw Performed By: #### 94289 ####[facility] [place] [place] [address], [facility] HOSPITALCBC W/DIFFon 00-04-0654Uegvwbtsc Auto #/vol (Bld)0.5 % Normal0.0-2.0The [facility] HospitalComment on above:Order Comment: No: Do not add to previous drawPerformed By: #### 02243 ####[facility] [place] [place] [address], [facility] HOSPITALEosinophils/100 leukocytes3.3 %Normal0.0-5.0The [facility] HospitalComment on above:Order Comment: No: Do not add to previous drawPerformed By: #### 38016 ####[facility] [place] [place] [address], [place] Erythrocyte distribution width Auto Ratio (RBC)15.0 %Povioy32.5-16.9The [facility] HospitalComment on above:Order Comment: No: Do not add to previous drawPerformed By: #### 92758 ####[facility] [place] [address] [address], [facility] HOSPITALErythrocytes (RBC)4.59 mill/mm3 Normal4.30-5.90The [facility] HospitalComment on above:Order Comment: No: Do not add to previous drawPerformed By: #### 58413 ####[facility].[place] [id number], [facility]DI[facility] HOSPITALHematocrit (HCT) 40.0 %Uokfwp12.0-55.0The [facility] HospitalComment on above: Order Comment: No: Do not add to previous drawPerformed By: #### 03965 ####[facility] [place] [place] [address], [facility] Hemoglobin mass conc (Bld)12.8 g/dLLow13.9-16.3The [facility] HospitalComment on above:Order Comment: No: Do not add to previous drawPerformed By: #### 52817 ####[facility] [place] [address], [facility] HOSPITALLymphocytes/100 gqogqfobci63.3 %Sqihwo46.0-40.0The [facility] HospitalComment on above:Order Comment: No: Do not add to previous drawPerformed By: #### 25968 ####[facility] [place] [place] [address], PRZDYD47.9 gyYwqtxp79.0-32.0The [facility] HospitalComment on above:Order Comment: No: Do not add to previous drawPerformed By: #### 82401 ####[facility] [place] [place] [address], [facility]DI[facility] HOSPITALMCHC mass conc (RBC)32.1 g/uWNzoenn23.0-36.0 The [facility] HospitalComment on above:Order Comment: No: Do not add to previous drawPerformed By: #### 06605 ####[facility] [place] [place] [address], VCGGCW77.2 aGNlxlfh73.0-100.0 The [facility] HospitalComment on above:Order Comment: No: Do not add to previous drawPerformed By: #### 17017 ####[address] [place] [address], USAMETHODNormalThe [facility] Community HospitalComment on above:Order Comment: No: Do not add to previous drawResult Comment: Automated differential performedNormal RBC MorphologyPerformed By: #### 29059 ####[facility] [place] [address], USAMONOS8.2 %High2-8The [facility] HospitalComment on above:Order Comment: No: Do not add to previous draw Performed By: #### 64526 ####[facility] [place] [address], [facility] HOSPITALNeutrophils/100 sgmzzgknra67.7 %Szbiwn26-17Bka [facility] HospitalComment on above:Order Comment: No: Do not add to previous drawPerformed By: #### 87769 ####[facility] [place] [address], USAPLAT RYI397 Thou/lm4Tksdnx591-751 The [facility] HospitalComment on above:Order Comment: No: Do not add to previous drawPerformed By: #### 68995 ####[facility] [place] [place] [address], [facility] HOSPITALWBC (Leukocytes)5.7 Thou/ua3Xvqjzb7.0-10.0The [facility] HospitalComment on above: Order Comment: No: Do not add to previous drawPerformed By: #### 03502 ####[facility] [place] [place] [address], [place] POC GLUCOSE LABon 68-03-4472Bhnxuqz mass qymc382 mg/uMKmkf71-792Onh [facility] HospitalComment on above:Performed By: #### 28282 ####[facility] [place] [place] [address], [facility]OSPITALGlucose mass conc71 mg/fWCfzimh45-752Ekp [facility] HospitalComment on above: Performed By: #### 66743 ####[facility] [place] [address], USAPORTABLE CHEST 1 VIEWon 40-50-4874VNYCTXQN CHEST 1 VIEW [facility] HospitalDepartment of Kjwlmgsew[address] [place] [id number] Patien t Name: YANN FRANCIS : 1945Sex: MAge: Race: WhiteMRN: [id number]. Location: [id number]: IVisit #: [id number] Date: 05/16/2017 8:00:00 AMCompleted Date: 05/16/2017 07:24 AMRequesting Provider: DIAZ TERAN Attending Provider: ROSEMARY MONTGOMERY Report Copy To: Signs &Symptoms: Post Pacemaker/AICD PlacementHistory: Patient history not availableComments: Check Pacemaker/AICD Lead PositionExam: PORTABLE CHEST 1 VIEWAccession #: [id number] PORTABLE CHEST 1 VIEW 05/16/2017 7:24 AM [...] unchanged. No pleural effusion. No pneumothorax. There issome persistent right middle lobe atelectasis. Lungs otherwise clear. IMPRESSION: Dual lead AICD rem ains in place with leads projecting over the expected locations of the right atrium and right ventricle. Approved by:Gail Garcia on 05/16/2017 7:32 AM EDT. I, Matthew Serrano, have reviewed the images and report and concur with these findings. Electronically signed by:Matthew Serrano. Transcribed by: [id number], User Resident: GAIL GARCIAElectronically Signed by: MATTHEW SERRANO @ 05/16/2017 10:04 AMI personally read this/these film(s) with this [facility] HospitalComment on above:Order Comment: No: Do not add to previous drawPROTHROMBIN TIMEon 43-45-8916ICP Coag RelTime (PPP)1.18 {INR}High0.91-1.16[facility] Comment on above:Order Comment: No: Do not add to previous drawResult Comment: ACCCP RECOMMENDED INR FOR WARFARIN THERAPY CONDITION INRPROPHYLAXIS OF VENOUS THROMBOSIS 2-3(HIGH-RISK SURGERY)TREATMENT OF VENOUS THROMBOSIS 2-3TREATMENT OF PULMONARY EMBOLISM 2-3PREVENTION OF SYSTEMIC EMBOLISM: 2-3 ACUTE MYOCARDIAL INFARCTION TISSUE HEART VALVES VALVULAR HEART DISEASE ATRIAL FIBRILLATION RECURRENT SYSTEMIC EMBOLISMMECHANICAL HEART VALVE 2.5-3.5 FROM: ORAL ANTICOAGULANTS. MECHANISM OF ACTION, CLINICALEFFECTIVENESS, AND OPTIMAL THERAPEU TIC RANGE. [id number];108:231S-246S.Performed By: #### 29106 ####[facility] [place] [address], [facility]DI[facility] HOSPITALProthrombin time (PT) Coag time (PPP)15.1 sHigh12.3-14.8[facility] Comment on above:Order Comment: No: Do not add to previous drawResult Comment: ALL RESULTS MUST BE INTERPRETED WITH RESPECT TO BLOOD DRAWING ARTIFACTOR DILUTION ERROR OF ANTICOAGULANT AT THE TIME OF SAMPLING.Performed By: #### 85109 ####[facility] [place] [place] [address], [facility] APTTon 33-15-2740lVGD59.8 bVqytrt84.0-35.0The [facility] HospitalComment on above:Order Comment: if not already doneNo: Do not add to previous drawResult Comment: ALL RESULTS MUST BE INTERPRETED WITH RESPECT TO BLOOD DRAWING ARTIFACTOR DILUTION ERROR OF ANTICOAGULANT AT THE TIME OF SAMPLING.THE APTT SHOULD NOT BE USED TO MONITOR UNFRACTIONATED HEPARIN THERAPY, THIS LABORATORY NO LONGER HAS AN ESTABLISHED THERAPEUTIC RANGE BASEDON THE APTT. IT IS RECOMMENDED THAT THE UFH - HEPARIN ASSAY (ANTI- XAACTIVITY) BE USED FOR THIS PURPOSE.Performed By: #### 52100, 82228 ####[facility] [place] [address], [facility] BASIC METABOLIC PANELon 62-70-4017Vdogwpp2.8 mg/dLNormal8.6-10.3The [facility] HospitalComment on above:Order Comment: if not already doneNo: Do not add to previous drawPerformed By: #### 86730, 90000 ####[facility] [place] [place] [address], PUZDucdpppy843 mmol/L Rptcnv12-609Bkg [facility] HospitalComment on above:Order Comment: if not already doneNo: Do not add to previous drawPerformed By: #### 99719, 68014 ####[facility] [place] [place] [address], UKBQL314 mmol/JYfjwpi14-08Ios [facility] Comment on above:Order Comment: if not already doneNo: Do not add to previous drawPerformed By: #### 85131, 58338 ####[facility] [place] [address], USACreatinine1.71 mg/dLHigh0.70-1.30The [facility] HospitalComment on above:Order Comment: if not already doneNo: Do not add to previous drawPerformed By: #### 65505, 99461 ####[facility] [place] [address], [place] eGFR (black)48 ml/min/1.73sq mAbnormal>60The [facility] Comment on above:Order Comment: if not already doneNo: Do not add to previous drawResult Comment: Calculation may not be valid for patients over 70 years Performed By: #### 44457, 44763 ####[facility] [place] [address], USAeGFR (non-black)39 ml/min/1.73sq mAbnormal>60 The [facility] HospitalComment on above:Order Comment: if not already doneNo: Do not add to previous drawResult Comment: Calculation may not be valid for patients over 70 yearsPerformed By: #### 49143, 16875 ####[facility] [place] [address], [facility] Glucose mass conc94 mg/pQMjujpf66-447Qih [facility] Comment on above:Order Comment: if not already doneNo: Do not add to previous drawPerformed By: #### 58905, 19545 ####[facility] [place] [address], USAPotassium molar conc4.9 mmol/LNormal3.5-5.1 The [facility] HospitalComment on above:Order Comment: if not already doneNo: Do not add to previous drawPerformed By: #### 63999, 07652 ####[facility] [place] [address], [place] Feyypc992 mmol/BHnqlou120-895Bhg [facility] HospitalComment on above:Order Comment: if not already doneNo: Do not add to previous drawPerformed By: #### 03700, 41876 ####[facility] [place] [address], USAUrea bgromvmn83 mg/dLNormal7-25The [facility] HospitalComment on above:Order Comment: if not already doneNo: Do not add to previous drawPerformed By: #### 98071, 50614 ####[facility] [place] [address], [facility]OSPITALCBC W/DIFFon 98-22-4127Miscgolad Auto #/vol (Bld)0.4 %Normal0.0-2.0The [facility] HospitalComment on above:Order Comment: UnknownPerformed By: #### 67475 ####[facility] [place] [address], [facility]PITALEosinophils/100 leukocytes 1.8 %Normal0.0-5.0The [facility] HospitalComment on above:Order Comment: UnknownPerformed By: #### 92832 ####[facility] [place] [address], [facility] HOSPITALErythrocyte distribution width Auto Ratio (RBC)14.9 %Tujizd66.5-16.9The [facility] Comment on above:Order Comment: UnknownPerformed By: #### 62419 ####[facility] [place] [address], [facility] HOSPITALErythrocytes (RBC)4.72 mill/ni0Rwnudb3.30-5.90The [facility] HospitalComment on above:Order Comment: UnknownPerformed By: #### 52778 ####[facility] [place] [place] [address], USAHematocrit (HCT)41.0 % Rokssw08.0-55.0The [facility] HospitalComment on above:Order Comment: UnknownPerformed By: #### 76014 ####[facility] [place] [address], [facility] HOSPITALHemoglobin mass conc (Bld)13.1 g/dLLow13.9-16.3The [facility] HospitalComment on above:Order Comment: UnknownPerformed By: #### 82904 ####[facility] [place] [address], USALymphocytes/100 fmpvyfxzbx26.3 % Low20.0-40.0The [facility] HospitalComment on above:Order Comment: UnknownPerformed By: #### 98971 ####[facility] [place] [address], WQNCKE67.7 zoMpapwb09.0-32.0The [facility] HospitalComment on above:Order Comment: Unknown Performed By: #### 75529 ####[facility] [place] [address], [facility] HOSPITALMCHC mass conc (RBC)31.9 g/dLLow32.0-36.0The [facility] HospitalComment on above:Order Comment: UnknownPerformed By: #### 06801 ####[facility] [place] [address], EMYUDH04.8 uTHxqoii46.0-100.0The [facility] Comment on above:Order Comment: UnknownPerformed By: #### 78740 ####[facility] [place] [address], USAMETHODNormalThe [facility] HospitalComment on above:Order Comment: UnknownResult Comment: Automated differential performedNormal RBC MorphologyPerformed By: #### 47373 ####[facility] [place] [address], USAMONOS7.0 %Normal2-8The [facility] HospitalComment on above:Order Comment: UnknownPerformed By: #### 79151 ####[facility] [facility] [place] [place] [address], USANeutrophils/100 leukocytes 76.5 %Pxah24-56Plr [facility] HospitalComment on above:Order Comment: UnknownPerformed By: #### 12415 ####[facility] [place], [place] [address]E[place] [address], USAPLAT GDI682 Thou/mr0Wlegrg346-079 The [facility] HospitalComment on above:Order Comment: Unknown Performed By: #### 62173 ####[address] [place] [address], USAWBC (Leukocytes)6.1 Thou/qz8Nwiijf7.0-10.0The [facility] HospitalComment on above:Order Comment: Unknown Performed By: #### 90327 ####[address] [place] [address], USACHEST AND LATERALon 99-68-8626CYUST AND LATERAL [facility] HospitalDepartment of Anwmnpkbz[address] [place] [id number] Patien t Name: YANN FRANCIS : 1945Sex: MAge: Race: WhiteMRN: [id number]. Location: [id number]: IVisit #: [id number] Date: 05/15/2017 7:00:00 AMCompleted Date: 05/15/2017 08:35 AMRequesting Provider: VANDANA BLANCO Attending Provider: ROSEMARY MONTGOMERY Report Copy To: Signs & Symptoms: Post Pacemaker/AICD PlacementHistory: Patient history not availableComments: Check Pacemaker/AICD Lead Position, Chest X-ray PA \EANDE\ LAT in Dept ;DO NOT lift affected arm above shoulder. S/P pacemaker/ICD implant. Verify lead placementExam: CHEST AND LATERALAccession #: [id number] CHEST AND LATERAL 05/15/2017 8:35 AM EDT [...] lobe. Electronically signed by:Malika Mendiola. Transcribed by: [id number], User Resident: Electronically Signed by: MALIKA MENDIOLA @ 05/15/2017 10:18 AMNormalThe [facility] HospitalComment on above:Order Comment: if not already doneNo: Do not add to previous drawCardiovascular Lab Reporton 50-30-2200Vmppwkofouvlbm Lab Report [facility] Patient Name: Yann Francis [facility] MR #: [id number] Physician: Kel Paigeartment of Service Date: 05/14/2017Medicine Birthdate: 4Division of Room #: 3AB [id number] CardiovascularServicesAnd[place] [address]Phone Fax Cardiovascular Laboratory ReportPROCEDURE: Dual-chamber pacemaker implantation.ACID BLEACHER: Vandana Blanco M.D.REASON FOR THE PROCEDURE: Complete [...] did not show any interval increase incoronary arterydisease, bilateral DVTs, diverticulosis, left thighhematoma, NSTEMI, GERD, Sjogren's, BPH, vitamin D deficiency, andhyponatremia, who presented to the hospital at [place] because he had beenhaving presyncopal episodes and extreme fatigue. His family thought he hada stroke and on 05/13/2017, [facility]. The 1st EKG showedhigh-degree AV block with subsequent bradycardia in the 30s to 40s. Fabricio developed high- grade second-degree AV block and complete heart blockintermittently. [...] the deltopectoral groove about 3 cm in length. Subsequently, venogram was performed of the left upper [...] aJ-wire. The sheath was then removed and 6- Senegalese sheath was implanted overthe J wire. A double wiring was done. The 6- Senegalese sheath was removed.One of the wires was preservedfor later, the other wire had implantationof a new 6-Senegalese lead. After removal of the wire, the aly tricular leadwas placed in the RV mid septum with excellent parameters. Subsequently,the sheath wastorn, the lead was tied into place. The atrial lead wasthen implanted through a 6-Senegalese sheath that was placed over the otherJ- wire. The atrial lead parameters were not excellent, therefore theposition was repositioned. However, after the sheath was torn, there wasprobably a micro dislodgement because the P waves were decreasing inamplitude and also the threshold had become higher, therefore thelead wasrepositioned yet again with excellent parameters. The [...] irrigation was used to clean the pocket subsequently,anyareas that were bleeding were electrocauterized. A stay suture wasplaced through the header then closure was performed with 2-0, 3-0, 4-0sutures followed by Dermabond, Steri- Strips, and Tegaderm. Thepatienttolerated the procedure well. There was minimal blood loss. There was 5mL of contrast, therewas 5.2 minutes fluoroscopy.IMPRESSION:1. Successful implantation of a Biotronik dual-chamber pacemaker.2. The specifics of device are as follows. The device is a Taylor 8 DRT Pro MRI, model #822943, the serial #[id number]. The date of implant is 05/14/2017. The atrial lead is a Biotronik Solia S 45 cm, serial #[id number]. The threshold for the atrial lead is 1.4 V at 0.4 milliseconds, the P wave was 4.4mV and the impedance is 448 ohms. The ventricular lead is a Ramamiaronik Solia S 53, serial #[id number],model #[id number]. The threshold for the ventricular lead is 1 V at 0.4 milliseconds, the R-wave is 8.9mV and impedance is 526 ohms. The mode [...] in 1 week and then 1 month.10. Pos toperative care discussed with patient and family.Electronically Signed by:Ariana Ramos DO 05/21/2017 04:32 P Sindy Gtz Dict: 05/14/2017/05:38 P/Sindy Gtz Trans: 05/15/2017 02:03 P/mmoDN_JN:[id number]: Charlie Stark M.D. [address] [facility] [address]QmybwvFlpSt. Mary's Medical Center, Ironton CampusMAGNESIUM BLOODon 29-27-6765Esqotudji6.2 mg/dLNormal1.9-2.7The [facility] HospitalComment on above:Order Comment: if not already doneNo: Do not add to previous drawPerformed By: #### 16931, 49642 ####[facility] [place] [address], [facility] HOSPITALPHOSPHORUS BLOODon 95-95-8608Yfnlaaqns2.2 mg/dLNormal2.5-5.0[facility] Comment on above:Order Comment: UnknownPerformed By: #### 26429, 41645, 71034 ####[facility] [place] [address], [place] POC GLUCOSE LABon 33-42-0878Cbfyrca mass conc84 mg/sWWiqpbw17-345Yfo [facility] HospitalComment on above:Performed By: #### 34219 ####[facility] [place] [address], USAGlucose mass conc72 mg/bNPfxiqd67-669Vyx [facility] HospitalComment on above: Performed By: #### 30592, 58960 ####[facility] [facility] [place] [address], USAGlucose mass conc63 mg/sATyp52-149Col [facility] HospitalComment on above:Performed By: #### 17508, 36866 ####[facility] [place] [address], USAGlucose mass conc60 mg/oRUjg23-153Mid [facility] HospitalComment on above:Performed By: #### 92868, 37987 ####[facility] [facility] [facility] [place] [address], USAGlucose mass conc82 mg/dL Saaskx04-852Udj [facility] HospitalComment on above:Performed By: #### 07991, 19266 ####[facility] [place] [address] [place] [address], USAGlucose mass conc68 mg/jTYge64-516Xsy [facility] HospitalComment on above:Performed By: #### 84500, 50494 ####[facility] [facility] [place] [address], [place] Glucose mass conc95 mg/fVIhbcaw04-802Lku [facility] Comment on above:Performed By: #### 74750 ####[facility] [place] [address], USAPROTHROMBIN TIMEon 99-56-5470KDV Coag RelTime (PPP)1.34 {INR}High0.91-1.16The [facility] Comment on above:Order Comment: if not already doneNo: Do not add to previous drawResult Comment: [facility] RECOMMENDED INR FOR WARFARIN THERAPY CONDITION INRPROPHYLAXIS OF VENOUS THROMBOSIS 2-3(HIGH-RISK SURGERY)TREATMENT OF VENOUS THROMBOSIS 2-3TREATMENT OF PULMONARY EMBOLISM 2-3PREVENTION OF SYSTEMIC EMBOLISM: 2-3 ACUTE MYOCARDIAL INFARCTION TISSUE HEART VALVES VALVULAR HEART DISEASE ATRIAL FIBRILLATION RECURRENT SYSTEMIC EMBOLISMMECHANICAL HEART VALVE 2.5-3.5 FROM: ORAL ANTICOAGULANTS. MECHANISM OF ACTION, CLINICALEFFECTIVENESS, AND OPTIMAL THERAPEU TIC RANGE. [id number];108:231S-246S.Performed By: #### 78676, 34722 ####[facility].[address] Prothrombin time (PT) Coag time (PPP)16.7 sHigh12.3-14.8The [facility] HospitalComment on above:Order Comment: if not already doneNo: Do not add to previous drawResult Comment: ALL RESULTS MUST BE INTERPRETED WITH RESPECT TO BLOOD DRAWING ARTIFACTOR DILUTION ERROR OF ANTICOAGULANT AT THE TIME OF SAMPLING.Performed By: #### 48199, 79263 ####[facility].[address] StreetAPTUnited States Air Force [facility] 16-13-7354jMRT57.2 sNormal 25.0-35.0The [facility] HospitalComment on above:Order Comment: if not already doneNo: Do not add to previous drawResult Comment: ALL RESULTS MUST BE INTERPRETED WITH RESPECT TO BLOOD DRAWING ARTIFACTOR DILUTION ERROR OF ANTICOAGULANT AT THE TIME OF SAMPLING.THE APTT SHOULD NOT BE USED TO MONITOR UNFRACTIONATED HEPARIN THERAPY, THIS LABORATORY NO LONGER HAS AN ESTABLISHED THERAPEUTIC RANGE BASEDON THE APTT. IT IS RECOMMENDED THAT THE UFH - HEPARIN ASSAY (ANTI-XAACTIVITY) BE USED FOR THIS PURPOSE.Performed By: #### 60916, 55472 ####[facility] [place] [address], [place] BASIC METABOLIC PANELon 56-53-0347Qquuxvu6.9 mg/dLNormal8.6-10.3The [facility] HospitalComment on above:Order Comment: No: Do not add to previous drawPerformed By: #### 65960, 29991, 29647 ####[facility] [place] [address], VVBNvwzywzc350 mmol/LNormal 98-107The [facility] HospitalComment on above:Order Comment: No: Do not add to previous drawPerformed By: #### 45734, 93276, 39589 ####[facility] [place] [address], XBIZE906 mmol/L Uomqqm85-76Xmb [facility] HospitalComment on above:Order Comment: No: Do not add to previous drawPerformed By: #### 15880, 97091, 31517 ####[facility] [place] [address], [place] Creatinine1.42 mg/dLHigh0.70-1.30The [facility] HospitalComment on above:Order Comment: No: Do not add to previous drawPerformed By: #### 18709, 43534, 09336 ####[facility] [place] [address], USAeGFR (black)59 ml/min/1.73sq mAbnormal>60The [facility] HospitalComment on above:Order Comment: No: Do not add to previous draw Result Comment: Calculation may not be valid for patients over 70 yearsPerformed By: #### 66974, 40311, 96546 ####[facility] [place] [address], USAeGFR (non-black)49 ml/min/1.73sq mAbnormal>60 The [facility] HospitalComment on above:Order Comment: No: Do not add to previous drawResult Comment: Calculation may not be valid for patients over 70 yearsPerformed By: #### 56782, 46355, 17827 ####[facility] [place] [address], USAGlucose mass conc74 mg/rNNosupk94-837Ava [facility] HospitalComment on above:Order Comment: No: Do not add to previous drawPerformed By: #### 23084, 68737, 18204 ####[facility] [facility] [place] [address], [place] Potassium molar conc4.3 mmol/LNormal3.5-5.1The [facility] HospitalComment on above:Order Comment: No: Do not add to previous drawPerformed By: #### 47537, 14575, 95832 ####[facility] [facility] [place] [address], UNIGscsnc879 mmol/XZwpgji783-472Dsx [facility] HospitalComment on above:Order Comment: No: Do not add to previous drawPerformed By: #### 98612, 02629, 98772 ####[facility] [facility] [place] [address], USAUrea qjvnehfw10 mg/dL Normal7-25The [facility] HospitalComment on above:Order Comment: No: Do not add to previous drawPerformed By: #### 49955, 32588, 54870 ####[facility] [facility] [place] [address], [place] CBC COMPLETE BLOOD COUNTon 83-51-5659Jyiunwcehgx distribution width Auto Ratio (RBC)14.9 %Ecwrei98.5-16.9The [facility] HospitalComment on above:Order Comment: No: Do not add to previous drawPerformed By: #### 55314 ####[facility] [place] [address], [facility] Erythrocytes (RBC)4.51 mill/ht5Hakedl7.30-5.90The [facility] HospitalComment on above:Order Comment: No: Do not add to previous drawPerformed By: #### 85258 ####[facility] [place] [address], [facility] HOSPITALHematocrit (HCT)39.1 %Jtielg05.0-55.0The [facility] HospitalComment on above:Order Comment: No: Do not add to previous draw Performed By: #### 62108 ####[facility] [facility] [place] [address], [facility] HOSPITALHemoglobin mass conc (Bld)12.6 g/dLLow13.9-16.3The [facility] HospitalComment on above:Order Comment: No: Do not add to previous drawPerformed By: #### 85310 ####[facility] [facility] [place] [place] [address], NZRLZP10.0 znZsrqny25.0-32.0The [facility] HospitalComment on above:Order Comment: No: Do not add to previous drawPerformed By: #### 66312 ####[facility] [facility] [place] [place] [address], [facility]DI[facility] HOSPITALMCHC mass conc (RBC)32.3 g/dL Sobpqm52.0-36.0The [facility] HospitalComment on above:Order Comment: No: Do not add to previous drawPerformed By: #### 18823 ####[facility] [place] [address].[place] [address], XRHNCD75.9 fLNormal 80.0-100.0The [facility] HospitalComment on above:Order Comment: No: Do not add to previous drawPerformed By: #### 63031 ####[facility] [place] [address], USAPLAT IXG402 Thou/cs2Rbjqst 100-400The [facility] HospitalComment on above:Order Comment: No: Do not add to previous drawPerformed By: #### 02343 ####[facility] [place], [place] [address] [address], [facility] HOSPITALWBC (Leukocytes)6.3 Thou/bv2Azaava7.0-10.0The [facility] HospitalComment on above: Order Comment: No: Do not add to previous drawPerformed By: #### 02551 ####[facility] [facility] [place] [place] [address], [facility] MAGNESIUM BLOODon 72-14-8453Cdtqmljxx1.1 mg/dLNormal1.9-2.7The [facility] HospitalComment on above:Order Comment: No: Do not add to previous drawPerformed By: #### 43457, 96348, 40748 ####[facility] [facility] [place] [place] [address], [facility] HOSPITALPHOSPHORUS BLOODon 05-14-2017 Phosphate2.9 mg/dLNormal2.5-5.0The [facility] HospitalComment on above:Order Comment: No: Do not add to previous drawPerformed By: #### 69679, 39324, 52347 ####[facility] [place], [place] [address] [place] [address], [facility] HOSPITALPROTHROMBIN TIMEon 84-51-8851ZOQ Coag RelTime (PPP)1.52 {INR}High 0.91-1.16The [facility] HospitalComment on above:Order Comment: No: Do not add to previous drawResult Comment: [facility] RECOMMENDED INR FOR WARFARIN THERAPY CONDITION INRPROPHYLAXIS OF VENOUS THROMBOSIS 2-3(HIGH-RISK SURGERY)TREATMENT OF VENOUS THROMBOSIS 2-3TREATMENT OF PULMONARY EMBOLISM 2-3PREVENTION OF SYSTEMIC EMBOLISM: 2-3 ACUTE MYOCARDIAL INFARCTION TISSUE HEART VALVES VALVULAR HEART DISEASE ATRIAL FIBRILLATION RECURRENT SYSTEMIC EMBOLISMMECHANICAL HEART VALVE 2.5-3.5 FROM: ORAL ANTICOAGULANTS. MECHANISM OF ACTION, CLINICALEFFECTIVENESS, AND OPTIMAL THERAPEU TIC RANGE. [id number];108:231S-246S.Performed By: #### 81685 ####[facility].[address] StreetProthrombin time (PT) Coag time (PPP)18.5 sHigh12.3-14.8The [facility] Comment on above:Order Comment: No: Do not add to previous drawResult Comment: ALL RESULTS MUST BE INTERPRETED WITH RESPECT TO BLOOD DRAWING ARTIFACTOR DILUTION ERROR OF ANTICOAGULANT AT THE TIME OF SAMPLING.Performed By: #### 28145 ####[facility] [facility] [place] [place] [address], [facility] INR Coag RelTime (PPP)1.58 {INR}High0.91-1.16The [facility] HospitalComment on above:Order Comment: if not already doneNo: Do not add to previous drawResult Comment: [facility] RECOMMENDED INR FOR WARFARIN THERAPY CONDITION INRPROPHYLAXIS OF VENOUS THROMBOSIS 2-3(HIGH-RISK SURGERY)TREATMENT OF VENOUS THROMBOSIS 2-3TREATMENT OF PULMONARY EMBOLISM 2-3PREVENTION OF SYSTEMIC EMBOLISM: 2-3 ACUTE MYOCARDIAL INFARCTION TISSUE HEART VALVES VALVULAR HEART DISEASE ATRIAL FIBRILLATION RECURRENT SYSTEMIC EMBOLISMMECHANICAL HEART VALVE 2.5-3.5 FROM: ORAL ANTICOAGULANTS. MECHANISM OF ACTION, CLINICALEFFECTIVENESS, AND OPTIMAL THERAPEU TIC RANGE. [id number];108:231S-246S.Performed By: #### 02865, 33229 ####[facility].[address] Prothrombin time (PT) Coag time (PPP)19.1 sHigh12.3-14.8The [facility] HospitalComment on above:Order Comment: if not already doneNo: Do not add to previous drawResult Comment: ALL RESULTS MUST BE INTERPRETED WITH RESPECT TO BLOOD DRAWING ARTIFACTOR DILUTION ERROR OF ANTICOAGULANT AT THE TIME OF SAMPLING.Performed By: #### 93271, 24372 ####[facility].[address] Encounters Encounter DateEncounter TypeCare ProviderFacilityStart: 68-78-4324upskimimwb ZULEIMA UBWestern Reserve Hospitaltart: 06-13-2025 End: 00-92-4070qffaiyxbzfYHLQBarberton Citizens Hospitaltart: 80-60-1843tjosmtvxidFPBA [facility] Hospitaltart: 03-21-2025 End: 42-04-5712bvoxetszlwJxpvwzp R NILLFacility:[facility] HospitalClinttart: 03-21-2025 End: 43-07-6067Lumnwxw encounter procedureMichael R NILL [phone]-FuvplFirelands [facility] [place] Start: 27-96-3440nzbyzftuycGzaupkp NILLFacility:[facility] HospitalClinttart: 02-06-2025 End: 56-91-9709zutscqvyxmFQSOBK [facility] Start: 82-12-2387mtliuagodkPANXCoshocton Regional Medical Centertart: 60-95-1832qxkxhwlsxlAEDOCoshocton Regional Medical Centertart: 12-27-2024 End: 72-75-2150xozatmoabfACWMCoshocton Regional Medical Centertart: 08-22-2024 End: 44-56-6374egmbcqleaeOQJBZY [facility] Start: 01-05-2023 End: 14-87-7759sznkmxoydpDSDEYM Jason FAWWADFacility:L6Cgyeo: 12-08-2022 End: 04-48-9459lxsffssppnHYMTPV H FAWWADFacility:C4Vledi: 11-05-2022 End: 51-26-0428huserabdcrLHQKFO H FAWWADFacility:F3Bvzfk: 10-08-2022 End: 25-79-8808kxscnqnnqvBHUZPL H FAWWADFacility:O7Mhkwu: 09-08-2022 End: 85-60-6489vqyhatnousSBKDBM Jason FAWWADFacility:C1Necnh: 08-26-2022 End: 68-75-5706Vsvnddi encounter procedureJENNMARTIN E JACKIE [facility] start: 08-25-2022 End: 47-33-7170smxdpnohwkAR DOUGLAS HOY .Facility:C4Yhsag: 08-07-2022 End: 50-70-1875ahfvugtdiyTFHGEL Jason FAWWADFacility:F2Wjcvu: 07-08-2022 End: 04-93-2841duarikhdpxDHZWTV Jason FAWWADFacility:S3Xjymb: 07-01-2022 End: 04-72-6437aaylgvwvolXPQIPHH TUCKERFacility:S4Buaqq: 06-08-2022 End: 59-07-7525onnhiosfxaGUHDNT Jason FAWWADFacility:J8Uzhph: 05-08-2022 End: 96-35-7316bkmdakvgncQTAGXU H FAWWADFacility:W2Mjhfd: 05-06-2022 End: 31-98-1884mbuzujguldEDJYYHK TUCKERFacility:E7Hxpsf: 04-16-2022 End: 05-05-6566iuzfmkwpnbHIRPKTM TUCKERFacility:V6Kqygk: 04-07-2022 End: 22-34-4761prvfxsadvlRXDKDK H FAWWADFacility:F4Myozf: 03-07-2022 End: 85-33-8986lzctujbiyjKENKLQ H FAWWADFacility:H9Tyaoz: 06-10-2017 End: 90-16-8578HbuegyitcvBYPDVL GUPTAFacility:[facility]ITALtart: 06-04-2017 End: 35-67-3978BfdtnxahzfYVYCOCDW UNKNOWNFacility:[facility]OS[facility]ITALtart: 06-02-2017 End: 52-08-8640QmqdlhyjciVMZYEDL PHYSICIANFacility:[facility]OSPITALtart: 05-14-2017 End: 58-74-4801Etqpkgppzk and management of inpatientLAURA AM CHIN Facility:[facility] Procedures DateProcedureProcedure DetailPerforming ClinicianStart: 56-86-6708MUO screening SHAIKH SAVIomment on above:Performed By: #### PSAD #### [facility] [address] [place] [address] Dr. Wili CardonaStart: 95-77-9651WGQRFFIA OF CARDIAC LEAD IN HEART, PERCUTANEOUS APPROACHLAURA AM MURPHYStart: 06-66-8149GRSPLM PACE. DUAL OVIDIO IN CHEST SUBCU/FASCIA, OPENSAIMA KARIMStart: 35-09-4695LNDSDJBKU OF PACEMAKER LEAD INTO R VENTRICLE, PERC APPROACHSAIMA KARIMStart: 53-44-2485SWURXXQYG OF PACEMAKER LEAD INTO RIGHT ATRIUM, PERC APPROACHSAWATAUGA MEDICAL CENTER KAREL CAMINO HOSPITALtart: 97-49-7794Gciruzsegcutq prostatectomyJEMARTIN JACKIE Start: 12-32-6015Jrzxooercbzsolbwm with dilation of urethral strictureOASIS [facility] JACKIE Start: 01-77-3436Gtgfj ablation of prostateJENNIFER JACKIE Amputation of finger, except thumbJENNIFER JACKIE Comment on above:Rt. hand pinky fingerCataract surgery DOMINGO JACKIE CircumcisionJENNIFER JACKIE ColonoscopyJENNIFER JACKIE Coronary artery stent (physical object)Fernandez NILL Implantation of cardiac pacemakerJENNIFER JACKIE Insertion of inferior vena caval filterMichael NILL Intestinal obstruction (disorder)Fernandez NILL Placement of stent in cardiac conduitJENNIFER JACKIE Procedure on backJENNIFER JACKIE Procedure on kneeJENNIFER JACKIE Repair of meniscusMichael NILL Tonsillectomy and adenoidectomyJENNIFER JACIKE Immunizations Immunization DateImmunizationNotesCare VocponhpVkrxtdmz77-20-2662zjbokyrio virus vaccine, unspecified formulationMichael NILL [phone]-RknqcFirelands Regional Medical [facility] [place] 12-21-9767DMYB-CoV-2 (COVID-19) mRNAMUL.ORD!h62719Oemoikt NILL [phone]-VzrffFirelands Regional Medical [facility] [place] 10-62-2919WALW-CoV-2 (COVID-19) mRNA BNT-162b2 vaxMichael NILL [phone]-ZkdhcFirelands Regional Medical Center [facility] [place] 73-38-5410IPKF-CoV-2 (COVID-19) mRNA BNT-162b2 vaxMichael NILL [phone]-FbnayFirelands Regional Medical Center [facility] [place] 29-50-0771SKOL-CoV-2 (COVID-19) mRNA BNT-162b2 vaxMichael NILL [phone]-YcwtqFirelands Regional Medical [facility] [place] Payers DatePayer CategoryPayerPolicy ID2019Medicare [id number] Health Insurance [id number] 1960 Private Health [id number] 2.0.1.906237.3.57[id number] 2.0.1.462343.3.57[id number] 2..1.245948.3.57[id number] 2.840.1.074649.3.57[id number] 2.0.1.897088.3.57[id number] 2.840.1.821716.3.57[id number] 2.840.1.766835.3.57[id number] 2.840.1.909332.3.57[id number] 2.840.1.133954.3.57[id number] 2.16.840.1.306175.3.57[id number] 2.16.840.1.083647.3.57[id number] 2.16.840.1.785002.3.57[id number] 2.16.840.1.925802.3.57[id number] 2.16.840.1.650231.3.57[id number] 2.16.840.1.084144.3.57[id number] 2.16.840.1.75[id number] Social History DateTypeDetailFacilityStart: 08-26-2022 End: 94-04-1654Atjacfb smoking statusEx-smoker (finding)[facility] HospitalTobacco smoking statusNeverExecutive [facility]rology of [facility] Hospitalex Assigned At BirthMalKing's Daughters Medical Center Ohioexual OrientationFirelands Regional Medical [facility] [place] Start: 80-72-1687NzjLzxh (finding)[facility] Functional Status EhjcEsxlvuappyTnrpyjOhemofak46-98-3813Euoasazfyq StatusN/AExec[facility] of [facility] Progress note 02-06-2025 Note Date & EejyKkhcUcursxqh43-59-1379 NoteUT Cardiology - [facility] Subjective Yann Francis is a 79 y.o. year old [...] placement in 2006. He was evaluated at [facility] and then at [facility] for thrombosed IVC filter and was told that conservative management is the best option. 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 Ce (more content not included)...[facility] Progress note 08-22-2024 Note Date & FzhyBtcmRdcaaxiq57-11-7857 NoteUT Cardiology - [facility] Subjective Yann Francis is a 78 y.o. year old [...] placement in 2006. He was evaluated at [facility] and then at [facility] for thrombosed IVC filter and was told that conservative management is the best option. 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 No respiratory distress. Echo (more content not included)...[facility] Hospital Discharge instructions 08-26-2022 Note Date & PgucCucaSpszycxk20-58-2705 Hospital Discharge instructions Patient Education 08/26/2022 13:11:27 Benign Prostatic Hyperplasia Benign Prostatic Hyperplasia Benign prostatic hyperplasia (BPH) is an enlarged prostate gland that is caused by the normal agingprocess and not by cancer. The prostate is [...] urethra. Follow these instructions at home: Take yzfx-fdf-ddrulhf and prescription medicines only as told by [...] 08/24/2006 Document Revised: 07/19/2019 Document Reviewed: 09/28/2017 [employer] Patient Education 2020 [employer]. Follow Up Care 09/03/2021 12:26:25 With:DOMINGO MEJIA PA-C, URL Address: [address] [place] [address] [phone] When: Unknown Comments:[facility]EST [facility] Evaluation + Plan note Note Date & TypeNoteFacilityEvaluation + Plan note No data available for this section [facility] Hospital Discharge instructions Note Date & TypeNoteFacilityHospital Discharge instructions No data available for this section [facility] [place] Progress note Note Date & TypeNoteFacilityProgress note No data available for this section [facility] Summary Purpose Family History No Family [...] and content) DATE CREATED AUTHOR 03/02/2018 [facility] DATE CREATED AUTHOR AUTHOR'S ORGANIZ ATION 02/13/2023 [facility] DATE CREATED AUTHOR AUTHOR'S ORGANIZ ATION 03/25/2025 [facility] DATE CREATED AUTHOR AUTHOR'S ORGANIZ ATION 07/20/2025 [facility] Patient Care team informatio n (unrecognized section and content) Personnel Name: Charlie Stark MD Address: Address: [address] [place] [address] Personnel Name: Charlie Stark MD Address: [address] [place] [address] Tele[employer]: FOR RECORDS PERTAINING TO PATIENTS WHO [...] BE BASED ON THE PRIMARY CLINICAL RECORDS. [facility] [employer] [facility]. provides no warranty or guarantee of the accuracy or completeness of information in this document.
--- OUTSIDE RECORDS SUMMARY | 2025-09-02 18:03 | XMS_ITS | Patient Health Record ---
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 Name Role Phone Omid Stark Primary Care Provider [phone] Yawkey, Yasmin Unavailable [phone] Allergies Allergen (clinical drug ingredient) Drug/Non Drug Allergy documented on EMR Reaction Allergy Type Onset Date Status celecoxib CeleBREX Unknown Drug Allergy ActiveatorvastatinLipitorUnknownDrug AllergyActive Results Component Value Reference Range Notes BNP Reviewed date:06/08/2025 05:39:46 PM Interpretation: Performing Lab: Notes/Report: [facility] , NT Pro B Type Natriuretic Pept 1449.0 <=1800.0 p g/mL Performing Lab:see noteML - [facility] LBPROF 14(COMP METB) Reviewed date:06/08/2025 05:39:46 PM Interpretation: Performing Lab: Notes/Report: [facility] ,Foypai701585-209 mmol/LPotassium4.13.5-5.1 mmol/XZapjtsjh65479-836 mmol/LCarbon Rwaxkvs46.621.0-32.0 mmol/LAnion Gap9.8Xvvkvqr7910-645 mg/dLBlood Urea Nitrogen 22.07.0-18.0 mg/dLCreatinine1.070.70-1.30 mg/dLEstimated GFR ( Trudi>60 >=60 mL/min/1.73m 2Estimated GFR (Non- Jolie>60>=60 mL/min/1.73m 2BUN Creatinine Ratio20.3Oaokwxf1.48.5-10.1 mg/dLBilirubin Total0.60.2-1.0 mg/dL Aspartate Amino Ntklmfcjzkh6492-15 U/LAlanine Tuzkmbjpwbgstqvp6246-49 U/L Alkaline Lexirnysuxk2696-293 U/LTotal Protein6.66.4-8.2 g/dLAlbumin Level3.43.4- 5.0 g/dLGlobulin3.2Albumin Globulin Ratio1.1Performing Lab:[facility] LBCRP Reviewed date:04/28/2025 02:07:08 PM Interpretation: Performing Lab: Notes/Report: [facility] ,C Reactive Protein<0.50<=0.50 mg/dLPerforming Lab:see [facility] LBCA 19-9 Reviewed date:04/30/2025 11:27:57 AM Interpretation: Performing Lab: Notes/Report: [facility] ,[place] 19-9200-35 U/mL be used interchangeably. Results cannot be interpreted as Performed at: [facility] Oxygen Therapy Technician: James Sanders PhD, Phone: [phone] [employer] Electrochemiluminescence Immunoassay disease. Values obtained with different assay methods or kits cannot absolute evidence of the presence or absence of malignant [address] [place] [address] [phone] (ECLIA) Performing Lab:[facility] LBINSULIN Reviewed date:02/26/2025 12:10:22 PM Interpretation: Performing Lab: Notes/Report: [facility] ,Insulin3.32.6-24.9 uIU/mL [address], [place] [id number] Oxygen Therapy Technician: James Sanders PhD, Phone: [phone] Performed at: [facility] Performing Lab:see [facility] LBErythrocyte Sedimentation Rate Reviewed date:04/28/2025 01:01:33 PM Interpretation: Performing Lab: Notes/Report: [facility] ,Erythrocyte Sedimentation Rate10<=20 mm/hrPerforming Lab:see noteEast [facility] LBCEA Reviewed date:04/30/2025 11:27:57 AM Interpretation: Performing Lab: Notes/Report: [facility] ,CEA2.50.0-4.7 ng/mL interpreted as absolute evidence of the presence or Nonsmokers <3.9 (ECLIA) cannot be used interchangeably. Results cannot be [employer] Electrochemiluminescence Immunoassay Smokers <5.6 Values obtained with different assay methods or kits absence of malignant disease. Performing Lab:see noteLC - [facility] LBPROF 14(COMP METB) Reviewed date:04/25/2025 08:53:50 PM Interpretation: Performing Lab: Notes/Report: [facility] ,Ugnqrs956315-255 mmol/LPotassium4.53.5-5.1 mmol/DQjeuxxpj32136-468 mmol/LCarbon Bqwyzhs77.321.0-32.0 mmol/LAnion Gap9.1Dvwlwuu9985-968 mg/dLBlood Urea Nitrogen 27.07.0-18.0 mg/dLCreatinine1.230.70-1.30 mg/dLEstimated GFR ( Trudi>60 >=60 mL/min/1.73m 2Estimated GFR (Non- Ame56>=60 mL/min/1.73m 2BUN Creatinine Ratio22.5Vydxdfj2.98.5-10.1 mg/dLBilirubin Total0.50.2-1.0 mg/dL Aspartate Amino Lymittlyyjv1128-62 U/LAlanine Qcqbbjtrluxlxqcj5017-85 U/L Alkaline Cmvyfmqhogz9403-696 U/LTotal Protein7.16.4-8.2 g/dLAlbumin Level3.83.4- 5.0 g/dLGlobulin3.3Albumin Globulin Ratio1.2Performing Lab:see noteML - [facility] LBIRON Reviewed date:04/25/2025 08:53:50 PM Interpretation: Performing Lab: Notes/Report: [facility] ,Iron48.065.0-175.0 ug/dLPerforming Lab:see noteML - [facility] LB FERRITIN Reviewed date:04/25/2025 08:53:50 PM Interpretation: Performing Lab: Notes/Report: [facility] ,Xaamwbdj7715.026.0-388.0 ng/mLPerforming Lab:see note - [facility] LBCBC AUTO DIFF Reviewed date:04/25/2025 08:53:50 PM Interpretation: Performing Lab: Notes/Report: [facility] ,White Blood Count6.44.0-11.0 10 3/uLRed Blood Count4.724.70-6.10 10 6/uL Vberbmktxe18.514.0-18.0 g/mQAjuoxwvewi68.942.0-54.0 %Mean Corpuscular Thnowv18.0 80.0-94.0 fLMean Corpuscular Uxdoginqfv67.725.9-34.0 pgMean Corpuscular HGB Conc 33.029.9-35.2 g/dLRed Cell Distribution Width13.211.0-15.0 %Platelet Amsho233 150-450 10 3/uLMean Platelet Volume9.49.5-13.5 fLNeutrophils Percent Auto67.3 43.0-75.0 %Lymphocytes Percent Auto23.420.5-60.0 %Monocytes Percent Auto7.31.7- 12.0 %Eosinophils Percent Auto1.10.9-7.0 %Basophils Percent Auto0.60.2-2.0 % Immature Granulocytes Pct Auto0.30.0-0.5 %Neutrophils Absolute Auto4.31.4-6.5 10 3/uLLymphocytes Absolute Auto1.51.2-3.8 10 3/uLMonocytes Absolute Auto0.50.3-0.8 10 3/uLEosinophils Absolute Auto0.10.0-0.7 10 3/uLBasophils Absolute Auto0.00.0- 0.1 10 3/uLImmature Granulocytes Abs Auto0.020.00-0.03 10 3/uLPerforming Lab:see noteML - [facility] LBOccult Blood* Reviewed date:02/27/2025 08:23:15 PM Interpretation: Performing Lab: Notes/Report: [facility] ,Occult BloodPositivePerforming Lab:see noteML - [facility] LBURIC ACID SERUM Reviewed date:02/25/2025 01:48:46 PM Interpretation: Performing Lab: Notes/Report: [facility] ,Uric Acid3.43.5-7.2 mg/dLPerforming Lab:see noteML - [facility] LB TSH Reviewed date:02/25/2025 01:48:46 PM Interpretation: Performing Lab: Notes/Report: [facility] ,Thyroid Stimulating Hormone2.7580.358-3.740 uIU/mLPerforming Lab:see note - [facility] LBT4 Reviewed date:02/25/2025 01:48:46 PM Interpretation: Performing Lab: Notes/Report: [facility] ,T4 Thyroxine5.404.50-12.10 ug/dLPerforming Lab:see note - [facility] LBPSA SCREENING Reviewed date:02/25/2025 01:48:46 PM Interpretation: Performing Lab: Notes/Report: [facility] ,Prostate Specific Antigen Scrn0.18<=4.00 ng/mLPerforming Lab:see noteEast [facility] LBPROF 14(COMP METB) Reviewed date:02/25/2025 01:48:45 PM Interpretation: Performing Lab: Notes/Report: [facility] ,Xnedja176676-873 mmol/LPotassium4.83.5-5.1 mmol/ZLxpjnwqk41771-265 mmol/LCarbon Fgltgkc41.421.0-32.0 mmol/LAnion Gap10.0Dbovxaa5453-756 mg/dLBlood Urea Nitrogen 26.07.0-18.0 mg/dLCreatinine1.120.70-1.30 mg/dLEstimated GFR ( Trudi>60 >=60 mL/min/1.73m 2Estimated GFR (Non- Jolie>60>=60 mL/min/1.73m 2BUN Creatinine Ratio23.0Hkfaotq9.68.5-10.1 mg/dLBilirubin Total0.50.2-1.0 mg/dL Aspartate Amino Uzlisnelcod5212-32 U/LAlanine Rzvuqhnoxhsvhzsj2218-97 U/L Alkaline Klyntjrejpw2007-089 U/LTotal Protein6.26.4-8.2 g/dLAlbumin Level3.43.4- 5.0 g/dLGlobulin2.8Albumin Globulin Ratio1.2Performing Lab:see note - [facility] LBLIPID PROFILE Reviewed date:02/25/2025 01:48:45 PM Interpretation: Performing Lab: Notes/Report: [facility] ,Tprqphblmbfpc77<=150 mg/yUMqwexjhxitb687<=200 mg/dLHDL Mwnkfipkvun3636-34 mg/dL > or =60 mg/dl - LOW CARDIOVASCULAR RISK <40 mg/dl - HIGH CARDIOVASCULAR RISK LDL Cholesterol Pkfzemyxyk00.0 160-189 mg/dl HIGH <100 mg/dl OPTIMAL 130-159 mg/dl BORDERLINE HIGH >190 mg/dl VERY HIGH 100-129 mg/dl NEAR OR ABOVE OPTIMAL VLDL WCQYOUALECE69.4Chol HDL Ratio2.4 3.3 - 4.4 LOW RISK 4.4 - 7.1 AVERAGE RISK 7.1 - 11.0 MODERATE RISK >11.0 HIGH RISK Performing Lab:see noteML - [facility] LBGLYCOHEMOGLOBIN A1C Reviewed date:02/25/2025 01:48:45 PM Interpretation: Performing Lab: Notes/Report: [facility] ,Glycohemoglobin A1C5.94.5-6.2 % ACTION SUGGESTED ADA THERAPEUTIC TARGET < 7.0 > 7.0 ADA RECOMMENDED LIMIT 4.0 - 6.0 Estimated Average Fespumh645Evymidftdq Lab:see noteML - [facility] LB FREE T3 Reviewed date:02/25/2025 01:48:45 PM Interpretation: Performing Lab: Notes/Report: [facility] ,Free T32.062.18-3.98 pg/mLPerforming Lab:see noteML - [facility] LB CBC AUTO DIFF Reviewed date:02/25/2025 01:48:45 PM Interpretation: Performing Lab: Notes/Report: [facility] ,White Blood Count6.74.0-11.0 10 3/uLRed Blood Count4.704.70-6.10 10 6/uL Hsuayvzadi23.114.0-18.0 g/bDNzsjaduiwd20.242.0-54.0 %Mean Corpuscular Kqwtaw77.9 80.0-94.0 fLMean Corpuscular Vtvonursmz93.025.9-34.0 pgMean Corpuscular HGB Conc 32.629.9-35.2 g/dLRed Cell Distribution Width13.211.0-15.0 %Platelet Inunn746 150-450 10 3/uLMean Platelet Volume9.49.5-13.5 fLNeutrophils Percent Auto60.5 43.0-75.0 %Lymphocytes Percent Auto28.220.5-60.0 %Monocytes Percent Auto8.11.7- 12.0 %Eosinophils Percent Auto1.80.9-7.0 %Basophils Percent Auto1.00.2-2.0 % Immature Granulocytes Pct Auto0.40.0-0.5 %Neutrophils Absolute Auto4.11.4-6.5 10 3/uLLymphocytes Absolute Auto1.91.2-3.8 10 3/uLMonocytes Absolute Auto0.50.3-0.8 10 3/uLEosinophils Absolute Auto0.10.0-0.7 10 3/uLBasophils Absolute Auto0.10.0- 0.1 10 3/uLImmature Granulocytes Abs Auto0.030.00-0.03 10 3/uLPerforming Lab:see noteML - [facility] LBCA echo doppler complete Reviewed date:01/24/2025 08:43:09 PM Interpretation: Performing Lab: Notes/Report: Source Facility: [place] [address] Cardiology Report Signed Patient: DYLON FRANCIS MR#: [id number] : 1945 Acct:[id number] Age/Sex: 79 / M ADM Date: 01/24/25 Loc: CARD Attending Dr: EDUARD HOPSON Ordering Physician: EDUARD HOPSON Date of Service: 01/24/25 Procedure(s): CA echo doppler complete Accession Number(s): [id number] cc: John Stark M.D.; EDUARD HOPSON Patient Name: DYLON FRANCIS MR#: [id number] : 1945 Exam Date: 01/24/2025 Ordering Doctor: [...] HOPSON Signed By: 01/24/251828 DD/ 27 TD/TT: Kosher Dietary Service Manager:BNP Reviewed date:02/25/2025 01:48:46 PM Interpretation: Performing Lab: Notes/Report: [facility] ,NT Pro B Type Natriuretic Fqho8121.0<=1800.0 pg/mLPerforming Lab:see noteML - [facility] LB Reason For Referral Diagnosis 1 Nevus (D22.9) Referral Organization [facility] Referring Provider First Name Omid Referring Provider Last Name Lincoln Referring Provider Speciality Family Med laura Referred Provider Fernandez Feldman Referred Provider Specialty General Surg lamine Referral Priority Routine Medications Medication SIG (Take, Route, Frequency, Duration) Notes Start Date End Date Status Farxiga 10 MG 1 tablet Orally Once a day 4ActiveFerrous Sulfate 325 (65 Fe) MG1 tablet Orally BIDActiveEzetimibe 10 MG1 tablet on hold Orally Once a dayActiveOmeprazole 40 MGTAKE 1 CAPSULE BY MOUTH IN THE MORNING 30 MINUTES BEFORE MEAL; Duration: 90ActiveTemazepam 30 MG1 capsule at bedtime as needed Orally dx G47.00 Once a day; Duration: 30 days 5ActiveWarfarin Sodium 7.5 MG1 tablet Orally Once a day; Duration: 90 daysActiveColace 100 MG1 capsule as needed Orally Once a dayActiveVitamin D3 50 MCG (2000 UT)1 capsule Orally Once a dayActiveEntresto 24-26 MG1 tablet Orally Twice a day06/09/2024ctiveWarfarin Sodium 5 MG1 tablet Orally once daily; Duration: 90 daysActiveAspirin Adult Low Dose 81 MG1 tablet Orally Once a day 03/02/2024ctiveSpironolactone 25 MG1/2 tablet Orally once a day06/09/2024ctive Carvedilol 6.25 MG3 tablet with food Orally Twice a dayActiveMelatonin 10 MG2 Orally Q HSActiveAmitriptyline HCl 25 MGTAKE 1 TABLET BY MOUTH EVERYDAY AT BEDTIME; Duration: 90ActiveIsosorbide Mononitrate ER 30 MG1 tablet in the morning Orally Once a dayActiveCPAP Supplies --Use Mask and Tubing nightly DX STACEY; Duration: 30 days07/04/2025tiveLeqvio 284 MG/1.5MLas directed Subcutaneous every 6 ybznjm2306/09/2024ctive Immunizations Vaccine Route Administration Date Status Comme nts PermissionTV Syringe Pre -Filled 30 mcg/0.3 mL Unknown 06/30/2023 Administered [facility] Pfizer Syringe Pre-Filled 30 mcg/0.3 uWSqduipo09/24/2024dministered Flu, Fluad (3171-5913) (16823) 65 yrs+, single-dose syringeIM Intramuscular 06/15/20232160YqzjurtmpjgoVPQJ-WLF-4 (COVID 19 Pfizer 30mcg/0.3mL)Jrvhipt1111/12/2020 KoqdowjxmiceBLSU-TWS-2 (COVID 19 Pfizer 30mcg/0.3mL)Ctstcli6012/04/2020 AwvlwsyqzjjmMRNW-YNM-3 (COVID 19 Pfizer 30mcg/0.3mL)Hhqbsys3509/11/2021 WuflocimhcwjPEHW-EUV-3 (COVID 19) bivalent 30 mcg/0.3 ml dricXtwijku44/16/2022 AdministeredTdap (Boostrix)Csbtxnc8502/20/2018Administered Social History Tobacco Use: Social History Observation Description Date Details (start date - stop date) Former Smoker 09/07/1949 - 09/07/1973 Tobacco Use/Smoking Question Answer Notes Patient is a former smoker When did you start smoking?09/07/1949When did you stop smoking?09/07/1973Alcohol Screen (Audit-C) Question Answer Notes Did you have a drink containing alcohol in the p ast year? No Iqefko1SymjvvdoxqeucqFxktokvdSILNT-R (Standard) Question Answer Notes Did you have a drink containing alcohol in the p ast year? No Gcazvh1NtwjmcbluybwywOabuxaao Problems Problem Type SNOMED Code ICD Code Onset Dates Problem Status W/U Status Risk Notes Problem Information temporarily unavaila ble Type 2 diabetes mellitus with diabetic neuropathy, unspecified (E11.40) ActiveconfirmedProblemInformation temporarily unavailableHyperkalemia (E87.5) ActiveconfirmedProblemInformation temporarily unavailableOther insomnia (G47.09) ActiveconfirmedProblemInformation temporarily unavailableAdhesive capsulitis of left shoulder (M75.02)ActiveconfirmedProblemInformation temporarily unavailable History of falling (Z91.81)ActiveconfirmedProblemInformation temporarily unavailablePresence of other vascular implants and grafts (Z95.828)Active confirmedProblemInformation temporarily unavailableFatigue (R53.83)Active confirmedProblemInformation temporarily unavailableHypertension (I10)Active confirmedProblemInformation temporarily unavailablePulmonary embolism (I26.99) ActiveconfirmedProblemInformation temporarily unavailableBradycardia (R00.1) ActiveconfirmedProblemInformation temporarily unavailableDepression (F32.9) ActiveconfirmedProblemInformation temporarily unavailableObstructive sleep apnea (G47.33)ActiveconfirmedProblemInformation temporarily unavailableInsomnia (G47.00)ActiveconfirmedProblemInformation temporarily unavailableAcute bronchitis (J20.9)ActiveconfirmedProblemInformation temporarily unavailableWell adult (Z00.00)ActiveconfirmedProblemInformation temporarily unavailable Diverticulitis (K57.92)ActiveconfirmedProblemInformation temporarily unavailable Over weight (E66.3)ActiveconfirmedProblemInformation temporarily unavailable 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)ActiveconfirmedProblemInformation temporarily unavailableDiabetes mellitus with neuropathy (E11.40)ActiveconfirmedProblem Information temporarily unavailablePremature ventricular contraction (I49.3) ActiveconfirmedProblemInformation temporarily unavailableStable angina (I20.9) ActiveconfirmedProblemInformation temporarily unavailableHistory of [place] (myocardial infarction) (I25.2)ActiveconfirmedProblemInformation temporarily unavailableS/P coronary artery stent placement (Z95.5)ActiveconfirmedProblem Information temporarily unavailableOther peripheral vascular disease (I73.89) ActiveconfirmedProblemInformation temporarily unavailableSjoegren syndrome (M35.00)ActiveconfirmedProblemInformation temporarily unavailableCoronary heart disease (I25.10)ActiveconfirmedProblemInformation temporarily unavailable Presence of permanent cardiac pacemaker (Z95.0)ActiveconfirmedProblemInformation temporarily unavailableDiastolic HF (heart failure) (I50.30)Activeconfirmed ProblemInformation temporarily unavailable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)Active confirmedProblemInformation temporarily unavailablePresence of ileostomy (Z93.2) ActiveconfirmedProblemInformation temporarily unavailableAcute deep vein thrombosis (DVT) (I82.409)ActiveconfirmedProblemInformation temporarily unavailableCat scratch (W55.03XA)ActiveconfirmedProblemInformation temporarily unavailableOther injury of unspecified body region, initial encounter (T14.8XXA) ActiveconfirmedProblemInformation temporarily ypeirapcobo2io degree AV block (I44.1)ActiveconfirmedProblemInformation temporarily unavailableDiabetes mellitus (E11.9)ActiveconfirmedProblemInformation temporarily unavailableCOVID- 19 virus infection (U07.1)ActiveconfirmedProblemInformation temporarily unavailableChronic kidney disease, stage 3 unspecified (N18.30)Activeconfirmed ProblemInformation temporarily unavailableLow back pain, unspecified (M54.50) Activeconfirmed Vital Signs Heart Rate 78 /min 09/08/2024 Gghsnkkxgyq43.6 degrees Dmvrltrcct27/02/2025lood pressure gxahooshy95 mm Hg 06/02/20255888Qxmllqzc66 %09/08/20244668Tjbogg42 in06/02/2025lood pressure burnqyxg363 mm Hg06/02/20255670Dejpek444.2 lbs06/02/2025BMI30.16 kg/m206/02/2025 Encounters Encounter Location Date Provider Diagnosis [address] [place] [address] 02/20/2025 Omid Hoy Fatigue R53.83 ; Hypertension I10 ; Diabetes mellitus with neuropathy E11.40 ; Premature ventricular contraction I49.3 ; Diastolic HF (heart failure) I50.30 ; Obstructive sleep apnea G47.33 and Nevus D22.9 [facility] [address] [place] [address] 06/02/2025 Omid Hoy Hyperkalemia E87.5 [facility] (PODIATRY) [address] [place] [address] [place] [address] 09/08/2024 Yasmin Lubin Diabetes mellitus with neuropathy E11.40 ; Pain in right toe(s) M79.674 and Pain in left toe(s) M79.675 [facility] [address] [place] [address] 09/19/2024 Omid Hoy Other insomnia G47.09 [facility] [address] [place] [address] 10/17/2024 Omid Hoy Other insomnia G47.09 [facility] [address] [facility] [address] 11/21/2024 Omid Hoy Other insomnia G47.09 [facility] [address] [place] [address] 12/21/2024 Omid Hoy Other insomnia G47.09 [facility] [address] [facility] [address] 01/23/2025 Omid Hoy Other insomnia G47.09 [facility] [address] [facility] [address] 02/20/2025 Omid Hoy [facility] [place] [address] 02/25/2025Doug [facility] [place] [address]/Doug [facility] [place] [address]/25/2025Doug HoyOther insomnia G47.09[facility] [place] [address]/Doug Hoy Fatigue R53.83[facility] [place] [address]/Doug HoyFatigue R53.83[facility] [place] [address]/Doug HoyFatigue R53.83[facility] [place] [address]/ Omid HoyElevated ferritin R79.89 ; Fatigue R53.83 and Joint pain M25.50[facility] [place] [address]/ Omid HoyBNorthern [facility] [place] [address]/Doug HoyFatigue R53.83[facility] [place] [address]/[facility] [place] [address]/Doug HoyFatigue R53.83[facility] [place] [address] 07/04/2025Doug [facility]oyBVPe[facility] [place] [address]/08/2025Doug HoyFatigue R53.83[facility] [place] [address]/Doug HoyFatigue R53.83 Assessments Encounter Date Diagnosis (ICD Code) Assessment Notes Treatment Notes Treatment Clinical Notes Section Notes 06/02/2025 Hyperkalemia (ICD-10 - E87.5) 09/19/2024Other insomnia (ICD-10 - G47.09)10/17/2024Other insomnia (ICD-10 - G47.09)11/21/2024Other insomnia (ICD-10 - G47.09)12/21/2024Other insomnia (ICD- 10 - G47.09)01/23/2025Other insomnia (ICD-10 - G47.09)03/01/2025Other insomnia (ICD-10 - G47.09)03/23/2025Fatigue (ICD-10 - R53.83)04/24/2025Fatigue (ICD-10 - R53.83)04/25/2025Fatigue (ICD-10 - R53.83)04/25/2025Elevated ferritin (ICD-10 - R79.89)04/25/2025Fatigue (ICD-10 - R53.83)09/08/2024Diabetes mellitus with neuropathy (ICD-10 - E11.40) The [...] year or as needed for nail care. 09/08/2024Pain in right toe(s) (ICD-10 - M79.674)02/20/2025Fatigue (ICD-10 - R53.83)02/20/2025Hypertension (ICD-10 - I10)stabel here02/20/2025Diabetes mellitus with neuropathy (ICD-10 - E11.40)02/20/2025Premature ventricular contraction (ICD-10 - I49.3)02/20/2025Diastolic HF (heart failure) (ICD-10 - I50.30)05/22/2025Fatigue (ICD-10 - R53.83)06/19/2025Fatigue (ICD-10 - R53.83) 11/12/2025Fatigue (ICD-10 - R53.83)08/21/2025Fatigue (ICD-10 - R53.83)02/20/2025 Obstructive sleep apnea (ICD-10 - G47.33)needs meds ojmetv8609/08/2024Pain in left toe(s) (ICD-10 - M79.675)04/25/2025Joint pain (ICD-10 - M25.50)02/20/2025Nevus (ICD-10 - D22.9) Plan Of Treatment Pending Test Test Name Order Date CMP (COMPLETE METABOLIC PANEL) 3 SED RATE (ESR) 04/25/2025 HEMOGLOBIN A1C (GLYCO) 03/11/2023 HEMOGLOBIN A1C (GLYCO) 02/20/2025 INSULIN, TOTAL 02/20/2025 LIPID PANEL (CHOL/TRIG/HDL/LDL) 02/21/20 25 LIPID PANEL (CHOL/TRIG/HDL/LDL) 03/11/20 23 CBC WITH DIFF (EXP 07/2025) 03/11/2023 PSA, PROSTATE-SPECIFIC ANTIGEN 3 URIC ACID 02/20/2025 RHEUMATOID PANEL 04/25/2025 STOOL OCCULT BLOOD 02/20/2025 CEA 04/25/2025 THYROID PANEL (T4/TSH/FREE T3) 5 THYROID PANEL (T4/TSH/FREE T3) 3 PSA, SCREENING 02/20/2025 CMP (COMP MET SMITH) w/eGFR CKD-EPI 2024 CBC WITH DIFF 02/20/2025 Insurance Providers Payer Name Payer Address Payer Phone Subscriber Number Group Number Insured Name Patient Relationship to Insured Coverage Start Date Coverage End Date MEDICARE RAILROAD [address] [address] [place], [place] [id number] Jayne Francis - patient is the [facility] [address] [address] [place], [place] [id number], RonnieSelf - patient is the insured Medical (General) [...] vascular implants and grafts Z95.828 History of [place] (myocardial infarction) I2 5.2 Obstructive sleep apnea G47.33 S/P coronary artery stent placement Z95. 5 Diabetes mellitus E11.9 Hypertension I10 Insomnia G47.00 Sjoegren syndrome M35.00 Diverticulitis K57.92 Low back pain, unspecified M54.50 Pulmonary embolism I26.99 Arterial occlusive disease I74.9 Surgical History Surgery Date(Month/Year) Matt Filter Placement Abdominal SurgeryBack SurgeryCataract ExtractionColon resectionTURPTonsillectomy 05/2017Pacemaker PlacementHeart Cath w/ stent /2017
--- OUTSIDE RECORDS SUMMARY | 2025-09-02 18:03 | XMS_ITS | Patient Health Record ---
Author Organization [employer] [facility] Address [address] [address], [place] [address] Care Team Providers Care Recruiting Coordinator Name Role Phone John Stark M.D. Primary Care Provider UnavailIsaias Duke Unavailable [phone] Allergies Allergen (clinical drug ingredient) Drug/Non Drug Allergy documented on EMR Reaction Allergy Type Onset Date Status atorvastatin Atorvastatin Unknown Drug Allergy ActivecelecoxibCelecoxibUnknownDrug AllergyActive Reason For Referral No Information Medications Medication SIG (Take, Route, Frequency, Duration) Notes Start Date End Date Status Ferrous Sulfate ActiveEntresto 24-26 MG Tablet1 tablet Orally Twice a dayActiveFarxiga 10 MG Tablet1 tablet Orally Once a dayActiveAspirin 81 81 MG Tablet Delayed Release1 tablet Orally Once a dayActiveSpironolactone 25 MG TabletTAKE 1/2 TABLET BY MOUTH IN THE MORNING Oral; Duration: 90 DaysActiveVitamin T6UmgsfbMqkpuufk Sodium 5 MG TabletTAKE 1 TABLET BY MOUTH EVERY DAY DIRECTED BY [facility] Oral; Duration: 90 DaysActiveCarvedilol 6.25 MG TabletTake 3 tablets (18.75 mg) by mouth with breakfast and with evening meal. Oral; Duration: 90 DaysActiveAzithromycin 250 MG TabletTAKE 2 TABLETS BY MOUTH TODAY, THEN TAKE 1 TABLET DAILY FOR 4 DAYS DIRECTED Oral; Duration: 5 DaysActiveEzetimibe 10 MG TabletTAKE 1 TABLET BY MOUTH EVERY DAY DIRECTED Oral; Duration: 90 DaysActive Omeprazole 40 MG Capsule Delayed ReleaseTAKE 1 CAPSULE BY MOUTH IN THE MORNING 30 MINUTES BEFORE MEAL Oral; Duration: 90 DaysActiveIsosorbide Mononitrate ER 30 MG Tablet Extended Release 24 HourTAKE 1 TABLET BY MOUTH ONCE A DAY Oral; Duration: 90 DaysActiveLeqvioActive Social History Section Notes: Patient is a former smoker. Encounters Encounter Location Date Provider Diagnosis [email or web address] 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 I recommended an xray however he declined and given his pain has improved and toe is relatively parallel to the hallux and 3rd toes in the frontal plane he will not require surgery if he did fracture the toe. The nail was easily removed with dried blood under the nail plate. I recommend rest and elevation. He is to closely monitor his symptoms and will call if he has any mlfmhq9206/19/2025Traumatic onycholysis (ICD-10 - L60.1) 06/19/2025Onychomycosis (ICD-10 - B35.1)Patient was seen and evaluated. Patient education was provided and all questions answered to satisfaction. Patient meets class findings with absent pedal pulses. Toenails 1-10 were sharply debrided wi thout incident and to patient satisfaction. I discussed use of topical antifungals and their efficacy as well as recommended Leander's Vapor Rub to soften the hard brittle toenails. I discussed and did not recommend use of PO antifungal due to possible hepatotoxicity. Patient will f/u in 3 months for r outine nailcare. No new x-rays are required. Plan Of Treatment No Information Insurance Providers Payer Name Payer Address Payer Phone Subscriber Number Group Number Insured Name Patient Relationship to Insured Coverage Start Date Coverage End Date [employer] [place] J[address] [place], [place] [address] [phone] [id number] Jayne Garvey - [facility] [address] [place] [id number], RonnieSelf - patient is the insured Medical (General) History Medical History History ICD Code Diabetes HypertensionHeart Disease
--- OUTSIDE RECORDS SUMMARY | 2025-09-02 18:03 | XMS_ITS | Clinical Summary ---
Author Organization [facility] Address [address] [place] [address] Care Team Providers Care Lead Principal Technical Architect Name Role Phone John Stark MD Primary Care Provider [phone] Allergies Active AllergyReactionsCriticalityNoted OexjVayhtxgpUogbcyf-Tbk-Veo Reductase KktvgvnapkJlvz88/10/2017 Medications MedicationSigDispense QuantityRefillsLast FilledStart DateEnd DateStatus aspirin, enteric coated (ASPIRIN, ENTERIC COATED) 81 mg EC tablet Take 81 mg by mouth once daily.Active torsemide (DEMADEX) 20 mg tablet Take 20 mg by mouth once daily.Active POTASSIUM ORAL Take 20 mg by mouth once daily.Active OMEPRAZOLE ORAL Take 20 mg by mouth once daily.Active isosorbide mononitrate ER (IMDUR) 30 mg 24 hr tablet Take 30 mg by mouth once daily.Active Cholecalciferol, Vitamin D3, (VITAMIN D-3) 2,000 unit cap Take by mouth.Active WARFARIN SODIUM (WARFARIN ORAL) Take by mouth. 5mg x 3 days and 7.5mg x 4 daysActive FERROUS SULFATE (IRON ORAL) Take 325 mg by mouth twice daily.Active temazepam (RESTORIL) 15 mg cap Take by mouth at bedtime as needed.Active POLYETHYLENE GLYCOL 3350 (MIRALAX ORAL) Take by mouth.Active NIFEdipine XL (ADALAT CC) 30 mg 24 hr tablet Take 1 tablet by mouth once daily. 30 tablet 11/25/2016Active Active Problems ProblemNoted DateDiagnosed DatePrimary ckuzacqgwtvw57/21/2017Pain in both lower fifhzdnkurd23/21/2017IVC rirmdptfir86/21/6879Fgsbsukawaqsgt64/21/2017 Social History Tobacco UseTypesPacks/DayYears UsedDateSmoking Tobacco: FormerSmokeless Tobacco: CurrentChewSex and Gender InformationValueDate RecordedSex Assigned at BirthNot on fileLegal VdoRbry2609/22/2016 12:45 PM ESTGender IdentityNot on fileSexual OrientationNot on file Last Filed Vital Signs Vital SignReadingTime TakenCommentsBlood Zipuvcgm890/8411/25/2016 11:28 AM EDT (from Extended Vitals)Clopq2312/21/2017 11:28 AM EDT(from Extended Vitals) Pcfynyvsnxr63.7 ??C (98 ??F)11/25/2016 11:25 AM EDTRespiratory Rate--Oxygen Zevahonmok72%11/25/2016 11:25 AM EDTInhaled Oxygen Concentration--Dgpfru016.8 kg (292 lb 11.2 oz)11/25/2016 11:25 AM NMQKlanfz433.1 cm (5' 10.5 )11/25/2016 11:25 AM EDTBody Mass Index41. 11:25 AM EDT Plan of Treatment Health MaintenanceDue DateLast DoneCommentsAnxiety Wmqjpmheq63/04/1962Depression Ayooyxfah20/04/1962DTaP,Tdap,Td Vaccine (1 - Tdap)12/09/1962Diabetes Screening 12/09/1988Pneumococcal Vaccine: 50+ (1 of 1 - PCV)12/09/1993Shingrix Vaccine (1 of 2)12/09/1993RSV Vaccine (1 - 1-dose 75+ series)12/09/2018Advance Directive Febuvbfogn76/01/2025ovid-19 Vaccine ( - 2024-26 season)2025Influenza Vaccine (#1)2025 Insurance Care Teams Team MemberRelationshipSpecialtyStart Date John Stark MD PCP - GeneralFawvly Medicine09/22/16
[2025-09-02 18:29] LABS: Hematocrit 45.5 % (42.0-54.0); Hemoglobin 14.8 g/dL (14.0-18.0); Immature Granulocytes Abs Auto 0.01 10^3/uL (0.00-0.03); Immature Granulocytes Pct Auto 0.1 % (0.0-0.5); Lymphocytes Absolute Auto 2.0 10^3/uL (1.2-3.8); Mean Corpuscular HGB Conc 32.5 g/dL (29.9-35.2); Mean Corpuscular Hemoglobin 30.0 pg (25.9-34.0); Mean Corpuscular Volume 92.3 fL (80.0-94.0); Platelet Count 192 10^3/uL (150-450); Red Blood Count 4.93 10^6/uL (4.70-6.10); White Blood Count 6.7 10^3/uL (4.0-11.0)
[2025-09-02 18:49] LABS: INR 3.06; Prothrombin Time 29.9 sec (9.0-11.6)
[2025-09-02 18:59] LABS: Anion Gap 8.3; Blood Urea Nitrogen 28.0 mg/dL (7.0-18.0); Calcium 9.1 mg/dL (8.5-10.1); Carbon Dioxide 30.8 mmol/L (21.0-32.0); Chloride 103 mmol/L (98-107); Estimated GFR (African America 57 (>=60 mL/min/1.73m^2); Estimated GFR (Non-African Ame 47 (>=60 mL/min/1.73m^2); Glucose 116 mg/dL (74-106); Potassium 4.1 mmol/L (3.5-5.1); Sodium 138 mmol/L (136-145)
[2025-09-02 19:09] LABS: Partial Thromboplastin Time 38.4 sec (22.3-36.2)
[2025-09-03] VITALS (9 sets, daily range): BP systolic 138–149; BP diastolic 82–93; PULSE 65–84
== END 2025-09-03 02:12 | disposition short-term general hospital (02) ==
PROVIDERS: Emergency Medicine; Emergency Provider Student in an Organized Health Care Education/Training Program; PCP Family Medicine
DX: R07.89 Other chest pain (principal); I25.119 Atherosclerotic heart disease of native coronary artery with unspecified angina pectoris
CPT/HCPCS: 36415; 71045; 80048; 84484; 85025; 85610; 85730; 86850; 86900; 86901; 93005; 99285